=== PATIENT | male | born 1945 | race Caucasian/White ===

== ENCOUNTER → 2016-04-29 | Outpatient (CLI) | payer MEDICARE ==
[2016-04-29 09:59] LABS: ALT 28 U/L (21-72); AST 13 U/L (17-59); Alkaline Phosphatase 61 U/L (38-126); Anion Gap 15 mmol/L; Blood Urea Nitrogen 19 mg/dL (9-20); Calcium 9.3 mg/dL (8.4-10.2); Carbon Dioxide 23 mmol/L (22-30); Chloride 102 mmol/L (98-107); Cholesterol 126 mg/dL (<200); Glucose 151 mg/dL (74-99); HDL Cholesterol 54 mg/dL (40-60); Non-African American GFR(MDRD) >60 (>60 ml/min/1.73 sqM); Potassium 4.6 mmol/L (3.5-5.1); Sodium 140 mmol/L (137-145); Total Bilirubin 0.4 mg/dL (0.2-1.3); Total Protein 6.6 g/dL (6.3-8.2); Triglycerides 62 mg/dL (<150)
[2016-04-29 10:45] LABS: Vitamin B12 >1000 pg/mL
== END ==
LOC: LABWHC1 07:14
PROVIDERS: ATTEND Internal Medicine Endocrinology, Diabetes & Metabolism
DX: E11.65 Type 2 diabetes mellitus with hyperglycemia (principal); E78.5 Hyperlipidemia, unspecified; E89.2 Postprocedural hypoparathyroidism; D51.8 Other vitamin B12 deficiency anemias; I10 Essential (primary) hypertension
CPT/HCPCS: 36415; 80053; 80061; 82043; 82306; 82607; 83970

== ENCOUNTER 2016-06-21 15:38 | Emergency (ER) | payer MEDICARE ==
[2016-06-21 15:46] VITALS: BP 135/57; PULSE 91; RESP 20; TEMP 97.3
[2016-06-21] MEDS ORDERED: HYDROmorphone 1 MG/ML 1 ML SYRINGE IM STA (16:56)
--- NOTE | 2016-06-21 17:02 | ED ---
General Adult HPI - General Chief complaint: Recheck/Abnormal Lab/Rx Stated complaint: pain all over Time Seen by Provider: 06/21/16 16:34 Source: patient, RN notes reviewed Mode of arrival: ambulatory Limitations: no limitations - History of Present Illness Initial comments: Patient 71-year-old male who presents emergency room today with a chief complaint of chronic pain. Patient does admit that he's had pain ongoing over the last 3 months. He states been using his [place] he believes at home with little relief the symptoms more recently. Patient does admit that he was on steroids started 3 months ago which did seem to help with the symptoms but played with his sugar and he was taken off. He states all the pain is coming back now. States that he does have sciatic pain. He does admit to back surgeries and neck surgeries. Admits to numbness tingling in the arms or extremities. States she's had this in the past. Patient states that he is also had carpal tunnel surgery still having numbness tingling of the right hand. He denies any new symptoms. Denies any injuries or complaints. Patient denies any recent fever, chills, shortness of breath, chest pain, back pain, abdominal pain, nausea or vomiting, dysuria or hematuria, constipation or diarrhea, headaches or visual changes, or any other complaints. - Related Data Home Medications Medication Instructions Recorded Confirmed Aspirin 81 mg PO DAILY 01/17/14 10/06/15 Hydrocodone/Acetaminophen [Vicodin 1 tab PO QID PRN 01/17/14 10/06/15 Hp 10-300 mg Tablet] Omeprazole [PriLOSEC] 20 mg PO DAILY 01/17/14 10/06/15 Quinapril HCl 40 mg PO DAILY 01/17/14 10/06/15 glipiZIDE [Glucotrol] 10 mg PO BID 01/17/14 10/06/15 metFORMIN HCL 1,000 mg PO BID 01/17/14 10/06/15 amLODIPine BESYLATE [Norvasc] 10 mg PO DAILY 04/19/14 10/06/15 Atorvastatin [Lipitor] 40 mg PO DAILY 08/08/14 10/06/15 Cyanocobalamin [Vitamin B-12] 1,000 mcg SQ QMONTH 07/09/15 10/06/15 Ciprofloxacin HCl [Cipro] 500 mg PO Q12HR 10/06/15 10/06/15 metroNIDAZOLE [Flagyl] 500 mg PO TID 10/06/15 10/06/15 Previous Rx's Medication Instructions Recorded Dicyclomine HCl [Bentyl] 20 mg PO QID #30 tab 10/06/15 Naproxen [Naprosyn] 500 mg PO Q12HR #60 tab 10/06/15 Ondansetron HCl [Zofran] 4 mg PO Q8HR #30 tab 10/06/15 Allergies Allergy/AdvReac Type Severity Reaction Status Date / Time No Known Allergies Allergy Verified 06/21/16 15:46 Review of Systems ROS Statement: Those systems with pertinent positive or pertinent negative responses have been documented in the HPI. ROS Other: All systems not noted in ROS Statement are negative. Past Medical History Past Medical History: Coronary Artery Disease (CAD), Diabetes Mellitus, GERD/ Reflux, Hyperlipidemia, Hypertension History of Any Multi-Drug Resistant Organisms: None Reported Past Surgical History: Back Surgery, Heart Catheterization With Stent, Orthopedic Surgery Additional Past Surgical History / Comment(s): neck fusion, carpel tunnel Past Anesthesia/Blood Transfusion Reactions: No Reported Reaction Date of Last Stent Placement:: 2011 Past Psychological History: No Psychological Hx Reported Smoking Status: Never smoker Past Alcohol Use History: None Reported Past Drug Use History: None Reported General Exam - General Exam Comments Initial Comments: General: The patient is awake and alert, in no distress, and does not appear acutely ill. Eye: Pupils are equal, round and reactive to light, extra-ocular movements are intact. No nystagmus. There is normal conjunctiva bilaterally. No signs of icterus. Ears, nose, mouth and throat: There are moist mucous membranes and no oral lesions. Neck: The neck is supple, there is no tenderness or JVD. Cardiovascular: There is a regular rate and rhythm. No murmur, rub or gallop is appreciated. Respiratory: Lungs are clear to auscultation, respirations are non-labored, breath sounds are equal. No wheezes, stridor, rales, or rhonchi. Gastrointestinal: Soft, non-distended, non-tender abdomen without masses or organomegaly noted. There is no rebound or guarding present. No CVA tenderness. Bowel sounds are unremarkable. Musculoskeletal: Normal ROM, no tenderness. Strength 5/5. Sensation intact. Pulses equal bilaterally 2+. Neurological: A&O x 3. CN II-XII intact, There are no obvious motor or sensory deficits. Coordination appears grossly intact. Speech is normal. Skin: Skin is warm and dry and no rashes or lesions are noted. Psychiatric: Cooperative, appropriate mood & affect, normal judgment. Limitations: no limitations Course Vital Signs 06/21/16 15:40 Temperature 97.3 F L Pulse Rate 91 Respiratory 20 Rate Blood Pressure 135/57 O2 Sat by Pulse 96 Oximetry Medical Decision Making - Medical Decision Making Patient admits that these are chronic symptoms today. He denies any new injuries or complaints. Case discussed with attending physician . Patient be given a shot of pain medication given here in emergency room discharged and advised follow-up with family doctor. Disposition Clinical Impression: Chronic pain Disposition: HOME SELF-CARE Condition: Good Instructions: Chronic Pain (ED) Additional Instructions: Please follow-up family doctor over the next 2 days as discussed. Please return to emergency room if any symptoms increase or worsen or for any other concerns. Time of Disposition: 17:01
== END 2016-06-21 17:33 | disposition home or self-care (01) ==
LOC: EC 15:38
DX: G89.29 Other chronic pain (principal); M54.9 Dorsalgia, unspecified; E11.9 Type 2 diabetes mellitus without complications; E78.5 Hyperlipidemia, unspecified; I10 Essential (primary) hypertension; K21.9 Gastro-esophageal reflux disease without esophagitis; Z79.82 Long term (current) use of aspirin; Z79.84 Long term (current) use of oral hypoglycemic drugs; Z79.899 Other long term (current) drug therapy
CPT/HCPCS: 99283; 96372; J1170

== ENCOUNTER → 2016-08-12 | Outpatient (CLI) | payer MEDICARE ==
[2016-08-12 12:21] LABS: ALT 37 U/L (21-72); AST 14 U/L (17-59); Alkaline Phosphatase 51 U/L (38-126); Anion Gap 13 mmol/L; Blood Urea Nitrogen 26 mg/dL (9-20); Calcium 9.4 mg/dL (8.4-10.2); Carbon Dioxide 24 mmol/L (22-30); Chloride 106 mmol/L (98-107); Cholesterol 172 mg/dL (<200); Glucose 84 mg/dL (74-99); HDL Cholesterol 66 mg/dL (40-60); Non-African American GFR(MDRD) >60 (>60 ml/min/1.73 sqM); Potassium 4.3 mmol/L (3.5-5.1); Sodium 143 mmol/L (137-145); Total Bilirubin 0.3 mg/dL (0.2-1.3); Total Protein 6.6 g/dL (6.3-8.2); Triglycerides 124 mg/dL (<150)
[2016-08-12 13:06] LABS: Vitamin B12 948 pg/mL
== END | disposition home or self-care (01) ==
LOC: LABWHC1 07:33
PROVIDERS: ATTEND Internal Medicine Endocrinology, Diabetes & Metabolism
DX: E11.65 Type 2 diabetes mellitus with hyperglycemia (principal)
CPT/HCPCS: 36415; 80053; 80061; 82043; 82306; 82607

== ENCOUNTER → 2016-09-13 | Outpatient (CLI) | payer MEDICARE ==
--- NOTE | 2016-09-13 08:45 | MR ---
EXAMINATION TYPE: MR lumbar spine wo/w con DATE OF EXAM: 09/13/2016 COMPARISON: Prior lumbar MRI 08/15/2012 HISTORY: Low back pain TECHNIQUE: Multiplanar, multisequence images of the lumbar spine were acquired utilizing 17 mL intravenous Multi Nel gadolinium contrast. L1-L2: Similar to prior exam. Mild facet arthropathy, no significant spinal stenosis or foraminal enc roachment, no disc herniation. L2-L3: Circumferential posterior disc bulge causes anterior mass effect on the thecal sac, spinal catalina nosis shows a similar appearance and is mild. No significant foraminal encroachment. There is facet a rthropathy encroaching on the lateral recesses. L3-L4: There has been interval disc herniation present. Extension in the right posterior paracentral location results in marked encroachment on the right neural foramen as well as anterolateral mass eff ect on the thecal sac. Some peripheral enhancement is present posterior to the L4 vertebral body like ly some granulation tissue at the level of disc herniation or possibly sequestered fragment in the ri ght paracentral location. Facet arthropathy changes are present. Only mild spinal stenosis. L4-L5: Laminectomy changes are present, there is mild spinal stenosis. Posterior extension of endplat e disc complex causes anterior mass effect on the thecal sac. Differential extension of endplate disc complex results in bilateral foraminal encroachment left greater than right. L5-S1: Broad-based posterior disc bulge contacts anterior thecal sac and possibly the S1 nerve roots right greater than left, circumferential extension of endplate disc complex results in bilateral fora regina encroachment as on prior exam. There are facet arthropathy changes. There is mild spinal stenos is. Findings are similar appearance to prior exam. Lumbar segments are intact. No paraspinal masses are identified. Conus medullaris has a normal appe arance. There is loss of disc height and signal greatest at L3-4, L4-5, there is endplate discogenic marrow signal change, large Schmorl's node present at the inferior aspect of L3 which has progressed in the interval. Multilevel vacuum disc phenomenon present at the intervertebral levels. Multilevel s pondylosis is present. Minimal retrolisthesis grade 1 L4-5, there is a mild spinal curvature. IMPRESSION: Disc herniation is an interval finding with probable sequestered fragment posterior to the L4 vertebr al body in the right paracentral location. Multilevel degenerative disc disease, foraminal encroachme nt, postop changes, spinal curvature and facet arthropathy. There is some improvement in spinal steno sis.
== END | disposition home or self-care (01) ==
LOC: RADMRIMAIN 07:13
PROVIDERS: ATTEND Internal Medicine
DX: M48.06 Spinal stenosis, lumbar region (principal); M51.26 Other intervertebral disc displacement, lumbar region; M51.36 Other intervertebral disc degeneration, lumbar region; M46.06 Spinal enthesopathy, lumbar region; M43.8X6 Other specified deforming dorsopathies, lumbar region
CPT/HCPCS: 72158; A9577

== ENCOUNTER → 2016-09-16 | Outpatient (CLI) | payer MEDICARE ==
--- NOTE | 2016-09-16 10:05 | BD ---
EXAMINATION TYPE: MG DEXA axial skeleton. 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 History of Fracture in Adulthood: YES Secondary Osteoporosis: 1. Type 1 Diabetes: NO 2. Hyperthyroidism: NO 3. Menopause before 45: NA 4. Malnutrition: NO 5. Chronic liver disease: NO Rheumatoid Arthritis: NO Current Tobacco Use: NO RISK FACTORS HISTORY OF: Surgery to Spine/Hip(right/left)/Wrist (right/left): CSPINE 2007 ,LUMBAR 1979 AND 2009 Family History of Osteoporosis: YES Active: NO MEDICATIONS: Prednisone or other steroids: YES How Lon05/2016 Additional Medications: PREDNISONE, OMEPRAZOLE, ACCUPRIL, ASPIRIN, GLUCOPHAGE, GLUCOTROL, QUINPRIL, P REVACHOL,AMLODIIPINE, NYTROGLYCERINE,ATORVASTATIN Additional History: EXAM MEASUREMENTS: Bone mineral densitometry was performed using the [employer] System. Bone mineral density as measured about the Lumbar spine is: ----- L1-L4(G/cm2): LUMBAR SURG X 2 Bone mineral density about the R hip (g/cm2): 0.952 Bone mineral density about the L hip (g/cm2): 1.060 T Score values are as follows: -----R Neck: -0.6 -----L Neck: 0.2 -----R Total: -0.5 -----L Total: -0.1 Bone mineral density has: Decreased -3.2% since study of: 2013 IMPRESSION: No evidence for osteoporosis or osteopenia. NOTE: T-SCORE=SD OF THE YOUNG ADULT MEAN.
== END | disposition home or self-care (01) ==
LOC: RADBDWWP 07:03
PROVIDERS: ATTEND Internal Medicine
DX: Z79.52 Long term (current) use of systemic steroids (principal)
CPT/HCPCS: 77080

== ENCOUNTER → 2016-12-03 | Outpatient (CLI) | payer MEDICARE ==
[2016-12-03 07:57] LABS: EKG EKG PERFORMED
[2016-12-03 08:33] LABS: Basophils % (A) 1 %; CH 29.2; CHCM 32.4; Eosinophils # (A) 0.1 k/uL (0-0.7); Eosinophils % (A) 1 %; HCT 41.8 % (39.0-53.0); HGB 13.5 gm/dL (13.0-17.5); Luc # (Auto) 0.13; Luc % (Auto) 2; Lymphocytes # (A) 1.4 k/uL (1.0-4.8); Lymphocytes % (A) 21 %; MCH 29.3 pg (25.0-35.0); MCHC 32.3 g/dL (31.0-37.0); MCV 90.8 fL (80.0-100.0); Mean Platelet Volume 6.8; Monocytes # (A) 0.2 k/uL (0-1.0); Monocytes % (A) 4 %; Neutrophils # (A) 4.7 k/uL (1.3-7.7); Neutrophils % (A) 72 %; RDW 14.7 % (11.5-15.5); WBC 6.6 k/uL (3.8-10.6); WBC (Perox) 6.79
[2016-12-03 08:34] LABS: Partial Thromboplastin Time 25.5 sec (22.0-30.0); Prothrombin Time 10.4 sec (9.0-12.0)
[2016-12-03 08:39] LABS: ALT 44 U/L (21-72); AST 22 U/L (17-59); Alkaline Phosphatase 80 U/L (38-126); Anion Gap 14 mmol/L; Blood Urea Nitrogen 19 mg/dL (9-20); Calcium 9.6 mg/dL (8.4-10.2); Carbon Dioxide 20 mmol/L (22-30); Chloride 103 mmol/L (98-107); Glucose 210 mg/dL (74-99); Non-African American GFR(MDRD) >60 (>60 ml/min/1.73 sqM); Potassium 5.1 mmol/L (3.5-5.1); Sodium 137 mmol/L (137-145); Total Bilirubin 0.5 mg/dL (0.2-1.3); Total Protein 7.6 g/dL (6.3-8.2)
[2016-12-03 09:04] LABS: Appearance,Urine Clear (Clear); Bilirubin,Urine Negative (Negative); Glucose,Urine (UA) Trace (Negative); Ketones,Urine Negative (Negative); Leukocyte Esterase,Urine Negative (Negative); Nitrite,Urine Negative (Negative); PH, Urine 5.5 (5.0-8.0); Protein,Urine Negative (Negative); Specific Gravity,Urine 1.013 (1.001-1.035); UA Billing (MACRO vs. MICRO) CHEM; Urobilinogen,Urine <2.0 mg/dL (<2.0)
== END | disposition home or self-care (01) ==
LOC: LABWHC1 07:48
DX: M51.36 Other intervertebral disc degeneration, lumbar region (principal); Z79.01 Long term (current) use of anticoagulants
CPT/HCPCS: 36415; 80053; 81003; 85025; 85610; 85730; 93005

== ENCOUNTER → 2016-12-09 | Outpatient (CLI) | payer MEDICARE ==
[2016-12-09 11:25] LABS: Hemoglobin A1C 6.7 % (4.2-6.1)
[2016-12-09 13:33] LABS: ALT 42 U/L (21-72); AST 19 U/L (17-59); Alkaline Phosphatase 72 U/L (38-126); Anion Gap 14 mmol/L; Blood Urea Nitrogen 19 mg/dL (9-20); Carbon Dioxide 22 mmol/L (22-30); Chloride 102 mmol/L (98-107); Cholesterol 190 mg/dL (<200); Glucose 154 mg/dL (74-99); HDL Cholesterol 55 mg/dL (40-60); Non-African American GFR(MDRD) >60 (>60 ml/min/1.73 sqM); Potassium 4.6 mmol/L (3.5-5.1); Sodium 138 mmol/L (137-145); Total Bilirubin 0.5 mg/dL (0.2-1.3); Total Protein 7.3 g/dL (6.3-8.2)
[2016-12-09 14:31] LABS: Vitamin B12 >1000 pg/mL
== END | disposition home or self-care (01) ==
LOC: LABWHC1 08:08
PROVIDERS: ATTEND Internal Medicine Interventional Cardiology
DX: E78.2 Mixed hyperlipidemia (principal); E11.65 Type 2 diabetes mellitus with hyperglycemia; E55.9 Vitamin D deficiency, unspecified; E53.8 Deficiency of other specified B group vitamins
CPT/HCPCS: 36415; 80053; 80061; 82306; 82607; 83036

== ENCOUNTER → 2017-01-07 | Outpatient (CLI) | payer MEDICARE ==
--- NOTE | 2017-01-07 08:54 | XR ---
EXAMINATION TYPE: XR lumbar spine 2 or 3V DATE OF EXAM: 01/07/2017 COMPARISON: 09/13/2016 MRI HISTORY: 71-year-old male follow-up after lumbar fusion TECHNIQUE: 3 views FINDINGS: Post surgical changes of L3-S1 posterior fusion. There appear to be laminectomy at these correspondin g levels with incompletely consolidated lateral osseous fusion. Fixed grade 1 retrolisthesis L3-L4 wa s present on the prior MRI. Vertebral body heights are maintained. IMPRESSION: Postsurgical changes of L3-S1 posterior fusion with corresponding laminectomies. Vertebral body heigh ts are maintained.
== END ==
LOC: RADXRMAIN 08:15
DX: M43.26 Fusion of spine, lumbar region (principal)
CPT/HCPCS: 72100

== ENCOUNTER → 2017-01-17 | Outpatient (CLI) | payer MEDICARE ==
--- NOTE | 2017-01-17 09:06 | XR ---
EXAMINATION TYPE: XR chest 2V DATE OF EXAM: 01/17/2017 COMPARISON: 07/09/2015 TECHNIQUE: PA and lateral views submitted. HISTORY: Cough FINDINGS: Elevated left hemidiaphragm pleural thickening effusion stable. Previous surgery involving the cervic al spine. Pulmonary arteries are slightly prominent size. No pneumothorax or pleural effusion. Linear density in the left upper lobe is also stable suggestive of scar or atelectasis. IMPRESSION: 1. Chronic pleural-parenchymal changes.
== END ==
LOC: RADXRMAIN 08:24
PROVIDERS: ATTEND Internal Medicine
DX: J98.4 Other disorders of lung (principal)
CPT/HCPCS: 71020

== ENCOUNTER → 2017-04-09 | Outpatient (CLI) | payer MEDICARE ==
--- NOTE | 2017-04-09 09:37 | XR ---
EXAMINATION TYPE: XR lumbar spine 2 or 3V DATE OF EXAM: 04/09/2017 CLINICAL HISTORY: Spinal stenosis, back pain, and prior surgical fusion in December. TECHNIQUE: Frontal and lateral views of the lumbar spine were obtained. COMPARISON: 01/17/2019 FINDINGS: Pedicular screws and fixation rods traverse the L3-S1 vertebral levels with resection of th e posterior elements at these levels and intervertebral disc age at L5-S1. Retrolisthesis (grade 1) o f L3 on L4 is unchanged from the prior exam. Multilevel intervertebral disc space narrowing, endplate sclerosis and small anterior osteophytes are seen. Heterotopic ossification is noted at the facets. Vertebral bodies maintain normal vertebral body heights. Mild atherosclerosis is seen of the abdomina l aorta and its branches. IMPRESSION: Unchanged minimal retrolisthesis of L3 on L4 in comparison to the prior, surgically fixat ed. Stable postsurgical changes of L3-S1.
== END ==
LOC: RADXRMAIN 09:05
DX: M48.062 Spinal stenosis, lumbar region with neurogenic claudication (principal); Z98.890 Other specified postprocedural states
CPT/HCPCS: 72100

== ENCOUNTER → 2017-06-30 | Outpatient (CLI) | payer MEDICARE ==
[2017-06-30 07:54] LABS: Albumin 4.4 g/dL (3.5-5.0); Calcium 9.6 mg/dL (8.4-10.2); Potassium 4.8 mmol/L (3.5-5.1); Total Bilirubin 0.5 mg/dL (0.2-1.3); Total Protein 7.1 g/dL (6.3-8.2)
--- NOTE | 2017-06-30 07:55 | XR ---
EXAMINATION TYPE: XR lumbar spine 2 or 3V DATE OF EXAM: 06/30/2017 CLINICAL HISTORY: Back pain with lumbar surgery in December 2016. TECHNIQUE: Frontal and lateral images of the lumbar spine are obtained. COMPARISON: None FINDINGS: There are 5 lumbar type vertebral bodies identified. There is fusion of the L3-S1 vertebr al bodies with intervertebral disc cages, pedicular rods and fixation screws. There is resection of t he posterior elements at these levels. Old healed callused fracture of the transverse process of L3 o n the left is noted. Right transverse process at L1 is hypoplastic. Lumbar spine vertebral bodies bo ntain vertebral body height and alignment. Mild multilevel degenerative changes are demonstrated as s mall anterior osteophytes. Mild calcific atheromatous changes are present of the abdominal aorta. IMPRESSION: 1. Postsurgical changes of L3-S1 with no acute fracture or malalignment is seen in the lumbar spine. 2. Mild multilevel degenerative changes and old healed fracture deformity of the transverse process o f L3 on the left.
[2017-06-30 20:28] LABS: Hemoglobin A1C 6.6 % (4.0-6.0)
== END | disposition home or self-care (01) ==
LOC: LABWHC1 07:00
PROVIDERS: ATTEND Internal Medicine Endocrinology, Diabetes & Metabolism
DX: M47.816 Spondylosis without myelopathy or radiculopathy, lumbar region (principal); E78.2 Mixed hyperlipidemia; Z98.1 Arthrodesis status; E11.65 Type 2 diabetes mellitus with hyperglycemia
CPT/HCPCS: 36415; 72100; 80053; 80061; 82043; 82306; 82570; 82607; 83036

== ENCOUNTER 2017-08-28 19:16 | Inpatient (IN) | payer MEDICARE ==
[2017-08-28] MEDS ORDERED: KETOROLAC 30 MG/ML 1 ML VIAL IVP STA (21:09)
[2017-08-28] MEDS ORDERED: SODIUM CHLORIDE 0.9% 500 ML IV STA (21:09)
--- NOTE | 2017-08-28 21:14 | ED ---
General Adult HPI - General Chief complaint: Chest Pain Stated complaint: chest pain/fever/upset stomach Time Seen by Provider: 08/28/17 21:00 Source: patient, RN notes reviewed, old records reviewed Mode of arrival: ambulatory Limitations: no limitations - History of Present Illness Initial comments: 72-year-old male presenting for evaluation of fever, sore throat, and chest pain. Patient states he's had these symptoms throughout the day today. It began this morning which was approximately 12-14 hours prior to arrival. He's felt very weak and fatigue throughout the day. Denies cough. Denies rhinorrhea. Chief complaint is sore throat however he did have some central chest pain. This was constant throughout the day. He does have history of CAD and previous stenting. No dyspnea. No vomiting or diarrhea. He had some mild abdominal pain which was primarily left lower quadrant. No dysuria or hematuria. - Related Data Home Medications Medication Instructions Recorded Confirmed Quinapril HCl 40 mg PO DAILY 01/17/14 08/28/17 glipiZIDE [Glucotrol] 10 mg PO BID 01/17/14 08/28/17 metFORMIN HCL 1,000 mg PO BID 01/17/14 08/28/17 amLODIPine BESYLATE [Norvasc] 10 mg PO DAILY 04/19/14 08/28/17 Atorvastatin [Lipitor] 40 mg PO DAILY 08/08/14 08/28/17 HYDROcodone/APAP 10-325MG [[place] 1 tab PO QID PRN 06/21/16 08/28/17 10-325] Pregabalin [Lyrica] 150 mg PO BID 06/21/16 08/28/17 Aspirin EC [Ecotrin Low Dose] 81 mg PO DAILY 08/28/17 08/28/17 Omeprazole 20 mg PO DAILY 08/28/17 08/28/17 Allergies Allergy/AdvReac Type Severity Reaction Status Date / Time No Known Allergies Allergy Verified 08/28/17 21:44 Review of Systems ROS Statement: Those systems with pertinent positive or pertinent negative responses have been documented in the HPI. ROS Other: All systems not noted in ROS Statement are negative. Past Medical History Past Medical History: Coronary Artery Disease (CAD), Diabetes Mellitus, GERD/ Reflux, Hyperlipidemia, Hypertension History of Any Multi-Drug Resistant Organisms: None Reported Past Surgical History: Back Surgery, Heart Catheterization With Stent, Orthopedic Surgery Additional Past Surgical History / Comment(s): neck fusion, carpel tunnel Past Anesthesia/Blood Transfusion Reactions: No Reported Reaction Date of Last Stent Placement:: 2011 Past Psychological History: No Psychological Hx Reported Smoking Status: Never smoker Past Alcohol Use History: None Reported Past Drug Use History: None Reported General Exam Limitations: no limitations General appearance: alert, in no apparent distress Head exam: Present: atraumatic, normocephalic Eye exam: Present: normal appearance, PERRL, EOMI ENT exam: Present: other (Tonsillar swelling with erythema, no exudate) Neck exam: Present: normal inspection, full ROM. Absent: tenderness, meningismus Respiratory exam: Present: normal lung sounds bilaterally. Absent: respiratory distress, wheezes Cardiovascular Exam: Present: regular rate, normal rhythm GI/Abdominal exam: Present: soft, tenderness (Left lower quadrant tenderness to palpation). Absent: distended, guarding, rebound Extremities exam: Present: normal inspection, normal capillary refill. Absent: calf tenderness Neurological exam: Present: alert, oriented X3, CN II-XII intact. Absent: motor sensory deficit Psychiatric exam: Present: normal affect, normal mood Skin exam: Present: warm, dry, intact. Absent: cyanosis, diaphoretic Course Vital Signs 08/28/17 08/28/17 08/28/17 19:18 21:17 21:24 Temperature 98.3 F Pulse Rate 76 72 Pulse Rate [ 72 Silverlight Developer ] Respiratory 20 18 Rate Blood Pressure 156/76 128/84 O2 Sat by Pulse 98 97 Oximetry 08/28/17 08/28/17 22:16 23:54 Temperature 98.6 F 100.7 F H Pulse Rate 75 91 Pulse Rate [ Silverlight Developer ] Respiratory 16 19 Rate Blood Pressure 142/63 163/68 O2 Sat by Pulse 98 97 Oximetry EKG Findings - EKG Comments: EKG Findings:: EKG: Normal sinus rhythm, rate of 76, [place] interval 174, QRS duration 86, QTC 420, no ST segment elevation or depression Medical Decision Making - Medical Decision Making 72-year-old male presenting for fever, sore throat, and chest pain. Patient's had shaking chills on exam. Fever workup: Chest x-ray negative for focal pneumonia, white blood cell count is elevated at 12.3, electrolytes are unremarkable. Patient did have some left lower quadrant tenderness to palpation , CT was obtained, this was negative for colitis or diverticulitis. CT did show an infiltrate in the lung may be concerning for pneumonia given his presentation of fever and chest pain. Urinalysis is negative. Initially plan to discharge the patient with oral antibiotics. On reevaluation patient appears significantly worse, with rigors, shaking chills, generalized weakness. He will be admitted for IV hydration, antibiotics for presumed community- acquired pneumonia given the findings on CT. - Lab Data Result diagrams: 08/28/17 21:14 08/28/17 21:14 Lab Results 08/28/17 08/28/17 08/28/17 Range/Units 21:14 21:14 21:14 WBC 12.3 H (3.8-10.6) k/uL RBC 4.33 (4.30-5.90) m/uL Hgb 12.5 L (13.0-17.5) gm/dL Hct 37.3 L (39.0-53.0) % MCV 86.3 (80.0-100.0) fL MCH 28.9 (25.0-35.0) pg MCHC 33.5 (31.0-37.0) g/dL RDW 14.4 (11.5-15.5) % Plt Count 237 (150-450) k/uL Neutrophils % 84 % Lymphocytes % 9 % Monocytes % 5 % Eosinophils % 1 % Basophils % 0 % Neutrophils # 10.3 H (1.3-7.7) k/uL Lymphocytes # 1.1 (1.0-4.8) k/uL Monocytes # 0.6 (0-1.0) k/uL Eosinophils # 0.1 (0-0.7) k/uL Basophils # 0.0 (0-0.2) k/uL PT (9.0-12.0) sec INR (<1.2) APTT (22.0-30.0) sec Sodium 134 L (137-145) mmol/L Potassium 5.0 (3.5-5.1) mmol/L Chloride 96 L (98-107) mmol/L Carbon Dioxide 24 (22-30) mmol/L Anion Gap 14 mmol/L BUN 21 H (9-20) mg/dL Creatinine 1.10 (0.66-1.25) mg/dL Est GFR (CKD-EPI)AfAm 77 (>60 ml/min/1.73 sqM) Est GFR (CKD-EPI)NonAf 66 (>60 ml/min/1.73 sqM) Glucose 146 H (74-99) mg/dL Plasma Lactic Acid Hossein (0.7-2.0) mmol/L Calcium 9.1 (8.4-10.2) mg/dL Magnesium 1.5 L (1.6-2.3) mg/dL Total Bilirubin 0.6 (0.2-1.3) mg/dL AST 26 (17-59) U/L ALT 36 (21-72) U/L Alkaline Phosphatase 73 (38-126) U/L Total Creatine Kinase 292 H (55-170) U/L CK-MB (CK-2) 2.2 (0.0-2.4) ng/mL CK-MB (CK-2) Rel Index 0.8 Troponin I <0.012 (0.000-0.034) ng/mL Total Protein 7.2 (6.3-8.2) g/dL Albumin 4.6 (3.5-5.0) g/dL Lipase 46 (23-300) U/L Urine Color Urine Appearance (Clear) Urine pH (5.0-8.0) Ur Specific [place] (1.001-1.035) Urine Protein (Negative) Urine Glucose (UA) (Negative) Urine Ketones (Negative) Urine Blood (Negative) Urine Nitrite (Negative) Urine Bilirubin (Negative) Urine Urobilinogen (<2.0) mg/dL Ur Leukocyte Esterase (Negative) Group A Strep Rapid (Negative) 08/28/17 08/28/17 08/28/17 Range/Units 21:14 21:14 21:26 WBC (3.8-10.6) k/uL RBC (4.30-5.90) m/uL Hgb (13.0-17.5) gm/dL Hct (39.0-53.0) % MCV (80.0-100.0) fL MCH (25.0-35.0) pg MCHC (31.0-37.0) g/dL RDW (11.5-15.5) % Plt Count (150-450) k/uL Neutrophils % % Lymphocytes % % Monocytes % % Eosinophils % % Basophils % % Neutrophils # (1.3-7.7) k/uL Lymphocytes # (1.0-4.8) k/uL Monocytes # (0-1.0) k/uL Eosinophils # (0-0.7) k/uL Basophils # (0-0.2) k/uL PT 10.4 (9.0-12.0) sec INR 1.1 (<1.2) APTT 25.0 (22.0-30.0) sec Sodium (137-145) mmol/L Potassium (3.5-5.1) mmol/L Chloride (98-107) mmol/L Carbon Dioxide (22-30) mmol/L Anion Gap mmol/L BUN (9-20) mg/dL Creatinine (0.66-1.25) mg/dL Est GFR (CKD-EPI)AfAm (>60 ml/min/1.73 sqM) Est GFR (CKD-EPI)NonAf (>60 ml/min/1.73 sqM) Glucose (74-99) mg/dL Plasma Lactic Acid Hossein 1.7 (0.7-2.0) mmol/L Calcium (8.4-10.2) mg/dL Magnesium (1.6-2.3) mg/dL Total Bilirubin (0.2-1.3) mg/dL AST (17-59) U/L ALT (21-72) U/L Alkaline Phosphatase (38-126) U/L Total Creatine Kinase (55-170) U/L CK-MB (CK-2) (0.0-2.4) ng/mL CK-MB (CK-2) Rel Index Troponin I (0.000-0.034) ng/mL Total Protein (6.3-8.2) g/dL Albumin (3.5-5.0) g/dL Lipase (23-300) U/L Urine Color Colorless Urine Appearance Clear (Clear) Urine pH 5.5 (5.0-8.0) Ur Specific [place] 1.004 (1.001-1.035) Urine Protein Negative (Negative) Urine Glucose (UA) Negative (Negative) Urine Ketones Negative (Negative) Urine Blood Negative (Negative) Urine Nitrite Negative (Negative) Urine Bilirubin Negative (Negative) Urine Urobilinogen <2.0 (<2.0) mg/dL Ur Leukocyte Esterase Negative (Negative) Group A Strep Rapid (Negative) 08/28/17 Range/Units 21:26 WBC (3.8-10.6) k/uL RBC (4.30-5.90) m/uL Hgb (13.0-17.5) gm/dL Hct (39.0-53.0) % MCV (80.0-100.0) fL MCH (25.0-35.0) pg MCHC (31.0-37.0) g/dL RDW (11.5-15.5) % Plt Count (150-450) k/uL Neutrophils % % Lymphocytes % % Monocytes % % Eosinophils % % Basophils % % Neutrophils # (1.3-7.7) k/uL Lymphocytes # (1.0-4.8) k/uL Monocytes # (0-1.0) k/uL Eosinophils # (0-0.7) k/uL Basophils # (0-0.2) k/uL PT (9.0-12.0) sec INR (<1.2) APTT (22.0-30.0) sec Sodium (137-145) mmol/L Potassium (3.5-5.1) mmol/L Chloride (98-107) mmol/L Carbon Dioxide (22-30) mmol/L Anion Gap mmol/L BUN (9-20) mg/dL Creatinine (0.66-1.25) mg/dL Est GFR (CKD-EPI)AfAm (>60 ml/min/1.73 sqM) Est GFR (CKD-EPI)NonAf (>60 ml/min/1.73 sqM) Glucose (74-99) mg/dL Plasma Lactic Acid Hossein (0.7-2.0) mmol/L Calcium (8.4-10.2) mg/dL Magnesium (1.6-2.3) mg/dL Total Bilirubin (0.2-1.3) mg/dL AST (17-59) U/L ALT (21-72) U/L Alkaline Phosphatase (38-126) U/L Total Creatine Kinase (55-170) U/L CK-MB (CK-2) (0.0-2.4) ng/mL CK-MB (CK-2) Rel Index Troponin I (0.000-0.034) ng/mL Total Protein (6.3-8.2) g/dL Albumin (3.5-5.0) g/dL Lipase (23-300) U/L Urine Color Urine Appearance (Clear) Urine pH (5.0-8.0) Ur Specific [place] (1.001-1.035) Urine Protein (Negative) Urine Glucose (UA) (Negative) Urine Ketones (Negative) Urine Blood (Negative) Urine Nitrite (Negative) Urine Bilirubin (Negative) Urine Urobilinogen (<2.0) mg/dL Ur Leukocyte Esterase (Negative) Group A Strep Rapid Negative (Negative) Disposition Clinical Impression: Community acquired pneumonia Disposition: ADMITTED IP TO THIS HOSP Condition: Stable Is patient prescribed a controlled substance at d/c from ED?: No Referrals: Rufus Monreal MD [Primary Care Provider] - 1-2 days Time of Disposition: 23:30
[2017-08-28 21:32] LABS: Basophils % (A) 0 %; Eosinophils # (A) 0.1 k/uL (0-0.7); Eosinophils % (A) 1 %; HCT 37.3 % (39.0-53.0); HGB 12.5 gm/dL (13.0-17.5); Lymphocytes # (A) 1.1 k/uL (1.0-4.8); Lymphocytes % (A) 9 %; MCH 28.9 pg (25.0-35.0); MCHC 33.5 g/dL (31.0-37.0); MCV 86.3 fL (80.0-100.0); Mean Platelet Volume 6.6; Monocytes # (A) 0.6 k/uL (0-1.0); Monocytes % (A) 5 %; Neutrophils # (A) 10.3 k/uL (1.3-7.7); Neutrophils % (A) 84 %; Platelet Count 237 k/uL (150-450); RBC 4.33 m/uL (4.30-5.90); RDW 14.4 % (11.5-15.5); WBC 12.3 k/uL (3.8-10.6)
[2017-08-28 21:36] LABS: INR 1.1 (<1.2); Prothrombin Time 10.4 sec (9.0-12.0)
[2017-08-28 21:43] LABS: Appearance,Urine Clear (Clear); Bilirubin,Urine Negative (Negative); Blood,Urine Negative (Negative); Color,Urine Colorless; Glucose,Urine (UA) Negative (Negative); Ketones,Urine Negative (Negative); Leukocyte Esterase,Urine Negative (Negative); Nitrite,Urine Negative (Negative); PH, Urine 5.5 (5.0-8.0); Protein,Urine Negative (Negative); Specific Gravity,Urine 1.004 (1.001-1.035); Urobilinogen,Urine <2.0 mg/dL (<2.0)
[2017-08-28 21:46] LABS: Creatine Kinase 292 U/L (55-170)
[2017-08-28 21:47] LABS: Albumin 4.6 g/dL (3.5-5.0); Calcium 9.1 mg/dL (8.4-10.2); Magnesium 1.5 mg/dL (1.6-2.3); Total Bilirubin 0.6 mg/dL (0.2-1.3); Total Protein 7.2 g/dL (6.3-8.2)
[2017-08-28 21:58] LABS: Creatine Kinase MB 2.2 ng/mL (0.0-2.4); Troponin I <0.012 ng/mL (0.000-0.034)
--- NOTE | 2017-08-28 22:00 | XR ---
EXAMINATION TYPE: XR chest 2V DATE OF EXAM: 08/28/2017 COMPARISON: 01/17/2017 HISTORY: Chest pain TECHNIQUE: Frontal and lateral views of the chest are obtained. FINDINGS: Heart and mediastinum are normal. There is some blunting of left costophrenic angle. There is no heart failure. There is no pleural effusion. Bony thorax is intact. There is small area of sub segmental atelectasis in the left midlung. IMPRESSION: Pleural diaphragmatic scarring at the left lung base without change. Normal heart.
--- NOTE | 2017-08-28 23:39 | CT ---
EXAMINATION TYPE: CT abdomen pelvis w con DATE OF EXAM: 08/28/2017 COMPARISON: 10/06/2015 HISTORY: Lower abdominal pain with an elevated WBC CT DLP: 1132.40 mGycm Automated exposure control for dose reduction was used. TECHNIQUE: Helical acquisition of images was performed from the lung bases through the pelvis. CONTRAST: Performed without Oral Contrast and with IV Contrast, patient injected with 100 mL of Isovue 300. FINDINGS: There is coarse interstitial density at the lung bases consistent with infiltrate and atelectasis. Th ere is no pericardial effusion. There is no pleural effusion. Liver spleen pancreas gallbladder appea r normal. Bile ducts are not dilated. There are small hiatal hernia. There is no adrenal mass. Kidneys show satisfactory contrast opacification. There is no hydronephrosi s. Ureters are not dilated. Abdominal aorta is atheromatous. There is metal artifact from multilevel posterior fusion surgery of the lumbar spine. I see no intestinal wall thickening. There are no dilated loops. Appendix appears normal. There is no ascites. Bladder distends smoothly. There is no free fluid in the pelvis. I see no bony destructive process. There is no evidence of a hernia. IMPRESSION: MILD INFILTRATE AND ATELECTASIS AT THE LUNG BASES. SMALL HIATAL HERNIA. THERE IS CLEARING OF THE INFL AMMATORY CHANGES IN THE LARGE BOWEL COMPARED TO OLD EXAM. NO EVIDENCE OF COLITIS.
[2017-08-28] MEDS ORDERED: SODIUM CHLORIDE 0.9% 500 ML IV ONE (23:46)
[2017-08-28] MEDS ORDERED: ACETAMINOPHEN TAB 500 MG TAB PO STA (23:46)
[2017-08-29] MEDS ORDERED: cefTRIAXone IN SWFI 1,000 MG/10 ML SYRINGE IVP STA (00:12)
[2017-08-29] MEDS ORDERED: AZITHROMYCIN 500 MG in DEXTROSE 5% IN WATER 250 ML IVPB STA ×2 (00:12)
--- NOTE | 2017-08-29 00:24 | CT ---
EXAMINATION TYPE: CT soft tissue neck w con DATE OF EXAM: 08/29/2017 12:09 AM COMPARISON: NONE HISTORY: pt. c/o sore throat with an elevated WBC and fever CT DLP: 530.00 mGycm Automated exposure control for dose reduction was used. CONTRAST: CT scan of the neck is performed following with IV Contrast, patient injected with 50 mL of Isovue 30 0. Axial images are obtained, coronal and sagittal reformatted images are reviewed. FINDINGS: The trachea appears normal. There is normal branching pattern of the great vessels on the aortic arch . There is bilateral contrast opacification of carotid arteries and jugular veins. There is bilateral opacification of the vertebral arteries. Epiglottis appears normal. There is no evidence of pharynge al mass. Tonsils and adenoids appear normal. There is cervical spine fusion surgery. There are multip le calcifications in the oral pharynx on the left side. There are a few similar calcifications on the right side. These could be in the parotid duct. Parotid glands are symmetric. The submandibular salivary glands are symmetric. I see no bony destruct khai process. There are anterior triangle and posterior triangle multiple bilateral cervical lymph nod es. These measure up to 16 x 10 mm. IMPRESSION: Mild cervical adenopathy. No evidence of pharyngeal mass. Normal epiglottis. No retropha ryngeal mass. Multiple calcifications could relate to parotid duct stones or old granulomatous disease..
[2017-08-29] MEDS ORDERED: IBUPROFEN 400 MG TAB PO PRN (00:46)
[2017-08-29] MEDS ORDERED: NALOXONE 0.4 MG/ML 1 ML VIAL IV PRN (00:46)
[2017-08-29] MEDS ORDERED: ONDANSETRON 4 MG/2 ML VIAL IVP PRN (00:46)
[2017-08-29] MEDS: SODIUM CHLORIDE 0.9% 1,000 ML IV SCH ×2 (01:03→12:46)
[2017-08-29 01:40] VITALS: BMI 29.0
[2017-08-29] MEDS: ACETAMINOPHEN TAB 325 MG TAB PO PRN ×3 (04:49→21:07)
[2017-08-29] MEDS ORDERED: glipiZIDE 10 MG TAB PO SCH (07:30)
[2017-08-29 07:43] LABS: Glucose,Whole Blood 202 mg/dL (75-99)
[2017-08-29 07:51] LABS: Basophils % (A) 0 %; Eosinophils % (A) 0 %; HCT 35.3 % (39.0-53.0); HGB 11.7 gm/dL (13.0-17.5); Lymphocytes # (A) 0.6 k/uL (1.0-4.8); Lymphocytes % (A) 4 %; MCH 28.5 pg (25.0-35.0); MCHC 33.1 g/dL (31.0-37.0); MCV 86.2 fL (80.0-100.0); Mean Platelet Volume 6.9; Monocytes % (A) 7 %; Neutrophils # (A) 11.2 k/uL (1.3-7.7); Neutrophils % (A) 86 %; Platelet Count 193 k/uL (150-450); RDW 14.5 % (11.5-15.5)
[2017-08-29 08:11] LABS: Albumin 3.7 g/dL (3.5-5.0); Calcium 8.7 mg/dL (8.4-10.2); Magnesium 1.7 mg/dL (1.6-2.3); Potassium 4.5 mmol/L (3.5-5.1); Total Bilirubin 0.4 mg/dL (0.2-1.3); Total Protein 6.2 g/dL (6.3-8.2)
--- NOTE | 2017-08-29 08:18 | P.PN ---
Progress Note - Text HISTORY AND PHYSICAL : Chief complaint The patient came to the emergency room yesterday with complaints of fever, sore throat, chest pain History of present illness The patient is a 72-year-old gentleman who woke up yesterday morning with a sore throat. Through the day he developed increasing fevers and weakness. He did have a slight cough associated with this but no marked phlegm production. He did have an episode of some substernal chest discomfort that did not last long. He has had poor appetite but no vomiting. He denies any abdominal pain or diarrhea. No blood per rectum. Temperatures at home were greater than 100. Chills and weakness associated with this. Past medical history The patient does have history of coronary artery disease and has had previous coronary artery stenting. Hypertension History of spinal stenosis and neurogenic claudication for which she has had surgery. Cervical osteoarthritis Type 2 diabetes Gastroesophageal reflux History of colonic polyps. No definite history of myocardial infarction or stroke. Patient has had a lumbar surgery along with a cardiac stent placements and previous colonoscopies with the last being in 2014. Medications: No known ALLERGIES Home medications Metformin 1000 mg twice a day Glipizide 10 mg twice a day Amlodipine 10 mg daily Quinapril 40 mg daily Lyrica, 150 mg twice a day Omeprazole 20 mg daily [place] 10-325 one 4 times a day as needed for pain, this is for chronic pain control for back and cervical spine pain. Lipitor 40 mg daily Aspirin 81 mg daily Review of systems No unusual headache or visual disturbances. Other symptoms as in the history of present illness. No actual vomiting but decrease appetite. No change in bowel movements. No blood per rectum. No unusual edema. No focal weakness. Social history The patient is retired. He lives locally with his in [place]. The patient does not overly use alcohol. He is a former smoker. Family history Positive for diabetes with 2 brothers. Strong family history of heart disease with both parents and several siblings. Patient is awake in bed this morning. States his throat is still bothering him and he does not feel good. Temperature was 100.2 and is down to 99.9. Pulse of 92 with respirations 16 and blood pressure 116/68. He is 92% saturated on room air. Head and neck exam is unremarkable. Extraocular movements intact. Pupils equal and reactive to light. Throat show some erythema of the pharynx but no marked masses. There is some slight adenopathy in the neck which is tender. Neck overall is supple. Lungs are generally clear except diminished with few crpes at bilateral bases. Heart tones were regular without murmurs or rubs. Abdomen is mildly obese but soft and nontender without rebound guarding or masses detected. Extremities reveal no edema. No open sores or areas erythema consistent with cellulitis. Neurologically he is alert and oriented. Mildly fatigued. Cranial nerves intact. Moving all extremities without focal weakness. Laboratory White count is elevated at 13 with a hemoglobin 11.7. There is a left shift with neutrophils 11.2. INR is 1.1 Sodium is 134 with a potassium of 5.0. BUN of 21 with creatinine 1.1 given him a GFR of 66. Blood sugar was 146. This morning up to 202 Magnesium was 1.5. CK was 292 with CK-MB was normal. Troponins were less than 0.012. Albumin and lipase were normal. Other liver function tests normal. Urinalysis was clear. Group A strep negative EKG showed normal sinus rhythm without evidence of ischemic changes. Chest x-ray showed some diaphragmatic scarring at bases. Heart size normal. Computed tomography scan of the abdomen and pelvis though did revealed some infiltrate and atelectasis at the bases of the lungs. Otherwise CT was unremarkable. Computed tomography scan of the neck revealed cervical adenopathy. No masses. Impressions 1. Bilateral basilar pneumonia. Community acquired. Unspecified organism. Also associated with acute pharyngitis. Cervical adenopathy. Fever and chills and weakness. 2. Past medical history as stated above. Patient has elevated blood sugar likely related to underlying infection. Impressions and plans At this time even though her sugars mildly elevated he is not eating much and we will decrease his oral antihypertensives and diabetic medications pending further values. He has been initiated on antibiotics through the emergency room in the form of azithromycin and ceftriaxone. These will be continued pending further clinical response and results of above. Other home medications have been initiated except for his quinapril. Discussed with patient at bedside this morning and discussed with the nursing staff.
[2017-08-29] MEDS ORDERED: glipiZIDE 5 MG TAB PO STA (08:35)
[2017-08-29] MEDS: amLODIPine 10 MG TAB PO SCH (08:47)
[2017-08-29] MEDS: PANTOPRAZOLE 40 MG TABLET PO SCH (08:48)
[2017-08-29] MEDS: ATORVASTATIN 40 MG TAB PO SCH (08:48)
[2017-08-29] MEDS: ASPIRIN 81 MG PO SCH (08:48)
[2017-08-29] MEDS: PREGABALIN 75 MG CAP PO SCH ×2 (08:51→20:47)
[2017-08-29] MEDS: HYDROcodone/APAP 10-325MG 1 EACH TAB PO PRN ×2 (08:56→15:57)
[2017-08-29] MEDS ORDERED: metFORMIN 500 MG TAB PO SCH (09:00)
[2017-08-29 11:34] LABS: Glucose,Whole Blood 197 mg/dL (75-99)
[2017-08-29 16:33] LABS: Hemoglobin A1C 7.1 % (4.0-6.0)
[2017-08-29 17:06] LABS: Glucose,Whole Blood 187 mg/dL (75-99)
[2017-08-29] MEDS: glipiZIDE 5 MG TAB PO SCH (17:32)
[2017-08-29 20:48] LABS: Glucose,Whole Blood 227 mg/dL (75-99)
[2017-08-30 00:02] VITALS: RESP 18
[2017-08-30] MEDS: AZITHROMYCIN 500 MG in DEXTROSE 5% IN WATER 250 ML IVPB SCH ×2 (00:22)
[2017-08-30] MEDS: cefTRIAXone IN SWFI 1,000 MG/10 ML SYRINGE IVP SCH (01:20)
[2017-08-30] MEDS: SODIUM CHLORIDE 0.9% 1,000 ML IV SCH ×2 (04:40→17:18)
[2017-08-30 07:40] LABS: Glucose,Whole Blood 166 mg/dL (75-99)
[2017-08-30 08:07] LABS: Basophils % (A) 0 %; Eosinophils # (A) 0.1 k/uL (0-0.7); Eosinophils % (A) 1 %; HCT 37.1 % (39.0-53.0); HGB 11.8 gm/dL (13.0-17.5); Lymphocytes # (A) 1.3 k/uL (1.0-4.8); Lymphocytes % (A) 11 %; MCH 28.1 pg (25.0-35.0); MCHC 31.8 g/dL (31.0-37.0); MCV 88.4 fL (80.0-100.0); Mean Platelet Volume 6.7; Monocytes # (A) 0.7 k/uL (0-1.0); Monocytes % (A) 6 %; Neutrophils # (A) 9.2 k/uL (1.3-7.7); Neutrophils % (A) 79 %; Platelet Count 203 k/uL (150-450); RDW 14.7 % (11.5-15.5); WBC 11.7 k/uL (3.8-10.6)
[2017-08-30] MEDS: glipiZIDE 5 MG TAB PO SCH ×2 (08:19→17:19)
[2017-08-30] MEDS: PANTOPRAZOLE 40 MG TABLET PO SCH (08:19)
[2017-08-30] MEDS: ASPIRIN 81 MG PO SCH (08:19)
[2017-08-30] MEDS: PREGABALIN 75 MG CAP PO SCH ×2 (08:19→22:02)
[2017-08-30] MEDS: amLODIPine 10 MG TAB PO SCH (08:19)
[2017-08-30] MEDS: ATORVASTATIN 40 MG TAB PO SCH (08:19)
[2017-08-30 08:31] LABS: Anion Gap 14 mmol/L; Blood Urea Nitrogen 11 mg/dL (9-20); Calcium 8.8 mg/dL (8.4-10.2); Carbon Dioxide 21 mmol/L (22-30); Chloride 103 mmol/L (98-107); Glucose 163 mg/dL (74-99); Potassium 4.9 mmol/L (3.5-5.1); Sodium 138 mmol/L (137-145)
--- NOTE | 2017-08-30 11:30 | P.PN ---
Progress Note - Text The patient is a 72-year-old gentleman who presented with weakness, temperature , some central chest pain and sore throat. Found to have bibasilar pneumonia on chest x-rays. Patient has been treated for community acquired pneumonia with azithromycin and Rocephin. Patient has had some improvement. He is feeling less tired and worn out. Has almost been afebrile for the last 12-24 hours. He still has some trouble eating with the soreness in his throat but this is slowly improving. Vital signs this morning show a temperature 97.3 with a pulse of 82 and respirations 18. Blood pressure is 112/51 and he is 94% saturated on 2 L. Lung and heart examination is generally clear although a few crpes at bases. Heart tones were regular. Abdomen nontender. No edema. No neurological changes. Laboratory White count 11.7 with a hemoglobin 11.8 and a platelet count of 203. Slight increase in neutrophils at 9.2. CO2 content is 21 but other electrolytes were unremarkable. Blood sugar 163 this morning. Blood culture so far negative. Impression and plans At this point patient to increase activity and diet. Continue antibiotics at this time. Hopefully can consider discharge over the next 24-48 hours if he continues to be afebrile and shows continued clinical improvement.
[2017-08-30 11:33] LABS: Glucose,Whole Blood 188 mg/dL (75-99)
[2017-08-30] MEDS ORDERED: glipiZIDE 5 MG TAB PO STA (17:21)
[2017-08-30 17:29] LABS: Glucose,Whole Blood 210 mg/dL (75-99)
[2017-08-30] MEDS: metFORMIN 500 MG TAB PO SCH (18:35)
[2017-08-30 20:45] LABS: Glucose,Whole Blood 258 mg/dL (75-99)
[2017-08-31] MEDS: cefTRIAXone IN SWFI 1,000 MG/10 ML SYRINGE IVP SCH (01:12)
[2017-08-31] MEDS: AZITHROMYCIN 500 MG in DEXTROSE 5% IN WATER 250 ML IVPB SCH ×2 (01:13)
[2017-08-31] MEDS: SODIUM CHLORIDE 0.9% 1,000 ML IV SCH (05:02)
[2017-08-31 06:12] VITALS: BP 100/49; PULSE 67; TEMP 97.8
[2017-08-31 07:21] LABS: Glucose,Whole Blood 158 mg/dL (75-99)
[2017-08-31] MEDS ORDERED: glipiZIDE 5 MG TAB PO SCH (07:30)
[2017-08-31] MEDS: amLODIPine 10 MG TAB PO SCH (07:57)
[2017-08-31] MEDS: ASPIRIN 81 MG PO SCH (07:57)
[2017-08-31] MEDS: metFORMIN 500 MG TAB PO SCH (07:57)
[2017-08-31] MEDS: ATORVASTATIN 40 MG TAB PO SCH (07:57)
[2017-08-31] MEDS: PREGABALIN 75 MG CAP PO SCH (07:57)
[2017-08-31] MEDS: PANTOPRAZOLE 40 MG TABLET PO SCH (07:57)
--- NOTE | 2017-08-31 09:33 | P.DS ---
Providers Date of admission: 08/29/17 00:48 Attending physician: Rufus Monreal Primary care physician: Rufus Monreal The patient is a 72-year-old gentleman who presented with the throat soreness with some slight cough the generalized weakness and fevers at home and in the emergency room. Subsequent workup revealed a bilateral basilar pneumonias. The organism with following workup was unspecified as cultures were negative. Community acquired. Initial laboratory values did reveal elevated white count of 13 with a hemoglobin 11.7. There was a left shift. Sodium was 134 with a potassium 5.0. BUN of 21 with creatinine 1.1. GFR was 66. Blood sugar was 146 but went up to 202. Troponin was less than 0.012. Mild elevation of CKs up to 292 with normal CK-MBs. Liver function tests were normal. EKG showed normal sinus rhythm. No ischemic changes. He did have a computed tomography scan of the abdomen and pelvis which actually demonstrated the basilar infiltrates but otherwise was unremarkable. Patient received IV resuscitation and IV antibiotics in the form of ceftriaxone and azithromycin. Patient gradually improved with gradual decrease in his temperatures. Increase in his overall endurance and strength. Increase in appetite and decrease and his sore throat. At this time anticipating patient to be discharged home today. Discharge medications: Azithromycin 500 mg 1 daily for 5 days will be sent to his [facility] pharmacy through my office EMR. Patient will continue his home medications which include Glipizide 10 mg twice a day Amlodipine 10 mg daily Quinapril 40 mg daily Lyrica 150 mg twice a day Omeprazole 20 mg daily [place] 10-325 4 times a day as needed for his chronic back and cervical spine pain Lipitor 40 mg daily Aspirin 81 mg daily Patient to follow-up in the office in 3-5 days. He will call if any concerns or problems. Discharge diagnoses Bibasilar community acquired pneumonia. Organism unspecified. Presenting with weakness, fever and chills. Coronary artery disease with previous coronary artery stenting Hypertension History of spinal stenosis and neurogenic claudication for which he has had previous surgery Also history of cervical osteoarthritis Type 2 diabetes Gastroesophageal reflux History of colonic polyps. Continue with his diabetic diet and activities as tolerated. Prognosis is overall good. Patient Condition at Discharge: Stable Plan - Discharge Summary New Discharge Prescriptions: No Action metFORMIN HCL 1,000 mg PO BID glipiZIDE [Glucotrol] 10 mg PO BID Quinapril HCl 40 mg PO DAILY amLODIPine BESYLATE [Norvasc] 10 mg PO DAILY Atorvastatin [Lipitor] 40 mg PO DAILY Pregabalin [Lyrica] 150 mg PO BID HYDROcodone/APAP 10-325MG [[place] 10-325] 1 tab PO QID PRN PRN Reason: Pain Aspirin EC [Ecotrin Low Dose] 81 mg PO DAILY Omeprazole 20 mg PO DAILY Discharge Medication List Quinapril HCl 40 mg PO DAILY 01/17/14 [History] glipiZIDE [Glucotrol] 10 mg PO BID 01/17/14 [History] metFORMIN HCL 1,000 mg PO BID 01/17/14 [History] amLODIPine BESYLATE [Norvasc] 10 mg PO DAILY 04/19/14 [History] Atorvastatin [Lipitor] 40 mg PO DAILY 08/08/14 [History] HYDROcodone/APAP 10-325MG [[place] 10-325] 1 tab PO QID PRN 06/21/16 [History] Pregabalin [Lyrica] 150 mg PO BID 06/21/16 [History] Aspirin EC [Ecotrin Low Dose] 81 mg PO DAILY 08/28/17 [History] Omeprazole 20 mg PO DAILY 08/28/17 [History] Follow up Appointment(s)/Referral(s): Rufus Monreal MD [Primary Care Provider] - 1 Week Patient Instructions/Handouts: Community Acquired Pneumonia (DC) Activity/Diet/Wound Care/Special Instructions: Cardiac, diabetic diet.
== END 2017-08-31 10:35 | disposition home or self-care (01) | DRG 195 ==
LOC: EC 19:16 → 4MS4W 08-29 00:48
PROVIDERS: ADMIT Internal Medicine; ATTEND Internal Medicine
DX: J18.9 Pneumonia, unspecified organism (principal); E11.9 Type 2 diabetes mellitus without complications; I10 Essential (primary) hypertension; J02.9 Acute pharyngitis, unspecified; I25.10 Atherosclerotic heart disease of native coronary artery without angina pectoris; K21.9 Gastro-esophageal reflux disease without esophagitis; G89.29 Other chronic pain; M47.812 Spondylosis without myelopathy or radiculopathy, cervical region; R59.0 Localized enlarged lymph nodes; Z79.82 Long term (current) use of aspirin; Z79.84 Long term (current) use of oral hypoglycemic drugs; Z79.899 Other long term (current) drug therapy; Z87.891 Personal history of nicotine dependence; Z98.1 Arthrodesis status; Z95.5 Presence of coronary angioplasty implant and graft; Z86.010 Personal history of colon polyps; Z83.3 Family history of diabetes mellitus; Z82.49 Family history of ischemic heart disease and other diseases of the circulatory system
CPT/HCPCS: 36415; 70491; 71046; 74177; 80048; 80053; 81003; 82550; 82553; 83036; 83605; 83690; 83735; 84484; 85025; 85610; 85730; 87040; 87081; 87430; 87502; 93005; 94760; 96361; 96374; 96375; 99285

== ENCOUNTER → 2017-09-16 | Outpatient (CLI) | payer MEDICARE ==
--- NOTE | 2017-09-16 09:31 | MR ---
EXAMINATION TYPE: MR cervical spine wo con DATE OF EXAM: 09/16/2017 7:58 AM COMPARISON: NONE HISTORY: Spondylosis with radiculopathy, cervical Multiplanar MultiSpin echo imaging of the cervical spine was performed. Comparison: none C2-C3: No evidence for degenerative disc disease. No disc bulge/herniation or protrusion. No Canal stenosis. Foramina are patent bilaterally. C3-C4: No evidence for degenerative disc disease. No disc bulge/herniation or protrusion. No Canal stenosis. Foramina are patent bilaterally. C4-C5: Postoperative changes of fusion. Anterior fixation plate is in place. No evidence for recurren t or residual disease. C5-C6: Severe degenerative disc disease. Posterior disc bulge with partial encapsulating spur resulti ng in moderate central stenosis. Bilateral foraminal encroachment noted secondary to degenerative flora nge of the cervical apophyseal joints. C6-C7: Severe degenerative disc disease. Posterior disc bulge with partial encapsulating spur resulti ng in moderate central stenosis. Bilateral foraminal encroachment noted secondary to degenerative flora nge of the cervical apophyseal joints. C7-T1: 2 mm anterolisthesis C7 on T1. No evidence for degenerative disc disease. No disc bulge/herni ation or protrusion. No Canal stenosis. Foramina are patent bilaterally. Cervical segments are intact. There is normal alignment. Cervical spinal cord is of normal signal. Craniovertebral junction relationships are within normal limits. IMPRESSION: 1. Moderate central stenosis with degenerative disc disease at C5-6 and C6-7. 2. Postoperative change as noted at C4-5.
== END | disposition home or self-care (01) ==
LOC: RADMRIMAIN 06:58
DX: M48.02 Spinal stenosis, cervical region (principal); M50.122 Cervical disc disorder at C5-C6 level with radiculopathy; Z98.890 Other specified postprocedural states
CPT/HCPCS: 72141

== ENCOUNTER 2017-10-15 22:20 | Inpatient (IN) | payer MEDICARE ==
[2017-10-15] MEDS ORDERED: SODIUM CHLORIDE 0.9% 1,000 ML IV STA (22:43)
--- NOTE | 2017-10-15 23:10 | ED ---
General Adult HPI - General Chief complaint: Chest Pain Stated complaint: chest/shoulder/arm pain Time Seen by Provider: 10/15/17 22:27 Source: patient, RN notes reviewed, old records reviewed Mode of arrival: wheelchair Limitations: no limitations - History of Present Illness Initial comments: This is a 72-year-old male the ER for evasive chest pain right-sided chest pain substernal chest pain rating to right arm. Patient has history of heart disease history of PA. Patient was playing cards tonight when symptoms began. Troponins and 2. Patient is maybe a 2 hours of symptoms. Significant shortness of breath or diaphoresis. He states that he does not normal prior heart attacks felt like but is concerned that he is having PA. - Related Data Home Medications Medication Instructions Recorded Confirmed Quinapril HCl 40 mg PO DAILY 01/17/14 10/16/17 glipiZIDE [Glucotrol] 20 mg PO BID 01/17/14 10/16/17 amLODIPine BESYLATE [Norvasc] 10 mg PO DAILY 04/19/14 10/16/17 Atorvastatin [Lipitor] 40 mg PO DAILY 08/08/14 10/16/17 Pregabalin [Lyrica] 150 mg PO BID 06/21/16 10/16/17 Aspirin EC [Ecotrin Low Dose] 81 mg PO DAILY 08/28/17 10/16/17 Omeprazole 20 mg PO DAILY 08/28/17 10/16/17 Cholecalciferol [Vitamin D3] 5,000 unit PO DAILY 10/16/17 10/16/17 HYDROcodone/APAP 7.5-325MG [Wood 1 tab PO QID PRN 10/16/17 10/16/17 7.5-325] Insulin Glargine [Lantus] 10 unit SQ HS 10/16/17 10/16/17 Previous Rx's Medication Instructions Recorded Isosorbide Mononitrate [Ismo] 10 mg PO BID #60 tab 10/17/17 Aspirin 81 mg PO DAILY@0700 chew 10/18/17 metFORMIN HCL 1,000 mg PO BID #0 10/18/17 Allergies Allergy/AdvReac Type Severity Reaction Status Date / Time No Known Allergies Allergy Verified 10/15/17 22:29 Review of Systems ROS Statement: Those systems with pertinent positive or pertinent negative responses have been documented in the HPI. ROS Other: All systems not noted in ROS Statement are negative. Past Medical History Past Medical History: Coronary Artery Disease (CAD), Diabetes Mellitus, GERD/ Reflux, Hypertension History of Any Multi-Drug Resistant Organisms: None Reported Past Surgical History: Back Surgery, Heart Catheterization With Stent, Orthopedic Surgery Additional Past Surgical History / Comment(s): neck fusion, back fusion, carpel tunnel Past Anesthesia/Blood Transfusion Reactions: No Reported Reaction Date of Last Stent Placement:: 2011 Past Psychological History: No Psychological Hx Reported Smoking Status: Never smoker Past Alcohol Use History: None Reported Past Drug Use History: None Reported General Exam Limitations: no limitations General appearance: alert, in no apparent distress Head exam: Present: atraumatic, normocephalic, normal inspection Eye exam: Present: normal appearance, PERRL, EOMI. Absent: scleral icterus, conjunctival injection, periorbital swelling ENT exam: Present: normal exam, mucous membranes moist Neck exam: Present: normal inspection. Absent: tenderness, meningismus, lymphadenopathy Respiratory exam: Present: normal lung sounds bilaterally. Absent: respiratory distress, wheezes, rales, rhonchi, stridor Cardiovascular Exam: Present: regular rate, normal rhythm, normal heart sounds. Absent: systolic murmur, diastolic murmur, rubs, gallop, clicks GI/Abdominal exam: Present: soft, normal bowel sounds. Absent: distended, tenderness, guarding, rebound, rigid Extremities exam: Present: normal inspection, full ROM, normal capillary refill. Absent: tenderness, pedal edema, joint swelling, calf tenderness Back exam: Present: normal inspection Neurological exam: Present: alert, oriented X3, CN II-XII intact Psychiatric exam: Present: normal affect, normal mood Skin exam: Present: warm, dry, intact, normal color. Absent: rash Course Vital Signs 10/15/17 10/16/17 22:25 00:41 Temperature 97.3 F L 97.9 F Pulse Rate 69 71 Respiratory 16 18 Rate Blood Pressure 168/78 149/70 O2 Sat by Pulse 98 96 Oximetry EKG Findings - EKG Comments: EKG Findings:: EKG shows sinus rhythm rate of 69, MN 164, QRS 70, QTc 4:15 Medical Decision Making - Medical Decision Making 69 female the ER with history of heart disease coming in for chest pain. Patient be admitted for cardiac observation - Lab Data Result diagrams: 10/17/17 06:27 10/15/17 22:35 Lab Results 10/15/17 10/15/17 10/15/17 Range/Units 22:35 22:35 22:35 WBC 6.8 (3.8-10.6) k/uL RBC 4.46 (4.30-5.90) m/uL Hgb 13.2 (13.0-17.5) gm/dL Hct 38.5 L (39.0-53.0) % MCV 86.3 (80.0-100.0) fL MCH 29.5 (25.0-35.0) pg MCHC 34.2 (31.0-37.0) g/dL RDW 15.0 (11.5-15.5) % Plt Count 248 (150-450) k/uL Neutrophils % 56 % Lymphocytes % 28 % Monocytes % 8 % Eosinophils % 4 % Basophils % 1 % Neutrophils # 3.9 (1.3-7.7) k/uL Lymphocytes # 1.9 (1.0-4.8) k/uL Monocytes # 0.6 (0-1.0) k/uL Eosinophils # 0.3 (0-0.7) k/uL Basophils # 0.0 (0-0.2) k/uL PT (9.0-12.0) sec INR (<1.2) APTT (22.0-30.0) sec D-Dimer (<0.60) mg/L FEU Sodium 139 (137-145) mmol/L Potassium 5.4 H (3.5-5.1) mmol/L Chloride 104 (98-107) mmol/L Carbon Dioxide 22 (22-30) mmol/L Anion Gap 13 mmol/L BUN 29 H (9-20) mg/dL Creatinine 1.00 (0.66-1.25) mg/dL Est GFR (CKD-EPI)AfAm 86 (>60 ml/min/1.73 sqM) Est GFR (CKD-EPI)NonAf 74 (>60 ml/min/1.73 sqM) Glucose 217 H (74-99) mg/dL POC Glucose (mg/dL) (75-99) mg/dL POC Glu Melter Loader ID Calcium 9.8 (8.4-10.2) mg/dL Magnesium 1.8 (1.6-2.3) mg/dL Total Bilirubin 0.2 (0.2-1.3) mg/dL AST 25 (17-59) U/L ALT 40 (21-72) U/L Alkaline Phosphatase 73 (38-126) U/L Total Creatine Kinase 183 H (55-170) U/L CK-MB (CK-2) 1.8 (0.0-2.4) ng/mL CK-MB (CK-2) Rel Index 1.0 Troponin I <0.012 (0.000-0.034) ng/mL Total Protein 7.9 (6.3-8.2) g/dL Albumin 4.7 (3.5-5.0) g/dL Triglycerides (<150) mg/dL Cholesterol (<200) mg/dL LDL Cholesterol, Calc (0-99) mg/dL HDL Cholesterol (40-60) mg/dL Lipase 109 (23-300) U/L 10/15/17 10/16/17 10/16/17 Range/Units 22:35 04:47 04:47 WBC (3.8-10.6) k/uL RBC (4.30-5.90) m/uL Hgb (13.0-17.5) gm/dL Hct (39.0-53.0) % MCV (80.0-100.0) fL MCH (25.0-35.0) pg MCHC (31.0-37.0) g/dL RDW (11.5-15.5) % Plt Count 249 (150-450) k/uL Neutrophils % % Lymphocytes % % Monocytes % % Eosinophils % % Basophils % % Neutrophils # (1.3-7.7) k/uL Lymphocytes # (1.0-4.8) k/uL Monocytes # (0-1.0) k/uL Eosinophils # (0-0.7) k/uL Basophils # (0-0.2) k/uL PT 10.0 (9.0-12.0) sec INR 1.0 (<1.2) APTT 24.0 (22.0-30.0) sec D-Dimer 0.67 H (<0.60) mg/L FEU Sodium (137-145) mmol/L Potassium (3.5-5.1) mmol/L Chloride (98-107) mmol/L Carbon Dioxide (22-30) mmol/L Anion Gap mmol/L BUN (9-20) mg/dL Creatinine (0.66-1.25) mg/dL Est GFR (CKD-EPI)AfAm (>60 ml/min/1.73 sqM) Est GFR (CKD-EPI)NonAf (>60 ml/min/1.73 sqM) Glucose (74-99) mg/dL POC Glucose (mg/dL) (75-99) mg/dL POC Glu Melter Loader ID Calcium (8.4-10.2) mg/dL Magnesium (1.6-2.3) mg/dL Total Bilirubin (0.2-1.3) mg/dL AST (17-59) U/L ALT (21-72) U/L Alkaline Phosphatase (38-126) U/L Total Creatine Kinase 138 (55-170) U/L CK-MB (CK-2) 1.5 (0.0-2.4) ng/mL CK-MB (CK-2) Rel Index 1.1 Troponin I <0.012 (0.000-0.034) ng/mL Total Protein (6.3-8.2) g/dL Albumin (3.5-5.0) g/dL Triglycerides (<150) mg/dL Cholesterol (<200) mg/dL LDL Cholesterol, Calc (0-99) mg/dL HDL Cholesterol (40-60) mg/dL Lipase (23-300) U/L 10/16/17 10/16/17 10/16/17 Range/Units 04:47 06:33 07:10 WBC (3.8-10.6) k/uL RBC (4.30-5.90) m/uL Hgb (13.0-17.5) gm/dL Hct (39.0-53.0) % MCV (80.0-100.0) fL MCH (25.0-35.0) pg MCHC (31.0-37.0) g/dL RDW (11.5-15.5) % Plt Count (150-450) k/uL Neutrophils % % Lymphocytes % % Monocytes % % Eosinophils % % Basophils % % Neutrophils # (1.3-7.7) k/uL Lymphocytes # (1.0-4.8) k/uL Monocytes # (0-1.0) k/uL Eosinophils # (0-0.7) k/uL Basophils # (0-0.2) k/uL PT (9.0-12.0) sec INR (<1.2) APTT 42.0 H (22.0-30.0) sec D-Dimer (<0.60) mg/L FEU Sodium (137-145) mmol/L Potassium (3.5-5.1) mmol/L Chloride (98-107) mmol/L Carbon Dioxide (22-30) mmol/L Anion Gap mmol/L BUN (9-20) mg/dL Creatinine (0.66-1.25) mg/dL Est GFR (CKD-EPI)AfAm (>60 ml/min/1.73 sqM) Est GFR (CKD-EPI)NonAf (>60 ml/min/1.73 sqM) Glucose (74-99) mg/dL POC Glucose (mg/dL) 149 H (75-99) mg/dL POC Glu Melter Loader ID Cronkright, Sabina Calcium (8.4-10.2) mg/dL Magnesium (1.6-2.3) mg/dL Total Bilirubin (0.2-1.3) mg/dL AST (17-59) U/L ALT (21-72) U/L Alkaline Phosphatase (38-126) U/L Total Creatine Kinase (55-170) U/L CK-MB (CK-2) (0.0-2.4) ng/mL CK-MB (CK-2) Rel Index Troponin I (0.000-0.034) ng/mL Total Protein (6.3-8.2) g/dL Albumin (3.5-5.0) g/dL Triglycerides 243 H (<150) mg/dL Cholesterol 155 (<200) mg/dL LDL Cholesterol, Calc 63 (0-99) mg/dL HDL Cholesterol 43 (40-60) mg/dL Lipase (23-300) U/L 10/16/17 10/16/17 10/16/17 Range/Units 10:40 12:30 17:27 WBC (3.8-10.6) k/uL RBC (4.30-5.90) m/uL Hgb (13.0-17.5) gm/dL Hct (39.0-53.0) % MCV (80.0-100.0) fL MCH (25.0-35.0) pg MCHC (31.0-37.0) g/dL RDW (11.5-15.5) % Plt Count (150-450) k/uL Neutrophils % % Lymphocytes % % Monocytes % % Eosinophils % % Basophils % % Neutrophils # (1.3-7.7) k/uL Lymphocytes # (1.0-4.8) k/uL Monocytes # (0-1.0) k/uL Eosinophils # (0-0.7) k/uL Basophils # (0-0.2) k/uL PT (9.0-12.0) sec INR (<1.2) APTT (22.0-30.0) sec D-Dimer (<0.60) mg/L FEU Sodium (137-145) mmol/L Potassium (3.5-5.1) mmol/L Chloride (98-107) mmol/L Carbon Dioxide (22-30) mmol/L Anion Gap mmol/L BUN (9-20) mg/dL Creatinine (0.66-1.25) mg/dL Est GFR (CKD-EPI)AfAm (>60 ml/min/1.73 sqM) Est GFR (CKD-EPI)NonAf (>60 ml/min/1.73 sqM) Glucose (74-99) mg/dL POC Glucose (mg/dL) 148 H 148 H (75-99) mg/dL POC Glu Melter Loader ID Cronkright, Sabina Cronkright, Sabina Calcium (8.4-10.2) mg/dL Magnesium (1.6-2.3) mg/dL Total Bilirubin (0.2-1.3) mg/dL AST (17-59) U/L ALT (21-72) U/L Alkaline Phosphatase (38-126) U/L Total Creatine Kinase 111 (55-170) U/L CK-MB (CK-2) 1.2 (0.0-2.4) ng/mL CK-MB (CK-2) Rel Index 1.1 Troponin I <0.012 (0.000-0.034) ng/mL Total Protein (6.3-8.2) g/dL Albumin (3.5-5.0) g/dL Triglycerides (<150) mg/dL Cholesterol (<200) mg/dL LDL Cholesterol, Calc (0-99) mg/dL HDL Cholesterol (40-60) mg/dL Lipase (23-300) U/L 10/16/17 10/17/17 10/17/17 Range/Units 20:20 06:27 06:56 WBC (3.8-10.6) k/uL RBC (4.30-5.90) m/uL Hgb (13.0-17.5) gm/dL Hct (39.0-53.0) % MCV (80.0-100.0) fL MCH (25.0-35.0) pg MCHC (31.0-37.0) g/dL RDW (11.5-15.5) % Plt Count 251 (150-450) k/uL Neutrophils % % Lymphocytes % % Monocytes % % Eosinophils % % Basophils % % Neutrophils # (1.3-7.7) k/uL Lymphocytes # (1.0-4.8) k/uL Monocytes # (0-1.0) k/uL Eosinophils # (0-0.7) k/uL Basophils # (0-0.2) k/uL PT (9.0-12.0) sec INR (<1.2) APTT (22.0-30.0) sec D-Dimer (<0.60) mg/L FEU Sodium (137-145) mmol/L Potassium (3.5-5.1) mmol/L Chloride (98-107) mmol/L Carbon Dioxide (22-30) mmol/L Anion Gap mmol/L BUN (9-20) mg/dL Creatinine (0.66-1.25) mg/dL Est GFR (CKD-EPI)AfAm (>60 ml/min/1.73 sqM) Est GFR (CKD-EPI)NonAf (>60 ml/min/1.73 sqM) Glucose (74-99) mg/dL POC Glucose (mg/dL) 195 H 150 H (75-99) mg/dL POC Glu Melter Loader ID Paul, Emilia Abernathy, Breana Calcium (8.4-10.2) mg/dL Magnesium (1.6-2.3) mg/dL Total Bilirubin (0.2-1.3) mg/dL AST (17-59) U/L ALT (21-72) U/L Alkaline Phosphatase (38-126) U/L Total Creatine Kinase (55-170) U/L CK-MB (CK-2) (0.0-2.4) ng/mL CK-MB (CK-2) Rel Index Troponin I (0.000-0.034) ng/mL Total Protein (6.3-8.2) g/dL Albumin (3.5-5.0) g/dL Triglycerides (<150) mg/dL Cholesterol (<200) mg/dL LDL Cholesterol, Calc (0-99) mg/dL HDL Cholesterol (40-60) mg/dL Lipase (23-300) U/L / Range/Units 13:09 WBC (3.8-10.6) k/uL RBC (4.30-5.90) m/uL Hgb (13.0-17.5) gm/dL Hct (39.0-53.0) % MCV (80.0-100.0) fL MCH (25.0-35.0) pg MCHC (31.0-37.0) g/dL RDW (11.5-15.5) % Plt Count (150-450) k/uL Neutrophils % % Lymphocytes % % Monocytes % % Eosinophils % % Basophils % % Neutrophils # (1.3-7.7) k/uL Lymphocytes # (1.0-4.8) k/uL Monocytes # (0-1.0) k/uL Eosinophils # (0-0.7) k/uL Basophils # (0-0.2) k/uL PT (9.0-12.0) sec INR (<1.2) APTT (22.0-30.0) sec D-Dimer (<0.60) mg/L FEU Sodium (137-145) mmol/L Potassium (3.5-5.1) mmol/L Chloride (98-107) mmol/L Carbon Dioxide (22-30) mmol/L Anion Gap mmol/L BUN (9-20) mg/dL Creatinine (0.66-1.25) mg/dL Est GFR (CKD-EPI)AfAm (>60 ml/min/1.73 sqM) Est GFR (CKD-EPI)NonAf (>60 ml/min/1.73 sqM) Glucose (74-99) mg/dL POC Glucose (mg/dL) 178 H (75-99) mg/dL POC Glu Melter Loader ID Mikala Crowe Calcium (8.4-10.2) mg/dL Magnesium (1.6-2.3) mg/dL Total Bilirubin (0.2-1.3) mg/dL AST (17-59) U/L ALT (21-72) U/L Alkaline Phosphatase (38-126) U/L Total Creatine Kinase (55-170) U/L CK-MB (CK-2) (0.0-2.4) ng/mL CK-MB (CK-2) Rel Index Troponin I (0.000-0.034) ng/mL Total Protein (6.3-8.2) g/dL Albumin (3.5-5.0) g/dL Triglycerides (<150) mg/dL Cholesterol (<200) mg/dL LDL Cholesterol, Calc (0-99) mg/dL HDL Cholesterol (40-60) mg/dL Lipase (23-300) U/L - Radiology Data Radiology results: report reviewed (CTA chest negative for acute disease), image reviewed Critical Care Time Critical Care Time: Yes Total Critical Care Time: 31 Disposition Clinical Impression: Chest pain Disposition: ADMITTED IP TO THIS HOSP Condition: Undetermined Is patient prescribed a controlled substance at d/c from ED?: No
[2017-10-15 23:11] LABS: Basophils % (A) 1 %; Eosinophils # (A) 0.3 k/uL (0-0.7); Eosinophils % (A) 4 %; HCT 38.5 % (39.0-53.0); HGB 13.2 gm/dL (13.0-17.5); Lymphocytes # (A) 1.9 k/uL (1.0-4.8); Lymphocytes % (A) 28 %; MCH 29.5 pg (25.0-35.0); MCHC 34.2 g/dL (31.0-37.0); MCV 86.3 fL (80.0-100.0); Monocytes # (A) 0.6 k/uL (0-1.0); Monocytes % (A) 8 %; Neutrophils # (A) 3.9 k/uL (1.3-7.7); Neutrophils % (A) 56 %; Platelet Count 248 k/uL (150-450); RBC 4.46 m/uL (4.30-5.90); WBC 6.8 k/uL (3.8-10.6)
[2017-10-15 23:25] LABS: Albumin 4.7 g/dL (3.5-5.0); Calcium 9.8 mg/dL (8.4-10.2); Magnesium 1.8 mg/dL (1.6-2.3); Potassium 5.4 mmol/L (3.5-5.1); Total Bilirubin 0.2 mg/dL (0.2-1.3); Total Protein 7.9 g/dL (6.3-8.2)
[2017-10-15 23:29] LABS: Creatine Kinase 183 U/L (55-170)
[2017-10-15 23:32] LABS: D-Dimer 0.67 mg/L FEU (<0.60)
[2017-10-15 23:40] LABS: Creatine Kinase MB 1.8 ng/mL (0.0-2.4); Troponin I <0.012 ng/mL (0.000-0.034)
[2017-10-15] MEDS ORDERED: HEPARIN SOD,PORK IN 0.45% NACL 25,000 UNIT in 0.45% NACL 1 500ML.BAG IV SCH (23:45)
[2017-10-15] MEDS ORDERED: NITROGLYCERIN SL TABS 0.4 MG TAB SUBLINGUAL PRN (23:50)
[2017-10-15] MEDS ORDERED: HEPARIN SODIUM,PORCINE 5,000 UNIT/ML 1 ML VIAL IV PRN (23:50)
[2017-10-15] MEDS ORDERED: ASPIRIN 81 MG PO STA (23:50)
[2017-10-15] MEDS ORDERED: HEPARIN SODIUM,PORCINE 5,000 UNIT/ML 1 ML VIAL IV ONE (23:50)
--- NOTE | 2017-10-16 00:02 | CT ---
EXAMINATION TYPE: CT angio chest DATE OF EXAM: 10/15/2017 11:57 PM COMPARISON: None HISTORY: pain CT DLP: 380.70 mGycm Automated exposure control for dose reduction was used. CONTRAST: CTA scan of the thorax is performed with IV Contrast, patient injected with 80 mL of Isovue 370, pulm onary embolism protocol. There are 3-D post processed images.. FINDINGS: There is coarse interstitial density in the mid and lower lung rolon. There is no evidence of a pul monary mass. There is no pericardial effusion. There is no pleural effusion. I see no filling defects in the pulmonary arteries. There are large central pulmonary arteries. There is no evidence of thora cic aortic aneurysm or dissection. There is a few mediastinal paratracheal lymph nodes that measure u p to 1 cm. There are no hilar masses. IMPRESSION: NO EVIDENCE OF PULMONARY EMBOLISM. LARGE PULMONARY ARTERIES SUGGESTIVE OF PULMONARY HYPERTENSION. PUL MONARY FIBROTIC CHANGES.
[2017-10-16 01:54] VITALS: BMI 26.6
[2017-10-16 04:57] LABS: Mean Platelet Volume 7.3; Platelet Count 249 k/uL (150-450)
[2017-10-16 05:32] LABS: Creatine Kinase 138 U/L (55-170)
[2017-10-16 05:33] LABS: Cholesterol 155 mg/dL (<200); HDL Cholesterol 43 mg/dL (40-60); LDL Cholesterol,Calculated 63 mg/dL (0-99); Triglycerides 243 mg/dL (<150)
[2017-10-16 05:45] LABS: Creatine Kinase MB 1.5 ng/mL (0.0-2.4); Troponin I <0.012 ng/mL (0.000-0.034)
[2017-10-16 06:35] LABS: Glucose,Whole Blood 149 mg/dL (75-99)
[2017-10-16] MEDS ORDERED: HYDROcodone/APAP 10-325MG 1 EACH TAB PO PRN (07:50)
--- NOTE | 2017-10-16 08:14 | P.HPIM ---
History of Present Illness Chief complaint Chest and neck and left arm discomfort. History of present illness The patient is a 72-year-old gentleman who has a history of coronary artery disease. The patient developed neck discomfort posteriorly that radiated towards the left upper arm and anterior chest apparently while he was driving home yesterday. He states he has been having some similar pain on and off for the past week. He states he has been under increased stress lately. Denies that the pain is exertional in nature. Yesterday the pain presented and continued for over an hour. The patient did not take any nitroglycerin as he states his nitroglycerin is many years old. pain did dissipate by the Time he came to the emergency room. Denied any nausea or vomiting or shortness of breath associated with this. He's had no cough or fever with this. Patient had been admitted a little over a month ago here with community-acquired pneumonia. Past medical history As mentioned patient has history of coronary artery disease and follows with [facility] here locally. The patient did have a heart catheterization 3 years ago which did show calcified coronary arteries with a moderate disease in the left circumflex and right coronary. At that time normal LV function and size. He does have history of cervical osteoarthritis and previous cervical fusion at C4-C5. History of hypertension History of spinal stenosis and neurogenic claudication for which he has had previous surgery Type 2 diabetes Gastroesophageal reflux disease History of colonic polyps. Hyperlipidemia Home medications No known ALLERGIES Home medications which need further confirmation. Metformin thousand milligrams twice a day Glipizide 10 mg twice a day Quinapril 40 mg daily Amlodipine 10 mg daily Lyrica 150 mg twice a day [place] 10-325 one 4 times a day for pain related to osteoarthritis Aspirin 81 mg daily omeprazole 20 mg daily Review of systems No unusual headache or visual disturbances. No nausea or vomiting. Chest pain as described above. No cough or fever associated with it. No urinary or bowel symptomatology. No unusual leg edema. No skin rashes. Family history Positive for coronary artery disease. Apparently 3 out of 4 siblings has had coronary artery disease. 2 of them at age 50 and 60. Social history No smoking or excessive alcohol. Patient is retired and lives locally with his . Physical examination Temperature 97.8 with a pulse of 61 and respirations 16. Blood pressure 138/63 and is 95% saturated on room air. Head and neck exam unremarkable. Extraocular movements intact. Neck is supple without carotid bruits or adenopathy or thyromegaly detected. Lungs were clear to auscultation. Heart tones were regular without murmurs or rubs appreciated. Abdomen is mildly obese but soft and nontender without organomegaly. Genital and rectal exams deferred. Extremities reveal no edema. Neurologically he is alert and oriented. Cranial nerves intact. No focal weakness. Patient has generally good range of motion of the shoulder on the left side. No focal weakness. Laboratory White count 6.8 with a hemoglobin 13.2 and a platelet count of 248. INR was 1.0. D-dimer was 0.67 which was slightly elevated. Potassium was slightly elevated at 5.4. BUN of 29 with creatinine 1.0 given him a GFR of 74. Blood sugar on presentation was elevated at 217. CPK was mildly elevated at 183 but indexes were normal. Repeat value of 138. Troponins less than 0.0122. LDL cholesterol was 63. EKG revealed a normal sinus rhythm without ischemic changes. CT angiogram of the chest revealed no evidence of pulmonary embolus. Suggestion of pulmonary hypertension with some fibrotic changes noted. Patient has had an MRI of the spine by his neurosurgeon approximately month ago. This did showed severe degenerative changes in the lower cervical vertebrae with disc disease. He has also had a previous cervical fusion. At C4 -C5. Impressions Neck and left arm pain. Repetitive over the last week or so and then more severe yesterday evening. Does have history of coronary artery disease and multiple risk factors but also has history of severe cervical neck disease and previous fusion surgery. Other risk factors and medical history as stated above. Plans At this time he has been started on heparin. We will renew his home medications but will hold his metformin. Current consult with cardiology has been placed and will wait for further recommendations. Past Medical History Past Medical History: Coronary Artery Disease (CAD), Diabetes Mellitus, GERD/ Reflux, Hypertension History of Any Multi-Drug Resistant Organisms: None Reported Past Surgical History: Back Surgery, Heart Catheterization With Stent, Orthopedic Surgery Additional Past Surgical History / Comment(s): neck fusion, back fusion, carpel tunnel Past Anesthesia/Blood Transfusion Reactions: No Reported Reaction Date of Last Stent Placement:: 2011 Past Psychological History: No Psychological Hx Reported Smoking Status: Never smoker Past Alcohol Use History: None Reported Past Drug Use History: None Reported Medications and Allergies Home Medications Medication Instructions Recorded Confirmed Type Quinapril HCl 40 mg PO DAILY 01/17/14 08/28/17 History glipiZIDE [Glucotrol] 10 mg PO BID 01/17/14 08/28/17 History metFORMIN HCL 1,000 mg PO BID 01/17/14 08/28/17 History amLODIPine BESYLATE [Norvasc] 10 mg PO DAILY 04/19/14 08/28/17 History Atorvastatin [Lipitor] 40 mg PO DAILY 08/08/14 08/28/17 History HYDROcodone/APAP 10-325MG [[place] 1 tab PO QID PRN 06/21/16 08/28/17 History 10-325] Pregabalin [Lyrica] 150 mg PO BID 06/21/16 08/28/17 History Aspirin EC [Ecotrin Low Dose] 81 mg PO DAILY 08/28/17 08/28/17 History Omeprazole 20 mg PO DAILY 08/28/17 08/28/17 History Azithromycin [Zithromax] 500 mg PO DAILY #5 tab 08/31/17 Rx Allergies Allergy/AdvReac Type Severity Reaction Status Date / Time No Known Allergies Allergy Verified 10/15/17 22:29 Physical Exam Vitals: Vital Signs Temp Pulse Pulse Resp BP BP Pulse Ox 10/16/17 04:00 58 L 16 10/16/17 03:46 97.6 F 66 16 119/70 96 10/16/17 02:01 65 16 10/16/17 01:45 98.2 F 67 16 154/74 95 10/16/17 00:41 97.9 F 71 18 149/70 96 10/15/17 22:25 97.3 F L 69 16 168/78 98 Intake and Output 10/15/17 10/16/17 10/16/17 22:59 06:59 14:59 Intake Total 200 Balance 200 Intake: Amount of Fluid Infused ( 200 ml) Other: Weight 81.647 kg 81.647 kg Results CBC & Chem 7: 10/16/17 04:47 10/15/17 22:35 Labs: Abnormal Lab Results - Last 24 Hours (Table) 10/15/17 10/15/17 10/15/17 Range/Units 22:35 22:35 22:35 Hct 38.5 L (39.0-53.0) % APTT (22.0-30.0) sec D-Dimer (<0.60) mg/L FEU Potassium 5.4 H (3.5-5.1) mmol/L BUN 29 H (9-20) mg/dL Glucose 217 H (74-99) mg/dL POC Glucose (mg/dL) (75-99) mg/dL Total Creatine Kinase 183 H (55-170) U/L Triglycerides (<150) mg/dL 10/15/17 10/16/17 10/16/17 Range/Units 22:35 04:47 06:33 Hct (39.0-53.0) % APTT (22.0-30.0) sec D-Dimer 0.67 H (<0.60) mg/L FEU Potassium (3.5-5.1) mmol/L BUN (9-20) mg/dL Glucose (74-99) mg/dL POC Glucose (mg/dL) 149 H (75-99) mg/dL Total Creatine Kinase (55-170) U/L Triglycerides 243 H (<150) mg/dL 10/16/17 Range/Units 07:10 Hct (39.0-53.0) % APTT 42.0 H (22.0-30.0) sec D-Dimer (<0.60) mg/L FEU Potassium (3.5-5.1) mmol/L BUN (9-20) mg/dL Glucose (74-99) mg/dL POC Glucose (mg/dL) (75-99) mg/dL Total Creatine Kinase (55-170) U/L Triglycerides (<150) mg/dL Thrombosis Risk Factor Assmnt - Choose All That Apply Each Risk Factor Represents 2 Points: Age 61-74 years Thrombosis Risk Factor Assessment Total Risk Factor Score: 2 Thrombosis Risk Factor Assessment Level: Low Risk
--- NOTE | 2017-10-16 08:55 | P.CRDCN ---
History of Present Illness Consult date: 10/16/17 Chief complaint: Chest discomfort History of present illness: This is a pleasant 72-year-old gentleman with a past medical history significant for CAD based on heart catheterization was performed in 2015 showing intermediate disease involving the left circumflex as well as RCA, diabetes, hypertension, dyslipidemia presented to the hospital complaining of right shoulder discomfort. The patient was in his usual state of health when he was sitting home playing cards when he started experiencing discomfort in the right shoulder. No chest pain or chest discomfort. No shortness of breath. No dizziness or lightheadedness or sweating. The EKG showed sinus rhythm without any ischemic ST or T-wave abnormalities. He underwent 3 sets of cardiac enzymes came in to be unremarkable. The chest x- ray did not show any acute abnormalities. The rest of the blood work came in to be unremarkable. The patient continues to be pain-free during his hospitalization. He does have an appointment to see Dr. Aranda as an outpatient tomorrow. I am getting the patient up and around and if he is pain free he might be able to be discharged home and follow-up with Dr. Aranda tomorrow. Beside that M going to start the patient on oral nitrate Past Medical History Past Medical History: Coronary Artery Disease (CAD), Diabetes Mellitus, GERD/ Reflux, Hypertension History of Any Multi-Drug Resistant Organisms: None Reported Past Surgical History: Back Surgery, Heart Catheterization With Stent, Orthopedic Surgery Additional Past Surgical History / Comment(s): neck fusion, back fusion, carpel tunnel Past Anesthesia/Blood Transfusion Reactions: No Reported Reaction Date of Last Stent Placement:: 2011 Past Psychological History: No Psychological Hx Reported Smoking Status: Never smoker Past Alcohol Use History: None Reported Past Drug Use History: None Reported Medications and Allergies Home Medications Medication Instructions Recorded Confirmed Type Quinapril HCl 40 mg PO DAILY 01/17/14 08/28/17 History glipiZIDE [Glucotrol] 10 mg PO BID 01/17/14 08/28/17 History metFORMIN HCL 1,000 mg PO BID 01/17/14 08/28/17 History amLODIPine BESYLATE [Norvasc] 10 mg PO DAILY 04/19/14 08/28/17 History Atorvastatin [Lipitor] 40 mg PO DAILY 08/08/14 08/28/17 History Pregabalin [Lyrica] 150 mg PO BID 06/21/16 08/28/17 History Aspirin EC [Ecotrin Low Dose] 81 mg PO DAILY 08/28/17 08/28/17 History Omeprazole 20 mg PO DAILY 08/28/17 08/28/17 History HYDROcodone/APAP 7.5-325MG [Bisbee 1 tab PO Q6H PRN 10/16/17 10/16/17 History 7.5-325] Insulin Glargine [Lantus] 0 unit SQ DAILY 10/16/17 10/16/17 History Allergies Allergy/AdvReac Type Severity Reaction Status Date / Time No Known Allergies Allergy Verified 10/15/17 22:29 Physical Exam Vitals: Vital Signs Temp Pulse Pulse Resp BP BP Pulse Ox 10/16/17 08:00 97.8 F 61 16 138/63 95 10/16/17 04:00 58 L 16 10/16/17 03:46 97.6 F 66 16 119/70 96 10/16/17 02:01 65 16 10/16/17 01:45 98.2 F 67 16 154/74 95 10/16/17 00:41 97.9 F 71 18 149/70 96 10/15/17 22:25 97.3 F L 69 16 168/78 98 Intake and Output 10/15/17 10/16/17 10/16/17 22:59 06:59 14:59 Intake Total 200 Balance 200 Intake: Amount of Fluid Infused ( 200 ml) Other: Weight 81.647 kg 81.647 kg - Constitutional General appearance: no acute distress - Respiratory Respiratory: bilateral: CTA - Cardiovascular Rhythm: regular Heart sounds: normal: S1, S2 Results 10/16/17 04:47 10/15/17 22:35 Cardiac Enzymes 10/15/17 10/15/17 10/16/17 Range/Units 22:35 22:35 04:47 AST 25 (17-59) U/L CK-MB (CK-2) 1.8 1.5 (0.0-2.4) ng/mL Troponin I <0.012 <0.012 (0.000-0.034) ng/mL Coagulation 10/15/17 10/16/17 Range/Units 22:35 07:10 PT 10.0 (9.0-12.0) sec APTT 24.0 42.0 H (22.0-30.0) sec Lipids 10/16/17 Range/Units 04:47 Triglycerides 243 H (<150) mg/dL Cholesterol 155 (<200) mg/dL HDL Cholesterol 43 (40-60) mg/dL CBC 10/15/17 10/16/17 Range/Units 22:35 04:47 WBC 6.8 (3.8-10.6) k/uL RBC 4.46 (4.30-5.90) m/uL Hgb 13.2 (13.0-17.5) gm/dL Hct 38.5 L (39.0-53.0) % Plt Count 248 249 (150-450) k/uL Comprehensive Metabolic Panel 10/15/17 Range/Units 22:35 Sodium 139 (137-145) mmol/L Potassium 5.4 H (3.5-5.1) mmol/L Chloride 104 (98-107) mmol/L Carbon Dioxide 22 (22-30) mmol/L BUN 29 H (9-20) mg/dL Creatinine 1.00 (0.66-1.25) mg/dL Glucose 217 H (74-99) mg/dL Calcium 9.8 (8.4-10.2) mg/dL AST 25 (17-59) U/L ALT 40 (21-72) U/L Alkaline Phosphatase 73 (38-126) U/L Total Protein 7.9 (6.3-8.2) g/dL Albumin 4.7 (3.5-5.0) g/dL Current Medications Generic Name Dose Route Start Last Admin Trade Name Freq PRN Reason Stop Dose Admin Hydrocodone Bitart/Acetaminophen 1 each 10/16/17 07:50 Bisbee 10 PO QID PRN MODERATE Pain Amlodipine Besylate 10 mg 10/16/17 09:00 Norvasc PO DAILY [facility] Aspirin 325 mg 10/16/17 09:00 Aspirin PO DAILY [facility] Atorvastatin Calcium 40 mg 10/16/17 09:00 Lipitor PO DAILY [facility] Glipizide 10 mg 10/16/17 09:00 Glucotrol PO BID [facility] Heparin Sodium (Porcine) 0 unit 10/15/17 23:50 Heparin IV Q6HR PRN Low PTT Protocol Heparin Sodium/Sodium Chloride 500 mls @ 19.59 mls/hr 10/15/17 23:45 00:46 25,000 unit/ Sodium Chloride IV 12 units/kg/hr .Q24H [place]DNEY 19.59 mls/hr Administration Protocol 12 UNITS/KG/HR Sodium Chloride 1,000 mls @ 50 mls/hr 10/16/17 08:00 Saline 0.9% IV .Q20H [place] Lisinopril 40 mg 10/16/17 09:00 Zestril PO DAILY [facility] Nitroglycerin 0.4 mg 10/15/17 23:50 Nitrostat SUBLINGUAL Q5M PRN Chest Pain Pantoprazole Sodium 40 mg 10/16/17 09:00 Protonix PO DAILY [facility] Pregabalin 150 mg 10/16/17 09:00 Lyrica PO BID [facility] Intake and Output 10/15/17 10/16/17 10/16/17 22:59 06:59 14:59 Intake Total 200 Balance 200 Intake: Amount of Fluid Infused ( 200 ml) Other: Weight 81.647 kg 81.647 kg 10/16/17 04:47 10/15/17 22:35 Assessment and Plan Assessment: Assessment #1 right shoulder discomfort #2 known intermediate CAD based on heart catheterization in 2016 #3 multiple risk factors including diabetes, hypertension, and dyslipidemia Plan #1 the patient was ruled out for acute coronary event #2 he did not have any chest pain or discomfort and his symptoms may only in the right shoulder #3 I am getting the patient up and around and if he is pain free he might be able to discharge home and follow-up with his services account manager. Thank you for allowing us participate in his care and we'll continue following up with him
[2017-10-16] MEDS ORDERED: NON-FORMULARY DRUG (Aspirin Ec 81 MG) PO SCH (09:00)
[2017-10-16] MEDS ORDERED: ASPIRIN 325 MG TAB PO SCH (09:00)
[2017-10-16] MEDS: PREGABALIN 75 MG CAP PO SCH ×2 (11:17→20:37)
[2017-10-16] MEDS: ISOSORBIDE MONONITRATE 20 MG TAB PO SCH ×2 (11:18→20:37)
[2017-10-16] MEDS: glipiZIDE 10 MG TAB PO SCH ×2 (11:18→20:37)
[2017-10-16] MEDS: LISINOPRIL 20 MG TAB PO SCH (11:18)
[2017-10-16] MEDS: PANTOPRAZOLE 40 MG TABLET PO SCH (11:18)
[2017-10-16] MEDS: amLODIPine 10 MG TAB PO SCH (11:18)
[2017-10-16] MEDS: SODIUM CHLORIDE 0.9% 1,000 ML IV SCH (11:18)
[2017-10-16] MEDS: ATORVASTATIN 40 MG TAB PO SCH (11:18)
[2017-10-16 12:00] LABS: Creatine Kinase 111 U/L (55-170)
[2017-10-16 12:08] LABS: Creatine Kinase MB 1.2 ng/mL (0.0-2.4); Troponin I <0.012 ng/mL (0.000-0.034)
[2017-10-16 12:33] LABS: Glucose,Whole Blood 148 mg/dL (75-99)
[2017-10-16 17:40] LABS: Glucose,Whole Blood 148 mg/dL (75-99)
[2017-10-16 20:24] LABS: Glucose,Whole Blood 195 mg/dL (75-99)
[2017-10-17 06:54] LABS: Mean Platelet Volume 6.7; Platelet Count 251 k/uL (150-450)
[2017-10-17 07:00] LABS: Glucose,Whole Blood 150 mg/dL (75-99)
[2017-10-17 07:42] VITALS: RESP 18
--- NOTE | 2017-10-17 08:09 | P.PN ---
Progress Note - Text The patient is a 72-year-old gentleman who has a history of coronary artery disease developed a new pain and presented to the emergency room. Initial EKG and enzymes were unremarkable. early yesterday afternoon though he developed further pain from the left neck down into the left arm. Through the evening and night though he has been pain-free. Vital signs temperature 97.5 with a pulse of 54 and respirations 18. Blood pressure 110/52 and he is 95% saturated on room air. Lung and heart exam is unremarkable. No unusual edema. No focal neurological changes. Laboratory: Platelet count 251 and blood sugar 150 this morning. Impressions and plans Recurrent neck and left arm pain in a patient with known coronary artery disease and risk factors. Discussed with cardiology this morning and they are anticipating stress testing for further evaluation. Further recommendations pending those results. Nitrates have been added per cardiology.
--- NOTE | 2017-10-17 11:13 | P.PN ---
Subjective Mr. Benjamin seen and examined sleeping comfortably in bed. He was started on Imdur yesterday and asked to increase his activity. He was not doing much increased activity per nursing staff but was getting up to the bathroom. He states he had another episode of chest pain yesterday afternoon that felt like a pressure in the left precordial region with radiation down the left arm. He denies shortness of breath, nausea, vomiting, dizziness or diaphoresis. Repeat EKG was unremarkable for acute changes. Blood pressure 110/52 heart rate 54 afebrile maintaining oxygen saturation on room air. Objective - Vital Signs Vital signs: Vital Signs Temp 97.5 F L 10/17/17 07:41 Pulse 54 L 10/17/17 08:00 Resp 18 10/17/17 08:00 BP 110/52 10/17/17 07:41 Pulse Ox 95 10/17/17 04:00 Intake & Output 10/16/17 10/17/17 10/17/17 18:59 06:59 18:59 Intake Total 1060 Balance 1060 Intake: Oral 1060 Other: Voiding Method Toilet Toilet # Voids 2 3 - Exam GENERAL: Well-appearing, well-nourished and in no acute distress. NECK: Supple without JVD or thyromegaly. LUNGS: Breath sounds clear to auscultation bilaterally. Respiration equal and unlabored. No wheezes, rales or rhonchi. HEART: Regular rate and rhythm without murmurs, rubs or gallops. S1 and S2 heard. EXTREMITIES: Normal range of motion, no edema. No clubbing or cyanosis. Peripheral pulses intact. - Labs CBC & Chem 7: 10/17/17 06:27 10/15/17 22:35 Labs: Abnormal Lab Results - Last 24 Hours (Table) 10/16/17 10/16/17 10/16/17 Range/Units 12:30 17:27 20:20 POC Glucose (mg/dL) 148 H 148 H 195 H (75-99) mg/dL 10/17/17 Range/Units 06:56 POC Glucose (mg/dL) 150 H (75-99) mg/dL Assessment and Plan Assessment: ASSESSMENT Chest pain, atypical. Acute coronary event has been ruled out. History of intermittent coronary artery disease per heart catheterization 2016 Hypertension Dyslipidemia Diabetes mellitus. PLAN Perform stress echocardiogram to assess for stress induced cardiac ischemia. Stress test normal he is stable from a cardiac perspective. Follow-up with Dr. Aranda upon discharge. Nurse Practitioner note has been reviewed, I agree with a documented findings and plan of care. Patient was seen and examined.
[2017-10-17] MEDS ORDERED: REGADENOSON 0.4 MG/5 ML SYRINGE IV ONE (11:20)
[2017-10-17] MEDS ORDERED: AMINOPHYLLINE 500 MG/20 ML VIAL IV PRN (11:20)
[2017-10-17 13:17] LABS: Glucose,Whole Blood 178 mg/dL (75-99)
[2017-10-17] MEDS: PREGABALIN 75 MG CAP PO SCH ×2 (13:26→20:56)
--- NOTE | 2017-10-17 13:26 | NM ---
"EXAMINATION TYPE: NM stress lexiscan cardiolite DATE OF EXAM: 10/17/2017 COMPARISON: NONE HISTORY: Chest pain TECHNIQUE: After the intravenous administration of 10.5 mCi Tc 99m Sestamibi - Cardiolite resting SP ECT images acquired 45 minutes post injection. The patient received 0.4mg Lexiscan, 25.7 mCi Tc 99m Sestamibi - Stress images obtained [address] injection FINDINGS: Review of stress and rest SPECT images demonstrates a very mild 3 segment reversible defect on stress images only in the lateral wall in the distribution of the left circumflex coronary artery. No fixed defect is seen. Gated analysis shows normal wall motion with an estimated left ventricular ejection fraction of 54 %. TID is calculated within normal limits at 1.04. IMPRESSION: 1. Mild 3 segment reversible defect in the distribution of the left circumflex coronary artery indica tive of ischemia. No fixed defect. 2. Estimated left ventricular ejection fraction of 54%. A Yellow level critical message alert has been initiated for Rufus Monreal MD via the [employer] | Critical Results System on 10/17/2017 1:23 PM. This message alert has been sent to Rufus thakur MD via the preferences provided by the clinician for the receipt of Radiology Critical Findi ngs. Message ID [id number]."
[2017-10-17] MEDS: amLODIPine 10 MG TAB PO SCH (13:27)
[2017-10-17] MEDS: ISOSORBIDE MONONITRATE 20 MG TAB PO SCH ×2 (13:27→20:55)
[2017-10-17] MEDS: glipiZIDE 10 MG TAB PO SCH ×2 (13:27→18:48)
[2017-10-17] MEDS: PANTOPRAZOLE 40 MG TABLET PO SCH (13:27)
[2017-10-17] MEDS: LISINOPRIL 20 MG TAB PO SCH (13:27)
[2017-10-17] MEDS: ATORVASTATIN 40 MG TAB PO SCH (13:27)
--- NOTE | 2017-10-17 13:55 | EST ---
EXERCISE STRESS AGE: 72 SEX: M HT: 69" WT: 180 PROTOCOL: Lexiscan Cardiolite Stress Test HEART RATE REST: 59 BLOOD PRESSURE REST: 137/76 MAXIMUM HEART RATE ACHIEVED: 78 MAXIMUM BLOOD PRESSURE: 150/70 85% MPHR: 125 100% MPHR: 147 INDICATIONS: Chest pain. CLINICAL INFORMATION: STRESS DATA: Pretesting physical examination showed heart rate of 59, pressure is 137/76 mmHg. Baseline EKG showed sinus mechanism; 0.4 mg of Lexiscan was given in seconds per protocol, the max heart rate was 78 beats per minute and maximum pressure was 150/70 mmHg. Clinically, the patient did not have any symptoms of chest pain or discomfort and the EKG did not show any significant ST or T-wave abnormalities concerning for ischemia. CONCLUSION: 1. Nondiagnostic electrocardiogram stress testing in response to Lexiscan. 2. Please follow up on the Cardiolite portion on a separate report from Radiology Department. MMODL / IJN: [id number] /
--- NOTE | 2017-10-17 14:11 | P.PN ---
Progress Note - Text Lexiscan stress test indicates a mild pre-segment reversible defect in the distribution of the left circumflex coronary artery indicative of ischemia no fixed defect noted. We recommend proceeding with cardiac catheterization. This has been discussed with his primary firmware manager Dr. Aranda. I have discussed the risks, benefits and alternative therapies for the above-mentioned procedure and for both sedation/analgesia as well as necessary blood product administration, if indicated, as they pertain to this patient. The patient and his have indicated understanding and acceptance of the risks and procedures discussed. The case has been boarded for tomorrow morning at 8 AM. Further recommendations to follow based upon clinical course.
[2017-10-17] MEDS ORDERED: ALPRAZolam 0.25 MG TAB PO PRN (14:12)
[2017-10-17] MEDS ORDERED: SODIUM CHLORIDE 0.9% 1,000 ML in EMPTY BAG 1 BAG IV ONE (14:12)
[2017-10-17] MEDS ORDERED: ALPRAZolam 0.5 MG TAB PO PRN (14:12)
[2017-10-17 17:31] LABS: Glucose,Whole Blood 240 mg/dL (75-99)
[2017-10-17 21:09] LABS: Glucose,Whole Blood 234 mg/dL (75-99)
[2017-10-18 06:03] VITALS: PULSE 59
[2017-10-18] MEDS: SODIUM CHLORIDE 0.9% 1,000 ML IV SCH ×2 (06:04→06:05)
[2017-10-18 06:29] LABS: Glucose,Whole Blood 170 mg/dL (75-99)
[2017-10-18] MEDS: amLODIPine 10 MG TAB PO SCH (06:50)
[2017-10-18] MEDS: LISINOPRIL 20 MG TAB PO SCH (06:50)
[2017-10-18] MEDS: ATORVASTATIN 40 MG TAB PO SCH (06:50)
[2017-10-18] MEDS: PREGABALIN 75 MG CAP PO SCH (06:50)
[2017-10-18] MEDS ORDERED: ASPIRIN 325 MG TAB PO SCH (07:00)
[2017-10-18] MEDS ORDERED: fentaNYL (PF) 50 MCG/ML 2 ML AMP ONE (07:46)
[2017-10-18] MEDS ORDERED: HEPARIN SODIUM 1,000 UN/ML (10ML VL) ONE (07:46)
[2017-10-18] MEDS ORDERED: VERAPAMIL 2.5 MG/ML 2 ML AMP ONE (07:46)
[2017-10-18] MEDS ORDERED: IV FLUID CONTINUATION 1,000 ML IV ONE (07:52)
[2017-10-18] MEDS ORDERED: fentaNYL (PF) 50 MCG/ML 2 ML AMP IV ONE (08:07)
[2017-10-18] MEDS ORDERED: LIDOCAINE 2% SYG (PF) 100 MG/5 ML MISCELLANE ONE (08:12)
[2017-10-18] MEDS: VERAPAMIL SYRINGE (5 MG/10 ML) INTRAARTER ONE ×2 (08:14→08:28)
[2017-10-18] MEDS ORDERED: HEPARIN SODIUM 1,000 UN/ML (10ML VL) IV ONE (08:24)
[2017-10-18] MEDS ORDERED: IOPAMIDOL-370 125ML BTL INJ ONE (08:27)
[2017-10-18] MEDS ORDERED: RX INFO: IV CONTRAST WAS GIVEN 1 EACH MISC MISCELLANE PRN (08:49)
[2017-10-18] MEDS ORDERED: SODIUM CHLORIDE 0.9% 1,000 ML IV SCH (09:00)
[2017-10-18] MEDS ORDERED: ASPIRIN 81 MG PO SCH (09:00)
--- NOTE | 2017-10-18 09:11 | CC ---
CARDIAC CATHETERIZATION REPORT Mr. Benjamin is a 72-year-old male with known history of hypertension, hyperlipidemia, diabetes mellitus, history of coronary artery disease who presented with symptoms of chest discomfort. He had no evidence of myocardial infarction by enzymatic evaluation, but he had a positive stress test in the lateral wall. In view of that, recommendation made regarding cardiac catheterization. The procedure as well as risks and complications were discussed with the patient who was in full understanding and agreement. DESCRIPTION OF PROCEDURE: Patient was brought to medical laboratory assistant in a fasting semi-sedated state after receiving fentanyl and Benadryl and achieving moderate conscious sedated state. Using Xylocaine anesthesia and Seldinger technique, a 6-Maldivian sheath was introduced in the right radial artery. Selective right and left coronary angiography was performed using 5- Maldivian 3 and half bend right and left Magi catheter. Multiple views of the coronary artery including hemiaxial views were obtained. Following that, 5-Maldivian tight pigtail catheter was introduced in the left ventricle and a 30 degree LLOYD view of the left ventricle was obtained. Following that, the catheter and sheaths were removed. Hemostasis was obtained with deployment of a TR band. There was no immediate complication. Patient is returned to his room in stable condition. Of note, the patient received 4500 units of intravenous heparin as well as intra-arterial verapamil. FINDINGS: FLUOROSCOPY: There was calcification involving the left right coronary artery as well as the left circumflex. CORONARY ANGIOGRAPHY: LEFT MAIN: This is a large-sized vessel bifurcating into left circumflex, left anterior descending artery. Left main coronary artery has a 10% plaque distally. LEFT ANTERIOR DESCENDING CORONARY ARTERY: This is a large-sized vessel reaching toward the apex with a wraparound the apex segment giving rise to 2 diagonal branches. The first one is large in caliber. The left anterior descending artery has mild intimal disease, 10-20 percent proximally. The rest of the vessel has no high-grade stenosis. LEFT CIRCUMFLEX: This is a nondominant vessel giving rise to 2 large obtuse marginal branches. The stented segment in the first obtuse marginal branch is patent. The left circumflex has a 40 to 50% plaque proximally and there is another plaque in the second obtuse marginal branch. There was no evidence of high-grade stenosis. RIGHT CORONARY ARTERY: This is a large dominant vessel. It is heavily calcified, heavily cultures proximally. The proximal segment at an acute bend has 50% plaque. There is another 50% plaque in the mid segment of the artery that is heavily calcified. The rest of the vessel has no high-grade stenosis. LEFT VENTRICULOGRAM: Left ventriculogram was performed in 30 degree LLOYD view and revealed normal left ventricular size and systolic function. Ejection fraction is 60%. There was no significant mitral regurgitation. HEMODYNAMICS: There was no gradient across the aortic valve. The left ventricle end-diastolic pressure was 10-12 mmHg. CONCLUSION: 1. Calcified coronary arteries. 2. Moderate disease involving the left circumflex and the right coronary artery with mild disease in the LAD. 3. Normal left ventricular size and systolic function. RECOMMENDATION: There is no progression of disease compared with the images obtained in 2015, I would recommend to continue medical therapy with aggressive coronary risk modifications that have been initiated. Those findings and recommendation were discussed with the patient and his family and they are in full understanding and agreement. Duration of procedure: 18 minutes. MMODL / IJN: [id number] /
[2017-10-18] MEDS: ISOSORBIDE MONONITRATE 20 MG TAB PO SCH (09:39)
[2017-10-18] MEDS: PANTOPRAZOLE 40 MG TABLET PO SCH (09:39)
[2017-10-18] MEDS: glipiZIDE 10 MG TAB PO SCH (10:52)
[2017-10-18 12:01] LABS: Glucose,Whole Blood 202 mg/dL (75-99)
[2017-10-18 12:41] VITALS: BP 107/60; TEMP 98.2
[2017-10-19] MEDS ORDERED: ASPIRIN 81 MG PO SCH (07:00)
--- NOTE | 2017-10-22 17:30 | DS ---
DISCHARGE SUMMARY Mr. Benjamin is a 72-year-old gentleman who has a history of coronary artery disease and presented with upper chest, arm and neck discomfort. Please refer to the history and physical. The patient was admitted and placed on observation, where he was monitored with serial EKG and enzymes, which did not show any definitive increase or abnormalities. He was initially seen by Cardiology. Attempts at ambulation and medical management revealed further chest pain, so patient underwent stress testing with a Lexiscan Cardiolite stress test. The EKG portion was non-diagnostic, but the scan portion revealed a reversible defect in the left circumflex distribution. Ejection fraction was 54%. Subsequently the patient underwent cardiac catheterization by Dr. Aranda from Cardiology which showed calcified coronary arteries, moderate disease involving the left circumflex and the right coronary with mild disease in LAD. There was normal LV size and function and felt to be no progression of the disease from 2015. It was felt patient could continue on risk factor modification along with nitrates and further outpatient followup. At this point, the patient is discharged therefore to home. He will follow up with myself and [facility]. He is to remain on the new medications aspirin 81 mg, Iso-Bid mononitrate apparently in 20 mg tablets, a half tablet twice a day, and metformin 1000 mg twice a day. He will continue with his atorvastatin 40 mg, vitamin D3 1000-unit tablets. He does take Hardin 7.5/325 four times a day as needed for pain, which is regulated through the outpatient office. Insulin 10 units subcutaneously at bedtime. Glargine. Omeprazole 20 mg daily. Lyrica 150 mg twice a day. Quinapril 40 mg daily. Amlodipine 10 mg daily. Glipizide 10 mg twice a day. FINAL DISCHARGE DIAGNOSES: 1. Chest pain with history of coronary artery disease as described in his catheterization. Acute myocardial infarction ruled out. 2. Other past medical history includes cervical osteoarthritis with cervical fusion at C4, C5. 3. Hypertension. 4. History of spinal stenosis. 5. Previous lumbar surgery. 6. Type 2 diabetes. 7. Gastroesophageal reflux. 8. Hyperlipidemia. 9. History of colonic polyps. Diet and activities as tolerated. Prognosis is somewhat guarded in light of medical risk factors as delineated above. MMODL / IJN: [id number] /
== END 2017-10-18 15:24 | disposition home or self-care (01) | DRG 287 ==
LOC: EC 22:20 → 3OBS 23:51 → OBSVTOIN 10-17 14:06 → 6SEL 10-17 18:14
PROVIDERS: ADMIT Internal Medicine; ATTEND Internal Medicine
PROC: B2111ZZ Fluoroscopy of Multiple Coronary Arteries using Low Osmolar Contrast (ICD-10-PCS; 2017-10-18)
PROC: B2151ZZ Fluoroscopy of Left Heart using Low Osmolar Contrast (ICD-10-PCS; 2017-10-18)
PROC: 4A023N7 Measurement of Cardiac Sampling and Pressure, Left Heart, Percutaneous Approach (ICD-10-PCS; principal; 2017-10-18 07:52)
DX: I25.10 Atherosclerotic heart disease of native coronary artery without angina pectoris (principal); E11.9 Type 2 diabetes mellitus without complications; E78.5 Hyperlipidemia, unspecified; I10 Essential (primary) hypertension; I25.2 Old myocardial infarction; K21.9 Gastro-esophageal reflux disease without esophagitis; Z79.4 Long term (current) use of insulin; Z79.82 Long term (current) use of aspirin; Z79.899 Other long term (current) drug therapy; Z82.49 Family history of ischemic heart disease and other diseases of the circulatory system; Z86.010 Personal history of colon polyps; Z98.1 Arthrodesis status; Z95.5 Presence of coronary angioplasty implant and graft; Z87.01 Personal history of pneumonia (recurrent); M19.90 Unspecified osteoarthritis, unspecified site; Z79.891 Long term (current) use of opiate analgesic
CPT/HCPCS: 36415; 71275; 78452; 80053; 80061; 82550; 82553; 83690; 83735; 84484; 85025; 85049; 85379; 85610; 85730; 93005; 93017; 93458; 96361; 96365; 96376; 99291

== ENCOUNTER → 2018-02-12 | Outpatient (CLI) | payer MEDICARE ==
--- NOTE | 2018-02-12 15:17 | MR ---
EXAMINATION TYPE: MR lumbar spine wo con DATE OF EXAM: 02/12/2018 COMPARISON: 09/13/2016 HISTORY: Back pain CONTRAST: 0 mL intravenous Gadavist. TECHNIQUE: Multiplanar, multisequence images of the lumbar spine were acquired. FINDINGS: Cord terminates at the L1 level. Pedicles are present L3-L4 and L5. This has been hardenin g artifact in some patients. This is the first postsurgical image the lumbar spine with MRI. L5-S1: Mild disc bulge is present in the central right paracentral regions. No thecal sac compression is evident. No spinal canal stenosis is present. Laminectomy has been performed. Moderate right and left foraminal stenosis is likely present. L4-L5: There is loss of disc height to this level. Minimal residual disc bulge may be present. No the pedro pablo sac compression is evident. Laminectomies been performed. Severe bilateral foraminal stenosis is present. L3-L4: No significant disc bulge is evident. There is narrowing of the disc height. Moderate bilatera l foraminal narrowing is present. No AP spinal canal stenosis is present. L2-L3: Mild disc bulge is present with anterior thecal sac flattening. No AP spinal canal stenosis is present. Facet hypertrophy with ligamentum flavum laxity contributing to lateral canal narrowing. Mo derate bilateral foraminal narrowing is present bilaterally. L1-L2: Mild disc bulge is present with anterior thecal sac. No AP spinal canal stenosis present. Face t hypertrophy and ligamentum flavum laxity is mild posterior lateral thecal sac compression. Foramen are patent. T12-L1: Central right paracentral disc bulge is present with anterior thecal sac flattening. No cord contact is evident. No spinal canal stenosis or neural foraminal stenosis is present. Mild facet hype rtrophy and ligamentum flavum laxity is present. Susceptibility artifact limits the L3-L4 and L5 levels somewhat for evaluation. COMPARISON: Large disc bulge L3-4 significantly reduced. Disc bulging at L5-S1 may be slightly dimini shed. The foraminal stenosis of the lower lumbar spine discussed above appears to be stable over the interval. IMPRESSION: 1. Improvement of the spinal canal narrowing from the presurgical findings. Disc material is L3-4 claudia ears significantly improved. 2. Foraminal stenosis remains present lower lumbar spine bilaterally.
== END | disposition home or self-care (01) ==
LOC: RADMRIMAIN 13:27
PROVIDERS: ATTEND Neurological Surgery
DX: M48.061 Spinal stenosis, lumbar region without neurogenic claudication (principal); M99.73 Connective tissue and disc stenosis of intervertebral foramina of lumbar region; Z98.890 Other specified postprocedural states
CPT/HCPCS: 72148

== ENCOUNTER 2018-02-22 16:30 | Emergency (ER) | payer MEDICARE ==
[2018-02-22] MEDS ORDERED: IPRATROPIUM-ALBUTEROL 3 ML NEB INHALATION STA (17:10)
--- NOTE | 2018-02-22 17:15 | ED ---
General Adult HPI - General Chief complaint: Upper Respiratory Infection Stated complaint: poss pneumonia Time Seen by Provider: 02/22/18 16:52 Source: patient Mode of arrival: ambulatory Limitations: no limitations - History of Present Illness Initial comments: Patient is a 72-year-old male presenting for coughing and congestion. Patient states that he had a cold about 4 days ago where he was having coughing which included yellow sputum, not. He started having some chest pressure and discomfort last night which is worse when he was taking deep breaths and states that it also worse whenever he was coughing. He admits to subjective fevers and chills but no nausea/vomiting/diarrhea. He also admits to lower abdominal and is been present for the last 2 weeks. He denies any urinary symptoms such as dysuria or changes in frequency and states that the pain of his abdomen is been constant. - Related Data Home Medications Medication Instructions Recorded Confirmed Quinapril HCl 40 mg PO DAILY 01/17/14 02/22/18 glipiZIDE [Glucotrol] 10 mg PO BID 01/17/14 02/22/18 amLODIPine BESYLATE [Norvasc] 10 mg PO DAILY 04/19/14 02/22/18 Atorvastatin [Lipitor] 40 mg PO DAILY 08/08/14 02/22/18 Pregabalin [Lyrica] 150 mg PO BID 06/21/16 02/22/18 Omeprazole 20 mg PO DAILY 08/28/17 02/22/18 HYDROcodone/APAP 7.5-325MG [[place] 1 tab PO QID PRN 10/16/17 02/22/18 7.5-325] Previous Rx's Medication Instructions Recorded metFORMIN HCL 1,000 mg PO BID #0 10/18/17 Levofloxacin [Levaquin] 750 mg PO DAILY #4 tab 02/22/18 Allergies Allergy/AdvReac Type Severity Reaction Status Date / Time No Known Allergies Allergy Verified 02/22/18 17:08 Review of Systems ROS Statement: Those systems with pertinent positive or pertinent negative responses have been documented in the HPI. Constitutional: Negative for chills, fatigue and fever. HENT: Negative for congestion. Respiratory: Positive for chest tightness, shortness of breath and wheezing. Positive for cough Cardiovascular: Positive for chest pain and negative palpitations. Gastrointestinal: Positive for abdominal pain. Negative for abdominal distention , diarrhea, nausea and vomiting. Genitourinary: Negative for dysuria. Musculoskeletal: Negative for back pain, neck pain and neck stiffness. Skin: Negative for color change. Neurological: Negative for dizziness, speech difficulty, weakness and light- headedness. Psychiatric/Behavioral: Negative for agitation and confusion. Negative for anxiety ROS Other: All systems not noted in ROS Statement are negative. Past Medical History Past Medical History: Coronary Artery Disease (CAD), Diabetes Mellitus, GERD/ Reflux, Hypertension History of Any Multi-Drug Resistant Organisms: None Reported Past Surgical History: Back Surgery, Heart Catheterization With Stent, Orthopedic Surgery Additional Past Surgical History / Comment(s): neck fusion, back fusion, carpel tunnel Past Anesthesia/Blood Transfusion Reactions: No Reported Reaction Date of Last Stent Placement:: 2011 Past Psychological History: No Psychological Hx Reported Smoking Status: Never smoker Past Alcohol Use History: None Reported Past Drug Use History: None Reported General Exam - General Exam Comments Initial Comments: Constitutional: Pt is oriented to person, place, and time. Pt appears well- developed and well-nourished. No distress. HENT: Head: Normocephalic and atraumatic. Eyes: EOM are normal. Neck: Normal range of motion. Neck supple. Cardiovascular: Normal rate, regular rhythm, S1 normal, S2 normal and normal heart sounds. Exam reveals no gallop and no friction rub. No murmur heard. Pulmonary/Chest: Effort normal and breath sounds normal. No tachypnea and no bradypnea. No respiratory distress. No wheezes or rales noted. Abdominal: Soft. Bowel sounds are normal. Pt exhibits no shifting dullness, no distension, no pulsatile liver, no fluid wave, no abdominal bruit and no ascites. There is no tenderness. There is no rigidity, no rebound, no guarding, no tenderness at McBurney's point and negative Madden's sign. Musculoskeletal: Normal range of motion. Neurological: Pt is alert and oriented to person, place, and time. No cranial nerve deficit. Skin: Skin is warm and dry. No rash noted. Pt is not diaphoretic. No erythema. No pallor. Psychiatric: Pt has a normal mood and affect. Pt behavior is normal. Thought content normal. Limitations: no limitations Course Vital Signs 02/22/18 02/22/18 02/22/18 16:45 17:26 17:32 Temperature 98.0 F Pulse Rate 73 69 72 Respiratory 18 Rate Blood Pressure 128/71 O2 Sat by Pulse 98 Oximetry 02/22/18 02/22/18 18:47 21:36 Temperature 97.6 F 98.3 F Pulse Rate 69 70 Respiratory 20 16 Rate Blood Pressure 141/77 103/74 O2 Sat by Pulse 96 98 Oximetry EKG Findings - EKG Comments: EKG Findings:: EKG shows normal sinus rhythm with a rate of 60 bpm, MD interval 158, QRS 82, QTC 416. Medical Decision Making - Medical Decision Making Laboratory studies showed that there is no significant leukocytosis and chest x- ray was negative for acute infiltrate. Additionally, serial troponins were noted to be negative and EKG had no emergent findings. Nonetheless, because the patient does have some comorbidities, it was thought that the patient would be best served if he was started on antibiotics and therefore he was given levofloxacin. However, he did not display any significantly abnormal vital signs and therefore it was thought that he could be safely discharged. Patient was advised follow-up with PCP in next 1-2 days which she was agreeable with. The time of disposition, patient was resting in bed complaining no acute distress. - Lab Data Result diagrams: 02/22/18 17:15 02/22/18 17:15 Lab Results 02/22/18 02/22/18 02/22/18 Range/Units 17:15 17:15 17:15 WBC 7.4 (3.8-10.6) k/uL RBC 4.59 (4.30-5.90) m/uL Hgb 13.1 (13.0-17.5) gm/dL Hct 39.9 (39.0-53.0) % MCV 87.0 (80.0-100.0) fL MCH 28.6 (25.0-35.0) pg MCHC 32.9 (31.0-37.0) g/dL RDW 14.0 (11.5-15.5) % Plt Count 244 (150-450) k/uL Neutrophils % 54 % Lymphocytes % 29 % Monocytes % 8 % Eosinophils % 4 % Basophils % 1 % Neutrophils # 4.0 (1.3-7.7) k/uL Lymphocytes # 2.1 (1.0-4.8) k/uL Monocytes # 0.6 (0-1.0) k/uL Eosinophils # 0.3 (0-0.7) k/uL Basophils # 0.1 (0-0.2) k/uL D-Dimer (<0.60) mg/L FEU Sodium 140 (137-145) mmol/L Potassium 5.2 H (3.5-5.1) mmol/L Chloride 104 (98-107) mmol/L Carbon Dioxide 23 (22-30) mmol/L Anion Gap 13 mmol/L BUN 28 H (9-20) mg/dL Creatinine 1.08 (0.66-1.25) mg/dL Est GFR (CKD-EPI)AfAm 78 (>60 ml/min/1.73 sqM) Est GFR (CKD-EPI)NonAf 68 (>60 ml/min/1.73 sqM) Glucose 104 H (74-99) mg/dL Calcium 9.9 (8.4-10.2) mg/dL Total Bilirubin 0.4 (0.2-1.3) mg/dL AST 25 (17-59) U/L ALT 37 (21-72) U/L Alkaline Phosphatase 77 (38-126) U/L Troponin I (0.000-0.034) ng/mL Total Protein 7.8 (6.3-8.2) g/dL Albumin 4.5 (3.5-5.0) g/dL Lipase 112 (23-300) U/L Urine Color Light Yellow Urine Appearance Clear (Clear) Urine pH 7.0 (5.0-8.0) Ur Specific [place] 1.004 (1.001-1.035) Urine Protein Negative (Negative) Urine Glucose (UA) Negative (Negative) Urine Ketones Negative (Negative) Urine Blood Negative (Negative) Urine Nitrite Negative (Negative) Urine Bilirubin Negative (Negative) Urine Urobilinogen <2.0 (<2.0) mg/dL Ur Leukocyte Esterase Negative (Negative) Influenza Type A RNA (Not Detectd) Influenza Type B (PCR) (Not Detectd) 02/22/18 02/22/18 02/22/18 Range/Units 17:15 17:50 18:45 WBC (3.8-10.6) k/uL RBC (4.30-5.90) m/uL Hgb (13.0-17.5) gm/dL Hct (39.0-53.0) % MCV (80.0-100.0) fL MCH (25.0-35.0) pg MCHC (31.0-37.0) g/dL RDW (11.5-15.5) % Plt Count (150-450) k/uL Neutrophils % % Lymphocytes % % Monocytes % % Eosinophils % % Basophils % % Neutrophils # (1.3-7.7) k/uL Lymphocytes # (1.0-4.8) k/uL Monocytes # (0-1.0) k/uL Eosinophils # (0-0.7) k/uL Basophils # (0-0.2) k/uL D-Dimer 0.48 (<0.60) mg/L FEU Sodium (137-145) mmol/L Potassium (3.5-5.1) mmol/L Chloride (98-107) mmol/L Carbon Dioxide (22-30) mmol/L Anion Gap mmol/L BUN (9-20) mg/dL Creatinine (0.66-1.25) mg/dL Est GFR (CKD-EPI)AfAm (>60 ml/min/1.73 sqM) Est GFR (CKD-EPI)NonAf (>60 ml/min/1.73 sqM) Glucose (74-99) mg/dL Calcium (8.4-10.2) mg/dL Total Bilirubin (0.2-1.3) mg/dL AST (17-59) U/L ALT (21-72) U/L Alkaline Phosphatase (38-126) U/L Troponin I <0.012 (0.000-0.034) ng/mL Total Protein (6.3-8.2) g/dL Albumin (3.5-5.0) g/dL Lipase (23-300) U/L Urine Color Urine Appearance (Clear) Urine pH (5.0-8.0) Ur Specific [place] (1.001-1.035) Urine Protein (Negative) Urine Glucose (UA) (Negative) Urine Ketones (Negative) Urine Blood (Negative) Urine Nitrite (Negative) Urine Bilirubin (Negative) Urine Urobilinogen (<2.0) mg/dL Ur Leukocyte Esterase (Negative) Influenza Type A RNA Not Detected (Not Detectd) Influenza Type B (PCR) Not Detected (Not Detectd) 02/22/18 Range/Units 20:14 WBC (3.8-10.6) k/uL RBC (4.30-5.90) m/uL Hgb (13.0-17.5) gm/dL Hct (39.0-53.0) % MCV (80.0-100.0) fL MCH (25.0-35.0) pg MCHC (31.0-37.0) g/dL RDW (11.5-15.5) % Plt Count (150-450) k/uL Neutrophils % % Lymphocytes % % Monocytes % % Eosinophils % % Basophils % % Neutrophils # (1.3-7.7) k/uL Lymphocytes # (1.0-4.8) k/uL Monocytes # (0-1.0) k/uL Eosinophils # (0-0.7) k/uL Basophils # (0-0.2) k/uL D-Dimer (<0.60) mg/L FEU Sodium (137-145) mmol/L Potassium (3.5-5.1) mmol/L Chloride (98-107) mmol/L Carbon Dioxide (22-30) mmol/L Anion Gap mmol/L BUN (9-20) mg/dL Creatinine (0.66-1.25) mg/dL Est GFR (CKD-EPI)AfAm (>60 ml/min/1.73 sqM) Est GFR (CKD-EPI)NonAf (>60 ml/min/1.73 sqM) Glucose (74-99) mg/dL Calcium (8.4-10.2) mg/dL Total Bilirubin (0.2-1.3) mg/dL AST (17-59) U/L ALT (21-72) U/L Alkaline Phosphatase (38-126) U/L Troponin I <0.012 (0.000-0.034) ng/mL Total Protein (6.3-8.2) g/dL Albumin (3.5-5.0) g/dL Lipase (23-300) U/L Urine Color Urine Appearance (Clear) Urine pH (5.0-8.0) Ur Specific [place] (1.001-1.035) Urine Protein (Negative) Urine Glucose (UA) (Negative) Urine Ketones (Negative) Urine Blood (Negative) Urine Nitrite (Negative) Urine Bilirubin (Negative) Urine Urobilinogen (<2.0) mg/dL Ur Leukocyte Esterase (Negative) Influenza Type A RNA (Not Detectd) Influenza Type B (PCR) (Not Detectd) Disposition Clinical Impression: Bronchitis Disposition: HOME SELF-CARE Condition: Good Instructions: Upper Respiratory Infection (ED) Prescriptions: Levofloxacin [Levaquin] 750 mg PO DAILY #4 tab Is patient prescribed a controlled substance at d/c from ED?: No Referrals: Rufus Monreal MD [Primary Care Provider] - 1-2 days Time of Disposition: 21:21
[2018-02-22 17:47] LABS: Basophils # (A) 0.1 k/uL (0-0.2); Basophils % (A) 1 %; Eosinophils # (A) 0.3 k/uL (0-0.7); Eosinophils % (A) 4 %; HCT 39.9 % (39.0-53.0); HGB 13.1 gm/dL (13.0-17.5); Lymphocytes # (A) 2.1 k/uL (1.0-4.8); Lymphocytes % (A) 29 %; MCH 28.6 pg (25.0-35.0); MCHC 32.9 g/dL (31.0-37.0); Mean Platelet Volume 6.9; Monocytes # (A) 0.6 k/uL (0-1.0); Monocytes % (A) 8 %; Neutrophils % (A) 54 %; Platelet Count 244 k/uL (150-450); RBC 4.59 m/uL (4.30-5.90); WBC 7.4 k/uL (3.8-10.6)
[2018-02-22 17:51] LABS: Appearance,Urine Clear (Clear); Bilirubin,Urine Negative (Negative); Blood,Urine Negative (Negative); Color,Urine Light Yellow; Glucose,Urine (UA) Negative (Negative); Ketones,Urine Negative (Negative); Leukocyte Esterase,Urine Negative (Negative); Nitrite,Urine Negative (Negative); Protein,Urine Negative (Negative); Specific Gravity,Urine 1.004 (1.001-1.035); Urobilinogen,Urine <2.0 mg/dL (<2.0)
[2018-02-22 17:58] LABS: Albumin 4.5 g/dL (3.5-5.0); Calcium 9.9 mg/dL (8.4-10.2); Potassium 5.2 mmol/L (3.5-5.1); Total Bilirubin 0.4 mg/dL (0.2-1.3); Total Protein 7.8 g/dL (6.3-8.2)
--- NOTE | 2018-02-22 18:22 | XR ---
EXAMINATION TYPE: XR chest 2V DATE OF EXAM: 02/22/2018 COMPARISON: 08/28/2017 HISTORY: Cough TECHNIQUE: Frontal and lateral views of the chest are obtained. FINDINGS: There is linear density in the left upper lobe. Heart size is normal. There is no heart fa ilure. There is cervical spine fusion surgery. IMPRESSION: Left upper lobe scarring or subsegmental atelectasis without change. Normal heart.
[2018-02-22] MEDS ORDERED: LEVOFLOXACIN 750 MG TAB PO STA (21:19)
[2018-02-22 21:37] VITALS: BP 103/74; PULSE 70; RESP 16; TEMP 98.3
== END 2018-02-22 21:36 | disposition home or self-care (01) ==
LOC: EC 16:30
DX: J40 Bronchitis, not specified as acute or chronic (principal); I25.10 Atherosclerotic heart disease of native coronary artery without angina pectoris; E11.9 Type 2 diabetes mellitus without complications; K21.9 Gastro-esophageal reflux disease without esophagitis; I10 Essential (primary) hypertension; Z79.84 Long term (current) use of oral hypoglycemic drugs; Z79.899 Other long term (current) drug therapy; Z95.5 Presence of coronary angioplasty implant and graft; Z98.1 Arthrodesis status
CPT/HCPCS: 36415; 71046; 80053; 81003; 83690; 84484; 85025; 85379; 87502; 93005; 94640; 99284

== ENCOUNTER 2018-03-02 10:54 | Observation (INO) | payer MEDICARE ==
[2018-03-02] MEDS ORDERED: NITROGLYCERIN SL TABS 0.4 MG TAB SUBLINGUAL STA (11:13)
[2018-03-02] MEDS ORDERED: ASPIRIN 81 MG PO STA (11:13)
[2018-03-02] MEDS ORDERED: NITROGLYCERIN OINT 1 INCH/GM PACKET TOPICAL STA (11:13)
--- NOTE | 2018-03-02 11:18 | ED ---
General Adult HPI - General Chief complaint: Chest Pain Stated complaint: chest pain Time Seen by Provider: 03/02/18 11:00 Source: patient, RN notes reviewed Mode of arrival: wheelchair Limitations: no limitations - History of Present Illness Initial comments: This a 72-year-old male who presents emergency department with past medical history significant for coronary artery disease and stent placement in the past. Patient states he has extensive family history with all of his siblings from cardiac disease. Patient also is a diabetic and has high blood pressure and high cholesterol. Patient denies any smoking. Patient states about 6:00 this morning he awoke with chest pain that radiated down his left arm. Patient denied any associated diaphoresis or associated difficulty breathing. Patient denies any shortness of breath or nausea. Patient states the pain is similar to pains had in the past when he had his stent placed. Patient states he took nitroglycerin of his own but they were old so he took some of his 's which were new her and so they tingled under his tongue they were not helpful. Patient continues to have chest pressure. Patient denies any abdominal pain patient denies any recent fever chills or cough per patient denies any leg swelling patient denies any calf tenderness. - Related Data Home Medications Medication Instructions Recorded Confirmed Quinapril HCl 40 mg PO DAILY 01/17/14 02/22/18 glipiZIDE [Glucotrol] 10 mg PO BID 01/17/14 02/22/18 amLODIPine BESYLATE [Norvasc] 10 mg PO DAILY 04/19/14 02/22/18 Atorvastatin [Lipitor] 40 mg PO DAILY 08/08/14 02/22/18 Pregabalin [Lyrica] 150 mg PO BID 06/21/16 02/22/18 Omeprazole 20 mg PO DAILY 08/28/17 02/22/18 HYDROcodone/APAP 7.5-325MG [[place] 1 tab PO QID PRN 10/16/17 02/22/18 7.5-325] Previous Rx's Medication Instructions Recorded metFORMIN HCL 1,000 mg PO BID #0 10/18/17 Levofloxacin [Levaquin] 750 mg PO DAILY #4 tab 02/22/18 Allergies Allergy/AdvReac Type Severity Reaction Status Date / Time No Known Allergies Allergy Verified 03/02/18 11:01 Review of Systems ROS Statement: Those systems with pertinent positive or pertinent negative responses have been documented in the HPI. ROS Other: All systems not noted in ROS Statement are negative. Past Medical History Past Medical History: Coronary Artery Disease (CAD), Diabetes Mellitus, GERD/ Reflux, Hypertension History of Any Multi-Drug Resistant Organisms: None Reported Past Surgical History: Back Surgery, Heart Catheterization With Stent, Orthopedic Surgery Additional Past Surgical History / Comment(s): neck fusion, back fusion, carpel tunnel Past Anesthesia/Blood Transfusion Reactions: No Reported Reaction Date of Last Stent Placement:: 2011 Past Psychological History: No Psychological Hx Reported Smoking Status: Never smoker Past Alcohol Use History: None Reported Past Drug Use History: None Reported General Exam - General Exam Comments Initial Comments: GENERAL: Patient is well-developed and well-nourished. Patient is nontoxic and well- hydrated and is in mild distress. ENT: Neck is soft and supple. No significant lymphadenopathy is noted. Oropharynx is clear. Moist mucous membranes. Neck has full range of motion without eliciting any pain. EYES: The sclera were anicteric and conjunctiva were pink and moist. Extraocular movements were intact and pupils were equal round and reactive to light. Eyelids were unremarkable. PULMONARY: Unlabored respirations. Good breath sounds bilaterally. No audible rales rhonchi or wheezing was noted. CARDIOVASCULAR: There is a regular rate and rhythm without any murmurs gallops or rubs. Patient has bilateral DP pulses ABDOMEN: Soft and nontender with normal bowel sounds. No palpable organomegaly was noted. There is no palpable pulsatile mass. SKIN: Skin is clear with no lesions or rashes and otherwise unremarkable. NEUROLOGIC: Patient is alert and oriented x3. Cranial nerves II through XII are grossly intact. Motor and sensory are also intact. Normal speech, volume and content. Symmetrical smile. MUSCULOSKELETAL: Normal extremities with adequate strength and full range of motion. No lower extremity swelling or edema. No calf tenderness. LYMPHATICS: No significant lymphadenopathy is noted PSYCHIATRIC: Normal psychiatric evaluation. N Limitations: no limitations Course Vital Signs 03/02/18 10:59 Temperature 97.8 F Pulse Rate 76 Respiratory 20 Rate Blood Pressure 152/72 O2 Sat by Pulse 99 Oximetry Medical Decision Making - Medical Decision Making EKG shows normal sinus rhythm at 70 bpm MD interval is 146 QRS is 82 QT intervals 3-4 QTC is 414. Patient's EKG shows a slight ST segment elevation in leads 23. Patient also has some slight incline in the ST segment elevation when compared to an old EKG in leads V4 V5 and V6 I spoke with Dr. Donis and sensitivity EKG and he felt as though there were no new changes. A second EKG was done at 12 05H with a normal sinus rhythm at 65 bpm MD interval 150 QRS is 82 QT interval 36 QTC is 411. Patient's EKG continues to show very slight ST segment elevation in leads 2 and 3 and is well slight incline in the ST segment in leads V4 V5 and V6 unchanged from the first EKG today. Patient continued to have chest pain throughout the ED course. I started the patient on heparin I considered this unstable angina and admitted the patient. I spoke with Dr. Monreal and he agreed to admit the patient admitted the patient wrote admitting orders and consult cardiology continued heparin and aspirin Nitropaste on the floor. - Lab Data Result diagrams: 03/02/18 11:23 03/02/18 11:23 Lab Results 03/02/18 03/02/18 03/02/18 Range/Units 11:23 11:23 11:23 WBC 8.2 (3.8-10.6) k/uL RBC 4.43 (4.30-5.90) m/uL Hgb 12.9 L (13.0-17.5) gm/dL Hct 38.8 L (39.0-53.0) % MCV 87.7 (80.0-100.0) fL MCH 29.1 (25.0-35.0) pg MCHC 33.2 (31.0-37.0) g/dL RDW 14.1 (11.5-15.5) % Plt Count 253 (150-450) k/uL Neutrophils % 63 % Lymphocytes % 26 % Monocytes % 5 % Eosinophils % 4 % Basophils % 1 % Neutrophils # 5.2 (1.3-7.7) k/uL Lymphocytes # 2.2 (1.0-4.8) k/uL Monocytes # 0.4 (0-1.0) k/uL Eosinophils # 0.3 (0-0.7) k/uL Basophils # 0.1 (0-0.2) k/uL PT (9.0-12.0) sec INR (<1.2) APTT (22.0-30.0) sec Sodium 137 (137-145) mmol/L Potassium 5.0 (3.5-5.1) mmol/L Chloride 103 (98-107) mmol/L Carbon Dioxide 22 (22-30) mmol/L Anion Gap 12 mmol/L BUN 25 H (9-20) mg/dL Creatinine 0.97 (0.66-1.25) mg/dL Est GFR (CKD-EPI)AfAm 90 (>60 ml/min/1.73 sqM) Est GFR (CKD-EPI)NonAf 78 (>60 ml/min/1.73 sqM) Glucose 275 H (74-99) mg/dL Calcium 9.2 (8.4-10.2) mg/dL Magnesium 1.5 L (1.6-2.3) mg/dL Total Bilirubin 0.4 (0.2-1.3) mg/dL AST 26 (17-59) U/L ALT 32 (21-72) U/L Alkaline Phosphatase 74 (38-126) U/L Total Creatine Kinase 119 (55-170) U/L CK-MB (CK-2) 1.1 (0.0-2.4) ng/mL CK-MB (CK-2) Rel Index 0.9 Troponin I <0.012 (0.000-0.034) ng/mL Total Protein 6.9 (6.3-8.2) g/dL Albumin 3.9 (3.5-5.0) g/dL 03/02/18 Range/Units 11:23 WBC (3.8-10.6) k/uL RBC (4.30-5.90) m/uL Hgb (13.0-17.5) gm/dL Hct (39.0-53.0) % MCV (80.0-100.0) fL MCH (25.0-35.0) pg MCHC (31.0-37.0) g/dL RDW (11.5-15.5) % Plt Count (150-450) k/uL Neutrophils % % Lymphocytes % % Monocytes % % Eosinophils % % Basophils % % Neutrophils # (1.3-7.7) k/uL Lymphocytes # (1.0-4.8) k/uL Monocytes # (0-1.0) k/uL Eosinophils # (0-0.7) k/uL Basophils # (0-0.2) k/uL PT 10.5 (9.0-12.0) sec INR 1.0 (<1.2) APTT 24.9 (22.0-30.0) sec Sodium (137-145) mmol/L Potassium (3.5-5.1) mmol/L Chloride (98-107) mmol/L Carbon Dioxide (22-30) mmol/L Anion Gap mmol/L BUN (9-20) mg/dL Creatinine (0.66-1.25) mg/dL Est GFR (CKD-EPI)AfAm (>60 ml/min/1.73 sqM) Est GFR (CKD-EPI)NonAf (>60 ml/min/1.73 sqM) Glucose (74-99) mg/dL Calcium (8.4-10.2) mg/dL Magnesium (1.6-2.3) mg/dL Total Bilirubin (0.2-1.3) mg/dL AST (17-59) U/L ALT (21-72) U/L Alkaline Phosphatase (38-126) U/L Total Creatine Kinase (55-170) U/L CK-MB (CK-2) (0.0-2.4) ng/mL CK-MB (CK-2) Rel Index Troponin I (0.000-0.034) ng/mL Total Protein (6.3-8.2) g/dL Albumin (3.5-5.0) g/dL Critical Care Time Critical Care Time: Yes Total Critical Care Time: 35 Disposition Clinical Impression: Unstable angina pectoris Disposition: ADMITTED IP TO THIS HOSP Referrals: Rufus Monreal MD [Primary Care Provider] - 1-2 days Time of Disposition: 12:12
[2018-03-02 11:38] LABS: Basophils # (A) 0.1 k/uL (0-0.2); Basophils % (A) 1 %; Eosinophils # (A) 0.3 k/uL (0-0.7); Eosinophils % (A) 4 %; HCT 38.8 % (39.0-53.0); HGB 12.9 gm/dL (13.0-17.5); Lymphocytes # (A) 2.2 k/uL (1.0-4.8); Lymphocytes % (A) 26 %; MCH 29.1 pg (25.0-35.0); MCHC 33.2 g/dL (31.0-37.0); MCV 87.7 fL (80.0-100.0); Mean Platelet Volume 6.7; Monocytes # (A) 0.4 k/uL (0-1.0); Monocytes % (A) 5 %; Neutrophils # (A) 5.2 k/uL (1.3-7.7); Neutrophils % (A) 63 %; Platelet Count 253 k/uL (150-450); RBC 4.43 m/uL (4.30-5.90); RDW 14.1 % (11.5-15.5); WBC 8.2 k/uL (3.8-10.6)
[2018-03-02 11:49] LABS: Albumin 3.9 g/dL (3.5-5.0); Calcium 9.2 mg/dL (8.4-10.2); Magnesium 1.5 mg/dL (1.6-2.3); Total Bilirubin 0.4 mg/dL (0.2-1.3); Total Protein 6.9 g/dL (6.3-8.2)
[2018-03-02 11:50] LABS: Partial Thromboplastin Time 24.9 sec (22.0-30.0); Prothrombin Time 10.5 sec (9.0-12.0)
[2018-03-02 11:57] LABS: Creatine Kinase 119 U/L (55-170)
--- NOTE | 2018-03-02 12:00 | XR ---
EXAMINATION TYPE: XR chest 2V DATE OF EXAM: 03/02/2018 COMPARISON: 02/22/2018 INDICATION: Chest pain and hypertension TECHNIQUE: Frontal and lateral views of the chest are obtained. FINDINGS: The heart size is normal. The pulmonary vasculature is normal. No suspicious focal infiltrates are evident. Degree of inspiration is somewhat limited. IMPRESSION: 1. No acute pulmonary process. Inspiration is somewhat limited on this exam.
[2018-03-02] MEDS ORDERED: MAGNESIUM SULFATE-D5W PMX 1 GM in DEXTROSE/WATER 1 100ML.BAG IVPB ONE (12:05)
[2018-03-02] MEDS ORDERED: HEPARIN SODIUM,PORCINE 5,000 UNIT/ML 1 ML VIAL IV ONE (12:06)
[2018-03-02 12:10] LABS: Creatine Kinase MB 1.1 ng/mL (0.0-2.4); Troponin I <0.012 ng/mL (0.000-0.034)
[2018-03-02] MEDS ORDERED: NITROGLYCERIN SL TABS 0.4 MG TAB SUBLINGUAL PRN ×2 (12:13→12:59)
[2018-03-02] MEDS ORDERED: HEPARIN SOD,PORK IN 0.45% NACL 25,000 UNIT in 0.45% NACL 1 250ML.BAG IV SCH (12:15)
[2018-03-02] MEDS ORDERED: HYDROcodone/APAP 7.5-325MG 1 EACH TAB PO PRN (12:59)
--- NOTE | 2018-03-02 13:08 | P.HPIM ---
History of Present Illness Chief complaint Chest pain History of present illness Patient awoke this morning with left anterior chest pain with some radiation down the left arm. He did not have any unusual shortness of breath or pleuritic pain associated with this. No nausea or vomiting. Apparently he had some nitroglycerin which was somewhat old although he took one of his family members nitroglycerin that did burn his tongue but did not relieve his pain. Patient apparently drove himself to the hospital. Pain is eased somewhat here in the emergency room with the use of nitro paste. Past medical history Patient does have a history of coronary artery disease and did have heart catheterization back in 2015. Also because of recurrent chest pain he underwent repeat cardiac catheterization last October. At that time, a moderate disease involving the left circumflex and right coronary artery disease was seen with mild degree of disease in the LAD. There is normal LV size and function at that time. There did not seem to be progression from an earlier catheterization of 2014. Patient also has multiple risk factors including, hypertension, type 2 diabetes , hyperlipidemia. Patient also has cervical osteoarthritis with previous fusion at C4-C5 Lumbar spinal stenosis for which she has had previous surgery Gastroesophageal reflux History of colonic polyps. Patient has had a cervical and lumbar surgeries along with carpal tunnel surgery. Apparently also had cardiac stenting back in 2011. No known ALLERGIES Home medications Aspirin 81 mg daily Metformin thousand milligrams twice a day Leuko-Trol 10 mg twice a day Amlodipine 10 mg daily Quinapril 40 mg daily Lyrica 150 mg twice a day Omeprazole 20 mg daily Nitroglycerin 0.4 sublingual when necessary [place] 7.5-325 mg 14 times a day when necessary for chronic pain Atorvastatin 40 mg daily Review of systems Patient did have mild headache with the nitroglycerin. No visual disturbances. Denies any unusual shortness of breath, cough. No fever or chills. No nausea or vomiting. No urinary or bowel symptomatology. No unusual edema. Family history Positive for coronary artery disease. Patient has had 3 siblings with coronary artery disease with 2 of them at age 50 and 60. Social history patient lives locally with his . There is no excessive alcohol intake and no smoking history. Physical examination Temperature is 97.8 with a pulse of 74 and respirations 24. Blood pressure 111/ 64 and he is 96% saturated Head is atraumatic. Extraocular movements are intact. Pupils were equal and reactive. Neck is not stiff. No adenopathy or thyromegaly. No definite carotid bruits. No unusual chest wall tenderness. Lungs are clear to auscultation. Heart tones are regular without murmurs or rubs. Abdomen is soft and nontender without rebound, guarding or masses detected. Extremities reveal no edema. Neurologically he is alert and oriented. Cranial nerves intact. No focal neurological deficits. Laboratory White count is 8.2 with a hemoglobin 12.9 and a platelet count of 253. INR is 1.0. Sodium is 137 with potassium of 5.0 and a CO2 content of 22. BUN of 25 with creatinine 0.97 given him a GFR of 78. Random blood sugar was 275. calcium 9.2 with magnesium 1.5. Troponin was less than 0.012. CK normal at 119. Albumin 3.9. EKG showed a normal sinus rhythm. Slight ST segment elevation V4 to V6. Chest x-ray showed no acute pulmonary process although inspiration was somewhat diminished. Impressions Chest pain in the patient with known coronary artery disease and multiple risk factors as stated above. Elevated blood sugar/hyperglycemia in a patient with known diabetes. No Other diagnosis as listed in the past medical history. Plans Patient has been placed on heparin and has received nitroglycerin and aspirin has been increased to 325 mg. Patient will be placed in observation and cardiology consult to be obtained along with serial enzymes. Further recommendations and treatment pending clinical response and results of above. We'll continue patient's home medication although we will hold metformin. Also will need to monitor blood pressure and possibly adjust dose of antihypertensives. Past Medical History Past Medical History: Coronary Artery Disease (CAD), Diabetes Mellitus, GERD/ Reflux, Hypertension History of Any Multi-Drug Resistant Organisms: None Reported Past Surgical History: Back Surgery, Heart Catheterization With Stent, Orthopedic Surgery Additional Past Surgical History / Comment(s): neck fusion, back fusion, carpel tunnel Past Anesthesia/Blood Transfusion Reactions: No Reported Reaction Date of Last Stent Placement:: 2011 Past Psychological History: No Psychological Hx Reported Smoking Status: Never smoker Past Alcohol Use History: None Reported Past Drug Use History: None Reported Medications and Allergies Home Medications Medication Instructions Recorded Confirmed Type Quinapril HCl 40 mg PO DAILY 01/17/14 03/02/18 History glipiZIDE [Glucotrol] 10 mg PO BID 01/17/14 03/02/18 History amLODIPine BESYLATE [Norvasc] 10 mg PO DAILY 04/19/14 03/02/18 History Atorvastatin [Lipitor] 40 mg PO DAILY 08/08/14 03/02/18 History Pregabalin [Lyrica] 150 mg PO BID 06/21/16 03/02/18 History Omeprazole 20 mg PO DAILY 08/28/17 03/02/18 History HYDROcodone/APAP 7.5-325MG [[place] 1 tab PO QID PRN 10/16/17 03/02/18 History 7.5-325] metFORMIN HCL 1,000 mg PO BID #0 10/18/17 03/02/18 Rx Aspirin [Adult Low Dose Aspirin EC] 81 mg PO DAILY 03/02/18 03/02/18 History Nitroglycerin Sl Tabs [Nitrostat] 0.4 mg SUBLINGUAL Q5M PRN 03/02/18 03/02/18 History Allergies Allergy/AdvReac Type Severity Reaction Status Date / Time No Known Allergies Allergy Verified 03/02/18 12:21 Physical Exam Vitals: Vital Signs Temp Pulse Resp BP Pulse Ox 03/02/18 10:59 97.8 F 76 20 152/72 99 Intake and Output 03/01/18 03/02/18 03/02/18 22:59 06:59 14:59 Other: Weight 84.822 kg Results CBC & Chem 7: 03/02/18 11:23 03/02/18 11:23 Labs: Abnormal Lab Results - Last 24 Hours (Table) 03/02/18 03/02/18 Range/Units 11:23 11:23 Hgb 12.9 L (13.0-17.5) gm/dL Hct 38.8 L (39.0-53.0) % BUN 25 H (9-20) mg/dL Glucose 275 H (74-99) mg/dL Magnesium 1.5 L (1.6-2.3) mg/dL
[2018-03-02 18:03] LABS: Creatine Kinase 90 U/L (55-170)
[2018-03-02 18:16] LABS: Creatine Kinase MB 0.9 ng/mL (0.0-2.4); Troponin I <0.012 ng/mL (0.000-0.034)
[2018-03-02 20:59] LABS: Glucose,Whole Blood 191 mg/dL (75-99)
[2018-03-02] MEDS: PREGABALIN 50 MG CAP PO SCH (21:31)
[2018-03-02] MEDS: glipiZIDE 10 MG TAB PO SCH (21:31)
[2018-03-02] MEDS: INSULIN ASPART 100 UNIT/ML 1 ML 10 ML VIAL SQ SCH (21:31)
[2018-03-02 21:47] VITALS: BMI 29.7
[2018-03-02 22:12] LABS: Glucose,Whole Blood 152 mg/dL (75-99)
[2018-03-02] MEDS: NITROGLYCERIN OINT 1 INCH/GM PACKET TOPICAL SCH (22:32)
[2018-03-03] MEDS: NITROGLYCERIN OINT 1 INCH/GM PACKET TOPICAL SCH ×3 (00:21→12:25)
[2018-03-03 00:30] LABS: Creatine Kinase 87 U/L (55-170)
[2018-03-03 00:44] LABS: Creatine Kinase MB 1.1 ng/mL (0.0-2.4); Troponin I <0.012 ng/mL (0.000-0.034)
[2018-03-03 06:57] LABS: Glucose,Whole Blood 107 mg/dL (75-99)
[2018-03-03] MEDS ORDERED: PANTOPRAZOLE 40 MG TABLET PO SCH (07:30)
[2018-03-03 07:55] LABS: Cholesterol 137 mg/dL (<200); HDL Cholesterol 39 mg/dL (40-60); LDL Cholesterol,Calculated 67 mg/dL (0-99); Triglycerides 156 mg/dL (<150)
[2018-03-03] MEDS: INSULIN ASPART 100 UNIT/ML 1 ML 10 ML VIAL SQ SCH ×2 (08:41→13:29)
[2018-03-03 08:50] VITALS: RESP 16
[2018-03-03] MEDS ORDERED: amLODIPine 10 MG TAB PO SCH (09:00)
[2018-03-03] MEDS ORDERED: ATORVASTATIN 40 MG TAB PO SCH (09:00)
[2018-03-03] MEDS ORDERED: ASPIRIN 325 MG TAB PO SCH (09:00)
[2018-03-03] MEDS ORDERED: LISINOPRIL 20 MG TAB PO SCH (09:00)
[2018-03-03] MEDS: glipiZIDE 10 MG TAB PO SCH (09:57)
[2018-03-03] MEDS: PREGABALIN 50 MG CAP PO SCH (09:57)
[2018-03-03 11:40] LABS: Glucose,Whole Blood 189 mg/dL (75-99)
[2018-03-03 12:16] VITALS: BP 128/76; PULSE 59; TEMP 98.4
--- NOTE | 2018-03-03 12:57 | P.CRDCN ---
History of Present Illness History of present illness: This is Dr. Donis dictating a consult on this patient The patient was interviewed and examined by me IMPRESSION / ASSESSMENT: Atypical chest discomfort with normal cardiac enzymes PLAN: Follow-up with primary care physician and cardio just HPI Chest discomfort with radiation of the left arm not relieved with nitroglycerin Coronary angiography several months back in 2018, no progression of coronary artery disease Coronary stenting in 2011 ROS: No fever chills or rigors, no cough, phlegm or expectoration, no nausea, vomiting or diarrhea, no hematuria, dysuria, no musculoskeletal complaints, no strokes or seizures, no skin lesions. EXAMINATION: Afebrile 97.6F pulse rate in the 50s, blood pressure 124/72 mmHg Normal heart sounds normal S1 normal S2 Breath sounds are clear no rhonchi no crackles Abdomen is soft nontender Extremities are warm no edema REVIEW OF LABS, ECG & MEDICAL DATA Patient takes aspirin metformin glipizide amlodipine quinapril and atorvastatin at home Hemoglobin 12.9, potassium 5.0 elevated glucose low magnesium of 1.5 Troponins normal 2 ECG shows heart rate 70 beats a minute sinus rhythm normal TX narrow QRS ST segment elevation consistent with early repolarization abnormality fairly diffuse, no TX depression Follow-up ECG appears normal with subtle early repolarization abnormality Past Medical History Past Medical History: Coronary Artery Disease (CAD), Diabetes Mellitus, GERD/ Reflux, Hyperlipidemia, Hypertension History of Any Multi-Drug Resistant Organisms: None Reported Past Surgical History: Back Surgery, Heart Catheterization With Stent, Orthopedic Surgery Additional Past Surgical History / Comment(s): neck fusion, back fusion, carpel tunnel Past Anesthesia/Blood Transfusion Reactions: No Reported Reaction Date of Last Stent Placement:: 2011 Past Psychological History: No Psychological Hx Reported Smoking Status: Never smoker Past Alcohol Use History: None Reported Past Drug Use History: None Reported - Past Family History Father Family Medical History: Myocardial Infarction ([place]) Additional Family Medical History / Comment(s): passed 72 Mother Family Medical History: Myocardial Infarction ([place]) Additional Family Medical History / Comment(s): passed 77 Brother(s) Family Medical History: Myocardial Infarction ([place]) Additional Family Medical History / Comment(s): 3 brothers passed from [place] in 50' s Medications and Allergies Home Medications Medication Instructions Recorded Confirmed Type Quinapril HCl 40 mg PO DAILY 01/17/14 03/02/18 History glipiZIDE [Glucotrol] 10 mg PO BID 01/17/14 03/02/18 History amLODIPine BESYLATE [Norvasc] 10 mg PO DAILY 04/19/14 03/02/18 History Atorvastatin [Lipitor] 40 mg PO DAILY 08/08/14 03/02/18 History Pregabalin [Lyrica] 150 mg PO BID 06/21/16 03/02/18 History Omeprazole 20 mg PO DAILY 08/28/17 03/02/18 History HYDROcodone/APAP 7.5-325MG [[place] 1 tab PO QID PRN 10/16/17 03/02/18 History 7.5-325] metFORMIN HCL 1,000 mg PO BID #0 10/18/17 03/02/18 Rx Aspirin [Adult Low Dose Aspirin EC] 81 mg PO DAILY 03/02/18 03/02/18 History Nitroglycerin Sl Tabs [Nitrostat] 0.4 mg SUBLINGUAL Q5M PRN 03/02/18 03/02/18 History Allergies Allergy/AdvReac Type Severity Reaction Status Date / Time No Known Allergies Allergy Verified 03/02/18 12:21 Physical Exam Vitals: Vital Signs Temp Pulse Pulse Resp BP BP Pulse Ox 03/03/18 04:00 97.6 F 59 L 18 124/72 96 03/03/18 03:45 18 03/03/18 00:00 98.2 F 69 18 128/71 94 L 03/02/18 20:00 18 03/02/18 19:30 98.3 F 65 18 134/70 94 L 03/02/18 19:20 97.8 F 70 11 L 111/66 95 03/02/18 14:42 70 11 L 111/66 95 03/02/18 14:30 70 11 L 111/66 95 03/02/18 14:00 67 19 103/68 94 L 03/02/18 13:30 73 13 103/69 94 L 03/02/18 13:00 72 13 94/74 94 L 03/02/18 12:30 74 24 111/64 96 03/02/18 12:00 70 9 L 117/63 03/02/18 11:30 78 15 167/81 03/02/18 11:08 97 03/02/18 10:59 97.8 F 76 20 152/72 99 Intake and Output 03/02/18 03/03/18 03/03/18 22:59 06:59 14:59 Intake Total 150 Balance 150 Intake: Amount of Fluid Infused ( 150 ml) Other: Voiding Method Toilet Toilet # Voids 2 2 Weight 91.5 kg Results 03/02/18 11:23 03/02/18 11:23 Cardiac Enzymes 03/02/18 03/02/18 03/02/18 Range/Units 11:23 11:23 17:18 AST 26 (17-59) U/L CK-MB (CK-2) 1.1 0.9 (0.0-2.4) ng/mL Troponin I <0.012 <0.012 (0.000-0.034) ng/mL 03/02/18 Range/Units 23:32 AST (17-59) U/L CK-MB (CK-2) 1.1 (0.0-2.4) ng/mL Troponin I <0.012 (0.000-0.034) ng/mL Coagulation 03/02/18 03/02/18 03/03/18 Range/Units 11:23 20:12 07:00 PT 10.5 (9.0-12.0) sec APTT 24.9 46.2 H 49.4 H (22.0-30.0) sec Lipids 03/03/18 Range/Units 07:00 Triglycerides 156 H (<150) mg/dL Cholesterol 137 (<200) mg/dL HDL Cholesterol 39 L (40-60) mg/dL CBC 03/02/18 Range/Units 11:23 WBC 8.2 (3.8-10.6) k/uL RBC 4.43 (4.30-5.90) m/uL Hgb 12.9 L (13.0-17.5) gm/dL Hct 38.8 L (39.0-53.0) % Plt Count 253 (150-450) k/uL Comprehensive Metabolic Panel 03/02/18 Range/Units 11:23 Sodium 137 (137-145) mmol/L Potassium 5.0 (3.5-5.1) mmol/L Chloride 103 (98-107) mmol/L Carbon Dioxide 22 (22-30) mmol/L BUN 25 H (9-20) mg/dL Creatinine 0.97 (0.66-1.25) mg/dL Glucose 275 H (74-99) mg/dL Calcium 9.2 (8.4-10.2) mg/dL AST 26 (17-59) U/L ALT 32 (21-72) U/L Alkaline Phosphatase 74 (38-126) U/L Total Protein 6.9 (6.3-8.2) g/dL Albumin 3.9 (3.5-5.0) g/dL Current Medications Generic Name Dose Route Start Last Admin Trade Name Freq PRN Reason Stop Dose Admin Hydrocodone Bitart/Acetaminophen 1 each 03/02/18 12:59 03/03/18 01:46 [place] 7.5-325 PO 1 each QID PRN Administration Pain Amlodipine Besylate 10 mg 03/03/18 09:00 Norvasc PO DAILY [facility] Aspirin 325 mg 03/03/18 09:00 Aspirin PO DAILY [facility] Atorvastatin Calcium 40 mg 03/03/18 09:00 Lipitor PO DAILY [facility] Glipizide 10 mg 03/02/18 17:30 03/02/18 21:31 Glucotrol PO 10 mg AC-BID [facility] Administration Heparin Sodium/Sodium Chloride 250 mls @ 10.17 mls/hr 03/02/18 12:15 14:39 25,000 unit/ Sodium Chloride IV 12 units/kg/hr .Q24H [place] 10.17 mls/hr Administration Protocol 12 UNITS/KG/HR Insulin Aspart 0 unit 03/02/18 17:30 03/02/18 21:31 Novolog SQ 3 unit AC-TID [place] Administration Protocol Lisinopril 40 mg 03/03/18 09:00 Zestril PO DAILY [facility] Nitroglycerin 1 inch 03/02/18 18:00 03/03/18 05:20 Nitro-Bid Oint TOPICAL Not Given Q6HR [facility] Nitroglycerin 0.4 mg 03/02/18 12:59 Nitrostat SUBLINGUAL Q5M PRN Chest Pain Pantoprazole Sodium 40 mg 03/03/18 07:30 Protonix PO AC-BRKFST [facility] Pregabalin 150 mg 03/02/18 21:00 03/02/18 21:31 Lyrica PO 150 mg BID [place] Administration Intake and Output 03/02/18 03/03/18 03/03/18 22:59 06:59 14:59 Intake Total 150 Balance 150 Intake: Amount of Fluid Infused ( 150 ml) Other: Voiding Method Toilet Toilet # Voids 2 2 Weight 91.5 kg 03/02/18 11:23 03/02/18 11:23
--- NOTE | 2018-03-03 14:18 | P.DS ---
Providers Date of admission: 03/02/18 12:13 Attending physician: Rufus Monreal The patient presented with chest pain consistent by history from cardiac origin with left anterior chest pain and some radiation down the left arm. It was eventually relieved with nitroglycerin patch in the emergency room. Patient suddenly had awoken with the chest pain from sleep. Patient had previous history of coronary artery disease with previous stenting in 2011. And also had catheterization back in October 2017. Multiple risk factors that include hypertension, diabetes type 2 and hyperlipidemia. Patient was monitored on observation/telemetry unit. He did not develop any further angina-type chest pain. Troponins 3 were negative. EKG did not show any acute changes. Patient was seen by cardiology. Please refer to their consultation. At this time plans are for discharge home and follow up outpatient with his regular junior financial analyst. Discharge diagnosis: 1. Left-sided chest pain in a patient with underlying coronary artery disease as described in the history of present illness. Negative though for acute ischemic event and likely musculoskeletal in nature. 2. Multiple coronary risk factors including hypertension, diabetes and hyperlipidemia along with previous diagnosis coronary artery disease and previous stenting. 3. Spinal osteoarthritis of the cervical and lumbar spine. Associated with chronic pain syndrome. 4. Gastroesophageal reflux 5. History of colonic polyps Home medications Aspirin 81 mg daily Resume metformin thousand milligrams twice a day Glipizide 10 mg twice a day Amlodipine 10 mg daily Quinapril 40 mg daily Lyrica 150 mg twice a day Omeprazole 20 mg daily Nitroglycerin sublingual 0.4 mg when necessary pain. New prescription to be sent [facility] to his [facility]. [place] 7.5-325 one 4 times a day as needed for chronic pain from spinal arthritis Atorvastatin 40 mg daily Diet and activities as tolerated. No marked exertional activities until seen by his regular junior financial analyst. Consults: 03/02/18 12:13 Consult Physician Urgent Consulting Provider: [facility] Consult Reason/Comments: Unstable angina Do you want consulting provider notified?: Yes Primary care physician: Rufus Monreal Plan - Discharge Summary New Discharge Prescriptions: No Action glipiZIDE [Glucotrol] 10 mg PO BID Quinapril HCl 40 mg PO DAILY amLODIPine BESYLATE [Norvasc] 10 mg PO DAILY Atorvastatin [Lipitor] 40 mg PO DAILY Pregabalin [Lyrica] 150 mg PO BID Omeprazole 20 mg PO DAILY HYDROcodone/APAP 7.5-325MG [[place] 7.5-325] 1 tab PO QID PRN PRN Reason: Pain metFORMIN HCL 1,000 mg PO BID #0 Nitroglycerin Sl Tabs [Nitrostat] 0.4 mg SUBLINGUAL Q5M PRN PRN Reason: Chest Pain Aspirin [Adult Low Dose Aspirin EC] 81 mg PO DAILY Discharge Medication List Quinapril HCl 40 mg PO DAILY 01/17/14 [History] glipiZIDE [Glucotrol] 10 mg PO BID 01/17/14 [History] amLODIPine BESYLATE [Norvasc] 10 mg PO DAILY 04/19/14 [History] Atorvastatin [Lipitor] 40 mg PO DAILY 08/08/14 [History] Pregabalin [Lyrica] 150 mg PO BID 06/21/16 [History] Omeprazole 20 mg PO DAILY 08/28/17 [History] HYDROcodone/APAP 7.5-325MG [[place] 7.5-325] 1 tab PO QID PRN 10/16/17 [History] metFORMIN HCL 1,000 mg PO BID #0 10/18/17 [Rx] Aspirin [Adult Low Dose Aspirin EC] 81 mg PO DAILY 03/02/18 [History] Nitroglycerin Sl Tabs [Nitrostat] 0.4 mg SUBLINGUAL Q5M PRN 03/02/18 [History] Follow up Appointment(s)/Referral(s): Ree Aranda MD [STAFF PHYSICIAN] - 2 Weeks Rufus Monreal MD [Primary Care Provider] - 1-2 days Patient Instructions/Handouts: Chest Pain (DC)
[2018-03-04 09:55] LABS: Hemoglobin A1C 8.4 % (4.0-6.0)
== END 2018-03-03 14:15 | disposition home or self-care (01) ==
LOC: EC 10:54 → 1SOBS 12:13
PROVIDERS: ADMIT Internal Medicine; ATTEND Internal Medicine
DX: I25.110 Atherosclerotic heart disease of native coronary artery with unstable angina pectoris (principal); I10 Essential (primary) hypertension; M48.061 Spinal stenosis, lumbar region without neurogenic claudication; E78.5 Hyperlipidemia, unspecified; M47.9 Spondylosis, unspecified; Z95.5 Presence of coronary angioplasty implant and graft; K21.9 Gastro-esophageal reflux disease without esophagitis; Z86.010 Personal history of colon polyps; Z98.1 Arthrodesis status; E11.65 Type 2 diabetes mellitus with hyperglycemia; E78.00 Pure hypercholesterolemia, unspecified; M47.812 Spondylosis without myelopathy or radiculopathy, cervical region; Z79.82 Long term (current) use of aspirin; Z79.84 Long term (current) use of oral hypoglycemic drugs; Z79.899 Other long term (current) drug therapy
CPT/HCPCS: 96366 ×3; 96376; 96365; 96367; 99285; 36415; 93005; 80061; 80053; 82550; 82553; 83735; 84484; 85025; 85610; 85730 ×2; 83036; 71046; G0378 ×2; J1644 ×2; J3475

== ENCOUNTER → 2018-04-21 | Outpatient (CLI) | payer MEDICARE ==
[2018-04-20 13:36] VITALS: BMI 29.5
[2018-04-21 12:25] VITALS: BP 139/75; PULSE 64; RESP 16
--- NOTE | 2018-04-21 14:27 | P.PN ---
Subjective Progress Note Date: 04/21/18 Vincenzo presents today for follow-up exam. He continues to have low back pain. He is status post lumbar fusion in January 2018. He continues have pain across his low back into his lower extremities. His pain is worse with sitting for prolonged period or standing up from seated position. He denies any hip pain. He has significantly improved radicular symptoms down his left leg which he had before surgery. He has been in physical therapy was stopped doing all the exercises. He is not working at this time. Denies any bowel or bladder incontinence. Denies any new onset weakness in his lower extremity is. Continues use medication only as needed. Objective - Vital Signs Vital signs: Vital Signs Temp Pulse 64 04/21/18 12:18 Resp 16 04/21/18 12:18 BP 139/75 04/21/18 12:18 Pulse Ox 96 04/21/18 12:18 Intake & Output 04/20/18 04/21/18 04/21/18 18:59 06:59 18:59 Weight 90.718 kg - Exam General: Awake and alert oriented 3 no distress Respiratory exam: No audible wheezing no accessory muscle usage Cardiovascular exam: regular rate, palpable bilateral pulses, no lower extremity edema Abdominal exam: No distention nontender to palpation Cervical spine: Normal alignment, Spurling's negative, facet loading negative Lumbar spine: Loss of lumbar lordosis, surgical scar well-healed normal alignment, tender to palpation over bilateral paraspinal muscles, facet loading is positive bilaterally. Straight leg raise is negative. Sacroiliac joints: Patient has tenderness to palpation over bilateral SI joints. He has positive SI joint compression. Gaenslen test is positive bilateral. Nhi's test positive bilateral. He has no pain with internal and external rotation of the hip joints. Neuro exam: Normal sensation in bilateral upper extremities, deep tendon reflexes are 2+ bilateral upper extremities. Normal sensation in bilateral lower extremities. Deep tendon reflexes are 1+ in lower extremities Psych exam: Cooperative, appropriate mood Assessment and Plan Assessment: #1 lumbar postlaminectomy #2 sacroiliitis Plan: After examination the patient and review of medical records and imaging. I believe the patient has significant sacroiliitis. I advised him that we should try a sacroiliac joint injection. I discussed with him potentially doing a rhizotomy to the sacroiliac joint if he has good relief.
== END ==
LOC: PNWHC3 12:03
PROVIDERS: ATTEND Hospitalist
DX: M96.1 Postlaminectomy syndrome, not elsewhere classified (principal); M46.1 Sacroiliitis, not elsewhere classified; Z98.1 Arthrodesis status
CPT/HCPCS: 99211

== ENCOUNTER 2018-05-04 09:12 | Day surgery (SDC) | payer MEDICARE ==
[2018-05-04] MEDS ORDERED: LACTATED RINGERS 1,000 ML IV ONE (10:53)
[2018-05-04] MEDS ORDERED: LIDOCAINE 1% 20 ML VIAL (10MG/ML) FOR IV START INTRADERMA ONE (10:53)
[2018-05-04 10:55] LABS: Glucose,Whole Blood 193 mg/dL (75-99)
[2018-05-04 11:02] VITALS: RESP 16; TEMP 97
--- NOTE | 2018-05-04 11:39 | P.PCN ---
Date of Procedure: 05/04/18 Procedure(s) Performed: Procedure= bilateral sacral iliac joints steroid injection under fluoroscopy guidance Preoperative diagnosis= 1-sacroiliitis 2-lumbar failed back surgery syndrome Postoperative diagnosis=1-sacroiliitis 2-lumbar failed back surgery syndrome Complication = none Condition= stable Fluoroscopy time = seconds Anesthesia= moderate sedation with intravenous Versed 2 mg , and fentanyl 50 micrograms and local infiltration with lidocaine 1% 4 mL Indication for the procedure= patient complaining of low back pain , examination was positive for severe tenderness over the sacroiliac joints bilaterally and patient diagnosed with sacroiliitis, for this reason he/ she was good candidate for sacroiliac joint steroid injection. Description of the procedure= procedure risk and benefits discussed with the patient, including but not limited, risk of infection and bleeding, and ALLERGIC reaction to the medication and not complete pain relief and patient agreed with the preceding patient taken to the operating room, placed in prone position or standard monitors applied to the patient then after induction of anesthesia back prepped with chlorhexidine 3 times , Then under strict sterile technique, first I did the right sacroiliac joint the which was identified under fluoroscopy guidance been local infiltration of the skin and subcu interstitial with lidocaine 1% then 22-gauge Quincke Needle advanced slowly under fluoroscopy and placed in the right sacroiliac joint needle placement confirmed with AP and oblique and lateral view and after appropriate needle placement confirmed and after negative aspiration, or heme , then Ropivacaine 0.5% 3 mL, and 20 mg of Kenalog mixed together and injected in the right sacroiliac joint after negative aspiration patient tolerated the procedure well without any complication. Then the left sacroiliac joint steroid injection done under strict sterile technique local infiltration of the skin and subcu interstitial at the location of the left sacroiliac joint then a 22-gauge Quincke Needle advanced slowly under fluoroscopy time placed in the left sacroiliac joint, needle placement confirmed with AP and oblique and lateral view then after appropriate needle placement confirmed and after negative aspiration 0.5% Marcaine 3 mL and 20 mg of Kenalog injected in the left sacroiliac joint after negative aspiration patient tolerated the procedure well that any complications and she will follow up in clinic 3 weeks
[2018-05-04] MEDS ORDERED: IV FLUID CONTINUATION 600 ML IV ONE (11:50)
[2018-05-04 12:02] VITALS: BP 118/70; PULSE 57
[2018-05-04 12:05] LABS: Glucose,Whole Blood 201 mg/dL (75-99)
--- NOTE | 2018-05-04 12:28 | FL ---
EXAMINATION TYPE: FL guided pain mgmt statistic DATE OF EXAM: 05/04/2018 CLINICAL HISTORY: Sacroiliac pain. TECHNIQUE: Fluoroscopy. COMPARISON: None. FINDINGS: Fluoroscopic guidance was provided during pain relief procedure performed by Dr. Vaca . A total of 15 seconds of fluoroscopic time was utilized during the procedure and two spot images a re acquired. Images acquired shows needle localization of the sacroiliac joint. IMPRESSION: As Above.
== END 2018-05-04 12:19 | disposition home or self-care (01) ==
LOC: ORPAIN 09:12
PROVIDERS: ATTEND Specialist
DX: M96.1 Postlaminectomy syndrome, not elsewhere classified (principal); M46.1 Sacroiliitis, not elsewhere classified; I25.10 Atherosclerotic heart disease of native coronary artery without angina pectoris; I10 Essential (primary) hypertension; E11.9 Type 2 diabetes mellitus without complications
CPT/HCPCS: J2250; J3301; J3010; G0260

== ENCOUNTER 2018-05-19 09:36 | Day surgery (SDC) | payer MEDICARE ==
[2018-05-13 14:59] VITALS: BMI 28.9
[~2018-05-19 09:36] MED LIST: SODIUM CHLORIDE 0.9% 500 ML 500 ML IV SCH
[2018-05-19 10:01] VITALS: RESP 16; TEMP 97.6
[2018-05-19] MEDS ORDERED: LACTATED RINGERS 1,000 ML IV ONE (10:01)
[2018-05-19 10:05] LABS: Glucose,Whole Blood 198 mg/dL (75-99)
[2018-05-19] MEDS ORDERED: IV FLUID CONTINUATION 1,000 ML IV ONE (10:25)
[2018-05-19 10:44] VITALS: BP 110/66; PULSE 61
--- NOTE | 2018-05-19 11:29 | FL ---
EXAMINATION TYPE: FL guided pain mgmt statistic DATE OF EXAM: 05/19/2018 CLINICAL HISTORY: Sacroiliac joint pain. TECHNIQUE: Fluoroscopy. COMPARISON: None. FINDINGS: Fluoroscopic guidance was provided during pain relief procedure performed by Dr. Casillas . A total of 4 seconds of fluoroscopic time was utilized during the procedure and two spot images are acquired. Images acquired shows needle localization of the bilateral sacroiliac joints. IMPRESSION: As Above.
--- NOTE | 2018-05-19 13:38 | P.PCN ---
Date of Procedure: 05/19/18 Surgeon: Kit Casillas Description of Procedure: DESCRIPTION OF PROCEDURE(S): Preoperative diagnoses: Bilateral sacroilitis Postoperative diagnoses: Bilateral sacroilitis. Procedure: Bilateral sacroiliac joint steroid injection under fluoroscopic guidance. Surgeon: Kit Casillas MD Anesthesia: IV sedation per hospital guidelines. 2 mg of midazolam and 100 micrograms of fentanyl were used. EBL: None Procedure indication: The patient had a history of severe chronic low back pain, diagnosed with bilateral sacroiliitis unresponsive to conservative treatment. He reports that he has had significant reduction of his pain from previous sacral iliac joint injections. Procedure description: The patient was seen and identified in the preoperative holding area, risks and benefits and alternative of the procedure and possible complications discussed with the patient, and he agreed with the preceding, patient signed the consent, an IV was started, and vital signs were monitored and were stable throughout the procedure, patient was placed in the prone position or table and the lumbosacral area was prepped and draped with a sterile fashion, vital signs were closely monitored during the procedure, the fluoroscopy camera was placed in the contralateral oblique view on the right sacroiliac joint and the lower part of the joint was identified a 2 mL then a 25-gauge Quincke-type spinal needle advanced slowly under fluoroscopy and placed in the posterior and inferior border of the right sacroiliac joint, placement confirmed with AP and lateral view, and after appropriate needle placement confirmed and after negative aspiration for heme and CSF and there was , 3 ml of Marcaine 0.5% and 40 mg of Depo-Medrol injected after negative aspiration, no paresthesia during the injection, no resistance to injection, and the needle was removed. The entire same procedure was repeated for the left sacroiliac joint Patient tolerated the procedure well without any complication. The patient returned to supine position after the back was cleaned and a Band- Aid applied, the patient transported to recovery room in stable condition and he was monitored for 30 minutes before he was discharged home and then patient was reexamined before going home and patient was discharged in stable condition and patient will follow up with the pain clinic in a few weeks
== END 2018-05-19 11:02 | disposition home or self-care (01) ==
LOC: ORPAIN 09:36
PROVIDERS: ATTEND Pain Medicine Pain Medicine
DX: G89.29 Other chronic pain (principal); M46.1 Sacroiliitis, not elsewhere classified
CPT/HCPCS: J2250; J1030; J3010; G0260

== ENCOUNTER → 2018-05-29 | Outpatient (CLI) | payer MEDICARE ==
[2018-05-29 12:01] LABS: Vitamin D 25 Hydroxy 31.3 ng/mL (30.0-100.0)
[2018-05-29 12:02] LABS: Albumin 4.8 g/dL (3.80-4.90); Albumin/Globulin Ratio 2.18 (1.60-3.17); Anion Gap 8.9 mmol/L (4.00-12.00); Calcium 9.2 mg/dL (8.7-10.3); Carbon Dioxide 28.1 mmol/L (21.6-31.8); Globulin 2.2 g/dL (1.6-3.3); LDL Cholesterol,Calculated 85.4 mg/dL (0.0-131.0); Total Bilirubin 0.8 mg/dL (0.3-1.2); VLDL Calculation 29.6 mg/dL (5.00-40.00)
[2018-05-29 12:27] LABS: Vitamin B12 >4000.0 pg/mL (211-911)
[2018-05-29 15:06] LABS: Hemoglobin A1C 9.1 % (4.0-6.0)
== END ==
LOC: LABWHC1 07:05
PROVIDERS: ATTEND Internal Medicine Endocrinology, Diabetes & Metabolism
DX: E11.65 Type 2 diabetes mellitus with hyperglycemia (principal); E53.8 Deficiency of other specified B group vitamins; E55.9 Vitamin D deficiency, unspecified
CPT/HCPCS: 36415; 80053; 80061; 82043; 82306; 82570; 82607; 83036

== ENCOUNTER 2018-06-07 11:04 | Observation (INO) | payer MEDICARE ==
[2018-06-07] MEDS ORDERED: SODIUM CHLORIDE 0.9% 500 ML 500 ML IV STA (11:24)
[2018-06-07] MEDS ORDERED: ALBUTEROL NEBULIZED 2.5 MG/3 ML INHALATION STA (11:28)
[2018-06-07] MEDS ORDERED: IPRATROPIUM-ALBUTEROL 3 ML NEB INHALATION STA (11:28)
[2018-06-07] MEDS ORDERED: DEXAMETHASONE SOD PHOSPHATE 10 MG/ML 1 ML VIAL IV STA (11:28)
--- NOTE | 2018-06-07 11:32 | ED ---
General Adult HPI - General Chief complaint: Chest Pain Stated complaint: Chest pain, poss FLU Time Seen by Provider: 06/07/18 11:18 Source: patient, RN notes reviewed, old records reviewed Mode of arrival: ambulatory Limitations: no limitations - History of Present Illness Initial comments: 73 -year-old male presenting for evaluation of cough and dyspnea. Patient reports increasing chest tightness associated with the symptoms. He was diagnosed with influenza by nasal swab on . He's had myalgias, nausea diarrhea. He was prescribed azithromycin which she has been taking for the past several days. Reports ongoing fevers. Cough productive of yellow-brown sputum. Patient has history of CAD with previous stenting. He is having central chest pain associated with his symptoms. This is nonradiating. No diaphoresis. No abdominal pain. No lower extremity swelling. - Related Data Home Medications Medication Instructions Recorded Confirmed Quinapril HCl 40 mg PO DAILY 01/17/14 05/13/18 glipiZIDE [Glucotrol] 10 mg PO BID 01/17/14 05/13/18 amLODIPine BESYLATE [Norvasc] 10 mg PO DAILY 04/19/14 05/13/18 Atorvastatin [Lipitor] 40 mg PO DAILY 08/08/14 05/13/18 Pregabalin [Lyrica] 150 mg PO BID 06/21/16 05/13/18 Omeprazole 20 mg PO DAILY 08/28/17 05/13/18 HYDROcodone/APAP 7.5-325MG [[place] 1 tab PO QID PRN 10/16/17 05/19/18 7.5-325] Aspirin [Adult Low Dose Aspirin EC] 81 mg PO DAILY 03/02/18 05/19/18 Nitroglycerin Sl Tabs [Nitrostat] 0.4 mg SUBLINGUAL Q5M PRN 03/02/18 05/13/18 Ibuprofen [Motrin] 400 mg PO Q6HR PRN 04/21/18 05/19/18 Ferrous Sulfate [Feosol] 325 mg PO DAILY 05/13/18 05/13/18 Magnesium 200 mg PO DAILY 05/13/18 05/13/18 Previous Rx's Medication Instructions Recorded metFORMIN HCL 1,000 mg PO BID #0 10/18/17 Allergies Allergy/AdvReac Type Severity Reaction Status Date / Time No Known Allergies Allergy Verified 06/07/18 11:17 Review of Systems ROS Statement: Those systems with pertinent positive or pertinent negative responses have been documented in the HPI. ROS Other: All systems not noted in ROS Statement are negative. Past Medical History Past Medical History: Coronary Artery Disease (CAD), Chest Pain / Angina, Diabetes Mellitus, GERD/Reflux, Hyperlipidemia, Hypertension Additional Past Medical History / Comment(s): back pain History of Any Multi-Drug Resistant Organisms: None Reported Past Surgical History: Back Surgery, Heart Catheterization With Stent, Orthopedic Surgery Additional Past Surgical History / Comment(s): neck fusion, back fusion, carpel tunnel Past Anesthesia/Blood Transfusion Reactions: No Reported Reaction Date of Last Stent Placement:: 2011 Past Psychological History: No Psychological Hx Reported Smoking Status: Never smoker Past Alcohol Use History: None Reported Past Drug Use History: None Reported - Past Family History Father Family Medical History: Myocardial Infarction ([place]) Additional Family Medical History / Comment(s): passed 72 Mother Family Medical History: Myocardial Infarction ([place]) Additional Family Medical History / Comment(s): passed 77 Brother(s) Family Medical History: Myocardial Infarction ([place]) Additional Family Medical History / Comment(s): 3 brothers passed from [place] in 50's General Exam Limitations: no limitations General appearance: alert, in no apparent distress Head exam: Present: atraumatic, normocephalic Eye exam: Present: normal appearance, PERRL ENT exam: Present: mucous membranes dry Neck exam: Present: normal inspection. Absent: tenderness, meningismus Respiratory exam: Present: wheezes, rhonchi, decreased breath sounds. Absent: respiratory distress Cardiovascular Exam: Present: regular rate, normal rhythm GI/Abdominal exam: Present: soft. Absent: distended, tenderness, guarding Extremities exam: Present: normal inspection, normal capillary refill. Absent: pedal edema Neurological exam: Present: alert, oriented X3, CN II-XII intact. Absent: motor sensory deficit Psychiatric exam: Present: normal affect, normal mood Skin exam: Present: warm, dry, intact. Absent: cyanosis, diaphoretic Course Vital Signs 06/07/18 06/07/18 06/07/18 11:14 11:49 11:50 Temperature 98.1 F Pulse Rate 74 60 61 Pulse Rate [ Bilateral Desk Top Publisher ] Respiratory 20 15 16 Rate Blood Pressure 128/78 O2 Sat by Pulse 97 96 Oximetry 06/07/18 06/07/1806/07/19 12:00 12:10 12:20 Temperature Pulse Rate 61 62 60 Pulse Rate [ 71 Bilateral Desk Top Publisher ] Respiratory 16 18 20 Rate Blood Pressure 121/72 121/72 121/72 O2 Sat by Pulse 96 95 Oximetry 06/07/18 06/07/18 06/07/18 12:30 12:36 12:40 Temperature Pulse Rate 60 60 63 Pulse Rate [ Bilateral Desk Top Publisher ] Respiratory 18 18 Rate Blood Pressure 121/72 121/72 O2 Sat by Pulse 97 100 Oximetry 06/07/18 06/07/18 06/07/18 12:49 12:50 13:00 Temperature Pulse Rate 76 72 Pulse Rate [ Bilateral Desk Top Publisher ] Respiratory 20 Rate Blood Pressure 121/72 121/72 O2 Sat by Pulse 92 L Oximetry 06/07/18 06/07/18 06/07/18 13:10 13:20 13:23 Temperature Pulse Rate 71 71 70 Pulse Rate [ Bilateral Desk Top Publisher ] Respiratory 16 16 16 Rate Blood Pressure 121/72 121/72 114/65 O2 Sat by Pulse 94 L 95 95 Oximetry 06/07/18 13:30 Temperature Pulse Rate 73 Pulse Rate [ Bilateral Desk Top Publisher ] Respiratory 16 Rate Blood Pressure 114/65 O2 Sat by Pulse 95 Oximetry EKG Findings - EKG Comments: EKG Findings:: EKG: Normal sinus rhythm, rate of 63, MD interval 162, QRS duration 88, QTC 41, no ST segment changes, T waves are upright Medical Decision Making - Medical Decision Making 73-year-old male presenting with cough and dyspnea. Central chest tightness. Workup in emergency departments reveals normal CBC, normal CMP, troponin and BNP are negative chest x-ray negative for focal pneumonia. Patient has reactive airway, wheezing or rhonchi throughout. He remains asymptomatic after albuterol, Atrovent, Decadron. Will be kept in observation for continue symptomatically treatment. Case discussed with Dr. Monreal will admit. - Lab Data Result diagrams: 06/07/18 12:00 06/07/18 12:00 Lab Results 06/07/18 06/07/18 06/07/18 Range/Units 12:00 12:00 12:00 WBC 3.9 (3.8-10.6) k/uL RBC 4.76 (4.30-5.90) m/uL Hgb 13.3 (13.0-17.5) gm/dL Hct 38.8 L (39.0-53.0) % MCV 81.6 (80.0-100.0) fL MCH 28.0 (25.0-35.0) pg MCHC 34.3 (31.0-37.0) g/dL RDW 16.7 H (11.5-15.5) % Plt Count 185 (150-450) k/uL Neutrophils % 64 % Lymphocytes % 22 % Monocytes % 7 % Eosinophils % 3 % Basophils % 0 % Neutrophils # 2.5 (1.3-7.7) k/uL Lymphocytes # 0.9 L (1.0-4.8) k/uL Monocytes # 0.3 (0-1.0) k/uL Eosinophils # 0.1 (0-0.7) k/uL Basophils # 0.0 (0-0.2) k/uL Anisocytosis Slight PT (9.0-12.0) sec INR (<1.2) APTT (22.0-30.0) sec Sodium 135 L (137-145) mmol/L Potassium 5.2 H (3.5-5.1) mmol/L Chloride 101 (98-107) mmol/L Carbon Dioxide 23 (22-30) mmol/L Anion Gap 11 mmol/L BUN 26 H (9-20) mg/dL Creatinine 1.13 (0.66-1.25) mg/dL Est GFR (CKD-EPI)AfAm 74 (>60 ml/min/1.73 sqM) Est GFR (CKD-EPI)NonAf 64 (>60 ml/min/1.73 sqM) Glucose 157 H (74-99) mg/dL Plasma Lactic Acid Hossein (0.7-2.0) mmol/L Calcium 8.9 (8.4-10.2) mg/dL Magnesium 1.7 (1.6-2.3) mg/dL Total Bilirubin 0.4 (0.2-1.3) mg/dL AST 48 (17-59) U/L ALT 65 (21-72) U/L Alkaline Phosphatase 71 (38-126) U/L Troponin I (0.000-0.034) ng/mL NT-Pro-B Natriuret Pep 56 pg/mL Total Protein 6.9 (6.3-8.2) g/dL Albumin 4.1 (3.5-5.0) g/dL 06/07/18 06/07/18 06/07/18 Range/Units 12:00 12:00 12:00 WBC (3.8-10.6) k/uL RBC (4.30-5.90) m/uL Hgb (13.0-17.5) gm/dL Hct (39.0-53.0) % MCV (80.0-100.0) fL MCH (25.0-35.0) pg MCHC (31.0-37.0) g/dL RDW (11.5-15.5) % Plt Count (150-450) k/uL Neutrophils % % Lymphocytes % % Monocytes % % Eosinophils % % Basophils % % Neutrophils # (1.3-7.7) k/uL Lymphocytes # (1.0-4.8) k/uL Monocytes # (0-1.0) k/uL Eosinophils # (0-0.7) k/uL Basophils # (0-0.2) k/uL Anisocytosis PT 9.7 (9.0-12.0) sec INR 0.9 (<1.2) APTT 24.7 (22.0-30.0) sec Sodium (137-145) mmol/L Potassium (3.5-5.1) mmol/L Chloride (98-107) mmol/L Carbon Dioxide (22-30) mmol/L Anion Gap mmol/L BUN (9-20) mg/dL Creatinine (0.66-1.25) mg/dL Est GFR (CKD-EPI)AfAm (>60 ml/min/1.73 sqM) Est GFR (CKD-EPI)NonAf (>60 ml/min/1.73 sqM) Glucose (74-99) mg/dL Plasma Lactic Acid Hossein 1.2 (0.7-2.0) mmol/L Calcium (8.4-10.2) mg/dL Magnesium (1.6-2.3) mg/dL Total Bilirubin (0.2-1.3) mg/dL AST (17-59) U/L ALT (21-72) U/L Alkaline Phosphatase (38-126) U/L Troponin I <0.012 (0.000-0.034) ng/mL NT-Pro-B Natriuret Pep pg/mL Total Protein (6.3-8.2) g/dL Albumin (3.5-5.0) g/dL Disposition Clinical Impression: Reactive airway disease, Bronchitis, Dehydration Disposition: ADMITTED IP TO THIS HOSP Condition: Stable Is patient prescribed a controlled substance at d/c from ED?: No Referrals: Rufus Monreal MD [Primary Care Provider] - 1-2 days Decision to Admit Reason: Admit from EC Decision Date: 06/07/18 Decision Time: 14:08
[2018-06-07 12:32] LABS: Anisocytosis Slight; Basophils % (A) 0 %; Eosinophils # (A) 0.1 k/uL (0-0.7); Eosinophils % (A) 3 %; HCT 38.8 % (39.0-53.0); HGB 13.3 gm/dL (13.0-17.5); Lymphocytes # (A) 0.9 k/uL (1.0-4.8); Lymphocytes % (A) 22 %; MCHC 34.3 g/dL (31.0-37.0); MCV 81.6 fL (80.0-100.0); Mean Platelet Volume 9.8; Monocytes # (A) 0.3 k/uL (0-1.0); Monocytes % (A) 7 %; Neutrophils # (A) 2.5 k/uL (1.3-7.7); Neutrophils % (A) 64 %; Platelet Count 185 k/uL (150-450); RBC 4.76 m/uL (4.30-5.90); RDW 16.7 % (11.5-15.5); WBC 3.9 k/uL (3.8-10.6)
[2018-06-07 12:41] LABS: Albumin 4.1 g/dL (3.5-5.0); Calcium 8.9 mg/dL (8.4-10.2); Magnesium 1.7 mg/dL (1.6-2.3); Potassium 5.2 mmol/L (3.5-5.1); Total Bilirubin 0.4 mg/dL (0.2-1.3); Total Protein 6.9 g/dL (6.3-8.2)
[2018-06-07 12:42] LABS: INR 0.9 (<1.2); Partial Thromboplastin Time 24.7 sec (22.0-30.0); Prothrombin Time 9.7 sec (9.0-12.0)
--- NOTE | 2018-06-07 13:29 | XR ---
EXAMINATION TYPE: XR chest 2V DATE OF EXAM: 06/07/2018 HISTORY: Chest Pain. REFERENCE: Previous study dated 03/02/2018. FINDINGS: There has been a previous ACDF involving the mid cervical spine. Heart size upper limits of normal. The lungs are clear. Pleural spaces are clear. IMPRESSION: NO ACUTE INTRATHORACIC ABNORMALITY.
[2018-06-07] MEDS ORDERED: IPRATROPIUM-ALBUTEROL 3 ML NEB INHALATION PRN (14:08)
[2018-06-07] MEDS ORDERED: NITROGLYCERIN SL TABS 0.4 MG TAB SUBLINGUAL PRN (15:38)
[2018-06-07] MEDS ORDERED: IBUPROFEN 400 MG TAB PO PRN (15:38)
[2018-06-07] MEDS ORDERED: HYDROcodone/APAP 7.5-325MG 1 EACH TAB PO PRN (15:39)
[2018-06-07 17:06] LABS: Glucose,Whole Blood 311 mg/dL (75-99)
[2018-06-07] MEDS: SODIUM CHLORIDE 0.9% 1,000 ML IV SCH ×2 (17:07→20:08)
[2018-06-07] MEDS: methylPREDNISolone SOD SUCCI 125 MG/2 ML VIAL IV SCH ×2 (17:08→20:08)
[2018-06-07] MEDS: amLODIPine 10 MG TAB PO SCH (17:08)
[2018-06-07] MEDS: PANTOPRAZOLE 40 MG TABLET PO SCH (17:08)
[2018-06-07] MEDS: glipiZIDE 10 MG TAB PO SCH (17:08)
[2018-06-07] MEDS: ATORVASTATIN 40 MG TAB PO SCH (17:08)
[2018-06-07] MEDS: INSULIN ASPART (NovoLOG) 100 UNIT/ML VIAL SQ SCH ×2 (17:27→20:13)
--- NOTE | 2018-06-07 19:19 | P.HPIM ---
History of Present Illness chief complaint Continued cough with congestion and chest pain. History of present illness The patient is a 73-year-old gentleman who has had persistent cough associated with shortness of breathand weakness. This started to approximately 6 days previous. Patient recently in office and started on azithromycin. He was not wheezing at that time. Apparently became more wheezy and short of breath. Cough with discolored phlegm. Intermittent chills and fevers at home. Anterior chest pain with coughing and deep breathing. No hemoptysis. past medical history Positive for coronary artery disease. Previous catheterization back in 2015. More recent catheterization in October 2017. Moderate disease of the left circumflex and right coronary artery. Mild disease in the LAD. Normal LV size and function. Patient is being treated for hypertension, diabetes and hyperlipidemia. Cervical stenosis and previous surgery/protrusion at C4-C5 Lumbar spinal stenosis with previous surgeries and also injection back in May of this year. 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 Surgical history includes the cervical and lumbar surgeries along with carpal tunnel syndrome surgery and also previous cardiac stenting back in 2011. Review of systems As in history of present illness. No unusual headaches or visual disturbances. patient past had some intermittent nausea. He also had some diarrhea which is cleared. No abdominal pain. No dysuria. No hematuria. at times decreased urinary stream. No unusual edema. No known ALLERGIES Home medications metformin thousand milligrams twice a day Glipizide 10 mg twice a day Amlodipine 10 mg daily Quinapril 40 mg daily Omeprazole 20 mg daily Nitroglycerin 0.4 mg and we will when necessary pain Magnesium 200 mg daily Ibuprofen 400 mg every 6 hours when necessary [place] 7.5-325 one 4 times a day for pain Ferrous sulfate 325 daily Atorvastatin 40 mg daily Aspirin 81 mg daily. Family history Positive for coronary artery disease. Patient with 3 siblings with coronary artery disease and 2 of them at the age of 50 and 60. social history Patient lives locally with his . There is no history of any excessive alcohol intake and no smoking history. vital signs: temperature 90.8 with a pulse of 72 and respirations 16. Blood pressure 154/66 Head is atraumatic. Extraocular movements are intact. Neck his not stiff. No adenopathy, thyromegaly or bruits detected. Diffuse inspiratory wheezing with rhonchi present. Heart tones were regular without murmurs or rubs Abdomen mildly obese but soft and nontender without organomegaly. No unusual edema. Genital and rectal exam deferred. Neurologically he is alert and oriented. Cranial nerves intact. No focal weakness noted. laboratory White count is 2.9 with a hemoglobin 13.3 and a platelet count of 185. INR was 0.9 with a PTT of 24.7. Sodium is 135 with potassium 5.2. CO2 content was 23. BUN 26 with a creatinine 1.13 given him a GFR 64. Initial blood sugar was 157 but did rise to 311 with corticosteroids. liver function tests were good. Albumin 4.1. Troponin 0.012 and pro BNP 56. Chest x-ray Official report was unremarkable although does appear to show some air bronchograms in the left lower lobe. EKG Sinus rhythm without acute ischemic changes. Impressions exacerbation of asthma with moderate symptomatologyassociated with wheezing. Anterior chest pain. Cough and phlegm production. Weakness. Coronary artery disease with history of stenting. 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 Continue antibiotics. Respiratory treatments. We'll also continue patient's home medications for control of his chronic medical issues. Past Medical History Past Medical History: Coronary Artery Disease (CAD), Chest Pain / Angina, Diabetes Mellitus, GERD/Reflux, Hearing Disorder / Deafness, Hyperlipidemia, Hypertension Additional Past Medical History / Comment(s): back pain History of Any Multi-Drug Resistant Organisms: None Reported Past Surgical History: Back Surgery, Heart Catheterization With Stent, Orthopedic Surgery Additional Past Surgical History / Comment(s): neck fusion, back fusion, carpel tunnel Past Anesthesia/Blood Transfusion Reactions: No Reported Reaction Date of Last Stent Placement:: 2011 Past Psychological History: No Psychological Hx Reported Smoking Status: Never smoker Past Alcohol Use History: None Reported Past Drug Use History: None Reported - Past Family History Father Family Medical History: Myocardial Infarction ([place]) Additional Family Medical History / Comment(s): passed 72 Mother Family Medical History: Myocardial Infarction ([place]) Additional Family Medical History / Comment(s): passed 77 Brother(s) Family Medical History: Myocardial Infarction ([place]) Additional Family Medical History / Comment(s): 3 brothers passed from [place] in 50's Medications and Allergies Home Medications Medication Instructions Recorded Confirmed Type Quinapril HCl 40 mg PO DAILY 01/17/14 06/07/18 History glipiZIDE [Glucotrol] 10 mg PO BID 01/17/14 06/07/18 History amLODIPine BESYLATE [Norvasc] 10 mg PO DAILY 04/19/14 06/07/18 History Atorvastatin [Lipitor] 40 mg PO DAILY 08/08/14 06/07/18 History Pregabalin [Lyrica] 150 mg PO BID 06/21/16 06/07/18 History Omeprazole 20 mg PO DAILY 08/28/17 06/07/18 History HYDROcodone/APAP 7.5-325MG [[place] 1 tab PO QID PRN 10/16/17 06/07/18 History 7.5-325] metFORMIN HCL 1,000 mg PO BID #0 10/18/17 06/07/18 Rx Aspirin [Adult Low Dose Aspirin EC] 81 mg PO DAILY 03/02/18 06/07/18 History Nitroglycerin Sl Tabs [Nitrostat] 0.4 mg SUBLINGUAL Q5M PRN 03/02/18 06/07/18 History Ibuprofen [Motrin] 400 mg PO Q6HR PRN 04/21/18 06/07/18 History Ferrous Sulfate [Feosol] 325 mg PO DAILY 05/13/18 06/07/18 History Magnesium 200 mg PO DAILY 05/13/18 06/07/18 History Allergies Allergy/AdvReac Type Severity Reaction Status Date / Time No Known Allergies Allergy Verified 06/07/18 14:31 Physical Exam Vitals: Vital Signs Temp Pulse Pulse Pulse Resp BP BP 06/07/18 14:55 98.0 F 72 16 154/66 06/07/18 14:47 98.6 F 06/07/18 14:41 68 18 145/71 06/07/18 13:30 73 16 114/65 06/07/18 13:23 70 16 114/65 06/07/18 13:20 71 16 121/72 06/07/18 13:10 71 16 121/72 06/07/18 13:00 121/72 06/07/18 12:50 72 20 121/72 06/07/18 12:49 76 06/07/18 12:40 63 18 121/72 06/07/18 12:36 60 06/07/18 12:30 60 18 121/72 06/07/18 12:20 60 20 121/72 06/07/18 12:10 62 18 121/72 06/07/18 12:00 61 71 16 121/72 06/07/18 11:50 61 16 06/07/18 11:49 60 15 06/07/18 11:14 98.1 F 74 20 128/78 Pulse Ox 06/07/18 14:55 95 06/07/18 14:47 06/07/18 14:41 96 06/07/18 13:30 95 06/07/18 13:23 95 06/07/18 13:20 95 06/07/18 13:10 94 L 06/07/18 13:00 06/07/18 12:50 92 L 06/07/18 12:49 06/07/18 12:40 100 06/07/18 12:36 06/07/18 12:30 97 06/07/18 12:20 06/07/18 12:10 95 06/07/18 12:00 96 06/07/18 11:50 96 06/07/18 11:49 06/07/18 11:14 97 Intake and Output 06/07/18 06/07/18 06/07/18 06:59 14:59 22:59 Other: Voiding Method Toilet Weight 88.451 kg Results CBC & Chem 7: 06/07/18 12:00 06/07/18 12:00 Labs: Abnormal Lab Results - Last 24 Hours (Table) 06/07/18 06/07/18 06/07/18 Range/Units 12:00 12:00 17:04 Hct 38.8 L (39.0-53.0) % RDW 16.7 H (11.5-15.5) % Lymphocytes # 0.9 L (1.0-4.8) k/uL Sodium 135 L (137-145) mmol/L Potassium 5.2 H (3.5-5.1) mmol/L BUN 26 H (9-20) mg/dL Glucose 157 H (74-99) mg/dL POC Glucose (mg/dL) 311 H (75-99) mg/dL Thrombosis Risk Factor Assmnt - Choose All That Apply Any of the Below Risk Factors Present?: No Other Risk Factors: Yes Each Risk Factor Represents 2 Points: Age 61-74 years Thrombosis Risk Factor Assessment Total Risk Factor Score: 2 Thrombosis Risk Factor Assessment Level: Low Risk
[2018-06-07] MEDS: IPRATROPIUM-ALBUTEROL 3 ML NEB INHALATION SCH ×2 (19:50→19:53)
[2018-06-07] MEDS: PREGABALIN 75 MG CAP PO SCH (20:07)
[2018-06-07 20:22] LABS: Glucose,Whole Blood 410 mg/dL (75-99)
[2018-06-07 23:20] LABS: Glucose,Whole Blood 271 mg/dL (75-99)
[2018-06-08] MEDS: methylPREDNISolone SOD SUCCI 125 MG/2 ML VIAL IV SCH (05:49)
[2018-06-08 06:56] LABS: Glucose,Whole Blood 237 mg/dL (75-99)
[2018-06-08] MEDS: IPRATROPIUM-ALBUTEROL 3 ML NEB INHALATION SCH (07:30)
[2018-06-08 07:37] VITALS: BP 148/70; RESP 18; TEMP 98.1
[2018-06-08 07:50] VITALS: PULSE 68
[2018-06-08] MEDS: INSULIN ASPART (NovoLOG) 100 UNIT/ML VIAL SQ SCH (07:54)
[2018-06-08] MEDS: glipiZIDE 10 MG TAB PO SCH (07:55)
[2018-06-08] MEDS: amLODIPine 10 MG TAB PO SCH (07:55)
[2018-06-08] MEDS: PANTOPRAZOLE 40 MG TABLET PO SCH (07:55)
[2018-06-08] MEDS: ATORVASTATIN 40 MG TAB PO SCH (07:55)
[2018-06-08] MEDS: PREGABALIN 75 MG CAP PO SCH (07:55)
[2018-06-08 08:27] LABS: Anion Gap 11 mmol/L; Blood Urea Nitrogen 20 mg/dL (9-20); Calcium 8.8 mg/dL (8.4-10.2); Carbon Dioxide 22 mmol/L (22-30); Chloride 102 mmol/L (98-107); Glucose 324 mg/dL (74-99); Potassium 4.5 mmol/L (3.5-5.1); Sodium 135 mmol/L (137-145)
--- NOTE | 2018-06-08 08:49 | P.DS ---
Providers Date of admission: 06/07/18 14:08 Attending physician: Rufus Monreal Primary care physician: Rufus Monreal The patient is a 73-year-old gentleman who presented with shortness of breath and persistent cough along with weakness that was not responding to outpatient antibiotics. Clinical exam revealed diffuse wheezing on presentation that did not clear up in the emergency room. The patient was placed on antibiotics along with his respiratory treatments and IV corticosteroids. His maintenance medications were continued. Initial labs revealed a white count of 3.9 and a hemoglobin of 13 and a platelet count of 185. Potassium was slightly elevated at 5.2. GFR was 64 with a BUN of 26 and a creatinine 1.13. Chest x-ray did not show evidence of infiltrate. EKG did not show ischemic changes. Normal sinus rhythm. Hospital course Patient did clear on the above listed treatment. This morning he is sitting up in bed. In no acute distress. Vital signs with temperature 98.1 with a pulse of 64 and respirations 18. Blood pressure 148/70. He is 96% saturated on room air. Lungs are generally clear this morning. Heart tones were regular. No neurological changes. Plan at this time is to discharge to home and continue his previous relisted home medications. He is to finish his course of azithromycin that he has at home. Prednisone taper dosage will be sent to his [facility]. He will be on a 40 mg orally 44 days then 20 mg orally for 4 days and then DC. Follow up in office during the week. He is to call if any questions concerns or problems. He will resume his previous home medications Metformin thousand milligrams twice a day Glipizide 10 mg twice a day Amlodipine 10 mg daily Quinapril 40 mg daily Lyrica 150 mg twice a day Omeprazole 20 mg daily Nitroglycerin sublingual 0.4 mg when necessary chest pain Magnesium 200 mg daily Ibuprofen 400 mg every 6 hours if needed for pain [place] 7.5-325 one 4 times a day when necessary as needed for chronic pain. Ferrous sulfate 325 daily Lipitor 40 mg daily Aspirin 81 mg daily. Diet and activities as tolerated Discharge diagnoses 1. Acute exacerbation of moderate asthma with wheezing and anterior chest pain associated with cough and phlegm production and weakness. 2. Hyperkalemia resolved 3. Dehydration resolved 4. Coronary artery disease with history of stenting 5. Hypertension 6. Type 2 diabetes with hyperglycemia secondary to corticosteroids 7. Cervical stenosis with previous surgery at C4-C5 8. Lumbar spinal stenosis with previous surgeries and lumbar injections 9. History of colonic polyps 10. Gastroesophageal reflux 11. 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 Patient Condition at Discharge: Stable Plan - Discharge Summary Discharge Rx Participant: No New Discharge Prescriptions: No Action glipiZIDE [Glucotrol] 10 mg PO BID Quinapril HCl 40 mg PO DAILY amLODIPine BESYLATE [Norvasc] 10 mg PO DAILY Atorvastatin [Lipitor] 40 mg PO DAILY Pregabalin [Lyrica] 150 mg PO BID Omeprazole 20 mg PO DAILY HYDROcodone/APAP 7.5-325MG [[place] 7.5-325] 1 tab PO QID PRN PRN Reason: Pain metFORMIN HCL 1,000 mg PO BID #0 Nitroglycerin Sl Tabs [Nitrostat] 0.4 mg SUBLINGUAL Q5M PRN PRN Reason: Chest Pain Aspirin [Adult Low Dose Aspirin EC] 81 mg PO DAILY Ibuprofen [Motrin] 400 mg PO Q6HR PRN PRN Reason: Pain Magnesium 200 mg PO DAILY Ferrous Sulfate [Feosol] 325 mg PO DAILY Discharge Medication List Quinapril HCl 40 mg PO DAILY 01/17/14 [History] glipiZIDE [Glucotrol] 10 mg PO BID 01/17/14 [History] amLODIPine BESYLATE [Norvasc] 10 mg PO DAILY 04/19/14 [History] Atorvastatin [Lipitor] 40 mg PO DAILY 08/08/14 [History] Pregabalin [Lyrica] 150 mg PO BID 06/21/16 [History] Omeprazole 20 mg PO DAILY 08/28/17 [History] HYDROcodone/APAP 7.5-325MG [[place] 7.5-325] 1 tab PO QID PRN 10/16/17 [History] metFORMIN HCL 1,000 mg PO BID #0 10/18/17 [Rx] Aspirin [Adult Low Dose Aspirin EC] 81 mg PO DAILY 03/02/18 [History] Nitroglycerin Sl Tabs [Nitrostat] 0.4 mg SUBLINGUAL Q5M PRN 03/02/18 [History] Ibuprofen [Motrin] 400 mg PO Q6HR PRN 04/21/18 [History] Ferrous Sulfate [Feosol] 325 mg PO DAILY 05/13/18 [History] Magnesium 200 mg PO DAILY 05/13/18 [History] Follow up Appointment(s)/Referral(s): Rufus Monreal MD [Primary Care Provider] - 1-2 days
[2018-06-08] MEDS ORDERED: AZITHROMYCIN 500 MG TAB PO SCH (09:00)
[2018-06-08] MEDS ORDERED: ASPIRIN 81 MG PO SCH (09:00)
[2018-06-08] MEDS ORDERED: LISINOPRIL 20 MG TAB PO SCH (09:00)
[2018-06-08] MEDS ORDERED: MAGNESIUM OXIDE 400 MG TAB PO SCH (12:00)
[2018-06-08] MEDS ORDERED: FERROUS SULFATE 325 MG TAB PO SCH (12:00)
[2018-06-09] MEDS ORDERED: metFORMIN 500 MG TAB PO SCH (21:00)
== END 2018-06-08 10:35 | disposition home or self-care (01) ==
LOC: EC 11:04 → 1SOBS 14:08
PROVIDERS: ADMIT Internal Medicine; ATTEND Internal Medicine
DX: J45.41 Moderate persistent asthma with (acute) exacerbation (principal); I25.10 Atherosclerotic heart disease of native coronary artery without angina pectoris; E87.5 Hyperkalemia; E86.0 Dehydration; E09.65 Drug or chemical induced diabetes mellitus with hyperglycemia; K21.9 Gastro-esophageal reflux disease without esophagitis; R53.1 Weakness; E78.5 Hyperlipidemia, unspecified; M47.9 Spondylosis, unspecified; M48.02 Spinal stenosis, cervical region; M48.061 Spinal stenosis, lumbar region without neurogenic claudication; I10 Essential (primary) hypertension; H91.90 Unspecified hearing loss, unspecified ear; T38.0X5A Adverse effect of glucocorticoids and synthetic analogues, initial encounter; Z95.5 Presence of coronary angioplasty implant and graft; Z95.1 Presence of aortocoronary bypass graft; Z79.82 Long term (current) use of aspirin; Z79.899 Other long term (current) drug therapy; Z79.84 Long term (current) use of oral hypoglycemic drugs; Z98.1 Arthrodesis status; Z86.010 Personal history of colon polyps; Z82.49 Family history of ischemic heart disease and other diseases of the circulatory system
CPT/HCPCS: 96375; 96376 ×2; 96361; 96374; 99285; 36415; 94640 ×3; 93005; 83880; 80053; 80048; 83605; 83735; 84484; 85025; 85610; 85730; 87040; 71046; G0378 ×2; J1100; J2930 ×2

== ENCOUNTER → 2018-06-24 | Outpatient (CLI) | payer MEDICARE ==
[2018-06-24 13:13] VITALS: BP 132/67; PULSE 67; RESP 18
--- NOTE | 2018-06-24 13:16 | P.PAINPG ---
Subjective Progress Note Date: 06/24/18 Principal diagnosis: Bilateral sacroiliitis, post laminotomy syndrome This is a very pleasant 73-year-old woman who presents today for follow-up after undergoing 2 bilateral sacral iliac joint injections. He reports that both of these were extremely helpful in reducing his pain well over 50% for approximately 2 weeks. His pain then returned. He presents today for further instruction of managing his pain. Objective - Exam General: The patient is alert and oriented. Patient is not sedated Patient answers all question appropriately. Cardiac: Heart is regular in rate and rhythm Respiratory: Clear to auscultation. No audible wheezes. Abdomen: Soft nontender nondistended. Musculoskeletal: Strength is normal bilaterally. Sensation is normal bilaterally. Straight leg raise is negative bilaterally. He has a mildly antalgic gait. He is tender to palpation over the sacroiliac joints bilaterally. Sacroiliac stressing maneuvers such as pelvic rocking are positive. No focal motor deficits are seen. Neurological: Reflexes are preserved and symmetric bilaterally. Assessment and Plan (1) Bilateral sacroiliitis Current Visit: Yes Status: Acute Code(s): M46.1 - SACROILIITIS, NOT ELSEWHERE CLASSIFIED SNOMED Code(s): 68136154 Plan: Plan of Care 1. Medications: Patient is not receiving any medications from this clinic 2. Interventions: We will schedule patient for left sacroiliac radiofrequency ablation. This was followed approximately 2 weeks later by a right-sided sacroiliac radio frequency ablation 3. Referrals: None 4. Testing: None 5. Follow-up: Left sacroiliac radio frequency ablation PQRS Measure Charge Sheet Measure #130: Documentation of Current Meds in Medical Chart: Patient not eligible for medications to be documented Measure #226: Tobacco Use: Screen & Cessation Intervention: Pt not a tobacco user Measure #111: Pneumonia Vaccination: Pneumococcal vaccine administered or previously received Measure #47: Advance Care Plan: Advance care planning discussed & documented, plan or surrogate given Measure #412: Opioid Treatment Agreement: No documentation of signed opioid treatment agreement Measure #408: Opioid Therapy Follow-up Evaluation: Patient had NO f/u eval minimum every 3 months during opioid therapy Measure #317: Preventitive Care & Scrn High Bld Press & F/U: Normal blood pressure, f/u not required Measure #128: Body Mass Index (BMI) Screening & Follow-up: BMI documented ABOVE normal parameters - f/u documented Measure #131: Pain Assessment & Follow-up: Pain positive & plan documented Measure #431: Unhealthy Alcohol Use Preventative Care & Scrn: Patient not identified as an unhealthy alcohol user PQRS Narrative: Smoking Status Never smoker Hx Alcohol Use (MH) No Home Medications: Ambulatory Orders Quinapril HCl 40 mg PO DAILY 01/17/14 glipiZIDE [Glucotrol] 10 mg PO BID 01/17/14 amLODIPine BESYLATE [Norvasc] 10 mg PO DAILY 04/19/14 Atorvastatin [Lipitor] 40 mg PO DAILY 08/08/14 Pregabalin [Lyrica] 150 mg PO BID 06/21/16 Omeprazole 20 mg PO DAILY 08/28/17 HYDROcodone/APAP 7.5-325MG [[place] 7.5-325] 1 tab PO QID PRN 10/16/17 metFORMIN HCL 1,000 mg PO BID #0 10/18/17 Aspirin [Adult Low Dose Aspirin EC] 81 mg PO DAILY 03/02/18 Nitroglycerin Sl Tabs [Nitrostat] 0.4 mg SUBLINGUAL Q5M PRN 03/02/18 Ibuprofen [Motrin] 400 mg PO Q6HR PRN 04/21/18 Ferrous Sulfate [Feosol] 325 mg PO DAILY 05/13/18 Magnesium 200 mg PO DAILY 05/13/18 Controlled Substance Measures - Controlled Substance Measures Is patient prescribed a controlled substance at discharge?: No
== END | disposition home or self-care (01) ==
LOC: PNWHC3 12:56
PROVIDERS: ATTEND Pain Medicine Pain Medicine
DX: M46.1 Sacroiliitis, not elsewhere classified (principal)
CPT/HCPCS: 99211

== ENCOUNTER 2018-07-02 00:31 | Observation (INO) | payer MEDICARE ==
[2018-07-02] MEDS ORDERED: LIDOCAINE 5% PATCH TOPICAL STA (00:49)
[2018-07-02] MEDS ORDERED: HYDROmorphone 1 MG/ML 1 ML SYRINGE IM STA (00:49)
[2018-07-02] MEDS ORDERED: KETOROLAC 30 MG/ML 1 ML VIAL IM STA (00:49)
--- NOTE | 2018-07-02 01:19 | XR ---
EXAM: XR Lumbar Spine, 2 or 3 Views CLINICAL HISTORY: ITS.REASON XR Reason: lower back pain that radiates down right leg, pt fell down stairs x 2wks TECHNIQUE: Frontal and lateral views of the lumbar spine. COMPARISON: CT lumbar spine on 10/14/2012 FINDINGS: Bones/joints: No definite fracture or subluxation. Posterior fusion hardware from L3-S1. Osteopenia. Degenerative changes of the spine Soft tissues: Normal. IMPRESSION: No definite fracture identified, but if there is persistent concern for acute injury, consider further evaluation with CT or MRI.
--- NOTE | 2018-07-02 01:20 | ED ---
Back Pain [facility] - General Chief Complaint: Back Pain/Injury Stated Complaint: Back Pain Time Seen by Provider: 07/02/18 00:42 Source: patient Limitations: no limitations - History of Present Illness Initial Comments: Primitivo is a pleasant 73 yo male with a history of chronic back pain with previous back surgery who presents to the ER today for evaluation of right sided low back pain with radiation into his right leg. Patient states that pain is similar to his chronic back pain but worse, patient has been taking 2 vicodin at a time with no improvement in the pain over the past 2 days. Pain is described as an aching in his lower back with sharpness and burning tingling down his right leg. Patient reports he has a history of sciatica and this is identical to that. denies any associated fevers, weakness in his lower extremities, change in bowel or bladder habits. Patient reports he suffers from chronic constipation from being on chronic narcotics however this is unchanged recently and he did have a firm bowel movement in the past 2 days. Patient's most recent back surgery was greater than 2 years ago. - Related Data Home Medications Medication Instructions Recorded Confirmed Quinapril HCl 40 mg PO DAILY 01/17/14 06/24/18 glipiZIDE [Glucotrol] 10 mg PO BID 01/17/14 06/24/18 amLODIPine BESYLATE [Norvasc] 10 mg PO DAILY 04/19/14 06/24/18 Atorvastatin [Lipitor] 40 mg PO DAILY 08/08/14 06/24/18 Pregabalin [Lyrica] 150 mg PO BID 06/21/16 06/24/18 Omeprazole 20 mg PO DAILY 08/28/17 06/24/18 HYDROcodone/APAP 7.5-325MG [[place] 1 tab PO QID PRN 10/16/17 06/24/18 7.5-325] Aspirin [Adult Low Dose Aspirin EC] 81 mg PO DAILY 03/02/18 06/24/18 Nitroglycerin Sl Tabs [Nitrostat] 0.4 mg SUBLINGUAL Q5M PRN 03/02/18 06/24/18 Ibuprofen [Motrin] 400 mg PO Q6HR PRN 04/21/18 06/24/18 Ferrous Sulfate [Feosol] 325 mg PO DAILY 05/13/18 06/24/18 Magnesium 200 mg PO DAILY 05/13/18 06/24/18 Previous Rx's Medication Instructions Recorded metFORMIN HCL 1,000 mg PO BID #0 10/18/17 Allergies Allergy/AdvReac Type Severity Reaction Status Date / Time No Known Allergies Allergy Verified 07/02/18 00:37 Review of Systems ROS Statement: Those systems with pertinent positive or pertinent negative responses have been documented in the HPI. ROS Other: All systems not noted in ROS Statement are negative. Past Medical History Past Medical History: Coronary Artery Disease (CAD), Chest Pain / Angina, Diabetes Mellitus, GERD/Reflux, Hearing Disorder / Deafness, Hyperlipidemia, Hypertension Additional Past Medical History / Comment(s): back pain History of Any Multi-Drug Resistant Organisms: None Reported Past Surgical History: Back Surgery, Heart Catheterization With Stent, Orthopedic Surgery Additional Past Surgical History / Comment(s): neck fusion, back fusion, carpel tunnel Past Anesthesia/Blood Transfusion Reactions: No Reported Reaction Date of Last Stent Placement:: 2011 Past Psychological History: No Psychological Hx Reported Smoking Status: Never smoker Past Alcohol Use History: None Reported Past Drug Use History: None Reported - Past Family History Father Family Medical History: Myocardial Infarction ([place]) Additional Family Medical History / Comment(s): passed 72 Mother Family Medical History: [place]ocardial Infarction [place] Additional Family Medical History / Comment(s): passed 77 Brother(s) Family Medical History: [place]ocardial Infarction [place]) Additional Family Medical History / Comment(s): 3 brothers passed from [place] in 50's General Exam - General Exam Comments Initial Comments: Physical Exam GENERAL: Patient is well-developed and well-nourished. Patient is nontoxic and well-hydrated and is in no distress. HENT: Normocephalic, Atraumatic. EYES: PERRL, EOMI PULMONARY: Unlabored respirations. No audible rales rhonchi or wheezing was noted. CARDIOVASCULAR: There is a regular rate and rhythm without any murmurs gallops or rubs. DP and PT pulses are present and equal bilaterally, lower extremity's are warm and well perfused ABDOMEN: Soft and nontender to deep palpation with normal bowel sounds. No palpable pulsating masses SKIN: Skin is clear with no lesions or rashes and otherwise unremarkable. : Deferred NEUROLOGIC: Patient is alert and oriented x3. Moving all extremities spontaneously Antalgic gait MUSCULOSKELETAL: Normal extremities with adequate strength and full range of motion. No lower extremity swelling or edema. No calf tenderness. PSYCHIATRIC: Normal psychiatric evaluation. Limitations: no limitations Limitations: no limitations Course Vital Signs 07/02/18 07/02/18 00:33 04:05 Temperature 98 F Pulse Rate 90 67 Respiratory 18 16 Rate Blood Pressure 158/69 157/93 O2 Sat by Pulse 93 L 99 Oximetry - Reevaluation(s) Reevaluation #1: Patient was reevaluated and reported improvement in his back pain after medications however still has burning pain in his right thigh and is still very uncomfortable 07/02/18 01:58 Medical Decision Making - Medical Decision Making Patient was seen and evaluated, history is obtained from patient review of medical record and at bedside This is a pleasant 73-year-old gentleman on chronic narcotics due to chronic back and neck pain presenting with exacerbation of his chronic low back pain and sciatica No red flag symptoms Given the patient's advanced age x-ray was ordered as well as Lidoderm, Toradol and Dilaudid for pain management Upon reevaluation the patient reports continued pain. Patient with burning pain down his right thigh. Advised patient that we will obtain labs and re-evaluate after valiuim was noted to be sleeping comfortably after receiving Valium. I woke the patient who reports that he still feeling much better and is comfortable with the plan for discharge home so that he can sleep in his own bed. However upon standing the patient began to complain of worsening pain and no longer feels comfortable going home. At this time I will plan to place the patient in observation for intractable back pain. Patient was able to ambulate independently to the restroom, was able to open the restroom door without assistance. Patient still complaining the pain is too severe for him to go home, patient care was discussed with his primary care physician who agrees to place the patient in observation for evaluation by orthopedics. - Lab Data Result diagrams: 07/02/18 02:59 07/02/18 02:59 Lab Results 07/02/18 07/02/18 Range/Units 02:59 02:59 WBC 5.8 (3.8-10.6) k/uL RBC 4.19 L (4.30-5.90) m/uL Hgb 12.3 L (13.0-17.5) gm/dL Hct 35.8 L (39.0-53.0) % MCV 85.5 (80.0-100.0) fL MCH 29.3 (25.0-35.0) pg MCHC 34.2 (31.0-37.0) g/dL RDW 16.1 H (11.5-15.5) % Plt Count 256 (150-450) k/uL Neutrophils % 60 % Lymphocytes % 24 % Monocytes % 6 % Eosinophils % 5 % Basophils % 1 % Neutrophils # 3.5 (1.3-7.7) k/uL Lymphocytes # 1.4 (1.0-4.8) k/uL Monocytes # 0.4 (0-1.0) k/uL Eosinophils # 0.3 (0-0.7) k/uL Basophils # 0.1 (0-0.2) k/uL Anisocytosis Slight ESR 15 (0-15) mm/hr Sodium 133 L (137-145) mmol/L Potassium 5.0 (3.5-5.1) mmol/L Chloride 98 (98-107) mmol/L Carbon Dioxide 24 (22-30) mmol/L Anion Gap 11 mmol/L BUN 20 (9-20) mg/dL Creatinine 0.85 (0.66-1.25) mg/dL Est GFR (CKD-EPI)AfAm >90 (>60 ml/min/1.73 sqM) Est GFR (CKD-EPI)NonAf 86 (>60 ml/min/1.73 sqM) Glucose 162 H (74-99) mg/dL Calcium 9.7 (8.4-10.2) mg/dL Magnesium 1.4 L (1.6-2.3) mg/dL Total Bilirubin 0.4 (0.2-1.3) mg/dL AST 21 (17-59) U/L ALT 33 (21-72) U/L Alkaline Phosphatase 67 (38-126) U/L Creatine Kinase 105 (55-170) U/L C-Reactive Protein 6.7 (<10.0) mg/L Total Protein 7.4 (6.3-8.2) g/dL Albumin 4.7 (3.5-5.0) g/dL Disposition Clinical Impression: Sciatica Disposition: ADMITTED IP TO THIS HOSP Condition: Stable Is patient prescribed a controlled substance at d/c from ED?: No Referrals: Rufus Monreal MD [Primary Care Provider] - 1-2 days
[2018-07-02] MEDS ORDERED: DIAZEPAM 5 MG/ML 2 ML INJ IVP STA (02:35)
[2018-07-02 03:13] LABS: Anisocytosis Slight; Basophils # (A) 0.1 k/uL (0-0.2); Basophils % (A) 1 %; Eosinophils # (A) 0.3 k/uL (0-0.7); Eosinophils % (A) 5 %; HCT 35.8 % (39.0-53.0); HGB 12.3 gm/dL (13.0-17.5); Lymphocytes # (A) 1.4 k/uL (1.0-4.8); Lymphocytes % (A) 24 %; MCH 29.3 pg (25.0-35.0); MCHC 34.2 g/dL (31.0-37.0); MCV 85.5 fL (80.0-100.0); Mean Platelet Volume 7.2; Monocytes # (A) 0.4 k/uL (0-1.0); Monocytes % (A) 6 %; Neutrophils # (A) 3.5 k/uL (1.3-7.7); Neutrophils % (A) 60 %; Platelet Count 256 k/uL (150-450); RBC 4.19 m/uL (4.30-5.90); RDW 16.1 % (11.5-15.5); WBC 5.8 k/uL (3.8-10.6)
[2018-07-02 03:35] LABS: ALT 33 U/L (21-72); AST 21 U/L (17-59); Albumin 4.7 g/dL (3.5-5.0); Alkaline Phosphatase 67 U/L (38-126); Anion Gap 11 mmol/L; Blood Urea Nitrogen 20 mg/dL (9-20); C Reactive Protein 6.7 mg/L (<10.0); Calcium 9.7 mg/dL (8.4-10.2); Carbon Dioxide 24 mmol/L (22-30); Chloride 98 mmol/L (98-107); Creatine Kinase 105 U/L (55-170); Glucose 162 mg/dL (74-99); Magnesium 1.4 mg/dL (1.6-2.3); Sodium 133 mmol/L (137-145); Total Bilirubin 0.4 mg/dL (0.2-1.3); Total Protein 7.4 g/dL (6.3-8.2)
[2018-07-02] MEDS ORDERED: MAGNESIUM OXIDE 400 MG TAB PO STA (03:49)
[2018-07-02 03:57] LABS: Erythrocyte Sedimentation Rate 15 mm/hr (0-15)
--- NOTE | 2018-07-02 05:16 | CT ---
EXAM: CT Lumbar Spine Without Intravenous Contrast CLINICAL HISTORY: ITS.REASON CT Reason: Pain TECHNIQUE: Axial computed tomography images of the lumbar spine without intravenous contrast. CTDI is 14 mGy and DLP is 841 mGy-cm. This CT exam was performed using one or more of the following dose reduction techniques: automated exposure control, adjustment of the mA and/or kV according to patient size, and/or use of iterative reconstruction technique. COMPARISON: MRI lumbar spine 02/12/18 FINDINGS: Postsurgical changes: Posterior fusion from L3 to S1 and interfusion from L5-S1. There is also posterior decompression from L3-S1. Hardware is intact. No acute fracture or subluxation. Disc height loss at L3-4 and L4-5. No high-grade spinal canal stenosis. IMPRESSION: Fusion hardware is intact. No acute fracture or subluxation.
--- NOTE | 2018-07-02 05:21 | CT ---
EXAM: CT Angiography chest, Abdomen and Pelvis With and without Intravenous Contrast CLINICAL HISTORY: ITS.REASON CT Reason: Pain TECHNIQUE: Axial computed tomographic angiography images of the chest, abdomen and pelvis with and without intravenous contrast. CTDI is 14 mGy and DLP is 841 mGy-cm. This CT exam was performed using one or more of the following dose reduction techniques: automated exposure control, adjustment of the mA and/or kV according to patient size, and/or use of iterative reconstruction technique. MIP reconstructed images were created and reviewed. COMPARISON: No relevant prior studies available. FINDINGS: Chest: The lung apices are not included in the [id number]. Remaining lung demonstrates no consolidation, pleural effusion, or pneumothorax. Cardiomegaly without pericardial effusion. No pulmonary embolism. No aortic aneurysm or dissection. No acute fracture. Abdomen: No aortic aneurysm or dissection. Mild hiatal hernia. No bowel obstruction. Copious amounts of stool in the colon. No hydronephrosis. Hepatic steatosis. Remaining solid organs are unremarkable. IMPRESSION: Chest: Lung apices were not included, however the remaining thorax is unremarkable. No aortic aneurysm or dissection. Abdomen: No aortic aneurysm or dissection. No acute findings. Hepatic steatosis. Copious amounts of stool, correlate with patient.
[2018-07-02] MEDS ORDERED: NALOXONE 0.4 MG/ML 1 ML VIAL IV PRN (06:05)
[2018-07-02] MEDS ORDERED: HYDROcodone/APAP 10-325MG 1 EACH TAB PO PRN (07:49)
[2018-07-02] MEDS ORDERED: HYDROmorphone 1 MG/ML 1 ML SYRINGE IVP PRN (07:50)
[2018-07-02] MEDS ORDERED: NITROGLYCERIN SL TABS 0.4 MG TAB SUBLINGUAL PRN (08:09)
[2018-07-02] MEDS ORDERED: IBUPROFEN 400 MG TAB PO PRN (08:09)
--- NOTE | 2018-07-02 08:15 | P.HPIM ---
History of Present Illness Chief complaint Worsening back pain and cannot walk. History of present illness Patient is a 73-year-old gentleman who has had long-standing problems with his lumbar back apparently has had 3 previous surgeries for back pain by the neurosurgeon Dr. Garcia. Apparently last 2 days he has had a more severe right lumbar discomfort with radiation down the right leg at times to the point where he cannot ambulate. He did apparently have a fall several days ago but the pain did not immediately get to this extreme. He has been taking 2 of his [place] tablets instead of 1 tablet 4 times a day for his chronic pain. Denies any abdominal pain. No unusual urinary or bowel symptoms. The patient has been seen at a [facility] pain clinic. It appears that he has received injections to the area and that there is planned for a further procedure next week. Apparently he did get some initial improvement with earlier injections. Past medical history As mentioned above he has had previous lumbar spinal stenosis surgeries and previous injections along with previous surgeries for cervical stenosis at C4- C5. Positive history of diabetes History of coronary artery disease with a catheterization back in October 2017. At that time he had moderate disease of the left circumflex and right coronary with mild disease in the LAD with normal left ventricular size and function. 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 Home medications Metformin thousand milligrams twice a day Glipizide 10 mg twice a day Norvasc 10 mg daily Quinapril 40 mg daily Lyrica 150 mg twice a day Omeprazole 20 mg daily Nitroglycerin 0.4 sublingual when necessary Magnesium 200 mg daily Ibuprofen 400 mg every 6 hours [place] 7.5-325 one 4 times a day as needed for pain Ferrous sulfate 325 daily Atorvastatin 40 mg daily Aspirin 81 mg daily No known ALLERGIES Review of systems Basically as mentioned above. Patient denies any chest pain or unusual shortness of breath No nausea or vomiting. No urinary or bowel symptomatology No unusual leg edema. No new skin rashes. Family history Is positive for coronary artery disease. 3 siblings with coronary artery disease to them at the age of 50 and one at the age of 60. Social history The patient lives locally with his . No history of smoking or any excessive alcohol intake. Physical examination Patient aroused in bed in bed in the emergency room. Temperature 90.8 with a pulse 67 respirations 17 and blood pressure 149/82. He is 94% saturated on room air. Head is atraumatic Neck is not stiff. No definite adenopathy or bruits. Lungs clear Heart tones regular Abdomen is mildly obese but soft and nontender. No organomegaly. Extremities show no evidence of edema or rashes. Neurologically he is alert and oriented. Straight leg raising did reveal some pain on the right side at about 20 in the right lumbar area. Patient did have equal strength bilaterally. No focal weakness. No cranial nerve deficits. Reflexes were 2+ equal bilaterally in the lower extremities. Computed tomography scan of the aorta revealed no evidence of dissection or aneurysm in the thoracic or abdomen. CT of the lumbar spine also showed normal appearing postsurgical hardware. The re was disc loss L3-L4 and L4 5. Fusion also was present at L3 to S1 Laboratory White count of 5.8 with a hemoglobin 12.3 and a platelet count of 256. Sodium 133 with potassium 5.0. BUN of 20 with creatinine 0.85. GFR 86. Blood sugar 162 magnesium 1.4 liver function tests good Impressions 1. Worsening chronic lumbar back pain with gait disturbance and inability to ambulate secondary to pain. Question possibility of new nerve impingement syndrome. 2. Chronic medical problems as stated above in the past medical history which includes coronary artery disease, hypertension, hyperlipidemia and diabetes. Plans The patient will be given analgesics as needed. Consultation with orthopedics for their recommendations. This was discussed with patient at bedside in the emergency room. Past Medical History Past Medical History: Coronary Artery Disease (CAD), Chest Pain / Angina, Diabetes Mellitus, GERD/Reflux, Hearing Disorder / Deafness, Hyperlipidemia, Hypertension Additional Past Medical History / Comment(s): back pain History of Any Multi-Drug Resistant Organisms: None Reported Past Surgical History: Back Surgery, Heart Catheterization With Stent, Orthopedic Surgery Additional Past Surgical History / Comment(s): neck fusion, back fusion, carpel tunnel Past Anesthesia/Blood Transfusion Reactions: No Reported Reaction Date of Last Stent Placement:: 2011 Past Psychological History: No Psychological Hx Reported Smoking Status: Never smoker Past Alcohol Use History: None Reported Past Drug Use History: None Reported - Past Family History Father Family Medical History: Myocardial Infarction ([place]) Additional Family Medical History / Comment(s): passed 72 Mother Family Medical History: Myocardial Infarction [place]) Additional Family Medical History / Comment(s): passed 77 Brother(s) Family Medical History: Myocardial Infarction ([place]) Additional Family Medical History / Comment(s): 3 brothers passed from [place] in 50's Medications and Allergies Home Medications Medication Instructions Recorded Confirmed Type Quinapril HCl 40 mg PO DAILY 01/17/14 06/24/18 History glipiZIDE [Glucotrol] 10 mg PO BID 01/17/14 06/24/18 History amLODIPine BESYLATE [Norvasc] 10 mg PO DAILY 04/19/14 06/24/18 History Atorvastatin [Lipitor] 40 mg PO DAILY 08/08/14 06/24/18 History Pregabalin [Lyrica] 150 mg PO BID 06/21/16 06/24/18 History Omeprazole 20 mg PO DAILY 08/28/17 06/24/18 History HYDROcodone/APAP 7.5-325MG [[place] 1 tab PO QID PRN 10/16/17 06/24/18 History 7.5-325] metFORMIN HCL 1,000 mg PO BID #0 10/18/17 06/24/18 Rx Aspirin [Adult Low Dose Aspirin EC] 81 mg PO DAILY 03/02/18 06/24/18 History Nitroglycerin Sl Tabs [Nitrostat] 0.4 mg SUBLINGUAL Q5M PRN 03/02/18 06/24/18 History Ibuprofen [Motrin] 400 mg PO Q6HR PRN 04/21/18 06/24/18 History Ferrous Sulfate [Feosol] 325 mg PO DAILY 05/13/18 06/24/18 History Magnesium 200 mg PO DAILY 05/13/18 06/24/18 History Allergies Allergy/AdvReac Type Severity Reaction Status Date / Time No Known Allergies Allergy Verified 07/02/18 00:37 Physical Exam Vitals: Vital Signs Temp Pulse Resp BP Pulse Ox 07/02/18 07:20 98.0 F 67 17 149/82 94 L 07/02/18 04:05 67 16 157/93 99 07/02/18 00:33 98 F 90 18 158/69 93 L Intake and Output 07/01/18 07/02/18 07/02/18 22:59 06:59 14:59 Other: Weight 83.915 kg Results CBC & Chem 7: 07/02/18 02:59 05/02/19 02:59 Labs: Abnormal Lab Results - Last 24 Hours (Table) 07/02/18 07/02/18 Range/Units 02:59 02:59 RBC 4.19 L (4.30-5.90) m/uL Hgb 12.3 L (13.0-17.5) gm/dL Hct 35.8 L (39.0-53.0) % RDW 16.1 H (11.5-15.5) % Sodium 133 L (137-145) mmol/L Glucose 162 H (74-99) mg/dL Magnesium 1.4 L (1.6-2.3) mg/dL
--- NOTE | 2018-07-02 08:47 | P.CNOR ---
History of Present Illness - HPI Consult date: 07/02/18 Past Medical History Past Medical History: Coronary Artery Disease (CAD), Chest Pain / Angina, Diabetes Mellitus, GERD/Reflux, Hearing Disorder / Deafness, Hyperlipidemia, Hypertension Additional Past Medical History / Comment(s): back pain History of Any Multi-Drug Resistant Organisms: None Reported Past Surgical History: Back Surgery, Heart Catheterization With Stent, Orthopedic Surgery Additional Past Surgical History / Comment(s): neck fusion, back fusion, carpel tunnel Past Anesthesia/Blood Transfusion Reactions: No Reported Reaction Date of Last Stent Placement:: 2011 Past Psychological History: No Psychological Hx Reported Smoking Status: Never smoker Past Alcohol Use History: None Reported Past Drug Use History: None Reported - Past Family History Father Family Medical History: Myocardial Infarction ([place]) Additional Family Medical History / Comment(s): passed 72 Mother Family Medical History: Myocardial Infarction ([place]) Additional Family Medical History / Comment(s): passed 77 Brother(s) Family Medical History: Myocardial Infarction ([place]) Additional Family Medical History / Comment(s): 3 brothers passed from [place] in 50's Medications and Allergies Home Medications Medication Instructions Recorded Confirmed Type Quinapril HCl 40 mg PO DAILY 01/17/14 07/02/18 History glipiZIDE [Glucotrol] 10 mg PO BID 01/17/14 07/02/18 History amLODIPine BESYLATE [Norvasc] 10 mg PO DAILY 04/19/14 07/02/18 History Atorvastatin [Lipitor] 40 mg PO DAILY 08/08/14 07/02/18 History Pregabalin [Lyrica] 150 mg PO DAILY 06/21/16 07/02/18 History Omeprazole 20 mg PO DAILY 08/28/17 07/02/18 History HYDROcodone/APAP 7.5-325MG [[place] 1 tab PO QID PRN 10/16/17 07/02/18 History 7.5-325] metFORMIN HCL 1,000 mg PO BID #0 10/18/17 07/02/18 Rx Nitroglycerin Sl Tabs [Nitrostat] 0.4 mg SUBLINGUAL Q5M PRN 03/02/18 07/02/18 History Allergies Allergy/AdvReac Type Severity Reaction Status Date / Time No Known Allergies Allergy Verified 07/02/18 08:23 Physical Examination Osteopathic Statement: *. No significant issues noted on an osteopathic structural exam other than those noted in the History and Physical/Consult. Results - Labs Labs: Abnormal Lab Results - Last 24 Hours (Table) 07/02/18 07/02/18 Range/Units 02:59 02:59 RBC 4.19 L (4.30-5.90) m/uL Hgb 12.3 L (13.0-17.5) gm/dL Hct 35.8 L (39.0-53.0) % RDW 16.1 H (11.5-15.5) % Sodium 133 L (137-145) mmol/L Glucose 162 H (74-99) mg/dL Magnesium 1.4 L (1.6-2.3) mg/dL H & H 07/02/18 Range/Units 02:59 Hgb 12.3 L (13.0-17.5) gm/dL Hct 35.8 L (39.0-53.0) % Result Diagrams: 07/02/18 02:59 07/02/18 02:59 Assessment and Plan Assessment: Acute on chronic low back pain with lower extremity radiculopathy and recent history of surgical intervention with Dr. Garcia Patient continues to have treatment Dr. Garcia and has plans for further surgical intervention with him Plan: Acute on chronic low back pain with lower extremity radiculopathy and recent history of surgical intervention with Dr. Garcia Patient continues to have treatment Dr. Garcia and has plans for further surgical intervention with him I saw the patient and discussed his issues with him. He had lumbar decompression and fusion at L34 L4 5 and L5-S1 with Dr. Garcia back in January just a year and half ago. He says he initially was doing well with developed further pain in his back and his lower extremities and has had significant worsening over the past few days particular venous lower extremity. He has been followed with Dr. Garcia regularly and says that he is plans with further surgical intervention with him at the level above at L2-3. His imaging shows significant stenosis and herniation at L2-3 which is likely the source of his lower extremity radicular symptoms. His fusion appears to be stable and solid. There does not appear to be significant acute change in his back compared to his MRI from January. I think he should continue with his management with Dr. Garcia as he is planning and we will forego a new consult for our service. He may be worthwhile for him to see pain management as well. I discussed this with him he is agreeable.
--- NOTE | 2018-07-02 11:05 | P.CON ---
Consult Note - . Consult date: 07/02/18 Assessment/Plan:: This is a 73-year-old gentleman with history of chronic lower back pain due to multiple back surgeries. The patient's pain has exacerbated over the last few days to the point of not being able to ambulate more than a few steps at a time. The patient denies any bowel or bladder dysfunction. He does feel some weakness in his leg. The patient started his back and goes down to the mid thigh area with mild tingling as he states. The patient has been taking [place] 7.5 mg and since this increasing pain started he has been doubling up on his pills with little or no relief. The patient came to the ER last night and received 1 dose of Dilaudid IV 1 mg. He also was placed again on [place] orally. I saw the patient today in the ER he was alert oriented 3 no apparent distress. He has his and a friend beside him. Straight leg raising test negative on the right side. Internal and external rotation of the hip joint on the right side did not elicit any hip pain however it did cause lower back pain. Thee's test negative on the right side. He does have tenderness in the lumbar paravertebral musculature on both sides of the spine with no tenderness around the sacroiliac joints. He has mildly decreased but symmetrical muscle strength to 4 out of 5 for knee flexion and ankle flexion and extension. Plan: The patient may benefit from getting caudal epidural steroid injection with lysis of adhesions under fluoroscopic guidance however he would like to try conservative treatment over the weekend. He prefers not to be on oral steroids because of his history of diabetes. I spoke with the patient's nurse in the ER to increase his Dilaudid frequency to 1 mg every 2 hours when necessary severe pain. Also I would like to discontinue Milner and start him on Percocet 10 mg every 4-6 hours when necessary pain. I'll give him prescription for 20 pills of Percocet 10 mg to take home and then we'll see him on Friday morning for the procedure mentioned above. With the patient's pain gets better then he can go back to her Milner 7.5 mg orally. If the patient's pain gets better with the above mentioned medications than he can go home this afternoon and come back on Friday for the pain procedure mentioned above. I thank you for the consultation.
[2018-07-02] MEDS: oxyCODONE-APAP 10-325MG 1 EACH TAB PO PRN ×3 (11:42→20:18)
[2018-07-02] MEDS: metFORMIN 500 MG TAB PO SCH ×2 (11:43→20:17)
[2018-07-02] MEDS: PREGABALIN 75 MG CAP PO SCH ×2 (11:44→20:17)
[2018-07-02] MEDS: PANTOPRAZOLE 40 MG TABLET PO SCH (11:44)
[2018-07-02] MEDS: MAGNESIUM OXIDE 400 MG TAB PO SCH (11:44)
[2018-07-02] MEDS: ASPIRIN 81 MG PO SCH (11:45)
[2018-07-02] MEDS: ATORVASTATIN 40 MG TAB PO SCH (11:45)
[2018-07-02] MEDS: FERROUS SULFATE 325 MG TAB PO SCH (11:45)
[2018-07-02] MEDS: LISINOPRIL 20 MG TAB PO SCH (11:45)
[2018-07-02] MEDS: amLODIPine 10 MG TAB PO SCH (11:46)
[2018-07-02] MEDS: glipiZIDE 10 MG TAB PO SCH ×2 (11:47→18:05)
[2018-07-02] MEDS: HYDROmorphone 1 MG/ML 1 ML SYRINGE IVP PRN ×3 (17:17→22:54)
[2018-07-02 17:32] LABS: Glucose,Whole Blood 133 mg/dL (75-99)
[2018-07-02 20:29] LABS: Glucose,Whole Blood 221 mg/dL (75-99)
[2018-07-03] MEDS: HYDROmorphone 1 MG/ML 1 ML SYRINGE IVP PRN ×4 (04:21→22:14)
[2018-07-03] MEDS: oxyCODONE-APAP 10-325MG 1 EACH TAB PO PRN ×4 (04:48→23:12)
[2018-07-03] MEDS ORDERED: ONDANSETRON 4 MG/2 ML VIAL IVP PRN (07:27)
[2018-07-03 07:45] LABS: Glucose,Whole Blood 152 mg/dL (75-99)
[2018-07-03] MEDS: MAGNESIUM OXIDE 400 MG TAB PO SCH (07:51)
[2018-07-03] MEDS: LISINOPRIL 20 MG TAB PO SCH (07:52)
[2018-07-03] MEDS: ASPIRIN 81 MG PO SCH (07:52)
[2018-07-03] MEDS: amLODIPine 10 MG TAB PO SCH (07:52)
[2018-07-03] MEDS: ATORVASTATIN 40 MG TAB PO SCH (07:52)
[2018-07-03] MEDS: metFORMIN 500 MG TAB PO SCH ×2 (07:52→21:27)
[2018-07-03] MEDS: PREGABALIN 75 MG CAP PO SCH ×2 (07:52→21:27)
[2018-07-03] MEDS: glipiZIDE 10 MG TAB PO SCH ×2 (07:52→17:07)
[2018-07-03] MEDS: FERROUS SULFATE 325 MG TAB PO SCH (07:52)
[2018-07-03] MEDS: PANTOPRAZOLE 40 MG TABLET PO SCH (07:52)
--- NOTE | 2018-07-03 08:39 | P.PN ---
Progress Note - Text The patient is a 73-year-old gentleman who presented with right lower back pain radiating down the right lower extremity that was not relieved with home oral opioid medication. The patient has had multiple back surgeries. Patient has been seen by pain management and is presently on Dilaudid injections. Approximate 4:00 this morning he had rather severe pain that radiated down the right thigh and into the scrotal area. This required Dilaudid injections. Patient has been seen by orthopedics and Dr. Sultana and pain management. Vital signs this morning show a temperature of 97.4 with a pulse of 69 and respirations 18. Blood pressure 136/73 and he is 95% saturated on room air. Lung and heart examination clear and regular. Abdomen is soft and nontender. The patient is able to move all his lower extremities without focal deficits at this time. No bowel changes. No incontinence. Impressions and plans Discussed with patient. Pain management is planning on caudal epidural steroid injection. With lysis of adhesions under fluoroscopic guidance. Also plans to change from [place] to Percocet. Discussed with nursing staff today. The patient's pain eases and he is able to ambulate and take care of his daily activities plans will be for discharge, continuing plans as per pain management. With further follow-up with them for more definitive procedure to be done. Patient seems to understand reasons for treatment.
[2018-07-03 17:08] LABS: Glucose,Whole Blood 143 mg/dL (75-99)
[2018-07-03 22:13] VITALS: RESP 20
[2018-07-04] MEDS: HYDROmorphone 1 MG/ML 1 ML SYRINGE IVP PRN ×2 (01:48→07:34)
[2018-07-04 05:21] VITALS: BP 109/68; PULSE 62; TEMP 98.1
[2018-07-04 07:19] LABS: Glucose,Whole Blood 141 mg/dL (75-99)
[2018-07-04] MEDS: FERROUS SULFATE 325 MG TAB PO SCH (07:37)
[2018-07-04] MEDS: PREGABALIN 75 MG CAP PO SCH (07:37)
[2018-07-04] MEDS: metFORMIN 500 MG TAB PO SCH (07:37)
[2018-07-04] MEDS: ASPIRIN 81 MG PO SCH (07:37)
[2018-07-04] MEDS: PANTOPRAZOLE 40 MG TABLET PO SCH (07:37)
[2018-07-04] MEDS: LISINOPRIL 20 MG TAB PO SCH (07:37)
[2018-07-04] MEDS: glipiZIDE 10 MG TAB PO SCH (07:37)
[2018-07-04] MEDS: amLODIPine 10 MG TAB PO SCH (07:37)
[2018-07-04] MEDS: ATORVASTATIN 40 MG TAB PO SCH (07:37)
[2018-07-04] MEDS: MAGNESIUM OXIDE 400 MG TAB PO SCH (07:37)
--- NOTE | 2018-07-04 10:32 | P.PN ---
Progress Note - Text The patient is a 73-year-old gentleman who presented with right lower back discomfort radiating down to the right thigh anteriorly. Not relieved with his home opioid medications [place]. Patient has had multiple back surgeries. The patient hasn't been seen by orthopedics and also by pain management/anesthesia. He is still having some intermittent pain but is able to ambulate and get back and forth from the bathroom. No chest pain or shortness of breath. No nausea or vomiting. Patient does have underlying diabetes, hypertension and coronary artery disease. Vital signs show temperature 98.1 with a pulse 62 and respirations 20. Blood pressure 109/68 and he is 94% saturated. Lung and heart exam is clear. Abdomen nontender. No focal weakness in the lower extremities. Neurologic exam unremarkable. Blood sugar 141 this morning. Impression and plans The patient was admitted with uncontrolled sciatica from lumbar sacral disease with radiation down the right leg. He has been seen by orthopedic surgery. He has been cleared for discharge by anesthesia/pain management. He is scheduled for further intervention on Friday and will return to the hospital for that to manage his pain. He does have [place] at home which she will increase it to every 6-8 hours as needed. He has declined corticosteroids as he is concerned about elevation of his blood sugars being a diabetic. Discussed with patient and family at bedside. Discussed with nursing staff this morning. He will call or follow-up in the office next week. He is warned regarding any exertional activity until he gets his pain better controlled with follow-up with pain management and procedures as they recommend. Dr. Meier and call for me today if any concerns or problems should arise.
[2018-07-04] MEDS: oxyCODONE-APAP 10-325MG 1 EACH TAB PO PRN (10:54)
--- NOTE | 2018-07-05 22:47 | DS ---
DISCHARGE SUMMARY HISTORY: Mr. Benjamin is a 73-year-old gentleman who was admitted with incapacitating right lower lumbar discomfort with radiation to the thigh anterior and posterior aspect with inability to ambulate and severe pain, which was intractable and rated as an 8 on a scale of 1 to 10. He was not able to use his [place] and get relief at home, even increasing it on admission to 2 at a time. The patient was admitted. Evaluation with labs revealed a white count of 5.8, hemoglobin 12.3, and a platelet count of 256. Sodium was 133 with potassium of 5, CO2 content 24, BUN of 20, with creatinine 0.85, GFR of 86. Blood sugar was initially 162, did decrease down to 143, magnesium slightly low at 1.4. The liver function tests were normal. Albumin 4.7. Did have initial lumbar spine x-rays, which reveal no definite fracture. Osteopenia was present, posterior fusion hardware from L3-S1. Degenerative changes of the spine were noted. Because of the severity of the back and lumbar pain, the patient underwent thoracic aortic CT scan which revealed no aortic aneurysm or dissection. Abdomen did not reveal any aortic aneurysm or dissection or acute findings. There was some hepatic steatosis. Lumbar CT showed the fusion hardware to be intact without acute fracture or subluxation. There was DIS height loss of L3-L4 and L4-L5, posterior fusion from L3-S1 with intrafusion from L5-S1, posterior decompression from L3-S1. Hardware was intact. The patient was placed on Dilaudid. Consultation obtained with Orthopedics and Pain Management. It was felt that there was no need for a initial surgical intervention at this point. As mentioned, he did get some relief with Dilaudid, although he is still having some pain. He was able to ambulate over a 24 to 48 hours. He was seen by pain management and the patient was scheduled for the procedure this coming Friday, the as outpatient with Pain Management. At this point, the patient will continue his Lipitor 40 mg daily, [place] he has 1 tablet 4 times a day. He needs to go to 2 tablets 3 times a day. He may do that until his procedure. He can follow up with Pain Management. He does have nitroglycerin as needed sublingual for pain, omeprazole 20 mg for his reflux, Lyrica 150 mg daily, quinapril 40 mg daily for blood pressure. Amlodipine 10 mg daily for sugar, glipizide 10 mg twice a day, metformin 1000 mg twice a day. Once again, patient to follow up with Pain Management and also his neurosurgeon, Dr. Garcia. He can call the office next week for followup and if any further problems. FINAL DISCHARGE DIAGNOSIS: Acute intractable back pain causing immobility, gait disturbance, inability to handle activities of daily life and intractable pain requiring IV Dilaudid. This patient who has had previous back surgeries as described above with underlying osteoarthritis and lumbar disc disease with comorbidities including his diabetes, hypertension, coronary artery disease, hyperlipidemia. He has had previous lumbar surgeries and also previous cervical surgery. DIET: Diabetic diet as tolerated. ACTIVITIES: As tolerated based on pain. No heavy lifting or twisting or exertional activities recommended at this time. MMODL / IJN: [id number] / MTDD
== END 2018-07-04 11:23 | disposition home or self-care (01) ==
LOC: EC 00:31 → 1SOBS 06:05 → 4MS4W 12:15
PROVIDERS: ADMIT Internal Medicine; ATTEND Internal Medicine
DX: M54.5 Low back pain (principal); G89.4 Chronic pain syndrome; M54.2 Cervicalgia; M51.16 Intervertebral disc disorders with radiculopathy, lumbar region; M48.061 Spinal stenosis, lumbar region without neurogenic claudication; M85.88 Other specified disorders of bone density and structure, other site; K76.0 Fatty (change of) liver, not elsewhere classified; K59.09 Other constipation; K21.9 Gastro-esophageal reflux disease without esophagitis; I25.10 Atherosclerotic heart disease of native coronary artery without angina pectoris; I10 Essential (primary) hypertension; H91.90 Unspecified hearing loss, unspecified ear; E78.5 Hyperlipidemia, unspecified; E11.9 Type 2 diabetes mellitus without complications; R26.2 Difficulty in walking, not elsewhere classified; Z86.010 Personal history of colon polyps; R26.9 Unspecified abnormalities of gait and mobility; R53.1 Weakness; M47.26 Other spondylosis with radiculopathy, lumbar region; Z79.891 Long term (current) use of opiate analgesic; Z79.84 Long term (current) use of oral hypoglycemic drugs; Z79.899 Other long term (current) drug therapy; Z79.82 Long term (current) use of aspirin; Z79.1 Long term (current) use of non-steroidal anti-inflammatories (NSAID); Z95.5 Presence of coronary angioplasty implant and graft; Z98.1 Arthrodesis status; Z91.81 History of falling; Z82.49 Family history of ischemic heart disease and other diseases of the circulatory system
CPT/HCPCS: 96376 ×3; 96375 ×2; 96372; 96374; 99285; 36415; 80053; 85652; 82550; 83735; 85025; 86140; 72100; 72131; 71275; 74174; G0378 ×3; J3360; J2405; J1885; J1170 ×3; Q9967

== ENCOUNTER 2018-07-06 10:10 | Day surgery (SDC) | payer MEDICARE ==
[~2018-07-06 10:10] MED LIST changes: +LACTATED RINGERS 1,000 ML IV SCH; -SODIUM CHLORIDE 0.9% 500 ML 500 ML IV SCH
[2018-07-06 10:59] VITALS: RESP 18; TEMP 97.6
[2018-07-06] MEDS ORDERED: LACTATED RINGERS 1,000 ML IV ONE (10:59)
[2018-07-06] MEDS ORDERED: LIDOCAINE 1% 20 ML VIAL (10MG/ML) FOR IV START INTRADERMA ONE (11:00)
[2018-07-06 11:04] LABS: Glucose,Whole Blood 176 mg/dL (75-99)
[2018-07-06] MEDS ORDERED: IV FLUID CONTINUATION 500 ML IV ONE (12:20)
--- NOTE | 2018-07-06 12:21 | P.PCN ---
Date of Procedure: 07/06/18 Procedure(s) Performed: PREOP DIAGNOSIS: 1- Lumbar postlaminectomy syndrome. 2-sacroiliitis POSTOP DIAGNOSIS:1- Lumbar postlaminectomy syndrome. 2-sacroiliitis PROCEDURE: 1-Caudal epidural steroid injection with epidurolysis and epidurogram under fluoroscopic guidance. 2-caudal epidurogram. ANESTHESIA: Local with 1% lidocaine 3 ml ,and moderate sedation, with Versed 3 mg and fentanyl 100 g. EBL: Minimal. PROCEDURE INDICATION: The patient with post-laminectomy syndrome with low back pain and radiculopathy radiating down in both legs, here for a caudal epidural steroid injection with epidurolysis. PROCEDURE DESCRIPTION: The patient was seen and identified in the preoperative area. Risks, benefits, complications, and alternatives were discussed with the patient. The patient agreed to proceed with the procedure and signed the con sent. IV was started, and vital signs were stable. Patient was taken to the OR and time out was completed. The patient was placed in the prone position on procedure table and a pillow was placed under the abdomen to reduce lumbar lordosis. The lumbosacral area was prepped and draped in the usual sterile fashion. Vital signs were closely monitored during the procedure. lateral view and the anterior-posterior plates of the sacrum were identified with infiltration of the area overlying the sacral hiatus with 1% lidocaine .A 17 gauge RK epidural needle was used to advance through the sacral hiatus into the caudal epidural space. Omnipaque 180 dye. 2cc was injected and the position of the needle was verified to be in the midline. A Racz catheter was introduced into the epidural space and was advanced towards the L5-S1 interspace under direct fluoroscopic guidance. Multiple passes were made with the catheter for lysis of epidural adhesions. Depo-medrol 40 mg with 3ml of preservative free Lidocaine 1% and 5 ml of preservative free normal saline was injected slowly. Additional spread was seen to L4 under fluoroscopy. The needle and the catheter were withdrawn intact. EPIDUROGRAM: Omnipaque 180 mg dye 2 ml was injected with spread of the dye into the caudal epidural space and with spread cutoff at L5 prior to epidurolysis. Post epidurolysis dye 2 ml was injected and spread was seen to L3-4.There was further spread of the solution together with the dye above the L3 COMPLICATIONS: None. DISPOSITION / PLANS: The patient was placed in a supine position and transferred to the recovery area in a stable condition for observation and was discharged from the recovery room after meeting discharge criteria. Home discharge instructions given to the patient by the staff. The patient was reexamined prior to discharge. The patient will schedule a follow up in the clinic in 2-4 weeks.
[2018-07-06 12:48] VITALS: BP 127/75; PULSE 52
[2018-07-06] MEDS ORDERED: KETOROLAC 30 MG/ML 1 ML VIAL IVP ONE (12:52)
--- NOTE | 2018-07-06 12:58 | FL ---
EXAMINATION TYPE: FL guided pain mgmt statistic DATE OF EXAM: 07/06/2018 HISTORY: Pain 4sec fluoro time,3 images scanned
== END 2018-07-06 13:30 | disposition home or self-care (01) ==
LOC: ORPAIN 10:10
PROVIDERS: ATTEND Specialist
DX: M46.1 Sacroiliitis, not elsewhere classified (principal); M96.1 Postlaminectomy syndrome, not elsewhere classified; M54.10 Radiculopathy, site unspecified; I25.10 Atherosclerotic heart disease of native coronary artery without angina pectoris; I10 Essential (primary) hypertension; E11.9 Type 2 diabetes mellitus without complications
CPT/HCPCS: 62264; J2250; J1030; J3010; J1885; Q9966; C1894; 62323; 99152

== ENCOUNTER → 2018-07-20 | Outpatient (CLI) | payer MEDICARE ==
[2018-07-20 13:21] VITALS: BP 129/74; PULSE 67; RESP 16
--- NOTE | 2018-07-20 13:53 | P.PAINPG ---
Subjective Progress Note Date: 07/20/18 this is a follow-up visit for this 73 years old male with a chronic history of severe low back pain, and diagnosed with postlaminectomy pain syndrome lumbar area and, bilateral sacroiliitis, with done bilateral sacroiliac joint steroid injection patient had no benefit from it, and recently we have done, epidural steroid injection with lysis of epidural adhesions, he reports he had good pain relief, he denies any motor or sensory deficits he denies any change in the bowel movement or urination, no fever or night sweats Objective - Vital Signs Vital signs: Vital Signs Temp Pulse 67 07/20/18 13:12 Resp 16 07/20/18 13:12 BP 129/74 07/20/18 13:12 Pulse Ox Intake & Output 07/19/18 07/20/18 07/20/18 18:59 06:59 18:59 Weight 83.915 kg - Exam Physical Examinations : -Constitutiona : Cooperative , not in acute distress . -HEENT : nech ; supple , no Lymphadenopathy , normal thyroid size . eyes : no ptosis , no icterus, no photophobia . ENT : normal of hearing , normal oropharynx , no Thrush . - Respiratory : Chest clear to auscultations Bilaterally , no wheezing , no Rhonchi . - Cardiovascula : regular rate and rhythem , S1 , S2 , no S3 , no S4. - Gastrointestina : abdomen soft no tenderness , bowel sounds , no organomegally . - Genitourinary : Defferred . - neurologic : Cranial nerve II to XII intact , no focal neurological deffecit . -psychatric : alert , oriented X 3 , appropriate affect , intact judgment and insight . -Lymphatic : no Lymphadenopathy . - musculoskeltal : Lumber spine moter stegnth lower extremities ,thigh and legs 5/5 Right side , 5/5 Left side deep tendon reflexes : normal Knee Jerk , normal ankle Jerk positive dysesthesia on the right L3 4 dermatomal distribution positive lumber facet Loading Test Range of motion of the lumbar spine Flexion 30 degrees, extension 10 degrees strait leg raising test , positive at 45 degree on the left side and its possible 60 on the right [place] test positive RT and positive LT . tenderness over the Sacroiliac joint on the R and L sides [place] test positive bilaterally. Seated flexion test positive bilaterally. Assessment and Plan Plan: assessment and plan= failed back surgery syndrome and lumbar area, bilateral sacroiliitis Patient had no benefit from bilateral sacroiliac joint steroid injection he will be good candidate to have repeat lumbar epidural steroid injection with lysis of epidural adhesions Recommend continue current pain medication [place] 7.5/05/20/1950 every 6 hours, and Lyrica 50 mg twice a day He denies any side effect of the medication and is getting prescription refills from his primary care Time with Patient: Less than 30 PQRS Measure Charge Sheet Measure #130: Documentation of Current Meds in Medical Chart: Patient's medications documented in chart Measure #226: Tobacco Use: Screen & Cessation Intervention: Pt not a tobacco user Measure #111: Pneumonia Vaccination: Pneumococcal vaccine administered or previously received Measure #47: Advance Care Plan: Advance care planning discussed & documented, pt chose/unable to give Measure #412: Opioid Treatment Agreement: No documentation of signed opioid treatment agreement Measure #408: Opioid Therapy Follow-up Evaluation: Patient had NO f/u eval minimum every 3 months during opioid therapy Measure #317: Preventitive Care & Scrn High Bld Press & F/U: Normal blood pressure, f/u not required Measure #128: Body Mass Index (BMI) Screening & Follow-up: BMI documented ABOVE normal parameters - f/u documented Measure #131: Pain Assessment & Follow-up: Pain positive & plan documented, Follow-up scheduled Measure #431: Unhealthy Alcohol Use Preventative Care & Scrn: Patient not identified as an unhealthy alcohol user PQRS Narrative: Smoking Status Never smoker Do You Want the Pneumonia No Vaccine AT THIS TIME? Blood Pressure 129/74 Pain Intensity [Bilateral 4 Lower Back] Scale Used Numeric (1 - 10) Hx Alcohol Use (MH) No Home Medications: Ambulatory Orders Quinapril HCl 40 mg PO DAILY 01/17/14 glipiZIDE [Glucotrol] 10 mg PO BID 01/17/14 amLODIPine BESYLATE [Norvasc] 10 mg PO DAILY 04/19/14 Atorvastatin [Lipitor] 40 mg PO DAILY 08/08/14 Pregabalin [Lyrica] 150 mg PO DAILY 06/21/16 Omeprazole 20 mg PO DAILY 08/28/17 HYDROcodone/APAP 7.5-325MG [[place] 7.5-325] 1 tab PO QID PRN 10/16/17 metFORMIN HCL 1,000 mg PO BID #0 08/18/18 Nitroglycerin Sl Tabs [Nitrostat] 0.4 mg SUBLINGUAL Q5M PRN 03/02/18 Controlled Substance Measures - Controlled Substance Measures Is patient prescribed a controlled substance at discharge?: No
== END ==
LOC: PNWHC3 12:45
PROVIDERS: ATTEND Specialist
DX: M46.1 Sacroiliitis, not elsewhere classified (principal); M96.1 Postlaminectomy syndrome, not elsewhere classified; Z79.899 Other long term (current) drug therapy; Z79.84 Long term (current) use of oral hypoglycemic drugs
CPT/HCPCS: 99211

== ENCOUNTER 2018-07-29 09:40 | Day surgery (SDC) | payer MEDICARE ==
[2018-07-24 12:13] VITALS: BMI 27.3
[2018-07-29 10:25] VITALS: TEMP 96.3
[2018-07-29] MEDS ORDERED: LIDOCAINE 1% 20 ML VIAL (10MG/ML) FOR IV START INTRADERMA ONE (10:26)
[2018-07-29 10:27] LABS: Glucose,Whole Blood 154 mg/dL (75-99)
[2018-07-29] MEDS ORDERED: KETOROLAC 30 MG/ML 1 ML VIAL IVP STA (11:40)
--- NOTE | 2018-07-29 11:41 | P.PCN ---
Date of Procedure: 07/29/18 Procedure(s) Performed: PREOP DIAGNOSIS: 1- Lumbar postlaminectomy syndrome. POSTOP DIAGNOSIS:1- Lumbar postlaminectomy syndrome. PROCEDURE: 1-Caudal epidural steroid injection with epidurolysis and epidurogram under fluoroscopic guidance. 2-caudal epidurogram. ANESTHESIA: Local with 1% lidocaine 3 ml ,and moderate sedation, with Versed 2 mg and fentanyl 100 g. EBL: Minimal. PROCEDURE INDICATION: The patient with post-laminectomy syndrome with low back pain and radiculopathy radiating down in both legs, here for a caudal epidural steroid injection with epidurolysis. PROCEDURE DESCRIPTION: The patient was seen and identified in the preoperative area. Risks, benefits, complications, and alternatives were discussed with the patient. The patient agreed to proceed with the procedure and signed the consent. IV was started, and vital signs were stable. Patient was taken to the OR and time out was completed. The patient was placed in the prone position on procedure table and a pillow was placed under the abdomen to reduce lumbar lordosis. The lumbosacral area was prepped and draped in the usual sterile fashion. Vital signs were closely monitored during the procedure. lateral view and the anterior-posterior plates of the sacrum were identified with infiltration of the area overlying the sacral hiatus with 1% lidocaine .A 17 gauge RK epidural needle was used to advance through the sacral hiatus into the caudal epidural space. Omnipaque 180 dye. 2cc was injected and the position of the needle was verified to be in the midline. A Racz catheter was introduced into the epidural space and was advanced towards the L5-S1 inter space under direct fluoroscopic guidance. Multiple passes were made with the catheter for lysis of epidural adhesions. Depo-Medrol 40 mg with 3ml of preservative free Lidocaine 1% and 5 ml of preservative free normal saline was injected slowly. Additional spread was seen to L4 under fluoroscopy. The needle and the catheter were withdrawn intact. EPIDUROGRAM: Omnipaque 180 mg dye 2 ml was injected with spread of the dye into the caudal epidural space and with spread cutoff at L5 prior to epidurolysis. Post epidurolysis dye 2 ml was injected and spread was seen to L3-4.There was further spread of the solution together with the dye above the L3 COMPLICATIONS: None. DISPOSITION / PLANS: The patient was placed in a supine position and transferred to the recovery area in a stable condition for observation and was discharged from the recovery room after meeting discharge criteria. Home discharge instructions given to the patient by the staff. The patient was reexamined prior to discharge. The patient will schedule a follow up in the clinic in 2-4 weeks.
[2018-07-29] MEDS ORDERED: IV FLUID CONTINUATION 1,000 ML IV ONE ×2 (11:49)
--- NOTE | 2018-07-29 11:52 | FL ---
EXAMINATION TYPE: FL guided pain mgmt statistic DATE OF EXAM: 07/29/2018 CLINICAL HISTORY: Sacral pain. TECHNIQUE: Fluoroscopy. COMPARISON: None. FINDINGS: Fluoroscopic guidance was provided during pain relief procedure performed by Dr. Vaca . A total of 6 seconds of fluoroscopic time was utilized during the procedure and 3 spot images are acquired. Images acquired shows needle localization at level of sacrum with extensive surgical bennett e in the lumbar spine noted. IMPRESSION: As Above.
[2018-07-29] MEDS ORDERED: KETOROLAC 30 MG/ML 1 ML VIAL IVP ONE (12:05)
[2018-07-29 12:07] VITALS: BP 129/76; PULSE 56; RESP 16
== END 2018-07-29 12:25 | disposition home or self-care (01) ==
LOC: ORPAIN 09:40
PROVIDERS: ATTEND Specialist
DX: M96.1 Postlaminectomy syndrome, not elsewhere classified (principal); M54.5 Low back pain; M54.16 Radiculopathy, lumbar region; M53.3 Sacrococcygeal disorders, not elsewhere classified; M46.1 Sacroiliitis, not elsewhere classified; I10 Essential (primary) hypertension; E11.9 Type 2 diabetes mellitus without complications; Z98.1 Arthrodesis status
CPT/HCPCS: 62264; J2250; J1030; J3010; J1885; Q9966; C1894; 62323; 99152

== ENCOUNTER → 2018-08-17 | Outpatient (CLI) | payer MEDICARE ==
[2018-08-17 12:21] VITALS: BP 130/76; PULSE 71; RESP 16
--- NOTE | 2018-08-17 12:39 | P.PN ---
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 The patient complaining of pain in the lower back across his lower back with occasional radiation to the right knee with chronic numbness in the right thigh after one of his back surgeries. The patient had caudal epidural steroid injection twice with only 2 weeks of good pain relief however his back pain is back to its baseline right now. He takes [place] 7.5 mg 4 times a day and he gets that from his primary care physician. He denies any bowel or bladder dysfunction however he feels more imbalance. Today, pt denies new-onset weakness, bowel/bladder incontinence, or any other signs or symptoms of cauda equina syndrome. There are no signs of acute intoxication, and no indications of medication diversion or overuse. In addition to above, 13-point review of systems is also negative for chest pain, shortness of breath, changes in vision, changes in hearing, new onset weakness, abdominal pain, diarrhea, extreme fatigue, malaise, fever, skin changes, homicidal or suicidal ideation, or bowel or bladder incontinence. Vital Signs: Reviewed in EMR Gen: AAOx3, NAD HEENT: PERRLA,hearing grossly normal Pulm: resp unlabored Heart: Regular Neck: supple, trachea midline Neuro exam of the lower extremities: Normal muscle strength bilaterally and absent deep tendon reflexes Straight leg raising test: Negative bilaterally Thee's test: Positive bilaterally Positive tenderness around the sacroiliac joints bilaterally Tenderness in the paravertebral musculature: Positive on both sides of the lumbar spine Neuro: CN II-XII grossly intact, Imaging: Reviewed in EMR/chart Assessment: Failed back surgery syndrome Diabetes Plan: 1. Explanation: Opioid and psychological risk scores were reviewed. Diagnoses, prognoses, and multiple treatment options including but not limited to physical therapy, interventional therapies, adjuvant medical therapies, narcotic medication therapies, and surgery were discussed with the patient and all questions were answered to the patient's satisfaction. 2. Opioid agreement: Signed with the patient and the patient is warned not to use opioids while driving or before driving and not to combine opioids with benzodiazepines or alcohol. 3. Counseling: The patient was counseled extensively on SMOKING CESSATION, BODY MASS INDEX, EXERCISE. Specifically, the patient was instructed regarding the importance of smoking cessation, obesity, and exercise in the context of both chronic pain and overall health. 4. Procedures: Schedule for bilateral sacroiliac joint steroid injection under fluoroscopic guidance with reduced the dose of steroids due to the patient's diabetes. We will used 20 mg of Kenalog in each joint. 5. Consultations: None 6. Investigations: None 7. Medications: Continue with Augusta as per his primary care physician 8. Disposition: Return to the above-mentioned procedure as soon as possible 9. Maps were reviewed and were appropriate. PQRS measures: 1-Patient's medications are documented in the chart. 2-Tobacco use is negative, counseling given 3-Patient has had a pneumococcal vaccine. 4-Advanced care planning discussed, patient unable to give 5-Opioid contract signed with the patient. 6-Pain positive, follow-up visit or procedure scheduled 7-Patient's blood pressure measured and documented above/ normal limits. The patient will follow up with his primary care physician. 8-Patient's weight was measured, and body mass index ABOVE the normal limits, and counseling was done. Patient instructed to follow up with PCP. 9-Patient WAS NOT identified as an unhealthy alcohol user. Objective - Vital Signs Vital signs: Vital Signs Temp Pulse 71 08/17/18 12:11 Resp 16 08/17/18 12:11 BP 130/76 08/17/18 12:11 Pulse Ox Intake & Output 08/16/18 08/17/18 08/17/18 18:59 06:59 18:59 Weight 84.368 kg
== END | disposition home or self-care (01) ==
LOC: PNWHC3 12:00
PROVIDERS: ATTEND Anesthesiology
DX: M96.1 Postlaminectomy syndrome, not elsewhere classified (principal); E11.9 Type 2 diabetes mellitus without complications
CPT/HCPCS: 99211

== ENCOUNTER 2018-09-08 08:45 | Day surgery (SDC) | payer MEDICARE ==
[2018-09-08] MEDS ORDERED: LACTATED RINGERS 1,000 ML IV SCH (08:52)
[2018-09-08 08:56] VITALS: BMI 27.3
[2018-09-08 09:05] VITALS: TEMP 97
[2018-09-08 09:05] LABS: Glucose,Whole Blood 163 mg/dL (75-99)
[2018-09-08] MEDS ORDERED: LIDOCAINE 1% 20 ML VIAL (10MG/ML) FOR IV START INTRADERMA ONE (09:05)
--- NOTE | 2018-09-08 09:24 | P.PCN ---
Date of Procedure: 09/08/18 Procedure(s) Performed: Procedure= bilateral sacral iliac joints steroid injection under fluoroscopy guidance Preoperative diagnosis= 1-sacroiliitis 2-lumbar failed back surgery syndrome Postoperative diagnosis=1-sacroiliitis 2-lumbar failed back surgery syndrome Complication = none Condition= stable Anesthesia= moderate sedation with intravenous Versed 2 mg , and fentanyl 100 micrograms and local infiltration with lidocaine 1% 4 mL Indication for the procedure= patient complaining of low back pain , examination was positive for severe tenderness over the sacroiliac joints bilaterally and patient diagnosed with sacroiliitis, for this reason he/ she was good candidate for sacroiliac joint steroid injection. Description of the procedure= procedure risk and benefits discussed with the patient, including but not limited, risk of infection and bleeding, and ALLERGIC reaction to the medication and not complete pain relief and patient agreed with the preceding patient taken to the operating room, placed in prone position or standard monitors applied to the patient then after induction of anesthesia back prepped with chlorhexidine 3 times , Then under strict sterile technique, first I did the right sacroiliac joint the which was identified under fluoroscopy guidance been local infiltration of the skin and subcu interstitial with lidocaine 1% then 22-gauge Quincke Needle advanced slowly under fluoroscopy and placed in the right sacroiliac joint needle placement confirmed with AP and oblique and lateral view and after appropriate needle placement confirmed and after negative aspiration, or heme , then Ropivacaine 0.5% 3 mL, and 20 mg of Depo-Medrol mixed together and injected in the right sacroiliac joint after negative aspiration patient tolerated the procedure well without any complication. Then the left sacroiliac joint steroid injection done under strict sterile technique local infiltration of the skin and subcu interstitial at the location of the left sacroiliac joint then a 22-gauge Quincke Needle advanced slowly under fluoroscopy time placed in the left sacroiliac joint, needle placement confirmed with AP and oblique and lateral view then after appropriate needle placement confirmed and after negative aspiration 0.5% Marcaine 3 mL and 20 mg of Depo-Medrol injected in the left sacroiliac joint after negative aspiration patient tolerated the procedure well that any complications and she will follow up in clinic 3 weeks
[2018-09-08] MEDS ORDERED: IV FLUID CONTINUATION 1,000 ML IV ONE (09:27)
[2018-09-08 09:56] VITALS: BP 101/66; PULSE 80; RESP 18
--- NOTE | 2018-09-08 12:13 | FL ---
EXAMINATION TYPE: FL guided pain mgmt statistic DATE OF EXAM: 09/08/2018 HISTORY: Flouroscopy time 10 seconds of fluoroscopy provided. IMPRESSION: 1. Fluoroscopy time.
== END 2018-09-08 10:19 | disposition home or self-care (01) ==
LOC: ORPAIN 08:45
PROVIDERS: ATTEND Specialist
DX: M46.1 Sacroiliitis, not elsewhere classified (principal); M96.1 Postlaminectomy syndrome, not elsewhere classified; Z98.1 Arthrodesis status; E11.9 Type 2 diabetes mellitus without complications
CPT/HCPCS: G0260; J2250; J1030; J3010; 99152

== ENCOUNTER → 2018-09-22 | Outpatient (CLI) | payer MEDICARE ==
[2018-09-22 12:59] VITALS: BP 115/71; PULSE 77; RESP 18
--- NOTE | 2018-09-23 14:20 | P.PAINPG ---
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 He recently underwent bilateral sacroiliac joint injections on 09/08/2018. He reports ongoing pain relief from these procedures, pain score is 4.5, down from 7 on 10. The patient was told that for the procedure, he did not receive any cortisone due to concerns for his blood sugar. The patient reports that he received at least 50% relief from this procedure. On review of records, it appears that patient had SI joint injections done in May 2018 with over 50% relief of pain. Patient would be a good candidate for radiofrequency ablation of the L5 dorsal ramus, S1, S2, S3 lateral branches. He takes [place] 7.5 mg 4 times a day and he gets that from his primary care physician. He denies any bowel or bladder dysfunction however he feels more imbalance. Today, pt denies new-onset weakness, bowel/bladder incontinence, or any other signs or symptoms of cauda equina syndrome. There are no signs of acute intoxication, and no indications of medication diversion or overuse. In addition to above, 13-point review of systems is also negative for chest pain, shortness of breath, changes in vision, changes in hearing, new onset wea kness, abdominal pain, thoughts of suicide, homicidal diarrhea, extreme fatigue, malaise, fever, skin changes, homicidal or suicidal ideation, or bowel or bladder incontinence. Physical exam: Vital Signs: Reviewed in EMR Gen: AAOx3, NAD HEENT: PERRLA,hearing grossly normal Pulm: resp unlabored Heart: No pedal edema Neck: supple, trachea midline Neuro exam of the lower extremities: Normal muscle strength bilaterally and absent deep tendon reflexes Straight leg raising test: Negative bilaterally Thee's test: Positive bilaterally left greater than right Positive tenderness around the sacroiliac joints bilaterally Negative facet loading bilaterally Neuro: CN II-XII grossly intact, reduced sensation to light touch noted in bilateral lateral thighs Imaging: Reviewed in EMR/chart Assessment: Failed back surgery syndrome Bilateral sacroiliitis left greater than right Diabetes Plan: 1. Explanation: Opioid and psychological risk scores were reviewed. Diagnoses, prognoses, and multiple treatment options including but not limited to physical therapy, interventional therapies, adjuvant medical therapies, narcotic medication therapies, and surgery were discussed with the patient and all questions were answered to the patient's satisfaction. 2. Opioid agreement: None 3. Counseling: The patient was counseled extensively on weight loss, EXERCISE. Specifically, the patient was instructed regarding the importance of exercise and weight loss in the context of both chronic pain and overall health. 4. Procedures: Schedule for SI joint radiofrequency ablation (dorsal ramus of L5, lateral branches of S1, S2, S3)- left side first 5. Consultations: None 6. Investigations: None 7. Medications: Continue with Michelle as per his primary care physician 8. Disposition: Return to the above-mentioned procedure as soon as possible 9. Maps were reviewed and were appropriate. Objective - Vital Signs Vital signs: Vital Signs Temp Pulse 77 09/22/18 12:50 Resp 18 09/22/18 12:50 BP 115/71 09/22/18 12:50 Pulse Ox 95 09/22/18 12:50 Intake & Output 09/22/18 09/23/18 09/23/18 18:59 06:59 18:59 Weight 82.554 kg PQRS Measure Charge Sheet Measure #130: Documentation of Current Meds in Medical Chart: Patient's medications documented in chart Measure #226: Tobacco Use: Screen & Cessation Intervention: Pt not a tobacco user Measure #111: Pneumonia Vaccination: Pneumococcal vaccine administered or previously received Measure #47: Advance Care Plan: Advance care planning discussed & documented, pt chose/unable to give Measure #412: Opioid Treatment Agreement: No documentation of signed opioid treatment agreement Measure #317: Preventitive Care & Scrn High Bld Press & F/U: Normal blood pressure, f/u not required Measure #128: Body Mass Index (BMI) Screening & Follow-up: BMI documented within normal parameters Measure #131: Pain Assessment & Follow-up: Pain positive & plan documented, Follow-up scheduled Measure #431: Unhealthy Alcohol Use Preventative Care & Scrn: Patient not identified as an unhealthy alcohol user PQRS Narrative: Smoking Status Never smoker Blood Pressure 115/71 Pain Intensity [Bilateral 4 Lower Back] Scale Used Numeric (1 - 10) Hx Alcohol Use (MH) No Home Medications: Ambulatory Orders Quinapril HCl 40 mg PO DAILY 01/17/14 glipiZIDE [Glucotrol] 10 mg PO BID 01/17/14 amLODIPine BESYLATE [Norvasc] 10 mg PO DAILY 04/19/14 Atorvastatin [Lipitor] 40 mg PO DAILY 08/08/14 Pregabalin [Lyrica] 150 mg PO DAILY 06/21/16 Omeprazole 20 mg PO DAILY 08/28/17 HYDROcodone/APAP 7.5-325MG [[place] 7.5-325] 1 tab PO QID PRN 10/16/17 metFORMIN HCL 1,000 mg PO BID #0 10/18/17 Nitroglycerin Sl Tabs [Nitrostat] 0.4 mg SUBLINGUAL Q5M PRN 03/02/18 Controlled Substance Measures - Controlled Substance Measures Is patient prescribed a controlled substance at discharge?: No
== END | disposition home or self-care (01) ==
LOC: PNWHC3 12:23
PROVIDERS: ATTEND Anesthesiology
DX: M96.1 Postlaminectomy syndrome, not elsewhere classified (principal); M46.1 Sacroiliitis, not elsewhere classified; E11.9 Type 2 diabetes mellitus without complications; Z79.899 Other long term (current) drug therapy; Z79.84 Long term (current) use of oral hypoglycemic drugs; Z79.891 Long term (current) use of opiate analgesic
CPT/HCPCS: 99211

== ENCOUNTER → 2018-09-28 | Outpatient (CLI) | payer MEDICARE ==
[2018-09-28 11:41] LABS: African American GFR (CKD) 85.6 (60.0-200.0); Albumin 4.7 g/dL (3.80-4.90); Albumin/Globulin Ratio 2.61 (1.60-3.17); Anion Gap 10.7 mmol/L (4.00-12.00); Calcium 9.6 mg/dL (8.7-10.3); Carbon Dioxide 25.3 mmol/L (21.6-31.8); Globulin 1.8 g/dL (1.6-3.3); LDL Cholesterol,Calculated 66.8 mg/dL (0.0-131.0); Total Bilirubin 0.4 mg/dL (0.2-1.2); Total Protein 6.5 g/dL (6.2-8.2); VLDL Calculation 48.2 mg/dL (5.00-40.00)
[2018-09-28 11:48] LABS: Vitamin D 25 Hydroxy 16.7 ng/mL (30.0-100.0)
[2018-09-28 15:27] LABS: Hemoglobin A1C 7.9 % (4.0-6.0)
== END | disposition home or self-care (01) ==
LOC: LABWHC1 07:16
PROVIDERS: ATTEND Internal Medicine Interventional Cardiology
DX: E11.65 Type 2 diabetes mellitus with hyperglycemia (principal); E78.2 Mixed hyperlipidemia; E55.9 Vitamin D deficiency, unspecified; E53.8 Deficiency of other specified B group vitamins
CPT/HCPCS: 36415; 80053; 80061; 82043; 82306; 82570; 82607; 83036

== ENCOUNTER 2018-10-07 09:07 | Day surgery (SDC) | payer MEDICARE ==
[2018-10-07] MEDS ORDERED: LACTATED RINGERS 1,000 ML IV ONE (09:22)
[2018-10-07 09:23] VITALS: TEMP 97.6
[2018-10-07] MEDS ORDERED: LIDOCAINE 1% 20 ML VIAL (10MG/ML) FOR IV START INTRADERMA ONE (09:23)
[2018-10-07 09:29] LABS: Glucose,Whole Blood 117 mg/dL (75-99)
--- NOTE | 2018-10-07 10:56 | P.PCN ---
Date of Procedure: 10/07/18 Procedure(s) Performed: RF of the Lateral Branch of S1, S2, and S3, left Date of the procedure: 10/07/2018 PREOPERATIVE DIAGNOSIS: 1. Lumbosacral Spondylosis. 2. Bilateral sacroiliitis. POSTOPERATIVE DIAGNOSIS: 1-Lumbosacral arthropathy. 2-bilateralsacroiliitis. PROCEDURES: 1. Left multi-site radiofrequency thermocoagulation/ablation of the S1, S2, and S3 lateral branchs. The procedure was performed using fluoroscopic guidance during needle placement to assure proper position and maximize safety. PROVIDER: Adonis Aggarwal M.D. ANESTHESIA: Local Anesthesia, moderate sedation with versed and fentanyl EBL: Minimal INDICATION/MEDICAL NECESSITY: History of low back unresponsive to more conservative treatments. The patient reported more than 50% relief of pain symptoms following 2 previous diagnostic blocks. PROCEDURE DESCRIPTION: The patient was seen and identified in the preoperative area. Risks, benefits, complications, and alternatives were discussed with the patient. The patient agreed to proceed with the procedure and signed the consent. Vital signs were checked before and after the procedure and they remained stable. Patient was brought to the procedure room and time out was completed. The patient was placed in the prone position on the procedure table and a pillow was placed under the abdomen to reduce lumbar lordosis. The lumbosacral area was prepped and draped in the usual sterile fashion. Critical pause was taken. The lateral margins of the left S1, S2, and S3 foramina were identified using AP fluoroscopy. Under fluoroscopic guidance, [address] needles were [address] lateral to the S1, S2, and S3 sacral foramen with 1 cm apart.. Motor stimulation was done at 2 Hz. No radicular symptoms or paresthesias were produced during the testing. Then multiple bipolar lesions were performed at 150 seconds at 80 degrees. The needles were leapfrogged to continue the strip lesion. The needle were subsequently withdrawn. COMPLICATIONS: The patient tolerated the procedure well without any acute complications. DISPOSTION/PLAN: The patient was returned to the recovery area after the procedure in a stable condition for observation. Patient was reexamined prior to discharge. Patient was then discharged home, accompanied by an adult, after meeting discharged criteria. Discharge instructions were give to the patient by the staff. Patient was specifically instructed not to drive today and to rest for the rest of the day. The patient will schedule a follow up visit in the clinic within the next four weeks. L5 dorsal ramus was not lesioned given the proximity to previous hardware
[2018-10-07] MEDS ORDERED: IV FLUID CONTINUATION 1,000 ML IV ONE ×2 (11:04)
--- NOTE | 2018-10-07 11:04 | FL ---
EXAMINATION TYPE: FL guided pain mgmt statistic DATE OF EXAM: 10/07/2018 CLINICAL HISTORY: Back pain TECHNIQUE: Fluoroscopy. COMPARISON: None. FINDINGS: Fluoroscopic guidance was provided during procedure performed by Dr. Aggarwal. A total of 16 seconds of fluoroscopic time was utilized during the procedure and 3 spot images was acquired demo nstrating multiple level localization over the sacrum. IMPRESSION: As Above.
[2018-10-07 11:07] VITALS: RESP 16
[2018-10-07 11:29] VITALS: BP 119/66; PULSE 69
== END 2018-10-07 11:35 | disposition home or self-care (01) ==
LOC: ORPAIN 09:07
PROVIDERS: ATTEND Student in an Organized Health Care Education/Training Program
DX: M47.817 Spondylosis without myelopathy or radiculopathy, lumbosacral region (principal); M46.1 Sacroiliitis, not elsewhere classified; M96.1 Postlaminectomy syndrome, not elsewhere classified; Z98.1 Arthrodesis status; E11.9 Type 2 diabetes mellitus without complications
CPT/HCPCS: 64635; 64640; J2250; 99152; 99153

== ENCOUNTER 2018-10-22 08:19 | Day surgery (SDC) | payer MEDICARE ==
[2018-10-21 12:04] VITALS: BMI 27.0
[2018-10-22 09:05] LABS: Glucose,Whole Blood 143 mg/dL (75-99)
[2018-10-22] MEDS ORDERED: LIDOCAINE 1% 20 ML VIAL (10MG/ML) FOR IV START INTRADERMA ONE (09:08)
[2018-10-22 09:10] VITALS: RESP 16; TEMP 97.4
[2018-10-22] MEDS ORDERED: IV FLUID CONTINUATION 300 ML IV ONE (10:13)
--- NOTE | 2018-10-22 10:13 | P.PCN ---
Date of Procedure: 10/22/18 Procedure(s) Performed: PREOPERATIVE DIAGNOSIS: 1-Lumbosacral spondylosis with facet arthropathy without myelopathy. 2- sacroiliit. post operative Diagnosis: . 1-Lumbosacral spondylosis with facet arthropathy without myelopathy. 2- sacroiliit. PROCEDURES: 1- Right radiofrequency thermocoagulation/ablation of the L5 dorsal ramus. 2- Right multi-site radiofrequency thermocoagulation/ablation of the S1, S2, and S3 lateral branchs. The procedure was performed using fluoroscopic guidance during needle placement to assure proper position and maximize safety (fluoroscopy images available in radiology department) ANESTHESIA = moderate sedation with intravenous versed 2 mg and Fentanyle 100 mcg EBL: NONE INDICATION/MEDICAL NECESSITY: History of low back pain secondary to bilateral sacroiliitis and lumbosacral arthropathy unresponsive to more conservative treatments. The patient reported more than 50% relief of pain symptoms following 2 previous diagnostic blocks with Bupivacaine. PROCEDURE DESCRIPTION: The patient was seen and identified in the preoperative area. Risks, benefits, complications, and alternatives were discussed with the patient. The patient agreed to proceed with the procedure and signed the consent. Vital signs were checked before and after the procedure and they remained stable. Patient ambulated to the procedure room and time out was completed. The patient was placed in the prone position on the procedure table and a pillow was placed under the abdomen to reduce lumbar lordosis. The lumbosacral area was prepped and draped in the usual sterile fashion. Critical pause was taken. L5 Dorsal Ramus RF: Using right oblique fluoroscopy, the junction of the transverse process and the superior articular process of the right S1 vertebra, which correspond to the fluoroscopic image of the "eye of the Naveed dog" was identified. Subsequently, a 10-cm 20 -gauge radiofrequency cannula with a 10-mm active tip was advanced under fluoroscopic guidance until contact was made with periosteum. At this level, the Sensory testing of the L5 dorsal ramus was performed at 50 Hz and 0 to 1 volt with production of concordant pain starting at 0.5 volt. Motor stimulation was done at 2.5 Hz with stimulation of mulitifidus muscle contration . No radicular symptoms or paresthesias were produced during the testing. Subsequently, the L5 dorsal ramus was subjected to a radiofrequency ablation at 80 degree celsius for 90 seconds . after 0.5% Bupivacaine 1 ml injected at each level after negative aspirations . S1, S3, and S3 Lateral Branch RF: The sacral foramina of S1-S2 and S3 was not able to visualize, because patient had pelvic gases , then using AP fluoroscopy. Under fluoroscopic guidance, three 10-cm 20 -gauge radiofrequency active tip needles. 6 needle was placed at the medial edge of the right sacroiliac joint , starting from the inferior border of the joint going superiorly , and after the needle was placed At this level, the sensory testing of the S1 , S2 ,S3 lateral branch was performed at 50 Hz and 0 to 1 volt at the three levels with production of concordant pain starting at 0.5 volt. Motor stimulation was done at 2.5 Hz. No radicular symptoms or paresthesias were produced during the testing. Subsequently, the Right S1 ,S2 , S3 lateral branch was subjected to a radiofrequency ablation at a mode of 90 seconds at 80 degrees Celsius at the 6 levels after negative motor and sensory testing and after injecting 0.5 ml of preservative free Bupivacaine 0.5 %. (Total of 7 ML of ropivacaine 0.5% used mixed with 40 mg of Depo-Medrol ). COMPLICATIONS: The patient tolerated the procedure well without any acute complications. DISPOSTION/PLAN: The patient ambulated to the recovery area after the procedure in a stable condition for observation. Patient was reexamined prior to discharge. Patient was observed for 30 minutes in the recovery area and was discharged home, accompanied by an adult, after meeting discharged criteria. Discharge instructions were give to the patient by the staff. Patient was specifically instructed not to drive today and to rest for the rest of the day. The patient will schedule a follow up visit in the clinic in weeks or earlier if needed.
[2018-10-22 10:33] VITALS: BP 122/77; PULSE 58
--- NOTE | 2018-10-22 10:50 | FL ---
Fluoroscopy INDICATION: Pain FINDINGS: Fluoroscopy time: 29 seconds. Images obtained: 6. IMPRESSIONS: 1. Documentation of fluoroscopy.
== END 2018-10-22 10:49 | disposition home or self-care (01) ==
LOC: ORPAIN 08:19
PROVIDERS: ATTEND Specialist
DX: M47.817 Spondylosis without myelopathy or radiculopathy, lumbosacral region (principal); M46.1 Sacroiliitis, not elsewhere classified; E11.9 Type 2 diabetes mellitus without complications
CPT/HCPCS: 64640 ×3; 64635; J2250; J1030; J3010; 99152; 99153

== ENCOUNTER → 2018-11-10 | Outpatient (CLI) | payer MEDICARE ==
[2018-11-10 12:50] VITALS: BP 97/60; PULSE 68; RESP 18
--- NOTE | 2018-11-10 13:10 | P.PN ---
Progress Note - Text Progress Note Date: 11/10/18 Progress Note - Text 73-year-old male status post bilateral radio efficacy ablation of sacroiliac lateral branches. He is reporting marginal relief from both procedures right side was more beneficial than the left. He has been doing more activity around the house as of late. He still having complaints of generalized low back pain but also generalized weakness in his lower extremities. She does have a history of a C5-C6 anterior cervical disc fusion that was done by Dr. Garcia. He had an MRI done in August 2017 that showed moderate central canal stenosis at C6-C7. He has been noticing gait alterations over the past 12-18 months. He has a sensation of walking as if he is "drunk". He denies any bowel or bladder incontinence, any saddle anesthesia, nausea, vomiting, alterations in hearing. In addition to above, 13-point review of systems is also negative for chest pain, shortness of breath, changes in vision, changes in hearing, new onset weakness, abdominal pain, diarrhea, extreme fatigue, malaise, fever, skin changes, homicidal or suicidal ideation, or bowel or bladder incontinence. Vital Signs: Reviewed in EMR Gen: WDWN, AAOx3, NAD HEENT: NCAT, EOMI, hearing grossly normal Pulm: resp unlabored Abd: soft, NT, ND Neck: supple, trachea midline, surgical incision from ACDF intact. ROM in flexion lumbar spine: reduced ROM in extension lumbar spine: reduced Lumbar paravertebral tenderness: + Facet loading: + bilateral SI joint tenderness: + R > L Thee's test: Positive Straight leg raise: Negative bilateral Musculoskeletal exam: 4+ muscle strength upper and lower extremities which include bicep, tricep, quadriceps, dorsiflexion, plantar flexion. Biceps hard to listen upper extremities 2 out of 4 bilaterally patellar reflexes. Positive Hernandez on right, negative Lhermitte sign, negative myoclonus Neuro: antalgic gait. No focal deficits. Imaging: MRI cervical spine: 1. Postsurgical changes at C5-C6, moderate stenosis at C6-C7. Assessment: 1. Lumbar post laminectomy syndrome 2. Cervical spinal stenosis 3. Lumbar spondylosis 4. Lumbosacral spondylosis 5. Cervical spondylosis Plan: 1. Explanation: Opioid and psychological risk scores were reviewed. Diagnoses, prognoses, and multiple treatment options including but not limited to physical therapy, interventional therapies, adjuvant medical therapies, narcotic medication therapies, and surgery were discussed with the patient and all questions were answered to the patient's satisfaction. 2. Opioid agreement: 3. Counseling: The patient was counseled extensively regarding exercise, and discussed the importance of maintaining an active lifestyle. 4. Procedures: none at the moment 5. Consultation: I advised patient to follow up with Dr. Garcia to review his MRI findings from August 2017. He did state Dr. Garcia recommended correcting adjacent level breakdown is attributed to his lower extremity weakness. 6. Investigations: None 7. Medications: None 8. Disposition: f/u after follow-up with Dr. Garcia. PQRS measures: 1-Patient's medications are documented in the chart. 2-Tobacco use negativeing given 3-Patient has not had a pneumococcal vaccine. 4-Advanced care planning discussed, patient unable to give. 5-Opioid contract signed with the patient. 6-Pain positive, follow-up visit or procedure scheduled 7-Patient's blood pressure measured and documented, and WNL. 8-Patient's weight was measured, and body mass index ABOVE the normal limits, and counseling was done. Patient instructed to follow up with PCP. 9-Patient WAS NOT identified as an unhealthy alcohol user.
== END | disposition home or self-care (01) ==
LOC: PNWHC3 12:34
PROVIDERS: ATTEND Anesthesiology
DX: M47.816 Spondylosis without myelopathy or radiculopathy, lumbar region (principal); M47.817 Spondylosis without myelopathy or radiculopathy, lumbosacral region; M48.02 Spinal stenosis, cervical region; M47.812 Spondylosis without myelopathy or radiculopathy, cervical region; M96.1 Postlaminectomy syndrome, not elsewhere classified; R53.1 Weakness; Z87.39 Personal history of other diseases of the musculoskeletal system and connective tissue; Z98.890 Other specified postprocedural states
CPT/HCPCS: 99211

== ENCOUNTER → 2018-12-16 | Outpatient (CLI) | payer MEDICARE ==
--- NOTE | 2018-12-16 21:28 | MR ---
EXAMINATION TYPE: MR lumbar spine wo con DATE OF EXAM: 12/16/2018 COMPARISON: 02/12/2018 HISTORY: Neurogenic Claudication CONTRAST: 0 mL intravenous Gadavist. TECHNIQUE: Multiplanar, multisequence images of the lumbar spine were acquired. Exam is limited with pedicle scr ews present L3-S1 causing significant beam hardening artifact. FINDINGS: L5-S1: No significant disc bulge is evident. There is disc space narrowing present. Laminectomy has b een performed. Pseudomeningocele may be posterior to the thecal sac. His measures 1.2 cm and was pres ent previously. Foramen cannot be evaluated due to beam hardening artifact. L4-L5: There is loss of disc height through this level. No focal disc herniation is evident. No AP sp inal canal stenosis is present. This appears to be the superior extent of the pseudomeningocele poste riorly. Foramen are not well visualized. L3-L4: No focal disc herniation or significant disc bulge is evident. Disc space narrowing is present . Mild left foraminal narrowing is evident. L2-L3: Broad-based disc bulge is present. This has anterior thecal sac contact. No AP spinal canal st enosis is identified. Disc space narrowing is present. Severe bilateral foraminal narrowing due to di sc bulging is present. Facet hypertrophy is present with lateral canal narrowing. Ligamentum flavum l axity is evident. L1-L2: Broad-based disc bulge is present with anterior thecal sac flattening. Facet hypertrophy is pr esent. Mild ligamentum flavum laxity is present. Foramen are patent. T12-L1: No focal disc herniation or significant disc bulge is evident. No spinal canal stenosis or ne ural foraminal stenosis is present. IMPRESSION: 1. Postsurgical changes through the lower lumbar spine with pedicle screws at L3-S1 causing some magn etic susceptibility artifact limiting evaluation. 2. 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 3. Facet hypertrophy causing lateral canal narrowing L2-3. 4. Severe foraminal stenosis noted at L2-3 due to disc bulging into the foramen.
== END | disposition home or self-care (01) ==
LOC: RADMRIMAIN 10:14
DX: M48.062 Spinal stenosis, lumbar region with neurogenic claudication (principal); M51.26 Other intervertebral disc displacement, lumbar region; G96.19 Other disorders of meninges, not elsewhere classified; Z98.890 Other specified postprocedural states
CPT/HCPCS: 72148

== ENCOUNTER → 2019-01-29 | Outpatient (CLI) | payer MEDICARE ==
--- NOTE | 2019-01-29 09:15 | CT ---
EXAMINATION TYPE: CT brain wo con DATE OF EXAM: 01/29/2019 COMPARISON: 06/12/2013 HISTORY: Headache CT DLP: [address] of the brain was performed. The ventricles, basal cisterns and sulci overlying the cerebral convexities demonstrate mild enlargem ent. There is no evidence for intracranial hemorrhage or sulcal effacement. There is decreased attenuation about the periventricular white matter and deep white matter of both c erebral hemispheres, compatible with chronic small vessel ischemia. Differential diagnosis does inclu de demyelination. No mass effects are seen.No midline shift. Osseous calvarium is intact. If symptoms persist consider MRI. IMPRESSION: 1. Age related atrophic and chronic small vessel ischemic change without acute intracranial process s een at this time.
== END | disposition home or self-care (01) ==
LOC: RADCTMAIN 08:11
PROVIDERS: ATTEND Family Medicine
DX: G31.1 Senile degeneration of brain, not elsewhere classified (principal)
CPT/HCPCS: 70450

== ENCOUNTER 2019-02-12 16:42 | Observation (INO) | payer MEDICARE ==
[2019-02-12] MEDS ORDERED: SODIUM CHLORIDE 0.9% 1,000 ML IV STA (16:53)
[2019-02-12] MEDS ORDERED: NITROGLYCERIN OINT 1 INCH/GM PACKET TOPICAL STA (17:09)
[2019-02-12] MEDS ORDERED: ASPIRIN 81 MG PO STA (17:09)
[2019-02-12 17:18] LABS: Basophils # (A) 0.1 k/uL (0-0.2); Basophils % (A) 1 %; Eosinophils # (A) 0.4 k/uL (0-0.7); Eosinophils % (A) 4 %; HCT 40.5 % (39.0-53.0); HGB 13.2 gm/dL (13.0-17.5); Lymphocytes # (A) 2.2 k/uL (1.0-4.8); Lymphocytes % (A) 19 %; MCH 28.8 pg (25.0-35.0); MCHC 32.5 g/dL (31.0-37.0); MCV 88.5 fL (80.0-100.0); Mean Platelet Volume 7.7; Monocytes # (A) 1.1 k/uL (0-1.0); Monocytes % (A) 9 %; Neutrophils # (A) 7.7 k/uL (1.3-7.7); Neutrophils % (A) 65 %; Platelet Count 254 k/uL (150-450); RBC 4.58 m/uL (4.30-5.90); RDW 13.1 % (11.5-15.5); WBC 11.8 k/uL (3.8-10.6)
[2019-02-12 17:29] LABS: INR 0.9 (<1.2); Partial Thromboplastin Time 25.8 sec (22.0-30.0); Prothrombin Time 9.9 sec (9.0-12.0)
[2019-02-12 17:31] LABS: Albumin 4.6 g/dL (3.5-5.0); Calcium 9.6 mg/dL (8.4-10.2); Magnesium 1.7 mg/dL (1.6-2.3); Potassium 4.7 mmol/L (3.5-5.1); Total Bilirubin 0.6 mg/dL (0.2-1.3); Total Protein 7.6 g/dL (6.3-8.2)
--- NOTE | 2019-02-12 17:37 | ED ---
General Adult HPI - General Chief complaint: Chest Pain Stated complaint: CHEST PAIN Time Seen by Provider: 02/12/19 16:53 Source: patient, RN notes reviewed, old records reviewed Mode of arrival: ambulatory Limitations: no limitations - History of Present Illness Initial comments: This is a 73-year-old male who presents emergency Department complaining of chest pain. Patient states been intermittent over the last 2 days per patient states radiates to the left arm and left side of his neck. Patient states he's been mildly short of breath with it as well. Patient states it lasts for hours when it comes on. Patient states currently he is still there. Patient states that heaviness with occasional sharpness to it. Patient denies any fever chills or cough per patient denies any abdominal pain patient denies nausea vomiting diarrhea. Patient denies headache patient denies lightheadedness or dizziness. Patient denies any swelling to the legs or calf tenderness. - Related Data Home Medications Medication Instructions Recorded Confirmed Quinapril HCl 40 mg PO DAILY 01/17/14 02/12/19 glipiZIDE [Glucotrol] 20 mg PO BID 01/17/14 02/12/19 amLODIPine BESYLATE [Norvasc] 10 mg PO DAILY 04/19/14 02/12/19 Atorvastatin [Lipitor] 40 mg PO DAILY 08/08/14 02/12/19 Pregabalin [Lyrica] 150 mg PO BID 06/21/16 02/12/19 Omeprazole 20 mg PO DAILY 08/28/17 02/12/19 HYDROcodone/APAP 7.5-325MG [[place] 1 tab PO QID PRN 10/16/17 02/12/19 7.5-325] Nitroglycerin Sl Tabs [Nitrostat] 0.4 mg SUBLINGUAL Q5M PRN 03/02/18 02/12/19 Aspirin EC [Ecotrin Low Dose] 81 mg PO DAILY 02/12/19 02/12/19 Cholecalciferol [Vitamin D3 (25 5,000 unit PO DAILY 02/12/19 02/12/19 Mcg = 1000 Iu)] Cyanocobalamin (Vitamin B-12) 1,000 mcg PO AC-BRKFST 02/12/19 02/12/19 [Vitamin B-12] Docusate [Colace] 100 - 200 mg PO DAILY PRN 02/12/19 02/12/19 Polyethylene Glycol 3350 [Miralax] 17 gm PO DAILY PRN 02/12/19 02/12/19 Previous Rx's Medication Instructions Recorded metFORMIN HCL 1,000 mg PO BID #0 10/18/17 Allergies Allergy/AdvReac Type Severity Reaction Status Date / Time No Known Allergies Allergy Verified 02/12/19 20:44 Review of Systems ROS Statement: Those systems with pertinent positive or pertinent negative responses have been documented in the HPI. ROS Other: All systems not noted in ROS Statement are negative. Past Medical History Past Medical History: Asthma, Coronary Artery Disease (CAD), Chest Pain / Angina , Diabetes Mellitus, GERD/Reflux, Hearing Disorder / Deafness, Hyperlipidemia, Hypertension Additional Past Medical History / Comment(s): Admitted to [facility] on 06/07/18 with acute exacerbation asthma, hypokalemia, dehydration. Hx chronic back pain, chronic pain syndrome, constipation, NIDDM type II, neuropathy bilateral feet, [place]/uses hearing aids bilaterally. History of Any Multi-Drug Resistant Organisms: None Reported Past Surgical History: Back Surgery, Heart Catheterization With Stent, Orthopedic Surgery Additional Past Surgical History / Comment(s): Cervical fusion, back lami/injections, carpal tunnel surgery, colonoscopy/benign polypectomy. Past Anesthesia/Blood Transfusion Reactions: No Reported Reaction Date of Last Stent Placement:: 2012 Past Psychological History: No Psychological Hx Reported Smoking Status: Never smoker Past Alcohol Use History: None Reported Past Drug Use History: None Reported - Past Family History Father Family Medical History: Myocardial Infarction ([place]) Additional Family Medical History / Comment(s): Passed at age 72. Mother Family Medical History: Myocardial Infarction ([place]) Additional Family Medical History / Comment(s): Passed at age 77. Brother(s) Family Medical History: Myocardial Infarction ([place]) Additional Family Medical History / Comment(s): 3 brothers passed from [place] in 50's. General Exam - General Exam Comments Initial Comments: GENERAL: Patient is well-developed and well-nourished. Patient is nontoxic and well- hydrated and is in mild distress. ENT: Neck is soft and supple. No significant lymphadenopathy is noted. Oropharynx is clear. Moist mucous membranes. Neck has full range of motion without eliciting any pain. EYES: The sclera were anicteric and conjunctiva were pink and moist. Extraocular movements were intact and pupils were equal round and reactive to light. Eyelids were unremarkable. PULMONARY: Unlabored respirations. Good breath sounds bilaterally. No audible rales rhonchi or wheezing was noted. CARDIOVASCULAR: There is a regular rate and rhythm without any murmurs gallops or rubs. ABDOMEN: Soft and nontender with normal bowel sounds. SKIN: Skin is clear with no lesions or rashes and otherwise unremarkable. NEUROLOGIC: Patient is alert and oriented x3. Cranial nerves II through XII are grossly intact. Motor and sensory are also intact. Normal speech, volume and content. Symmetrical smile. MUSCULOSKELETAL: Normal extremities with adequate strength and full range of motion. LYMPHATICS: No significant lymphadenopathy is noted PSYCHIATRIC: Normal psychiatric evaluation. Limitations: no limitations Course Vital Signs 02/12/19 02/12/19 16:45 19:36 Temperature 97.9 F 97.9 F Pulse Rate 75 64 Respiratory 16 17 Rate Blood Pressure 135/77 136/74 O2 Sat by Pulse 98 99 Oximetry Medical Decision Making - Medical Decision Making EKG shows normal sinus rhythm at 75 bpm PA interval is 138 QRS is 80 QT interval 380 QTC is 424 per patient's EKG shows no ST segment elevation or depression or T wave abnormalities are noted. Chest x-ray shows no acute abnormality. I spoke with [facility] hospitalist he agreed to admit the patient admitted the patient wrote admitting orders I consult cardiology. I started the patient heparin I continue the heparin on the floor. - Lab Data Result diagrams: 02/12/19 17:01 02/12/19 17:01 Lab Results 02/12/19 02/12/19 02/12/19 Range/Units 17:01 17:01 17:01 WBC 11.8 H (3.8-10.6) k/uL RBC 4.58 (4.30-5.90) m/uL Hgb 13.2 (13.0-17.5) gm/dL Hct 40.5 (39.0-53.0) % MCV 88.5 (80.0-100.0) fL MCH 28.8 (25.0-35.0) pg MCHC 32.5 (31.0-37.0) g/dL RDW 13.1 (11.5-15.5) % Plt Count 254 (150-450) k/uL Neutrophils % 65 % Lymphocytes % 19 % Monocytes % 9 % Eosinophils % 4 % Basophils % 1 % Neutrophils # 7.7 (1.3-7.7) k/uL Lymphocytes # 2.2 (1.0-4.8) k/uL Monocytes # 1.1 H (0-1.0) k/uL Eosinophils # 0.4 (0-0.7) k/uL Basophils # 0.1 (0-0.2) k/uL PT (9.0-12.0) sec INR (<1.2) APTT (22.0-30.0) sec Sodium 137 (137-145) mmol/L Potassium 4.7 (3.5-5.1) mmol/L Chloride 99 (98-107) mmol/L Carbon Dioxide 24 (22-30) mmol/L Anion Gap 14 mmol/L BUN 24 H (9-20) mg/dL Creatinine 1.11 (0.66-1.25) mg/dL Est GFR (CKD-EPI)AfAm 75 (>60 ml/min/1.73 sqM) Est GFR (CKD-EPI)NonAf 65 (>60 ml/min/1.73 sqM) Glucose 259 H (74-99) mg/dL Calcium 9.6 (8.4-10.2) mg/dL Magnesium 1.7 (1.6-2.3) mg/dL Total Bilirubin 0.6 (0.2-1.3) mg/dL AST 16 L (17-59) U/L ALT 22 (4-49) U/L Alkaline Phosphatase 91 (38-126) U/L Creatine Kinase 58 (55-170) U/L Troponin I (0.000-0.034) ng/mL NT-Pro-B Natriuret Pep 192 pg/mL Total Protein 7.6 (6.3-8.2) g/dL Albumin 4.6 (3.5-5.0) g/dL Lipase 69 (23-300) U/L 02/12/19 02/12/19 Range/Units 17:01 17:01 WBC (3.8-10.6) k/uL RBC (4.30-5.90) m/uL Hgb (13.0-17.5) gm/dL Hct (39.0-53.0) % MCV (80.0-100.0) fL MCH (25.0-35.0) pg MCHC (31.0-37.0) g/dL RDW (11.5-15.5) % Plt Count (150-450) k/uL Neutrophils % % Lymphocytes % % Monocytes % % Eosinophils % % Basophils % % Neutrophils # (1.3-7.7) k/uL Lymphocytes # (1.0-4.8) k/uL Monocytes # (0-1.0) k/uL Eosinophils # (0-0.7) k/uL Basophils # (0-0.2) k/uL PT 9.9 (9.0-12.0) sec INR 0.9 (<1.2) APTT 25.8 (22.0-30.0) sec Sodium (137-145) mmol/L Potassium (3.5-5.1) mmol/L Chloride (98-107) mmol/L Carbon Dioxide (22-30) mmol/L Anion Gap mmol/L BUN (9-20) mg/dL Creatinine (0.66-1.25) mg/dL Est GFR (CKD-EPI)AfAm (>60 ml/min/1.73 sqM) Est GFR (CKD-EPI)NonAf (>60 ml/min/1.73 sqM) Glucose (74-99) mg/dL Calcium (8.4-10.2) mg/dL Magnesium (1.6-2.3) mg/dL Total Bilirubin (0.2-1.3) mg/dL AST (17-59) U/L ALT (4-49) U/L Alkaline Phosphatase (38-126) U/L Creatine Kinase (55-170) U/L Troponin I <0.012 (0.000-0.034) ng/mL NT-Pro-B Natriuret Pep pg/mL Total Protein (6.3-8.2) g/dL Albumin (3.5-5.0) g/dL Lipase (23-300) U/L Disposition Clinical Impression: Chest pain Disposition: ADMITTED IP TO THIS HOSP
--- NOTE | 2019-02-12 17:39 | XR ---
EXAMINATION TYPE: XR chest 2V DATE OF EXAM: 02/12/2019 COMPARISON: 06/07/2018 HISTORY: Chest pain TECHNIQUE: 2 views FINDINGS: There is no heart failure nor confluent pneumonic infiltrate. Costophrenic angles are clear . There are chest leads. Bony thorax is intact. IMPRESSION: No active cardiopulmonary disease. There is some clearing of the mild atelectasis left tiana ng compared to old exam.
[2019-02-12] MEDS ORDERED: HEPARIN SODIUM,PORCINE 5,000 UNIT/ML 1 ML VIAL IV ONE (18:00)
[2019-02-12] MEDS ORDERED: HEPARIN SOD,PORK IN 0.45% NACL 25,000 UNIT in 0.45% NACL 1 250ML.BAG IV SCH (18:00)
[2019-02-12] MEDS ORDERED: NITROGLYCERIN SL TABS 0.4 MG TAB SUBLINGUAL PRN (18:00)
[2019-02-12] MEDS: NITROGLYCERIN OINT 1 INCH/GM PACKET TOPICAL SCH ×2 (18:36)
[2019-02-12 21:21] LABS: Glucose,Whole Blood 257 mg/dL (75-99)
[2019-02-12] MEDS ORDERED: HYDROcodone/APAP 7.5-325MG 1 EACH TAB PO PRN (21:30)
[2019-02-12] MEDS: PREGABALIN 75 MG CAP PO SCH (21:50)
[2019-02-12] MEDS: INSULIN ASPART (NovoLOG) 100 UNIT/ML VIAL SQ SCH (21:51)
[2019-02-13] MEDS ORDERED: HEPARIN SODIUM,PORCINE 5,000 UNIT/ML 1 ML VIAL IV PRN (00:57)
[2019-02-13] MEDS: NITROGLYCERIN OINT 1 INCH/GM PACKET TOPICAL SCH ×3 (01:11→11:51)
[2019-02-13 06:43] LABS: Glucose,Whole Blood 197 mg/dL (75-99)
[2019-02-13 07:20] VITALS: RESP 18
[2019-02-13] MEDS ORDERED: INSULIN ASPART (NovoLOG) 100 UNIT/ML VIAL SQ SCH (07:30)
[2019-02-13 07:35] LABS: Cholesterol 152 mg/dL (<200); HDL Cholesterol 54 mg/dL (40-60); LDL Cholesterol,Calculated 66 mg/dL (0-99); Triglycerides 161 mg/dL (<150)
[2019-02-13] MEDS ORDERED: ASPIRIN 325 MG TAB PO SCH (09:00)
[2019-02-13] MEDS: INSULIN ASPART (NovoLOG) 100 UNIT/ML VIAL SQ SCH ×2 (10:32→11:53)
[2019-02-13] MEDS: PREGABALIN 75 MG CAP PO SCH (10:34)
[2019-02-13 11:23] VITALS: BP 155/86; PULSE 78; TEMP 98.1
[2019-02-13 11:37] LABS: Glucose,Whole Blood 285 mg/dL (75-99)
--- NOTE | 2019-02-13 11:44 | P.CRDCN ---
History of Present Illness Consult date: 02/13/19 Chief complaint: Chest pain History of present illness: This is a very pleasant 73-year-old gentleman with known coronary artery disease based on heart catheterization in 2018 showing intermediate disease involving the RCA and LCx was mild disease involving the LAD as well as diabetes, hypertension, and dyslipidemia, was sent to the hospital complaining of chest discomfort. The patient does follow-up with Dr. Aranda on regular basis. As a matter of fact he was seen in the office about a week and half ago. The patient stated that he was playing cards yesterday when he started experiencing discomfort in the mid of the chest, as sharp, without radiation to the arm or neck or shoulders, and without associated symptoms of sweating, shortness of breath, dizziness, or syncope. The symptoms lasted for about 20-25 minutes according to him and it has resolved after that. It was resolved before he presented to the emergency room. The patient continues to be chest pain-free during his hospitalization. The cardiac enzymes were checked and came in to be unremarkable. The EKG showed sinus rhythm without any significant ST or T-wave abnormalities concerning for ischemia. The patient underwent a heart cath in 2018 and that showed only intermediate disease and medical treatment was advised. Past Medical History Past Medical History: Asthma, Coronary Artery Disease (CAD), Chest Pain / Angina, Diabetes Mellitus, GERD/Reflux, Hearing Disorder / Deafness, Hyperlipidemia, Hypertension Additional Past Medical History / Comment(s): Admitted to [facility] on 06/07/18 with acute exacerbation asthma, hypokalemia, dehydration. Hx chronic back pain, chronic pain syndrome, constipation, NIDDM type II, neuropathy bilateral feet, [place]/uses hearing aids bilaterally. History of Any Multi-Drug Resistant Organisms: None Reported Past Surgical History: Back Surgery, Heart Catheterization With Stent, Orthopedic Surgery Additional Past Surgical History / Comment(s): Cervical fusion, back lami/injections, carpal tunnel surgery, colonoscopy/benign polypectomy. Past Anesthesia/Blood Transfusion Reactions: No Reported Reaction Date of Last Stent Placement:: 2012 Past Psychological History: No Psychological Hx Reported Additional Psychological History / Comment(s): Pt resides with his spouse. He uses a walker to ambulate on occasion. Normally, he drives. Smoking Status: Never smoker Past Alcohol Use History: None Reported Past Drug Use History: None Reported - Past Family History Father Family Medical History: Myocardial Infarction ([place]) Additional Family Medical History / Comment(s): Passed at age 72. Mother Family Medical History: Myocardial Infarction ([place]) Additional Family Medical History / Comment(s): Passed at age 77. Brother(s) Family Medical History: Myocardial Infarction ([place]) Additional Family Medical History / Comment(s): 3 brothers passed from [place] in 50's. Medications and Allergies Home Medications Medication Instructions Recorded Confirmed Type Quinapril HCl 40 mg PO DAILY 01/17/14 02/12/19 History glipiZIDE [Glucotrol] 20 mg PO BID 01/17/14 02/12/19 History amLODIPine BESYLATE [Norvasc] 10 mg PO DAILY 04/19/14 02/12/19 History Atorvastatin [Lipitor] 40 mg PO DAILY 08/08/14 02/12/19 History Pregabalin [Lyrica] 150 mg PO BID 06/21/16 02/12/19 History Omeprazole 20 mg PO DAILY 08/28/17 02/12/19 History HYDROcodone/APAP 7.5-325MG [[place] 1 tab PO QID PRN 10/16/17 02/12/19 History 7.5-325] metFORMIN HCL 1,000 mg PO BID #0 10/18/17 02/12/19 Rx Nitroglycerin Sl Tabs [Nitrostat] 0.4 mg SUBLINGUAL Q5M PRN 03/02/18 02/12/19 History Aspirin EC [Ecotrin Low Dose] 81 mg PO DAILY 02/12/19 02/12/19 History Cholecalciferol [Vitamin D3 (25 5,000 unit PO DAILY 02/12/19 02/12/19 History Mcg = 1000 Iu)] Cyanocobalamin (Vitamin B-12) 1,000 mcg PO AC-BRKFST 02/12/19 02/12/19 History [Vitamin B-12] Docusate [Colace] 100 - 200 mg PO DAILY PRN 02/12/19 02/12/19 History Polyethylene Glycol 3350 [Miralax] 17 gm PO DAILY PRN 02/12/19 02/12/19 History Allergies Allergy/AdvReac Type Severity Reaction Status Date / Time No Known Allergies Allergy Verified 02/12/19 20:44 Physical Exam Vitals: Vital Signs Temp Pulse Pulse Resp BP BP Pulse Ox 02/13/19 11:22 98.1 F 78 18 155/86 97 02/13/19 07:00 97.8 F 68 18 147/76 96 02/13/19 04:00 97.9 F 66 16 159/77 97 02/12/19 23:41 97.9 F 65 16 117/62 97 02/12/19 19:54 98.3 F 78 17 150/74 98 02/12/19 19:36 97.9 F 64 17 136/74 99 02/12/19 16:45 97.9 F 75 16 135/77 98 Intake and Output 02/12/19 02/13/19 02/13/19 22:59 06:59 14:59 Intake Total 289.157 Output Total 0 Balance 0 289.157 Intake: Intake, IV Titration 65.157 Amount Heparin Sod,Pork in 0.45% 65.157 NaCl 25,000 unit In 0.45 % NaCl 1 250ml.bag @ 12 UNITS/KG/HR 9.798 mls/hr IV .Q24H [facility] Rx#: [id number] Oral 224 Output: Urine 0 Other: Voiding Method Toilet # Voids 2 Weight 81.647 kg - Constitutional General appearance: no acute distress - Respiratory Respiratory: bilateral: CTA - Cardiovascular Rhythm: regular Heart sounds: normal: S1, S2 Results 02/12/19 17:01 02/12/19 17:01 Cardiac Enzymes 02/12/19 02/12/19 02/13/19 Range/Units 17: 17:01 00:00 AST 16 L (17-59) U/L Troponin I <0.012 <0.012 (0.000-0.034) ng/mL 02/13/19 Range/Units 06:27 AST (17-59) U/L Troponin I <0.012 (0.000-0.034) ng/mL Coagulation 02/12/19 02/13/19 02/13/19 Range/Units 17:01 00:00 06:27 PT 9.9 (9.0-12.0) sec APTT 25.8 42.9 H 63.0 H (22.0-30.0) sec Lipids 02/13/19 Range/Units 06:27 Triglycerides 161 H (<150) mg/dL Cholesterol 152 (<200) mg/dL HDL Cholesterol 54 (40-60) mg/dL CBC 02/12/19 Range/Units 17:01 WBC 11.8 H (3.8-10.6) k/uL RBC 4.58 (4.30-5.90) m/uL Hgb 13.2 (13.0-17.5) gm/dL Hct 40.5 (39.0-53.0) % Plt Count 254 (150-450) k/uL Comprehensive Metabolic Panel 02/12/19 Range/Units 17:01 Sodium 137 (137-145) mmol/L Potassium 4.7 (3.5-5.1) mmol/L Chloride 99 (98-107) mmol/L Carbon Dioxide 24 (22-30) mmol/L BUN 24 H (9-20) mg/dL Creatinine 1.11 (0.66-1.25) mg/dL Glucose 259 H (74-99) mg/dL Calcium 9.6 (8.4-10.2) mg/dL AST 16 L (17-59) U/L ALT 22 (4-49) U/L Alkaline Phosphatase 91 (38-126) U/L Total Protein 7.6 (6.3-8.2) g/dL Albumin 4.6 (3.5-5.0) g/dL Current Medications Generic Name Dose Route Start Last Admin Trade Name Freq PRN Reason Stop Dose Admin Hydrocodone Bitart/Acetaminophen 1 each 02/12/19 21:30 [place] 7.5-325 PO Q8H PRN Pain Aspirin 325 mg 02/13/19 09:00 02/13/19 10:34 Aspirin PO 325 mg DAILY [place] Administration Heparin Sodium (Porcine) 0 unit 02/13/19 00:57 02/13/19 01:11 Heparin IV 2,025 unit PER PROTOCOL PRN Administration Low PTT Protocol Heparin Sodium/Sodium Chloride 250 mls @ 9.798 mls/hr 02/12/19 18:00 02/13/19 01:12 25,000 unit/ Sodium Chloride IV 14 units/kg/hr .Q24H [place] 11.431 mls/hr Titration Protocol 12 UNITS/KG/HR Insulin Aspart 0 unit 02/12/19 21:33 02/13/19 10:32 Novolog SQ Not Given ACHS [facility] Protocol Nitroglycerin 0.4 mg 02/12/19 18:00 Nitrostat SUBLINGUAL Q5M PRN Chest Pain Nitroglycerin 1 inch 02/13/19 00:00 02/13/19 06:20 Nitro-Bid Oint TOPICAL 1 inch Q6HR [place] Administration Pregabalin 150 mg 02/12/19 21:30 02/13/19 10:34 Lyrica PO 150 mg BID [place] Administration Intake and Output 02/12/19 02/13/19 02/13/19 22:59 06:59 14:59 Intake Total 289.157 Output Total 0 Balance 0 289.157 Intake: Intake, IV Titration 65.157 Amount Heparin Sod,Pork in 0.45% 65.157 NaCl 25,000 unit In 0.45 % NaCl 1 250ml.bag @ 12 UNITS/KG/HR 9.798 mls/hr IV .Q24H [facility] Rx#: [id number] Oral 224 Output: Urine 0 Other: Voiding Method Toilet # Voids 2 Weight 81.647 kg 02/12/19 17:01 02/12/19 17:01 Assessment and Plan Assessment: Assessment #1 one episode of atypical chest pain #2 known coronary artery disease #3 multiple risk factors including diabetes, hypertension, dyslipidemia Plan #1 acute coronary event was ruled out #2 I am going to get the patient up and around, if he is asymptomatic he possibly can be discharged home and follow-up with Dr. Aranda as an outpatient Thank you for allowing us participate in his care
[2019-02-13 14:17] LABS: Hemoglobin A1C 8.4 % (4.0-6.0)
--- NOTE | 2019-02-13 14:26 | P.HPIM ---
History of Present Illness H&P Date: 02/13/19 Chief Complaint: chest pain 73-year-old male who presents emergency Department complaining of chest pain. Patient states been intermittent over the last 2 days per patient states radiates to the left arm and left side of his neck. Patient states he's been mildly short of breath with it as well. Patient states it lasts for hours when it comes on. Patient states currently he is still there. Patient states that heaviness with occasional sharpness to it. Patient denies any fever chills or cough per patient denies any abdominal pain patient denies nausea vomiting diar jamal. Patient denies headache patient denies lightheadedness or dizziness. Patient denies any swelling to the legs or calf tenderness. The cardiac enzymes were checked and came in to be unremarkable. The EKG showed sinus rhythm without any significant ST or T-wave abnormalities concerning for ischemia. The patient underwent a heart cath in 2018 and that showed only intermediate disease and medical treatment was advised. Review of Systems REVIEW OF SYSTEMS: CONSTITUTIONAL: No fever, no malaise, no fatigue. HEENT: No recent visual problems or hearing problems. Denied any sore throat. CARDIOVASCULAR: No chest pain, orthopnea, PND, no palpitations, no syncope. PULMONARY: No shortness of breath, no cough, no hemoptysis. GASTROINTESTINAL: No diarrhea, no nausea, no vomiting, no abdominal pain. NEUROLOGICAL: No headaches, no weakness, no numbness. HEMATOLOGICAL: Denies any bleeding or petechiae. GENITOURINARY: Denies any burning micturition, frequency, or urgency. MUSCULOSKELETAL/RHEUMATOLOGICAL: Denies any joint pain, swelling, or any muscle pain. ENDOCRINE: Denies any polyuria or polydipsia. The rest of the 14-point review of systems is negative. Past Medical History Past Medical History: Asthma, Coronary Artery Disease (CAD), Chest Pain / Angina, Diabetes Mellitus, GERD/Reflux, Hearing Disorder / Deafness, Hyperlipidemia, Hypertension Additional Past Medical History / Comment(s): Admitted to [facility] on 06/07/18 with acute exacerbation asthma, hypokalemia, dehydration. Hx chronic back pain, chronic pain syndrome, constipation, NIDDM type II, neuropathy bilateral feet, [place]/uses hearing aids bilaterally. History of Any Multi-Drug Resistant Organisms: None Reported Past Surgical History: Back Surgery, Heart Catheterization With Stent, Orthopedic Surgery Additional Past Surgical History / Comment(s): Cervical fusion, back lami/injections, carpal tunnel surgery, colonoscopy/benign polypectomy. Past Anesthesia/Blood Transfusion Reactions: No Reported Reaction Date of Last Stent Placement:: 2012 Past Psychological History: No Psychological Hx Reported Additional Psychological History / Comment(s): Pt resides with his spouse. He uses a walker to ambulate on occasion. Normally, he drives. Smoking Status: Never smoker Past Alcohol Use History: None Reported Past Drug Use History: None Reported - Past Family History Father Family Medical History: Myocardial Infarction ([place]) Additional Family Medical History / Comment(s): Passed at age 72. Mother Family Medical History: Myocardial Infarction ([place]) Additional Family Medical History / Comment(s): Passed at age 77. Brother(s) Family Medical History: Myocardial Infarction ([place]) Additional Family Medical History / Comment(s): 3 brothers passed from [place] in 50's. Medications and Allergies Home Medications Medication Instructions Recorded Confirmed Type Quinapril HCl 40 mg PO DAILY 01/17/14 02/12/19 History glipiZIDE [Glucotrol] 20 mg PO BID 01/17/14 02/12/19 History amLODIPine BESYLATE [Norvasc] 10 mg PO DAILY 04/19/14 02/12/19 History Atorvastatin [Lipitor] 40 mg PO DAILY 08/08/14 02/12/19 History Pregabalin [Lyrica] 150 mg PO BID 06/21/16 02/12/19 History Omeprazole 20 mg PO DAILY 08/28/17 02/12/19 History HYDROcodone/APAP 7.5-325MG [[place] 1 tab PO QID PRN 10/16/17 02/12/19 History 7.5-325] metFORMIN HCL 1,000 mg PO BID #0 10/18/17 02/12/19 Rx Nitroglycerin Sl Tabs [Nitrostat] 0.4 mg SUBLINGUAL Q5M PRN 03/02/18 02/12/19 History Aspirin EC [Ecotrin Low Dose] 81 mg PO DAILY 02/12/19 02/12/19 History Cholecalciferol [Vitamin D3 (25 5,000 unit PO DAILY 02/12/19 02/12/19 History Mcg = 1000 Iu)] Cyanocobalamin (Vitamin B-12) 1,000 mcg PO AC-BRKFST 02/12/19 02/12/19 History [Vitamin B-12] Docusate [Colace] 100 - 200 mg PO DAILY PRN 02/12/19 02/12/19 History Polyethylene Glycol 3350 [Miralax] 17 gm PO DAILY PRN 02/12/19 02/12/19 History Allergies Allergy/AdvReac Type Severity Reaction Status Date / Time No Known Allergies Allergy Verified 02/12/19 20:44 Physical Exam Vitals: Vital Signs Temp Pulse Pulse Resp BP BP Pulse Ox 02/13/19 11:22 98.1 F 78 18 155/86 97 02/13/19 07:00 97.8 F 68 18 147/76 96 02/13/19 04:00 97.9 F 66 16 159/77 97 02/12/19 23:41 97.9 F 65 16 117/62 97 02/12/19 19:54 98.3 F 78 17 150/74 98 02/12/19 19:36 97.9 F 64 17 136/74 99 02/12/19 16:45 97.9 F 75 16 135/77 98 Intake and Output 02/12/19 02/13/19 02/13/19 22:59 06:59 14:59 Intake Total 289.157 240 Output Total 0 Balance 0 289.157 240 Intake: Intake, IV Titration 65.157 Amount Heparin Sod,Pork in 0.45% 65.157 NaCl 25,000 unit In 0.45 % NaCl 1 250ml.bag @ 12 UNITS/KG/HR 9.798 mls/hr IV .Q24H [facility] Rx#: [id number] Oral 224 240 Output: Urine 0 Other: Voiding Method Toilet # Voids 2 Weight 81.647 kg - Constitutional General appearance: Present: average body habitus, cooperative, no acute distress - EENT Eyes: Present: anicteric sclerae, EOMI, PERRLA, normal appearance ENT: Present: hearing grossly normal, normal oropharynx Ears: bilateral: normal - Neck Neck: Present: normal ROM. Absent: lymphadenopathy, rigidity, thyromegaly Carotids: negative: bruit present Thyroid: bilateral: normal size, negative: enlarged, nodule - Respiratory Respiratory: bilateral: CTA, negative: rales, rhonchi, wheezing - Cardiovascular Rhythm: regular Heart sounds: normal: S1, S2 Abnormal Heart Sounds: Absent: systolic murmur, diastolic murmur - Gastrointestinal General gastrointestinal: Present: normal bowel sounds, soft. Absent: distended, organomegaly, tenderness - Genitourinary Genitourinary Comment(s): deferred - Integumentary Integumentary: Present: normal turgor. Absent: jaundiced, rash, ulcer - Neurologic Neurologic: Present: CNII-XII intact. Absent: focal deficits - Musculoskeletal Musculoskeletal: Present: gait normal, strength equal bilaterally - Psychiatric Psychiatric: Present: A&O x's 3, appropriate affect, intact judgment & insight Results CBC & Chem 7: 02/12/19 17:01 02/12/19 17:01 Labs: Abnormal Lab Results - Last 24 Hours (Table) 02/12/19 02/12/19 02/12/19 Range/Units 17:01 17:01 21:19 WBC 11.8 H (3.8-10.6) k/uL Monocytes # 1.1 H (0-1.0) k/uL APTT (22.0-30.0) sec BUN 24 H (9-20) mg/dL Glucose 259 H (74-99) mg/dL POC Glucose (mg/dL) 257 H (75-99) mg/dL AST 16 L (17-59) U/L Triglycerides (<150) mg/dL 02/13/19 02/13/19 02/13/19 Range/Units 00:00 06:27 06:27 WBC (3.8-10.6) k/uL Monocytes # (0-1.0) k/uL APTT 42.9 H 63.0 H (22.0-30.0) sec BUN (9-20) mg/dL Glucose (74-99) mg/dL POC Glucose (mg/dL) (75-99) mg/dL AST (17-59) U/L Triglycerides 161 H (<150) mg/dL 02/13/19 02/13/19 Range/Units 06:38 11:35 WBC (3.8-10.6) k/uL Monocytes # (0-1.0) k/uL APTT (22.0-30.0) sec BUN (9-20) mg/dL Glucose (74-99) mg/dL POC Glucose (mg/dL) 197 H 285 H (75-99) mg/dL AST (17-59) U/L Triglycerides (<150) mg/dL Thrombosis Risk Factor Assmnt - Choose All That Apply Any of the Below Risk Factors Present?: Yes Each Factor Represents 1 point: Obesity (BMI >25) Each Risk Factor Represents 2 Points: Age 61-74 years Thrombosis Risk Factor Assessment Total Risk Factor Score: 3 Thrombosis Risk Factor Assessment Level: Moderate Risk Assessment and Plan Assessment: chest pain rule out acute coronary syndrome; monitor cardiac enzymes every 43; monitor EKG; consult cardiology; patient started on IV heparin per protocol from ED; we will continue to further recommendations from cardiology Mild acute renal injury; Slow IV fluid hydration; monitor renal function and electrolytes Hyperglycemia without acidosis; Accu-Cheks every before meals and at bedtime with insulin sliding scale Hypertension; stable Hyperlipidemia; Lipitor 40 mg by mouth daily at bedtime DVT prophylaxis; systemic anticoagulation with heparin CODE STATUS; full code Time with Patient: Greater than 30
--- NOTE | 2019-02-13 14:27 | P.DS ---
Providers Date of admission: 02/12/19 18:00 Expected date of discharge: 02/13/19 Attending physician: Suad Leon Consults: 02/12/19 18:00 Consult Physician Urgent Consulting Provider: [facility] Consult Reason/Comments: Unstable angina Do you want consulting provider notified?: Yes Primary care physician: Physician Nonstaff Hospital Course: 73-year-old gentleman with known coronary artery disease based on heart catheterization in 2018 showing intermediate disease involving the RCA and LCx was mild disease involving the LAD as well as diabetes, hypertension, and dyslipidemia, was sent to the hospital complaining of chest discomfort. The patient does follow-up with Dr. Aranda on regular basis. As a matter of fact he was seen in the office about a week and half ago. The patient stated that he was playing cards yesterday when he started experiencing discomfort in the mid of the chest, as sharp, without radiation to the arm or neck or shoulders, and without associated symptoms of sweating, shortness of breath, dizziness, or syncope. The symptoms lasted for about 20-25 minutes according to him and it has resolved after that. It was resolved before he presented to the emergency room. The patient continues to be chest pain-free during his hospitalization. The cardiac enzymes were checked and came in to be unremarkable. The EKG showed sinus rhythm without any significant ST or T-wave abnormalities concerning for ischemia. The patient underwent a heart cath in 2018 and that showed only intermediate disease and medical treatment was advised. cardiology evaluated patient and was diagnosed as atypical chest pain; patient was recommended to increase activity and remained asymptomatic to be discharged home and follow-up with Dr. Aranda has had outpatient Plan - Discharge Summary Discharge Rx Participant: No New Discharge Prescriptions: Continue glipiZIDE [Glucotrol] 20 mg PO BID Quinapril HCl 40 mg PO DAILY amLODIPine BESYLATE [Norvasc] 10 mg PO DAILY Atorvastatin [Lipitor] 40 mg PO DAILY Pregabalin [Lyrica] 150 mg PO BID Omeprazole 20 mg PO DAILY HYDROcodone/APAP 7.5-325MG [[place] 7.5-325] 1 tab PO QID PRN PRN Reason: Pain metFORMIN HCL 1,000 mg PO BID #0 Nitroglycerin Sl Tabs [Nitrostat] 0.4 mg SUBLINGUAL Q5M PRN PRN Reason: Chest Pain Polyethylene Glycol 3350 [Miralax] 17 gm PO DAILY PRN PRN Reason: Constipation Docusate [Colace] 100 - 200 mg PO DAILY PRN PRN Reason: Constipation Cholecalciferol [Vitamin D3 (25 Mcg = 1000 Iu)] 5,000 unit PO DAILY Aspirin EC [Ecotrin Low Dose] 81 mg PO DAILY Cyanocobalamin (Vitamin B-12) [Vitamin B-12] 1,000 mcg PO AC-BRKFST Discharge Medication List Quinapril HCl 40 mg PO DAILY 01/17/14 [History] glipiZIDE [Glucotrol] 20 mg PO BID 01/17/14 [History] amLODIPine BESYLATE [Norvasc] 10 mg PO DAILY 04/19/14 [History] Atorvastatin [Lipitor] 40 mg PO DAILY 08/08/14 [History] Pregabalin [Lyrica] 150 mg PO BID 06/21/16 [History] Omeprazole 20 mg PO DAILY 08/28/17 [History] HYDROcodone/APAP 7.5-325MG [[place] 7.5-325] 1 tab PO QID PRN 10/16/17 [History] metFORMIN HCL 1,000 mg PO BID #0 10/18/17 [Rx] Nitroglycerin Sl Tabs [Nitrostat] 0.4 mg SUBLINGUAL Q5M PRN 03/02/18 [History] Aspirin EC [Ecotrin Low Dose] 81 mg PO DAILY 02/12/19 [History] Cholecalciferol [Vitamin D3 (25 Mcg = 1000 Iu)] 5,000 unit PO DAILY 02/12/19 [History] Cyanocobalamin (Vitamin B-12) [Vitamin B-12] 1,000 mcg PO AC-BRKFST 02/12/19 [History] Docusate [Colace] 100 - 200 mg PO DAILY PRN 02/12/19 [History] Polyethylene Glycol 3350 [Miralax] 17 gm PO DAILY PRN 02/12/19 [History] Follow up Appointment(s)/Referral(s): Ree Aranda MD [STAFF PHYSICIAN] - 02/16/19 10:15 am Wilmer,Physician [Primary Care Provider] - 1-2 days Patient Instructions/Handouts: Chest Pain (DC) Discharge Disposition: HOME SELF-CARE
== END 2019-02-13 15:13 | disposition home or self-care (01) ==
LOC: EC 16:42 → 1SOBS 18:00
PROVIDERS: ADMIT Hospitalist; ATTEND Hospitalist
DX: R07.89 Other chest pain (principal); N17.9 Acute kidney failure, unspecified; E11.65 Type 2 diabetes mellitus with hyperglycemia; I10 Essential (primary) hypertension; E78.5 Hyperlipidemia, unspecified; I25.10 Atherosclerotic heart disease of native coronary artery without angina pectoris; J45.909 Unspecified asthma, uncomplicated; E11.42 Type 2 diabetes mellitus with diabetic polyneuropathy; K21.9 Gastro-esophageal reflux disease without esophagitis; H91.90 Unspecified hearing loss, unspecified ear; G89.4 Chronic pain syndrome; M54.9 Dorsalgia, unspecified; E66.9 Obesity, unspecified; Z68.26 Body mass index [BMI] 26.0-26.9, adult; Z79.899 Other long term (current) drug therapy; Z79.84 Long term (current) use of oral hypoglycemic drugs; Z79.82 Long term (current) use of aspirin; Z79.891 Long term (current) use of opiate analgesic; Z86.39 Personal history of other endocrine, nutritional and metabolic disease; Z87.19 Personal history of other diseases of the digestive system; Z97.4 Presence of external hearing-aid; Z98.890 Other specified postprocedural states; Z95.5 Presence of coronary angioplasty implant and graft; Z98.1 Arthrodesis status; Z86.69 Personal history of other diseases of the nervous system and sense organs; Z86.010 Personal history of colon polyps; Z82.49 Family history of ischemic heart disease and other diseases of the circulatory system
CPT/HCPCS: 93005 ×2; 96366 ×3; 96376 ×2; 96361; 96365; 99285; 36415; 83880; 80061; 80053; 82550; 83690; 83735; 84484 ×2; 85025; 85610; 85730 ×2; 83036; 71046; G0378 ×2; J1644 ×3

== ENCOUNTER → 2019-02-26 | Outpatient (CLI) | payer MEDICARE ==
[2019-02-26 07:28] LABS: INR 0.9 (<1.2); Partial Thromboplastin Time 24.7 sec (22.0-30.0); Prothrombin Time 10.2 sec (9.0-12.0)
[2019-02-26 07:30] LABS: Basophils # (A) 0.1 k/uL (0-0.2); Basophils % (A) 1 %; Eosinophils # (A) 0.7 k/uL (0-0.7); Eosinophils % (A) 9 %; HCT 38.8 % (39.0-53.0); HGB 12.9 gm/dL (13.0-17.5); Lymphocytes # (A) 2.6 k/uL (1.0-4.8); Lymphocytes % (A) 34 %; MCH 29.5 pg (25.0-35.0); MCHC 33.3 g/dL (31.0-37.0); MCV 88.6 fL (80.0-100.0); Mean Platelet Volume 7.3; Monocytes # (A) 0.4 k/uL (0-1.0); Monocytes % (A) 6 %; Neutrophils # (A) 3.7 k/uL (1.3-7.7); Neutrophils % (A) 48 %; Platelet Count 304 k/uL (150-450); RBC 4.38 m/uL (4.30-5.90); WBC 7.7 k/uL (3.8-10.6)
[2019-02-26 07:40] LABS: Appearance,Urine Clear (Clear); Bilirubin,Urine Negative (Negative); Blood,Urine Negative (Negative); Color,Urine Yellow; Glucose,Urine (UA) Trace (Negative); Ketones,Urine Negative (Negative); Leukocyte Esterase,Urine Negative (Negative); Nitrite,Urine Negative (Negative); PH, Urine 5.5 (5.0-8.0); Protein,Urine Negative (Negative); Specific Gravity,Urine 1.023 (1.001-1.035); Urobilinogen,Urine <2.0 mg/dL (<2.0)
[2019-02-26 11:32] LABS: African American GFR (CKD) 85.6 (60.0-200.0); Albumin 4.5 g/dL (3.80-4.90); Albumin/Globulin Ratio 2.05 (1.60-3.17); Anion Gap 8.4 mmol/L (4.00-12.00); Calcium 9.3 mg/dL (8.7-10.3); Carbon Dioxide 24.6 mmol/L (21.6-31.8); Globulin 2.2 g/dL (1.6-3.3); Non-African American GFR(CKD) 73.8 (60.0-200.0); Potassium 4.8 mmol/L (3.5-5.5); Total Bilirubin 0.3 mg/dL (0.2-1.2); Total Protein 6.7 g/dL (6.2-8.2)
== END | disposition home or self-care (01) ==
LOC: LABWHC1 06:51
DX: M47.816 Spondylosis without myelopathy or radiculopathy, lumbar region (principal)
CPT/HCPCS: 36415; 80053; 81003; 85025; 85610; 85730

== ENCOUNTER → 2019-03-29 | Outpatient (CLI) | payer MEDICARE ==
--- NOTE | 2019-03-29 11:05 | XR ---
EXAMINATION TYPE: XR lumbar spine 2 or 3V DATE OF EXAM: 03/29/2019 CLINICAL HISTORY: Postop evaluation of lumbar fusion TECHNIQUE: Frontal and lateral images of the lumbar spine are obtained. COMPARISON: 07/02/2018 FINDINGS: There has been revision of the previous lumbar fusion. There is no surgical fixation of L2- S1 with intervertebral disc cages at L2-L3 and L5-S1. Surgical resection of posterior elements throug hout the lower lumbar spine. There is a very mild levoscoliosis. No hardware fracture is seen. Alignm ent is grossly maintained of the lumbar spine although partially obscured by surgical hardware on the lateral view. Advanced atherosclerosis of the abdominal aorta. IMPRESSION: 1. Interval surgical revision with intact hardware noted from L2 through S1. 2. Postsurgical alignment appears maintained. 3. Very mild levoscoliosis of the lumbar spine.
== END | disposition home or self-care (01) ==
LOC: RADXRMAIN 09:42
DX: Z47.89 Encounter for other orthopedic aftercare (principal); M41.86 Other forms of scoliosis, lumbar region
CPT/HCPCS: 72100

== ENCOUNTER 2019-07-20 05:47 | Observation (INO) | payer MEDICARE ==
[2019-07-20] MEDS ORDERED: NITROGLYCERIN OINT 1 INCH/GM PACKET TOPICAL STA (06:17)
[2019-07-20] MEDS ORDERED: ASPIRIN 81 MG PO STA (06:17)
[2019-07-20] MEDS ORDERED: NITROGLYCERIN SL TABS 0.4 MG TAB SUBLINGUAL STA (06:17)
[2019-07-20] MEDS ORDERED: SODIUM CHLORIDE 0.9% 1,000 ML IV STA (06:17)
[2019-07-20] MEDS ORDERED: MORPHINE SULFATE 4 MG/ML SYRINGE IVP STA (06:19)
--- NOTE | 2019-07-20 06:24 | ED ---
Chest Pain HPI - General Chief Complaint: Chest Pain Stated Complaint: chest pain Time Seen by Provider: 07/20/19 06:09 Source: patient, RN notes reviewed, old records reviewed Mode of arrival: ambulatory Limitations: no limitations - History of Present Illness Initial Comments: This Patient is a pleasant 74-year-old male who presents the emergency depa rtment today with chief complaint of substernal left-sided chest pain with three-day fried on the left arm starting about midnight last night. He reports that he's been having intermittent chest pains for the past 2 weeks. He denies any cough. Reports some mild shortness of breath with this as well. He complains of nausea. He does have a previous cardiac history and has had stents placed and the LAD in 2018. This was done by his tablet technician Dr. Aranda. Patient reports that he took 3 nitro prior to arrival at 3:00 this morning and did report some relief of his pain and symptoms. Patient states that he has had no recent fevers or chills, denies cough. - Related Data Home Medications Medication Instructions Recorded Confirmed Quinapril HCl 40 mg PO DAILY 01/17/14 02/12/19 glipiZIDE [Glucotrol] 20 mg PO BID 01/17/14 02/12/19 amLODIPine BESYLATE [Norvasc] 10 mg PO DAILY 04/19/14 02/12/19 Atorvastatin [Lipitor] 40 mg PO DAILY 08/08/14 02/12/19 Pregabalin [Lyrica] 150 mg PO BID 06/21/16 02/12/19 Omeprazole 20 mg PO DAILY 08/28/17 02/12/19 HYDROcodone/APAP 7.5-325MG [[place] 1 tab PO QID PRN 10/16/17 02/12/19 7.5-325] Nitroglycerin Sl Tabs [Nitrostat] 0.4 mg SUBLINGUAL Q5M PRN 03/02/18 02/12/19 Aspirin EC [Ecotrin Low Dose] 81 mg PO DAILY 02/12/19 02/12/19 Cholecalciferol [Vitamin D3 (25 5,000 unit PO DAILY 02/12/19 02/12/19 Mcg = 1000 Iu)] Cyanocobalamin (Vitamin B-12) 1,000 mcg PO AC-BRKFST 02/12/19 02/12/19 [Vitamin B-12] Docusate [Colace] 100 - 200 mg PO DAILY PRN 02/12/19 02/12/19 Polyethylene Glycol 3350 [Miralax] 17 gm PO DAILY PRN 02/12/19 02/12/19 Previous Rx's Medication Instructions Recorded metFORMIN HCL 1,000 mg PO BID #0 10/18/17 Allergies Allergy/AdvReac Type Severity Reaction Status Date / Time No Known Allergies Allergy Verified 07/20/19 05:55 Review of Systems ROS Statement: Those systems with pertinent positive or pertinent negative responses have been documented in the HPI. ROS Other: All systems not noted in ROS Statement are negative. EKG Findings - EKG Comments: EKG Findings:: EKG performed at 559 shows normal sinus rhythm, normal EKG. Ventricular rate of 74 beats. Pulse 180 ms. QS ration is 88 ms. QT QTc is 378/419 ms. Past Medical History Past Medical History: Asthma, Coronary Artery Disease (CAD), Chest Pain / An jennifer, Diabetes Mellitus, GERD/Reflux, Hearing Disorder / Deafness, Hyperlipidemia, Hypertension Additional Past Medical History / Comment(s): Admitted to [facility] on 06/07/18 with a cute exacerbation asthma, hypokalemia, dehydration. Hx chronic back pain, chronic pain syndrome, constipation, NIDDM type II, neuropathy bilateral feet, [place]/uses hearing aids bilaterally. History of Any Multi-Drug Resistant Organisms: None Reported Past Surgical History: Back Surgery, Heart Catheterization With Stent, Orthopedic Surgery Additional Past Surgical History / Comment(s): Cervical fusion, back lami/injections, carpal tunnel surgery, colonoscopy/benign polypectomy. Past Anesthesia/Blood Transfusion Reactions: No Reported Reaction Date of Last Stent Placement:: 2012 Past Psychological History: No Psychological Hx Reported Smoking Status: Never smoker Past Alcohol Use History: None Reported Past Drug Use History: None Reported - Past Family History Father Family Medical History: Myocardial Infarction ([place]) Additional Family Medical History / Comment(s): Passed at age 72. Mother Family Medical History: Myocardial Infarction ([place]) Additional Family Medical History / Comment(s): Passed at age 77. Brother(s) Family Medical History: Myocardial Infarction ([place]) Additional Family Medical History / Comment(s): 3 brothers passed from [place] in 50's. General Exam - General Exam Comments Initial Comments: 74-year-old male. Alert and oriented. No distress. Limitations: no limitations General appearance: alert, in no apparent distress Head exam: Present: atraumatic, normocephalic, normal inspection Eye exam: Present: normal appearance, PERRL, EOMI. Absent: scleral icterus, conjunctival injection, periorbital swelling ENT exam: Present: normal exam, normal oropharynx, mucous membranes moist Neck exam: Present: normal inspection. Absent: tenderness, meningismus, lymphadenopathy Respiratory exam: Present: normal lung sounds bilaterally. Absent: respiratory distress, wheezes, rales, rhonchi, stridor Cardiovascular Exam: Present: regular rate, normal rhythm, normal heart sounds. Absent: systolic murmur, diastolic murmur, rubs, gallop, clicks GI/Abdominal exam: Present: soft, normal bowel sounds. Absent: distended, tenderness, guarding, rebound, rigid Extremities exam: Present: normal inspection, full ROM, normal capillary refill. Absent: tenderness, pedal edema, joint swelling, calf tenderness Back exam: Present: normal inspection Neurological exam: Present: alert, oriented X3, CN II-XII intact Psychiatric exam: Present: normal affect, normal mood Skin exam: Present: warm, dry, intact, normal color. Absent: rash Course Vital Signs 07/20/19 07/20/19 07/20/19 05:49 06:31 07:00 Temperature 97.9 F Pulse Rate 77 71 68 Respiratory 18 18 18 Rate Blood Pressure 180/75 103/59 132/74 O2 Sat by Pulse 98 98 98 Oximetry 07/20/19 07:18 Temperature Pulse Rate 63 Respiratory 18 Rate Blood Pressure 125/70 O2 Sat by Pulse 98 Oximetry Chest Pain [facility] Patient is a 74-year-old male with a history of coronary artery disease, diabetes and hypertension. He reports he's been having some chest pain intermittently for the past 2 weeks with exertion. He does state that over the past day he has had worsening pain with radiation down the left arm. He reports that it was relieved after taking nitro at home. There are some inspiratory take plenty his pain is a 6 out of 10. Patient had stat EKG which shows no acute changes. Lab work was reviewed and otherwise unremarkable including a negative troponin. Chest x-ray shows chronic changes and cardiomegaly without any suspicious acute pulmonary process. However given patient's previous history of coronary disease and symptoms consistent with ACS discussed admitting the Patient, starting on heparin with repeat troponins. Patient is agreeable to this treatment plan will comply. I discussed the case with Dr. Wilson who discussed case with . Disposition Clinical Impression: Unstable angina Disposition: ADMITTED IP TO THIS HOSP Condition: Stable Is patient prescribed a controlled substance at d/c from ED?: No Referrals: None,Stated [REFERRING] - 1-2 days Time of Disposition: 07:28
[2019-07-20 06:35] LABS: Appearance,Urine Clear (Clear); Bilirubin,Urine Negative (Negative); Blood,Urine Negative (Negative); Color,Urine Light Yellow; Glucose,Urine (UA) Negative (Negative); Ketones,Urine Negative (Negative); Leukocyte Esterase,Urine Negative (Negative); Nitrite,Urine Negative (Negative); Protein,Urine Negative (Negative); Specific Gravity,Urine 1.006 (1.001-1.035); Urobilinogen,Urine <2.0 mg/dL (<2.0)
[2019-07-20 06:39] LABS: Basophils # (A) 0.1 k/uL (0-0.2); Basophils % (A) 1 %; Eosinophils % (A) 13 %; HGB 12.8 gm/dL (13.0-17.5); Lymphocytes # (A) 2.6 k/uL (1.0-4.8); Lymphocytes % (A) 35 %; MCH 28.1 pg (25.0-35.0); MCHC 32.9 g/dL (31.0-37.0); MCV 85.4 fL (80.0-100.0); Mean Platelet Volume 7.3; Monocytes # (A) 0.5 k/uL (0-1.0); Monocytes % (A) 7 %; Neutrophils % (A) 40 %; Platelet Count 279 k/uL (150-450); RBC 4.57 m/uL (4.30-5.90); WBC 7.5 k/uL (3.8-10.6)
[2019-07-20 06:42] LABS: Partial Thromboplastin Time 24.6 sec (22.0-30.0)
[2019-07-20 06:45] LABS: ALT 25 U/L (4-49); AST 25 U/L (17-59); African American GFR (CKD) >90 (>60 ml/min/1.73 sqM); Albumin 4.7 g/dL (3.5-5.0); Alkaline Phosphatase 111 U/L (38-126); Amylase 66 U/L (30-110); Anion Gap 11 mmol/L; Blood Urea Nitrogen 18 mg/dL (9-20); Calcium 9.7 mg/dL (8.4-10.2); Carbon Dioxide 24 mmol/L (22-30); Chloride 103 mmol/L (98-107); Glucose 132 mg/dL (74-99); Magnesium 1.7 mg/dL (1.6-2.3); Non-African American GFR(CKD) 81 (>60 ml/min/1.73 sqM); Potassium 5.1 mmol/L (3.5-5.1); Sodium 138 mmol/L (137-145); Total Bilirubin 0.3 mg/dL (0.2-1.3); Total Protein 7.8 g/dL (6.3-8.2)
--- NOTE | 2019-07-20 06:48 | XR ---
EXAMINATION TYPE: XR chest 2V DATE OF EXAM: 07/20/2019 COMPARISON: Chest x-ray February 12, 2019. CTA chest October 15, 2017. HISTORY: Chest pain. TECHNIQUE: Frontal and lateral views of the chest are obtained. FINDINGS: Overlying EKG leads are redemonstrated. Partial visualization of surgical change in the ce rvical spine. Slightly elevated lateral aspect left hemidiaphragm. Chronic parenchymal changes bilate rally redemonstrated without suspicious new focal airspace opacity, pleural effusion, or pneumothorax seen bilaterally. Stable mild cardiomegaly.. IMPRESSION: Chronic changes and mild cardiomegaly without new suspicious acute pulmonary process.
[2019-07-20] MEDS ORDERED: NITROGLYCERIN SL TABS 0.4 MG TAB SUBLINGUAL PRN (07:23)
[2019-07-20] MEDS ORDERED: MORPHINE SULFATE 4 MG/ML SYRINGE IV PRN (07:23)
[2019-07-20] MEDS ORDERED: HEPARIN SODIUM,PORCINE 5,000 UNIT/ML 1 ML VIAL IV ONE (07:23)
[2019-07-20] MEDS ORDERED: HEPARIN SOD,PORK IN 0.45% NACL 25,000 UNIT in 0.45% NACL 1 250ML.BAG IV SCH (07:30)
[2019-07-20] MEDS ORDERED: FAMOTIDINE 20 MG/2 ML VIAL IV STA (07:34)
[2019-07-20] MEDS ORDERED: DOBUTamine DRIP for NUC MED 500 MG in DEXTROSE/WATER 1 250ML.BAG IV ONE (11:28)
--- NOTE | 2019-07-20 12:13 | CONS ---
CONSULTATION CHIEF COMPLAINT: Chest pain. Mr. Benjamin is a 74-year-old gentleman with history of coronary artery disease, status post prior multivessel angioplasty, who presented to hospital complaining of chest pain. He describes it as a precordial chest pressure, mild intensity, unassociated with diaphoresis and unrelated to exertion. It radiated to his back. The patient states that he has been having these symptoms for the last 2-3 weeks and it has gotten worse of late. He has known CAD and underwent cardiac catheterization in 2018 that revealed mild disease involving right coronary artery, circumflex coronary artery and LAD and was advised medical therapy. At the time of my evaluation. His EKG does not reveal ischemic changes and cardiac enzymes have been negative. PAST MEDICAL HISTORY: Significant for coronary artery disease, hypertension, diabetes, dyslipidemia. ALLERGIES: Are as charted. FAMILY HISTORY: Negative for premature coronary artery disease. SOCIAL HISTORY: Negative for smoking, EtOH abuse, or drug abuse. REVIEW OF SYSTEMS: HEENT: Unremarkable. CARDIAC: As described above. RESPIRATORY: As described above. GI: Negative. GENITOURINARY: Negative. ALLERGY/IMMUNOLOGY: Negative. SKIN: Negative. MUSCULOSKELETAL: Significant for arthritis. PSYCHOSOCIAL: Negative. ENDOCRINE: Negative. DERM: Negative. CONSTITUTIONAL: Negative. ONCOLOGICAL: Negative. INFORMATION SYSTEMS PROJECT MANAGER: Negative. Rest of the system review is not relevant. PAST SURGICAL HISTORY: Significant for back surgery, cervical fusion, colonoscopy with polypectomy and coronary artery disease with stent. On exam, patient appears comfortable at rest. Vital signs are stable. There is no jugular venous distention. Carotid upstroke is normal. There is no bruit. Chest exam reveals good air entry bilaterally. Heart exam reveals first and second heart sounds. No gallop. No murmur. Abdomen is soft, nontender. Exam of extremities did not reveal any edema. Peripheral pulses are felt. ASSESSMENT: 1. Unstable angina in a patient with known CAD. 2. Hypertension. 3. Diabetes. 4. Dyslipidemia. PLAN: I will obtain serial CPKs to rule out myocardial infarction. If myocardial infarction is ruled out. He will undergo a dobutamine echo tomorrow. MMODL / IJN: [id number] /
[2019-07-20] MEDS ORDERED: HYDROcodone/APAP 7.5-325MG 1 EACH TAB PO PRN (12:45)
[2019-07-20] MEDS: INSULIN ASPART (NovoLOG) 100 UNIT/ML VIAL SQ SCH ×2 (13:16→20:25)
[2019-07-20 13:20] LABS: Glucose,Whole Blood 174 mg/dL (75-99)
[2019-07-20] MEDS ORDERED: HEPARIN SODIUM,PORCINE 5,000 UNIT/ML 1 ML VIAL IV PRN (15:49)
[2019-07-20 17:40] LABS: Glucose,Whole Blood 176 mg/dL (75-99)
[2019-07-20] MEDS ORDERED: MORPHINE SULFATE 2 MG/ML SYRINGE IV PRN (18:02)
[2019-07-20] MEDS ORDERED: NALOXONE 0.4 MG/ML 1 ML VIAL IV PRN (18:02)
--- NOTE | 2019-07-20 18:02 | P.HPIM ---
History of Present Illness H&P Date: 07/20/19 Chief Complaint: Chest pain 74-year-old male with PMH of diabetes mellitus, hypertension, dyslipidemia, CAD presents the ED for chest pain. Patient reports sternal chest pain that has been ongoing for the past 2 weeks. Over the last 3 days, he has experienced chest pain over the left side of his chest with radiation to the left upper extremity. When the chest pain did not resolve this prompted the patient to come to the ED. He describes the pain as dull in nature. Pain is 7 out of 10 in severity and intermittent but can last all day. Chest pain is not related to exertion. He does report that the sternal chest pain is worsened in the morning and at night. He denies any symptoms of heartburn or indigestion. He denies any associating symptoms. He denies any lower extremity edema, nausea or vomiting, diaphoresis, shortness of breath or palpitations. He denies any dizziness. He denies any headache, lower extremity edema, fever or chills. He denies any numbness/weakness/tingling of the extremities. In the ED, his vital signs were stable. CBC showed hemoglobin of 12.8. INR was 1. CMP showed glucose of 132. Troponin was less than 0.012, EKG showing normal sinus rhythm. Urinalysis was negative. BNP was negative. Amylase and lipase was negative. Chest x-ray showed chronic changes. Patient is admitted for chest pain, rule out acute coronary syndrome with cardiology consultation. Review of Systems Pertinent positives and negatives as discussed in HPI, a complete review of systems was performed and all other systems are negative. Past Medical History Past Medical History: Asthma, Coronary Artery Disease (CAD), Chest Pain / Angina, Diabetes Mellitus, GERD/Reflux, Hearing Disorder / Deafness, Hyperlipidemia, Hypertension Additional Past Medical History / Comment(s): Admitted to [facility] on 06/07/18 with acute exacerbation asthma, hypokalemia, dehydration. Hx chronic back pain, chronic pain syndrome, constipation, NIDDM type II, neuropathy bilateral feet, IONE/uses hearing aids bilaterally. History of Any Multi-Drug Resistant Organisms: None Reported Past Surgical History: Back Surgery, Heart Catheterization With Stent, Orthopedic Surgery Additional Past Surgical History / Comment(s): Cervical fusion, back lami/injections, carpal tunnel surgery, colonoscopy/benign polypectomy. Past Anesthesia/Blood Transfusion Reactions: No Reported Reaction Date of Last Stent Placement:: 2012 Past Psychological History: No Psychological Hx Reported Additional Psychological History / Comment(s): Pt resides with his spouse. He uses a walker to ambulate on occasion. Normally, he drives. Smoking Status: Never smoker Past Alcohol Use History: None Reported Past Drug Use History: None Reported - Past Family History Father Family Medical History: Myocardial Infarction (NM) Additional Family Medical History / Comment(s): Passed at age 72. Mother Family Medical History: Myocardial Infarction (NM) Additional Family Medical History / Comment(s): Passed at age 77. Brother(s) Family Medical History: Myocardial Infarction ([place]) Additional Family Medical History / Comment(s): 3 brothers passed from [place] in 50's. Medications and Allergies Home Medications Medication Instructions Recorded Confirmed Type Quinapril HCl 40 mg PO DAILY 01/17/14 07/20/19 History glipiZIDE [Glucotrol] 20 mg PO BID 01/17/14 07/20/19 History amLODIPine BESYLATE [Norvasc] 10 mg PO DAILY 04/19/14 07/20/19 History Atorvastatin [Lipitor] 40 mg PO DAILY 08/08/14 07/20/19 History Pregabalin [Lyrica] 150 mg PO BID 06/21/16 07/20/19 History Omeprazole 20 mg PO DAILY 08/28/17 07/20/19 History HYDROcodone/APAP 7.5-325MG [[place] 1 tab PO QID PRN 10/16/17 07/20/19 History 7.5-325] metFORMIN HCL 1,000 mg PO BID #0 10/18/17 07/20/19 Rx Nitroglycerin Sl Tabs [Nitrostat] 0.4 mg SUBLINGUAL Q5M PRN 03/02/18 07/20/19 History Aspirin EC [Ecotrin Low Dose] 81 mg PO DAILY 02/12/19 07/20/19 History Cholecalciferol [Vitamin D3 (25 1,000 unit PO DAILY 02/12/19 07/20/19 History Mcg = 1000 Iu)] Cyanocobalamin (Vitamin B-12) 5,000 mcg PO AC-BRKFST 02/12/19 07/20/19 History [Vitamin B-12] INSULIN LISPRO (humaLOG) [humaLOG] See Protocol SQ PC-TID 07/20/19 07/20/19 History Insulin Glargine [Lantus] 30 unit SQ HS 07/20/19 07/20/19 History Allergies Allergy/AdvReac Type Severity Reaction Status Date / Time No Known Allergies Allergy Verified 07/20/19 10:50 Physical Exam Vitals: Vital Signs Temp Pulse Pulse Resp BP BP Pulse Ox 07/20/19 17:15 98.5 F 16 07/20/19 17:00 98.5 F 63 18 141/79 96 07/20/19 16:41 97.9 F 70 18 143/67 98 07/20/19 15:50 67 18 129/68 95 07/20/19 14:23 69 18 142/73 96 07/20/19 09:52 60 18 136/76 96 07/20/19 07:18 63 18 125/70 98 07/20/19 07:00 68 18 132/74 98 07/20/19 06:31 71 18 103/59 98 07/20/19 05:49 97.9 F 77 18 180/75 98 Intake and Output 07/20/19 07/20/19 07/20/19 06:59 14:59 22:59 Intake Total 313.013 Balance 313.013 Intake: Intake, IV Titration 73.013 Amount Heparin Sod,Pork in 0.45% 73.013 NaCl 25,000 unit In 0.45 % NaCl 1 250ml.bag @ 11 UNITS/KG/HR 9.979 mls/hr IV .Q24H [facility] Rx#: [id number] Oral 240 Other: Weight 90.718 kg General: [non toxic], [no distress], [appears at stated age] Derm: [warm], [dry] Head: [atraumatic], [normocephalic], [symmetric] Eyes: [EOMI], [no lid lag], [anicteric sclera] Mouth: [no lip lesion], [mucus membranes moist] Cardiovascular: [S1S2 reg], [no murmur], [positive posterior tibial pulse bilateral], Lungs: [CTA bilateral], [no rhonchi, no rales] , [no accessory muscle use] Abdominal: [soft], [ nontender to palpation], [no guarding], [no appreciable organomegaly] Ext: [no gross muscle atrophy], [no edema], [no contractures] Neuro: [ CN II-XI grossly intact], [no focal neuro deficits] Psych: [Alert], [oriented], [appropriate affect] Results CBC & Chem 7: 07/20/19 06:11 07/20/19 06:11 Labs: Abnormal Lab Results - Last 24 Hours (Table) 07/20/19 07/20/19 07/20/19 Range/Units 06:11 06:11 13:13 Hgb 12.8 L (13.0-17.5) gm/dL Eosinophils # 1.0 H (0-0.7) k/uL APTT (22.0-30.0) sec Glucose 132 H (74-99) mg/dL POC Glucose (mg/dL) 174 H (75-99) mg/dL 07/20/19 07/20/19 Range/Units 15:15 17:30 Hgb (13.0-17.5) gm/dL Eosinophils # (0-0.7) k/uL APTT 38.2 H (22.0-30.0) sec Glucose (74-99) mg/dL POC Glucose (mg/dL) 176 H (75-99) mg/dL Assessment and Plan Assessment: Chest pain with history of CAD Diabetes mellitus with hyperglycemia Hypertension Dyslipidemia Troponin has been less than 0.0122 with EKG showing normal sinus rhythm. ACS has been ruled out. Chest x-ray negative. Plans: Cardiology has been consulted and plans for stress echo tomorrow. We will continue aspirin and Lipitor. Discontinue heparin drip started in the ED. Patient would likely benefit from beta autumn. Continue telemetry monitoring. Follow gallbladder ultrasound. [place]-[id number] glucose 176. Plans: Levemir 30 units at bedtime. NovoLog 8 units with meals. Insulin sliding scale. Regular Accu-Cheks. Hypoglycemic pre cautions. BP 136/76. Plans: Continue amlodipine, lisinopril. Monitor vitals, adjust medications as necessary. Plans: Continue Lipitor. Follow lipid panel. DVT prophylaxis: [SCD boots] Discussed with: [Patient] Anticipated discharge: [1-2 days] Anticipated discharge place: [Home] A total of [35] minutes was spent on the care of this complex patient more than 50% of the time was spent in counseling and care coordination. Patient names his Diane decision maker if he can't make decisions for himself. Patient would like to be full code.
[2019-07-20 20:23] LABS: Glucose,Whole Blood 149 mg/dL (75-99)
[2019-07-20] MEDS: PREGABALIN 75 MG CAP PO SCH (20:24)
[2019-07-20] MEDS ORDERED: INSULIN DETEMIR (LEVEMIR) 100 UNIT/ML SYR SQ SCH (21:00)
[2019-07-21 02:18] LABS: Glucose,Whole Blood 170 mg/dL (75-99)
[2019-07-21 03:20] LABS: Cholesterol 157 mg/dL (<200); HDL Cholesterol 40 mg/dL (40-60); LDL Cholesterol,Calculated 67 mg/dL (0-99); Triglycerides 249 mg/dL (<150)
[2019-07-21] MEDS: INSULIN ASPART (NovoLOG) 100 UNIT/ML VIAL SQ SCH ×6 (06:03→17:19)
[2019-07-21 06:19] LABS: Glucose,Whole Blood 156 mg/dL (75-99)
[2019-07-21] MEDS ORDERED: PANTOPRAZOLE 40 MG TABLET PO SCH (07:30)
--- NOTE | 2019-07-21 08:06 | US ---
EXAMINATION TYPE: US gallbladder DATE OF EXAM: 07/21/2019 COMPARISON: None CLINICAL HISTORY: Abdominal pain. r/o gallstone. NPO EXAM MEASUREMENTS: Liver Length: 14.9 cm Gallbladder Wall: 0.2 cm Right Kidney: 10.7 x 4.5 x 4.5 cm Limited exam due to overlying bowel gas Pancreas: Obscured by bowel gas Liver: Scanned through ribs. There is increased echogenicity of the hepatic parenchyma with diminis hed visualization of the portal triads most commonly relating to hepatic steatosis and limiting evalu ation for underlying hepatic masses. Gallbladder: No stones seen Evidence for sonographic Madden's sign: neg CBD: Obscured by overlying bowel gas Right Kidney: No hydronephrosis or masses seen IMPRESSION: 1. Sonographic findings most commonly related to hepatic steatosis. Correlate with liver function talia ts. 2. No sonographic evidence of cholelithiasis nor acute cholecystitis although the common bile duct is obscured by bowel gas. 3. Obscuration of the pancreas by overlying bowel gas.
[2019-07-21] MEDS ORDERED: LISINOPRIL 20 MG TAB PO SCH (09:00)
[2019-07-21] MEDS ORDERED: ASPIRIN 81 MG PO SCH (09:00)
[2019-07-21] MEDS ORDERED: amLODIPine 10 MG TAB PO SCH (09:00)
[2019-07-21] MEDS ORDERED: ATORVASTATIN 40 MG TAB PO SCH (09:00)
[2019-07-21] MEDS ORDERED: ASPIRIN 325 MG TAB PO SCH (09:00)
[2019-07-21 10:08] VITALS: RESP 16
[2019-07-21] MEDS ORDERED: MAG HYDROX/AL HYDROX/SIMETH 30 ML CUP PO PRN (10:35)
--- NOTE | 2019-07-21 10:42 | P.DS ---
Providers Date of admission: 07/20/19 07:24 Expected date of discharge: 07/21/19 Attending physician: Nino Koenig MD Consults: 07/20/19 07:23 Consult Physician Urgent Consulting Provider: Ree Aranda Consult Reason/Comments: Unstable Angina Do you want consulting provider notified?: Yes Primary care physician: [facility] Course: 74-year-old male with PMH of diabetes mellitus, hypertension, dyslipidemia, CAD presents the ED for chest pain. Patient reports sternal chest pain that has been ongoing for the past 2 weeks. Over the last 3 days, he has experienced chest pain over the left side of his chest with radiation to the left upper extremity. When the chest pain did not resolve this prompted the patient to come to the ED. He describes the pain as dull in nature. Pain is 7 out of 10 in severity and intermittent but can last all day. Chest pain is not related to exertion. He does report that the sternal chest pain is worsened in the morning and at night. He denies any symptoms of heartburn or indigestion. He denies any associating symptoms. He denies any lower extremity edema, nausea or vomiting, diaphoresis, shortness of breath or palpitations. He denies any dizziness. He denies any headache, lower extremity edema, fever or chills. He denies any numbness/weakness/tingling of the extremities. In the ED, his vital signs were stable. CBC showed hemoglobin of 12.8. INR was 1. CMP showed glucose of 132. Troponin was less than 0.012, EKG showing normal sinus rhythm. Urinalysis was negative. BNP was negative. Amylase and lipase was negative. Chest x-ray showed chronic changes. Patient is admitted for chest pain, rule out acute coronary syndrome with cardiology consultation. Troponin was less than 0.0123 with EKG showing normal sinus rhythm. ACS was ruled out. Cardiology was consulted and recommended stress echocardiogram. Stress echocardiogram was pending at the time of this note. He was continued on aspirin and Lipitor. He was initially on a heparin drip which was discontinued after 2 negative troponins. Gallbladder ultrasound was negative for cholelithiasis or cholecystitis but did show some fatty liver. His home medications were restarted for hypertension and he was started on insulin sliding scale for his diabetes mellitus. Lipid panel showed total cholesterol 157, LDL 67, HDL 40 and triglyceride of 249. Patient was seen and examined this morning. No acute events overnight. Patient reports epigastric discomfort this morning similar to the pain that he has been experiencing for the past 2 weeks. No more left-sided chest pain. He denies any shortness of breath or palpitations. No nausea or vomiting. No fever or chills. He does have a history of hiatal hernia. General: [non toxic], [no distress], [appears at stated age] Derm: [warm], [dry] Head: [atraumatic], [normocephalic], [symmetric] Eyes: [EOMI], [no lid lag], [anicteric sclera] Mouth: [no lip lesion], [mucus membranes moist] Cardiovascular: [S1S2 reg], [no murmur], [positive posterior tibial pulse bilateral], Lungs: [CTA bilateral], [no rhonchi, no rales] , [no accessory muscle use] Abdominal: [soft], [mild epigastric tenderness], [no guarding], [no appreciable organomegaly] Ext: [no gross muscle atrophy], [no edema], [no contractures] Neuro: [no focal neuro deficits] Psych: [Alert], [oriented], [appropriate affect] Chest pain with history of CAD Epigastric pain Diabetes mellitus with hyperglycemia Hypertension Dyslipidemia Troponin has been less than 0.0123 with EKG showing normal sinus rhythm. ACS has been ruled out. Chest x-ray negative. Gallbladder ultrasound negative for gallbladder pathology but does show hepatic steatosis. Plans: Cardiology has been consulted and plans for stress echo today. We will continue aspirin and Lipitor. Discontinue heparin drip started in the ED. Patient would likely benefit from beta autumn, to be decided by cardiology. Continue telemetry monitoring. Possibly related to GERD or gastritis with history of hiatal hernia. Plans: Maalox as needed. Start Pepcid twice a day. [place]ashk-dv-nitr glucose 156. Plans: Levemir 30 units at bedtime. NovoLog 8 units with meals. Insulin sliding scale. Regular Accu-Cheks. Hypoglycemic precautions. BP 141/81. Plans: Continue amlodipine, lisinopril. Monitor vitals, adjust medications as necessary. Lipid panel shows elevated triglycerides of 249. Plans: Continue Lipitor. [Patient was chest pain. ACS ruled out. Appears to be GI in nature. Patient would benefit from endoscopy in the outpatient setting. He will need to follow- up with PCP for further workup and management of symptoms. Plans on DC home today if stress test negative and cardiology clearance.] Pertinent Studies: Chest x-ray, gallbladder ultrasound, echocardiogram, stress test Patient Condition at Discharge: Stable Plan - Discharge Summary New Discharge Prescriptions: New Mag Hydrox/Al Hydrox/Simeth [Maalox] 30 ml PO Q4HR PRN ml PRN Reason: Gi Upset Continue glipiZIDE [Glucotrol] 20 mg PO BID Quinapril HCl 40 mg PO DAILY amLODIPine BESYLATE [Norvasc] 10 mg PO DAILY Atorvastatin [Lipitor] 40 mg PO DAILY Pregabalin [Lyrica] 150 mg PO BID Omeprazole 20 mg PO DAILY HYDROcodone/APAP 7.5-325MG [[place] 7.5-325] 1 tab PO QID PRN PRN Reason: Pain metFORMIN HCL 1,000 mg PO BID #0 Nitroglycerin Sl Tabs [Nitrostat] 0.4 mg SUBLINGUAL Q5M PRN PRN Reason: Chest Pain Cholecalciferol [Vitamin D3 (25 Mcg = 1000 Iu)] 1,000 unit PO DAILY Aspirin EC [Ecotrin Low Dose] 81 mg PO DAILY Cyanocobalamin (Vitamin B-12) [Vitamin B-12] 5,000 mcg PO AC-BRKFST Insulin Glargine [Lantus] 30 unit SQ HS INSULIN LISPRO (humaLOG) [humaLOG] See Protocol SQ PC-TID Discharge Medication List Quinapril HCl 40 mg PO DAILY 01/17/14 [History] glipiZIDE [Glucotrol] 20 mg PO BID 01/17/14 [History] amLODIPine BESYLATE [Norvasc] 10 mg PO DAILY 04/19/14 [History] Atorvastatin [Lipitor] 40 mg PO DAILY 08/08/14 [History] Pregabalin [Lyrica] 150 mg PO BID 06/21/16 [History] Omeprazole 20 mg PO DAILY 08/28/17 [History] HYDROcodone/APAP 7.5-325MG [[place] 7.5-325] 1 tab PO QID PRN 10/16/17 [History] metFORMIN HCL 1,000 mg PO BID #0 10/18/17 [Rx] Nitroglycerin Sl Tabs [Nitrostat] 0.4 mg SUBLINGUAL Q5M PRN 03/02/18 [History] Aspirin EC [Ecotrin Low Dose] 81 mg PO DAILY 02/12/19 [History] Cholecalciferol [Vitamin D3 (25 Mcg = 1000 Iu)] 1,000 unit PO DAILY 02/12/19 [History] Cyanocobalamin (Vitamin B-12) [Vitamin B-12] 5,000 mcg PO AC-BRKFST 02/12/19 [History] INSULIN LISPRO (humaLOG) [humaLOG] See Protocol SQ PC-TID 07/20/19 [History] Insulin Glargine [Lantus] 30 unit SQ HS 07/20/19 [History] Mag Hydrox/Al Hydrox/Simeth [Maalox] 30 ml PO Q4HR PRN ml 07/21/19 [Rx] Follow up Appointment(s)/Referral(s): None,Stated [REFERRING] - 1-2 days Activity/Diet/Wound Care/Special Instructions: Diet: Cardiac Follow-up with PCP within 3 days of discharge. Take all medications as advised. Come back to the ED or call 911 for worsening chest pain, shortness of breath, dizziness or palpitations. He will likely need workup for gastric pain with history of hiatal hernia. Need to FU with PCP for further workup. Continue Prilosec (home medication) in the meantime. Discharge Disposition: HOME SELF-CARE
[2019-07-21] MEDS ORDERED: FAMOTIDINE 20 MG TAB PO SCH (10:45)
[2019-07-21] MEDS: PREGABALIN 75 MG CAP PO SCH (11:16)
--- NOTE | 2019-07-21 11:34 | P.PN ---
Subjective Progress Note Date: 07/21/19 This is a 74-year-old gentleman with known history of coronary artery disease, prior multivessel angioplasty who presented to the hospital with symptoms of chest discomfort. He underwent a cardiac catheterization in 2018 which revealed mild disease involving the right coronary artery, circumflex, LAD and was advised medical therapy. He also has history of hypertension, diabetes, hyperlipidemia. Patient was seen in consultation yesterday by Dr. Kirby, he was ordered to have an echo and dobutamine echo performed today. Patient underwent an ultrasound of the gallbladder which showed possible hepatic steatosis, no evidence of cholelithiasis or acute cholecystitis. Obscuration of the pancreas by overlying bowel gas. Blood pressure 140/80 with a heart rate in the 50s, 94% on room air. Troponins were negative. Objective - Vital Signs Vital signs: Vital Signs Temp 98.1 F 07/21/19 08:00 Pulse 58 L 07/21/19 08:00 Resp 16 07/21/19 08:00 BP 141/81 07/21/19 08:00 Pulse Ox 94 L 07/21/19 08:00 Intake & Output 07/20/19 07/21/19 07/21/19 18:59 06:59 18:59 Intake Total 313.013 Balance 313.013 Weight 90.718 kg 87.5 kg Intake: Intake, IV Titration 73.013 Amount Heparin Sod,Pork in 0.45% 73.013 NaCl 25,000 unit In 0.45 % NaCl 1 250ml.bag @ 11 UNITS/KG/HR 9.979 mls/hr IV .Q24H [facility] Rx#: [id number] Oral 240 Other: # Voids 1 1 - Exam PHYSICAL EXAMINATION: GENERAL: 74-year-old gentleman in no acute distress at the time of my examination HEENT: Head is atraumatic, normocephalic. Pupils equal, round. Sclera anicteric. Conjunctiva are clear. Mucous membranes of the mouth are moist. Neck is supple. There is no elevated jugular venous pressure. No carotid bruit is heard. HEART EXAMINATION: Heart S1, S2 normal. No murmur or gallop heard. CHEST EXAMINATION: Lungs are clear to auscultation and precussion. No chest wall tenderness is noted on palpation or with deep breathing. ABDOMEN: Soft, nontender. Bowel sounds are heard. No organomegaly noted. EXTREMITIES: 2+ peripheral pulses with no evidence of peripheral edema and no calf tenderness noted. NEUROLOGIC patient is awake, alert and oriented 3. . - Labs CBC & Chem 7: 07/20/19 06:11 07/20/19 06:11 Labs: Abnormal Lab Results - Last 24 Hours (Table) 07/20/19 07/20/19 07/20/19 Range/Units 06:11 13:13 15:15 APTT 38.2 H (22.0-30.0) sec POC Glucose (mg/dL) 174 H (75-99) mg/dL Triglycerides 249 H (<150) mg/dL 07/20/19 07/20/19 07/20/19 Range/Units 17:30 20:22 22:05 APTT 52.5 H (22.0-30.0) sec POC Glucose (mg/dL) 176 H 149 H (75-99) mg/dL Triglycerides (<150) mg/dL 07/21/19 07/21/19 Range/Units 02:15 06:18 APTT (22.0-30.0) sec POC Glucose (mg/dL) 170 H 156 H (75-99) mg/dL Triglycerides (<150) mg/dL Assessment and Plan Plan: Assessment and plan #1 chest pain, troponins negative 3, EKG does not reveal any significant changes. #2 known history of coronary artery disease status post multivessel angioplasty #3 hypertension #4 diabetes #5 hypertension #6 hyperlipidemia Plan We will review the patient's echo as well as dobutamine echocardiographic study. If negative, patient may be able to be discharged home from our perspective. Further recommendations to follow. DNP note has been reviewed, I agree with a documented findings and plan of care. Patient was seen and examined.
[2019-07-21 11:38] LABS: Glucose,Whole Blood 178 mg/dL (75-99)
--- NOTE | 2019-07-21 16:28 | ECHOS ---
STRESS ECHOCARDIOGRAM LUMASON: Vial INDICATIONS: Chest pain. MEDICATIONS: BASELINE HEART RATE: 62 BASELINE BLOOD PRESSURE: 152/64 MAXIMUM HEART RATE: 120 MAXIMUM BLOOD PRESSURE: 162/71 85% MPHR: 123 100% MPHR: 140 METS: MAXIMUM STAGE REACHED: TOTAL EXERCISE TIME: CLINICAL INFORMATION: Baseline EKG revealed normal sinus rhythm without significant ST and T-wave changes. With the dobutamine administration, heart rate went up to 120 beats per minute. Patient 85% was actually 124 beats per minute. Rare PVCs were noted. At this heart rate level, he did not have any significant symptoms. There were no ST-segment changes to indicate ischemia. This is therefore a negative dobutamine stress test and the heart rate achieved was an almost 85% of predicted maximal. Baseline echo images revealed normal wall motion and wall thickening of all segments. At a maximal heart rate of 120 beats per minute, which is almost 85% of his predicted maximum, there was no evidence of any ischemia. There was good augmentation of left ventricular wall motion and wall thickening of all segments suggesting that there is no evidence of stress-induced ischemia on this study. The quality of the images were suboptimal. Patient therefore received some echo contrast enhance quality of images. FINAL IMPRESSION: 1. By EKG criteria this is an unremarkable dobutamine stress test. Patient achieved 84% of his predicted maximal heart rate. He had no symptoms. 2. This is an unremarkable dobutamine stress echocardiogram. The patient achieved 85% of predicted maximal heart rate with the dobutamine administration. There is no evidence to suggest any ischemia at this heart rate level. MMODL / IJN: [id number] /
[2019-07-21 16:34] LABS: Glucose,Whole Blood 158 mg/dL (75-99)
[2019-07-21 16:36] VITALS: BP 105/52; PULSE 62; TEMP 97.8
== END 2019-07-21 18:12 | disposition home or self-care (01) ==
LOC: EC 05:47 → 3SCARD 07:24
PROVIDERS: ADMIT Family Medicine; ATTEND Family Medicine
DX: R07.89 Other chest pain (principal); R10.13 Epigastric pain; E11.65 Type 2 diabetes mellitus with hyperglycemia; E78.5 Hyperlipidemia, unspecified; K44.9 Diaphragmatic hernia without obstruction or gangrene; E78.1 Pure hyperglyceridemia; M79.602 Pain in left arm; R06.02 Shortness of breath; R11.0 Nausea; R07.2 Precordial pain; I11.9 Hypertensive heart disease without heart failure; M19.90 Unspecified osteoarthritis, unspecified site; I25.110 Atherosclerotic heart disease of native coronary artery with unstable angina pectoris; M54.9 Dorsalgia, unspecified; K76.0 Fatty (change of) liver, not elsewhere classified; J45.909 Unspecified asthma, uncomplicated; K21.9 Gastro-esophageal reflux disease without esophagitis; H91.90 Unspecified hearing loss, unspecified ear; G89.4 Chronic pain syndrome; K59.00 Constipation, unspecified; E11.40 Type 2 diabetes mellitus with diabetic neuropathy, unspecified; G62.9 Polyneuropathy, unspecified; Z97.4 Presence of external hearing-aid; Z98.1 Arthrodesis status; Z95.5 Presence of coronary angioplasty implant and graft; Z79.899 Other long term (current) drug therapy; Z79.82 Long term (current) use of aspirin; Z79.891 Long term (current) use of opiate analgesic; Z79.4 Long term (current) use of insulin; Z86.010 Personal history of colon polyps; Z82.49 Family history of ischemic heart disease and other diseases of the circulatory system; Z11.59 Encounter for screening for other viral diseases
CPT/HCPCS: 36415; 71046; 76705; 80053; 80061; 81003; 82150; 83690; 83735; 83880; 84484; 85025; 85610; 85730; 87635; 93005; 93351; 96361; 96365; 96366; 96375; 96376; 99285

== ENCOUNTER → 2019-07-23 | Outpatient (CLI) | payer MEDICARE ==
--- NOTE | 2019-07-23 10:00 | XR ---
EXAMINATION TYPE: XR lumbar spine 2 or 3V DATE OF EXAM: 07/23/2019 COMPARISON: 03/29/2019. HISTORY: Spondylosis lumbar spine TECHNIQUE: Three-view lumbar spine FINDINGS: Pedicle screws are present L2-S1. Fixation rods are present L 2 to 3 mL for S1 levels. Disc spacers are present L2-3 and L5-S1. Laminectomy has been performed in the lower lumbar spine L4-5 re gions. There 5 lumbar-type vertebral bodies. Degenerative disc changes are present L3-4. There is loss of di sc height L4-5. Alignment appears normal. Vertebral body heights appear preserved. Vascular calcification is within the aorta. IMPRESSION: 1. Multilevel postsurgical changes. 2. Degenerative disc changes notably L3-4 and L4-5.
== END | disposition home or self-care (01) ==
LOC: RADXRMAIN 09:28
PROVIDERS: ATTEND Physician Assistant Surgical
DX: M47.816 Spondylosis without myelopathy or radiculopathy, lumbar region (principal); Z98.890 Other specified postprocedural states
CPT/HCPCS: 72100

== ENCOUNTER 2019-09-10 07:34 | Day surgery (SDC) | payer MEDICARE ==
[~2019-09-10 07:34] MED LIST changes: -LACTATED RINGERS 1,000 ML IV SCH; +LIDOCAINE 1% (10MG/ML) FOR IV START INTRADERMA PRN
[2019-09-10] MEDS: LACTATED RINGERS 1,000 ML IV SCH ×2 (08:14→08:27)
[2019-09-10] MEDS ORDERED: PROPOFOL 10 MG/ML 20 ML VIAL IV ONE (08:32)
--- NOTE | 2019-09-10 08:41 | P.PCN ---
Date of Procedure: 09/10/19 Procedure(s) Performed: BRIEF HISTORY: Patient is a 74-year-old, pleasant, white male scheduled for an upper endoscopy as a part of evaluation of intermittent dysphagia for the last 6 months duration. Cardiac workup that was negative. She was started on omeprazole 20 mg twice daily with minimal help. His and scheduled for an upper endoscopy to evaluate further.. PROCEDURE PERFORMED: Esophagogastroduodenoscopy with biopsy. PREOPERATIVE DIAGNOSIS: Atypical chest pain of 6 months duration. IV sedation per anesthesia. PROCEDURE: After informed consent was obtained, the patient was brought into the endoscopy unit. IV sedation was administered by Anesthesia under continuous monitoring. Initially the Olympus GIF-140 video endoscope was inserted into the mouth. Esophagus intubated without any difficulty. It was gradually advanced into the stomach and duodenum and carefully examined. The bulb and the second part of the duodenum appeared normal. The scope at this time was withdrawn to the stomach, adequately insufflated with air, and upon careful examination, mucosa of the antrum, had mild gastritis and biopsies were done from this area. The body, cardia and the fundus appeared normal. The scope was then withdrawn into the esophagus. The GE junction was located at 39 cm from the incisors. The esophagus appeared normal. There were no erosions or ulcerations seen and the patient tolerated the procedure well. IMPRESSION: 1. Normal-appearing esophagus with no evidence of esophagitis or esophageal stricture. 2. Mild antral gastritis. RECOMMENDATIONS: The findings of this examination were discussed with the patient as well as her family. He was advised to follow with the biopsy results. In the meantime he will continue with omeprazole 20 mg twice daily and follow antireflux measures. If he continues remains symptomatic despite aggressive acid suppressive therapy, he can be a candidate for a 24-hour pH study a repeat study off the medications to see if he has any GERD causing the symptoms.
[2019-09-10 10:10] VITALS: BP 114/61; PULSE 78; RESP 16; TEMP 96.9; BMI 29.5
[2019-09-10 14:06] LABS: Glucose,Whole Blood 116 mg/dL (75-99)
== END 2019-09-10 09:15 | disposition home or self-care (01) ==
LOC: ORWHC2ENDO 07:34
PROVIDERS: ATTEND Internal Medicine Gastroenterology
DX: K29.50 Unspecified chronic gastritis without bleeding (principal); K21.9 Gastro-esophageal reflux disease without esophagitis; I25.10 Atherosclerotic heart disease of native coronary artery without angina pectoris; I10 Essential (primary) hypertension; E78.5 Hyperlipidemia, unspecified; E11.42 Type 2 diabetes mellitus with diabetic polyneuropathy; Z79.899 Other long term (current) drug therapy; Z79.4 Long term (current) use of insulin; Z79.891 Long term (current) use of opiate analgesic; Z79.82 Long term (current) use of aspirin; Z95.5 Presence of coronary angioplasty implant and graft
CPT/HCPCS: 88305; 43239; J2704

== ENCOUNTER → 2019-12-15 | Outpatient (CLI) | payer MEDICARE ==
[2019-12-15 16:46] LABS: Hemoglobin A1C 7.5 % (4.0-6.0)
[2019-12-15 17:22] LABS: Urine Creatinine 110.1 mg/dL
[2019-12-15 18:04] LABS: African American GFR (CKD) 75.7 (60.0-200.0); Albumin 4.6 g/dL (3.80-4.90); Albumin/Globulin Ratio 1.92 (1.60-3.17); Anion Gap 12.4 mmol/L (4.00-12.00); BUN/Creat Ratio 21.82 Ratio (12.00-20.00); Calcium 9.2 mg/dL (8.7-10.3); Carbon Dioxide 23.6 mmol/L (21.6-31.8); Chol/HDL Ratio 3.71; Globulin 2.4 g/dL (1.6-3.3); LDL Cholesterol,Calculated 67.2 mg/dL (0.0-131.0); Non-African American GFR(CKD) 65.3 (60.0-200.0); Potassium 5.1 mmol/L (3.5-5.5); Total Bilirubin 0.4 mg/dL (0.2-1.2); VLDL Calculation 35.8 mg/dL (5.00-40.00)
== END | disposition home or self-care (01) ==
LOC: LABWHC1 07:37
PROVIDERS: ATTEND Internal Medicine Endocrinology, Diabetes & Metabolism
DX: E11.65 Type 2 diabetes mellitus with hyperglycemia (principal); E55.9 Vitamin D deficiency, unspecified; E53.8 Deficiency of other specified B group vitamins
CPT/HCPCS: 36415; 80053; 80061; 82043; 82306; 82570; 82607; 83036; 84443

== ENCOUNTER → 2019-12-24 | Day surgery (SDC) | payer MEDICARE ==
[2019-12-23 13:35] VITALS: BMI 29.3
[~2019-12-24] MED LIST changes: +ALPRAZolam 0.25 MG TAB PO PRN; +ALPRAZolam 0.5 MG TAB PO PRN; +ASPIRIN 325 MG TAB PO STA; +ASPIRIN 81 MG PO SCH; +ATORVASTATIN 40 MG TAB PO SCH; +ATORVASTATIN 80 MG TAB PO STA; +ATROPINE SULFATE 0.1 MG/ML 10ML SYRINGE IV PRN; +HEPARIN SODIUM 1,000 UN/ML (10ML VL) ONE; +HYDROcodone/APAP 7.5-325MG 1 EACH TAB PO PRN; +IOPAMIDOL-370 100ML BTL INJ ONE; +IOPAMIDOL-370 125ML BTL INJ ONE; +ISOSORBIDE MONONITRATE ER 30 MG TAB.ER.24H PO SCH; -LIDOCAINE 1% (10MG/ML) FOR IV START INTRADERMA PRN; +LIDOCAINE 1% INJ 10MG/ML (20 ML MDV) ONE; +LIDOCAINE 1% INJ 10MG/ML (20 ML MDV) SQ ONE; +MAG HYDROX/AL HYDROX/SIMETH 30 ML CUP PO PRN; +MIDAZOLAM 2 MG/2 ML VIAL IVP ONE; +NITROGLYCERIN 1000MCG/10ML SYRINGE INTRACORON ONE; +NITROGLYCERIN SL TABS 0.4 MG TAB SUBLINGUAL PRN; +NON FORMULARY DRUG (Insulin Glargine 100 UNIT/ML Vial) SQ SCH; +PANTOPRAZOLE 40 MG TABLET PO SCH; +PRASUGREL 10 MG TAB ONE; +PRASUGREL 10 MG TAB PO ONE; +PRASUGREL 10 MG TAB PO SCH; +PREGABALIN 75 MG CAP PO SCH; +RX INFO: IV CONTRAST WAS GIVEN 1 EACH MISC MISCELLANE PRN; +SODIUM CHLORIDE 0.9% 1,000 ML IV SCH; +SODIUM CHLORIDE 0.9% 1,000 ML in EMPTY BAG 1 BAG IV ONE; +VERAPAMIL 2.5 MG/ML 2 ML AMP ONE; +VERAPAMIL SYRINGE (5 MG/10 ML) INTRAARTER ONE; +ZOLPIDEM 5 MG TAB PO PRN; +amLODIPine 10 MG TAB PO SCH; +fentaNYL (PF) 50 MCG/ML 2 ML AMP IVP ONE; +fentaNYL (PF) 50 MCG/ML 2 ML AMP ONE; +glipiZIDE 10 MG TAB PO SCH; +lisinopriL 20 MG TAB PO SCH
[2019-12-24 06:51] LABS: Glucose,Whole Blood 169 mg/dL (75-99)
[2019-12-24 07:02] VITALS: RESP 18; TEMP 98.1
[2019-12-24 07:08] LABS: Basophils # (A) 0.1 k/uL (0-0.2); Basophils % (A) 1 %; Eosinophils # (A) 1.2 k/uL (0-0.7); Eosinophils % (A) 17 %; HCT 37.5 % (39.0-53.0); HGB 12.7 gm/dL (13.0-17.5); Lymphocytes # (A) 2.1 k/uL (1.0-4.8); Lymphocytes % (A) 29 %; MCH 29.2 pg (25.0-35.0); MCHC 33.8 g/dL (31.0-37.0); MCV 86.3 fL (80.0-100.0); Mean Platelet Volume 7.2; Monocytes # (A) 0.5 k/uL (0-1.0); Monocytes % (A) 7 %; Neutrophils # (A) 3.2 k/uL (1.3-7.7); Neutrophils % (A) 43 %; Platelet Count 251 k/uL (150-450); RBC 4.34 m/uL (4.30-5.90); RDW 14.8 % (11.5-15.5); WBC 7.4 k/uL (3.8-10.6)
[2019-12-24] MEDS: HEPARIN SODIUM 1,000 UN/ML (10ML VL) IV ONE ×2 (07:49→07:55)
--- NOTE | 2019-12-24 09:45 | CC ---
CARDIAC CATHETERIZATION REPORT Mr Benjamin is a 74-year-old male with known history of coronary artery disease, hypertension, hyperlipidemia, diabetes mellitus, who presented to the office with symptoms of progressive angina pectoris, which is new for him. In view of that, recommendation regarding cardiac catheterization. The procedures, risks, and complication were discussed with the patient who is in full understanding and agreement. PROCEDURE: Patient was brought to [facility] in a fasting semi-sedated state after receiving fentanyl and Benadryl and achieving moderate conscious sedated state. Using Xylocaine anesthesia and Seldinger technique, a 6-[place] sheath was introduced in the right radial artery. Selective right and left coronary angiography performed using 5-[place] 4 bend right Magi and 5-[place] 3.5 bend left Magi catheter. Multiple views of the coronary artery including hemiaxial views obtained, the right Magi catheter was used to cross the aortic valve and the left ventricular end-diastolic pressure was calculated. following that images. After the catheter were removed, images were reviewed. Of note, the patient received 5000 units of intravenous heparin as well as intra-arterial verapamil. FINDINGS: FLUOROSCOPY: There was significant calcification involving all the coronary arteries. LEFT MAIN: This is a large-sized vessel, bifurcating into left circumflex, left anterior descending artery. Left main coronary artery has no evidence of high-grade stenosis. LEFT ANTERIOR DESCENDING ARTERY: This is a large-sized vessel, reaching toward the apex with a wraparound apex segment giving rise to 2 diagonal branch. The first one is large in caliber. In the proximal LAD, there is 20% plaque. In the mid LAD after the takeoff of the first diagonal branch, there is a 99% stenosis. The rest of the vessel has intimal disease without any evidence of high-grade stenosis. LEFT CIRCUMFLEX: This is a nondominant large size vessel, giving rise to 2 obtuse marginal branch. The stented segment in the first obtuse marginal is painted Prior to the stented segment, there is about a 50% plaque. There is also a plaque in the second obtuse marginal branch of 50% to 60% severity that has not progressed compared to 2018. RIGHT CORONARY ARTERY: This is a large dominant vessel bifurcating distally PDA and posterolateral segment branches. The right coronary artery is a severely tortuous in the proximal segment, has a 50% plaque in the proximal segment and another area of 50% in the mid segment. The rest of the vessel has intimal disease without any evidence of high-grade stenosis. LEFT VENTRICULOGRAM: Left ventriculogram is not performed. HEMODYNAMICS: There was no gradient across the aortic valve. The left ventricular end- diastolic pressure was 8-10 mmHg. CONCLUSION: 1. Calcified coronary artery. 2. Critical stenosis in the mid LAD. 3. Moderate disease in the right coronary artery and left circumflex with no progression compared to 2018. RECOMMENDATION: In view of finding anatomy, I recommend proceeding with angioplasty and stenting of the LAD. The procedures, risks, and complication were discussed with the patient who is in full understanding and agreement. MMODL / IJN: [id number] /
--- NOTE | 2019-12-24 11:00 | PTCA ---
PERCUTANEOUSTRANS CORORONARY ANGIOGRAPHY ANGIOPLASTY PROCEDURE NOTE: Mr. Benjamin is a 74-year-old male with known history of coronary artery disease, status post stenting in 2013 who presented with symptoms of angina pectoris, underwent cardiac catheterization, was found to have critical stenosis involving the mid LAD. In view of that, recommendation regarding angioplasty and stenting, the procedures, risks, and complication were discussed with the patient who is in full understanding and agreement. PROCEDURE: A 6-Citizen Of [place] EBU 3.75 guiding catheter introduced into the system after cannulating the left main, a 0.014 balanced medium weight J-wire was advanced across the lesion, positioned at the diagonal branch and a second 0.14 balanced medium weight J- wire was advanced and positioned distal LAD in a candi fashion. Subsequently a 2.5 x 12 mm Emerge NC balloon was advanced and one inflation at 8 atmospheres was done. Following that, the balloon was removed and a 2.75 x 18 mm Xience Kaylee stent was deployed, post- dilated at 16 atmospheres and after the last inflation, after appropriate wait,. the balloon and the guidewire were withdrawn back in the guiding catheter. Images were obtained and repeated. Those images reveal stable successful stenting. At that point, the guiding catheter, the balloon and the guidewire were removed, the sheath was removed. Hemostasis was obtained with deployment of a TR band. There was no immediate complication. Patient is returned to his room in stable condition. Of note, the patient had chest discomfort and EKG changes with the inflation that resulted in procedure. He received an additional 3000 units of intravenous heparin and his ACT was followed, he also received an oral loading dose of Effient. RESULTS: Successful stenting of the mid LAD with reduction of stenosis from 99% to 0%. RECOMMENDATION: Patient will be continued on aspirin, Effient, beta blockers and statin. The importance of dual antiplatelet treatment were discussed with the patient and his family who are in full understanding and agreement. Duration of sedation is 44 minutes. MMODL / IJN: [id number] / CHUCK
[2019-12-24 16:11] VITALS: BP 132/64; PULSE 62
== END | disposition home or self-care (01) ==
LOC: CATHCVL 06:23
PROVIDERS: ATTEND Internal Medicine Interventional Cardiology
DX: I25.110 Atherosclerotic heart disease of native coronary artery with unstable angina pectoris (principal); I25.84 Coronary atherosclerosis due to calcified coronary lesion; I10 Essential (primary) hypertension; E78.00 Pure hypercholesterolemia, unspecified; E11.51 Type 2 diabetes mellitus with diabetic peripheral angiopathy without gangrene; Z95.5 Presence of coronary angioplasty implant and graft; E78.5 Hyperlipidemia, unspecified; Z82.49 Family history of ischemic heart disease and other diseases of the circulatory system; Z79.82 Long term (current) use of aspirin; Z79.899 Other long term (current) drug therapy
CPT/HCPCS: 93458; 85347; 85025; C9600; C1769 ×2; C1887 ×2; C1725; C1874; C1894; J2250; J2001; J3010; J1644; Q9967 ×2; 93454

== ENCOUNTER 2020-01-09 15:28 | Observation (INO) | payer MEDICARE ==
[2020-01-09 18:33] LABS: Basophils # (A) 0.1 k/uL (0-0.2); Basophils % (A) 1 %; Eosinophils # (A) 0.4 k/uL (0-0.7); Eosinophils % (A) 4 %; HCT 41.1 % (39.0-53.0); HGB 13.2 gm/dL (13.0-17.5); Lymphocytes # (A) 1.6 k/uL (1.0-4.8); Lymphocytes % (A) 19 %; MCH 27.4 pg (25.0-35.0); MCV 85.7 fL (80.0-100.0); Mean Platelet Volume 7.1; Monocytes # (A) 0.4 k/uL (0-1.0); Monocytes % (A) 5 %; Neutrophils # (A) 5.8 k/uL (1.3-7.7); Neutrophils % (A) 68 %; Platelet Count 309 k/uL (150-450); RDW 15.2 % (11.5-15.5); WBC 8.5 k/uL (3.8-10.6)
[2020-01-09 18:35] LABS: Appearance,Urine Clear (Clear); Bilirubin,Urine Negative (Negative); Blood,Urine Negative (Negative); Color,Urine Yellow; Glucose,Urine (UA) Negative (Negative); Ketones,Urine Negative (Negative); Leukocyte Esterase,Urine Negative (Negative); Nitrite,Urine Negative (Negative); Protein,Urine Negative (Negative); Specific Gravity,Urine 1.026 (1.001-1.035); Urobilinogen,Urine <2.0 mg/dL (<2.0)
[2020-01-09 18:43] LABS: Potassium 5.6 mmol/L (3.5-5.1)
[2020-01-09 18:44] LABS: Albumin 4.9 g/dL (3.5-5.0); Calcium 9.7 mg/dL (8.4-10.2); Total Bilirubin 0.4 mg/dL (0.2-1.3); Total Protein 8.2 g/dL (6.3-8.2)
[2020-01-09] MEDS ORDERED: SODIUM CHLORIDE 0.9% 1,000 ML IV ONE (19:20)
--- NOTE | 2020-01-09 19:23 | XR ---
EXAMINATION TYPE: XR chest 2V DATE OF EXAM: 01/09/2020 COMPARISON: NONE HISTORY: 07/20/2019 TECHNIQUE: 2 views FINDINGS: There is no heart failure nor confluent pneumonic infiltrate. Costophrenic angles are clear . IMPRESSION: No active cardiopulmonary disease. No change.
--- NOTE | 2020-01-09 20:27 | CT ---
EXAMINATION TYPE: CT abdomen pelvis w con DATE OF EXAM: 01/09/2020 COMPARISON: 08/28/2017 HISTORY: Post op fever CT DLP: 1534.6 mGycm Automated exposure control for dose reduction was used. CONTRAST: Performed with IV Contrast, patient injected with 80 mL of Isovue 300. There is some patchy atelectasis at the lung bases. Heart size is normal. There is no pericardial eff usion. There is coronary artery calcification. Liver shows no focal defect. Gallbladder is slightly c ontracted. Spleen is intact. Stomach is intact. There is no evidence of pancreatic mass. There is no adrenal mass. Kidneys show satisfactory contrast opacification. There is no hydronephrosi s. Delayed images show normal renal excretion. Ureters are not dilated. Bladder distends smoothly. Th ere is no inguinal hernia. There is no free fluid in the pelvis. There are sigmoid mild diverticula w ithout evidence of diverticulitis. Appendix is posterior and appears normal. There is no mesenteric e wendie. There is no ascites or free air. There is no evidence of a bowel obstruction. There is metal ar tifact from posterior multilevel lumbar spine fusion surgery. Lumbar spine is intact. There is no com pression fracture. The bony pelvis is intact. Hip joints are intact. IMPRESSION: There is some patchy scarring and atelectasis at the lung bases unchanged. No acute abnormality withi n the abdomen pelvis. Normal appendix.
[2020-01-09] MEDS ORDERED: MAG HYDROX/AL HYDROX/SIMETH 30 ML, HYOSCYAMINE ELIXIR 10 ML, LIDOCAINE VISCOUS 2% 10 ML PO STA ×3 (21:29)
[2020-01-09 21:43] LABS: Calcium 9.1 mg/dL (8.4-10.2)
[2020-01-09] MEDS ORDERED: NALOXONE 0.4 MG/ML 1 ML VIAL IV PRN (22:26)
[2020-01-09] MEDS ORDERED: ACETAMINOPHEN TAB 325 MG TAB PO PRN (22:26)
--- NOTE | 2020-01-09 22:42 | ED ---
General Adult HPI - General Chief complaint: Abdominal Pain Stated complaint: Post Op Fever Time Seen by Provider: 01/09/20 17:42 Source: patient, RN notes reviewed, old records reviewed Mode of arrival: ambulatory Limitations: no limitations - History of Present Illness Initial comments: 74-year-old male patient presents to ED for chief complaint of abdominal pain. Patient reports that the last 2 days having periumbilical and epigastric abdominal pain nausea and some diarrhea. Patient reports subjective fevers. Patient did have a stent placed 2 weeks ago. Denies a chest pain shortness of breath. Denies any other acute complaints. Systemic: Pt denies fatigue, fever/chills, rash. Pt denies weakness, night sweats, weight loss. Neuro: Pt denies headache, visual disturbances, syncope or pre-syncope. HEENT: Pt denies ocular discharge or irritation, otalgia, rhinorrhea, pharyngitis or notable lymphadenopathy. Cardiopulmonary: Pt denies chest pain, SOB, heart palpitations, dyspnea on exertion. Abdominal/GI: Pt denies abdominal pain, n/v/d. : Pt denies dysuria, burning w/ urination, frequency/urgency. Denies new onset urinary or bowel incontinence. MSK: Pt denies myalgia, loss of strength or function in extremities. Neuro: Pt denies new onset weakness, paresthesias. - Related Data Home Medications Medication Instructions Recorded Confirmed Quinapril HCl 40 mg PO QAM 01/17/14 01/09/20 glipiZIDE [Glucotrol] 20 mg PO BID 01/17/14 01/09/20 amLODIPine BESYLATE [Norvasc] 10 mg PO QAM 04/19/14 01/09/20 Atorvastatin [Lipitor] 40 mg PO DAILY 08/08/14 01/09/20 Pregabalin [Lyrica] 150 mg PO BID 06/21/16 01/09/20 Omeprazole 20 mg PO BID PRN 08/28/17 01/09/20 HYDROcodone/APAP 7.5-325MG [[place] 1 tab PO QID PRN 10/16/17 01/09/20 7.5-325] Nitroglycerin Sl Tabs [Nitrostat] 0.4 mg SUBLINGUAL Q5M PRN 03/02/18 01/09/20 Aspirin EC [Ecotrin Low Dose] 81 mg PO DAILY 02/12/19 01/09/20 Cholecalciferol [Vitamin D3 (25 1,000 unit PO DAILY 02/12/19 01/09/20 Mcg = 1000 Iu)] Cyanocobalamin (Vitamin B-12) 5,000 mcg PO AC-BRKFST 02/12/19 01/09/20 [Vitamin B-12] INSULIN LISPRO (humaLOG) [humaLOG] See Protocol SQ AC-TID PRN 07/20/19 01/09/20 Insulin Glargine [Lantus] 30 - 35 unit SQ HS 07/20/19 01/09/20 Isosorbide Mononitrate [Isosorbide 30 mg PO DAILY 12/23/19 01/09/20 Mononitrate ER] Famotidine 20 mg PO BID 01/09/20 01/09/20 INSULIN LISPRO (humaLOG) [humaLOG] 9 units SQ AC-TID 01/09/20 01/09/20 Tamsulosin HCl [Flomax] 0.4 mg PO DAILY 01/09/20 01/09/20 Previous Rx's Medication Instructions Recorded metFORMIN HCL 1,000 mg PO BID #0 10/18/17 Prasugrel [Effient] 10 mg PO DAILY #30 tablet 12/24/19 Allergies Allergy/AdvReac Type Severity Reaction Status Date / Time No Known Allergies Allergy Verified 01/09/20 21:16 Review of Systems ROS Statement: Those systems with pertinent positive or pertinent negative responses have been documented in the HPI. ROS Other: All systems not noted in ROS Statement are negative. Past Medical History Past Medical History: Asthma, Coronary Artery Disease (CAD), Chest Pain / Angina, Diabetes Mellitus, GERD/Reflux, Hearing Disorder / Deafness, Hyperlipidemia, Hypertension Additional Past Medical History / Comment(s): Hx chronic back pain, chronic pain syndrome, constipation, NIDDM type II, neuropathy bilateral feet, ONONDAGA/uses hearing aids bilaterally. History of Any Multi-Drug Resistant Organisms: None Reported Past Surgical History: Back Surgery, Heart Catheterization With Stent, Orthopedic Surgery Additional Past Surgical History / Comment(s): trigger 2nd digit left hand 12-13-19, trigger finger release rt hand,Cervical fusion, back lami/injections, carpal tunnel surgery, colonoscopy/benign polypectomy. stent placed two weeks ago Past Anesthesia/Blood Transfusion Reactions: No Reported Reaction Date of Last Stent Placement:: 1 stent Past Psychological History: No Psychological Hx Reported Smoking Status: Never smoker Past Alcohol Use History: None Reported Past Drug Use History: None Reported - Past Family History Father Family Medical History: Myocardial Infarction ([place]) Additional Family Medical History / Comment(s): Passed at age 72. Mother Family Medical History: Myocardial Infarction ([place]) Additional Family Medical History / Comment(s): Passed at age 77. Brother(s) Family Medical History: Myocardial Infarction ([place]) Additional Family Medical History / Comment(s): 3 brothers passed from [place] in 50's. Sister(s) Family Medical History: Myocardial Infarction ([place]) General Exam - General Exam Comments Initial Comments: Constitutional: NAD, AOX3, Pt has pleasant affect. HEENT: NC/AT, trachea midline, neck supple, no lymphadenopathy. External ears appear normal, without discharge. Mucous membranes moist. Eyes PERRLA, EOM intact. There is no scleral icterus. No pallor noted. Cardiopulmonary: RRR, no murmurs, rubs or gallops, no JVD noted. Lungs CTAB in anterior and posterior rolon. No peripheral edema. Abdominal exam: Abdomen soft and non-distended. Abdomen mildly tender to palpation in periumbilical or epigastric region. Bowel sounds active in LLQ. No hepatosplenomegaly. No ecchymosis Neuro: CN II-XII grossly intact. No nuchal rigidity. MSK: Full active ROM in upper and lower extremities, 5/5 stregnth. Limitations: no limitations Course Vital Signs 01/09/20 01/09/20 01/09/20 16:47 18:24 19:30 Temperature 97.3 F L Pulse Rate 81 70 76 Respiratory 18 18 18 Rate Blood Pressure 136/71 131/71 144/75 O2 Sat by Pulse 97 97 96 Oximetry 01/09/20 21:20 Temperature 98.2 F Pulse Rate 69 Respiratory 18 Rate Blood Pressure 130/55 O2 Sat by Pulse 97 Oximetry Medical Decision Making - Medical Decision Making 74-year-old male patient presents to ED for chief complaint of abdominal pain. Patient reports that the last 2 days having periumbilical and epigastric abdominal pain nausea and some diarrhea. Patient reports subjective fevers. Patient did have a stent placed 2 weeks ago. Denies a chest pain shortness of breath. Denies any other acute complaints. Patient vital signs are stable, afebrile. Physical exam displayed tenderness the periumbilical epigastric region. Guarding or rigidity. Blood pressure investigations to reveal mild agrees kidney function mildly elevated lactic acid. CT abdomen and pelvis displayed some patchy scarring atelectasis lung base unchanged. No acute abnormalities in the abdomen and the pelvis. Chest x-ray negative for acute process. EKG is nonischemic. If you lactic acid continued elevated at 3.0. Patient will be admitted for further evaluation and rehydration. Patient does report significant improvement in his discomfort after a GI cocktail. Case discussed with Dr. Chan. Accepting physician Dr. Garcia. - Lab Data Result diagrams: 01/09/20 18:01 01/09/20 21:19 Lab Results 01/09/20 01/09/20 01/09/20 Range/Units 18:01 18:01 18:01 WBC 8.5 (3.8-10.6) k/uL RBC 4.80 (4.30-5.90) m/uL Hgb 13.2 (13.0-17.5) gm/dL Hct 41.1 (39.0-53.0) % MCV 85.7 (80.0-100.0) fL MCH 27.4 (25.0-35.0) pg MCHC 32.0 (31.0-37.0) g/dL RDW 15.2 (11.5-15.5) % Plt Count 309 (150-450) k/uL Neutrophils % 68 % Lymphocytes % 19 % Monocytes % 5 % Eosinophils % 4 % Basophils % 1 % Neutrophils # 5.8 (1.3-7.7) k/uL Lymphocytes # 1.6 (1.0-4.8) k/uL Monocytes # 0.4 (0-1.0) k/uL Eosinophils # 0.4 (0-0.7) k/uL Basophils # 0.1 (0-0.2) k/uL Sodium 137 (137-145) mmol/L Potassium 5.6 H (3.5-5.1) mmol/L Chloride 104 (98-107) mmol/L Carbon Dioxide 19 L (22-30) mmol/L Anion Gap 14 mmol/L BUN 27 H (9-20) mg/dL Creatinine 1.57 H (0.66-1.25) mg/dL Est GFR (CKD-EPI)AfAm 49 (>60 ml/min/1.73 sqM) Est GFR (CKD-EPI)NonAf 43 (>60 ml/min/1.73 sqM) Glucose 160 H (74-99) mg/dL Lactic Ac Sepsis Rflx Plasma Lactic Acid Hossein (0.7-2.0) mmol/L Calcium 9.7 (8.4-10.2) mg/dL Total Bilirubin 0.4 (0.2-1.3) mg/dL AST 26 (17-59) U/L ALT 31 (4-49) U/L Alkaline Phosphatase 97 (38-126) U/L Troponin I (0.000-0.034) ng/mL Total Protein 8.2 (6.3-8.2) g/dL Albumin 4.9 (3.5-5.0) g/dL Lipase 59 (23-300) U/L Urine Color Yellow Urine Appearance Clear (Clear) Urine pH 6.0 (5.0-8.0) Ur Specific [place] 1.026 (1.001-1.035) Urine Protein Negative (Negative) Urine Glucose (UA) Negative (Negative) Urine Ketones Negative (Negative) Urine Blood Negative (Negative) Urine Nitrite Negative (Negative) Urine Bilirubin Negative (Negative) Urine Urobilinogen <2.0 (<2.0) mg/dL Ur Leukocyte Esterase Negative (Negative) Stool Occult Blood (Negative) Coronavirus (PCR) (Not Detectd) 01/09/20 01/09/20 01/09/20 Range/Units 18:01 18:01 18:24 WBC (3.8-10.6) k/uL RBC (4.30-5.90) m/uL Hgb (13.0-17.5) gm/dL Hct (39.0-53.0) % MCV (80.0-100.0) fL MCH (25.0-35.0) pg MCHC (31.0-37.0) g/dL RDW (11.5-15.5) % Plt Count (150-450) k/uL Neutrophils % % Lymphocytes % % Monocytes % % Eosinophils % % Basophils % % Neutrophils # (1.3-7.7) k/uL Lymphocytes # (1.0-4.8) k/uL Monocytes # (0-1.0) k/uL Eosinophils # (0-0.7) k/uL Basophils # (0-0.2) k/uL Sodium (137-145) mmol/L Potassium (3.5-5.1) mmol/L Chloride (98-107) mmol/L Carbon Dioxide (22-30) mmol/L Anion Gap mmol/L BUN (9-20) mg/dL Creatinine (0.66-1.25) mg/dL Est GFR (CKD-EPI)AfAm (>60 ml/min/1.73 sqM) Est GFR (CKD-EPI)NonAf (>60 ml/min/1.73 sqM) Glucose (74-99) mg/dL Lactic Ac Sepsis Rflx Plasma Lactic Acid Hossein 3.0 H* (0.7-2.0) mmol/L Calcium (8.4-10.2) mg/dL Total Bilirubin (0.2-1.3) mg/dL AST (17-59) U/L ALT (4-49) U/L Alkaline Phosphatase (38-126) U/L Troponin I <0.012 (0.000-0.034) ng/mL Total Protein (6.3-8.2) g/dL Albumin (3.5-5.0) g/dL Lipase (23-300) U/L Urine Color Urine Appearance (Clear) Urine pH (5.0-8.0) Ur Specific [place] (1.001-1.035) Urine Protein (Negative) Urine Glucose (UA) (Negative) Urine Ketones (Negative) Urine Blood (Negative) Urine Nitrite (Negative) Urine Bilirubin (Negative) Urine Urobilinogen (<2.0) mg/dL Ur Leukocyte Esterase (Negative) Stool Occult Blood (Negative) Coronavirus (PCR) Not Detected (Not Detectd) 01/09/20 01/09/20 01/09/20 Range/Units 19:20 21:19 21:19 WBC (3.8-10.6) k/uL RBC (4.30-5.90) m/uL Hgb (13.0-17.5) gm/dL Hct (39.0-53.0) % MCV (80.0-100.0) fL MCH (25.0-35.0) pg MCHC (31.0-37.0) g/dL RDW (11.5-15.5) % Plt Count (150-450) k/uL Neutrophils % % Lymphocytes % % Monocytes % % Eosinophils % % Basophils % % Neutrophils # (1.3-7.7) k/uL Lymphocytes # (1.0-4.8) k/uL Monocytes # (0-1.0) k/uL Eosinophils # (0-0.7) k/uL Basophils # (0-0.2) k/uL Sodium 137 (137-145) mmol/L Potassium 5.0 (3.5-5.1) mmol/L Chloride 106 (98-107) mmol/L Carbon Dioxide 19 L (22-30) mmol/L Anion Gap 12 mmol/L BUN 26 H (9-20) mg/dL Creatinine 1.38 H (0.66-1.25) mg/dL Est GFR (CKD-EPI)AfAm 58 (>60 ml/min/1.73 sqM) Est GFR (CKD-EPI)NonAf 50 (>60 ml/min/1.73 sqM) Glucose 119 H (74-99) mg/dL Lactic Ac Sepsis Rflx Y Plasma Lactic Acid Hossein (0.7-2.0) mmol/L Calcium 9.1 (8.4-10.2) mg/dL Total Bilirubin (0.2-1.3) mg/dL AST (17-59) U/L ALT (4-49) U/L Alkaline Phosphatase (38-126) U/L Troponin I (0.000-0.034) ng/mL Total Protein (6.3-8.2) g/dL Albumin (3.5-5.0) g/dL Lipase (23-300) U/L Urine Color Urine Appearance (Clear) Urine pH (5.0-8.0) Ur Specific [place] (1.001-1.035) Urine Protein (Negative) Urine Glucose (UA) (Negative) Urine Ketones (Negative) Urine Blood (Negative) Urine Nitrite (Negative) Urine Bilirubin (Negative) Urine Urobilinogen (<2.0) mg/dL Ur Leukocyte Esterase (Negative) Stool Occult Blood Negative (Negative) Coronavirus (PCR) (Not Detectd) 01/09/20 Range/Units 21:19 WBC (3.8-10.6) k/uL RBC (4.30-5.90) m/uL Hgb (13.0-17.5) gm/dL Hct (39.0-53.0) % MCV (80.0-100.0) fL MCH (25.0-35.0) pg MCHC (31.0-37.0) g/dL RDW (11.5-15.5) % Plt Count (150-450) k/uL Neutrophils % % Lymphocytes % % Monocytes % % Eosinophils % % Basophils % % Neutrophils # (1.3-7.7) k/uL Lymphocytes # (1.0-4.8) k/uL Monocytes # (0-1.0) k/uL Eosinophils # (0-0.7) k/uL Basophils # (0-0.2) k/uL Sodium (137-145) mmol/L Potassium (3.5-5.1) mmol/L Chloride (98-107) mmol/L Carbon Dioxide (22-30) mmol/L Anion Gap mmol/L BUN (9-20) mg/dL Creatinine (0.66-1.25) mg/dL Est GFR (CKD-EPI)AfAm (>60 ml/min/1.73 sqM) Est GFR (CKD-EPI)NonAf (>60 ml/min/1.73 sqM) Glucose (74-99) mg/dL Lactic Ac Sepsis Rflx Plasma Lactic Acid Hossein 3.0 H* (0.7-2.0) mmol/L Calcium (8.4-10.2) mg/dL Total Bilirubin (0.2-1.3) mg/dL AST (17-59) U/L ALT (4-49) U/L Alkaline Phosphatase (38-126) U/L Troponin I (0.000-0.034) ng/mL Total Protein (6.3-8.2) g/dL Albumin (3.5-5.0) g/dL Lipase (23-300) U/L Urine Color Urine Appearance (Clear) Urine pH (5.0-8.0) Ur Specific [place] (1.001-1.035) Urine Protein (Negative) Urine Glucose (UA) (Negative) Urine Ketones (Negative) Urine Blood (Negative) Urine Nitrite (Negative) Urine Bilirubin (Negative) Urine Urobilinogen (<2.0) mg/dL Ur Leukocyte Esterase (Negative) Stool Occult Blood (Negative) Coronavirus (PCR) (Not Detectd) - EKG Data -: EKG Interpreted by Me (and Dr. Chan ) EKG Comments: ventricular rate 69, [place] interval 162, QRS 82, QT/QTc 384/411. Normal sinus rhythm, normal EKG, no concern for acute ischemia at this time. Disposition Clinical Impression: Abdominal pain Disposition: ADMITTED IP TO THIS HOSP Is patient prescribed a controlled substance at d/c from ED?: No Referrals: Elayne Singer MD [Primary Care Provider] - 1-2 days
[2020-01-09] MEDS: SODIUM CHLORIDE 0.9% 1,000 ML IV SCH (22:46)
--- NOTE | 2020-01-10 00:46 | P.HPIM ---
History of Present Illness H&P Date: 01/10/20 The patient is a 74-year-old male with a PMH of coronary artery disease (recent stenting of the LAD on 12/25), type II DM, hypertension, and hyperlipidemia who presented to the emergency room with complaints of abdominal pain. The patient reports that his pain started 2 days ago, is cramping-like in nature, nonradiating, 3 out of 10 in intensity, waxing and waning, occurring for a few minutes at a time, improved with food, with associated loose 3-4 bowel movements daily over the past 2 days. Patient also reports feeling feverish with sweats during this time. He denied ever having such pain in the past. Denied chest discomfort, shortness of breath, cough, nausea, vomiting, palpitations, or dizziness. Denied use of NSAIDs at home. Patient reports that he has been eating his usual amount over the past few days. At time of interview, the patient noted that his pain had improved to 2 out of 10 after having received Maalox. Chest x-ray in the emergency room was unremarkable. CT abdomen and pelvis was also unremarkable. Laboratory evaluation was reviewed and was remarkable for a lactate of 3.0, potassium 5.6 and subsequently 5.0, CO2 19, BUN 27, and creatinine 1.57. UA was unremarkable and coronavirus testing was also negative. Stool occult blood was negative. Review of Systems Pertinent positives and negatives as discussed in HPI, a complete review of systems was performed and all other systems are negative. Past Medical History Past Medical History: Asthma, Coronary Artery Disease (CAD), Chest Pain / Angina, Diabetes Mellitus, GERD/Reflux, Hearing Disorder / Deafness, Hyperlipidemia, Hypertension Additional Past Medical History / Comment(s): Hx chronic back pain, chronic pain syndrome, constipation, NIDDM type II, neuropathy bilateral feet, [place]/uses hearing aids bilaterally. History of Any Multi-Drug Resistant Organisms: None Reported Past Surgical History: Back Surgery, Heart Catheterization With Stent, Orthopedic Surgery Additional Past Surgical History / Comment(s): trigger 2nd digit left hand 12-13-19, trigger finger release rt hand,Cervical fusion, back lami/injections, carpal tunnel surgery, colonoscopy/benign polypectomy. stent placed two weeks ago Past Anesthesia/Blood Transfusion Reactions: No Reported Reaction Date of Last Stent Placement:: 2019 x1 stent Past Psychological History: No Psychological Hx Reported Smoking Status: Never smoker Past Alcohol Use History: None Reported Past Drug Use History: None Reported - Past Family History Father Family Medical History: Myocardial Infarction ([place]) Additional Family Medical History / Comment(s): Passed at age 72. Mother Family Medical History: Myocardial Infarction ([place]) Additional Family Medical History / Comment(s): Passed at age 77. Brother(s) Family Medical History: Myocardial Infarction ([place]) Additional Family Medical History / Comment(s): 3 brothers passed from [place] in 50's. Sister(s) Family Medical History: Myocardial Infarction ([place]) Medications and Allergies Home Medications Medication Instructions Recorded Confirmed Type Quinapril HCl 40 mg PO QAM 01/17/14 01/09/20 History glipiZIDE [Glucotrol] 20 mg PO BID 01/17/14 01/09/20 History amLODIPine BESYLATE [Norvasc] 10 mg PO QAM 04/19/14 01/09/20 History Atorvastatin [Lipitor] 40 mg PO DAILY 08/08/14 01/09/20 History Pregabalin [Lyrica] 150 mg PO BID 06/21/16 01/09/20 History Omeprazole 20 mg PO BID PRN 08/28/17 01/09/20 History HYDROcodone/APAP 7.5-325MG [[place] 1 tab PO QID PRN 10/16/17 01/09/20 History 7.5-325] metFORMIN HCL 1,000 mg PO BID #0 10/18/17 01/09/20 Rx Nitroglycerin Sl Tabs [Nitrostat] 0.4 mg SUBLINGUAL Q5M PRN 03/02/18 01/09/20 History Aspirin EC [Ecotrin Low Dose] 81 mg PO DAILY 02/12/19 01/09/20 History Cholecalciferol [Vitamin D3 (25 1,000 unit PO DAILY 02/12/19 01/09/20 History Mcg = 1000 Iu)] Cyanocobalamin (Vitamin B-12) 5,000 mcg PO AC-BRKFST 02/12/19 01/09/20 History [Vitamin B-12] INSULIN LISPRO (humaLOG) [humaLOG] See Protocol SQ AC-TID PRN 07/20/19 01/09/20 History Insulin Glargine [Lantus] 30 - 35 unit SQ HS 07/20/19 01/09/20 History Isosorbide Mononitrate [Isosorbide 30 mg PO DAILY 12/23/19 01/09/20 History Mononitrate ER] Prasugrel [Effient] 10 mg PO DAILY #30 tablet 12/24/19 01/09/20 Rx Famotidine 20 mg PO BID 01/09/20 01/09/20 History INSULIN LISPRO (humaLOG) [humaLOG] 9 units SQ AC-TID 01/09/20 01/09/20 History Tamsulosin HCl [Flomax] 0.4 mg PO DAILY 01/09/20 01/09/20 History Allergies Allergy/AdvReac Type Severity Reaction Status Date / Time No Known Allergies Allergy Verified 01/09/20 21:16 Physical Exam Vitals: Vital Signs Temp Pulse Pulse Resp BP BP Pulse Ox 01/09/20 23:35 97.9 F 57 L 16 151/74 99 01/09/20 22:47 98.3 F 63 18 141/79 96 01/09/20 21:20 98.2 F 69 18 130/55 97 01/09/20 19:30 76 18 144/75 96 01/09/20 18:24 70 18 131/71 97 01/09/20 16:47 97.3 F L 81 18 136/71 97 Intake and Output 01/09/20 01/09/20 01/10/20 14:59 22:59 06:59 Other: # Voids 1 Weight 89.811 kg 89.811 kg General: non toxic, no distress, appears at stated age, overweight Derm: no unusual rashes/lesions no unusual ecchymoses, warm, dry Head: atraumatic, normocephalic, symmetric Eyes: EOMI, no lid lag, anicteric sclera, pupils equal round reactive to light ENT: Nose and ears atraumatic, no thrush, no pharyngeal erythema Neck: No thyromegaly, no cervical lymphadenopathy, trachea midline, supple Mouth: no lip lesion, mucus membranes moist Cardiovascular: S1S2 reg, no murmur, positive posterior tibial pulse bilateral, no edema, capillary refill less than 2 seconds Lungs: CTA bilateral, no rhonchi, no rales , no accessory muscle use Abdominal: soft, nontender to palpation, no guarding, no appreciable organomegaly, normal bowel sounds Ext: no gross muscle atrophy, muscle strength 5 out of 5 in all 4 extremities grossly, no contractures, Neuro: CN II-XI grossly intact, light touch intact all 4 extremities, finger to nose within normal limits, Psych: Alert, oriented, appropriate affect Results CBC & Chem 7: 01/09/20 18:01 01/09/20 21:19 Labs: Abnormal Lab Results - Last 24 Hours (Table) 01/09/20 01/09/20 01/09/20 Range/Units 18:01 18:01 21:19 Potassium 5.6 H (3.5-5.1) mmol/L Carbon Dioxide 19 L 19 L (22-30) mmol/L BUN 27 H 26 H (9-20) mg/dL Creatinine 1.57 H 1.38 H (0.66-1.25) mg/dL Glucose 160 H 119 H (74-99) mg/dL Plasma Lactic Acid Hossein 3.0 H* (0.7-2.0) mmol/L 01/09/20 Range/Units 21:19 Potassium (3.5-5.1) mmol/L Carbon Dioxide (22-30) mmol/L BUN (9-20) mg/dL Creatinine (0.66-1.25) mg/dL Glucose (74-99) mg/dL Plasma Lactic Acid Hossein 3.0 H* (0.7-2.0) mmol/L Thrombosis Risk Factor Assmnt - Choose All That Apply Any of the Below Risk Factors Present?: No Other Risk Factors: No Other congenital or acquired thrombophilia - If yes, enter type in comment: No Thrombosis Risk Factor Assessment Level: Very Low Risk Assessment and Plan Plan: Abdominal pain, gastritis versus viral infection in setting of diarrhea and subjective fever -Conservative management with IV fluids -Clear liquid diet for now -Protonix Lactic acidosis, resolved Hyperkalemia, resolved Acute kidney injury -Continue with IV fluids -Monitor BMP Chronic conditions: Type II DM, hypertension, hyperlipidemia -Check A1c -Continue with lispro insulin sliding scale blood glucose monitoring -Levemir 25 units daily at bedtime (takes 35 units at home) -Lispro 5 units before meals 3 times a day (takes 9 units before meals 3 times a day at home) -Continue with home antihypertensives DVT prophylaxis -Heparin subq The patient is admitted with an anticipated less than 2 midnight stay for evaluation of lactic acidosis CODE STATUS: Full Code Discussed with: Patient Anticipated discharge date: in am Anticipated discharge place: home A total of 35 minutes was spent on the care of this complex patient more than 50% of the time was spent in counseling and care coordination.
[2020-01-10] MEDS: SODIUM CHLORIDE 0.9% 1,000 ML IV SCH ×2 (05:52→12:26)
[2020-01-10 06:16] LABS: Glucose,Whole Blood 134 mg/dL (75-99)
[2020-01-10] MEDS ORDERED: PANTOPRAZOLE 40 MG TABLET PO SCH (07:30)
[2020-01-10] MEDS ORDERED: HEPARIN SODIUM,PORCINE 5,000 UNIT/ML 1 ML VIAL SQ SCH (08:00)
[2020-01-10] MEDS ORDERED: NON FORMULARY DRUG (Pregabalin [Lyrica] 150 MG Capsule) SQ SCH (08:00)
[2020-01-10] MEDS: INSULIN ASPART (NovoLOG) 100 UNIT/ML VIAL SQ SCH ×4 (08:21→12:25)
[2020-01-10 08:28] VITALS: BP 156/66; PULSE 69; RESP 14; TEMP 98.1
[2020-01-10 08:29] LABS: Calcium 9.5 mg/dL (8.4-10.2); Potassium 4.8 mmol/L (3.5-5.1)
[2020-01-10] MEDS ORDERED: TAMSULOSIN 0.4 MG CAP.ER.24H PO SCH (09:00)
[2020-01-10] MEDS ORDERED: PRASUGREL 10 MG TAB PO SCH (09:00)
[2020-01-10] MEDS ORDERED: ASPIRIN 81 MG PO SCH (09:00)
[2020-01-10 11:45] LABS: Glucose,Whole Blood 224 mg/dL (75-99)
[2020-01-10 14:59] LABS: Hemoglobin A1C 7.4 % (4.0-6.0)
--- NOTE | 2020-01-10 17:15 | P.DS ---
Providers Date of admission: 01/09/20 22:58 Expected date of discharge: 01/10/20 Attending physician: Дмитрий Garcia MD Consults: 01/09/20 22:26 Consult Physician Stat Consulting Provider: Stone Ferrell Consult Reason/Comments: abdominal pain, possible blood in stool Do you want consulting provider notified?: Yes, Notify in am Primary care physician: Elayne Singer - Discharge Diagnosis(es) (1) Abdominal pain The patient was admitted for abdominal pain and diarrhea lactic acidosis which is now resolved Status: Acute (2) Dehydration Dehydration with lactic acidosis secondary to diarrhea. The patient had some evidence of MARTINA information which has resolved Status: Acute Hospital Course: The patient is a 74-year-old male with history of diabetes type 2 presented with abdominal pain and diarrhea. In the emergency room patient marked lactic acidosis, acute kidney injury. The patient is hydrated he was initiated on a clear liquid diet his electrolytes normalized. The patient was seen by me he had no complaints is able to tolerate a regular diet he was deemed stable for discharge. On the day of discharge his BUN improved from 26-20, creatinine 1.38-1.05, lactic acidosis of 3.0 improved. The patient also had evidence of uncontrolled diabetes with A1c of 7.4 Patient Condition at Discharge: Good Plan - Discharge Summary Discharge Rx Participant: No New Discharge Prescriptions: No Action glipiZIDE [Glucotrol] 20 mg PO BID Quinapril HCl 40 mg PO QAM amLODIPine BESYLATE [Norvasc] 10 mg PO QAM Atorvastatin [Lipitor] 40 mg PO DAILY Pregabalin [Lyrica] 150 mg PO BID Omeprazole 20 mg PO BID PRN PRN Reason: GERDS HYDROcodone/APAP 7.5-325MG [[place] 7.5-325] 1 tab PO QID PRN PRN Reason: Pain metFORMIN HCL 1,000 mg PO BID #0 Nitroglycerin Sl Tabs [Nitrostat] 0.4 mg SUBLINGUAL Q5M PRN PRN Reason: Chest Pain Cholecalciferol [Vitamin D3 (25 Mcg = 1000 Iu)] 1,000 unit PO DAILY Aspirin EC [Ecotrin Low Dose] 81 mg PO DAILY Cyanocobalamin (Vitamin B-12) [Vitamin B-12] 5,000 mcg PO AC-BRKFST Insulin Glargine [Lantus] 30 - 35 unit SQ HS INSULIN LISPRO (humaLOG) [humaLOG] See Protocol SQ AC-TID PRN PRN Reason: HIGH BLOOD SUGAR Isosorbide Mononitrate [Isosorbide Mononitrate ER] 30 mg PO DAILY Prasugrel [Effient] 10 mg PO DAILY #30 tablet INSULIN LISPRO (humaLOG) [humaLOG] 9 units SQ AC-TID Famotidine 20 mg PO BID Tamsulosin HCl [Flomax] 0.4 mg PO DAILY Discharge Medication List Quinapril HCl 40 mg PO QAM 01/17/14 [History] glipiZIDE [Glucotrol] 20 mg PO BID 01/17/14 [History] amLODIPine BESYLATE [Norvasc] 10 mg PO QAM 04/19/14 [History] Atorvastatin [Lipitor] 40 mg PO DAILY 08/08/14 [History] Pregabalin [Lyrica] 150 mg PO BID 06/21/16 [History] Omeprazole 20 mg PO BID PRN 08/28/17 [History] HYDROcodone/APAP 7.5-325MG [[place] 7.5-325] 1 tab PO QID PRN 10/16/17 [History] metFORMIN HCL 1,000 mg PO BID #0 10/18/17 [Rx] Nitroglycerin Sl Tabs [Nitrostat] 0.4 mg SUBLINGUAL Q5M PRN 03/02/18 [History] Aspirin EC [Ecotrin Low Dose] 81 mg PO DAILY 02/12/19 [History] Cholecalciferol [Vitamin D3 (25 Mcg = 1000 Iu)] 1,000 unit PO DAILY 02/12/19 [History] Cyanocobalamin (Vitamin B-12) [Vitamin B-12] 5,000 mcg PO AC-BRKFST 02/12/19 [History] INSULIN LISPRO (humaLOG) [humaLOG] See Protocol SQ AC-TID PRN 07/20/19 [History] Insulin Glargine [Lantus] 30 - 35 unit SQ HS 07/20/19 [History] Isosorbide Mononitrate [Isosorbide Mononitrate ER] 30 mg PO DAILY 12/23/19 [History] Prasugrel [Effient] 10 mg PO DAILY #30 tablet 12/24/19 [Rx] Famotidine 20 mg PO BID 01/09/20 [History] INSULIN LISPRO (humaLOG) [humaLOG] 9 units SQ AC-TID 01/09/20 [History] Tamsulosin HCl [Flomax] 0.4 mg PO DAILY 01/09/20 [History] Follow up Appointment(s)/Referral(s): Elayne Singer MD [Primary Care Provider] - 1-2 days Patient Instructions/Handouts: Acute Abdominal Pain (DC) Activity/Diet/Wound Care/Special Instructions: activity as tolerated consistent carb diet Discharge Disposition: HOME SELF-CARE
[2020-01-10] MEDS ORDERED: INSULIN DETEMIR (LEVEMIR) 100 UNIT/ML SYR SQ SCH (21:00)
--- NOTE | 2020-01-10 21:38 | P.CONS ---
History of Present Illness - Reason for Consult Consult date: 01/10/20 abdominal pain Requesting physician: Дмитрий Garcia - Chief Complaint Abdominal pain - History of Present Illness 74-year-old male with multiple medical comorbidities including artery disease status post stent placement on12/25, diabetes mellitus, hyperlipidemia, hypertension and chronic constipation who presented to the hospital with complaints of abdominal pain. The patient reports 2 days of abdominal pain. Predominantly in the lower abdomen and described as crampy and the nature. He denies any nausea and vomiting associated with the pain. No change in bowel habits or diarrhea but the patient does suffer from chronic constipation at baseline. He reports frequently passing hardsmall stools. Previously he has undergone colonoscopy in 04/2014 significant for internal hemorrhoids and diverticulosis and EGD in 09/2019 significant formild gastritis. Computed to mography scan on presentation significant for diverticulosis. Stool tested negative for blood. WBC 8.5, hemoglobin 13.2, platelet count 309,000 with a total bilirubin of 0.4, alkaline phosphatase 97, AST 26 and ALT 31. Review of Systems REVIEW OF SYSTEMS: CONSTITUTIONAL: Denies any fevers, chills, weight change or fatigue. CARDIOVASCULAR: Denies any chest pain, palpitations high or low blood pressures RESPIRATORY: Denies any shortness of breath, hemoptysis or cough. GENITOURINARY: No dysuria or hematuria. MUSCULOSKELETAL: No weakness reported. SKIN: Denies any new rashes or lesions, jaundice or pallor. PSYCHIATRIC: Denies any depression or anxiety. NEUROLOGY: Denies headache, denies any new focal deficits. EARS/NOSE/THROAT: No recent hearing change, congestion, nasal discharge or sore throat. EYES: No pain in eyes, discharge or change in vision. GASTROINTESTINAL: As per HPI. Past Medical History Past Medical History: Asthma, Coronary Artery Disease (CAD), Chest Pain / Angin a, Diabetes Mellitus, GERD/Reflux, Hearing Disorder / Deafness, Hyperlipidemia, Hypertension Additional Past Medical History / Comment(s): Hx chronic back pain, chronic pain syndrome, constipation, NIDDM type II, neuropathy bilateral feet, [place]/uses hearing aids bilaterally. History of Any Multi-Drug Resistant Organisms: None Reported Past Surgical History: Back Surgery, Heart Catheterization With Stent, Orthopedic Surgery Additional Past Surgical History / Comment(s): trigger 2nd digit left hand 12-13-19, trigger finger release rt hand,Cervical fusion, back lami/injections, carpal tunnel surgery, colonoscopy/benign polypectomy. stent placed two weeks ago Past Anesthesia/Blood Transfusion Reactions: No Reported Reaction Date of Last Stent Placement:: 2019 stent Past Psychological History: No Psychological Hx Reported Smoking Status: Never smoker Past Alcohol Use History: None Reported Past Drug Use History: None Reported - Past Family History Father Family Medical History: Myocardial Infarction ([place]) Additional Family Medical History / Comment(s): Passed at age 72. Mother Family Medical History: Myocardial Infarction ([place]) Additional Family Medical History / Comment(s): Passed at age 77. Brother(s) Family Medical History: Myocardial Infarction ([place]) Additional Family Medical History / Comment(s): 3 brothers passed from [place] in 50's. Sister(s) Family Medical History: Myocardial Infarction ([place]) Medications and Allergies Home Medications Medication Instructions Recorded Confirmed Type Quinapril HCl 40 mg PO QAM 01/17/14 01/09/20 History glipiZIDE [Glucotrol] 20 mg PO BID 01/17/14 01/09/20 History amLODIPine BESYLATE [Norvasc] 10 mg PO QAM 04/19/14 01/09/20 History Atorvastatin [Lipitor] 40 mg PO DAILY 08/08/14 01/09/20 History Pregabalin [Lyrica] 150 mg PO BID 06/21/16 01/09/20 History Omeprazole 20 mg PO BID PRN 08/28/17 01/09/20 History HYDROcodone/APAP 7.5-325MG [[place] 1 tab PO QID PRN 10/16/17 01/09/20 History 7.5-325] metFORMIN HCL 1,000 mg PO BID #0 10/18/17 01/09/20 Rx Nitroglycerin Sl Tabs [Nitrostat] 0.4 mg SUBLINGUAL Q5M PRN 03/02/18 01/09/20 History Aspirin EC [Ecotrin Low Dose] 81 mg PO DAILY 02/12/19 01/09/20 History Cholecalciferol [Vitamin D3 (25 1,000 unit PO DAILY 02/12/19 01/09/20 History Mcg = 1000 Iu)] Cyanocobalamin (Vitamin B-12) 5,000 mcg PO AC-BRKFST 02/12/19 01/09/20 History [Vitamin B-12] INSULIN LISPRO (humaLOG) [humaLOG] See Protocol SQ AC-TID PRN 07/20/19 01/09/20 History Insulin Glargine [Lantus] 30 - 35 unit SQ HS 07/20/19 01/09/20 History Isosorbide Mononitrate [Isosorbide 30 mg PO DAILY 12/23/19 01/09/20 History Mononitrate ER] Prasugrel [Effient] 10 mg PO DAILY #30 tablet 12/24/19 01/09/20 Rx Famotidine 20 mg PO BID 01/09/20 01/09/20 History INSULIN LISPRO (humaLOG) [humaLOG] 9 units SQ AC-TID 01/09/20 01/09/20 History Tamsulosin HCl [Flomax] 0.4 mg PO DAILY 01/09/20 01/09/20 History Allergies Allergy/AdvReac Type Severity Reaction Status Date / Time No Known Allergies Allergy Verified 01/09/20 21:16 Physical Exam Vitals: Vital Signs Temp Pulse Pulse Pulse Resp BP BP 01/10/20 08:27 98.1 F 69 14 156/66 01/10/20 03:00 98.3 F 76 18 155/70 01/09/20 23:35 97.9 F 57 L 16 151/74 01/09/20 22:47 98.3 F 63 18 141/79 01/09/20 21:20 98.2 F 69 18 130/55 01/09/20 19:30 76 18 144/75 01/09/20 18:24 70 18 131/71 01/09/20 16:47 97.3 F L 81 18 136/71 Pulse Ox 01/10/20 08:27 95 01/10/20 03:00 99 01/09/20 23:35 99 01/09/20 22:47 96 01/09/20 21:20 97 01/09/20 19:30 96 01/09/20 18:24 97 01/09/20 16:47 97 Intake and Output 01/09/20 01/10/20 01/10/20 22:59 06:59 14:59 Other: Voiding Method Toilet # Voids 1 1 Weight 89.811 kg 89.811 kg On physical examination, patient appears comfortable in no apparent distress. HEAD: Normocephalic, atraumatic. EYES: No scleral icterus. No conjunctival injection. MOUTH: No lesions, tongue midline. NECK: Trachea midline, no gross abnormalities. CHEST: Clear to auscultation with no wheezing or rhonchi appreciated. HEART: Regular rate and rhythm. ABDOMEN: Soft, nontender to palpation. Bowel sounds are positive. No organomegaly. No guarding or rigidity. EXTREMITIES: No pedal edema. SKIN: No rashes, no jaundice. NEUROLOGIC: Alert and oriented x3. No focal deficits. Results CBC & Chem 7: 01/09/20 18:01 01/10/20 07:40 Labs: Abnormal Lab Results - Last 24 Hours (Table) 01/09/20 01/09/20 01/09/20 Range/Units 18:01 18:01 21:19 Potassium 5.6 H (3.5-5.1) mmol/L Carbon Dioxide 19 L 19 L (22-30) mmol/L BUN 27 H 26 H (9-20) mg/dL Creatinine 1.57 H 1.38 H (0.66-1.25) mg/dL Glucose 160 H 119 H (74-99) mg/dL POC Glucose (mg/dL) (75-99) mg/dL Plasma Lactic Acid Hossein 3.0 H* (0.7-2.0) mmol/L 01/09/20 01/10/20 01/10/20 Range/Units 21:19 06:14 07:40 Potassium (3.5-5.1) mmol/L Carbon Dioxide (22-30) mmol/L BUN (9-20) mg/dL Creatinine (0.66-1.25) mg/dL Glucose 145 H (74-99) mg/dL POC Glucose (mg/dL) 134 H (75-99) mg/dL Plasma Lactic Acid Hossein 3.0 H* (0.7-2.0) mmol/L 01/10/20 Range/Units 11:43 Potassium (3.5-5.1) mmol/L Carbon Dioxide (22-30) mmol/L BUN (9-20) mg/dL Creatinine (0.66-1.25) mg/dL Glucose (74-99) mg/dL POC Glucose (mg/dL) 224 H (75-99) mg/dL Plasma Lactic Acid Hossein (0.7-2.0) mmol/L CT scan - abdomen: report reviewed (computed tomography scan of the abdomen with findings of diverticulosis) Assessment and Plan (1) Abdominal pain Narrative/Plan: 74-year-old male with multiple medical comorbidities including coronary artery disease with recent stent placement who presented to the hospital with abdominal pain. Evaluation essentially within normal limits with computed tomography scan of the abdomen significant only for diverticulosis, hemoglobin 13.2 with negative testing for occult bloodand liver enzymes within normal limits. He denies any nausea, vomiting or change in bowel habits but does suffer from ch ronic constipation at baseline. Currently abdominal pain is improved. Status: Acute Code(s): R10.9 - UNSPECIFIED ABDOMINAL PAIN SNOMED Code(s): 22381382 (2) Chronic constipation Status: Acute Code(s): K59.09 - OTHER CONSTIPATION SNOMED Code(s): 786410152 (3) Diverticulosis Status: Acute Code(s): K57.90 - DVRTCLOS OF INTEST, PART UNSP, W/O PERF OR ABSCESS W/O BLEED SNOMED Code(s): 473890090 Plan: supportive care Okay for diet as tolerated Continue current medical management Extensive discussion with the patient in regards to initiation of a bowel regimen, patient instructed to by OTC MiraLAX and start a daily regimen and titrate to daily soft formed bowel movements Computed tomography scan of the abdomen reviewed Thank you for allowing us to participate in the care of the patient
== END 2020-01-10 13:35 | disposition home or self-care (01) ==
LOC: EC 15:28 → 1SOBS 22:58
PROVIDERS: ADMIT Internal Medicine; ATTEND Internal Medicine
DX: N17.9 Acute kidney failure, unspecified (principal); R10.13 Epigastric pain; R10.9 Unspecified abdominal pain; R11.0 Nausea; R19.7 Diarrhea, unspecified; R50.9 Fever, unspecified; E86.0 Dehydration; E87.2 Acidosis; J98.11 Atelectasis; K59.09 Other constipation; R50.82 Postprocedural fever; E11.65 Type 2 diabetes mellitus with hyperglycemia; Z20.828 Contact with and (suspected) exposure to other viral communicable diseases; E87.5 Hyperkalemia; J45.909 Unspecified asthma, uncomplicated; I25.10 Atherosclerotic heart disease of native coronary artery without angina pectoris; I10 Essential (primary) hypertension; K21.9 Gastro-esophageal reflux disease without esophagitis; H91.90 Unspecified hearing loss, unspecified ear; E78.5 Hyperlipidemia, unspecified; M54.9 Dorsalgia, unspecified; G89.4 Chronic pain syndrome; E11.40 Type 2 diabetes mellitus with diabetic neuropathy, unspecified; Z95.5 Presence of coronary angioplasty implant and graft; Z98.1 Arthrodesis status; Z98.890 Other specified postprocedural states; Z82.49 Family history of ischemic heart disease and other diseases of the circulatory system; Z79.82 Long term (current) use of aspirin; Z79.818 Long term (current) use of other agents affecting estrogen receptors and estrogen levels; Z79.4 Long term (current) use of insulin; Z79.899 Other long term (current) drug therapy; Z79.02 Long term (current) use of antithrombotics/antiplatelets
CPT/HCPCS: 96360; 96361; 99285; 36415; 93005; 80053; 80048; 83605 ×2; 83690; 84484; 85025; 82272; 81003; 83036; 87635; 71046; 74177; G0378 ×2; Q9967

== ENCOUNTER → 2020-03-29 | Outpatient (CLI) | payer MEDICARE ==
[2020-03-29 11:32] LABS: African American GFR (CKD) 61.4 (60.0-200.0); Albumin/Globulin Ratio 2.27 (1.60-3.17); Anion Gap 10.1 mmol/L (4.00-12.00); BUN/Creat Ratio 21.54 Ratio (12.00-20.00); Calcium 9.6 mg/dL (8.7-10.3); Carbon Dioxide 23.9 mmol/L (21.6-31.8); Chol/HDL Ratio 3.16; Globulin 2.2 g/dL (1.6-3.3); LDL Cholesterol,Calculated 51.8 mg/dL (0.0-131.0); Potassium 4.8 mmol/L (3.5-5.5); Total Bilirubin 0.3 mg/dL (0.2-1.2); Total Protein 7.2 g/dL (6.2-8.2); VLDL Calculation 41.2 mg/dL (5.00-40.00)
== END | disposition home or self-care (01) ==
LOC: LABWHC1 07:05
PROVIDERS: ATTEND Nurse Practitioner Adult Health
DX: I10 Essential (primary) hypertension (principal); E78.2 Mixed hyperlipidemia
CPT/HCPCS: 36415; 80053; 80061

== ENCOUNTER → 2020-06-28 | Outpatient (CLI) | payer MEDICARE ==
[2020-06-28 12:35] LABS: African American GFR (CKD) 67.7 (60.0-200.0); Albumin 4.7 g/dL (3.80-4.90); Albumin/Globulin Ratio 2.04 (1.60-3.17); Anion Gap 10.7 mmol/L (4.00-12.00); BUN/Creat Ratio 19.17 Ratio (12.00-20.00); Calcium 9.5 mg/dL (8.7-10.3); Carbon Dioxide 24.3 mmol/L (21.6-31.8); Chol/HDL Ratio 3.7; Globulin 2.3 g/dL (1.6-3.3); LDL Cholesterol,Calculated 77.6 mg/dL (0.0-131.0); Non-African American GFR(CKD) 58.4 (60.0-200.0); Potassium 5.5 mmol/L (3.5-5.5); Total Bilirubin 0.4 mg/dL (0.2-1.2); VLDL Calculation 38.4 mg/dL (5.00-40.00)
[2020-06-28 12:43] LABS: Prostate Specific Antigen 0.8 ng/mL (0.0-6.5)
[2020-06-28 14:58] LABS: Hemoglobin A1C 7.1 % (4.0-6.0)
[2020-06-29 03:34] LABS: Urine Creatinine 135.9 mg/dL
== END | disposition home or self-care (01) ==
LOC: LABWHC1 07:32
PROVIDERS: ATTEND Internal Medicine Interventional Cardiology
DX: E78.2 Mixed hyperlipidemia (principal)
CPT/HCPCS: 36415; 80053; 80061; 82043; 82570; 83036; 84153; 84443

== ENCOUNTER 2020-07-24 06:02 | Day surgery (SDC) | payer MEDICARE ==
[~2020-07-24 06:02] MED LIST changes: -ASPIRIN 81 MG PO SCH; -ATORVASTATIN 40 MG TAB PO SCH; -ATROPINE SULFATE 0.1 MG/ML 10ML SYRINGE IV PRN; -HEPARIN SODIUM 1,000 UN/ML (10ML VL) ONE; +HEPARIN SODIUM,PORCINE 10,000 UNIT in SODIUM CHLORIDE 0.9% 1,000 ML IRRIGATION PRN; +HEPARIN SODIUM,PORCINE 2,500 UNIT in SODIUM CHLORIDE 0.9% 250 ML IRRIGATION PRN; -HYDROcodone/APAP 7.5-325MG 1 EACH TAB PO PRN; -IOPAMIDOL-370 100ML BTL INJ ONE; -IOPAMIDOL-370 125ML BTL INJ ONE; -ISOSORBIDE MONONITRATE ER 30 MG TAB.ER.24H PO SCH; -LIDOCAINE 1% INJ 10MG/ML (20 ML MDV) ONE; -LIDOCAINE 1% INJ 10MG/ML (20 ML MDV) SQ ONE; -MAG HYDROX/AL HYDROX/SIMETH 30 ML CUP PO PRN; -MIDAZOLAM 2 MG/2 ML VIAL IVP ONE; -NITROGLYCERIN 1000MCG/10ML SYRINGE INTRACORON ONE; -NON FORMULARY DRUG (Insulin Glargine 100 UNIT/ML Vial) SQ SCH; -PANTOPRAZOLE 40 MG TABLET PO SCH; -PRASUGREL 10 MG TAB ONE; -PRASUGREL 10 MG TAB PO ONE; -PRASUGREL 10 MG TAB PO SCH; -PREGABALIN 75 MG CAP PO SCH; -RX INFO: IV CONTRAST WAS GIVEN 1 EACH MISC MISCELLANE PRN; -SODIUM CHLORIDE 0.9% 1,000 ML IV SCH; -VERAPAMIL 2.5 MG/ML 2 ML AMP ONE; -VERAPAMIL SYRINGE (5 MG/10 ML) INTRAARTER ONE; -ZOLPIDEM 5 MG TAB PO PRN; -amLODIPine 10 MG TAB PO SCH; -fentaNYL (PF) 50 MCG/ML 2 ML AMP IVP ONE; -fentaNYL (PF) 50 MCG/ML 2 ML AMP ONE; -glipiZIDE 10 MG TAB PO SCH; -lisinopriL 20 MG TAB PO SCH
[2020-07-24 06:23] LABS: Glucose,Whole Blood 181 mg/dL (75-99)
[2020-07-24 06:31] VITALS: RESP 18; TEMP 97.1
[2020-07-24 06:35] LABS: Basophils # (A) 0.1 k/uL (0-0.2); Basophils % (A) 1 %; Eosinophils # (A) 1.2 k/uL (0-0.7); Eosinophils % (A) 13 %; HGB 12.7 gm/dL (13.0-17.5); Lymphocytes # (A) 2.3 k/uL (1.0-4.8); Lymphocytes % (A) 24 %; MCH 28.6 pg (25.0-35.0); MCHC 33.4 g/dL (31.0-37.0); MCV 85.5 fL (80.0-100.0); Mean Platelet Volume 7.4; Monocytes # (A) 0.7 k/uL (0-1.0); Monocytes % (A) 7 %; Neutrophils # (A) 4.9 k/uL (1.3-7.7); Neutrophils % (A) 53 %; Platelet Count 276 k/uL (150-450); RBC 4.45 m/uL (4.30-5.90); RDW 14.8 % (11.5-15.5); WBC 9.3 k/uL (3.8-10.6)
[2020-07-24] MEDS ORDERED: ASPIRIN 81 MG ONE (06:38)
[2020-07-24] MEDS ORDERED: fentaNYL (PF) 50 MCG/ML 2 ML AMP IV ONE (07:28)
[2020-07-24] MEDS ORDERED: LIDOCAINE 1% INJ 10MG/ML (20 ML MDV) SQ ONE (07:33)
[2020-07-24] MEDS ORDERED: VERAPAMIL SYRINGE (5 MG/10 ML) INTRAARTER ONE (07:35)
[2020-07-24] MEDS: HEPARIN SODIUM 1,000 UN/ML (10ML VL) IV ONE ×3 (07:38→08:08)
[2020-07-24] MEDS ORDERED: MIDAZOLAM 2 MG/2 ML VIAL IV ONE (07:53)
[2020-07-24] MEDS ORDERED: NITROGLYCERIN 1000MCG/10ML SYRINGE INTRACORON ONE (07:54)
[2020-07-24] MEDS ORDERED: IOPAMIDOL-370 125ML BTL INJ ONE (08:03)
[2020-07-24] MEDS ORDERED: ZOLPIDEM 5 MG TAB PO PRN (08:31)
[2020-07-24] MEDS ORDERED: ATROPINE SULFATE 0.1 MG/ML 10ML SYRINGE IV PRN (08:31)
[2020-07-24] MEDS ORDERED: RX INFO: IV CONTRAST WAS GIVEN 1 EACH MISC MISCELLANE PRN (08:31)
[2020-07-24] MEDS ORDERED: NITROGLYCERIN SL TABS 0.4 MG TAB SUBLINGUAL PRN (08:31)
[2020-07-24] MEDS ORDERED: MAG HYDROX/AL HYDROX/SIMETH 30 ML CUP PO PRN (08:31)
[2020-07-24] MEDS ORDERED: PANTOPRAZOLE 40 MG TABLET PO PRN (08:33)
[2020-07-24] MEDS ORDERED: SODIUM CHLORIDE 0.9% 1,000 ML IV SCH (08:45)
--- NOTE | 2020-07-24 08:53 | CC ---
CARDIAC CATHETERIZATION REPORT Mr. Benjamin is a 75-year-old male with known history of coronary artery disease, prior percutaneous revascularization, history of hypertension, hyperlipidemia, diabetes mellitus, who has been complaining of exertional chest discomfort of new onset reminding him of the way he felt prior to his most recent PCI. In view of that, recommendation was made regarding cardiac catheterization. The procedure as well as the risks and the complications were discussed with the patient who is in full understanding and agreement. PROCEDURE: Patient was brought to [facility] in a fasting semi-sedated state after receiving fentanyl and Benadryl and achieving moderate conscious sedated state. Using Xylocaine anesthesia and Seldinger technique, a 6-Vincentian sheath was introduced in the right radial artery. Selective right and left coronary angiography performed using 5-Vincentian 3.5 bend right and left Magi catheter. Multiple views of the coronary artery including hemiaxial views obtained. Following that, 5-Vincentian tight pigtail catheter was introduced in the left ventricle and pressures were calculated. Following that, catheter and sheath were removed, images were reviewed. FINDINGS: FLUOROSCOPY: There was calcification involving the left anterior descending artery. LEFT MAIN: This is a large-sized vessel, bifurcating into left circumflex, left anterior descending artery. Left main coronary artery has no evidence of high-grade stenosis. LEFT CIRCUMFLEX: This is a nondominant vessel giving rise to 2 obtuse marginal branches. The first obtuse marginal branch has 80% to 90% stenosis proximal to the prior stented segment. The second obtuse marginal branch has a 50% to 60% plaque at the proximal segment. The rest of the vessel has diffuse intimal disease without any evidence of high-grade stenosis. LEFT CIRCUMFLEX: This is a large-sized vessel reaching to the apex with a wraparound apex segment. The stented segment is patent. There is mild to moderate disease in the mid LAD of 50%. The rest of the vessel has no high-grade stenosis. RIGHT CORONARY ARTERY: This is a large dominant vessel tortuous. Proximally the right coronary artery has 50% to 60% plaque. The mid and distal vessel has mild intimal disease of 30%. The rest of the vessel has no high-grade stenosis. LEFT VENTRICULOGRAM: Left ventriculogram was not performed. HEMODYNAMICS: There was no gradient across the aortic valve. The left ventricular end-diastolic pressure was 16 mmHg. CONCLUSION: 1. Significant stenosis in the first obtuse marginal branch. 2. Moderate triple-vessel disease involving the left anterior descending artery, second obtuse marginal branch and the right coronary artery with no progression of disease compared to 2001. RECOMMENDATION: In view of finding anatomy, I recommend proceeding with angioplasty and stenting of the first obtuse marginal branch. The procedure as well as the risks and complications were discussed with the patient who is in full understanding and agreement. MMMELISSA / KAVYAN: [id number] /
--- NOTE | 2020-07-24 08:56 | PTCA ---
PERCUTANEOUSTRANS CORORONARY ANGIOGRAPHY Mr. Benjamin is a 75-year-old male with known history of coronary artery disease who presented with symptoms of new onset angina pectoris, underwent cardiac catheterization was found to have critical stenosis involving the first obtuse marginal branch. In view of that, recommendation was made regarding angioplasty and stenting. The procedure as well as the risks and the complications were discussed with the patient who is in full understanding and agreement. PROCEDURE: A 6-Prydeinig FL 3.5 guiding catheter introduced in the system. After cannulating the left main, a 0.014 balanced medium weight J-wire was advanced across the lesion positioned distally then a 2.75 x 12 mm Xience Kaylee stent was advanced, deployed and post dilated at 16 atmospheres. After the last inflation, after appropriate wait, the balloon and the guidewire were withdrawn back in the guiding catheter. Images were obtained and repeated. Those images reveal stable successful stenting. At that point, the guiding catheter, the balloon and the guidewire were removed. The sheath was removed. Hemostasis was obtained with deployment of TR band. There was no immediate complication. Patient was returned to his room in stable condition. Of note, the patient received a total of 8000 units of intravenous heparin throughout the procedure. His ACT was followed. He was continued on Effient and received intra-arterial verapamil. Successful stenting of the first obtuse marginal branch with reduction of stenosis from 80% to 0%. RECOMMENDATION: Patient will be continued on aspirin, Effient, ALLEN inhibitor and statin. The importance of dual antiplatelet treatment was discussed with the patient and his family and are in full understanding and agreement. Duration of procedure is 31 minutes. MMODL / IJN: [id number] /
[2020-07-24 12:24] VITALS: BP 108/56; PULSE 56
[2020-07-24] MEDS ORDERED: INSULIN ASPART (NovoLOG) 100 UNIT/ML VIAL SQ SCH (12:30)
[2020-07-24] MEDS ORDERED: glipiZIDE 10 MG TAB PO SCH (17:30)
[2020-07-24] MEDS ORDERED: FAMOTIDINE 20 MG TAB PO SCH (21:00)
[2020-07-25] MEDS ORDERED: CYANOCOBALAMIN 500 MCG TAB PO SCH (07:30)
[2020-07-25] MEDS ORDERED: amLODIPine 10 MG TAB PO SCH (09:00)
[2020-07-25] MEDS ORDERED: ISOSORBIDE MONONITRATE ER 30 MG TAB.ER.24H PO SCH (09:00)
[2020-07-25] MEDS ORDERED: ASPIRIN 81 MG PO SCH (09:00)
[2020-07-25] MEDS ORDERED: PRASUGREL 10 MG TAB PO SCH (09:00)
[2020-07-25] MEDS ORDERED: TAMSULOSIN 0.4 MG CAP.ER.24H PO SCH (09:00)
[2020-07-25] MEDS ORDERED: PREGABALIN 50 MG CAP PO SCH (09:00)
[2020-07-25] MEDS ORDERED: CHOLECALCIFEROL 25 MCG (1000 IU) TABLET PO SCH (09:00)
[2020-07-25] MEDS ORDERED: lisinopriL 20 MG TAB PO SCH (09:00)
[2020-07-25] MEDS ORDERED: ATORVASTATIN 40 MG TAB PO SCH (09:00)
== END 2020-07-24 12:05 | disposition home or self-care (01) ==
LOC: CATHCVL 06:02
PROVIDERS: ATTEND Internal Medicine Interventional Cardiology
DX: I25.110 Atherosclerotic heart disease of native coronary artery with unstable angina pectoris (principal); I25.84 Coronary atherosclerosis due to calcified coronary lesion; I10 Essential (primary) hypertension; E78.00 Pure hypercholesterolemia, unspecified; E78.2 Mixed hyperlipidemia; Z20.822 Contact with and (suspected) exposure to COVID-19; K21.9 Gastro-esophageal reflux disease without esophagitis; E11.51 Type 2 diabetes mellitus with diabetic peripheral angiopathy without gangrene; Z82.49 Family history of ischemic heart disease and other diseases of the circulatory system; Z95.5 Presence of coronary angioplasty implant and graft; Z98.890 Other specified postprocedural states; M19.90 Unspecified osteoarthritis, unspecified site; Z79.82 Long term (current) use of aspirin; Z79.899 Other long term (current) drug therapy
CPT/HCPCS: 93458; 85025; 87635; C9600; C1769 ×2; C1887; C1894; C1874; J2250; J2001; J3010; J1644; Q9967

== ENCOUNTER → 2020-09-07 | Outpatient (CLI) | payer MEDICARE ==
--- NOTE | 2020-09-07 12:38 | XR ---
EXAMINATION TYPE: XR chest 2V DATE OF EXAM: 09/07/2020 COMPARISON: 01/09/2020 HISTORY: Shortness of breath TECHNIQUE: Frontal and lateral views of the chest are obtained. FINDINGS: Low lung volumes. Mild elevation of the left hemidiaphragm is stable. Heart size is within normal limits. No focal consolidation, pneumothorax or pleural effusion. Degenerative changes of the thoracic spine. IMPRESSION: 1. No acute pulmonary disease. Mild elevation of left hemidiaphragm is stable.
== END | disposition home or self-care (01) ==
LOC: RADXRMAIN 11:50
PROVIDERS: ATTEND Family Medicine
DX: R06.02 Shortness of breath (principal)
CPT/HCPCS: 71046

== ENCOUNTER → 2020-12-05 | Outpatient (CLI) | payer MEDICARE ==
--- NOTE | 2020-12-05 12:44 | CT ---
EXAMINATION TYPE: CT ChestAbdPelvis wo con DATE OF EXAM: 12/05/2020 COMPARISON: CT abdomen and pelvis 01/09/2020 HISTORY: Abdominal pain CT DLP: 1121 mGycm. Automated Exposure Control for Dose Reduction was Utilized. TECHNIQUE: CT scan of the thorax, abdomen and pelvis is performed without IV contrast. FINDINGS: Lack of intravenous contrast could compromise sensitivity. LUNGS: The lungs are grossly clear, there is no concerning parenchymal mass or nodule identified. T here is no pleural effusion or pneumothorax seen. The tracheobronchial tree is patent. MEDIASTINUM: There are no greater than 1 cm hilar or mediastinal lymph nodes. No pericardial effusi on is seen. There are extensive coronary artery calcifications. Prominence of the pulmonary arteries suggest pulmonary artery hypertension. OTHER: No additional significant abnormality is seen. LIVER/GB: The liver shows low-attenuation occluded due to hepatic steatosis, gallbladder is unremarka ble.. PANCREAS: No significant abnormality is seen. SPLEEN: No significant abnormality is seen. ADRENALS: No significant abnormality is seen. KIDNEYS: Right kidney somewhat decreased in size as compared to left. BOWEL: Diverticular changes are associated with the colon, there is no evident bowel obstruction, no appendicitis GENITAL ORGANS: No gross abnormality seen. LYMPH NODES: No greater than 1cm abdominal or pelvic lymph nodes are appreciated. OSSEOUS STRUCTURES: Postoperative changes are noted to the lower lumbar spine status post posterior f usion with laminectomies OTHER: Some thickening of the urinary bladder wall could be due to chronic outlet obstruction, lack o f distention, correlate to exclude cystitis. Suspect possible small hiatal hernia. IMPRESSION: Probable hepatic steatosis. Noncontrast exam. Postop changes. Diverticulosis. Findings in the bladder as described. Coronary artery disease and possible pulmonary artery hypertension.
== END | disposition home or self-care (01) ==
LOC: RADCTMAIN 11:41
PROVIDERS: ATTEND Family Medicine
DX: I25.10 Atherosclerotic heart disease of native coronary artery without angina pectoris (principal)
CPT/HCPCS: 71250; 74176

== ENCOUNTER → 2020-12-21 | Outpatient (CLI) | payer MEDICARE ==
[2020-12-21 18:46] LABS: African American GFR (CKD) 67.7 (60.0-200.0); Albumin 4.6 g/dL (3.8-4.9); Albumin/Globulin Ratio 1.84 (1.60-3.17); Anion Gap 15.7 mmol/L (4.00-12.00); BUN/Creat Ratio 15.75 Ratio (12.00-20.00); Blood Urea Nitrogen 18.9 mg/dL (9.0-27.0); Calcium 9.3 mg/dL (8.7-10.3); Carbon Dioxide 19.3 mmol/L (21.6-31.8); Chol/HDL Ratio 2.91 Ratio; Globulin 2.5 g/dL (1.6-3.3); HDL Cholesterol 43.3 mg/dL (40.00-60.00); LDL Cholesterol,Calculated 55.5 mg/dL (0.0-131.0); Non-African American GFR(CKD) 58.4 (60.0-200.0); Potassium 5.3 mmol/L (3.5-5.5); Total Bilirubin 0.2 mg/dL (0.30-1.20); Total Protein 7.1 g/dL (6.2-8.2); VLDL Calculation 27.2 mg/dL (5.00-40.00)
== END | disposition home or self-care (01) ==
LOC: LABWHC1 09:08
PROVIDERS: ATTEND Internal Medicine Interventional Cardiology
DX: E78.2 Mixed hyperlipidemia (principal)
CPT/HCPCS: 36415; 80053; 80061

== ENCOUNTER 2021-02-07 06:16 | Day surgery (SDC) | payer MEDICARE ==
[~2021-02-07 06:16] MED LIST changes: -ALPRAZolam 0.25 MG TAB PO PRN; -ALPRAZolam 0.5 MG TAB PO PRN; -ASPIRIN 325 MG TAB PO STA; -ATORVASTATIN 80 MG TAB PO STA; -HEPARIN SODIUM,PORCINE 10,000 UNIT in SODIUM CHLORIDE 0.9% 1,000 ML IRRIGATION PRN; -HEPARIN SODIUM,PORCINE 2,500 UNIT in SODIUM CHLORIDE 0.9% 250 ML IRRIGATION PRN; +LACTATED RINGERS 1,000 ML IV SCH; +LIDOCAINE 1% (10MG/ML) FOR IV START INTRADERMA PRN; -NITROGLYCERIN SL TABS 0.4 MG TAB SUBLINGUAL PRN; -SODIUM CHLORIDE 0.9% 1,000 ML in EMPTY BAG 1 BAG IV ONE
[2021-02-07 07:02] LABS: Glucose,Whole Blood 124 mg/dL (75-99)
[2021-02-07 07:12] VITALS: TEMP 97.6
[2021-02-07] MEDS ORDERED: PROPOFOL 10 MG/ML 20 ML VIAL IV ONE (07:13)
--- NOTE | 2021-02-07 07:27 | P.PCN ---
Date of Procedure: 02/07/21 Procedure(s) Performed: BRIEF HISTORY: Patient is a 75-year-old pleasant white male scheduled for an elective colonoscopy as a part of screening for colon rectal neoplasia. PROCEDURE PERFORMED: Colonoscopy with biopsy. PREOPERATIVE DIAGNOSIS: Screening for colon cancer. IV sedation per Anesthesia. PROCEDURE: After informed consent was obtained, the patient, was brought into the endoscopy unit. IV sedation was administered by Anesthesia under continuous monitoring. Digital rectal examination was normal. Initially the Olympus CF-160 flexible video colonoscope was then inserted in the rectum, gradually advanced into the cecum without any difficulty. Careful examination was performed as the scope was gradually being withdrawn. Ileocecal valve and the appendiceal orifice were visualized and appeared normal. Prep was excellent. The cecum appeared normal. Ascending colon there were 2 polyps measuring 2 mm and 3 mm in size removed by cold biopsy. Rest of the transverse colon, descending colon, sigmoid colon and rectum appeared normal. Scattered sigmoid diverticulosis seen. Retroflexion was performed in the rectum and small internal hemorrhoids were seen. The patient tolerated the procedure well. IMPRESSION: 2 mm and 3 mm ascending colon polyp status post cold biopsy Scattered sigmoid diverticulosis and small internal hemorrhoids RECOMMENDATIONS: Findings of this examination were discussed with the patient as well as his family. He was advised to follow with the biopsy results. If the biopsy reveals adenoma he can have a repeat colonoscopy in 5 years. He will start on fiber supplements and avoid straining and constipation..
[2021-02-07 07:33] VITALS: RESP 16
[2021-02-07 07:42] LABS: Glucose,Whole Blood 144 mg/dL (75-99)
[2021-02-07 07:54] VITALS: BP 110/62; PULSE 61
== END 2021-02-07 08:22 | disposition home or self-care (01) ==
LOC: ORWHC2ENDO 06:16
PROVIDERS: ATTEND Internal Medicine Gastroenterology
DX: Z12.11 Encounter for screening for malignant neoplasm of colon (principal); K57.90 Diverticulosis of intestine, part unspecified, without perforation or abscess without bleeding; K64.8 Other hemorrhoids; D12.2 Benign neoplasm of ascending colon; I10 Essential (primary) hypertension; E78.5 Hyperlipidemia, unspecified; E11.9 Type 2 diabetes mellitus without complications; K21.9 Gastro-esophageal reflux disease without esophagitis; I25.10 Atherosclerotic heart disease of native coronary artery without angina pectoris; Z79.84 Long term (current) use of oral hypoglycemic drugs; Z79.899 Other long term (current) drug therapy
CPT/HCPCS: 88305; 45380; J2704

== ENCOUNTER 2021-04-27 08:31 | Day surgery (SDC) | payer MEDICARE ==
[2021-04-26 10:29] VITALS: BMI 31.6
[~2021-04-27 08:31] MED LIST changes: +ALPRAZolam 0.25 MG TAB PO PRN; +ALPRAZolam 0.5 MG TAB PO PRN; +ASPIRIN 325 MG TAB PO STA; +HEPARIN SODIUM,PORCINE 10,000 UNIT in SODIUM CHLORIDE 0.9% 1,000 ML IRRIGATION PRN; +HEPARIN SODIUM,PORCINE 2,500 UNIT in SODIUM CHLORIDE 0.9% 250 ML IRRIGATION PRN; -LACTATED RINGERS 1,000 ML IV SCH; -LIDOCAINE 1% (10MG/ML) FOR IV START INTRADERMA PRN; +NITROGLYCERIN SL TABS 0.4 MG TAB SUBLINGUAL PRN; +SODIUM CHLORIDE 0.9% 1,000 ML in EMPTY BAG 1 BAG IV ONE
[2021-04-27] MEDS ORDERED: SODIUM CHLORIDE 0.9% 1,000 ML IV ONE (09:02)
[2021-04-27 09:06] VITALS: RESP 16; TEMP 98
[2021-04-27 09:06] LABS: Glucose,Whole Blood 197 mg/dL (75-99)
[2021-04-27 09:11] LABS: Basophils # (A) 0.1 k/uL (0-0.2); Basophils % (A) 1 %; Eosinophils # (A) 0.5 k/uL (0-0.7); Eosinophils % (A) 6 %; HCT 42.4 % (39.0-53.0); Lymphocytes # (A) 1.8 k/uL (1.0-4.8); Lymphocytes % (A) 23 %; MCH 30.2 pg (25.0-35.0); MCHC 33.1 g/dL (31.0-37.0); MCV 91.2 fL (80.0-100.0); Mean Platelet Volume 7.6; Monocytes # (A) 0.4 k/uL (0-1.0); Monocytes % (A) 6 %; Neutrophils # (A) 4.8 k/uL (1.3-7.7); Neutrophils % (A) 62 %; Platelet Count 290 k/uL (150-450); RBC 4.66 m/uL (4.30-5.90); RDW 14.4 % (11.5-15.5); WBC 7.8 k/uL (3.8-10.6)
[2021-04-27] MEDS ORDERED: LIDOCAINE 1% INJ 10MG/ML (20 ML MDV) ONE (09:46)
[2021-04-27] MEDS ORDERED: VERAPAMIL 2.5 MG/ML 2 ML AMP ONE (09:46)
[2021-04-27] MEDS ORDERED: HEPARIN SODIUM 1,000 UN/ML (10ML VL) ONE (09:47)
[2021-04-27] MEDS ORDERED: fentaNYL (PF) 50 MCG/ML 2 ML AMP ONE (09:47)
[2021-04-27] MEDS ORDERED: fentaNYL (PF) 50 MCG/ML 2 ML AMP IVP ONE (10:25)
[2021-04-27] MEDS ORDERED: LIDOCAINE 1% INJ 10MG/ML (20 ML MDV) SQ ONE (10:27)
[2021-04-27] MEDS ORDERED: VERAPAMIL SYRINGE (5 MG/10 ML) INTRAARTER ONE (10:29)
[2021-04-27] MEDS ORDERED: MIDAZOLAM 2 MG/2 ML VIAL IVP ONE (10:32)
[2021-04-27] MEDS: HEPARIN SODIUM 1,000 UN/ML (10ML VL) IVP ONE ×2 (10:34→10:43)
[2021-04-27] MEDS ORDERED: IOPAMIDOL-370 125ML BTL INJ ONE (11:06)
[2021-04-27] MEDS ORDERED: NITROGLYCERIN 1000MCG/10ML SYRINGE INTRACORON ONE (11:07)
[2021-04-27] MEDS ORDERED: IOPAMIDOL-370 100ML BTL INJ ONE (11:11)
[2021-04-27] MEDS ORDERED: RX INFO: IV CONTRAST WAS GIVEN 1 EACH MISC MISCELLANE PRN (11:23)
[2021-04-27] MEDS ORDERED: ATROPINE SULFATE 0.1 MG/ML 10ML SYRINGE IV PRN (11:23)
[2021-04-27] MEDS ORDERED: MAG HYDROX/AL HYDROX/SIMETH 30 ML CUP PO PRN (11:23)
[2021-04-27] MEDS ORDERED: ZOLPIDEM 5 MG TAB PO PRN (11:23)
[2021-04-27] MEDS ORDERED: NITROGLYCERIN SL TABS 0.4 MG TAB SUBLINGUAL PRN (11:23)
[2021-04-27] MEDS ORDERED: SODIUM CHLORIDE 0.9% 1,000 ML in EMPTY BAG 1 BAG IV SCH (11:30)
--- NOTE | 2021-04-27 11:32 | P.CARDCATH ---
Date of Procedure: 04/27/21 Description of Procedure: Cardiac Catheterization: The patient is a 76-year-old male with a known history of hypertension, hyperlipidemia and diabetes mellitus with multiple percutaneous revascularization most recently in July 2020 to the OM1 who presented with progressive worsening of his exertional chest discomfort and dyspnea on exertion. Recommendations were made regarding cardiac catheterization, the risks and the complications were discussed with the patient who is in full understanding and agreement. Procedure Description: Patient was brought to lab associate in fasting semi-sedated state after receiving Fentanyl and Benadryl achieiving moderate conscious sedated state. Using Xylocaine Anesthesia and Seldinger technique, a 6-Zambian sheath was introduced in the right radial artery . Subsequently, selective coronary angiography performed using a 5-[place]ambian 3.5 bend Magi catheter. Multiple views of the coronary artery including hemiaxial views were obtained. The 5-[place]ambian pigtail catheter was used to cross the aortic valve and LVEDP was calculated. Following that, catheter were removed. Of note, the patient received a total of 5000 units of intravenous heparin as well as intra-arterial verapamil. There was no immediate complications. Findings: Left main: This is a large size vessel, bifurcating into left circumflex and LAD, left main has no high-grade stenosis. LAD: This is a large size vessel, reaching to the apex, gives rise to a large diagonal branch proximally. The stented LAD in the mid segment is patent. Prior to the stent there is a 50% plaque. The vessel is calcified. Left circumflex: This is a nondominant vessel giving rise to 2 obtuse marginal branch, the proximal left circumflex has a 50% diffuse intimal disease. The stented first OM is patent with no evidence of restenosis. RCA: This is a large dominant vessel, very tortuous in the proximal and midsegme nt, calcified. The proximal RCA has an 85-90% stenosis. The mid segment has 20-30% plaque with no high-grade stenosis. Left Ventriculogram: Was not performed Hemodynamics: There was no gradient across the aortic valve, LVEDP 12-14 mmHg Conclusion: 1. Critical stenosis in the proximal RCA, his progression of disease in a very tortuous segment 2. Patent stent of the LAD and left circumflex 3. Moderate disease in the proximal left circumflex and mid LAD 4. Right dominance Recommendations: In view of the findings and the anatomy I have recommended to proceed with angioplasty and stenting of the RCA, the procedure as well as the risks and the complications were discussed with the patient who was in full agreement and understanding.
--- NOTE | 2021-04-27 11:37 | P.CARDCATH ---
Date of Procedure: 04/27/21 Description of Procedure: PERCUTANEOUS TRANSLUMINAL CORONARY ANGIOPLASTY CLINICAL INFORMATION: The patient is a 76-year-old male with known history of CAD who presented with progressive chest discomfort and dyspnea on exertion, was found to have significant obstructive disease involving the proximal very t ortuous RCA. Recommendations were made regarding angioplasty and stenting. The procedure as well as the risks and the complications were discussed with the patient. PROCEDURE: A 6 Slovak Magi 4 right guiding catheter was introduced into the system. After cannulating the left main, a 0.014 balanced medium J-wire was advanced across the lesion and positioned distally. Following that a Guidzella was advanced into system. Then a 2.5 x 12 mm NC Treck was advanced and 2 inflations at 10 lex were done. Following that a 4.0 x 18 mm sole point stent was deployed. It was dilated at 16 lex. Following that a 4.0 x 12 mm sole point stent was deployed distal to the first one and dilated at 16 lex. After the last inflation, after appropriate wait, the balloon and the guidewire were withdrawn back into the guiding catheter. Images were obtained and repeated. Those images reveal stable successful stenting. At that point, the guiding catheter, the balloon, and guidewire were removed. The sheath was removed. Hemostasis was obtained with deployment for TR band. There were no immediate complications. The patient was returned to the room in stable condition. Of note, the patient received total of 7000 units of heparin as well as Effient. RESULTS: Successful stenting of the proximal RCA with reduction of stenosis from 85 % to 0 %. RECOMMENDATIONS: I have recommended to continue dual antiplatelets treatment for at least 6 months in addition to aggressive coronary risks modifications. The findings as well as the recommendations were discussed with the patient and his family. They are in full understanding and agreement. Duration of sedation 48 minutes.
[2021-04-27] MEDS ORDERED: NON FORMULARY DRUG (Insulin Lispro (Humalog) 100 UNIT/1 ML Vial) SQ SCH (12:30)
[2021-04-27 14:46] VITALS: BP 122/67; PULSE 63
[2021-04-27] MEDS ORDERED: NON FORMULARY DRUG (Insulin Glargine 100 UNIT/ML Vial) SQ SCH (21:00)
[2021-04-27] MEDS ORDERED: NON FORMULARY DRUG (Pregabalin [Lyrica] 150 MG Capsule) PO SCH (21:00)
[2021-04-28] MEDS ORDERED: glipiZIDE 10 MG TAB PO SCH (09:00)
[2021-04-28] MEDS ORDERED: TAMSULOSIN 0.4 MG CAP.ER.24H PO SCH (09:00)
[2021-04-28] MEDS ORDERED: PRASUGREL 10 MG TAB PO SCH (09:00)
[2021-04-28] MEDS ORDERED: amLODIPine 10 MG TAB PO SCH (09:00)
[2021-04-28] MEDS ORDERED: ISOSORBIDE MONONITRATE ER 30 MG TAB.ER.24H PO SCH (09:00)
[2021-04-28] MEDS ORDERED: ASPIRIN 81 MG PO SCH (09:00)
[2021-04-28] MEDS ORDERED: QUINAPRIL HCL 40 MG PO SCH (09:00)
== END 2021-04-27 16:56 | disposition home or self-care (01) ==
LOC: CATHCVL 08:31
PROVIDERS: ATTEND Internal Medicine Interventional Cardiology
DX: I25.10 Atherosclerotic heart disease of native coronary artery without angina pectoris (principal); I10 Essential (primary) hypertension; E11.51 Type 2 diabetes mellitus with diabetic peripheral angiopathy without gangrene; I65.22 Occlusion and stenosis of left carotid artery; E78.2 Mixed hyperlipidemia; K21.9 Gastro-esophageal reflux disease without esophagitis; M54.9 Dorsalgia, unspecified; M19.90 Unspecified osteoarthritis, unspecified site; Z20.822 Contact with and (suspected) exposure to COVID-19; Z95.5 Presence of coronary angioplasty implant and graft; Z87.891 Personal history of nicotine dependence; Z79.899 Other long term (current) drug therapy; Z79.82 Long term (current) use of aspirin; Z79.84 Long term (current) use of oral hypoglycemic drugs; Z79.4 Long term (current) use of insulin; Z82.49 Family history of ischemic heart disease and other diseases of the circulatory system
CPT/HCPCS: 93458; 85025; 87635; C9600; C1769 ×2; C1887 ×2; C1894; C1725; C1874 ×2; J2250; J2001; J3010; J1644; Q9967 ×2

== ENCOUNTER 2021-06-14 20:47 | Emergency (ER) | payer MEDICARE ==
--- NOTE | 2021-06-14 21:37 | XR ---
EXAMINATION TYPE: XR chest 2V DATE OF EXAM: 06/14/2021 9:25 PM COMPARISON: Chest radiographs from 09/07/2020 TECHNIQUE: XR chest 2V 2 view. CLINICAL INDICATION:Male, 76 years old with history of cough; FINDINGS: Lungs/Pleura: There is no evidence of pleural effusion, focal consolidation, or pneumothorax. Pulmonary vascularity: Unremarkable. Heart/mediastinum: Cardiomediastinal silhouette is unremarkable. Musculoskeletal: No acute osseous pathology. There is fixation hardware in the lower cervical spine. IMPRESSION: No significant change from prior, no acute cardiopulmonary disease/process.
[2021-06-14] MEDS ORDERED: AZITHROMYCIN 500 MG TAB PO STA (23:01)
--- NOTE | 2021-06-14 23:03 | ED ---
General Adult HPI - General Chief complaint: Shortness of Breath Stated complaint: chest cold Time Seen by Provider: 06/14/21 21:10 Source: patient, RN notes reviewed, old records reviewed Mode of arrival: ambulatory - History of Present Illness Initial comments: Patient is a 76-year-old male with past medical history remarkable for cardiac disease, multiple stents presents emergency Department with upper respiratory illness symptoms. Has been having rhinorrhea, nonproductive cough for multiple days. Was vaccinated for COVID-19. Denies any sick contacts. States the coug ramonita seems to be getting worse which is why presents for further evaluation. Denies any nausea, vomiting, diarrhea. Denies any chest pain. His no other acute complaints at this time. - Related Data Home Medications Medication Instructions Recorded Confirmed Quinapril HCl 40 mg PO QAM 01/17/14 04/27/21 glipiZIDE [Glucotrol] 10 mg PO QAM 01/17/14 04/27/21 amLODIPine BESYLATE [Norvasc] 10 mg PO QAM 04/19/14 04/27/21 Omeprazole 20 mg PO BID PRN 08/28/17 04/27/21 HYDROcodone/APAP 7.5-325MG [[place] 1 tab PO QID PRN 10/16/17 04/27/21 7.5-325] Nitroglycerin Sl Tabs [Nitrostat] 0.4 mg SUBLINGUAL Q5M PRN 03/02/18 04/26/21 Aspirin EC [Ecotrin Low Dose] 81 mg PO DAILY 02/12/19 04/27/21 Cholecalciferol [Vitamin D3 (25 1,000 unit PO DAILY 02/12/19 04/27/21 Mcg = 1000 Iu)] Cyanocobalamin (Vitamin B-12) 5,000 mcg PO AC-BRKFST 02/12/19 04/27/21 [Vitamin B-12] INSULIN LISPRO (humaLOG) [humaLOG] See Protocol SQ AC-TID PRN 07/20/19 04/27/21 Insulin Glargine [Lantus Vial] 35 unit SQ HS 07/20/19 04/27/21 Isosorbide Mononitrate [Isosorbide 30 mg PO QAM 12/23/19 04/27/21 Mononitrate ER] INSULIN LISPRO (humaLOG) [humaLOG] 20 units SQ AC-TID 01/09/20 04/27/21 Tamsulosin HCl [Flomax] 0.4 mg PO DAILY 01/09/20 04/27/21 Pregabalin [Lyrica] 150 mg PO BID 01/18/20 04/27/21 Ferrous Sulfate [Iron (65 MG 1 tab PO DAILY 02/05/21 04/27/21 Elemental)] Prasugrel [Effient] 10 mg PO QAM 02/05/21 04/27/21 Previous Rx's Medication Instructions Recorded metFORMIN HCL [Glucophage] 1,000 mg PO BID #0 10/18/17 Azithromycin [Zithromax] 250 mg PO DAILY 4 Days #4 tab 06/14/21 Allergies Allergy/AdvReac Type Severity Reaction Status Date / Time No Known Allergies Allergy Verified 06/14/21 20:59 Review of Systems ROS Statement: Those systems with pertinent positive or pertinent negative responses have been documented in the HPI. Review of Systems: CONST: Denies fever EYES: Denies blurry vision ENT: Endorses nasal congestion C/V: Denies Chest pain RESP: Denies shortness of breath GI: Denies abdominal pain : Denies dysuria SKIN: Denies rash. MSK: Denies joint pain. NEURO: Denies headache ROS Other: All systems not noted in ROS Statement are negative. Past Medical History Past Medical History: Asthma, Coronary Artery Disease (CAD), Chest Pain / Angina, Diabetes Mellitus, GERD/Reflux, Hearing Disorder / Deafness, Hyperli pidemia, Hypertension Additional Past Medical History / Comment(s): IDDM. Hx chronic back pain, chronic pain syndrome. Neuropathy bilateral feet, [place]/uses hearing aids bilate rally. History of Any Multi-Drug Resistant Organisms: None Reported Past Surgical History: Heart Catheterization With Stent Additional Past Surgical History / Comment(s): trigger 2nd digit left hand 12-13-19, trigger finger release rt hand,Cervical fusion, back lami/injections, carpal tunnel surgery, colonoscopy/benign polypectomy. 3 stents placed 05/2021 Past Anesthesia/Blood Transfusion Reactions: No Reported Reaction Date of Last Stent Placement:: 2019 x1 stent Past Psychological History: No Psychological Hx Reported Smoking Status: Never smoker Past Alcohol Use History: None Reported Past Drug Use History: None Reported - Past Family History Father Family Medical History: Myocardial Infarction (ME) Additional Family Medical History / Comment(s): Passed at age 72. Mother Family Medical History: Myocardial Infarction ([place]) Additional Family Medical History / Comment(s): Passed at age 77. Brother(s) Family Medical History: Myocardial Infarction ([place]) Additional Family Medical History / Comment(s): 3 brothers passed from [place] in 50's. Sister(s) Family Medical History: Myocardial Infarction (ME) General Exam - General Exam Comments Initial Comments: General: Appears in no acute distress. HEAD: Normal with no signs of head trauma. EYES: PERRLA, EOMI, conjunctiva normal, no discharge. ENT: Hearing grossly intact, normal oropharynx. RESPIRATORY: Clear breath sounds bilaterally. No wheezes, rales, or rhonchi. No hypoxia. No increased work of breathing. C/V: Regular rate and rhythm. S1 and S2 auscultated, no edema, peripheral pulses 2+ and intact throughout ABD: Abd is soft, nontender, nondistended EXT: Normal range of motion, no obvious deformity SKIN: No rashes or lesions observed on exposed skin. NEURO: Alert and oriented 4. Course Vital Signs 06/14/21 06/14/21 20:48 23:09 Temperature 98.9 F 97.8 F Pulse Rate 76 70 Respiratory 21 18 Rate Blood Pressure 159/85 119/76 O2 Sat by Pulse 95 98 Oximetry Medical Decision Making - Medical Decision Making Based on the patient's presentation and physical exam, I am concerned for upper respiratory illness for the patient. Covid, flu swabs will be obtained as well as a chest x-ray. Screening EKG was obtained in triage. He was in agreement this plan. EKG shows no signs of acute ischemia. Chest x-ray revealed no acute cardiopulmonary process. Laboratory studies were remarkable for negative Covid, flu swabs. After the patient on results of his labs and imaging. He expressed understanding. I believe it is safe for him to be discharged home. He will be given azithromycin for home. He'll receive his first dose here in the department. He was in agreement this plan. He is follow-up with his PCP on Friday. I will provide the patient with a prescription for azithromycin. I instructed the patient to follow up with their PCP in the next 3 days. I explained that the patient should return to the emergency department if they experience any worsening symptoms. Strict return precautions were discussed with the patient. The patient expressed understanding of these instructions. I answered all questions that the patient had. The patient was discharged home in good condition with their prescriptions and follow up information. - Lab Data Lab Results 06/14/21 06/14/21 Range/Units 21:09 21:34 Coronavirus (PCR) Not Detected (Not Detectd) Influenza Type A RNA Not Detected (Not Detectd) Influenza Type B (PCR) Not Detected (Not Detectd) - EKG Data -: EKG Interpreted by Me EKG Comments: 12-lead Electrocardiogram Interpretation Note EKG was reviewed and interpreted by myself. 12-lead ECG performed at 2104 is interpreted by me as revealing normal sinus rhythm at a rate of 70 beats per minute. [place] is normal. [place] interval is 176 ms, QRS duration is 84 ms, QTc is 379 ms. There were no ST or T wave abnormalities to suggest myocardial ischemia or injury. R wave progression across the precordium was satisfactory. By my interpretation this EKG is non-diagnostic for acute ischemia. Disposition Clinical Impression: URI (upper respiratory infection) Disposition: HOME SELF-CARE Condition: Good Instructions (If sedation given, give patient instructions): Upper Respiratory Infection (ED) Prescriptions: Azithromycin [Zithromax] 250 mg PO DAILY 4 Days #4 tab Is patient prescribed a controlled substance at d/c from ED?: No Referrals: None,Stated [Primary Care Provider] - 1-2 days Tanja Ramirez MD [REFERRING] - 1-2 days Time of Disposition: 22:55
[2021-06-14 23:10] VITALS: BP 119/76; PULSE 70; RESP 18; TEMP 97.8
== END 2021-06-14 23:11 | disposition home or self-care (01) ==
LOC: EC 20:47
DX: J06.9 Acute upper respiratory infection, unspecified (principal); J44.9 Chronic obstructive pulmonary disease, unspecified; E11.9 Type 2 diabetes mellitus without complications; K21.9 Gastro-esophageal reflux disease without esophagitis; H91.90 Unspecified hearing loss, unspecified ear; I10 Essential (primary) hypertension; Z82.49 Family history of ischemic heart disease and other diseases of the circulatory system; Z79.1 Long term (current) use of non-steroidal anti-inflammatories (NSAID); Z20.822 Contact with and (suspected) exposure to COVID-19
CPT/HCPCS: 71046; 87502; 87635; 93005; 99285

== ENCOUNTER → 2021-08-13 | Outpatient (CLI) | payer MEDICARE ==
--- NOTE | 2021-08-13 07:23 | XR ---
EXAMINATION TYPE: XR cervical spine limited DATE OF EXAM: 08/13/2021 TECHNIQUE: Frontal, lateral, oblique, swimmers, and open mouth view of the cervical spine are obtaine d. HISTORY: M54.2 Neck Pain COMPARISON: None FINDINGS: Postoperative changes of the anterior cervical discectomy and fusion at C4-5. Anterior fixa tion plate and screws in place. Alignment is near-anatomic. Moderate degenerative disc disease at C6- 7 with ventral spondylosis. Mild/moderate degenerative disc disease at C7-T1 with mild ventral spondy losis. No fracture or malalignment. IMPRESSION: Appropriate postoperative appearance of the cervical spine.
== END | disposition home or self-care (01) ==
LOC: RADXRMAIN 06:53
PROVIDERS: ATTEND Internal Medicine
DX: M54.2 Cervicalgia (principal)
CPT/HCPCS: 72040

== ENCOUNTER → 2021-09-12 | Outpatient (CLI) | payer MEDICARE ==
[2021-09-12 10:57] LABS: ALT 29 U/L (10-49); AST 15 U/L (14-35); African American GFR (CKD) 59.9 (60.0-200.0); Albumin 4.5 g/dL (3.8-4.9); Albumin/Globulin Ratio 1.81 (1.60-3.17); Alkaline Phosphatase 86 U/L (41-126); BUN/Creat Ratio 18.11 Ratio (12.00-20.00); Blood Urea Nitrogen 23.9 mg/dL (9.0-27.0); Calcium 9.2 mg/dL (8.7-10.3); Carbon Dioxide 21.3 mmol/L (20.0-27.5); Chloride 102 mmol/L (96-109); Chol/HDL Ratio 3.55 Ratio; Globulin 2.5 g/dL (1.6-3.3); Glucose 160 mg/dL (70-110); LDL Cholesterol,Calculated 64.5 mg/dL (0.0-131.0); Non-African American GFR(CKD) 51.7 (60.0-200.0); Potassium 5.6 mmol/L (3.5-5.5); Sodium 137 mmol/L (135-145); Total Protein 6.9 g/dL (6.2-8.2)
[2021-09-13 01:07] LABS: Urine Creatinine 77.7 mg/dL (39.0-259.0)
== END | disposition home or self-care (01) ==
LOC: LABWHC1 07:34
PROVIDERS: ATTEND Internal Medicine Interventional Cardiology
DX: E11.65 Type 2 diabetes mellitus with hyperglycemia (principal); E78.2 Mixed hyperlipidemia
CPT/HCPCS: 36415; 80053; 80061; 82043; 82570; 83036; 84443

== ENCOUNTER → 2021-10-15 | Outpatient (CLI) | payer MEDICARE | END | disposition home or self-care (01) | LOC: LABWHC1 11:49 | PROVIDERS: ATTEND Urology | DX: R97.20 Elevated prostate specific antigen [PSA] (principal) | CPT/HCPCS: 36415; 84153 ==

== ENCOUNTER 2021-11-06 18:48 | Emergency (ER) | payer MEDICARE ==
--- NOTE | 2021-11-07 07:22 | ED ---
General Adult HPI - General Stated complaint: Weakness Time Seen by Provider: 11/07/21 06:42 Source: patient, RN notes reviewed Mode of arrival: ambulatory Limitations: no limitations - History of Present Illness Initial comments: 76-year-old male presents emergency Department with chief complaint of broken insulin needle. Patient states he is given who feels insulin in his left lower abdomen states that the needle broke off. Patient states never sought sticking out of his skin. Patient states he has some soreness but his usual monocytes. Denies any intra-abdominal. No nausea vomiting no fevers or chills shoulder associated complaints. - Related Data Home Medications Medication Instructions Recorded Confirmed Quinapril HCl 40 mg PO QAM 01/17/14 04/27/21 glipiZIDE [Glucotrol] 10 mg PO QAM 01/17/14 04/27/21 amLODIPine BESYLATE [Norvasc] 10 mg PO QAM 04/19/14 04/27/21 Omeprazole 20 mg PO BID PRN 08/28/17 04/27/21 HYDROcodone/APAP 7.5-325MG [[place] 1 tab PO QID PRN 10/16/17 04/27/21 7.5-325] Nitroglycerin Sl Tabs [Nitrostat] 0.4 mg SUBLINGUAL Q5M PRN 03/02/18 04/26/21 Aspirin EC [Ecotrin Low Dose] 81 mg PO DAILY 02/12/19 04/27/21 Cholecalciferol [Vitamin D3 (25 1,000 unit PO DAILY 02/12/19 04/27/21 Mcg = 1000 Iu)] Cyanocobalamin (Vitamin B-12) 5,000 mcg PO AC-BRKFST 02/12/19 04/27/21 [Vitamin B-12] INSULIN LISPRO (humaLOG) [humaLOG] See Protocol SQ AC-TID PRN 07/20/19 04/27/21 Insulin Glargine [Lantus Vial] 35 unit SQ HS 07/20/19 04/27/21 Isosorbide Mononitrate [Isosorbide 30 mg PO QAM 12/23/19 04/27/21 Mononitrate ER] INSULIN LISPRO (humaLOG) [humaLOG] 20 units SQ AC-TID 01/09/20 04/27/21 Tamsulosin HCl [Flomax] 0.4 mg PO DAILY 01/09/20 04/27/21 Pregabalin [Lyrica] 150 mg PO BID 01/18/20 04/27/21 Ferrous Sulfate [Iron (65 MG 1 tab PO DAILY 02/05/21 04/27/21 Elemental)] Prasugrel [Effient] 10 mg PO QAM 02/05/21 04/27/21 Previous Rx's Medication Instructions Recorded metFORMIN HCL [Glucophage] 1,000 mg PO BID #0 10/18/17 Azithromycin [Zithromax] 250 mg PO DAILY 4 Days #4 tab 06/14/21 Allergies Allergy/AdvReac Type Severity Reaction Status Date / Time No Known Allergies Allergy Verified 06/14/21 20:59 Review of Systems ROS Statement: Those systems with pertinent positive or pertinent negative responses have been documented in the HPI. ROS Other: All systems not noted in ROS Statement are negative. Past Medical History Past Medical History: Asthma, Coronary Artery Disease (CAD), Chest Pain / Angina, Diabetes Mellitus, GERD/Reflux, Hearing Disorder / Deafness, Hyperli pidemia, Hypertension Additional Past Medical History / Comment(s): IDDM. Hx chronic back pain, chronic pain syndrome. Neuropathy bilateral feet, [place]/uses hearing aids bilate [place]. History of Any Multi-Drug Resistant Organisms: None Reported Past Surgical History: Heart Catheterization With Stent Additional Past Surgical History / Comment(s): trigger 2nd digit left hand 12-13-19, trigger finger release rt hand,Cervical fusion, back lami/injections, carpal tunnel surgery, colonoscopy/benign polypectomy. 3 stents placed 05/2021 Past Anesthesia/Blood Transfusion Reactions: No Reported Reaction Date of Last Stent Placement:: 2019 x1 stent Past Psychological History: No Psychological Hx Reported Smoking Status: Never smoker Past Alcohol Use History: None Reported Past Drug Use History: None Reported - Past Family History Father Family Medical History: Myocardial Infarction ([place]) Additional Family Medical History / Comment(s): Passed at age 72. Mother Family Medical History: Myocardial Infarction ([place]) Additional Family Medical History / Comment(s): Passed at age 77. Brother(s) Family Medical History: Myocardial Infarction ([place]) Additional Family Medical History / Comment(s): 3 brothers passed from ID in 50's. Sister(s) Family Medical History: Myocardial Infarction ([place]) General Exam Limitations: no limitations General appearance: alert, in no apparent distress Head exam: Present: atraumatic, normocephalic, normal inspection Eye exam: Present: normal appearance, PERRL, EOMI. Absent: scleral icterus, conjunctival injection, periorbital swelling ENT exam: Present: normal exam, normal oropharynx, mucous membranes moist Neck exam: Present: normal inspection, full ROM. Absent: tenderness, meningismus, lymphadenopathy Respiratory exam: Present: normal lung sounds bilaterally. Absent: respiratory distress, wheezes, rales, rhonchi, stridor Cardiovascular Exam: Present: regular rate, normal rhythm, normal heart sounds. Absent: systolic murmur, diastolic murmur, rubs, gallop, clicks GI/Abdominal exam: Present: soft, normal bowel sounds. Absent: distended, tenderness, guarding, rebound, rigid Medical Decision Making - Medical Decision Making Blood sugar was 2:15, x-ray does not show any definite metallic foreign body. We discussed possibility at this may not represent on x-ray though felt less likely. He'll closely watched area he'll return for any worsening changes symptoms. Patient agrees to plan. - Lab Data Lab Results 11/07/21 Range/Units 07:36 POC Glucose (mg/dL) 215 H (70-110) mg/dL POC [employer] Ria Gee Disposition Clinical Impression: Diabetes, Needlestick injury of abdomen Disposition: HOME SELF-CARE Condition: Stable Additional Instructions: Please return to the Emergency Department if symptoms worsen or any other concerns. Is patient prescribed a controlled substance at d/c from ED?: No Referrals: Ashley Carvalho MD [Primary Care Provider] - 1-2 days Time of Disposition: 07:49
[2021-11-07 07:37] LABS: Glucose,Whole Blood 215 mg/dL (70-110)
[2021-11-07 07:57] VITALS: BP 138/78; PULSE 88; RESP 18; TEMP 97.2
--- NOTE | 2021-11-07 08:33 | XR ---
EXAM: XR Abdomen, 2 Views CLINICAL HISTORY: ITS.REASON XR Reason: fb lower abd TECHNIQUE: Frontal view of the abdomen/pelvis with upright view of the abdomen. COMPARISON: No relevant prior studies available. FINDINGS: Intraperitoneal space: No free air. Gastrointestinal tract: Unremarkable. No dilation. Bones/joints: L2-S1 spinal fusion hardware. IMPRESSION: No evidence of acute abnormality.
== END 2021-11-07 07:55 | disposition home or self-care (01) ==
LOC: EC 18:48
DX: S31.139A Puncture wound of abdominal wall without foreign body, unspecified quadrant without penetration into peritoneal cavity, initial encounter (principal); E11.40 Type 2 diabetes mellitus with diabetic neuropathy, unspecified; I10 Essential (primary) hypertension; J45.909 Unspecified asthma, uncomplicated; I25.10 Atherosclerotic heart disease of native coronary artery without angina pectoris; H91.90 Unspecified hearing loss, unspecified ear; K21.9 Gastro-esophageal reflux disease without esophagitis; Z79.4 Long term (current) use of insulin; Z79.84 Long term (current) use of oral hypoglycemic drugs; Z79.82 Long term (current) use of aspirin; Z79.899 Other long term (current) drug therapy; W46.1XXA Contact with contaminated hypodermic needle, initial encounter
CPT/HCPCS: 36415; 74018; 99283

== ENCOUNTER → 2021-11-09 | Outpatient (CLI) | payer MEDICARE ==
--- NOTE | 2021-11-09 07:44 | XR ---
EXAMINATION TYPE: XR chest 2V DATE OF EXAM: 11/09/2021 COMPARISON: 06/14/2021 HISTORY: Shortness of breath TECHNIQUE: Frontal and lateral views of the chest are obtained. FINDINGS: Scattered senescent parenchymal changes noted. Hyperinflation compatible with COPD. No evidence for infiltrate. No evidence for atelectasis. Heart size is stable. Mediastinal structures are stable and grossly unremarkable. No evidence for hilar prominence. Degenerative changes dorsal spine. IMPRESSION: 1. No evidence for acute pulmonary disease.
== END | disposition home or self-care (01) ==
LOC: RADXRMAIN 07:11
PROVIDERS: ATTEND Otolaryngology
DX: R05.9 Cough, unspecified (principal)
CPT/HCPCS: 71046

== ENCOUNTER → 2022-01-30 | Outpatient (CLI) | payer MEDICARE ==
[2022-01-30 10:49] LABS: ALT 23 U/L (10-49); AST 16 U/L (14-35); African American GFR (CKD) 67.9 (60.0-200.0); Albumin 4.3 g/dL (3.8-4.9); Albumin/Globulin Ratio 1.71 (1.60-3.17); Alkaline Phosphatase 85 U/L (41-126); BUN/Creat Ratio 21.09 Ratio (12.00-20.00); Blood Urea Nitrogen 25.1 mg/dL (9.0-27.0); Calcium 9.2 mg/dL (8.7-10.3); Carbon Dioxide 26.7 mmol/L (20.0-27.5); Chloride 103 mmol/L (96-109); Chol/HDL Ratio 2.73 Ratio; Globulin 2.5 g/dL (1.6-3.3); Glucose 119 mg/dL (70-110); LDL Cholesterol,Calculated 64.2 mg/dL (0.0-131.0); Non-African American GFR(CKD) 58.6 (60.0-200.0); Potassium 4.3 mmol/L (3.5-5.5); Sodium 141 mmol/L (135-145); Total Protein 6.8 g/dL (6.2-8.2)
[2022-01-30 11:01] LABS: Microalbumin Creatinine Ratio <30 mg/g Creat (0-30)
== END | disposition home or self-care (01) ==
LOC: LABWHC1 07:05
PROVIDERS: ATTEND Internal Medicine Endocrinology, Diabetes & Metabolism
DX: E11.65 Type 2 diabetes mellitus with hyperglycemia (principal); E78.2 Mixed hyperlipidemia
CPT/HCPCS: 36415; 80053; 80061; 82043; 82570; 83036; 84443

== ENCOUNTER → 2022-07-12 | Outpatient (CLI) | payer MEDICARE ==
--- NOTE | 2022-07-12 08:00 | MR ---
EXAMINATION TYPE: MR lumbar spine wo con DATE OF EXAM: 07/12/2022 COMPARISON: Prior MRI lumbar spine December 16, 2018 HISTORY: Low back pain into bilateral buttocks and thighs for many years TECHNIQUE: Multiplanar, multisequence imaging of the lumbar spine is performed without IV contrast. FINDINGS: Sagittal images of the lumbar spine show vertebral body heights to remain satisfactory. The re is stable slight grade 1 retrolisthesis L1 on L2 and retrolisthesis L4 and L5. There is artifact f rom posterior rods and screws bilaterally at L2-S1 levels on current study. Artificial disc material noted at L2-L3 and L5-S1 levels on current study. There is moderate to advanced disc space narrowing at L3-L4 and advanced disc space narrowing at L4-L5 level redemonstrated. The conus medullaris remai ns normal in position and signal ending mid L1 level. Posterior multilevel laminectomy defects with spinous process resection is redemonstrated. Vertebral body heights and disc space heights are mainta ined above surgical levels. Moderate multilevel anterior spurring. Axial images at T12-L1 level demonstrates mild broad-based disc bulge mildly effaces the anterior the pedro pablo sac and mild facet arthropathy and ligamentum flavum hypertrophy effacing the posterolateral thec al sac. Axial images at the L1-L2 level show spondylolisthesis with moderate broad disc bulge mildly effacing the anterior thecal sac and mild to moderate bilateral uncovertebral facet degenerative change and l igamentum flavum hypertrophy effacing posterior lateral thecal sac. There is more prominent spinal ca nal effacement or stenosis noted sagittal image 9 and axial image 25 when correlating with prior MRI. Bilateral neural foramina show mild narrowing. Axial images at L2-L3 through L5-S1 levels are degraded by artifact from surgical change. There is cornejo ccessful posterior decompression. There is persistent thin walled fluid collection at L5 level presum ed post surgical seroma. IMPRESSION: Interval surgical extension to L2 level. Successful posterior decompression changes redem onstrated. Stable alignment noted. More prominent degenerative change present at L1-L2 level as detai led above.
--- NOTE | 2022-07-12 12:04 | XR ---
EXAMINATION TYPE: XR shoulder limited RT DATE OF EXAM: 07/12/2022 11:27 AM INDICATION: Patient age:Male; 77 years old; Reason for study: M25.512 R shoulder pain; COMPARISON: Chest radiograph 03/18/2021. TECHNIQUE: The right shoulder was examined in AP and scapular Y projections.. FINDINGS: No evidence of acute osseous pathology, joint dislocation, or soft tissue swelling. Mild joint space narrowing with spurring during of the shoulder. Additionally there is joint space narrowing with caps ular hypertrophy and marginal spurring of the AC joint. The remaining portions of the visualized ches t are unremarkable. IMPRESSION: 1. No acute osseous pathology. 2. 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 3. AC joint arthropathy.
== END | disposition home or self-care (01) ==
LOC: RADMRIMAIN 06:53
PROVIDERS: ATTEND Internal Medicine
DX: M47.816 Spondylosis without myelopathy or radiculopathy, lumbar region (principal); M43.16 Spondylolisthesis, lumbar region; M19.011 Primary osteoarthritis, right shoulder
CPT/HCPCS: 72148

== ENCOUNTER → 2022-08-27 | Outpatient (CLI) | payer MEDICARE ==
--- NOTE | 2022-08-28 09:18 | CT ---
EXAMINATION TYPE: CT lumbar spine wo con DATE OF EXAM: 08/27/2022 5:05 PM COMPARISON: Most recent CT July 02, 2018 HISTORY: lumbar spondylosis with radiculopathy CT DLP: 1698.9 mGycm Automated exposure control for dose reduction was used. Unenhanced CT of the lumbar spine was performed. Bone and soft tissue window settings are submitted as well as coronal and sagittal reconstructions. There are 5 lumbar type vertebra redemonstrated. There are now posterior interpedicular rods and scre ws running L2-L3 level and L4-S1 levels. There are multilevel laminectomy defects and spinous process resection redemonstrated. Metallic disc material L5-S1 level is again seen. There is no metallic dis c material at the L2-L3 level. There is persistent grade 1 retrolisthesis L4 on L5. Moderate to advan melvin disc space narrowing at this level is redemonstrated. Improved alignment at L3-L4 level is seen w ith more prominent moderate to advanced disc space narrowing. There is new vacuum disc phenomenon wit h mild disc space narrowing and mild to moderate anterior spurring at L1-L2. [id number] multile brenda anterior and lateral spurring is redemonstrated. Review of axial images shows screw positioning to appear satisfactory bilaterally. Successful posteri or decompression changes are redemonstrated. Multilevel advanced facet arthropathy is more prominent from prior CT. Mild/moderate calcified plaque of the aorta extends into branch vessels. IMPRESSION: As above.
== END | disposition home or self-care (01) ==
LOC: RADCTMAIN 16:33
PROVIDERS: ATTEND Nurse Practitioner Family
DX: M47.26 Other spondylosis with radiculopathy, lumbar region (principal); M51.16 Intervertebral disc disorders with radiculopathy, lumbar region; M43.16 Spondylolisthesis, lumbar region
CPT/HCPCS: 72131

== ENCOUNTER → 2022-11-18 | Outpatient (CLI) | payer MEDICARE | END | disposition home or self-care (01) | LOC: LABWHC1 07:22 | PROVIDERS: ATTEND Orthopaedic Surgery | DX: Z01.812 Encounter for preprocedural laboratory examination (principal); M51.36 Other intervertebral disc degeneration, lumbar region; M48.061 Spinal stenosis, lumbar region without neurogenic claudication; M47.816 Spondylosis without myelopathy or radiculopathy, lumbar region; Z22.322 Carrier or suspected carrier of Methicillin resistant Staphylococcus aureus | CPT/HCPCS: 87070 ==

== ENCOUNTER 2022-12-19 15:02 | Emergency (ER) | payer MEDICARE ==
[2022-12-19 15:33] VITALS: RESP 18
[2022-12-19] MEDS ORDERED: MORPHINE SULFATE 4 MG/ML SYRINGE IVP STA (15:38)
--- NOTE | 2022-12-19 15:38 | ED ---
General Adult HPI - General Chief complaint: Extremity Injury, Lower Stated complaint: right leg pain/numbness Time Seen by Provider: 12/19/22 15:09 Source: patient Mode of arrival: EMS Limitations: no limitations - History of Present Illness Initial comments: 77-year-old male presenting to the ED with a chief complaint of knee pain. Patient previously seen here on 12/17/22 status post fall. At that time found to have a right proximal fibular fracture. Attending physician at that time spoke to Dr. Araujo and with that time recommended no knee immobilizer an outpatient follow-up. Since then, reports no new injury or trauma however reports increasing knee pain. States that he call Dr. Arcos's office and was advised to present to the ED for further evaluation. No other complaints at this time. Due to patient's medications shows that he is already on cyclobenzaprine as well. No incontinence or saddle anesthesia. - Related Data Home Medications Medication Instructions Recorded Confirmed glipiZIDE [Glucotrol] 10 mg PO DAILY 01/17/14 11/26/22 amLODIPine BESYLATE [Norvasc] 10 mg PO QAM 04/19/14 11/26/22 Aspirin EC [Ecotrin Low Dose] 81 mg PO DAILY 02/12/19 11/26/22 Cyanocobalamin (Vitamin B-12) 1,000 mcg PO DAILY 02/12/19 11/26/22 [Vitamin B-12] Insulin Glargine [Lantus Vial] 50 unit SQ HS 07/20/19 11/26/22 INSULIN LISPRO (humaLOG) [humaLOG] 35 units SQ AC-TID 01/09/20 11/26/22 Tamsulosin HCl [Flomax] 0.4 mg PO HS 01/09/20 11/26/22 Pregabalin [Lyrica] 150 mg PO BID 01/18/20 11/26/22 Atorvastatin [Lipitor] 40 mg PO DAILY 09/19/22 11/26/22 Isosorbide Mononitrate ER [Imdur] 60 mg PO QAM 09/19/22 11/26/22 Magnesium Oxide [Mag-Ox] 400 mg PO DAILY 09/19/22 11/26/22 Omeprazole [PriLOSEC] 20 mg PO AC-BID 11/21/22 11/26/22 Previous Rx's Medication Instructions Recorded metFORMIN HCL [Glucophage] 1,000 mg PO BID #0 10/18/17 Cyclobenzaprine [Flexeril] 5 mg PO TID #21 tablet 11/30/22 HYDROcodone/APAP 10-325MG [[place] 1 tab PO Q6HR PRN #24 tab 11/30/22 10-325] Ipratropium-Albuterol Nebulize 3 ml INHALATION RT-QID PRN each 11/30/22 [Duoneb 0.5 mg-3 mg/3 ml Soln] Pregabalin [Lyrica] 150 mg PO BID #24 cap 11/30/22 Sennosides/Docusate Sodium [Senna 1 each PO DAILY #20 capsule 11/30/22 Plus 8.6-50 mg Softgel] cefaDROXiL [Duricef] 500 mg PO Q12HR 5 Days #10 cap 11/30/22 predniSONE [Deltasone] 20 mg PO DAILY #0 tab 11/30/22 HYDROcodone/APAP 5-325MG [[place] 1 tab PO Q4HR PRN 3 Days #18 tab 12/19/22 5-325] Allergies Allergy/AdvReac Type Severity Reaction Status Date / Time No Known Allergies Allergy Verified 12/19/22 15:20 Review of Systems ROS Statement: Those systems with pertinent positive or pertinent negative responses have been documented in the HPI. ROS Other: All systems not noted in ROS Statement are negative. Past Medical History Past Medical History: Asthma, Coronary Artery Disease (CAD), Chest Pain / Angina, Diabetes Mellitus, GERD/Reflux, Hearing Disorder / Deafness, Hyperlipidemia, Hypertension Additional Past Medical History / Comment(s): IDDM. Hx chronic back pain, chronic pain syndrome. Neuropathy bilateral feet, [place]/uses hearing aids bilaterally. History of Any Multi-Drug Resistant Organisms: None Reported Past Surgical History: Heart Catheterization With Stent Additional Past Surgical History / Comment(s): trigger 2nd digit left hand 12-13-19, trigger finger release rt hand,Cervical fusion, back lami/injections, carpal tunnel surgery, colonoscopy/benign polypectomy. 3 stents placed 05/2021 Past Anesthesia/Blood Transfusion Reactions: No Reported Reaction Additional Past Anesthesia/Blood Transfusion Reaction / Comment(s): no problems with prior blood transfusion. Date of Last Stent Placement:: 2019 x1 stent Past Psychological History: No Psychological Hx Reported Smoking Status: Never smoker Past Alcohol Use History: None Reported Past Drug Use History: None Reported - Past Family History Father Family Medical History: Myocardial Infarction ([place]) Additional Family Medical History / Comment(s): Passed at age 72. Mother Family Medical History: Myocardial Infarction ([place]) Additional Family Medical History / Comment(s): Passed at age 77. Brother(s) Family Medical History: Myocardial Infarction ([place]) Additional Family Medical History / Comment(s): 3 brothers passed from [place] in 50's. Sister(s) Family Medical History: Myocardial Infarction ([place]) Additional Family Medical History / Comment(s): sister 50s General Exam Limitations: no limitations General appearance: alert, in no apparent distress Neck exam: Present: normal inspection Respiratory exam: Present: normal lung sounds bilaterally Cardiovascular Exam: Present: regular rate, normal rhythm GI/Abdominal exam: Present: soft Extremities exam: Present: other (Strength and Sensation equal and intact in bilateral lower extremities. Tenderness to palpation at the lateral right knee.) Neurological exam: Present: alert, oriented X3 Course Vital Signs 12/19/22 15:17 Temperature 97.6 F Pulse Rate 86 Respiratory 18 Rate Blood Pressure 151/80 O2 Sat by Pulse 97 Oximetry Medical Decision Making - Medical Decision Making Was pt. sent in by a medical professional or institution (Dr. PA, ENGINE LATHE SET UP OPERATOR, urgent care, hospital, or detention...) When possible be specific @ -No Did you speak to anyone other than the patient for history (EMS, parent, family, police, friend...)? What history was obtained from this source @ -No Did you review nursing and triage notes (agree or disagree)? Why? @ -I reviewed and agree with nursing and triage notes Were old charts reviewed (outside hosp., previous admission, EMS record, old EKG, old radiological studies, urgent care reports/EKG's, detention records)? Report findings @ -MAPs reviewed showing a prescription for Hannibal 10 with a quantity of twenty eight (28) prescribed on 12/1622. Additional prescription for Hannibal 10 written on 12/04/22 for thirty (30). Review of prior visit showed proximal fibular fracture. Differential Diagnosis (chest pain, altered mental status, abdominal pain women, abdominal pain men, vaginal bleeding, weakness, fever, dyspnea, syncope, headache, dizziness, GI bleed, back pain, seizure, CVA, palpatations, mental health, musculoskeletal)? @ -Differential Musculoskeletal Muscular strain, contusion, ligament sprain, fracture, arthritis, septic arthritis, bursitis, cellulitis, muscle spasm, nerve compression, DVT, arterial occlusion, herpes zoster, electrolyte abnormality, tumor.... This is not meant to be in all inclusive list EKG interpreted by me (3pts min.). @ -None X-rays interpreted by me (1pt min.). @ -None done CT interpreted by me (1pt min.). @ -None done U/S interpreted by me (1pt. min.). @ -None done What testing was considered but not performed or refused? (CT, X-rays, U/S, labs)? Why? @ -None What meds were considered but not given or refused? Why? @ -None Did you discuss the management of the patient with other professionals (professionals i.e. , PA, ENGINE LATHE SET UP OPERATOR, lab, RT, psych nurse, social work msw, engineer conductor, teacher, combat systems officer, field nurse case manager)? Give summary @ -Case discussed with Dr. Araujo, who advised no further interventions. Spoke to Amarilis Romo NP of [facility], who did not accept admission at this time for observation/pain control. Was smoking cessation discussed for >3mins.? @ -No Was critical care preformed (if so, how long)? @ -No Were there social determinants of health that impacted care today? How? (Homelessness, low income, unemployed, alcoholism, drug addiction, transportation, low edu. Level, literacy, decrease access to med. care, fdc, rehab)? @ -No Was there de-escalation of care discussed even if they declined (Discuss DNR or withdrawal of care, Hospice)? DNR status @ -No What co-morbidities impacted this encounter? (DM, HTN, Smoking, COPD, CAD, Cancer, CVA, ARF, Chemo, Hep., AIDS, mental health diagnosis, sleep apnea, morbid obesity)? @ -None Was patient admitted / discharged? Hospital course, mention meds given and route, prescriptions, significant lab abnormalities, going to OR and other pertinent info. @ -Discharge 77-year-old male presenting to the ED with a chief complaint of right knee pain. Imaging from prior visit did show proximal fibula fracture. At that time, Dr. Araujo reccomended no knee immobilizer and advised follow-up outpatient. Patient presented again with continued pain. No new injury or trauma. No incontinence or saddle anesthesia. Spoke to Dr. Araujo, who recommended no further interventions at this time. Review of MAPs shows patient has good amount of Hannibal 10 at home. Patient had improvement of pain with 4 mg IV here. Patient discharged home in stable condition. Discussed return precautions with patient and family who verbalizes agreement. Patient was offered knee immobilizer an Ang bandage for ankle. Undiagnosed new problem with uncertain prognosis? @ -No Drug Therapy requiring intensive monitoring for toxicity (Heparin, Nitro, Insulin, Cardizem)? @ -No Were any procedures done? @ -No Diagnosis/symptom? @ -Right proximal fibula fracture Acute, or Chronic, or Acute on Chronic? @ -Acute Uncomplicated (without systemic symptoms) or Complicated (systemic symptoms)? @ -Uncomplicated Side effects of treatment? @ -No Exacerbation, Progression, or Severe Exacerbation? @ -No Poses a threat to life or bodily function? How? (Chest pain, [place], [place], pneumonia, PE, COPD, DKA, ARF, appy, cholecystitis, CVA, Diverticulitis, Homicidal, Suicidal, threat to staff... and all critical care pts) @ -No Disposition Clinical Impression: Fracture, fibula, proximal Disposition: HOME SELF-CARE Prescriptions: HYDROcodone/APAP 5-325MG [Hannibal 5-325] 1 tab PO Q4HR PRN 3 Days #18 tab PRN Reason: Pain Is patient prescribed a controlled substance at d/c from ED?: No Referrals: Ashley Carvalho MD [Primary Care Provider] - 1-2 days Martin Araujo DO [Doctor of Osteopathic Medicine] - 1-2 days Time of Disposition: 16:59
[2022-12-19] MEDS ORDERED: ACET/COD 300 MG/30 MG STARTER PACK 6 TAB BTL PO STA (17:30)
[2022-12-19 18:20] VITALS: BP 126/76; PULSE 76; TEMP 98.1
== END 2022-12-19 18:13 | disposition home or self-care (01) ==
LOC: EC 15:02
DX: S82.401A Unspecified fracture of shaft of right fibula, initial encounter for closed fracture (principal); E78.5 Hyperlipidemia, unspecified; I10 Essential (primary) hypertension; J45.909 Unspecified asthma, uncomplicated; I25.10 Atherosclerotic heart disease of native coronary artery without angina pectoris; E11.40 Type 2 diabetes mellitus with diabetic neuropathy, unspecified; K21.9 Gastro-esophageal reflux disease without esophagitis; Z79.4 Long term (current) use of insulin; Z79.84 Long term (current) use of oral hypoglycemic drugs; Z79.82 Long term (current) use of aspirin; Z79.899 Other long term (current) drug therapy; W19.XXXA Unspecified fall, initial encounter
CPT/HCPCS: 99284; 96374; J2270

== ENCOUNTER 2023-04-07 09:23 | Inpatient (IN) | payer MEDICARE ==
--- NOTE | 2023-04-07 09:44 | ED ---
General Adult HPI - General Chief complaint: Chest Pain Stated complaint: Chest Pain Time Seen by Provider: 04/07/23 09:33 Source: patient, RN notes reviewed, old records reviewed Mode of arrival: ambulatory Limitations: no limitations - History of Present Illness Initial comments: 78-year-old male with history of CAD presenting for evaluation of chest pain which has been ongoing for the past several weeks. He reports this as central chest tightness and discomfort. No associated vomiting or diaphoresis. He states he has had multiple stents. - Related Data Home Medications Medication Instructions Recorded Confirmed glipiZIDE [Glucotrol] 10 mg PO DAILY 01/17/14 11/26/22 amLODIPine BESYLATE [Norvasc] 10 mg PO QAM 04/19/14 11/26/22 Aspirin EC [Ecotrin Low Dose] 81 mg PO DAILY 02/12/19 11/26/22 Cyanocobalamin (Vitamin B-12) 1,000 mcg PO DAILY 02/12/19 11/26/22 [Vitamin B-12] Insulin Glargine [Lantus Vial] 50 unit SQ HS 07/20/19 11/26/22 INSULIN LISPRO (humaLOG) [humaLOG] 35 units SQ AC-TID 01/09/20 11/26/22 Tamsulosin HCl [Flomax] 0.4 mg PO HS 01/09/20 11/26/22 Pregabalin [Lyrica] 150 mg PO BID 01/18/20 11/26/22 Atorvastatin [Lipitor] 40 mg PO DAILY 09/19/22 11/26/22 Isosorbide Mononitrate ER [Imdur] 60 mg PO QAM 09/19/22 11/26/22 Magnesium Oxide [Mag-Ox] 400 mg PO DAILY 09/19/22 11/26/22 Omeprazole [PriLOSEC] 20 mg PO AC-BID 11/21/22 11/26/22 Previous Rx's Medication Instructions Recorded metFORMIN HCL [Glucophage] 1,000 mg PO BID #0 10/18/17 Cyclobenzaprine [Flexeril] 5 mg PO TID #21 tablet 11/30/22 HYDROcodone/APAP 10-325MG [[place] 1 tab PO Q6HR PRN #24 tab 11/30/22 10-325] Ipratropium-Albuterol Nebulize 3 ml INHALATION RT-QID PRN each 11/30/22 [Duoneb 0.5 mg-3 mg/3 ml Soln] Pregabalin [Lyrica] 150 mg PO BID #24 cap 11/30/22 Sennosides/Docusate Sodium [Senna 1 each PO DAILY #20 capsule 11/30/22 Plus 8.6-50 mg Softgel] cefaDROXiL [Duricef] 500 mg PO Q12HR 5 Days #10 cap 11/30/22 predniSONE [Deltasone] 20 mg PO DAILY #0 tab 11/30/22 HYDROcodone/APAP 5-325MG [[place] 1 tab PO Q4HR PRN 3 Days #18 tab 12/19/22 5-325] Allergies Allergy/AdvReac Type Severity Reaction Status Date / Time No Known Allergies Allergy Verified 04/07/23 09:30 Review of Systems ROS Statement: Those systems with pertinent positive or pertinent negative responses have been documented in the HPI. ROS Other: All systems not noted in ROS Statement are negative. Past Medical History Past Medical History: Asthma, Coronary Artery Disease (CAD), Chest Pain / Angina, Diabetes Mellitus, GERD/Reflux, Hearing Disorder / Deafness, Hyperlipidemia, Hypertension Additional Past Medical History / Comment(s): IDDM. Hx chronic back pain, chronic pain syndrome. Neuropathy bilateral feet, [place]/uses hearing aids bilaterally. History of Any Multi-Drug Resistant Organisms: None Reported Past Surgical History: Heart Catheterization With Stent Additional Past Surgical History / Comment(s): trigger 2nd digit left hand 10-12-20, trigger finger release rt hand,Cervical fusion, back lami/injections, carpal tunnel surgery, colonoscopy/benign polypectomy. 3 stents placed 05/2021 Past Anesthesia/Blood Transfusion Reactions: No Reported Reaction Additional Past Anesthesia/Blood Transfusion Reaction / Comment(s): no problems with prior blood transfusion. Date of Last Stent Placement:: 2019 x1 stent Past Psychological History: No Psychological Hx Reported Smoking Status: Never smoker Past Alcohol Use History: None Reported Past Drug Use History: None Reported - Past Family History Father Family Medical History: Myocardial Infarction ([place]) Additional Family Medical History / Comment(s): Passed at age 72. Mother Family Medical History: Myocardial Infarction ([place]) Additional Family Medical History / Comment(s): Passed at age 77. Brother(s) Family Medical History: Myocardial Infarction ([place]) Additional Family Medical History / Comment(s): 3 brothers passed from [place] in 50's. Sister(s) Family Medical History: Myocardial Infarction ([place]) Additional Family Medical History / Comment(s): sister 50s General Exam Limitations: no limitations General appearance: alert, in no apparent distress Head exam: Present: atraumatic, normocephalic Eye exam: Present: normal appearance, PERRL ENT exam: Present: normal exam Neck exam: Present: normal inspection. Absent: tenderness, meningismus Respiratory exam: Present: normal lung sounds bilaterally. Absent: respiratory distress, wheezes Cardiovascular Exam: Present: regular rate, normal rhythm GI/Abdominal exam: Present: soft. Absent: distended, tenderness, guarding, rebound Extremities exam: Present: normal inspection, normal capillary refill. Absent: pedal edema Neurological exam: Present: alert, oriented X3, CN II-XII intact Skin exam: Present: warm, dry, intact Course Vital Signs 04/07/23 09:25 Temperature 98.2 F Pulse Rate 82 Respiratory 20 Rate Blood Pressure 150/67 O2 Sat by Pulse 97 Oximetry Medical Decision Making - Medical Decision Making Was pt. sent in by a medical professional or institution (, PA, [employer], urgent care, hospital, or custodial...) When possible be specific @ -No Did you speak to anyone other than the patient for history (EMS, parent, family, police, friend...)? What history was obtained from this source @ -No Did you review nursing and triage notes (agree or disagree)? Why? @ -I reviewed and agree with nursing and triage notes Were old charts reviewed (outside hosp., previous admission, EMS record, old EKG, old radiological studies, urgent care reports/EKG's, custodial records)? Report findings @ -No old charts were reviewed Differential Diagnosis (chest pain, altered mental status, abdominal pain women, abdominal pain men, vaginal bleeding, weakness, fever, dyspnea, syncope, headache, dizziness, GI bleed, back pain, seizure, CVA, palpatations, mental health, musculoskeletal)? @ -Differential Chest Pain: Stable Angina, Unstable Angina, STEMI, NSTEMI Aortic Dissection, Pneumothorax, Musculoskeletal, Esophageal Spasm GERD, Cholecystitis, Pancreatitis, Zoster, this is not meant to be an all-inclusive list. EKG interpreted by me (3pts min.). @EKG: Sinus rhythm rate of 85, IN interval 186, QRS duration 92, QTc [address] segment changes. X-rays interpreted by me (1pt min.). @ -[Chest x-ray negative for acute cardiopulmonary disease CT interpreted by me (1pt min.). @ -None done U/S interpreted by me (1pt. min.). @ -None done What testing was considered but not performed or refused? (CT, X-rays, U/S, labs)? Why? @ -None What meds were considered but not given or refused? Why? @ -None Did you discuss the management of the patient with other professionals (professionals i.e. , PA, [employer], lab, RT, psych nurse, social insurance adviser, immigration lawyer, teacher, special skills officer, child welfare caseworker)? Give summary @EMH Was smoking cessation discussed for >3mins.? @ -No Was critical care preformed (if so, how long)? @ -No Were there social determinants of health that impacted care today? How? (Homelessness, low income, unemployed, alcoholism, drug addiction, transportation, low edu. Level, literacy, decrease access to med. care, fci, rehab)? @ -No Was there de-escalation of care discussed even if they declined (Discuss DNR or withdrawal of care, Hospice)? DNR status @ -No What co-morbidities impacted this encounter? (DM, HTN, Smoking, COPD, CAD, Cancer, CVA, ARF, Chemo, Hep., AIDS, mental health diagnosis, sleep apnea, morbid obesity)? @ -[Hypertension, CAD Was patient admitted / discharged? Hospital course, mention meds given and route, prescriptions, significant lab abnormalities, going to OR and other pertinent info. @ -78-year-old male with intermittent increasing central chest pressure and pain. EKG sinus rhythm without ST segment elevation. Chest x-ray is clear. He has anemia which is improved from prior, otherwise normal laboratory testing including negative troponin. Patient will be observed for serial cardiac enzymes, telemetry, cardiology consultation. Undiagnosed new problem with uncertain prognosis? @ -No Drug Therapy requiring intensive monitoring for toxicity (Heparin, Nitro, Insuli n, Cardizem)? @ -No Were any procedures done? @ -No Diagnosis/symptom? @ -Chest pain rule out Acute, or Chronic, or Acute on Chronic? @ -[Acute Uncomplicated (without systemic symptoms) or Complicated (systemic symptoms)? @ -Default Side effects of treatment? @ -No Exacerbation, Progression, or Severe Exacerbation? @ -No Poses a threat to life or bodily function? How? (Chest pain, [place], [place], pneumonia, PE, COPD, DKA, ARF, appy, cholecystitis, CVA, Diverticulitis, Homicidal, Suicidal, threat to staff... and all critical care pts) @yes, chest pain - Lab Data Result diagrams: 04/07/23 10:11 04/07/23 10:11 Lab Results 04/07/23 04/07/23 04/07/23 Range/Units 10:11 10:11 10:11 WBC 8.6 (3.8-10.6) k/uL RBC 4.59 (4.30-5.90) m/uL Hgb 11.8 L (13.0-17.5) gm/dL Hct 36.0 L (39.0-53.0) % MCV 78.5 L (80.0-100.0) fL MCH 25.7 (25.0-35.0) pg MCHC 32.7 (31.0-37.0) g/dL RDW 16.8 H (11.5-15.5) % Plt Count 288 (150-450) k/uL MPV 7.4 Neutrophils % 62 % Lymphocytes % 20 % Monocytes % 7 % Eosinophils % 7 % Basophils % 1 % Neutrophils # 5.3 (1.3-7.7) k/uL Lymphocytes # 1.7 (1.0-4.8) k/uL Monocytes # 0.6 (0-1.0) k/uL Eosinophils # 0.6 (0-0.7) k/uL Basophils # 0.1 (0-0.2) k/uL Hypochromasia Slight Anisocytosis Slight Microcytosis Slight PT 10.3 (10.0-12.5) sec INR 0.9 (<1.2) APTT 24.0 (22.0-30.0) sec Sodium 138 (137-145) mmol/L Potassium 4.4 (3.5-5.1) mmol/L Chloride 104 (98-107) mmol/L Carbon Dioxide 22 (22-30) mmol/L Anion Gap 12 mmol/L BUN 22 H (9-20) mg/dL Creatinine 1.11 (0.66-1.25) mg/dL Est GFR (CKD-EPI)AfAm 73 (>60 ml/min/1.73 sqM) Est GFR (CKD-EPI)NonAf 63 (>60 ml/min/1.73 sqM) Glucose 220 H (74-99) mg/dL Calcium 9.2 (8.4-10.2) mg/dL Magnesium 1.4 L (1.6-2.3) mg/dL Total Bilirubin 0.5 (0.2-1.3) mg/dL AST 21 (17-59) U/L ALT 24 (4-49) U/L Alkaline Phosphatase 116 (38-126) U/L Troponin I (0.000-0.034) ng/mL NT-Pro-B Natriuret Pep 140 pg/mL Total Protein 7.6 (6.3-8.2) g/dL Albumin 4.4 (3.5-5.0) g/dL Lipase 79 (23-300) U/L 04/07/23 Range/Units 10:11 WBC (3.8-10.6) k/uL RBC (4.30-5.90) m/uL Hgb (13.0-17.5) gm/dL Hct (39.0-53.0) % MCV (80.0-100.0) fL MCH (25.0-35.0) pg MCHC (31.0-37.0) g/dL RDW (11.5-15.5) % Plt Count (150-450) k/uL MPV Neutrophils % % Lymphocytes % % Monocytes % % Eosinophils % % Basophils % % Neutrophils # (1.3-7.7) k/uL Lymphocytes # (1.0-4.8) k/uL Monocytes # (0-1.0) k/uL Eosinophils # (0-0.7) k/uL Basophils # (0-0.2) k/uL Hypochromasia Anisocytosis Microcytosis PT (10.0-12.5) sec INR (<1.2) APTT (22.0-30.0) sec Sodium (137-145) mmol/L Potassium (3.5-5.1) mmol/L Chloride (98-107) mmol/L Carbon Dioxide (22-30) mmol/L Anion Gap mmol/L BUN (9-20) mg/dL Creatinine (0.66-1.25) mg/dL Est GFR (CKD-EPI)AfAm (>60 ml/min/1.73 sqM) Est GFR (CKD-EPI)NonAf (>60 ml/min/1.73 sqM) Glucose (74-99) mg/dL Calcium (8.4-10.2) mg/dL Magnesium (1.6-2.3) mg/dL Total Bilirubin (0.2-1.3) mg/dL AST (17-59) U/L ALT (4-49) U/L Alkaline Phosphatase (38-126) U/L Troponin I <0.012 (0.000-0.034) ng/mL NT-Pro-B Natriuret Pep pg/mL Total Protein (6.3-8.2) g/dL Albumin (3.5-5.0) g/dL Lipase (23-300) U/L Disposition Clinical Impression: Chest pain Disposition: ADMITTED IP TO THIS HOSP Condition: Stable Is patient prescribed a controlled substance at d/c from ED?: No Referrals: Ashley Carvalho MD [Primary Care Provider] - 1-2 days Time of Disposition: 11:19
--- NOTE | 2023-04-07 10:12 | XR ---
EXAMINATION TYPE: XR chest 2V DATE OF EXAM: 04/07/2023 9:59 AM CLINICAL INDICATION:Male, 78 years old with history of Chest Pain; COMPARISON: Chest radiographs from 11/29/2022. TECHNIQUE: XR chest 2V Frontal and lateral views of the chest. FINDINGS: Lungs/Pleura: There is no evidence of pleural effusion, focal consolidation, or pneumothorax. Pulmonary vascularity: Unremarkable. Heart/mediastinum: Cardiomediastinal silhouette is unremarkable. Musculoskeletal: No acute osseous pathology. There is fixation hardware in the lower cervical spine a nd lumbar. Other findings: None IMPRESSION: No acute cardiopulmonary disease/process.
[2023-04-07 10:25] LABS: Anisocytosis Slight; Basophils # (A) 0.1 k/uL (0-0.2); Basophils % (A) 1 %; Eosinophils # (A) 0.6 k/uL (0-0.7); Eosinophils % (A) 7 %; HGB 11.8 gm/dL (13.0-17.5); Hypochromasia Slight; Lymphocytes # (A) 1.7 k/uL (1.0-4.8); Lymphocytes % (A) 20 %; MCH 25.7 pg (25.0-35.0); MCHC 32.7 g/dL (31.0-37.0); MCV 78.5 fL (80.0-100.0); Mean Platelet Volume 7.4; Microcytosis Slight; Monocytes # (A) 0.6 k/uL (0-1.0); Monocytes % (A) 7 %; Neutrophils # (A) 5.3 k/uL (1.3-7.7); Neutrophils % (A) 62 %; Platelet Count 288 k/uL (150-450); RBC 4.59 m/uL (4.30-5.90); RDW 16.8 % (11.5-15.5); WBC 8.6 k/uL (3.8-10.6)
[2023-04-07 10:36] LABS: INR 0.9 (<1.2); Prothrombin Time 10.3 sec (10.0-12.5)
[2023-04-07 10:52] LABS: ALT 24 U/L (4-49); AST 21 U/L (17-59); African American GFR (CKD) 73 (>60 ml/min/1.73 sqM); Albumin 4.4 g/dL (3.5-5.0); Alkaline Phosphatase 116 U/L (38-126); Anion Gap 12 mmol/L; Blood Urea Nitrogen 22 mg/dL (9-20); Calcium 9.2 mg/dL (8.4-10.2); Carbon Dioxide 22 mmol/L (22-30); Chloride 104 mmol/L (98-107); Glucose 220 mg/dL (74-99); Lipase 79 U/L (23-300); Magnesium 1.4 mg/dL (1.6-2.3); Non-African American GFR(CKD) 63 (>60 ml/min/1.73 sqM); Potassium 4.4 mmol/L (3.5-5.1); Sodium 138 mmol/L (137-145); Total Bilirubin 0.5 mg/dL (0.2-1.3); Total Protein 7.6 g/dL (6.3-8.2)
[2023-04-07 11:00] LABS: NT-Pro-B-Type Natriuretic Pept 140 pg/mL
[2023-04-07] MEDS ORDERED: ACETAMINOPHEN TAB 325 MG TAB PO PRN (11:16)
[2023-04-07] MEDS ORDERED: NALOXONE 0.4 MG/ML 1 ML VIAL IV PRN (11:16)
[2023-04-07] MEDS: ASPIRIN 325 MG TAB PO STA (11:33)
[2023-04-07] MEDS ORDERED: Magnesium Replacement Protocol 1 EACH MISC MISCELLANE PRN (13:16)
--- NOTE | 2023-04-07 13:21 | P.HPIM ---
History of Present Illness this is a pleasant 78 years old male with multiple medical problems Patient presents because of chest pain which was going on for a few weeks on and off It's in the lower sternal area on radiating about 2/10 in severity course also was some tenderness in the left lower ribs felt like pressure or burning. No change in urine or bowel habits. No headache dizziness weakness numbness. Patient denies smoking alcohol or illicit drugs. He had back surgery about 5 months ago, currently using her walker. Surgeon was Dr. Robe jay. His vitals are stable Labs from showing unremarkable CBC except for mild anemia with hemoglobin 11.8 and BMP and liver enzymes were unremarkable. Creatinine 1.1 and beyond is elevated at 22. Magnesium level I.4 Chest x-rays negative for acute process EKG shows sinus rhythm at [address]-T changes Review of Systems Review of systems CONSTITUTIONAL: No fever, no malaise, no fatigue. HEENT: No recent visual problems or hearing problems. Denied any sore throat. CARDIOVASCULAR: No orthopnea, PND, no palpitations, no syncope. PULMONARY: No shortness of breath, no cough, no hemoptysis. GASTROINTESTINAL: No diarrhea, no nausea, no vomiting, no abdominal pain. Normoactive bowel sounds. NEUROLOGICAL: No headaches, no weakness, no numbness. HEMATOLOGICAL: Denies any bleeding or petechiae. GENITOURINARY: Denies any burning micturition, frequency, or urgency. MUSCULOSKELETAL/RHEUMATOLOGICAL: Denies any joint pain, swelling, or any muscle pain. ENDOCRINE: Denies any polyuria or polydipsia. Past Medical History Past Medical History: Asthma, Coronary Artery Disease (CAD), Chest Pain / Angina, Diabetes Mellitus, GERD/Reflux, Hearing Disorder / Deafness, Hyperlipidemia, Hypertension Additional Past Medical History / Comment(s): IDDM. Hx chronic back pain, chronic pain syndrome. Neuropathy bilateral feet, [place]/uses hearing aids bilaterally. History of Any Multi-Drug Resistant Organisms: None Reported Past Surgical History: Heart Catheterization With Stent Additional Past Surgical History / Comment(s): trigger 2nd digit left hand 12-13-19, trigger finger release rt hand,Cervical fusion, back lami/injections, carpal tunnel surgery, colonoscopy/benign polypectomy. 3 stents placed 05/2021 Past Anesthesia/Blood Transfusion Reactions: No Reported Reaction Additional Past Anesthesia/Blood Transfusion Reaction / Comment(s): no problems with prior blood transfusion. Date of Last Stent Placement:: 2019 x1 stent Past Psychological History: No Psychological Hx Reported Smoking Status: Never smoker Past Alcohol Use History: None Reported Past Drug Use History: None Reported - Past Family History Father Family Medical History: Myocardial Infarction ([place]) Additional Family Medical History / Comment(s): Passed at age 72. Mother Family Medical History: Myocardial Infarction ([place]) Additional Family Medical History / Comment(s): Passed at age 77. Brother(s) Family Medical History: Myocardial Infarction ([place]) Additional Family Medical History / Comment(s): 3 brothers passed from [place] in 50's. Sister(s) Family Medical History: Myocardial Infarction ([place]) Additional Family Medical History / Comment(s): sister 50s Medications and Allergies Home Medications Medication Instructions Recorded Confirmed Type glipiZIDE [Glucotrol] 10 mg PO DAILY 01/17/14 04/07/23 History amLODIPine BESYLATE [Norvasc] 10 mg PO DAILY 04/19/14 04/07/23 History metFORMIN HCL [Glucophage] 1,000 mg PO BID #0 10/18/17 04/07/23 Rx Aspirin EC [Ecotrin Low Dose] 81 mg PO DAILY 02/12/19 04/07/23 History Cyanocobalamin (Vitamin B-12) 1,000 mcg PO DAILY 02/12/19 04/07/23 History [Vitamin B-12] Insulin Glargine [Lantus Vial] 70 unit SQ HS 07/20/19 04/07/23 History INSULIN LISPRO (humaLOG) [humaLOG] 20 units SQ AC-TID 01/09/20 04/07/23 History Tamsulosin HCl [Flomax] 0.4 mg PO HS 01/09/20 04/07/23 History Atorvastatin [Lipitor] 40 mg PO DAILY 09/19/22 04/07/23 History Isosorbide Mononitrate ER [Imdur] 60 mg PO DAILY 09/19/22 04/07/23 History Magnesium Oxide [Mag-Ox] 400 mg PO DAILY 09/19/22 04/07/23 History Omeprazole [PriLOSEC] 20 mg PO AC-BID 11/21/22 04/07/23 History Ipratropium-Albuterol Nebulize 3 ml INHALATION RT-QID PRN each 11/30/22 04/07/23 Rx [Duoneb 0.5 mg-3 mg/3 ml Soln] Pregabalin [Lyrica] 150 mg PO BID #24 cap 11/30/22 04/07/23 Rx Cyclobenzaprine [Flexeril] 10 mg PO TID PRN 04/07/23 04/07/23 History Sennosides/Docusate Sodium [Senna 1 cap PO DAILY PRN 04/07/23 04/07/23 History Plus 8.6-50 mg Softgel] Valsartan [Diovan] 40 mg PO DAILY 04/07/23 04/07/23 History Allergies Allergy/AdvReac Type Severity Reaction Status Date / Time No Known Allergies Allergy Verified 04/07/23 12:17 Physical Exam Vitals: Vital Signs Temp Pulse Resp BP Pulse Ox 04/07/23 12:00 80 18 148/67 97 04/07/23 09:25 98.2 F 82 20 150/67 97 Intake and Output 04/06/23 04/07/23 04/07/23 22:59 06:59 14:59 Other: Weight 90.718 kg GENERAL: The patient is alert and oriented x3, not in any acute distress. Well developed, well nourished. HEENT: Pupils are round and equally reacting to light. EOMI. No scleral icterus. No conjunctival pallor. Normocephalic, atraumatic. No pharyngeal erythema. No thyromegaly. CARDIOVASCULAR: S1 and S2 present. No murmurs, rubs, or gallops. -PULMONARY: Chest is clear to auscultation, no wheezing , no crackles. tenderness in the lower rib on the left side ABDOMEN: Soft, nontender, nondistended, normoactive bowel sounds. No palpable organomegaly. MUSCULOSKELETAL: No joint swelling or deformity. EXTREMITIES: No cyanosis, clubbing, or pedal edema. NEUROLOGICAL: Gross neurological examination did not reveal any focal deficits. SKIN: No rashes. no petechiae. Results CBC & Chem 7: 04/07/23 10:11 04/07/23 10:11 Labs: Abnormal Lab Results - Last 24 Hours (Table) 04/07/23 04/07/23 Range/Units 10:11 10:11 Hgb 11.8 L (13.0-17.5) gm/dL Hct 36.0 L (39.0-53.0) % MCV 78.5 L (80.0-100.0) fL RDW 16.8 H (11.5-15.5) % BUN 22 H (9-20) mg/dL Glucose 220 H (74-99) mg/dL Magnesium 1.4 L (1.6-2.3) mg/dL Assessment and Plan Assessment: Chest pain, rule out cardiac causes recetn history of back surgery about five months ago Asthma h/of Coronary Artery Disease Diabetes Mellitus h/o GERD/Reflux Hearing Disorder / Deafness Hyperlipidemia Hypertension Plan: we do serial troponin cardiology consult c/w aspirin replace magnesium and monitor level Patient already followed up with Dr. Araujo he is going to see him also for Follow-up which intense to go Labs and medication were reviewed.. Continue same treatment. Continue with symptomatic treatment. Resume home medication. Monitor labs and vitals. DVT and GI prophylaxis. Further recommendations as per clinical course of the patient DVT prophylaxis: Subcutaneous heparin GI Prophylaxis: Pepcid Prognosis is guarded
--- NOTE | 2023-04-07 13:47 | P.CRDCN ---
History of Present Illness Consult date: 04/07/23 History of present illness: History of Present Illness: The patient is a 78-year-old male with known history of hypertension tension, hyperlipidemia, diabetes, CAD, status post stenting of the RCA and left circumflex who presents with chest discomfort. Patient has underwent back surgery in November 2022. This morning he woke up to go to physical therapy when he had some discomfort in the chest, not respirophasic nor positional. According to him it reminds him somewhat of his prior cardiac symptoms but not exactly. He continues to have back discomfort, worse with position and breathing. He denied any change in his breathing today, no palpitations, dizziness or syncope. He has mild edema. He has no PND or orthopnea. In the emergency room his cardiac enzymes were unremarkable and he had no acute ST segment changes. He underwent stenting of the left circumflex obtuse marginal branch in July 2020 in the proximal RCA in April 2021. He has been relatively stable since that time. Medications: Metformin, Glucotrol, Norvasc 10 mg daily, Diovan 40 mg daily, Flomax, Prilosec, isosorbide 60 mg daily, insulin, Lipitor 40 mg daily, aspirin once a day Review of Systems: Respiratory: No history of asthma, bronchitis or recent cough. GI: No nausea or vomiting . No history of peptic ulcer disease. No recent GI bleed. : No hematuria or dysuria. Nervous System: No stroke or seizure. Physical Examination: 78-year-old male, alert oriented no apparent distress,Blood pressure 148/67, Heart rate 80 Head: Normocephalic. Eyes: Sclerae nonicteric. Neck: Good carotid upstroke, no bruit, no jugular venous distention. Lungs: Clear to auscultation. Heart: Regular rate and rhythm, S1-S2, no S3, no rub. Systolic ejection murmur. Abdomen: Soft nontender, positive bowel sounds no organomegaly. Extremities: No edema, intact distal pulses. Labs: Hemoglobin 11.8, potassium 4.4, BUN 22, creatinine 1.1. Troponin less than 0.012. Chest x-ray with no abnormalities EKG: Sinus mechanism with minor nonspecific ST-T wave changes Impression: 1. Chest discomfort of unclear etiology in a patient with known history of CAD 2. History of hypertension 3. History of hyperlipidemia 4. History of diabetes 5. History of back discomfort and recent surgery Plan: 1. Continue present therapy 2. Obtain an echocardiogram with Doppler 3. Obtain a pharmacological stress test tomorrow 4. If there is no evidence of stress-induced ischemia, no further cardiac wor kup will be needed 5. Thank you for this consult we will follow with you Past Medical History Past Medical History: Asthma, Coronary Artery Disease (CAD), Chest Pain / Angina, Diabetes Mellitus, GERD/Reflux, Hearing Disorder / Deafness, Hyperlipidemia, Hypertension Additional Past Medical History / Comment(s): IDDM. Hx chronic back pain, chronic pain syndrome. Neuropathy bilateral feet, MINTO/uses hearing aids bilaterally. History of Any Multi-Drug Resistant Organisms: None Reported Past Surgical History: Heart Catheterization With Stent Additional Past Surgical History / Comment(s): trigger 2nd digit left hand 12-13-19, trigger finger release rt hand,Cervical fusion, back lami/injections, carpal tunnel surgery, colonoscopy/benign polypectomy. 3 stents placed 05/2021 Past Anesthesia/Blood Transfusion Reactions: No Reported Reaction Additional Past Anesthesia/Blood Transfusion Reaction / Comment(s): no problems with prior blood transfusion. Date of Last Stent Placement:: 2019 x1 stent Past Psychological History: No Psychological Hx Reported Smoking Status: Never smoker Past Alcohol Use History: None Reported Past Drug Use History: None Reported - Past Family History Father Family Medical History: Myocardial Infarction (VT) Additional Family Medical History / Comment(s): Passed at age 72. Mother Family Medical History: Myocardial Infarction (VT) Additional Family Medical History / Comment(s): Passed at age 77. Brother(s) Family Medical History: Myocardial Infarction (VT) Additional Family Medical History / Comment(s): 3 brothers passed from VT in 50's. Sister(s) Family Medical History: Myocardial Infarction (VT) Additional Family Medical History / Comment(s): sister 50s Medications and Allergies Home Medications Medication Instructions Recorded Confirmed Type glipiZIDE [Glucotrol] 10 mg PO DAILY 01/17/14 04/07/23 History amLODIPine BESYLATE [Norvasc] 10 mg PO DAILY 04/19/14 04/07/23 History metFORMIN HCL [Glucophage] 1,000 mg PO BID #0 10/18/17 04/07/23 Rx Aspirin EC [Ecotrin Low Dose] 81 mg PO DAILY 02/12/19 04/07/23 History Cyanocobalamin (Vitamin B-12) 1,000 mcg PO DAILY 02/12/19 04/07/23 History [Vitamin B-12] Insulin Glargine [Lantus Vial] 70 unit SQ HS 07/20/19 04/07/23 History INSULIN LISPRO (humaLOG) [humaLOG] 20 units SQ AC-TID 01/09/20 04/07/23 History Tamsulosin HCl [Flomax] 0.4 mg PO HS 01/09/20 04/07/23 History Atorvastatin [Lipitor] 40 mg PO DAILY 09/19/22 04/07/23 History Isosorbide Mononitrate ER [Imdur] 60 mg PO DAILY 09/19/22 04/07/23 History Magnesium Oxide [Mag-Ox] 400 mg PO DAILY 09/19/22 04/07/23 History Omeprazole [PriLOSEC] 20 mg PO AC-BID 11/21/22 04/07/23 History Ipratropium-Albuterol Nebulize 3 ml INHALATION RT-QID PRN each 11/30/22 04/07/23 Rx [Duoneb 0.5 mg-3 mg/3 ml Soln] Pregabalin [Lyrica] 150 mg PO BID #24 cap 11/30/22 04/07/23 Rx Cyclobenzaprine [Flexeril] 10 mg PO TID PRN 04/07/23 04/07/23 History Sennosides/Docusate Sodium [Senna 1 cap PO DAILY PRN 04/07/23 04/07/23 History Plus 8.6-50 mg Softgel] Valsartan [Diovan] 40 mg PO DAILY 04/07/23 04/07/23 History Allergies Allergy/AdvReac Type Severity Reaction Status Date / Time No Known Allergies Allergy Verified 04/07/23 12:17 Physical Exam Vitals: Vital Signs Temp Pulse Resp BP Pulse Ox 04/07/23 12:00 80 18 148/67 97 04/07/23 09:25 98.2 F 82 20 150/67 97 Intake and Output 04/06/23 04/07/23 04/07/23 22:59 06:59 14:59 Other: Weight 90.718 kg Results 04/07/23 10:11 04/07/23 10:11 Cardiac Enzymes 04/07/23 04/07/23 04/07/23 Range/Units 10:11 10:11 12:18 AST 21 (17-59) U/L Troponin I <0.012 <0.012 (0.000-0.034) ng/mL Coagulation 04/07/23 Range/Units 10:11 PT 10.3 (10.0-12.5) sec APTT 24.0 (22.0-30.0) sec CBC 04/07/23 Range/Units 10:11 WBC 8.6 (3.8-10.6) k/uL RBC 4.59 (4.30-5.90) m/uL Hgb 11.8 L (13.0-17.5) gm/dL Hct 36.0 L (39.0-53.0) % Plt Count 288 (150-450) k/uL Comprehensive Metabolic Panel 04/07/23 Range/Units 10:11 Sodium 138 (137-145) mmol/L Potassium 4.4 (3.5-5.1) mmol/L Chloride 104 (98-107) mmol/L Carbon Dioxide 22 (22-30) mmol/L BUN 22 H (9-20) mg/dL Creatinine 1.11 (0.66-1.25) mg/dL Glucose 220 H (74-99) mg/dL Calcium 9.2 (8.4-10.2) mg/dL AST 21 (17-59) U/L ALT 24 (4-49) U/L Alkaline Phosphatase 116 (38-126) U/L Total Protein 7.6 (6.3-8.2) g/dL Albumin 4.4 (3.5-5.0) g/dL Current Medications Generic Name Dose Route Start Last Admin Trade Name Freq PRN Reason Stop Dose Admin Acetaminophen 650 mg 04/07/23 11:16 Acetaminophen Tab 325 Mg Tab PO Q6HR PRN Mild Pain or Fever > 100.5 Miscellaneous Information 1 each 04/07/23 13:16 Magnesium Replacement Protocol 1 Each Misc MISCELLANE DAILY PRN Per Protocol Protocol Naloxone HCl 0.2 mg 04/07/23 11:16 Naloxone 0.4 Mg/Ml 1 Ml Vial IV Q2M PRN Opioid Reversal Intake and Output 04/06/23 04/07/23 04/07/23 22:59 06:59 14:59 Other: Weight 90.718 kg Patient Weight 04/08/23 06:59 Weight 90.718 kg 04/07/23 10:11 04/07/23 10:11
[2023-04-07] MEDS ORDERED: AMINOPHYLLINE 500 MG/20 ML VIAL IV PRN (13:48)
[2023-04-07] MEDS ORDERED: CAFFEINE CITRATE 60 MG/3 ML VIAL IV PRN (13:48)
[2023-04-07] MEDS ORDERED: REGADENOSON 0.4 MG/5 ML SYRINGE IV PRN (13:48)
[2023-04-07] MEDS: METOPROLOL TARTRATE 25 MG TAB PO SCH (14:05)
[2023-04-08 06:33] LABS: African American GFR (CKD) 82 (>60 ml/min/1.73 sqM); Anion Gap 7 mmol/L; Blood Urea Nitrogen 18 mg/dL (9-20); Calcium 9.5 mg/dL (8.4-10.2); Carbon Dioxide 29 mmol/L (22-30); Chloride 104 mmol/L (98-107); Glucose 155 mg/dL (74-99); Magnesium 1.6 mg/dL (1.6-2.3); Non-African American GFR(CKD) 71 (>60 ml/min/1.73 sqM); Potassium 4.5 mmol/L (3.5-5.1); Sodium 140 mmol/L (137-145)
--- NOTE | 2023-04-08 10:39 | P.PN ---
Subjective Progress Note Date: 04/08/23 History of Present Illness: The patient is a 78-year-old male with known history of hypertension tension, hyperlipidemia, diabetes, CAD, status post stenting of the RCA and left circumflex who presents with chest discomfort. Patient has underwent back surgery in November 2022. This morning he woke up to go to physical therapy when he had some discomfort in the chest, not respirophasic nor positional. According to him it reminds him somewhat of his prior cardiac symptoms but not exactly. He continues to have back discomfort, worse with position and breathing. He denied any change in his breathing today, no palpitations, dizziness or syncope. He has mild edema. He has no PND or orthopnea. In the emergency room his cardiac enzymes were unremarkable and he had no acute ST segment changes. He underwent stenting of the left circumflex obtuse marginal branch in July 2020 in the proximal RCA in April 2021. He has been relatively stable since that time. Medications: Metformin, Glucotrol, Norvasc 10 mg daily, Diovan 40 mg daily, Flomax, Prilosec, isosorbide 60 mg daily, insulin, Lipitor 40 mg daily, aspirin once a day Labs: Hemoglobin 11.8, potassium 4.4, BUN 22, creatinine 1.1. Troponin less than 0.012. Chest x-ray with no abnormalities EKG: Sinus mechanism with minor nonspecific ST-T wave changes 2/6 Patient is seen today in follow-up on the observation unit. He he denies having any chest pain. He is scheduled for Lexiscan stress test and echocardiogram is being performed at this time. Blood pressure 149/75, heart rate 69, pulse ox 97% on room air. Repeat BMP is within normal limits except for glucose of 155. Magnesium 1.6. Physical Examination: 78-year-old male, alert oriented no apparent distress,Blood pressure 148/67, Heart rate 80 Head: Normocephalic. Eyes: Sclerae nonicteric. Neck: Good carotid upstroke, no bruit, no jugular venous distention. Lungs: Clear to auscultation. Heart: Regular rate and rhythm, S1-S2, no S3, no rub. Systolic ejection murmur. Abdomen: Soft nontender, positive bowel sounds no organomegaly. Extremities: No edema, intact distal pulses. Impression: 1. Chest discomfort of unclear etiology in a patient with known history of CAD 2. History of hypertension 3. History of hyperlipidemia 4. History of diabetes 5. History of back discomfort and recent surgery Plan: 1. Continue present therapy 2. Obtain an echocardiogram with Doppler report 3. Obtain a pharmacological stress test 4. If there is no evidence of stress-induced ischemia, no further cardiac workup will be needed 5. Increase Norvasc to 10 mg daily Nurse practitioner note has been reviewed, I agree with documented findings and plan of care. Patient was seen and examined. Objective - Vital Signs Vital signs: Vital Signs Temp 97.9 F 04/08/23 07:00 Pulse 69 04/08/23 07:00 Resp 16 04/08/23 07:00 BP 149/75 04/08/23 07:00 Pulse Ox 97 04/08/23 07:00 FiO2 Intake & Output 04/07/23 04/08/23 04/08/23 18:59 06:59 18:59 Weight 90.718 kg Other: # Voids 1 - Labs CBC & Chem 7: 04/07/23 10:11 04/08/23 05:49 Labs: Abnormal Lab Results - Last 24 Hours (Table) 04/07/23 04/07/23 04/08/23 Range/Units 10:11 10:11 05:49 Hgb 11.8 L (13.0-17.5) gm/dL Hct 36.0 L (39.0-53.0) % MCV 78.5 L (80.0-100.0) fL RDW 16.8 H (11.5-15.5) % BUN 22 H (9-20) mg/dL Glucose 220 H 155 H (74-99) mg/dL Magnesium 1.4 L (1.6-2.3) mg/dL
[2023-04-08] MEDS: ASPIRIN 81 MG PO SCH (10:51)
[2023-04-08] MEDS: ISOSORBIDE MONONITRATE ER 60 MG TAB.ER.24H PO SCH (10:51)
[2023-04-08] MEDS: ATORVASTATIN 40 MG TAB PO SCH (10:51)
[2023-04-08] MEDS: FAMOTIDINE 20 MG/2 ML VIAL IV SCH (10:51)
[2023-04-08] MEDS: amLODIPine 10 MG TAB PO SCH (10:51)
[2023-04-08] MEDS: VALSARTAN 40 MG TAB PO SCH (10:51)
[2023-04-08] MEDS: HEPARIN SODIUM,PORCINE 5,000 UNIT/ML 1 ML VIAL SQ SCH (10:52)
--- NOTE | 2023-04-08 11:27 | NM ---
EXAMINATION TYPE: NM stress lexiscan cardiolite DATE OF EXAM: 04/08/2023 COMPARISON: NONE CLINICAL INDICATION: Male, 78 years old with history of chest pain; TECHNIQUE: After the intravenous administration of 10.5 mCi Tc 99m Sestamibi - Cardiolite resting SP ECT images acquired 45 minutes post injection. The patient received 0.4mg Lexiscan, 25.4 mCi Tc 99m Sestamibi - Stress images obtained [address] injection FINDINGS: Review of stress and rest SPECT images demonstrates Small area of apical lateral reversible ischemia. Gated analysis shows normal wall motion with an estimated left ventricular ejection fraction of 71 %. IMPRESSION: Small area of apical lateral reversible ischemia
[2023-04-08] MEDS ORDERED: NITROGLYCERIN SL TABS 0.4 MG TAB SUBLINGUAL PRN (12:06)
[2023-04-08] MEDS ORDERED: ALPRAZolam 0.5 MG TAB PO PRN (12:06)
[2023-04-08] MEDS ORDERED: ALPRAZolam 0.25 MG TAB PO PRN (12:06)
--- NOTE | 2023-04-08 12:22 | CA ---
Transthoracic Echo Report Name: Primitivo Benjamin Age: 78 Gender: M : 1945 Exam Date: 04/08/2023 07:37 Exam Location: [facility] Ht (in): 69 Wt (lb): 200 Ordering Physician: Ree Aranda MD ([id number]) Attending/Referring Phys: Manager Secondary Gary Zimmerman RDCS Procedure CPT: Indications: CAD Cardiac Hx: Technical Quality: Fair Contrast 1: Total Dose (mL): Contrast 2: Total Dose (mL): MEASUREMENTS (Male / Female) Normal Values 2D ECHO LV Diastolic Diameter PLAX 4.0 cm 4.2 - 5.9 / 3.9 - 5.3 cm LV Systolic Diameter PLAX 3.6 cm IVS Diastolic Thickness 1.1 cm 0.6 - 1.0 / 0.6 - 0.9 cm LVPW Diastolic Thickness 1.0 cm 0.6 - 1.0 / 0.6 - 0.9 cm LV Relative Wall Thickness 0.5 Aortic Root Diameter 3.6 cm LA Systolic Diameter LX 4.6 cm 3.0 - 4.0 / 2.7 - 3.8 cm DOPPLER AV Peak Velocity 164.5 cm/s AV Peak Gradient 10.8 mmHg LVOT Peak Velocity 102.4 cm/s LVOT Peak Gradient 4.2 mmHg Mitral E Point Velocity 110.1 cm/s Mitral A Point Velocity 119.5 cm/s Mitral E to A Ratio 0.9 MV Deceleration Time 267.8 ms MV E' Velocity 6.4 cm/s Mitral E to MV E' Ratio 17.2 PV Peak Velocity 83.5 cm/s PV Peak Gradient 2.8 mmHg FINDINGS Left Ventricle Left ventricular ejection fraction is estimated at 55-60 %.left ventricular cavity size normal. Normal left ventricular wall motion. Right Ventricle Normal right ventricular size and function. Right Atrium Normal right atrial size. Left Atrium Mildly increased left atrial diameter. Mitral Valve Mitral annular calcification. Mild mitral regurgitation. Aortic Valve Thickened aortic valve without stenosis.aortic valve sclerosis. Tricuspid Valve No tricuspid stenosis, regurgitation or prolapse.structurally normal tricuspid valve. Pulmonic Valve Structurally normal pulmonic valve. Pericardium No pericardial effusion. Aorta Normal size aortic root and proximal ascending aorta. CONCLUSIONS Technically difficult study. Normal left ventricle size and systolic function Mild mitral regurgitation Previewed by: Dr. Ree Aranda MD (Electronically Signed) Final Date: 08 April 2023 12:21
--- NOTE | 2023-04-08 13:04 | CA ---
Lexiscan Nuclear Stress Test Report Name: Primitivo Benjamin Exam Date: 04/08/2023 09:00 Exam Location: [facility] Ht (in): 69 Wt (lb): 200 BSA: 2.07 Ordering Phys: Ree Aranda MD Referring Phys: RASHMI, Technologist: Derrick Marcum Age: 78 Gender: M : 1945 Procedure CPT: Indications: Reflex order-Stress test ICD-10 Codes: Patient History: Medications: see chart Meds past 24 hrs: Pretest Chest Pain: STRESS TEST Lexiscan Protocol Exercise Duration (min:sec): 02:[address] Depressions (mm): Angina Score: Ta Score: Resting HR (bpm): 62 Peak HR (bpm): 106 Resting BP (mmHg): 156 / 78 Peak BP (mmHg): 140 / 72 MPHR: 141 Target HR: 120 % MPHR: 75 METS: 1.0 Total Dose: Peak Dose: Atropine: Double Product: 54312 BP Response: Stress Termination: PROTOCOL COMPLETE Stress Symptoms: NO SYMPTOMS Stress Summary: ECG ANALYSIS Resting ECG: Sinus rhythm. Normal conduction. No arrhythmias. Normal repolarization. Stress ECG: No ECG changes from baseline with Lexiscan infusion. Ventricular premature contraction. CONCLUSIONS No ECG evidence of ischemia with Lexiscan infusion. Nuclear test results to follow. Dr. Ree Aranda MD (Electronically Signed) Final Date: 08 April 2023 13:03
[2023-04-08 13:44] LABS: Glucose,Whole Blood 211 mg/dL (70-110)
[2023-04-08] MEDS ORDERED: CYCLOBENZAPRINE 10 MG TAB PO PRN (13:51)
[2023-04-08] MEDS: INSULIN ASPART (NovoLOG) 100 UNIT/ML VIAL SQ SCH (13:51)
[2023-04-08] MEDS ORDERED: IPRATROPIUM-ALBUTEROL 3 ML NEB INHALATION PRN (13:51)
[2023-04-08] MEDS: glipiZIDE 10 MG TAB PO SCH (13:51)
[2023-04-08] MEDS ORDERED: SENNOSIDES-DOCUSATE SODIUM 1 EACH TAB PO PRN (13:51)
[2023-04-08] MEDS: SODIUM CHLORIDE 0.9% 1,000 ML in EMPTY BAG 1 BAG IV SCH (14:14)
[2023-04-08 17:06] LABS: Glucose,Whole Blood 199 mg/dL (70-110)
[2023-04-08] MEDS: PANTOPRAZOLE 40 MG TABLET PO SCH (17:59)
[2023-04-08] MEDS: PREGABALIN 75 MG CAP PO SCH (21:01)
[2023-04-08] MEDS: TAMSULOSIN 0.4 MG CAP.ER.24H PO SCH (21:01)
[2023-04-08] MEDS: INSULIN DETEMIR (LEVEMIR) 100 UNIT/ML SYR SQ SCH (21:01)
[2023-04-08 21:06] LABS: Glucose,Whole Blood 167 mg/dL (70-110)
--- NOTE | 2023-04-08 22:55 | P.PN ---
Subjective this is a pleasant 78 years old male with multiple medical problems Patient presents because of chest pain which was going on for a few weeks on and off It's in the lower sternal area on radiating about 2/10 in severity course also was some tenderness in the left lower ribs felt like pressure or burning. No change in urine or bowel habits. No headache dizziness weakness numbness. Patient denies smoking alcohol or illicit drugs. He had back surgery about 5 months ago, currently using her walker. Surgeon was Dr. Robe jay. His vitals are stable Labs from showing unremarkable CBC except for mild anemia with hemoglobin 11.8 and BMP and liver enzymes were unremarkable. Creatinine 1.1 and beyond is elevated at 22. Magnesium level I.4 Chest x-rays negative for acute process EKG shows sinus rhythm at [address]-T changes 04/08/2023 Patient with no chest pain today. Stress test showing postoperative result with a small area of reversible ischemia, ejection fraction is prefers with echocardiogram showing preserved le ft ventricular function and size. Patient's heart failure patient then to undergo cardiac cath tomorrow hold glipizide 10 mg daily as patient seemed to be nothing by mouth after midnight start the patient on d5 normal saline at 75 ml/h while the patient nothing by mouth keep glucose monitoring Objective - Vital Signs Vital signs: Vital Signs Temp 97.9 F 04/08/23 07:00 Pulse 69 04/08/23 07:00 Resp 16 04/08/23 07:00 BP 149/75 04/08/23 07:00 Pulse Ox 97 04/08/23 07:00 FiO2 Intake & Output 04/07/23 04/08/23 04/08/23 18:59 06:59 18:59 Weight 90.718 kg Other: # Voids 1 - Exam GENERAL: The patient is alert and oriented x3, not in any acute distress. Well developed, well nourished. HEENT: Pupils are round and equally reacting to light. EOMI. No scleral icterus. No conjunctival pallor. Normocephalic, atraumatic. No pharyngeal erythema. No thyromegaly. CARDIOVASCULAR: S1 and S2 present. No murmurs, rubs, or gallops. PULMONARY: Chest is clear to auscultation, no wheezing , no crackles. ABDOMEN: Soft, nontender, nondistended, normoactive bowel sounds. No palpable organomegaly. MUSCULOSKELETAL: No joint swelling or deformity. EXTREMITIES: No cyanosis, clubbing, or pedal edema. NEUROLOGICAL: Gross neurological examination did not reveal any focal deficits. SKIN: No rashes. no petechiae. - Labs CBC & Chem 7: 04/07/23 10:11 04/08/23 05:49 Labs: Abnormal Lab Results - Last 24 Hours (Table) 04/08/23 Range/Units 05:49 Glucose 155 H (74-99) mg/dL Assessment and Plan Assessment: Chest pain, status post a first small area of reversible ischemia recetn history of back surgery about five months ago Asthma h/of Coronary Artery Disease Diabetes Mellitus h/o GERD/Reflux Hearing Disorder / Deafness Hyperlipidemia Hypertension Plan: Planned for Cardiac cath cardiology consult c/w aspirin replace magnesium and monitor level Patient already followed up with Dr. Araujo he is going to see him also for Follow-up which intense to go Labs and medication were reviewed.. Continue same treatment. Continue with symptomatic treatment. Resume home medication. Monitor labs and vitals. DVT and GI prophylaxis. Further recommendations as per clinical course of the patient DVT prophylaxis: Subcutaneous heparin GI Prophylaxis: Pepcid Prognosis is guarded
[2023-04-08 23:50] LABS: Glucose,Whole Blood 162 mg/dL (70-110)
[2023-04-08] MEDS: DEXTROSE 5%-0.9% NACL 1,000 ML IV SCH (23:50)
[2023-04-09] MEDS: ATORVASTATIN 80 MG TAB PO ONE (05:54)
[2023-04-09] MEDS: CYANOCOBALAMIN 500 MCG TAB PO SCH (05:54)
[2023-04-09] MEDS: ASPIRIN 325 MG TAB PO ONE (05:54)
[2023-04-09] MEDS: MAGNESIUM OXIDE 400 MG TAB PO SCH (05:55)
[2023-04-09 06:33] LABS: Glucose,Whole Blood 147 mg/dL (70-110)
[2023-04-09] MEDS ORDERED: HEPARIN SODIUM,PORCINE 10,000 UNIT in SODIUM CHLORIDE 0.9% 1,000 ML IRRIGATION PRN (07:00)
[2023-04-09] MEDS ORDERED: HEPARIN SODIUM,PORCINE (1 ML) 2,500 UNIT in SODIUM CHLORIDE 0.9% 250 ML IRRIGATION PRN (07:00)
[2023-04-09] MEDS: IV FLUID CONTINUATION 1,000 ML IV ONE (08:45)
[2023-04-09] MEDS: fentaNYL (PF) 50 MCG/1 ML VIAL IVP ONE (09:25)
[2023-04-09] MEDS: MIDAZOLAM 2 MG/2 ML VIAL IVP ONE (09:28)
[2023-04-09] MEDS: LIDOCAINE 1% INJ 10MG/ML (20 ML MDV) SQ ONE (09:30)
[2023-04-09] MEDS: VERAPAMIL SYRINGE (5 MG/10 ML) INTRAARTER ONE (09:31)
[2023-04-09] MEDS: CLOPIDOGREL 75 MG TAB PO ONE (09:43)
--- NOTE | 2023-04-09 09:53 | P.PN ---
Subjective Progress Note Date: 04/09/23 History of Present Illness: The patient is a 78-year-old male with known history of hypertension tension, hyperlipidemia, diabetes, CAD, status post stenting of the RCA and left circumflex who presents with chest discomfort. Patient has underwent back surgery in November 2022. This morning he woke up to go to physical therapy when he had some discomfort in the chest, not respirophasic nor positional. According to him it reminds him somewhat of his prior cardiac symptoms but not exactly. He continues to have back discomfort, worse with position and breathing. He denied any change in his breathing today, no palpitations, dizziness or syncope. He has mild edema. He has no PND or orthopnea. In the emergency room his cardiac enzymes were unremarkable and he had no acute ST segment changes. He underwent stenting of the left circumflex obtuse marginal branch in July 2020 in the proximal RCA in April 2021. He has been relatively stable since that time. Medications: Metformin, Glucotrol, Norvasc 10 mg daily, Diovan 40 mg daily, Flomax, Prilosec, isosorbide 60 mg daily, insulin, Lipitor 40 mg daily, aspirin once a day Labs: Hemoglobin 11.8, potassium 4.4, BUN 22, creatinine 1.1. Troponin less than 0.012. Chest x-ray with no abnormalities EKG: Sinus mechanism with minor nonspecific ST-T wave changes 04/08 Patient is seen today in follow-up on the observation unit. He he denies having any chest pain. He is scheduled for Lexiscan stress test and echocardiogram is being performed at this time. Blood pressure 149/75, heart rate 69, pulse ox 97% on room air. Repeat BMP is within normal limits except for glucose of 155. Magnesium 1.6. 04/09 Echocardiogram reveals a technically difficult study. Normal left ventricular size and systolic function. Mild mitral regurgitation. Yesterday, patient underwent a Lexiscan stress test which revealed a small area of apical lateral r eversible ischemia and thus patient was scheduled for cardiac catheterization today. No complaints of chest pain or shortness of breath. Blood pressure 114/61, heart rate 55, pulse ox 95% on room air. Physical Examination: 78-year-old male, alert oriented no apparent distress Head: Normocephalic. Eyes: Sclerae nonicteric. Neck: Good carotid upstroke, no bruit, no jugular venous distention. Lungs: Clear to auscultation. Heart: Regular rate and rhythm, S1-S2, no S3, no rub. Systolic ejection murmur. Abdomen: Soft nontender, positive bowel sounds no organomegaly. Extremities: No edema, intact distal pulses. Impression: 1. Chest discomfort of unclear etiology in a patient with known history of CAD 2. History of hypertension 3. History of hyperlipidemia 4. History of diabetes 5. History of back discomfort and recent surgery Plan: 1. Continue present therapy 2. Cardiac catheterization today with Dr. Aranda 3. Further recommendations pending results of catheterization. Nurse practitioner note has been reviewed, I agree with documented findings and plan of care. Patient was seen and examined. Objective - Vital Signs Vital signs: Vital Signs Temp 97.5 F L 04/09/23 07:00 Pulse 55 L 04/09/23 07:00 Resp 16 04/09/23 07:00 BP 114/61 04/09/23 07:00 Pulse Ox 95 04/09/23 07:00 FiO2 Intake & Output 04/08/23 04/09/23 04/09/23 18:59 06:59 18:59 Intake Total 240 0 Balance 240 0 Intake: Oral 240 0 Other: # Voids 1 - Labs CBC & Chem 7: 04/07/23 10:11 04/08/23 05:49 Labs: Abnormal Lab Results - Last 24 Hours (Table) 04/08/23 04/08/23 04/08/23 Range/Units 13:43 17:05 21:00 POC Glucose (mg/dL) 211 H 199 H 167 H (70-110) mg/dL 04/08/23 04/09/23 Range/Units 23:48 06:32 POC Glucose (mg/dL) 162 H 147 H (70-110) mg/dL
[2023-04-09] MEDS: IOPAMIDOL-370 100ML BTL INJ ONE ×2 (10:11→10:52)
[2023-04-09] MEDS ORDERED: MAG HYDROX/AL HYDROX/SIMETH 30 ML CUP PO PRN (11:09)
[2023-04-09] MEDS ORDERED: RX INFO: IV CONTRAST WAS GIVEN 1 EACH MISC MISCELLANE PRN (11:09)
[2023-04-09] MEDS ORDERED: NITROGLYCERIN SL TABS 0.4 MG TAB SUBLINGUAL PRN (11:09)
[2023-04-09] MEDS ORDERED: ATROPINE SULFATE 0.1 MG/ML 10ML SYRINGE IV PRN (11:09)
[2023-04-09] MEDS ORDERED: ZOLPIDEM 5 MG TAB PO PRN (11:09)
[2023-04-09 11:15] LABS: Glucose,Whole Blood 158 mg/dL (70-110)
[2023-04-09] MEDS: SODIUM CHLORIDE 0.9% 1,000 ML in EMPTY BAG 1 BAG IV SCH (11:15)
--- NOTE | 2023-04-09 11:19 | P.CARDCATH ---
Date of Procedure: 04/09/23 Description of Procedure: Cardiac Catheterization: The patient is a 78-year-old male with a known history of CAD, multivessel stenting, hypertension, hyperlipidemia and diabetes who presented with symptoms of chest discomfort and had an abnormal MPI. Recommendations were made regarding cardiac catheterization, the risks and the complications were discussed with the patient who is in full understanding and agreement. Procedure Description: Patient was brought to slab lifting supervisor in fasting semi-sedated state after receiving Fentanyl and Benadryl achieiving moderate conscious sedated state. Using Xylocaine Anesthesia and modified Seldinger technique, a 6-Brazilian sheath was introduced in the right radial artery . Subsequently, selective coronary angiography was performed using a 5-Brazilian 3.5 bend Magi catheter. Multiple views of the coronary artery including hemiaxial views were obtained. The 5 Brazilian pigtail catheter was used to cross the aortic valve and LVEDP was calculated. PCI: After removing the catheters a 6 Brazilian EBU 3.75 guiding catheter was introduced and the system and after cannulating the left main a 0.014 BMW J-wire was positioned in the first OM. Attempt to advanced the wire into the distal left circumflex were unsuccessful. At that time a 0.014 whisper J-wire was advanced and positioned distally. Attempt to advanced a super cross microcatheter were unsuccessful, the microcatheter was removed and a 1.0 x 8 mm sapphire balloon was advanced and multiple inflation at 8 lex were done subsequently a 2.0 x 12 mm trek was advanced and inflations at 8 lex were done. Subsequently the microcatheter was advanced and the wire was exchanged to a 0.014 BMW J-wire. After removing the microcatheter a [place] eye IVUS was advanced and imaging were obtained. Subsequently a 2.75 x 15 mm Xience sole point stent was deployed at 16 lex. Repeat IVUS imaging was performed and subsequently a 3.0 x 8 mm Xience sole point was positioned proximal to the first one and deployed at 16 lex. Attempt to advance a 3.0 x 12 mm and a 3.0 x 8 mm NC trek balloon were unsuccessful in spite of using a guide liner. At that point a 3.0 x 8 mm trek balloon was advanced and multiple inflation at 10 lex were done. After removing the wire imaging were obtained and revealed stable successful stenting. Following that, catheter and sheath were removed. Hemostasis was obtained with deployment of vascular band . There was no immediate complication. Patient was returned to room in stable condition. Of note, the patient received a total of 10,000 units of intravenous heparin as well as intra-arterial verapamil. He received an oral loading dose of clopidogrel. His ACT was monitored. He had mild chest discomfort that improved but no EKG changes. Findings: Fluoroscopy: Calcifications of the coronary arteries was noted. Left main: This is a large size vessel bifurcating into LAD and left circumflex, left main has no high-grade stenosis. LAD: This is a large size vessel, reaching to the apex tortuous in the mid segment. The LAD in the midsegment has a 20% plaque prior to the stented area. There is intimal disease distal to the stent but no significant in-stent restenosis. Left circumflex: This is a large nondominant vessel giving rise to 2 obtuse marginal branch. The proximal left circumflex at the ostium has a 60% plaque, after the takeoff of the first obtuse marginal branch there is a 99% stenosis. Intimal disease in the second obtuse marginal branch was noted. RCA: This is a large dominant vessel, tortuous proximally bifurcating distally to PDA and PLV. The stented segment in the proximal and mid RCA is patent with no significant in-stent restenosis. There is diffuse intimal disease in the mid and distal segment up to 30 to 40% with no high-grade stenosis. Left Ventriculogram: Not performed Hemodynamics: There was no gradient across the aortic valve, LVEDP was 12-14 mmHg Conclusion: 1. Severe stenosis in the proximal left circumflex 2. Patent stent in the LAD, RCA and first OM 3. Mild disease in the LAD and RCA 4. Successful stenting of the ostium and proximal left circumflex with reduction of stenosis from 99% to less than 5% with IVUS imaging. Recommendations: The patient will continue on aspirin and clopidogrel without any interruption for 6 months in addition to aggressive coronary risks modification, attempting to maintain LDL below 70 mg/dL. The findings and the recommendations were discussed with the patient and the family and they were in full understanding and agreement. Duration of sedation is 90 minutes.
[2023-04-09 17:33] LABS: Glucose,Whole Blood 247 mg/dL (70-110)
--- NOTE | 2023-04-09 18:54 | P.PN ---
Subjective this is a pleasant 78 years old male with multiple medical problems Patient presents because of chest pain which was going on for a few weeks on and off It's in the lower sternal area on radiating about 2/10 in severity course also was some tenderness in the left lower ribs felt like pressure or burning. No change in urine or bowel habits. No headache dizziness weakness numbness. Patient denies smoking alcohol or illicit drugs. He had back surgery about 5 months ago, currently using her walker. Surgeon was Dr. Robe jay. His vitals are stable Labs from showing unremarkable CBC except for mild anemia with hemoglobin 11.8 and BMP and liver enzymes were unremarkable. Creatinine 1.1 and beyond is elevated at 22. Magnesium level I.4 Chest x-rays negative for acute process EKG shows sinus rhythm at [address]-T changes 04/08/2023 Patient with no chest pain today. Stress test showing postoperative result with a small area of reversible ischemia, ejection fraction is prefers with echocardiogram showing preserved le ft ventricular function and size. Patient's heart failure patient then to undergo cardiac cath tomorrow hold glipizide 10 mg daily as patient seemed to be nothing by mouth after midnight start the patient on d5 normal saline at 75 ml/h while the patient nothing by mouth keep glucose monitoring 04/09/2023 Patient status post cardiac cath yesterday, his has PCI to proximal left circumflex artery Postprocedure his sitting up in bed eating his lunch with a good appetite denying any other new complaints Currently kept on aspirin and Plavix Quality Assurance Assessor wanted to be monitored for another 24 hours Possible discharge in 44-48 hours if remain stable signs and improvement Objective - Vital Signs Vital signs: Vital Signs Temp 97.4 F L 04/09/23 11:10 Pulse 53 L 04/09/23 12:10 Resp 14 04/09/23 11:24 BP 99/59 04/09/23 12:10 Pulse Ox 93 L 04/09/23 11:24 FiO2 Intake & Output 04/08/23 04/09/23 04/09/23 18:59 06:59 18:59 Intake Total 240 0 300 Balance 240 0 300 Intake: IV 300 Oral 240 0 Other: # Voids 1 - Exam GENERAL: The patient is alert and oriented x3, not in any acute distress. Well developed, well nourished. HEENT: Pupils are round and equally reacting to light. EOMI. No scleral icterus. No conjunctival pallor. Normocephalic, atraumatic. No pharyngeal erythema. No thyromegaly. CARDIOVASCULAR: S1 and S2 present. No murmurs, rubs, or gallops. PULMONARY: Chest is clear to auscultation, no wheezing , no crackles. ABDOMEN: Soft, nontender, nondistended, normoactive bowel sounds. No palpable organomegaly. MUSCULOSKELETAL: No joint swelling or deformity. EXTREMITIES: No cyanosis, clubbing, or pedal edema. NEUROLOGICAL: Gross neurological examination did not reveal any focal deficits. SKIN: No rashes. no petechiae. - Labs CBC & Chem 7: 04/07/23 10:11 04/08/23 05:49 Labs: Abnormal Lab Results - Last 24 Hours (Table) 04/08/23 04/08/23 04/08/23 Range/Units 13:43 17:05 21:00 POC Glucose (mg/dL) 211 H 199 H 167 H (70-110) mg/dL 04/08/23 04/09/23 04/09/23 Range/Units 23:48 06:32 11:14 POC Glucose (mg/dL) 162 H 147 H 158 H (70-110) mg/dL Assessment and Plan Assessment: Chest pain, secondary to coronary artery disease status post PCI to left circumflex artery in the proximal part and the ostium artery recetn history of back surgery about five months ago Asthma h/of Coronary Artery Disease Diabetes Mellitus h/o GERD/Reflux Hearing Disorder / Deafness Hyperlipidemia Hypertension Plan: Status post Cardiac cath cardiology consult c/w aspirin and Plavix Patient already followed up with Dr. Araujo he is going to see him also for Follow-up which intense to go Labs and medication were reviewed.. Continue same treatment. Continue with symptomatic treatment. Resume home medication. Monitor labs and vitals. DVT and GI prophylaxis. Further recommendations as per clinical course of the patient DVT prophylaxis: Subcutaneous heparin GI Prophylaxis: Pepcid Prognosis is guarded
[2023-04-09 20:37] LABS: Glucose,Whole Blood 248 mg/dL (70-110)
[2023-04-09] MEDS: glipiZIDE 10 MG TAB PO SCH (20:51)
[2023-04-10 06:22] LABS: Glucose,Whole Blood 108 mg/dL (70-110)
--- NOTE | 2023-04-10 07:34 | P.PN ---
Subjective Progress Note Date: 04/10/23 PROGRESS NOTE The patient is a 78-year-old male with a known history of coronary disease, hypertension, hyperlipidemia and diabetes who presented with symptoms of chest discomfort and had an abnormal MPI. He underwent cardiac catheterization yesterday and was found to have critical stenosis involving the proximal left circumflex and underwent stenting of that vessel. He is doing well this morning, ambulating without difficulties. He denies any chest discomfort, dizziness or palpitations. Medications: Aspirin, Plavix 75 mg daily, Lipitor 40 mg daily, Norvasc 10 mg daily, Glucotrol, insulin, isosorbide mononitrate 60 mg daily, metoprolol tartrate 25 mg twice a day, PHYSICAL EXAMINATION: Blood pressure 112/60 heart rate 60 LUNGS: Clear to auscultation HEART: Regular rate and rhythm, S1, S2. No S3. Systolic ejection murmur ABDOMEN: Soft, nontender, no organomegaly EXTREMETIES: No edema, right radial pulse intact LAB: EKG sinus mechanism with no acute changes. Lab data pending IMPRESSION: 1. Status post stenting of the left circumflex 2. History of multivessel stenting 3. History of hypertension 4. History of hyperlipidemia 5. History of diabetes PLAN: 1. Continue present therapy 2. Increase physical activity 3. Review lab data 4. If stable discharge home today and follow-up in 1 week Objective - Vital Signs Vital signs: Vital Signs Temp 98.0 F 04/10/23 02:20 Pulse 57 L 04/10/23 02:20 Resp 15 04/10/23 02:20 BP 112/66 04/10/23 02:20 Pulse Ox 97 04/10/23 02:20 FiO2 Intake & Output 04/09/23 04/10/23 04/10/23 18:59 06:59 18:59 Intake Total 780 Balance 780 Intake: IV 300 Oral 480 Other: Voiding Method Toilet # Voids 1 1 - Labs CBC & Chem 7: 04/07/23 10:11 04/08/23 05:49 Labs: Abnormal Lab Results - Last 24 Hours (Table) 04/09/23 04/09/23 04/09/23 Range/Units 11:14 17:32 20:35 POC Glucose (mg/dL) 158 H 247 H 248 H (70-110) mg/dL
[2023-04-10 08:22] VITALS: BP 106/55; PULSE 58; RESP 16; TEMP 97.6
[2023-04-10 08:29] LABS: African American GFR (CKD) 70 (>60 ml/min/1.73 sqM); Anion Gap 10 mmol/L; Blood Urea Nitrogen 16 mg/dL (9-20); Calcium 9.2 mg/dL (8.4-10.2); Carbon Dioxide 23 mmol/L (22-30); Chloride 106 mmol/L (98-107); Glucose 100 mg/dL (74-99); Non-African American GFR(CKD) 61 (>60 ml/min/1.73 sqM); Potassium 4.7 mmol/L (3.5-5.1); Sodium 139 mmol/L (137-145)
[2023-04-10] MEDS: ATORVASTATIN 40 MG TAB PO SCH (09:34)
[2023-04-10] MEDS: ASPIRIN 81 MG PO SCH (09:34)
[2023-04-10] MEDS: CLOPIDOGREL 75 MG TAB PO SCH (09:34)
--- NOTE | 2023-04-10 22:17 | P.DS ---
Providers Date of admission: 04/08/23 14:56 Attending physician: Suad Leon Consults: 04/07/23 11:16 Consult Physician Routine Consulting Provider: Ree Aranda Consult Reason/Comments: CP Do you want consulting provider notified?: Yes 04/09/23 11:09 Consult Physician Routine Consulting Provider: Cardiology Scar Consult Reason/Comments: Post Interventional patient Do you want consulting provider notified?: Already Contacted Primary care physician: Maia Ramirez [facility] Course: Diagnoses: Chest pain, secondary to coronary artery disease status post PCI to left circumflex artery in the proximal part and the ostium artery recent history of back surgery about five months ago Asthma h/of Coronary Artery Disease Diabetes Mellitus h/o GERD/Reflux Hearing Disorder / Deafness Hyperlipidemia Hypertension Hospital course: this is a pleasant 78 years old male with multiple medical problems Patient presents because of chest pain which was going on for a few weeks on and off Patient evaluated by web press operator assistant and he had abnormal stress test showing small area of reversible ischemia with ejection fraction more than 70% Patient status post cardiac cath on 04/08, his has PCI to proximal left circumflex artery postprocedure patient was doing well with no chest pain or dyspnea. No other new complaints Patient feels better as and wants to go home today E currently Patient was cleared for discharge by web press operator assistant All cardiac medication were sent to the pharmacy by web press operator assistant team including aspirin, Plavix, Lipitor, Norvasc, valsartan, metoprolol and Imdur Problems and management plan were discussed with the patient and he verbalized understanding and acceptance Patient was found stable and can be discharged home in guarded prognosis however he needs follow-up as an outpatient. Patient was instructed to follow up with PCP with Dr. Mosquera within one week and patient agrees patient was instructed to follow up with Dr. zhang web press operator assistant in 1 week after discharge and he agrees Physical exam Gen: patient is a AAOx3, no distress CVS: S1-S2, RRR, no murmur Lungs: B/L CTA, no wheezing Abdomen: soft, no distention, no tenderness, positive bowel sounds Extremity: no leg edema or induration Time spent more than 35 minutes Patient Condition at Discharge: Stable Plan - Discharge Summary Discharge Rx Participant: No New Discharge Prescriptions: New Metoprolol Tartrate [Lopressor] 25 mg PO BID #180 tab Clopidogrel [Plavix] 75 mg PO DAILY #90 tab Continue glipiZIDE [Glucotrol] 10 mg PO DAILY amLODIPine BESYLATE [Norvasc] 10 mg PO DAILY metFORMIN HCL [Glucophage] 1,000 mg PO BID #0 Aspirin EC [Ecotrin Low Dose] 81 mg PO DAILY Cyanocobalamin (Vitamin B-12) [Vitamin B-12] 1,000 mcg PO DAILY Insulin Glargine [Lantus Vial] 70 unit SQ HS INSULIN LISPRO (humaLOG) [humaLOG] 20 units SQ AC-TID Tamsulosin HCl [Flomax] 0.4 mg PO HS Pregabalin [Lyrica] 150 mg PO BID #24 cap Ipratropium-Albuterol Nebulize [Duoneb 0.5 mg-3 mg/3 ml Soln] 3 ml INHALATION RT-QID PRN each PRN Reason: Shortness Of Breath Or Wheezing Cyclobenzaprine [Flexeril] 10 mg PO TID PRN PRN Reason: Muscle Spasm Sennosides/Docusate Sodium [Senna Plus 8.6-50 mg Softgel] 1 cap PO DAILY PRN PRN Reason: Constipation Isosorbide Mononitrate ER [Imdur] 60 mg PO DAILY Atorvastatin [Lipitor] 40 mg PO DAILY Magnesium Oxide [Mag-Ox] 400 mg PO DAILY Omeprazole [PriLOSEC] 20 mg PO AC-BID Valsartan [Diovan] 40 mg PO DAILY Discharge Medication List glipiZIDE [Glucotrol] 10 mg PO DAILY 01/17/14 [History] amLODIPine BESYLATE [Norvasc] 10 mg PO DAILY 04/19/14 [History] metFORMIN HCL [Glucophage] 1,000 mg PO BID #0 10/18/17 [Rx] Aspirin EC [Ecotrin Low Dose] 81 mg PO DAILY 02/12/19 [History] Cyanocobalamin (Vitamin B-12) [Vitamin B-12] 1,000 mcg PO DAILY 02/12/19 [History] Insulin Glargine [Lantus Vial] 70 unit SQ HS 07/20/19 [History] INSULIN LISPRO (humaLOG) [humaLOG] 20 units SQ AC-TID 01/09/20 [History] Tamsulosin HCl [Flomax] 0.4 mg PO HS 01/09/20 [History] Atorvastatin [Lipitor] 40 mg PO DAILY 09/19/22 [History] Isosorbide Mononitrate ER [Imdur] 60 mg PO DAILY 09/19/22 [History] Magnesium Oxide [Mag-Ox] 400 mg PO DAILY 09/19/22 [History] Omeprazole [PriLOSEC] 20 mg PO AC-BID 11/21/22 [History] Ipratropium-Albuterol Nebulize [Duoneb 0.5 mg-3 mg/3 ml Soln] 3 ml INHALATION RT-QID PRN each 11/30/22 [Rx] Pregabalin [Lyrica] 150 mg PO BID #24 cap 11/30/22 [Rx] Cyclobenzaprine [Flexeril] 10 mg PO TID PRN 04/07/23 [History] Sennosides/Docusate Sodium [Senna Plus 8.6-50 mg Softgel] 1 cap PO DAILY PRN 04/07/23 [History] Valsartan [Diovan] 40 mg PO DAILY 04/07/23 [History] Clopidogrel [Plavix] 75 mg PO DAILY #90 tab 04/10/23 [Rx] Metoprolol Tartrate [Lopressor] 25 mg PO BID #180 tab 04/10/23 [Rx] Follow up Appointment(s)/Referral(s): Ree Aranda MD [STAFF PHYSICIAN] - 04/17/23 9:30 am Ashley Carvalho MD [Primary Care Provider] - 1-2 days Patient Instructions/Handouts: *Surgery [facility] - After Heart Catheterization - Medication Reconciliation Technician Instructions, Chest Pain (DC), After Radial Heart Catheterization (GEN) Activity/Diet/Wound Care/Special Instructions: heart healthy diet, low carbohydrate diet 180 k pedro pablo per day activity is restricted till you see your doctor we recommend to check your glucose 4 times per day, before each meal and at bed time, keep the results in a log book and bring it to your doctor on your appointment date if your glucose is less than 70 or more than 400 then call 911 and come to emergency room Discharge Disposition: HOME SELF-CARE
== END 2023-04-10 13:15 | disposition home or self-care (01) | DRG 322 ==
LOC: EC 09:23 → 6NMEDSUR 11:16 → OBSVTOIN 04-08 14:56 → 6NMEDSUR 04-08 20:01
PROVIDERS: ADMIT Hospitalist; ATTEND Hospitalist
PROC: 4A023N7 Measurement of Cardiac Sampling and Pressure, Left Heart, Percutaneous Approach (ICD-10-PCS; principal; 2023-04-09 09:00)
PROC: B240ZZ3 Ultrasonography of Single Coronary Artery, Intravascular (ICD-10-PCS; principal; 2023-04-09 09:00)
PROC: B2111ZZ Fluoroscopy of Multiple Coronary Arteries using Low Osmolar Contrast (ICD-10-PCS; principal; 2023-04-09 09:00)
PROC: 027035Z Dilation of Coronary Artery, One Artery with Two Drug-eluting Intraluminal Devices, Percutaneous Approach (ICD-10-PCS; principal; 2023-04-09 09:00)
DX: I25.10 Atherosclerotic heart disease of native coronary artery without angina pectoris (principal); I10 Essential (primary) hypertension; E78.5 Hyperlipidemia, unspecified; K21.9 Gastro-esophageal reflux disease without esophagitis; H91.90 Unspecified hearing loss, unspecified ear; E11.40 Type 2 diabetes mellitus with diabetic neuropathy, unspecified; G89.4 Chronic pain syndrome; J45.909 Unspecified asthma, uncomplicated; M54.9 Dorsalgia, unspecified; D64.9 Anemia, unspecified; Z95.5 Presence of coronary angioplasty implant and graft; Z79.899 Other long term (current) drug therapy; Z79.84 Long term (current) use of oral hypoglycemic drugs; Z79.82 Long term (current) use of aspirin; Z79.4 Long term (current) use of insulin
CPT/HCPCS: 36415; 71046; 78452; 80048; 80053; 83690; 83735; 83880; 84484; 85025; 85610; 85730; 92978; 93005; 93017; 93306; 93458; 99285

== ENCOUNTER → 2023-06-03 | Outpatient (CLI) | payer MEDICARE ==
[2023-06-03 16:54] LABS: ALT 20 U/L (10-49); AST 15 U/L (14-35); Albumin 4.4 g/dL (3.8-4.9); Albumin/Globulin Ratio 1.69 Ratio (1.60-3.17); Alkaline Phosphatase 94 U/L (41-126); BUN/Creat Ratio 19.17 Ratio (12.00-20.00); Calcium 9.3 mg/dL (8.7-10.3); Carbon Dioxide 21.3 mmol/L (21.6-31.8); Chloride 105 mmol/L (96-109); Chol/HDL Ratio 3.49 Ratio; Globulin 2.6 g/dL (1.6-3.3); Glucose 169 mg/dL (70-110); LDL Cholesterol,Calculated 90.7 mg/dL (0.0-131.0); PSA Annual Screen 0.626 ng/mL (0.000-4.000); Potassium 4.4 mmol/L (3.5-5.5); Sodium 142 mmol/L (135-145); Total Bilirubin 0.3 mg/dL (0.3-1.2)
[2023-06-03 18:22] LABS: Basophils # (A) 0.09 X 10*3/uL (0.00-0.10); Basophils % (A) 1.3 %; Eosinophils # (A) 0.48 X 10*3/uL (0.04-0.35); Eosinophils % (A) 7.2 %; HCT 36.5 % (39.6-50.0); HGB 11.3 g/dL (13.0-17.0); Lymphocytes # (A) 2.01 X 10*3/uL (0.90-5.00); Lymphocytes % (A) 30.1 %; MCH 25.1 pg (27.0-32.0); MCV 81.1 FL (80.0-97.0); Mean Platelet Volume 10.6 FL (9.5-12.2); Monocytes # (A) 0.51 X 10*3/uL (0.20-1.00); Monocytes % (A) 7.6 %; NRBC Per 100 WBC 0 X 10*3/uL (0.00-0.01); Neutrophils # (A) 3.55 X 10*3/uL (1.80-7.70); Neutrophils % (A) 53.2 %; Platelet Count 311 X 10*3/uL (140-440); RDW 18.9 % (11.5-14.5); WBC 6.68 X 10*3/uL (4.50-10.00)
[2023-06-03 23:10] LABS: Microalbumin Creatinine Ratio <12 mg/g Cr (0-30)
== END | disposition home or self-care (01) ==
LOC: LABWHC1 11:04
PROVIDERS: ATTEND Internal Medicine Endocrinology, Diabetes & Metabolism
DX: Z12.5 Encounter for screening for malignant neoplasm of prostate (principal); E11.65 Type 2 diabetes mellitus with hyperglycemia; I10 Essential (primary) hypertension; E78.2 Mixed hyperlipidemia; K21.9 Gastro-esophageal reflux disease without esophagitis; R53.81 Other malaise; R53.83 Other fatigue; Z79.4 Long term (current) use of insulin; Z79.899 Other long term (current) drug therapy
CPT/HCPCS: 80061; 80053; 84443; 85025; 82306; 82043; 82570; 83036; 36415; G0103

== ENCOUNTER 2023-06-15 10:59 | Emergency (ER) | payer MEDICARE ==
--- NOTE | 2023-06-15 11:19 | ED ---
General Adult HPI - General Stated complaint: SOB/COUGH Time Seen by Provider: 06/15/23 11:10 Source: patient, RN notes reviewed - History of Present Illness Initial comments: This is a 78-year-old male with a chief complaint of a dry cough, sore throat, and congestion over the past 5 days. Patient states that he saw his primary care provider on Friday where he was sent home with Tamiflu, cefdinir, and benzonatate. Patient states that no chest x-ray was performed and patient was not swabbed for viral infections. Denies known fevers at home, nausea, vomiting, abdominal pain, shortness of breath, chest pain or pressure. Patient denies history of asthma. States that he was diagnosed with influenza last month. - Related Data Home Medications Medication Instructions Recorded Confirmed glipiZIDE [Glucotrol] 10 mg PO DAILY 01/17/14 04/07/23 amLODIPine BESYLATE [Norvasc] 10 mg PO DAILY 04/19/14 04/07/23 Aspirin EC [Ecotrin Low Dose] 81 mg PO DAILY 02/12/19 04/07/23 Cyanocobalamin (Vitamin B-12) 1,000 mcg PO DAILY 02/12/19 04/07/23 [Vitamin B-12] Insulin Glargine [Lantus Vial] 70 unit SQ HS 07/20/19 04/07/23 INSULIN LISPRO (humaLOG) [humaLOG] 20 units SQ AC-TID 01/09/20 04/07/23 Tamsulosin HCl [Flomax] 0.4 mg PO HS 01/09/20 04/07/23 Atorvastatin [Lipitor] 40 mg PO DAILY 09/19/22 04/07/23 Isosorbide Mononitrate ER [Imdur] 60 mg PO DAILY 09/19/22 04/07/23 Magnesium Oxide [Mag-Ox] 400 mg PO DAILY 09/19/22 04/07/23 Omeprazole [PriLOSEC] 20 mg PO AC-BID 11/21/22 04/07/23 Cyclobenzaprine [Flexeril] 10 mg PO TID PRN 04/07/23 04/07/23 Sennosides/Docusate Sodium [Senna 1 cap PO DAILY PRN 04/07/23 04/07/23 Plus 8.6-50 mg Softgel] Valsartan [Diovan] 40 mg PO DAILY 04/07/23 04/07/23 Previous Rx's Medication Instructions Recorded metFORMIN HCL [Glucophage] 1,000 mg PO BID #0 10/18/17 Ipratropium-Albuterol Nebulize 3 ml INHALATION RT-QID PRN each 11/30/22 [Duoneb 0.5 mg-3 mg/3 ml Soln] Pregabalin [Lyrica] 150 mg PO BID #24 cap 11/30/22 Clopidogrel [Plavix] 75 mg PO DAILY #90 tab 04/10/23 Metoprolol Tartrate [Lopressor] 25 mg PO BID #180 tab 04/10/23 Albuterol Inhaler [Ventolin Hfa 1 - 2 puff INHALATION Q6H PRN #1 06/15/23 Inhaler] each predniSONE 50 mg PO DAILY #5 tab 06/15/23 Allergies Allergy/AdvReac Type Severity Reaction Status Date / Time No Known Allergies Allergy Verified 04/07/23 12:17 Review of Systems ROS Statement: Those systems with pertinent positive or pertinent negative responses have been documented in the HPI. ROS Other: All systems not noted in ROS Statement are negative. Past Medical History Past Medical History: Asthma, Coronary Artery Disease (CAD), Chest Pain / Angina, Diabetes Mellitus, GERD/Reflux, Hearing Disorder / Deafness, Hyperlipidemia, Hypertension Additional Past Medical History / Comment(s): IDDM. Hx chronic back pain, chronic pain syndrome. Neuropathy bilateral feet, SOBOBA/uses hearing aids bilaterally. History of Any Multi-Drug Resistant Organisms: None Reported Past Surgical History: Heart Catheterization With Stent Additional Past Surgical History / Comment(s): trigger 2nd digit left hand 10-12-20, trigger finger release rt hand,Cervical fusion, back lami/injections, carpal tunnel surgery, colonoscopy/benign polypectomy. 3 stents placed 05/2021 Past Anesthesia/Blood Transfusion Reactions: No Reported Reaction Additional Past Anesthesia/Blood Transfusion Reaction / Comment(s): no problems with prior blood transfusion. Date of Last Stent Placement:: 2019 x1 stent Past Psychological History: No Psychological Hx Reported Smoking Status: Never smoker Past Alcohol Use History: None Reported Past Drug Use History: None Reported - Past Family History Father Family Medical History: Myocardial Infarction ([place]) Additional Family Medical History / Comment(s): Passed at age 72. Mother Family Medical History: Myocardial Infarction ([place]) Additional Family Medical History / Comment(s): Passed at age 77. Brother(s) Family Medical History: Myocardial Infarction ([place]) Additional Family Medical History / Comment(s): 3 brothers passed from [place] in 50's. Sister(s) Family Medical History: Myocardial Infarction ([place]) Additional Family Medical History / Comment(s): sister 50s General Exam - General Exam Comments Initial Comments: Visual Physical Exam Vital signs reviewed General: Well-appearing, nontoxic, no acute distress. Head: Normocephalic, atraumatic Eyes: PERRLA, EOMI ENT: Airway patent Chest: Nonlabored breathing Skin: No visual rash, normal skin tone Neuro: Alert and oriented 3 Musculoskeletal: No gross abnormalities General appearance: alert, in no apparent distress Head exam: Present: atraumatic, normocephalic, normal inspection Eye exam: Present: normal appearance, PERRL, EOMI. Absent: scleral icterus, conjunctival injection, periorbital swelling ENT exam: Present: normal exam, mucous membranes moist Neck exam: Present: normal inspection. Absent: tenderness, meningismus, lymphadenopathy Respiratory exam: Present: wheezes (scattered expiratory wheezes). Absent: respiratory distress, rales, rhonchi, stridor, chest wall tenderness Cardiovascular Exam: Present: regular rate, normal rhythm, normal heart sounds. Absent: systolic murmur, diastolic murmur, rubs, gallop, clicks GI/Abdominal exam: Present: soft, normal bowel sounds. Absent: distended, tenderness, guarding, rebound, rigid Extremities exam: Present: normal inspection, full ROM, normal capillary refill. Absent: tenderness, pedal edema, joint swelling, calf tenderness Back exam: Present: normal inspection Neurological exam: Present: alert, oriented X3, CN II-XII intact Psychiatric exam: Present: normal affect, normal mood Skin exam: Present: warm, dry, intact, normal color. Absent: rash Course Vital Signs 06/15/23 06/15/23 06/15/23 11:22 14:35 14:36 Temperature 97.9 F 98.1 F Pulse Rate 78 68 Respiratory 22 18 20 Rate Blood Pressure 175/80 160/72 O2 Sat by Pulse 96 95 Oximetry 06/15/23 06/15/23 06/15/23 15:02 15:12 15:44 Temperature 98.4 F Pulse Rate 66 68 70 Respiratory 16 18 18 Rate Blood Pressure 166/78 O2 Sat by Pulse 97 Oximetry Medical Decision Making - Medical Decision Making Was pt. sent in by a medical professional or institution (RAYMUNDO Ty, FINANCIAL BUSINESS ANALYST, urgent care, hospital, or [facility]...) When possible be specific @ -No Did you speak to anyone other than the patient for history (EMS, parent, family, police, friend...)? What history was obtained from this source @ -No Did you review nursing and triage notes (agree or disagree)? Why? @ -I reviewed and agree with nursing and triage notes Were old charts reviewed (outside hosp., previous admission, EMS record, old EKG, old radiological studies, urgent care reports/EKG's, [facility] records)? Report findings @ -No old charts were reviewed Differential Diagnosis (chest pain, altered mental status, abdominal pain women, abdominal pain men, vaginal bleeding, weakness, fever, dyspnea, syncope, headache, dizziness, GI bleed, back pain, seizure, CVA, palpatations, mental health, musculoskeletal)? @ -COVID 19, RSV, influenza, pneumonia, acute bronchitis, URI, this list is not all inclusive EKG interpreted by me (3pts min.). @ -None X-rays interpreted by me (1pt min.). @ -Chest x-ray reveals no acute findings cardiopulmonary process. CT interpreted by me (1pt min.). @ -None done U/S interpreted by me (1pt. min.). @ -None done What testing was considered but not performed or refused? (CT, X-rays, U/S, labs)? Why? @ -None What meds were considered but not given or refused? Why? @ -None Did you discuss the management of the patient with other professionals (professionals i.e. RAYMUNDO Ty, FINANCIAL BUSINESS ANALYST, lab, RT, psych nurse, social media project manager, tax technician, teacher, chief revenue officer, case aide)? Give summary @ -No Was smoking cessation discussed for >3mins.? @ -No Was critical care preformed (if so, how long)? @ -No Were there social determinants of health that impacted care today? How? (Homelessness, low income, unemployed, alcoholism, drug addiction, transportation, low edu. Level, literacy, decrease access to med. care, alf, rehab)? @ -No Was there de-escalation of care discussed even if they declined (Discuss DNR or withdrawal of care, Hospice)? DNR status @ -No What co-morbidities impacted this encounter? (DM, HTN, Smoking, COPD, CAD, Cancer, CVA, ARF, Chemo, Hep., AIDS, mental health diagnosis, sleep apnea, morb id obesity)? @ -coronary artery disease Was patient admitted / discharged? Hospital course, mention meds given and route, prescriptions, significant lab abnormalities, going to OR and other pertinent info. @ -78-year-old male with cough, sore throat, body aches. On physical examination patient was noted to have diffuse expiratory wheezes over the posterior lung rolon. Patient will receive DuoNeb breathing treatment in addition to shot of Solu-Medrol. Patient viral panel negative for COVID, flu, RSV. Chest x-ray no acute process noted, no signs of pneumonia. On reevaluation, patient states that he feels better after breathing treatment. Patient will be sent home with 5-day course of steroids instructed to start steroids tomorrow in addition to a albuterol inhaler as needed. Instruct patient to follow-up with primary care provider early next week for further evaluation. He is in agreement with this. Recommend that patient discontinue taking Tamiflu in addition to antibiotic due to low clinical suspicion that patient's infection is bacterial and he tested negative for influenza A. He is in agreement with this. Spoke with Dr. Wilson. @ -No Drug Therapy requiring intensive monitoring for toxicity (Heparin, Nitro, Insulin, Cardizem)? @ -No Were any procedures done? @ -No Diagnosis/symptom? @ -cough, viral infection Acute, or Chronic, or Acute on Chronic? @ -acute Uncomplicated (without systemic symptoms) or Complicated (systemic symptoms)? @ -uncomplicated Side effects of treatment? @ -No Exacerbation, Progression, or Severe Exacerbation? @ -No Poses a threat to life or bodily function? How? (Chest pain, [place], [place], pneumonia, PE, COPD, DKA, ARF, appy, cholecystitis, CVA, Diverticulitis, Homicidal, Suicidal, threat to staff... and all critical care pts) @ -No - Lab Data Lab Results 06/15/23 Range/Units 11:41 Influenza Type A (PCR) Not Detected (Not Detectd) Influenza Type B (PCR) Not Detected (Not Detectd) RSV (PCR) Not Detected (Not Detectd) SARS-CoV-2 (PCR) Not Detected (Not Detectd) Disposition Clinical Impression: Dry cough, Wheezing, Viral infection Narrative: Please return to the Emergency Department if symptoms worsen or any other concerns. Full course of steroids as prescribed. Follow-up with your primary care provider within the next 1 to 3 days for further evaluation. Disposition: HOME SELF-CARE Condition: Good Prescriptions: predniSONE 50 mg PO DAILY #5 tab Albuterol Inhaler [Ventolin Hfa Inhaler] 1 - 2 puff INHALATION Q6H PRN #1 each PRN Reason: Shortness Of Breath Is patient prescribed a controlled substance at d/c from ED?: No Referrals: Pete Fountain MD [Primary Care Provider] - 1-2 days Time of Disposition: 15:27
--- NOTE | 2023-06-15 13:32 | XR ---
EXAMINATION TYPE: XR chest 2V DATE OF EXAM: 06/15/2023 11:36 AM CLINICAL INDICATION:Male, 78 years old with history of cough; [facility] COMPARISON: 04/07/2023 TECHNIQUE: XR chest 2V. Frontal and lateral views of the chest.. FINDINGS: Lines/Tubes/Devices: No indwelling lines are seen. Heart/mediastinum: Heart size upper normal. Mediastinum appears normal. Stable mild fullness of the left hilum. Pulmonary vascularity: Not increased, Lungs/Pleura: There is no evidence of pleural effusion, focal consolidation, or pneumothorax. Musculoskeletal: No acute osseous abnormality demonstrated in the limits of the exam. Degenerative c hanges. Cervical and lumbar fixation hardware. Other findings: None. IMPRESSION: No acute findings, or significant interval change.
[2023-06-15] MEDS: methylPREDNISolone SOD SUCCI 125 MG/2 ML VIAL IM ONE (14:56)
[2023-06-15] MEDS: IPRATROPIUM-ALBUTEROL 3 ML NEB INHALATION STA (14:59)
[2023-06-15 15:23] VITALS: RESP 18
[2023-06-15 16:02] VITALS: BP 166/78; PULSE 70; TEMP 98.4
== END 2023-06-15 15:45 | disposition home or self-care (01) ==
LOC: EC 10:59
DX: R06.02 Shortness of breath (principal); B34.9 Viral infection, unspecified
CPT/HCPCS: 96372 ×2; 99285 ×2; 94640; 87636; 71046; J2919

== ENCOUNTER 2023-06-18 13:59 | Observation (INO) | payer MEDICARE ==
[2023-06-18 15:49] LABS: Anisocytosis Slight; Basophils % (A) 0 %; Eosinophils % (A) 0 %; HCT 39.8 % (39.0-53.0); HGB 12.6 gm/dL (13.0-17.5); Hypochromasia Slight; Lymphocytes # (A) 1.2 k/uL (1.0-4.8); Lymphocytes % (A) 12 %; MCH 25.3 pg (25.0-35.0); MCHC 31.6 g/dL (31.0-37.0); MCV 79.8 fL (80.0-100.0); Mean Platelet Volume 7.7; Microcytosis Slight; Monocytes # (A) 0.5 k/uL (0-1.0); Monocytes % (A) 5 %; Neutrophils # (A) 8.5 k/uL (1.3-7.7); Neutrophils % (A) 83 %; Platelet Count 306 k/uL (150-450); RBC 4.99 m/uL (4.30-5.90); RDW 17.2 % (11.5-15.5); WBC 10.3 k/uL (3.8-10.6)
--- NOTE | 2023-06-18 16:10 | XR ---
EXAMINATION TYPE: XR chest 2V DATE OF EXAM: 06/18/2023 COMPARISON: 06/15/2023 HISTORY: 78 year-old male shortness of breath, difficulty breathing TECHNIQUE: PA and lateral views FINDINGS: Heart upper limits of normal in size. Aorta and pulmonary vasculature within normal limits. No consol idation or pleural effusion. ACDF hardware partially visualized lower thoracolumbar fusion hardware. Some strandy atelectasis at the left midlung. IMPRESSION: Borderline heart size. Strandy atelectasis or scar at the left midlung. Otherwise, no acute process s een.
[2023-06-18 16:11] LABS: INR 0.9 (<1.2); Partial Thromboplastin Time 21.4 sec (22.0-30.0); Prothrombin Time 10.3 sec (10.0-12.5)
[2023-06-18 16:21] LABS: ALT 21 U/L (4-49); AST 18 U/L (17-59); African American GFR (CKD) 67 (>60 ml/min/1.73 sqM); Albumin 4.7 g/dL (3.5-5.0); Alkaline Phosphatase 96 U/L (38-126); Anion Gap 11 mmol/L; Blood Urea Nitrogen 31 mg/dL (9-20); Calcium 9.5 mg/dL (8.4-10.2); Carbon Dioxide 23 mmol/L (22-30); Chloride 106 mmol/L (98-107); Glucose 237 mg/dL (74-99); Non-African American GFR(CKD) 58 (>60 ml/min/1.73 sqM); Potassium 5.3 mmol/L (3.5-5.1); Sodium 140 mmol/L (137-145); Total Bilirubin 0.4 mg/dL (0.2-1.3); Total Protein 7.7 g/dL (6.3-8.2)
[2023-06-18 16:29] LABS: NT-Pro-B-Type Natriuretic Pept 603 pg/mL
[2023-06-18] MEDS: IPRATROPIUM-ALBUTEROL 3 ML NEB INHALATION STA (17:11)
--- NOTE | 2023-06-18 17:28 | CT ---
EXAMINATION TYPE: CT chest angio for PE CT DLP: 567 mGycm, Automated exposure control for dose reduction was used. DATE OF EXAM: 06/18/2023 5:14 PM COMPARISON: 12/17/2022 CLINICAL INDICATION:Male, 78 years old with history of sob; SOB and elevated d-dimer TECHNIQUE/CONTRAST: CTA scan of the thorax is performed with IV Contrast, patient injected with 80ml mL of Isovue 370, SD P images are created and reviewed these are created on a separate workstation.. FINDINGS: Pulmonary Artery: There is no evidence for a filling defect within the pulmonary vasculature to sugge st acute pulmonary embolism. The pulmonary artery is of normal size. Lungs/Pleura: No evidence of focal consolidation, pleural effusion or pneumothorax. Airway: Large airways are patent. Heart: Heart is within normal limits for size. Moderate atherosclerosis of the arterial vasculature. Vasculature: No evidence of aortic aneurysm. Mediastinum: No gross evidence of adenopathy. Musculoskeletal: No acute osseous abnormalities postsurgical changes to the spine. Hardware appears i ntact. Soft Tissues: Unremarkable. Lower neck: No significant findings. Upper Abdomen: No significant findings. IMPRESSION: No evidence of pulmonary embolism.
[2023-06-18] MEDS: methylPREDNISolone SOD SUCCI 125 MG/2 ML VIAL IV STA (17:41)
[2023-06-18] MEDS: MAGNESIUM SULFATE-D5W PMX 1 GM in DEXTROSE/WATER 1 100ML.BAG IVPB ONE (17:43)
--- NOTE | 2023-06-18 18:13 | ED ---
SOB HPI - General Chief Complaint: Shortness of Breath Stated Complaint: JOAN Time Seen by Provider: 06/18/23 14:26 Source: patient Mode of arrival: ambulatory Limitations: no limitations - History of Present Illness Initial Comments: 78-year-old male with past medical history of asthma who presents emergency department reporting shortness of breath. Patient was seen on the and complained of cough, congestion and shortness of breath. On that day it had been going on for 5 days. He had seen his primary care doctor and was sent home on Tamiflu, cefdinir and Tessalon Perles. He continued to have symptoms and therefore was reevaluated. He did have wheezing but denied a history of asthma. He was discharged home on steroids and an albuterol inhaler. States he has been taking these medications as directed and discontinue the medications prescribed by his primary care doctor. He has not had any improvement in his symptoms. He continues to have a dry cough. No fevers. His viral panel was negative. He denies any chest pain. No calf pain or swelling. No other alleviating, precipitating or modifying factors - Related Data Home Medications Medication Instructions Recorded Confirmed glipiZIDE [Glucotrol] 10 mg PO DAILY 01/17/14 06/18/23 amLODIPine BESYLATE [Norvasc] 10 mg PO DAILY 04/19/14 06/18/23 Insulin Glargine [Lantus Vial] 70 - 75 unit SQ HS 07/20/19 06/18/23 INSULIN LISPRO (humaLOG) [humaLOG] 20 - 25 units SQ AC-TID 01/09/20 06/18/23 Tamsulosin HCl [Flomax] 0.4 mg PO HS 01/09/20 06/18/23 Atorvastatin [Lipitor] 40 mg PO DAILY 09/19/22 06/18/23 Isosorbide Mononitrate ER [Imdur] 60 mg PO DAILY 09/19/22 06/18/23 Omeprazole [PriLOSEC] 20 mg PO BID 11/21/22 06/18/23 Valsartan [Diovan] 40 mg PO DAILY 04/07/23 06/18/23 Nitroglycerin Sl Tabs [Nitrostat] 0.4 mg SL Q5M PRN 06/18/23 06/18/23 Pregabalin [Lyrica] 150 mg PO BID 06/18/23 06/18/23 Previous Rx's Medication Instructions Recorded metFORMIN HCL [Glucophage] 1,000 mg PO BID #0 10/18/17 Clopidogrel [Plavix] 75 mg PO DAILY #90 tab 04/10/23 Metoprolol Tartrate [Lopressor] 25 mg PO BID #180 tab 04/10/23 predniSONE 10 mg PO DIRECTED 12 Days #30 06/22/23 tab Allergies Allergy/AdvReac Type Severity Reaction Status Date / Time No Known Allergies Allergy Verified 06/18/23 14:06 Review of Systems ROS Statement: Those systems with pertinent positive or pertinent negative responses have been documented in the HPI. ROS Other: All systems not noted in ROS Statement are negative. Past Medical History Past Medical History: Asthma, Coronary Artery Disease (CAD), Chest Pain / Angina, Diabetes Mellitus, GERD/Reflux, Hearing Disorder / Deafness, Hyperlipidemia, Hypertension Additional Past Medical History / Comment(s): IDDM. Hx chronic back pain, chronic pain syndrome. Neuropathy bilateral feet, [place]/uses hearing aids bilaterally. History of Any Multi-Drug Resistant Organisms: None Reported Past Surgical History: Heart Catheterization With Stent Additional Past Surgical History / Comment(s): trigger 2nd digit left hand 1020, trigger finger release rt hand,Cervical fusion, back lami/injections, carpal tunnel surgery, colonoscopy/benign polypectomy. 3 stents placed 05/2021 Past Anesthesia/Blood Transfusion Reactions: No Reported Reaction Additional Past Anesthesia/Blood Transfusion Reaction / Comment(s): no problems with prior blood transfusion. Date of Last Stent Placement:: 2019 x1 stent Past Psychological History: No Psychological Hx Reported Smoking Status: Never smoker Past Alcohol Use History: None Reported Past Drug Use History: None Reported - Past Family History Father Family Medical History: Myocardial Infarction ([place]) Additional Family Medical History / Comment(s): Passed at age 72. Mother Family Medical History: Myocardial Infarction ([place]) Additional Family Medical History / Comment(s): Passed at age 77. Brother(s) Family Medical History: Myocardial Infarction ([place]) Additional Family Medical History / Comment(s): 3 brothers passed from [place] in 50's. Sister(s) Family Medical History: Myocardial Infarction ([place]) Additional Family Medical History / Comment(s): sister 50s General Exam Limitations: no limitations General appearance: alert, in no apparent distress Head exam: Present: atraumatic, normocephalic, normal inspection Eye exam: Present: normal appearance, PERRL, EOMI. Absent: scleral icterus, conjunctival injection, periorbital swelling ENT exam: Present: normal exam, mucous membranes moist Neck exam: Present: normal inspection. Absent: tenderness, meningismus, lymphadenopathy Respiratory exam: Present: wheezes, decreased breath sounds. Absent: respiratory distress, rales, rhonchi, stridor Cardiovascular Exam: Present: regular rate, normal rhythm, normal heart sounds. Absent: systolic murmur, diastolic murmur, rubs, gallop, clicks GI/Abdominal exam: Present: soft, normal bowel sounds. Absent: distended, tenderness, guarding, rebound, rigid Extremities exam: Present: normal inspection, full ROM, normal capillary refill. Absent: tenderness, pedal edema, joint swelling, calf tenderness Back exam: Present: normal inspection Neurological exam: Present: alert, oriented X3, CN II-XII intact Psychiatric exam: Present: normal affect, normal mood Skin exam: Present: warm, dry, intact, normal color. Absent: rash Course Vital Signs 06/18/23 06/18/23 06/18/23 14:03 14:06 14:14 Temperature 97.7 F Pulse Rate 89 Pulse Rate [ Pulse Oximetery ] Respiratory 20 22 Rate Blood Pressure 182/75 Blood Pressure [Supine] O2 Sat by Pulse 99 97 99 Oximetry 06/18/23 06/18/23 06/18/23 14:30 15:00 15:30 Temperature Pulse Rate 73 69 69 Pulse Rate [ Pulse Oximetery ] Respiratory 26 H 24 25 H Rate Blood Pressure Blood Pressure [Supine] O2 Sat by Pulse 99 98 97 Oximetry 06/18/23 06/18/23 06/18/23 16:00 16:30 17:11 Temperature Pulse Rate 64 63 61 Pulse Rate [ Pulse Oximetery ] Respiratory 16 16 18 Rate Blood Pressure 160/84 Blood Pressure [Supine] O2 Sat by Pulse 99 98 Oximetry 06/18/23 06/18/23 06/18/23 17:19 17:30 17:38 Temperature Pulse Rate 66 68 68 Pulse Rate [ Pulse Oximetery ] Respiratory 18 22 Rate Blood Pressure 146/73 Blood Pressure [Supine] O2 Sat by Pulse 98 98 Oximetry 06/18/23 06/18/23 06/18/23 18:00 18:56 19:00 Temperature Pulse Rate 62 69 Pulse Rate [ Pulse Oximetery ] Respiratory 11 L 18 19 Rate Blood Pressure 146/73 Blood Pressure [Supine] O2 Sat by Pulse 98 Oximetry 06/18/23 06/18/23 06/18/23 19:30 20:00 20:30 Temperature Pulse Rate 66 65 66 Pulse Rate [ Pulse Oximetery ] Respiratory 16 17 14 Rate Blood Pressure 156/64 116/79 124/104 Blood Pressure [Supine] O2 Sat by Pulse 95 96 Oximetry 06/18/23 06/18/23 06/18/23 21:00 21:30 22:00 Temperature Pulse Rate 66 72 70 Pulse Rate [ Pulse Oximetery ] Respiratory 12 22 18 Rate Blood Pressure 165/74 Blood Pressure [Supine] O2 Sat by Pulse Oximetry 06/18/23 06/18/23 06/18/23 22:30 22:43 22:50 Temperature Pulse Rate 70 60 63 Pulse Rate [ Pulse Oximetery ] Respiratory 18 Rate Blood Pressure 150/92 Blood Pressure [Supine] O2 Sat by Pulse 96 Oximetry 06/19/23 06/19/23 06/19/23 01:06 02:46 02:53 Temperature Pulse Rate 60 63 71 Pulse Rate [ Pulse Oximetery ] Respiratory 18 18 Rate Blood Pressure 169/98 Blood Pressure [Supine] O2 Sat by Pulse 98 98 Oximetry 06/19/23 06/19/23 06/19/23 03:00 03:07 06:00 Temperature Pulse Rate 71 73 Pulse Rate [ Pulse Oximetery ] Respiratory 18 Rate Blood Pressure 137/65 102/43 Blood Pressure [Supine] O2 Sat by Pulse 97 Oximetry 06/19/23 06/19/23 06/19/23 07:56 08:11 08:59 Temperature Pulse Rate 70 72 98 Pulse Rate [ Pulse Oximetery ] Respiratory 18 Rate Blood Pressure 150/80 Blood Pressure [Supine] O2 Sat by Pulse 94 L 96 Oximetry 06/19/23 06/19/23 06/19/23 12:38 12:45 15:50 Temperature Pulse Rate 68 69 69 Pulse Rate [ Pulse Oximetery ] Respiratory Rate Blood Pressure Blood Pressure [Supine] O2 Sat by Pulse Oximetry 06/19/23 06/19/23 06/19/23 16:00 17:03 18:10 Temperature 98.5 F Pulse Rate 68 77 Pulse Rate [ 74 Pulse Oximetery ] Respiratory 18 17 Rate Blood Pressure 126/65 Blood Pressure 117/58 [Supine] O2 Sat by Pulse 96 95 Oximetry Procedures - [place] Protocol (Time Out) Nurse: Lazara Rodriguez Medical Decision Making - Medical Decision Making Was pt. sent in by a medical professional or institution ([facility] Ty, [facility] OWNER, urgent care, hospital, or penitentiary...) When possible be specific @ -No Did you speak to anyone other than the patient for history (EMS, parent, family, police, friend...)? What history was obtained from this source @ -No Did you review nursing and triage notes (agree or disagree)? Why? @ -I reviewed and agree with nursing and triage notes Were old charts reviewed (outside hosp., previous admission, EMS record, old EKG, old radiological studies, urgent care reports/EKG's, penitentiary records)? Report findings @ -I reviewed patient's recent ED visit Differential Diagnosis (chest pain, altered mental status, abdominal pain women, abdominal pain men, vaginal bleeding, weakness, fever, dyspnea, syncope, hea dache, dizziness, GI bleed, back pain, seizure, CVA, palpatations, mental health, musculoskeletal)? @ -Differential Dyspnea: Coronary syndrome, arrhythmia, tamponade, asthma, COPD, pulmonary embolism, pneumonia, pneumothorax, pulmonary effusion, anaphylaxis, diabetic ketoacidosis, flailed chest, pulmonary contusion, diaphragmatic rupture, anemia, neuromuscular, this is not meant to be an all-inclusive list. EKG interpreted by me (3pts min.). @ -Yes and demonstrates sinus rhythm with a rate of 81. MN interval 181. QRS 85. QTc of 390. PVC present. No acute ST segment elevation X-rays interpreted by me (1pt min.). @ -Yes which demonstrated no acute process CT interpreted by me (1pt min.). @ -Yes which demonstrated no acute process U/S interpreted by me (1pt. min.). @ -None done What testing was considered but not performed or refused? (CT, X-rays, U/S, labs)? Why? @ -None What meds were considered but not given or refused? Why? @ -None Did you discuss the management of the patient with other professionals (professionals i.e. , RAYM[facility]DO, [employer]NER, lab, RT, psych nurse, social studies teacher, wood die maker, teacher, chief commercial officer, foster care case manager)? Give summary @ -Spoke with Dr. Fountain who will admit the patient Was smoking cessation discussed for >3mins.? @ -No Was critical care preformed (if so, how long)? @ -No Were there social determinants of health that impacted care today? How? (Homel essness, low income, unemployed, alcoholism, drug addiction, transportation, low edu. Level, literacy, decrease access to med. care, shelter, rehab)? @ -No Was there de-escalation of care discussed even if they declined (Discuss DNR or withdrawal of care, Hospice)? DNR status @ -No What co-morbidities impacted this encounter? (DM, HTN, Smoking, COPD, CAD, Cancer, CVA, ARF, Chemo, Hep., AIDS, mental health diagnosis, sleep apnea, morbid obesity)? @ -Asthma Was patient admitted / discharged? Hospital course, mention meds given and route, prescriptions, significant lab abnormalities, going to OR and other pertinent info. @ -Upon arrival patient was seen and evaluated in room 7. Thorough history and physical exam was performed. Patient is diffusely wheezy. He was given a breathing treatment and steroids. Laboratory studies are conducted. Chest x- ray was performed. CT of the chest was also obtained. High concern for reactive airway at this time. As the patient is failing outpatient measures I did recommend admission to the hospital [place] patient was agreeable. Called and spoke with Dr. Fountain who agreed to admit the patient Undiagnosed new problem with uncertain prognosis? @ -No Drug Therapy requiring intensive monitoring for toxicity (Heparin, Nitro, Insulin, Cardizem)? @ -No Were any procedures done? @ -No Diagnosis/symptom? @ -Acute asthma exacerbation Acute, or Chronic, or Acute on Chronic? @ -Acute Uncomplicated (without systemic symptoms) or Complicated (systemic symptoms)? @ -Complicated Side effects of treatment? @ -No Exacerbation, Progression, or Severe Exacerbation? @ -Yes Poses a threat to life or bodily function? How? (Chest pain, [place], [place], pneumonia, PE, COPD, DKA, ARF, appy, cholecystitis, CVA, Diverticulitis, Homicidal, Suicidal, threat to staff... and all critical care pts) @ -No - Lab Data Result diagrams: 06/22/23 05:21 06/22/23 05:21 Lab Results 06/18/23 06/18/23 06/18/23 Range/Units 15:37 15:37 15:37 WBC 10.3 (3.8-10.6) k/uL RBC 4.99 (4.30-5.90) m/uL Hgb 12.6 L (13.0-17.5) gm/dL Hct 39.8 (39.0-53.0) % MCV 79.8 L (80.0-100.0) fL MCH 25.3 (25.0-35.0) pg MCHC 31.6 (31.0-37.0) g/dL RDW 17.2 H (11.5-15.5) % Plt Count 306 (150-450) k/uL MPV 7.7 Neutrophils % 83 % Lymphocytes % 12 % Monocytes % 5 % Eosinophils % 0 % Basophils % 0 % Neutrophils # 8.5 H (1.3-7.7) k/uL Lymphocytes # 1.2 (1.0-4.8) k/uL Monocytes # 0.5 (0-1.0) k/uL Eosinophils # 0.0 (0-0.7) k/uL Basophils # 0.0 (0-0.2) k/uL Hypochromasia Slight Anisocytosis Slight Microcytosis Slight PT 10.3 (10.0-12.5) sec INR 0.9 (<1.2) APTT 21.4 L (22.0-30.0) sec D-Dimer 1.14 H (<0.60) mg/L FEU Sodium 140 (137-145) mmol/L Potassium 5.3 H (3.5-5.1) mmol/L Chloride 106 (98-107) mmol/L Carbon Dioxide 23 (22-30) mmol/L Anion Gap 11 mmol/L BUN 31 H (9-20) mg/dL Creatinine 1.19 (0.66-1.25) mg/dL Est GFR (CKD-EPI)AfAm 67 (>60 ml/min/1.73 sqM) Est GFR (CKD-EPI)NonAf 58 (>60 ml/min/1.73 sqM) Glucose 237 H (74-99) mg/dL Plasma Lactic Acid Hossein (0.7-2.0) mmol/L Calcium 9.5 (8.4-10.2) mg/dL Total Bilirubin 0.4 (0.2-1.3) mg/dL AST 18 (17-59) U/L ALT 21 (4-49) U/L Alkaline Phosphatase 96 (38-126) U/L Troponin I (0.000-0.034) ng/mL NT-Pro-B Natriuret Pep 603 pg/mL Total Protein 7.7 (6.3-8.2) g/dL Albumin 4.7 (3.5-5.0) g/dL 06/18/23 06/18/23 Range/Units 15:37 15:37 WBC (3.8-10.6) k/uL RBC (4.30-5.90) m/uL Hgb (13.0-17.5) gm/dL Hct (39.0-53.0) % MCV (80.0-100.0) fL MCH (25.0-35.0) pg MCHC (31.0-37.0) g/dL RDW (11.5-15.5) % Plt Count (150-450) k/uL MPV Neutrophils % % Lymphocytes % % Monocytes % % Eosinophils % % Basophils % % Neutrophils # (1.3-7.7) k/uL Lymphocytes # (1.0-4.8) k/uL Monocytes # (0-1.0) k/uL Eosinophils # (0-0.7) k/uL Basophils # (0-0.2) k/uL Hypochromasia Anisocytosis Microcytosis PT (10.0-12.5) sec INR (<1.2) APTT (22.0-30.0) sec D-Dimer (<0.60) mg/L FEU Sodium (137-145) mmol/L Potassium (3.5-5.1) mmol/L Chloride (98-107) mmol/L Carbon Dioxide (22-30) mmol/L Anion Gap mmol/L BUN (9-20) mg/dL Creatinine (0.66-1.25) mg/dL Est GFR (CKD-EPI)AfAm (>60 ml/min/1.73 sqM) Est GFR (CKD-EPI)NonAf (>60 ml/min/1.73 sqM) Glucose (74-99) mg/dL Plasma Lactic Acid Hossein 1.9 (0.7-2.0) mmol/L Calcium (8.4-10.2) mg/dL Total Bilirubin (0.2-1.3) mg/dL AST (17-59) U/L ALT (4-49) U/L Alkaline Phosphatase (38-126) U/L Troponin I <0.012 (0.000-0.034) ng/mL NT-Pro-B Natriuret Pep pg/mL Total Protein (6.3-8.2) g/dL Albumin (3.5-5.0) g/dL Disposition Clinical Impression: Asthma exacerbation Disposition: ADMITTED IP TO THIS HOSP Condition: Stable Is patient prescribed a controlled substance at d/c from ED?: No Time of Disposition: 18:13 Decision to Admit Reason: Admit from EC Decision Date: 06/18/23 Decision Time: 18:13
[2023-06-18] MEDS ORDERED: NALOXONE 0.4 MG/ML 1 ML VIAL IV PRN (18:15)
[2023-06-18 22:30] LABS: Glucose,Whole Blood 399 mg/dL (70-110)
[2023-06-18] MEDS: METOPROLOL TARTRATE 25 MG TAB PO SCH (22:31)
[2023-06-18] MEDS: metFORMIN 500 MG TAB PO SCH (22:32)
[2023-06-18] MEDS: PREGABALIN 75 MG CAP PO SCH (22:39)
[2023-06-18] MEDS: TAMSULOSIN 0.4 MG CAP.ER.24H PO SCH (22:39)
[2023-06-18] MEDS: IPRATROPIUM-ALBUTEROL 3 ML NEB INHALATION SCH (22:49)
[2023-06-18] MEDS: methylPREDNISolone SOD SUCCI 40 MG/ML 1 ML VIAL IV SCH (23:03)
[2023-06-18] MEDS: INSULIN DETEMIR (LEVEMIR) 100 UNIT/ML SYR SQ SCH (23:03)
[2023-06-19 06:49] LABS: Glucose,Whole Blood 258 mg/dL (70-110)
[2023-06-19 08:51] LABS: Glucose,Whole Blood 270 mg/dL (70-110)
[2023-06-19] MEDS: ISOSORBIDE MONONITRATE ER 60 MG TAB.ER.24H PO SCH (08:54)
[2023-06-19] MEDS: ATORVASTATIN 40 MG TAB PO SCH (08:55)
[2023-06-19] MEDS: PANTOPRAZOLE 40 MG TABLET PO SCH (08:55)
[2023-06-19] MEDS: CLOPIDOGREL 75 MG TAB PO SCH (08:55)
[2023-06-19] MEDS: glipiZIDE 10 MG TAB PO SCH (08:55)
[2023-06-19] MEDS: amLODIPine 10 MG TAB PO SCH (08:55)
[2023-06-19] MEDS: INSULIN ASPART (NovoLOG) 100 UNIT/ML VIAL SQ SCH (08:56)
[2023-06-19] MEDS ORDERED: NITROGLYCERIN SL TABS 0.4 MG TAB SUBLINGUAL PRN (10:09)
[2023-06-19 11:21] LABS: BUN/Creat Ratio 25.08 Ratio (12.00-20.00); Blood Urea Nitrogen 32.6 mg/dL (9.0-27.0); Calcium 9.4 mg/dL (8.7-10.3); Carbon Dioxide 18.6 mmol/L (21.6-31.8); Chloride 100 mmol/L (96-109); Glucose 261 mg/dL (70-110); Potassium 5.1 mmol/L (3.5-5.5); Sodium 138 mmol/L (135-145)
[2023-06-19 11:24] LABS: Basophils # (A) 0.01 X 10*3/uL (0.00-0.10); Basophils % (A) 0.1 %; Eosinophils # (A) 0 X 10*3/uL (0.04-0.35); Eosinophils % (A) 0 %; HCT 37.2 % (39.6-50.0); HGB 11.6 g/dL (13.0-17.0); Lymphocytes # (A) 0.99 X 10*3/uL (0.90-5.00); Lymphocytes % (A) 9.8 %; MCHC 31.2 g/dL (32.0-37.0); MCV 80.2 FL (80.0-97.0); Mean Platelet Volume 10.3 FL (9.5-12.2); Monocytes # (A) 0.16 X 10*3/uL (0.20-1.00); Monocytes % (A) 1.6 %; NRBC Per 100 WBC 0 X 10*3/uL (0.00-0.01); Neutrophils # (A) 8.71 X 10*3/uL (1.80-7.70); Neutrophils % (A) 86.6 %; Platelet Count 290 X 10*3/uL (140-440); RBC 4.64 X 10*6/uL (4.40-5.60); WBC 10.06 X 10*3/uL (4.50-10.00)
[2023-06-19] MEDS: VALSARTAN 40 MG TAB PO SCH (11:48)
[2023-06-19 12:17] LABS: Glucose,Whole Blood 321 mg/dL (70-110)
[2023-06-19 16:57] LABS: Glucose,Whole Blood 253 mg/dL (70-110)
--- NOTE | 2023-06-19 17:44 | P.HPIM ---
History of Present Illness H&P Date: 06/19/23 Primitivo Benjamin, Is a 78-year-old male Who presented to [facility] emergency room With a chief complaint of worsening shortness of breath He was evaluated in the emergency room vital examination on presentation revealed a temperature of 97.7 pulse 89 respiration 20 blood pressure 182/75 pulse ox 99% on room air Laboratory data reveals a white blood count of 10.06 hemoglobin 11.6 platelet count 290 BUN 32.6 creatinine 1.3 troponin 0.012 BNP 603 d-dimer 1.14 Testing in the emergency room revealed CT angiogram of the chest was negative for pulmonary embolism Patient was admitted to medical floor for further evaluation and treatment Past Medical History Past Medical History: Asthma, Coronary Artery Disease (CAD), Chest Pain / Angina, Diabetes Mellitus, GERD/Reflux, Hearing Disorder / Deafness, Hyperlipidemia, Hypertension Additional Past Medical History / Comment(s): IDDM. Hx chronic back pain, chronic pain syndrome. Neuropathy bilateral feet, [place]/uses hearing aids bilaterally. History of Any Multi-Drug Resistant Organisms: None Reported Past Surgical History: Heart Catheterization With Stent Additional Past Surgical History / Comment(s): trigger 2nd digit left hand 12-13-19, trigger finger release rt hand,Cervical fusion, back lami/injections, carpal tunnel surgery, colonoscopy/benign polypectomy. 3 stents placed 05/2021 Past Anesthesia/Blood Transfusion Reactions: No Reported Reaction Additional Past Anesthesia/Blood Transfusion Reaction / Comment(s): no problems with prior blood transfusion. Date of Last Stent Placement:: 2019 x1 stent Past Psychological History: No Psychological Hx Reported Smoking Status: Never smoker Past Alcohol Use History: None Reported Past Drug Use History: None Reported - Past Family History Father Family Medical History: Myocardial Infarction ([place]) Additional Family Medical History / Comment(s): Passed at age 72. Mother Family Medical History: Myocardial Infarction ([place]) Additional Family Medical History / Comment(s): Passed at age 77. Brother(s) Family Medical History: Myocardial Infarction ([place]) Additional Family Medical History / Comment(s): 3 brothers passed from [place] in 50's. Sister(s) Family Medical History: Myocardial Infarction ([place]) Additional Family Medical History / Comment(s): sister 50s Medications and Allergies Home Medications Medication Instructions Recorded Confirmed Type glipiZIDE [Glucotrol] 10 mg PO DAILY 01/17/14 06/18/23 History amLODIPine BESYLATE [Norvasc] 10 mg PO DAILY 04/19/14 06/18/23 History metFORMIN HCL [Glucophage] 1,000 mg PO BID #0 10/18/17 06/18/23 Rx Insulin Glargine [Lantus Vial] 70 - 75 unit SQ HS 07/20/19 06/18/23 History INSULIN LISPRO (humaLOG) [humaLOG] 20 - 25 units SQ AC-TID 01/09/20 06/18/23 History Tamsulosin HCl [Flomax] 0.4 mg PO HS 01/09/20 06/18/23 History Atorvastatin [Lipitor] 40 mg PO DAILY 09/19/22 06/18/23 History Isosorbide Mononitrate ER [Imdur] 60 mg PO DAILY 09/19/22 06/18/23 History Omeprazole [PriLOSEC] 20 mg PO BID 11/21/22 06/18/23 History Valsartan [Diovan] 40 mg PO DAILY 04/07/23 06/18/23 History Clopidogrel [Plavix] 75 mg PO DAILY #90 tab 04/10/23 06/18/23 Rx Metoprolol Tartrate [Lopressor] 25 mg PO BID #180 tab 04/10/23 06/18/23 Rx predniSONE 50 mg PO DAILY #5 tab 06/15/23 06/18/23 Rx Nitroglycerin Sl Tabs [Nitrostat] 0.4 mg SL Q5M PRN 06/18/23 06/18/23 History Pregabalin [Lyrica] 150 mg PO BID 06/18/23 06/18/23 History predniSONE 10 mg PO DIRECTED 06/18/23 06/18/23 History Allergies Allergy/AdvReac Type Severity Reaction Status Date / Time No Known Allergies Allergy Verified 06/18/23 14:06 Physical Exam Vitals: Vital Signs Temp Pulse Resp BP Pulse Ox 06/19/23 08:59 98 18 150/80 96 06/19/23 08:11 72 06/19/23 07:56 70 94 L 06/19/23 06:00 73 18 102/43 97 06/19/23 03:07 71 06/19/23 03:00 137/65 06/19/23 02:53 71 06/19/23 02:46 63 18 98 06/19/23 01:06 60 18 169/98 98 06/18/23 22:50 63 06/18/23 22:43 60 06/18/23 22:30 70 18 150/92 96 06/18/23 22:00 70 18 06/18/23 21:30 72 22 06/18/23 21:00 66 12 165/74 06/18/23 20:30 66 14 124/104 96 06/18/23 20:00 65 17 116/79 06/18/23 19:30 66 16 156/64 95 06/18/23 19:00 69 19 06/18/23 18:00 62 11 L 146/73 98 06/18/23 17:38 68 146/73 98 06/18/23 17:30 68 22 98 06/18/23 17:19 66 18 06/18/23 17:11 61 18 06/18/23 16:30 63 16 98 06/18/23 16:00 64 16 160/84 99 06/18/23 15:30 69 25 H 97 06/18/23 15:00 69 24 98 06/18/23 14:30 73 26 H 99 06/18/23 14:14 99 06/18/23 14:06 22 97 06/18/23 14:03 97.7 F 89 20 182/75 99 In general patient is alert and oriented x 3 in no distress HEENT head normocephalic and atraumatic Neck is supple no JVD no goiter no lymphadenopathy no carotid bruit Chest examination reveals a scattered crackles bilaterally with wheezing and prolonged expiratory phase Cardiac exam reveals regular heart sounds S1 and S2 no gallops no murmurs Abdomen is soft nontender no organomegaly with normal bowel sounds Extremity exam reveals no edema no cyanosis or clubbing Neurological examination reveals no gross focal deficits Results CBC & Chem 7: 06/19/23 07:13 06/19/23 07:13 Labs: Abnormal Lab Results - Last 24 Hours (Table) 06/18/23 06/18/23 06/18/23 Range/Units 15:37 15:37 15:37 Hgb 12.6 L (13.0-17.5) gm/dL MCV 79.8 L (80.0-100.0) fL RDW 17.2 H (11.5-15.5) % Neutrophils # 8.5 H (1.3-7.7) k/uL APTT 21.4 L (22.0-30.0) sec D-Dimer 1.14 H (<0.60) mg/L FEU Potassium 5.3 H (3.5-5.1) mmol/L BUN 31 H (9-20) mg/dL Glucose 237 H (74-99) mg/dL POC Glucose (mg/dL) (70-110) mg/dL 06/18/23 06/19/23 06/19/23 Range/Units 22:29 06:47 08:50 Hgb (13.0-17.5) gm/dL MCV (80.0-100.0) fL RDW (11.5-15.5) % Neutrophils # (1.3-7.7) k/uL APTT (22.0-30.0) sec D-Dimer (<0.60) mg/L FEU Potassium (3.5-5.1) mmol/L BUN (9-20) mg/dL Glucose (74-99) mg/dL POC Glucose (mg/dL) 399 H 258 H 270 H (70-110) mg/dL Assessment and Plan Plan: acute exacerbation of asthma underlying history of hypertension Underlying history of hyperlipidemia Underlying history of insulin-dependent diabetes mellitus Underlying history of coronary artery disease Underlying history of benign prostatic hypertrophy At this time patient is admitted to medical floor Home medications reviewed and reordered Patient was started on IV Solu-Medrol in the emergency room, and inhaled bronchodilators No evidence of pneumonia no need for antibiotics at this time will monitor closely For DVT prophylaxis subcu Lovenox Pulmonary consultation requested
[2023-06-19 20:17] LABS: Glucose,Whole Blood 275 mg/dL (70-110)
[2023-06-19] MEDS ORDERED: IPRATROPIUM-ALBUTEROL 3 ML NEB INHALATION PRN (20:44)
[2023-06-20 06:17] LABS: Glucose,Whole Blood 228 mg/dL (70-110)
[2023-06-20] MEDS: ENOXAPARIN 40 MG/0.4 ML SYRINGE SQ SCH (07:22)
[2023-06-20] MEDS: IPRATROPIUM-ALBUTEROL 3 ML NEB INHALATION SCH (08:26)
[2023-06-20 09:15] LABS: Anisocytosis Slight; Basophils % (A) 0 %; Eosinophils % (A) 0 %; HCT 36.7 % (39.0-53.0); HGB 11.1 gm/dL (13.0-17.5); Hypochromasia Moderate; Lymphocytes # (A) 1.1 k/uL (1.0-4.8); Lymphocytes % (A) 8 %; MCH 24.9 pg (25.0-35.0); MCHC 30.1 g/dL (31.0-37.0); MCV 82.6 fL (80.0-100.0); Mean Platelet Volume 7.8; Monocytes # (A) 0.5 k/uL (0-1.0); Monocytes % (A) 4 %; Neutrophils # (A) 13.1 k/uL (1.3-7.7); Neutrophils % (A) 88 %; Platelet Count 278 k/uL (150-450); RBC 4.45 m/uL (4.30-5.90); RDW 17.5 % (11.5-15.5); WBC 14.8 k/uL (3.8-10.6)
[2023-06-20 09:17] LABS: ALT 19 U/L (4-49); AST 18 U/L (17-59); African American GFR (CKD) 66 (>60 ml/min/1.73 sqM); Albumin/Globulin Ratio 1.5; Alkaline Phosphatase 80 U/L (38-126); Anion Gap 14 mmol/L; Blood Urea Nitrogen 37 mg/dL (9-20); Carbon Dioxide 19 mmol/L (22-30); Chloride 104 mmol/L (98-107); Globulin 2.6 g/dL; Glucose 286 mg/dL (74-99); Non-African American GFR(CKD) 57 (>60 ml/min/1.73 sqM); Potassium 4.9 mmol/L (3.5-5.1); Sodium 137 mmol/L (137-145); Total Bilirubin 0.5 mg/dL (0.2-1.3); Total Protein 6.6 g/dL (6.3-8.2)
--- NOTE | 2023-06-20 09:57 | P.PN ---
Subjective Progress Note Date: 06/20/23 Primitivo Benjamin, Is a 78-year-old male Who presented to [facility] emergency room With a chief complaint of worsening shortness of breath He was evaluated in the emergency room vital examination on presentation revealed a temperature of 97.7 pulse 89 respiration 20 blood pressure 182/75 pu lse ox 99% on room air Laboratory data reveals a white blood count of 10.06 hemoglobin 11.6 platelet count 290 BUN 32.6 creatinine 1.3 troponin 0.012 BNP 603 d-dimer 1.14 Testing in the emergency room revealed CT angiogram of the chest was negative for pulmonary embolism Patient was admitted to medical floor for further evaluation and treatment on 06/20/2023 patient is alert and oriented times 3. Patient reports improvement with shortness of breath. Patient still having some expiratory wheezing. Awaiting pulmonary input. Patient remains on IV steroids.current vital signs temp 98.0, heart rate 66, respiratory rate 20, blood pressure 135 or 67 pulse ox 96% on 2 L Objective - Vital Signs Vital signs: Vital Signs Temp 98.0 F 06/20/23 07:17 Pulse 68 06/20/23 08:41 Resp 20 06/20/23 07:17 BP 135/67 06/20/23 07:17 Pulse Ox 97 06/20/23 08:26 FiO2 Intake & Output 06/19/23 06/20/23 06/20/23 18:59 06:59 18:59 Weight 90.718 kg Other: # Voids 1 - Exam In general patient is alert and oriented x 3 in no distress HEENT head normocephalic and atraumatic Neck is supple no JVD no goiter no lymphadenopathy no carotid bruit Chest examination reveals a scattered crackles bilaterally with wheezing and prolonged expiratory phase Cardiac exam reveals regular heart sounds S1 and S2 no gallops no murmurs Abdomen is soft nontender no organomegaly with normal bowel sounds Extremity exam reveals no edema no cyanosis or clubbing Neurological examination reveals no gross focal deficits - Labs CBC & Chem 7: 06/20/23 07:43 06/20/23 07:43 Labs: Abnormal Lab Results - Last 24 Hours (Table) 06/19/23 06/19/23 06/19/23 Range/Units 07:13 07:13 12:15 WBC 10.06 H (4.50-10.00) X 10*3/uL Hgb 11.6 L (13.0-17.0) g/dL Hct 37.2 L (39.6-50.0) % MCH 25.0 L (27.0-32.0) pg MCHC 31.2 L (32.0-37.0) g/dL RDW 19.0 H (11.5-14.5) % Immature Gran # 0.19 H (0.00-0.04) X 10*3/uL Neutrophils # 8.71 H (1.80-7.70) X 10*3/uL Monocytes # 0.16 L (0.20-1.00) X 10*3/uL Eosinophils # 0 L (0.04-0.35) X 10*3/uL Carbon Dioxide 18.6 L (21.6-31.8) mmol/L Anion Gap 19.40 H (4.00-12.00) mmol/L BUN 32.6 H (9.0-27.0) mg/dL Est GFR (CKD-EPI) 56 L (>=60) BUN/Creatinine Ratio 25.08 H (12.00-20.00) Ratio Glucose 261 H (70-110) mg/dL POC Glucose (mg/dL) 321 H (70-110) mg/dL 06/19/23 06/19/23 06/20/23 Range/Units 16:56 20:13 06:15 WBC (4.50-10.00) X 10*3/uL Hgb (13.0-17.0) g/dL Hct (39.6-50.0) % MCH (27.0-32.0) pg MCHC (32.0-37.0) g/dL RDW (11.5-14.5) % Immature Gran # (0.00-0.04) X 10*3/uL Neutrophils # (1.80-7.70) X 10*3/uL Monocytes # (0.20-1.00) X 10*3/uL Eosinophils # (0.04-0.35) X 10*3/uL Carbon Dioxide (21.6-31.8) mmol/L Anion Gap (4.00-12.00) mmol/L BUN (9.0-27.0) mg/dL Est GFR (CKD-EPI) (>=60) BUN/Creatinine Ratio (12.00-20.00) Ratio Glucose (70-110) mg/dL POC Glucose (mg/dL) 253 H 275 H 228 H (70-110) mg/dL 06/20/23 06/20/23 Range/Units 07:43 07:43 WBC 14.8 H (4.50-10.00) X 10*3/uL Hgb 11.1 L (13.0-17.0) g/dL Hct 36.7 L (39.6-50.0) % MCH 24.9 L (27.0-32.0) pg MCHC 30.1 L (32.0-37.0) g/dL RDW 17.5 H (11.5-14.5) % Immature Gran # (0.00-0.04) X 10*3/uL Neutrophils # 13.1 H (1.80-7.70) X 10*3/uL Monocytes # (0.20-1.00) X 10*3/uL Eosinophils # (0.04-0.35) X 10*3/uL Carbon Dioxide 19 L (21.6-31.8) mmol/L Anion Gap (4.00-12.00) mmol/L BUN 37 H (9.0-27.0) mg/dL Est GFR (CKD-EPI) (>=60) BUN/Creatinine Ratio (12.00-20.00) Ratio Glucose 286 H (70-110) mg/dL POC Glucose (mg/dL) (70-110) mg/dL Assessment and Plan Assessment: acute exacerbation of asthma underlying history of hypertension Underlying history of hyperlipidemia Underlying history of insulin-dependent diabetes mellitus Underlying history of coronary artery disease Underlying history of benign prostatic hypertrophy At this time patient is admitted to medical floor Home medications reviewed and reordered Patient was started on IV Solu-Medrol in the emergency room, and inhaled bronchodilators No evidence of pneumonia no need for antibiotics at this time will monitor closely For DVT prophylaxis subcu Lovenox Pulmonary consultation requested
[2023-06-20 11:38] LABS: Glucose,Whole Blood 156 mg/dL (70-110)
--- NOTE | 2023-06-20 14:30 | P.CNPUL ---
History of Present Illness Consult date: 06/20/23 Requesting physician: Pete Fountain Reason for consult: cough Chief complaint: Shortness of breath cough congestion History of present illness: This is a 78-year-old male patient who has a history of hypertension, diabetes mellitus, hyperlipidemia, coronary artery disease with previous stent plac ements, chronic cough. He is a non-smoker. He does have a history of gastroesophageal reflux and issues with heartburn. He had been seen in the emergency room on 06/15/2023 and treated with antibiotics and steroids. He did not show much improvement and was back in the emergency room on 06/18/2023 with similar symptoms. He is seen today in consultation on the regular medical floor. He is currently sitting up in bed. Awake and alert in no acute distress. Chest x-ray shows no acute process. CT angiogram ruled out pulmonary embolism. Lung rolon were clear. White count 14.8. Hemoglobin 11.1. Platelets 278. Sodium 137. Potassium 4.9. Bicarb 19. BUN 37. Creatinine 1.21. Glucose 286. He had been initiated on bronchodilators and steroids. Review of Systems REVIEW OF SYSTEMS: CONSTITUTIONAL: Denies any recent significant weight loss or weight gain. EYES: Denies change in vision. EARS, NOSE, MOUTH, THROAT: Denies headaches, denies sore throat. CARDIOVASCULAR: Denies chest pain, palpitations or syncopal episodes. RESPIRATORY: Positive for cough, no congestion or hemoptysis. GASTROINTESTINAL: Denies change in appetite, denies abdominal pain GENITOURINARY: Denies hematuria, denies infections. MUSKULOSKELETAL: Denies pain, denies swelling. INTEGUMENTARY: Denies rash, denies eczema. NEUROLOGICAL: Denies recent memory loss, no recent seizure activity. PSYCHIATRIC: Denies anxiety, denies depression. HEMATOLOGIC/LYMPHATIC: Denies anemia, denies enlarged lymph nodes. Past Medical History Past Medical History: Asthma, Coronary Artery Disease (CAD), Chest Pain / Angina, Diabetes Mellitus, GERD/Reflux, Hearing Disorder / Deafness, Hyperlipidemia, Hypertension Additional Past Medical History / Comment(s): IDDM. Hx chronic back pain, chronic pain syndrome. Neuropathy bilateral feet, [place]/uses hearing aids bilaterally. History of Any Multi-Drug Resistant Organisms: None Reported Past Surgical History: Heart Catheterization With Stent Additional Past Surgical History / Comment(s): trigger 2nd digit left hand 10-12-20, trigger finger release rt hand,Cervical fusion, back lami/injections, carpal tunnel surgery, colonoscopy/benign polypectomy. 3 stents placed 05/2021 Past Anesthesia/Blood Transfusion Reactions: No Reported Reaction Additional Past Anesthesia/Blood Transfusion Reaction / Comment(s): no problems with prior blood transfusion. Date of Last Stent Placement:: 2019 x1 stent Past Psychological History: No Psychological Hx Reported Additional Psychological History / Comment(s): . Smoking Status: Never smoker Past Alcohol Use History: None Reported Past Drug Use History: None Reported - Past Family History Father Family Medical History: Myocardial Infarction ([place]) Additional Family Medical History / Comment(s): Passed at age 72. Mother Family Medical History: Myocardial Infarction ([place]) Additional Family Medical History / Comment(s): Passed at age 77. Brother(s) Family Medical History: Myocardial Infarction ([place]) Additional Family Medical History / Comment(s): 3 brothers passed from [place] in 5 0's. Sister(s) Family Medical History: Myocardial Infarction ([place]) Additional Family Medical History / Comment(s): sister 50s Medications and Allergies Home Medications Medication Instructions Recorded Confirmed Type glipiZIDE [Glucotrol] 10 mg PO DAILY 01/17/14 06/18/23 History amLODIPine BESYLATE [Norvasc] 10 mg PO DAILY 04/19/14 06/18/23 History metFORMIN HCL [Glucophage] 1,000 mg PO BID #0 10/18/17 06/18/23 Rx Insulin Glargine [Lantus Vial] 70 - 75 unit SQ HS 07/20/19 06/18/23 History INSULIN LISPRO (humaLOG) [humaLOG] 20 - 25 units SQ AC-TID 01/09/20 06/18/23 History Tamsulosin HCl [Flomax] 0.4 mg PO HS 01/09/20 06/18/23 History Atorvastatin [Lipitor] 40 mg PO DAILY 09/19/22 06/18/23 History Isosorbide Mononitrate ER [Imdur] 60 mg PO DAILY 09/19/22 06/18/23 History Omeprazole [PriLOSEC] 20 mg PO BID 11/21/22 06/18/23 History Valsartan [Diovan] 40 mg PO DAILY 04/07/23 06/18/23 History Clopidogrel [Plavix] 75 mg PO DAILY #90 tab 04/10/23 06/18/23 Rx Metoprolol Tartrate [Lopressor] 25 mg PO BID #180 tab 04/10/23 06/18/23 Rx predniSONE 50 mg PO DAILY #5 tab 06/15/23 06/18/23 Rx Nitroglycerin Sl Tabs [Nitrostat] 0.4 mg SL Q5M PRN 06/18/23 06/18/23 History Pregabalin [Lyrica] 150 mg PO BID 06/18/23 06/18/23 History predniSONE 10 mg PO DIRECTED 06/18/23 06/18/23 History Allergies Allergy/AdvReac Type Severity Reaction Status Date / Time No Known Allergies Allergy Verified 06/18/23 14:06 Physical Exam Vitals: Vital Signs Temp Pulse Pulse Resp BP BP Pulse Ox 06/20/23 13:08 97.9 F 76 20 104/55 95 06/20/23 12:41 70 06/20/23 12:31 70 06/20/23 08:41 68 06/20/23 08:26 65 97 06/20/23 07:17 98.0 F 66 20 135/67 96 06/20/23 01:54 97.5 F L 65 14 116/62 96 06/19/23 20:48 77 06/19/23 20:43 72 06/19/23 19:55 98.5 F 72 14 131/57 98 06/19/23 18:10 98.5 F 74 17 117/58 95 06/19/23 17:03 77 18 126/65 96 06/19/23 16:00 68 06/19/23 15:50 69 Intake and Output 06/19/23 06/20/23 06/20/23 22:59 06:59 14:59 Other: # Voids 1 Weight 90.718 kg GENERAL EXAM: Alert, 78-year-old male, on 2 L nasal cannula, comfortable in no apparent distress. HEAD: Normocephalic. EYES: Normal reaction of pupils, equal size. NOSE: Clear with pink turbinates. THROAT: No erythema or exudates. NECK: No masses, no JVD. CHEST: No chest wall deformity. LUNGS: Equal air entry with no crackles, wheeze, rhonchi or dullness. CVS: S1 and S2 normal with no audible murmur, regular rhythm. ABDOMEN: No hepatosplenomegaly, normal bowel sounds, no guarding or rigidity. SPINE: No scoliosis or deformity SKIN: No rashes CENTRAL NERVOUS SYSTEM: No focal deficits, tone is normal in all 4 extremities. EXTREMITIES: There is no peripheral edema. No clubbing, no cyanosis. Peripheral pulses are intact. Results - Laboratory Findings CBC and BMP: 06/20/23 07:43 06/20/23 07:43 PT/INR, D-dimer PT 10.3 sec (10.0-12.5) 06/18/23 15:37 INR 0.9 (<1.2) 06/18/23 15:37 D-Dimer 1.14 mg/L FEU (<0.60) H 06/18/23 15:37 Abnormal lab findings: Abnormal Labs 06/18/23 06/18/23 06/18/23 15:37 15:37 15:37 WBC Hgb 12.6 L Hct MCV 79.8 L MCH MCHC RDW 17.2 H Immature Gran # Neutrophils # 8.5 H Monocytes # Eosinophils # APTT 21.4 L D-Dimer 1.14 H Potassium 5.3 H Carbon Dioxide Anion Gap BUN 31 H Est GFR (CKD-EPI) BUN/Creatinine Ratio Glucose 237 H POC Glucose (mg/dL) 06/18/23 06/19/23 06/19/23 22:29 06:47 07:13 WBC 10.06 H Hgb 11.6 L Hct 37.2 L MCV MCH 25.0 L MCHC 31.2 L RDW 19.0 H Immature Gran # 0.19 H Neutrophils # 8.71 H Monocytes # 0.16 L Eosinophils # 0 L APTT D-Dimer Potassium Carbon Dioxide Anion Gap BUN Est GFR (CKD-EPI) BUN/Creatinine Ratio Glucose POC Glucose (mg/dL) 399 H 258 H 06/19/23 06/19/23 06/19/23 07:13 08:50 12:15 WBC Hgb Hct MCV MCH MCHC RDW Immature Gran # Neutrophils # Monocytes # Eosinophils # APTT D-Dimer Potassium Carbon Dioxide 18.6 L Anion Gap 19.40 H BUN 32.6 H Est GFR (CKD-EPI) 56 L BUN/Creatinine Ratio 25.08 H Glucose 261 H POC Glucose (mg/dL) 270 H 321 H 06/19/23 06/19/23 06/20/23 16:56 20:13 06:15 WBC Hgb Hct MCV MCH MCHC RDW Immature Gran # Neutrophils # Monocytes # Eosinophils # APTT D-Dimer Potassium Carbon Dioxide Anion Gap BUN Est GFR (CKD-EPI) BUN/Creatinine Ratio Glucose POC Glucose (mg/dL) 253 H 275 H 228 H 06/20/23 06/20/23 06/20/23 07:43 07:43 11:37 WBC 14.8 H Hgb 11.1 L Hct 36.7 L MCV MCH 24.9 L MCHC 30.1 L RDW 17.5 H Immature Gran # Neutrophils # 13.1 H Monocytes # Eosinophils # APTT D-Dimer Potassium Carbon Dioxide 19 L Anion Gap BUN 37 H Est GFR (CKD-EPI) BUN/Creatinine Ratio Glucose 286 H POC Glucose (mg/dL) 156 H - Diagnostic Findings Chest x-ray: image reviewed CT scan - chest: image reviewed Assessment and Plan Assessment: Chronic cough suspect secondary to gastroesophageal reflux disease. Chest x-ray clear. CT angiogram ruled out pulmonary embolism, lung rolon are clear Gastroesophageal reflux disease, ongoing Coronary artery disease with previous stent placements Diabetes mellitus with steroid-induced hyperglycemia Leukocytosis secondary to steroid use Hypertension Hyperlipidemia Lifelong non-smoker Plan: The patient was seen and evaluated CT angiogram, chest x-ray, labs and medications reviewed Add DuoNeb inhalations and Symbicort Continue steroids for now Increase Protonix to twice daily Titrate down the FiO2 as tolerated Increase his activity as tolerated Keep appointment in our office on July 01, 2023 post discharge We will continue to follow and make further recommendations based on his clinical status I have personally seen and examined the patient, performed the documentation and the assessment and plan as written. Number of minutes spent on the visit: 20.
[2023-06-20 16:43] LABS: Glucose,Whole Blood 200 mg/dL (70-110)
[2023-06-20] MEDS: PANTOPRAZOLE 40 MG TABLET PO SCH (16:49)
[2023-06-20 19:41] LABS: Glucose,Whole Blood 194 mg/dL (70-110)
[2023-06-20] MEDS: SYMBICORT 160-4.5 MCG INHALER INHALATION SCH (20:01)
[2023-06-21 05:35] LABS: Glucose,Whole Blood 167 mg/dL (70-110)
[2023-06-21 09:15] LABS: Basophils # (A) 0.02 X 10*3/uL (0.00-0.10); Basophils % (A) 0.2 %; Eosinophils # (A) 0 X 10*3/uL (0.04-0.35); Eosinophils % (A) 0 %; HCT 33.1 % (39.6-50.0); HGB 10.4 g/dL (13.0-17.0); Lymphocytes # (A) 1.07 X 10*3/uL (0.90-5.00); Lymphocytes % (A) 8.8 %; MCHC 31.4 g/dL (32.0-37.0); MCV 79.6 FL (80.0-97.0); Mean Platelet Volume 9.8 FL (9.5-12.2); Monocytes # (A) 0.28 X 10*3/uL (0.20-1.00); Monocytes % (A) 2.3 %; NRBC Per 100 WBC 0 X 10*3/uL (0.00-0.01); Neutrophils # (A) 10.64 X 10*3/uL (1.80-7.70); Neutrophils % (A) 87.1 %; Platelet Count 270 X 10*3/uL (140-440); RBC 4.16 X 10*6/uL (4.40-5.60); RDW 18.9 % (11.5-14.5)
[2023-06-21 11:22] LABS: Glucose,Whole Blood 222 mg/dL (70-110)
[2023-06-21 11:44] LABS: ALT 13 U/L (10-49); AST 9 U/L (14-35); Albumin 3.9 g/dL (3.8-4.9); Albumin/Globulin Ratio 1.77 Ratio (1.60-3.17); Alkaline Phosphatase 76 U/L (41-126); BUN/Creat Ratio 27.75 Ratio (12.00-20.00); Blood Urea Nitrogen 33.3 mg/dL (9.0-27.0); Calcium 8.8 mg/dL (8.7-10.3); Carbon Dioxide 21.7 mmol/L (21.6-31.8); Chloride 102 mmol/L (96-109); Globulin 2.2 g/dL (1.6-3.3); Glucose 161 mg/dL (70-110); Sodium 136 mmol/L (135-145); Total Bilirubin 0.3 mg/dL (0.3-1.2); Total Protein 6.1 g/dL (6.2-8.2)
--- NOTE | 2023-06-21 13:13 | P.PN ---
Subjective Progress Note Date: 06/21/23 Primitivo Benjamin, Is a 78-year-old male Who presented to [facility] emergency room With a chief complaint of worsening shortness of breath He was evaluated in the emergency room vital examination on presentation revealed a temperature of 97.7 pulse 89 respiration 20 blood pressure 182/75 pulse ox 99% on room air Laboratory data reveals a white blood count of 10.06 hemoglobin 11.6 platelet count 290 BUN 32.6 creatinine 1.3 troponin 0.012 BNP 603 d-dimer 1.14 Testing in the emergency room revealed CT angiogram of the chest was negative for pulmonary embolism Patient was admitted to medical floor for further evaluation and treatment on 06/21/2023 patient was seen and examined on the medical floor he is alert and oriented 3 in no apparent distress he is still complaining of cough and shortness of breath otherwise he denies any complaints there is no fever or chills no headache or dizziness no chest pain no nausea or vomiting no abdominal pain no diarrhea no blood in the stools no burning with urination no frequency or urgency and no hematuria, patient remains on IV steroids and inhaled bronchodilators, pulmonary input review, will follow in a.m.. Objective - Vital Signs Vital signs: Vital Signs Temp 97.8 F 06/21/23 07:00 Pulse 52 L 06/21/23 08:29 Resp 16 06/21/23 08:29 BP 123/61 06/21/23 07:00 Pulse Ox 96 06/21/23 07:00 FiO2 Intake & Output 06/20/23 06/21/23 06/21/23 18:59 06:59 18:59 Intake Total 220 Output Total 250 Balance -30 Intake: Oral 220 Output: Urine 250 Other: # Voids 1 - Exam In general patient is alert and oriented x 3 in no distress HEENT head normocephalic and atraumatic Neck is supple no JVD no goiter no lymphadenopathy no carotid bruit Chest examination reveals a scattered crackles bilaterally with wheezing and prolonged expiratory phase Cardiac exam reveals regular heart sounds S1 and S2 no gallops no murmurs Abdomen is soft nontender no organomegaly with normal bowel sounds Extremity exam reveals no edema no cyanosis or clubbing Neurological examination reveals no gross focal deficits - Labs CBC & Chem 7: 06/21/23 05:26 06/21/23 05:26 Labs: Abnormal Lab Results - Last 24 Hours (Table) 06/20/23 06/20/23 06/20/23 Range/Units 11:37 16:42 19:39 WBC (4.50-10.00) X 10*3/uL RBC (4.40-5.60) X 10*6/uL Hgb (13.0-17.0) g/dL Hct (39.6-50.0) % MCV (80.0-97.0) FL MCH (27.0-32.0) pg MCHC (32.0-37.0) g/dL RDW (11.5-14.5) % Immature Gran # (0.00-0.04) X 10*3/uL Neutrophils # (1.80-7.70) X 10*3/uL Eosinophils # (0.04-0.35) X 10*3/uL POC Glucose (mg/dL) 156 H 200 H 194 H (70-110) mg/dL 06/21/23 06/21/23 Range/Units 05:26 05:33 WBC 12.20 H (4.50-10.00) X 10*3/uL RBC 4.16 L (4.40-5.60) X 10*6/uL Hgb 10.4 L (13.0-17.0) g/dL Hct 33.1 L (39.6-50.0) % MCV 79.6 L (80.0-97.0) FL MCH 25.0 L (27.0-32.0) pg MCHC 31.4 L (32.0-37.0) g/dL RDW 18.9 H (11.5-14.5) % Immature Gran # 0.19 H (0.00-0.04) X 10*3/uL Neutrophils # 10.64 H (1.80-7.70) X 10*3/uL Eosinophils # 0 L (0.04-0.35) X 10*3/uL POC Glucose (mg/dL) 167 H (70-110) mg/dL Assessment and Plan Plan: acute exacerbation of asthma underlying history of hypertension Underlying history of hyperlipidemia Underlying history of insulin-dependent diabetes mellitus Underlying history of coronary artery disease Underlying history of benign prostatic hypertrophy At this time patient is admitted to medical floor Home medications reviewed and reordered Patient was started on IV Solu-Medrol in the emergency room, and inhaled bronchodilators No evidence of pneumonia no need for antibiotics at this time will monitor closely For DVT prophylaxis subcu Lovenox Pulmonary consultation requested
--- NOTE | 2023-06-21 14:09 | P.PN ---
Subjective Progress Note Date: 06/21/23 This is a 78-year-old male patient who has a history of hypertension, diabetes mellitus, hyperlipidemia, coronary artery disease with previous stent placements, chronic cough. He is a non-smoker. He does have a history of gastroesophageal reflux and issues with heartburn. He had been seen in the emergency room on 06/15/2023 and treated with antibiotics and steroids. He did not show much improvement and was back in the emergency room on 06/18/2023 with similar symptoms. He is seen today in consultation on the regular medical floor. He is currently sitting up in bed. Awake and alert in no acute d istress. Chest x-ray shows no acute process. CT angiogram ruled out pulmonary embolism. Lung rolon were clear. White count 14.8. Hemoglobin 11.1. Platelets 278. Sodium 137. Potassium 4.9. Bicarb 19. BUN 37. Creatinine 1.21. Glucose 286. He had been initiated on bronchodilators and steroids. The patient is seen today June 21, 2023 in follow-up on the regular medical floor. He is currently resting comfortably in bed. Awake and alert in no acute distress. Still with an occasional cough. Still with occasional wheeze. He is maintaining good O2 saturation in the 90s on room air. He is afebrile. Hemodynamically stable. White count 12.2. Hemoglobin 10.4. Platelets 270. Sodium 136. Potassium 5.0. Bicarb 22. BUN 33. Creatinine 1.2. Glucose 161. Continued on DuoNeb ventilations, Symbicort, Solu-Medrol. Lovenox for DVT prophylaxis. Objective - Vital Signs Vital signs: Vital Signs Temp 98.2 F 06/21/23 13:45 Pulse 54 L 06/21/23 13:45 Resp 16 06/21/23 13:45 BP 107/64 06/21/23 13:45 Pulse Ox 95 06/21/23 13:45 FiO2 Intake & Output 06/20/23 06/21/23 06/21/23 18:59 06:59 18:59 Intake Total 220 Output Total 250 Balance -30 Intake: Oral 220 Output: Urine 250 Other: # Voids 1 - Exam GENERAL EXAM: Alert, pleasant 78-year-old male, on room air, comfortable in no apparent distress. HEAD: Normocephalic. EYES: Normal reaction of pupils, equal size. NOSE: Clear with pink turbinates. THROAT: No erythema or exudates. NECK: No masses, no JVD. CHEST: No chest wall deformity. LUNGS: Equal air entry with faint end expiratory wheeze. CVS: S1 and S2 normal with no audible murmur, regular rhythm. ABDOMEN: No hepatosplenomegaly, normal bowel sounds, no guarding or rigidity. SPINE: No scoliosis or deformity SKIN: No rashes CENTRAL NERVOUS SYSTEM: No focal deficits, tone is normal in all 4 extremities. EXTREMITIES: There is no peripheral edema. No clubbing, no cyanosis. Peripheral pulses are intact. - Labs CBC & Chem 7: 06/21/23 05:26 06/21/23 05:26 Labs: Abnormal Lab Results - Last 24 Hours (Table) 06/20/23 06/20/23 06/21/23 Range/Units 16:42 19:39 05:26 WBC 12.20 H (4.50-10.00) X 10*3/uL RBC 4.16 L (4.40-5.60) X 10*6/uL Hgb 10.4 L (13.0-17.0) g/dL Hct 33.1 L (39.6-50.0) % MCV 79.6 L (80.0-97.0) FL MCH 25.0 L (27.0-32.0) pg MCHC 31.4 L (32.0-37.0) g/dL RDW 18.9 H (11.5-14.5) % Immature Gran # 0.19 H (0.00-0.04) X 10*3/uL Neutrophils # 10.64 H (1.80-7.70) X 10*3/uL Eosinophils # 0 L (0.04-0.35) X 10*3/uL Anion Gap (4.00-12.00) mmol/L BUN (9.0-27.0) mg/dL BUN/Creatinine Ratio (12.00-20.00) Ratio Glucose (70-110) mg/dL POC Glucose (mg/dL) 200 H 194 H (70-110) mg/dL AST (14-35) U/L Total Protein (6.2-8.2) g/dL 04/20/24 04/20/24 04/20/24 Range/Units 05:26 05:33 11:20 WBC (4.50-10.00) X 10*3/uL RBC (4.40-5.60) X 10*6/uL Hgb (13.0-17.0) g/dL Hct (39.6-50.0) % MCV (80.0-97.0) FL MCH (27.0-32.0) pg MCHC (32.0-37.0) g/dL RDW (11.5-14.5) % Immature Gran # (0.00-0.04) X 10*3/uL Neutrophils # (1.80-7.70) X 10*3/uL Eosinophils # (0.04-0.35) X 10*3/uL Anion Gap 12.30 H (4.00-12.00) mmol/L BUN 33.3 H (9.0-27.0) mg/dL BUN/Creatinine Ratio 27.75 H (12.00-20.00) Ratio Glucose 161 H (70-110) mg/dL POC Glucose (mg/dL) 167 H 222 H (70-110) mg/dL AST 9 L (14-35) U/L Total Protein 6.1 L (6.2-8.2) g/dL Assessment and Plan Assessment: Chronic cough suspect secondary to gastroesophageal reflux disease. Chest x-ray clear. CT angiogram ruled out pulmonary embolism, lung rolon are clear Gastroesophageal reflux disease, ongoing Coronary artery disease with previous stent placements Diabetes mellitus with steroid-induced hyperglycemia Leukocytosis secondary to steroid use Hypertension Hyperlipidemia Lifelong non-smoker Plan: The patient was seen and evaluated Labs and medications reviewed Continue bronchodilators, steroid Continue Protonix twice daily Increase his activity as tolerated Cleared for discharge from the pulmonary standpoint I have personally seen and examined the patient, performed the documentation and the assessment and plan as written. Number of minutes spent on the visit: 10.
[2023-06-21 16:24] LABS: Glucose,Whole Blood 148 mg/dL (70-110)
[2023-06-21 20:49] LABS: Glucose,Whole Blood 149 mg/dL (70-110)
[2023-06-22 06:48] LABS: Glucose,Whole Blood 237 mg/dL (70-110)
[2023-06-22 09:06] VITALS: BP 137/68; PULSE 59; RESP 18; TEMP 98
[2023-06-22 09:23] LABS: Basophils # (A) 0.03 X 10*3/uL (0.00-0.10); Basophils % (A) 0.3 %; Eosinophils # (A) 0.01 X 10*3/uL (0.04-0.35); Eosinophils % (A) 0.1 %; HCT 33.9 % (39.6-50.0); HGB 10.6 g/dL (13.0-17.0); Lymphocytes # (A) 0.89 X 10*3/uL (0.90-5.00); Lymphocytes % (A) 7.6 %; MCH 25.2 pg (27.0-32.0); MCHC 31.3 g/dL (32.0-37.0); MCV 80.5 FL (80.0-97.0); Mean Platelet Volume 10.4 FL (9.5-12.2); Monocytes # (A) 0.31 X 10*3/uL (0.20-1.00); Monocytes % (A) 2.6 %; NRBC Per 100 WBC 0 X 10*3/uL (0.00-0.01); Neutrophils # (A) 10.19 X 10*3/uL (1.80-7.70); Platelet Count 288 X 10*3/uL (140-440); RBC 4.21 X 10*6/uL (4.40-5.60); RDW 18.9 % (11.5-14.5); WBC 11.71 X 10*3/uL (4.50-10.00)
[2023-06-22 10:10] LABS: ALT 15 U/L (10-49); AST 9 U/L (14-35); Albumin 3.9 g/dL (3.8-4.9); Albumin/Globulin Ratio 1.86 Ratio (1.60-3.17); Alkaline Phosphatase 72 U/L (41-126); Calcium 8.7 mg/dL (8.7-10.3); Carbon Dioxide 19.2 mmol/L (21.6-31.8); Chloride 99 mmol/L (96-109); Globulin 2.1 g/dL (1.6-3.3); Glucose 225 mg/dL (70-110); Sodium 134 mmol/L (135-145); Total Bilirubin 0.3 mg/dL (0.3-1.2)
--- NOTE | 2023-06-22 10:21 | P.DS ---
Providers Date of admission: 06/18/23 18:40 Expected date of discharge: 06/22/23 Attending physician: Pete Fountain Consults: 06/19/23 16:57 Consult Physician Routine Consulting Provider: Meaghan Juarez Consult Reason/Comments: asthma Do you want consulting provider notified?: Yes Primary care physician: Pete Fountain [place] [facility] Course: discharge diagnosis acute exacerbation of asthma underlying history of hypertension Underlying history of hyperlipidemia Underlying history of insulin-dependent diabetes mellitus Underlying history of coronary artery disease Underlying history of benign prostatic hypertrophy Hospital course Primitivo Benjamin, Is a 78-year-old male Who presented to [facility] emergency room With a chief complaint of worsening shortness of breath He was evaluated in the emergency room vital examination on presentation revealed a temperature of 97.7 pulse 89 respiration 20 blood pressure 182/75 pulse ox 99% on room air Laboratory data reveals a white blood count of 10.06 hemoglobin 11.6 platelet count 290 BUN 32.6 creatinine 1.3 troponin 0.012 BNP 603 d-dimer 1.14 Testing in the emergency room revealed CT angiogram of the chest was negative for pulmonary embolism Patient was admitted to medical floor for further evaluation and treatment on 06/21/2023 patient was seen and examined on the medical floor he is alert and oriented 3 in no apparent distress he is still complaining of cough and shortness of breath otherwise he denies any complaints there is no fever or chills no headache or dizziness no chest pain no nausea or vomiting no abdominal pain no diarrhea no blood in the stools no burning with urination no frequency or urgency and no hematuria, patient remains on IV steroids and inhaled bronchodilators, pulmonary input review, will follow in a.m.. On 06/22/2023 patient's alert and oriented 3 patient has been cleared for discharge from pulmonary standpoint will follow up outpatient. Patient will be DC'd on prednisone taper. Patient stresses that he feels ready to be DC'd home. Patient denies chest pain or shortness of breath. Patient denies nausea vomiting or diarrhea. Patient denies any urinary burning or frequency Patient Condition at Discharge: Stable Plan - Discharge Summary New Discharge Prescriptions: New predniSONE 10 mg PO DIRECTED 12 Days #30 tab Continue glipiZIDE [Glucotrol] 10 mg PO DAILY amLODIPine BESYLATE [Norvasc] 10 mg PO DAILY metFORMIN HCL [Glucophage] 1,000 mg PO BID #0 Insulin Glargine [Lantus Vial] 70 - 75 unit SQ HS INSULIN LISPRO (humaLOG) [humaLOG] 20 - 25 units SQ AC-TID Tamsulosin HCl [Flomax] 0.4 mg PO HS Metoprolol Tartrate [Lopressor] 25 mg PO BID #180 tab Pregabalin [Lyrica] 150 mg PO BID Isosorbide Mononitrate ER [Imdur] 60 mg PO DAILY Atorvastatin [Lipitor] 40 mg PO DAILY Omeprazole [PriLOSEC] 20 mg PO BID Valsartan [Diovan] 40 mg PO DAILY Clopidogrel [Plavix] 75 mg PO DAILY #90 tab Nitroglycerin Sl Tabs [Nitrostat] 0.4 mg SL Q5M PRN PRN Reason: Chest Pain Discontinued predniSONE 50 mg PO DAILY #5 tab predniSONE 10 mg PO DIRECTED Discharge Medication List glipiZIDE [Glucotrol] 10 mg PO DAILY 01/17/14 [History] amLODIPine BESYLATE [Norvasc] 10 mg PO DAILY 04/19/14 [History] metFORMIN HCL [Glucophage] 1,000 mg PO BID #0 10/18/17 [Rx] Insulin Glargine [Lantus Vial] 70 - 75 unit SQ HS 07/20/19 [History] INSULIN LISPRO (humaLOG) [humaLOG] 20 - 25 units SQ AC-TID 01/09/20 [History] Tamsulosin HCl [Flomax] 0.4 mg PO HS 01/09/20 [History] Atorvastatin [Lipitor] 40 mg PO DAILY 09/19/22 [History] Isosorbide Mononitrate ER [Imdur] 60 mg PO DAILY 09/19/22 [History] Omeprazole [PriLOSEC] 20 mg PO BID 11/21/22 [History] Valsartan [Diovan] 40 mg PO DAILY 04/07/23 [History] Clopidogrel [Plavix] 75 mg PO DAILY #90 tab 04/10/23 [Rx] Metoprolol Tartrate [Lopressor] 25 mg PO BID #180 tab 04/10/23 [Rx] Nitroglycerin Sl Tabs [Nitrostat] 0.4 mg SL Q5M PRN 06/18/23 [History] Pregabalin [Lyrica] 150 mg PO BID 06/18/23 [History] predniSONE 10 mg PO DIRECTED 12 Days #30 tab 06/22/23 [Rx] Follow up Appointment(s)/Referral(s): Meaghan Juarez MD [STAFF PHYSICIAN] - 1 Week Pete Fountain MD [Primary Care Provider] - 1-2 days Activity/Diet/Wound Care/Special Instructions: Activity as tolerated Diet heart healthy Discharge Disposition: HOME SELF-CARE
--- NOTE | 2023-06-22 13:02 | P.PN ---
Subjective Progress Note Date: 06/22/23 This is a 78-year-old male patient who has a history of hypertension, diabetes mellitus, hyperlipidemia, coronary artery disease with previous stent placements, chronic cough. He is a non-smoker. He does have a history of gastroesophageal reflux and issues with heartburn. He had been seen in the emergency room on 06/15/2023 and treated with antibiotics and steroids. He did not show much improvement and was back in the emergency room on 06/18/2023 with similar symptoms. He is seen today in consultation on the regular medical floor. He is currently sitting up in bed. Awake and alert in no acute d istress. Chest x-ray shows no acute process. CT angiogram ruled out pulmonary embolism. Lung rolon were clear. White count 14.8. Hemoglobin 11.1. Platelets 278. Sodium 137. Potassium 4.9. Bicarb 19. BUN 37. Creatinine 1.21. Glucose 286. He had been initiated on bronchodilators and steroids. The patient is seen today June 21, 2023 in follow-up on the regular medical floor. He is currently resting comfortably in bed. Awake and alert in no acute distress. Still with an occasional cough. Still with occasional wheeze. He is maintaining good O2 saturation in the 90s on room air. He is afebrile. Hemodynamically stable. White count 12.2. Hemoglobin 10.4. Platelets 270. Sodium 136. Potassium 5.0. Bicarb 22. BUN 33. Creatinine 1.2. Glucose 161. Continued on DuoNeb ventilations, Symbicort, Solu-Medrol. Lovenox for DVT prophylaxis. The patient is seen today June 22, 2023 in follow-up on the regular medical floor. He is resting comfortably in bed. Awake and alert in no acute distress. He denies any worsening shortness of breath, cough or congestion. He has been afebrile. Hemodynamically stable. White count 11.7. Hemoglobin 10.6. Platelets 288. Sodium 134. Potassium 5.0. Bicarb 19. BUN 33. Creatinine 1.2. Glucose 225. He remains on DuoNeb ventilations, Symbicort, Solu-Medrol. Objective - Vital Signs Vital signs: Vital Signs Temp 98.0 F 06/22/23 07:39 Pulse 68 06/22/23 08:28 Resp 18 06/22/23 07:42 BP 137/68 06/22/23 07:39 Pulse Ox 96 06/22/23 07:39 FiO2 Intake & Output 06/21/23 06/22/23 06/22/23 18:59 06:59 18:59 Other: # Voids 5 6 # Bowel Movements 1 - Exam GENERAL EXAM: Alert, 78-year-old male, on room air, in no apparent distress. HEAD: Normocephalic. EYES: Normal reaction of pupils, equal size. NOSE: Clear with pink turbinates. THROAT: No erythema or exudates. NECK: No masses, no JVD. CHEST: No chest wall deformity. LUNGS: Equal air entry with faint end expiratory wheeze. CVS: S1 and S2 normal with no audible murmur, regular rhythm. ABDOMEN: No hepatosplenomegaly, normal bowel sounds, no guarding or rigidity. SPINE: No scoliosis or deformity SKIN: No rashes CENTRAL NERVOUS SYSTEM: No focal deficits, tone is normal in all 4 extremities. EXTREMITIES: There is no peripheral edema. No clubbing, no cyanosis. Peripheral pulses are intact. - Labs CBC & Chem 7: 06/22/23 05:21 06/22/23 05:21 Labs: Abnormal Lab Results - Last 24 Hours (Table) 06/21/23 06/21/23 06/22/23 Range/Units 16:22 20:47 05:21 WBC 11.71 H (4.50-10.00) X 10*3/uL RBC 4.21 L (4.40-5.60) X 10*6/uL Hgb 10.6 L (13.0-17.0) g/dL Hct 33.9 L (39.6-50.0) % MCH 25.2 L (27.0-32.0) pg MCHC 31.3 L (32.0-37.0) g/dL RDW 18.9 H (11.5-14.5) % Immature Gran # 0.28 H (0.00-0.04) X 10*3/uL Neutrophils # 10.19 H (1.80-7.70) X 10*3/uL Lymphocytes # 0.89 L (0.90-5.00) X 10*3/uL Eosinophils # 0.01 L (0.04-0.35) X 10*3/uL Sodium (135-145) mmol/L Carbon Dioxide (21.6-31.8) mmol/L Anion Gap (4.00-12.00) mmol/L BUN (9.0-27.0) mg/dL BUN/Creatinine Ratio (12.00-20.00) Ratio Glucose (70-110) mg/dL POC Glucose (mg/dL) 148 H 149 H (70-110) mg/dL AST (14-35) U/L Total Protein (6.2-8.2) g/dL 06/22/23 06/22/23 Range/Units 05:21 06:44 WBC (4.50-10.00) X 10*3/uL RBC (4.40-5.60) X 10*6/uL Hgb (13.0-17.0) g/dL Hct (39.6-50.0) % MCH (27.0-32.0) pg MCHC (32.0-37.0) g/dL RDW (11.5-14.5) % Immature Gran # (0.00-0.04) X 10*3/uL Neutrophils # (1.80-7.70) X 10*3/uL Lymphocytes # (0.90-5.00) X 10*3/uL Eosinophils # (0.04-0.35) X 10*3/uL Sodium 134 L (135-145) mmol/L Carbon Dioxide 19.2 L (21.6-31.8) mmol/L Anion Gap 15.80 H (4.00-12.00) mmol/L BUN 33.0 H (9.0-27.0) mg/dL BUN/Creatinine Ratio 27.50 H (12.00-20.00) Ratio Glucose 225 H (70-110) mg/dL POC Glucose (mg/dL) 237 H (70-110) mg/dL AST 9 L (14-35) U/L Total Protein 6.0 L (6.2-8.2) g/dL Assessment and Plan Assessment: Chronic cough suspect secondary to gastroesophageal reflux disease. Chest x-ray clear. CT angiogram ruled out pulmonary embolism, lung rolon are clear Gastroesophageal reflux disease, ongoing Coronary artery disease with previous stent placements Diabetes mellitus with steroid-induced hyperglycemia Leukocytosis secondary to steroid use Hypertension Hyperlipidemia Lifelong non-smoker Plan: The patient was seen and evaluated Labs and medications reviewed Stable and on room air Continue bronchodilators, steroids Continue Protonix twice daily Cleared for discharge from the pulmonary standpoint This patient was seen independently by the pulmonary nurse practitioner addressing pulmonary issues I have personally seen and examined the patient, performed the documentation and the assessment and plan as written. Number of minutes spent on the visit: 23.
== END 2023-06-22 11:54 | disposition home or self-care (01) ==
LOC: EC 13:59 → 6NMEDSUR 18:40 → 4SSUR 06-19 04:22
PROVIDERS: ADMIT Internal Medicine; ATTEND Internal Medicine
DX: J45.901 Unspecified asthma with (acute) exacerbation (principal); I10 Essential (primary) hypertension; E78.5 Hyperlipidemia, unspecified; I25.10 Atherosclerotic heart disease of native coronary artery without angina pectoris; N40.0 Benign prostatic hyperplasia without lower urinary tract symptoms; R05.3 Chronic cough; K21.9 Gastro-esophageal reflux disease without esophagitis; E09.65 Drug or chemical induced diabetes mellitus with hyperglycemia; T38.0X5A Adverse effect of glucocorticoids and synthetic analogues, initial encounter; D72.829 Elevated white blood cell count, unspecified; H91.90 Unspecified hearing loss, unspecified ear; M54.9 Dorsalgia, unspecified; E11.40 Type 2 diabetes mellitus with diabetic neuropathy, unspecified; G89.4 Chronic pain syndrome; Z79.899 Other long term (current) drug therapy; Z79.84 Long term (current) use of oral hypoglycemic drugs; Z79.4 Long term (current) use of insulin; Z79.02 Long term (current) use of antithrombotics/antiplatelets; Z95.5 Presence of coronary angioplasty implant and graft
CPT/HCPCS: 96376 ×5; 96365; 96372 ×3; 96375; 99285; 36415; 94640 ×9; 94760 ×2; 93005; 85379; 83880; 80053 ×4; 80048; 83605; 84484; 85025 ×5; 85610; 85730; 71046; 71275; G0378 ×5; J1650 ×3; J3475; Q9967; J2919 ×6

== ENCOUNTER → 2023-07-14 | Outpatient (CLI) | payer MEDICARE ==
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
== END | disposition home or self-care (01) ==
LOC: RADUSWWP 10:51
PROVIDERS: ATTEND Internal Medicine
DX: J98.6 Disorders of diaphragm (principal)
CPT/HCPCS: 76000

== ENCOUNTER 2023-08-02 13:51 | Observation (INO) | payer MEDICARE ==
[2023-08-02 14:35] LABS: Anisocytosis Slight; HCT 34.7 % (39.0-53.0); HGB 11.3 gm/dL (13.0-17.5); Lymphocytes % (A) 23 %; MCH 26.7 pg (25.0-35.0); MCHC 32.7 g/dL (31.0-37.0); MCV 81.6 fL (80.0-100.0); Mean Platelet Volume 7.6; Microcytosis Slight; Monocytes % (A) 8 %; Neutrophils % (A) 63 %; Platelet Count 257 k/uL (150-450); RBC 4.25 m/uL (4.30-5.90); RDW 18.6 % (11.5-15.5); WBC 9.6 k/uL (3.8-10.6)
[2023-08-02 14:36] LABS: Basophils # (A) 0.1 k/uL (0-0.2); Basophils % (A) 1 %; Eosinophils # (A) 0.4 k/uL (0-0.7); Eosinophils % (A) 4 %; Lymphocytes # (A) 2.2 k/uL (1.0-4.8); Monocytes # (A) 0.7 k/uL (0-1.0)
--- NOTE | 2023-08-02 14:39 | ED ---
General Adult HPI - General Chief complaint: Chest Pain Stated complaint: Chest pain Time Seen by Provider: 08/02/23 14:03 Source: patient, RN notes reviewed Mode of arrival: ambulatory Limitations: physical limitation - History of Present Illness Initial comments: Patient is a 78-year-old male present to the emergency department chest discomfort. Onset of symptoms was prior to arrival. Discomfort was intense however resolved after 2 nitroglycerin. Patient does have history of previous stents however symptoms were not quite the same as this. Discomfort felt like tightness. Patient did have some associated sweatiness. No nausea or vomiting. No dyspnea. Currently symptom-free. - Related Data Home Medications Medication Instructions Recorded Confirmed glipiZIDE [Glucotrol] 10 mg PO DAILY 01/17/14 08/02/23 amLODIPine BESYLATE [Norvasc] 10 mg PO DAILY 04/19/14 08/02/23 Insulin Glargine [Lantus Vial] 70 - 75 unit SQ HS 07/20/19 08/02/23 INSULIN LISPRO (humaLOG) [humaLOG] 20 - 25 units SQ AC-TID 01/09/20 08/02/23 Tamsulosin HCl [Flomax] 0.4 mg PO HS 01/09/20 08/02/23 Atorvastatin [Lipitor] 40 mg PO DAILY 09/19/22 08/02/23 Isosorbide Mononitrate ER [Imdur] 60 mg PO DAILY 09/19/22 08/02/23 Omeprazole [PriLOSEC] 20 mg PO BID 11/21/22 08/02/23 Valsartan [Diovan] 40 mg PO DAILY 04/07/23 08/02/23 Nitroglycerin Sl Tabs [Nitrostat] 0.4 mg SL Q5M PRN 06/18/23 08/02/23 Pregabalin [Lyrica] 150 mg PO BID 06/18/23 08/02/23 Previous Rx's Medication Instructions Recorded metFORMIN HCL [Glucophage] 1,000 mg PO BID #0 10/18/17 Clopidogrel [Plavix] 75 mg PO DAILY #90 tab 04/10/23 Metoprolol Tartrate [Lopressor] 25 mg PO BID #180 tab 04/10/23 Allergies Allergy/AdvReac Type Severity Reaction Status Date / Time No Known Allergies Allergy Verified 08/02/23 17:11 Review of Systems ROS Statement: Those systems with pertinent positive or pertinent negative responses have been documented in the HPI. ROS Other: All systems not noted in ROS Statement are negative. Constitutional: Denies: fever Eyes: Denies: eye pain ENT: Denies: ear pain Respiratory: Denies: cough, dyspnea Cardiovascular: Reports: as per HPI, chest pain Gastrointestinal: Denies: abdominal pain Musculoskeletal: Denies: back pain Past Medical History Past Medical History: Asthma, Coronary Artery Disease (CAD), Chest Pain / Angina, Diabetes Mellitus, GERD/Reflux, Hearing Disorder / Deafness, Hyperlipidemia, Hypertension Additional Past Medical History / Comment(s): IDDM. Hx chronic back pain, chronic pain syndrome. Neuropathy bilateral feet, [place]/uses hearing aids bilaterally. History of Any Multi-Drug Resistant Organisms: None Reported Past Surgical History: Heart Catheterization With Stent Additional Past Surgical History / Comment(s): trigger 2nd digit left hand 12-13-19, trigger finger release rt hand,Cervical fusion, back lami/injections, carpal tunnel surgery, colonoscopy/benign polypectomy. 3 stents placed 05/2021 Past Anesthesia/Blood Transfusion Reactions: No Reported Reaction Additional Past Anesthesia/Blood Transfusion Reaction / Comment(s): no problems with prior blood transfusion. Date of Last Stent Placement:: 2019 x1 stent Past Psychological History: No Psychological Hx Reported Smoking Status: Never smoker Past Alcohol Use History: None Reported Past Drug Use History: None Reported - Past Family History Father Family Medical History: Myocardial Infarction ([place]) Additional Family Medical History / Comment(s): Passed at age 72. Mother Family Medical History: Myocardial Infarction ([place]) Additional Family Medical History / Comment(s): Passed at age 77. Brother(s) Family Medical History: Myocardial Infarction ([place]) Additional Family Medical History / Comment(s): 3 brothers passed from [place] in 50's. Sister(s) Family Medical History: Myocardial Infarction ([place]) Additional Family Medical History / Comment(s): sister 50s General Exam Limitations: no limitations General appearance: alert, in no apparent distress Head exam: Present: normocephalic Eye exam: Present: normal appearance Neck exam: Present: normal inspection Respiratory exam: Present: normal lung sounds bilaterally. Absent: chest wall tenderness Cardiovascular Exam: Present: regular rate, normal rhythm, normal heart sounds Expanded Peripheral pulses: 2+: Radial (R), Radial (L), Posterior Tibialis (R), Posterior Tibialis (L) GI/Abdominal exam: Present: soft. Absent: tenderness Extremities exam: Present: normal inspection. 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 sent in by a medical professional or institution (Dr. PA, SPECIAL PROGRAMS DIRECTOR, urgent care, hospital, or halfway...) When possible be specific @ -No Did you speak to anyone other than the patient for history (EMS, parent, family, police, friend...)? What history was obtained from this source @ -Family is present and helps provide history the patient did take nitroglycerin Did you review nursing and triage notes (agree or disagree)? Why? @ -I reviewed and agree with nursing and triage notes Were old charts reviewed (outside hosp., previous admission, EMS record, old EKG, old radiological studies, urgent care reports/EKG's, halfway records)? Report findings @ -No old charts were reviewed Differential Diagnosis (chest pain, altered mental status, abdominal pain women, abdominal pain men, vaginal bleeding, weakness, fever, dyspnea, syncope, headache, dizziness, GI bleed, back pain, seizure, CVA, palpatations, mental health, musculoskeletal)? @ -Differential Chest Pain: Stable Angina, Unstable Angina, STEMI, NSTEMI Aortic Dissection, Pneumothorax, Musculoskeletal, Esophageal Spasm GERD, Cholecystitis, Pancreatitis, Zoster, this is not meant to be an all-inclusive list. EKG interpreted by me (3pts min.). @ -As above X-rays interpreted by me (1pt min.). @ -Chest x-ray shows no acute process CT interpreted by me (1pt min.). @ -ET scan without evidence of pulmonary embolism. There may be mild fluid overload U/S interpreted by me (1pt. min.). @ -None done What testing was considered but not performed or refused? (CT, X-rays, U/S, labs)? Why? @ -None What meds were considered but not given or refused? Why? @ -None Did you discuss the management of the patient with other professionals (professionals i.e. Dr., PA, SPECIAL PROGRAMS DIRECTOR, lab, RT, psych nurse, social media project manager, art conservator, teacher, investigation officer, watch caser)? Give summary @ -Dr. Fountain who will admit his patient Dr. Ellison with radiology and reviewed the films who agrees no pulmonary embolism Was smoking cessation discussed for >3mins.? @ -No Was critical care preformed (if so, how long)? @ -No Were there social determinants of health that impacted care today? How? (Homelessness, low income, unemployed, alcoholism, drug addiction, transportation, low edu. Level, literacy, decrease access to med. care, halfway, rehab)? @ -No Was there de-escalation of care discussed even if they declined (Discuss DNR or withdrawal of care, Hospice)? DNR status @ -No What co-morbidities impacted this encounter? (DM, HTN, Smoking, COPD, CAD, Cancer, CVA, ARF, Chemo, Hep., AIDS, mental health diagnosis, sleep apnea, morbid obesity)? @ -None Was patient admitted / discharged? Hospital course, mention meds given and route, prescriptions, significant lab abnormalities, going to OR and other pertinent info. @ -Patient reevaluated and remains symptom-free. Patient will be admitted with cardiac consult. Admission orders written. Undiagnosed new problem with uncertain prognosis? @ -No Drug Therapy requiring intensive monitoring for toxicity (Heparin, Nitro, Insulin, Cardizem)? @ -No Were any procedures done? @ -No Diagnosis/symptom? @ -Chest pain Acute, or Chronic, or Acute on Chronic? @ -Acute Uncomplicated (without systemic symptoms) or Complicated (systemic symptoms)? @ -Default Side effects of treatment? @ -No Exacerbation, Progression, or Severe Exacerbation? @ -No Poses a threat to life or bodily function? How? (Chest pain, [place], [place], pneumonia, PE, COPD, DKA, ARF, appy, cholecystitis, CVA, Diverticulitis, Homicidal, Suicidal, threat to staff... and all critical care pts) @ -No - Lab Data Result diagrams: 08/02/23 14:22 08/02/23 14:22 Lab Results 08/02/23 08/02/23 08/02/23 Range/Units 14:22 14:22 14:22 WBC 9.6 (3.8-10.6) k/uL RBC 4.25 L (4.30-5.90) m/uL Hgb 11.3 L (13.0-17.5) gm/dL Hct 34.7 L (39.0-53.0) % MCV 81.6 (80.0-100.0) fL MCH 26.7 (25.0-35.0) pg MCHC 32.7 (31.0-37.0) g/dL RDW 18.6 H (11.5-15.5) % Plt Count 257 (150-450) k/uL MPV 7.6 Neutrophils % 63 % Lymphocytes % 23 % Monocytes % 8 % Eosinophils % 4 % Basophils % 1 % Neutrophils # 6.0 (1.3-7.7) k/uL Lymphocytes # 2.2 (1.0-4.8) k/uL Monocytes # 0.7 (0-1.0) k/uL Eosinophils # 0.4 (0-0.7) k/uL Basophils # 0.1 (0-0.2) k/uL Anisocytosis Slight Microcytosis Slight PT 10.5 (10.0-12.5) sec INR 1.0 (<1.2) APTT 22.6 (22.0-30.0) sec D-Dimer 1.16 H (<0.60) mg/L FEU Sodium 138 (137-145) mmol/L Potassium 4.6 (3.5-5.1) mmol/L Chloride 107 (98-107) mmol/L Carbon Dioxide 22 (22-30) mmol/L Anion Gap 9 mmol/L BUN 36 H (9-20) mg/dL Creatinine 1.57 H (0.66-1.25) mg/dL Est GFR (CKD-EPI)AfAm 48 (>60 ml/min/1.73 sqM) Est GFR (CKD-EPI)NonAf 41 (>60 ml/min/1.73 sqM) Glucose 176 H (74-99) mg/dL Calcium 8.8 (8.4-10.2) mg/dL Magnesium 1.7 (1.6-2.3) mg/dL Total Bilirubin 0.6 (0.2-1.3) mg/dL AST 21 (17-59) U/L ALT 22 (4-49) U/L Alkaline Phosphatase 72 (38-126) U/L Troponin I (0.000-0.034) ng/mL Total Protein 6.5 (6.3-8.2) g/dL Albumin 4.1 (3.5-5.0) g/dL 08/02/23 Range/Units 14:22 WBC (3.8-10.6) k/uL RBC (4.30-5.90) m/uL Hgb (13.0-17.5) gm/dL Hct (39.0-53.0) % MCV (80.0-100.0) fL MCH (25.0-35.0) pg MCHC (31.0-37.0) g/dL RDW (11.5-15.5) % Plt Count (150-450) k/uL MPV Neutrophils % % Lymphocytes % % Monocytes % % Eosinophils % % Basophils % % Neutrophils # (1.3-7.7) k/uL Lymphocytes # (1.0-4.8) k/uL Monocytes # (0-1.0) k/uL Eosinophils # (0-0.7) k/uL Basophils # (0-0.2) k/uL Anisocytosis Microcytosis PT (10.0-12.5) sec INR (<1.2) APTT (22.0-30.0) sec D-Dimer (<0.60) mg/L FEU Sodium (137-145) mmol/L Potassium (3.5-5.1) mmol/L Chloride (98-107) mmol/L Carbon Dioxide (22-30) mmol/L Anion Gap mmol/L BUN (9-20) mg/dL Creatinine (0.66-1.25) mg/dL Est GFR (CKD-EPI)AfAm (>60 ml/min/1.73 sqM) Est GFR (CKD-EPI)NonAf (>60 ml/min/1.73 sqM) Glucose (74-99) mg/dL Calcium (8.4-10.2) mg/dL Magnesium (1.6-2.3) mg/dL Total Bilirubin (0.2-1.3) mg/dL AST (17-59) U/L ALT (4-49) U/L Alkaline Phosphatase (38-126) U/L Troponin I <0.012 (0.000-0.034) ng/mL Total Protein (6.3-8.2) g/dL Albumin (3.5-5.0) g/dL Disposition Clinical Impression: Chest pain Disposition: ADMITTED IP TO THIS HOSP Is patient prescribed a controlled substance at d/c from ED?: No Referrals: Pete Fountain MD [Primary Care Provider] - 1-2 days Time of Disposition: 17:55
[2023-08-02 14:46] LABS: ALT 22 U/L (4-49); AST 21 U/L (17-59); African American GFR (CKD) 48 (>60 ml/min/1.73 sqM); Albumin 4.1 g/dL (3.5-5.0); Alkaline Phosphatase 72 U/L (38-126); Anion Gap 9 mmol/L; Blood Urea Nitrogen 36 mg/dL (9-20); Calcium 8.8 mg/dL (8.4-10.2); Carbon Dioxide 22 mmol/L (22-30); Chloride 107 mmol/L (98-107); Glucose 176 mg/dL (74-99); Magnesium 1.7 mg/dL (1.6-2.3); Non-African American GFR(CKD) 41 (>60 ml/min/1.73 sqM); Potassium 4.6 mmol/L (3.5-5.1); Sodium 138 mmol/L (137-145); Total Bilirubin 0.6 mg/dL (0.2-1.3); Total Protein 6.5 g/dL (6.3-8.2)
--- NOTE | 2023-08-02 14:47 | XR ---
EXAMINATION TYPE: XR chest 2V DATE OF EXAM: 08/02/2023 COMPARISON: 06/18/2023 INDICATION: Chest pain TECHNIQUE: Frontal and lateral views of the chest are obtained. FINDINGS: The heart size is normal. The pulmonary vasculature is normal. The lungs are clear. IMPRESSION: 1. No acute pulmonary process.
[2023-08-02 14:50] LABS: Partial Thromboplastin Time 22.6 sec (22.0-30.0); Prothrombin Time 10.5 sec (10.0-12.5)
[2023-08-02] MEDS: NITROGLYCERIN OINT 1 INCH/GM PACKET TOPICAL STA (14:52)
[2023-08-02] MEDS: ASPIRIN 81 MG PO STA (14:52)
--- NOTE | 2023-08-02 16:16 | CT ---
CTA CHEST EXAMINATION TYPE: CT angio chest DATE OF EXAM: 08/02/2023 INDICATION: CHEST PAIN CT DLP: 595.8 mGycm, Automated exposure control for dose reduction was used. CONTRAST: Patient injected with 100 ml mL of Isovue 370. COMPARISON: 12/05/2020 TECHNIQUE: CT of the chest is performed on a spiral scan at 2 mm thick sections. Study is performed with intravenous contrast timed for evaluation for pulmonary embolism. This will limit additional po rtions of the evaluation. 3-D MIP images reconstructed by the technologist are reviewed on the compu ter in the coronal and sagittal planes. FINDINGS: No persistent filling defects are evident to suggest an acute pulmonary embolism. No mediastinal or hilar adenopathy enlarged by CT criteria is evident. The ascending aorta diameter at the level of the main pulmonary artery is 3.3 cm. The main pulmonary artery diameter at the bifurcation is 2.8 cm. Lung windows are clear. No suspicious consolidations. Minimal groundglass opacities may be present cornejo ggesting early volume overload Limited CT sections were through the upper abdomen. Upper abdomen appears unremarkable. IMPRESSION: 1. Acute pulmonary embolism. 2. Some minimal volume overload is not excluded. 2 pulmonary process not otherwise evident.
[2023-08-02] MEDS: SODIUM CHLORIDE 0.9% 500 ML 500 ML IV STA (17:18)
[2023-08-02] MEDS ORDERED: NITROGLYCERIN SL TABS 0.4 MG TAB SUBLINGUAL PRN (17:55)
[2023-08-02] MEDS ORDERED: NITROGLYCERIN OINT 1 INCH/GM PACKET TOPICAL SCH (18:00)
[2023-08-02 20:41] LABS: Glucose,Whole Blood 342 mg/dL (70-110)
[2023-08-02] MEDS ORDERED: metFORMIN 500 MG TAB PO SCH (21:00)
[2023-08-02] MEDS: METOPROLOL TARTRATE 25 MG TAB PO SCH (21:24)
[2023-08-02] MEDS: ENOXAPARIN 40 MG/0.4 ML SYRINGE SQ SCH (21:24)
[2023-08-02] MEDS: PREGABALIN 75 MG CAP PO SCH (21:25)
[2023-08-02] MEDS: PANTOPRAZOLE 40 MG TABLET PO SCH (21:25)
[2023-08-02] MEDS: TAMSULOSIN 0.4 MG CAP.ER.24H PO SCH (21:25)
[2023-08-02] MEDS: NITROGLYCERIN OINT 1 INCH/GM PACKET TOPICAL SCH (21:28)
[2023-08-02] MEDS ORDERED: DEXTROSE 50% SYRINGE 50 ML IVP PRN ×2 (21:35)
[2023-08-02] MEDS: INSULIN ASPART (NovoLOG) 100 UNIT/ML VIAL SQ SCH (22:09)
[2023-08-02] MEDS: INSULIN DETEMIR (LEVEMIR) 100 UNIT/ML SYR SQ SCH (22:10)
[2023-08-03 05:45] LABS: Glucose,Whole Blood 83 mg/dL (70-110)
[2023-08-03] MEDS: INSULIN ASPART (NovoLOG) 100 UNIT/ML VIAL SQ SCH (06:13)
[2023-08-03] MEDS ORDERED: ASPIRIN 325 MG TAB PO SCH (09:00)
--- NOTE | 2023-08-03 09:32 | P.HPIM ---
History of Present Illness H&P Date: 08/02/23 Primitivo Benjamin, Is a 78-year-old male who presented to [facility] emergency room with a chief complaint of chest pain, patient describes a sharp pain in the lower substernal area that lasted about 10 minutes, he stated that he took 2 sublingual nitroglycerin and the pain was relieved, he did not have any further episodes of chest pain. He was evaluated in the emergency room vital examination on presentation revealed a temperature of 97.8 pulse 75 respiration 18 blood pressure 115/54 pulse ox 100% on room air Laboratory data revealed a white blood count of 9.6 hemoglobin 11.3 platelet count 257 D-dimer 1.16 BUN 36 creatinine 1.57 troponin level 0.012 Testing in the emergency room revealed EKG done in the emergency room revealed sinus rhythm no acute ischemic changes, chest x-ray revealed no acute pulmonary process, CT angiogram of the chest revealed no acute pulmonary embolism, with minimal volume overload. Patient was admitted to medical floor for further evaluation and treatment, cardiology consultation was requested Past medical history is significant for history of hypertension, history of insulin-dependent diabetes mellitus, history of hyperlipidemia, history of coronary artery disease, with previous history of cardiac catheterization with angioplasty and stent placement, last stent placement was March 2023, history of benign prostatic hypertrophy, history of gastroesophageal reflux disease On review of systems patient is alert and oriented x 3 in no apparent distress, there is no fever or chills no headache or dizziness no chest pain at this time, no shortness of breath no cough no nausea or vomiting no abdominal pain no diar jamal and no urinary symptoms, there is no weakness or numbness in any of the extremities no change in vision speech or gait. Past Medical History Past Medical History: Asthma, Coronary Artery Disease (CAD), Chest Pain / Angina, Diabetes Mellitus, GERD/Reflux, Hearing Disorder / Deafness, Hyperlipidemia, Hypertension Additional Past Medical History / Comment(s): IDDM. Hx chronic back pain, chronic pain syndrome. Neuropathy bilateral feet, [place]/uses hearing aids bilaterally. History of Any Multi-Drug Resistant Organisms: None Reported Past Surgical History: Heart Catheterization With Stent Additional Past Surgical History / Comment(s): trigger 2nd digit left hand 10-12-20, trigger finger release rt hand,Cervical fusion, back lami/injections, neck sx, carpal tunnel surgery, colonoscopy/benign polypectomy. 3 stents placed 05/2021 and 04/2023. total of 5 heart caths. Past Anesthesia/Blood Transfusion Reactions: No Reported Reaction Additional Past Anesthesia/Blood Transfusion Reaction / Comment(s): no problems with prior blood transfusion. Date of Last Stent Placement:: 2023 x3 stent total Past Psychological History: No Psychological Hx Reported Additional Psychological History / Comment(s): . Smoking Status: Never smoker Past Alcohol Use History: None Reported Past Drug Use History: None Reported - Past Family History Father Family Medical History: Myocardial Infarction (CT) Additional Family Medical History / Comment(s): Passed at age 72. Mother Family Medical History: Myocardial Infarction (CT) Additional Family Medical History / Comment(s): Passed at age 77. Brother(s) Family Medical History: Myocardial Infarction (CT) Additional Family Medical History / Comment(s): 3 brothers passed from [place] in 50's. Sister(s) Family Medical History: Myocardial Infarction (CT) Additional Family Medical History / Comment(s): sister 50s Medications and Allergies Home Medications Medication Instructions Recorded Confirmed Type glipiZIDE [Glucotrol] 10 mg PO DAILY 01/17/14 08/02/23 History amLODIPine BESYLATE [Norvasc] 10 mg PO DAILY 04/19/14 08/02/23 History metFORMIN HCL [Glucophage] 1,000 mg PO BID #0 10/18/17 08/02/23 Rx Insulin Glargine [Lantus Vial] 70 - 75 unit SQ HS 07/20/19 08/02/23 History INSULIN LISPRO (humaLOG) [humaLOG] 20 - 25 units SQ AC-TID 01/09/20 08/02/23 History Tamsulosin HCl [Flomax] 0.4 mg PO HS 01/09/20 08/02/23 History Atorvastatin [Lipitor] 40 mg PO DAILY 09/19/22 08/02/23 History Isosorbide Mononitrate ER [Imdur] 60 mg PO DAILY 09/19/22 08/02/23 History Omeprazole [PriLOSEC] 20 mg PO BID 11/21/22 08/02/23 History Valsartan [Diovan] 40 mg PO DAILY 04/07/23 08/02/23 History Clopidogrel [Plavix] 75 mg PO DAILY #90 tab 04/10/23 08/02/23 Rx Metoprolol Tartrate [Lopressor] 25 mg PO BID #180 tab 04/10/23 08/02/23 Rx Nitroglycerin Sl Tabs [Nitrostat] 0.4 mg SL Q5M PRN 06/18/23 08/02/23 History Pregabalin [Lyrica] 150 mg PO BID 06/18/23 08/02/23 History Allergies Allergy/AdvReac Type Severity Reaction Status Date / Time No Known Allergies Allergy Verified 08/02/23 17:11 Physical Exam Vitals: Vital Signs Temp Pulse Pulse Resp BP Pulse Ox 08/02/23 19:20 60 16 114/71 95 08/02/23 17:22 76 20 111/76 97 08/02/23 14:17 77 77 16 113/75 95 08/02/23 13:57 97.8 F 75 18 115/54 100 Intake and Output 08/02/23 08/02/23 08/02/23 06:59 14:59 22:59 Other: Weight 92.986 kg 92.986 kg In general patient is alert and oriented x 3 in no distress HEENT head normocephalic and atraumatic Neck is supple no JVD no goiter no lymphadenopathy no carotid bruit Chest examination is clear to auscultation no crackles no wheezing Cardiac exam reveals regular heart sounds S1 and S2 no gallops no murmurs Abdomen is soft nontender no organomegaly with normal bowel sounds Extremity exam reveals no edema no cyanosis or clubbing Neurological examination reveals no gross focal deficits Results CBC & Chem 7: 08/02/23 14:22 08/02/23 14:22 Labs: Abnormal Lab Results - Last 24 Hours (Table) 08/02/23 08/02/23 08/02/23 Range/Units 14:22 14:22 14:22 RBC 4.25 L (4.30-5.90) m/uL Hgb 11.3 L (13.0-17.5) gm/dL Hct 34.7 L (39.0-53.0) % RDW 18.6 H (11.5-15.5) % D-Dimer 1.16 H (<0.60) mg/L FEU BUN 36 H (9-20) mg/dL Creatinine 1.57 H (0.66-1.25) mg/dL Glucose 176 H (74-99) mg/dL POC Glucose (mg/dL) (70-110) mg/dL 08/02/23 Range/Units 20:39 RBC (4.30-5.90) m/uL Hgb (13.0-17.5) gm/dL Hct (39.0-53.0) % RDW (11.5-15.5) % D-Dimer (<0.60) mg/L FEU BUN (9-20) mg/dL Creatinine (0.66-1.25) mg/dL Glucose (74-99) mg/dL POC Glucose (mg/dL) 342 H (70-110) mg/dL Thrombosis Risk Factor Assmnt - Choose All That Apply Any of the Below Risk Factors Present?: Yes Each Factor Represents 1 point: Obesity (BMI >25) Other Risk Factors: Yes Each Risk Factor Represents 3 Points: Age 75 years or older Other congenital or acquired thrombophilia - If yes, enter type in comment: No Thrombosis Risk Factor Assessment Total Risk Factor Score: 4 Thrombosis Risk Factor Assessment Level: Moderate Risk Assessment and Plan Plan: Acute chest pain, serial EKG and cardiac enzymes ordered cardiology consultation requested Underlying history of coronary artery disease with previous history of cardiac catheterization with angioplasty and stent placement Elevated D-dimer, with negative CT angiogram of the chest for pulmonary embolism Underlying history of hypertension Underlying history of hyperlipidemia Underlying history of [id number]-rogveevpr diabetes mellitus Underlying history of degenerative disc disease with chronic back pain Underlying history of benign prostatic hypertrophy Underlying history of gastroesophageal reflux disease At this time patient is admitted to telemetry floor Home medications reviewed and reordered Serial EKG and cardiac enzymes ordered Cardiology consultation requested Will follow closely
[2023-08-03 09:53] LABS: Chol/HDL Ratio 2.43 Ratio; LDL Cholesterol,Calculated 39.6 mg/dL (0.0-131.0)
[2023-08-03] MEDS: METOPROLOL TARTRATE 12.5 MG TAB PO SCH (10:10)
[2023-08-03] MEDS: ATORVASTATIN 40 MG TAB PO SCH (10:11)
[2023-08-03] MEDS: amLODIPine 10 MG TAB PO SCH (10:11)
[2023-08-03] MEDS: CLOPIDOGREL 75 MG TAB PO SCH (10:11)
[2023-08-03] MEDS: EZETIMIBE 10 MG TAB PO SCH (10:14)
[2023-08-03] MEDS: ISOSORBIDE MONONITRATE ER 60 MG TAB.ER.24H PO SCH (10:32)
[2023-08-03] MEDS: glipiZIDE 10 MG TAB PO SCH (10:32)
[2023-08-03] MEDS: VALSARTAN 40 MG TAB PO SCH (10:32)
[2023-08-03 12:30] LABS: Glucose,Whole Blood 134 mg/dL (70-110)
--- NOTE | 2023-08-03 13:33 | P.CRDCN ---
History of Present Illness Consult date: 08/03/23 Consult reason: chest pain History of present illness: The patient is a 78-year-old male who follows in the office with Dr. Aranda. The patient had an admission back in July for increased shortness of breath, where he was diagnosed with acid reflux. The patient presented to the emergency room this time with epigastric discomfort. He states his breathing has slightly improved, but he does have weakness and fatigue. DIAGNOSTICS: EKG shows sinus mechanism without acute ST or T wave abnormalities Chest x-ray shows no acute cardiopulmonary process CT scan of the chest shows no acute pulmonary embolism Lab data: WBC 9.6, hemoglobin 11.3, hematocrit 34.7, platelet 257, D-dimer 1.16, sodium 138, potassium 4.6, BUN 36, creatinine 1.57, hemoglobin A1c 8.2, magnesium 1.7, AST 21, ALT 22, BNP 403, troponins negative x 3 REVIEW OF SYSTEMS: No fever or chills. No cough or expectoration. No diaphoresis. Patient denies headache, dizziness, blurred vision, double vision. Patient denies any stomach discomfort. No nausea, vomiting. No hematochezia. No hematemesis. Denies any black stools or blood in his stools. Denies dysuria or hematuria. No current chest discomfort. PHYSICAL EXAMINATION: This is a 78-year-old male in no apparent distress at the time of my examination. HEENT: Head is atraumatic, normocephalic. Pupils are equal, round. Sclerae anicteric. Conjunctivae are clear. Mucous membranes of the mouth are moist. Neck is supple. There is no jugular venous distention. No carotid bruit is heard. CHEST EXAMINATION: Lungs are clear to auscultation. No chest wall tenderness is noted on palpation or with deep breathing. HEART EXAMINATION: Heart regular rate and rhythm. S1, S2 heard. No murmurs, gallops or rub. ABDOMEN: Soft, nontender. Bowel sounds are heard. No organomegaly noted. EXTREMITIES: 2+ peripheral pulses with no evidence of peripheral edema and no calf tenderness noted. NEUROLOGIC EXAMINATION: Patient is awake, alert and oriented x3. FINAL ASSESSMENT AND PLAN: Epigastric chest discomfort Shortness of breath with exertion History of multivessel coronary artery disease History hypertension History of dyslipidemia Diabetes mellitus, hemoglobin A1c 7.8 in July PLAN: Add Zetia with previous LDL at 90 Reduce metoprolol to 12.5 mg twice daily for chronotropic incompetence Resume all other home cardiac medications If patient has right any recurrence of chest discomfort, consider stress testing to assess for ischemia I am dictating on behalf of Dr Domenico Donis's history/physical and assessment/plan. Past Medical History Past Medical History: Asthma, Coronary Artery Disease (CAD), Chest Pain / Angina, Diabetes Mellitus, GERD/Reflux, Hearing Disorder / Deafness, Hyperlipidemia, Hypertension Additional Past Medical History / Comment(s): IDDM. Hx chronic back pain, chronic pain syndrome. Neuropathy bilateral feet, [place]/uses hearing aids bilaterally. History of Any Multi-Drug Resistant Organisms: None Reported Past Surgical History: Heart Catheterization With Stent Additional Past Surgical History / Comment(s): trigger 2nd digit left hand 12-13-19, trigger finger release rt hand,Cervical fusion, back lami/injections, neck sx, carpal tunnel surgery, colonoscopy/benign polypectomy. 3 stents placed 05/2021 and 04/2023. total of 5 heart caths. Past Anesthesia/Blood Transfusion Reactions: No Reported Reaction Additional Past Anesthesia/Blood Transfusion Reaction / Comment(s): no problems with prior blood transfusion. Date of Last Stent Placement:: 2023 x3 stent total Past Psychological History: No Psychological Hx Reported Additional Psychological History / Comment(s): . Smoking Status: Never smoker Past Alcohol Use History: None Reported Past Drug Use History: None Reported - Past Family History Father Family Medical History: Myocardial Infarction ([place]) Additional Family Medical History / Comment(s): Passed at age 72. Mother Family Medical History: Myocardial Infarction ([place]) Additional Family Medical History / Comment(s): Passed at age 77. Brother(s) Family Medical History: Myocardial Infarction ([place]) Additional Family Medical History / Comment(s): 3 brothers passed from [place] in 50's. Sister(s) Family Medical History: Myocardial Infarction ([place]) Additional Family Medical History / Comment(s): sister 50s Medications and Allergies Home Medications Medication Instructions Recorded Confirmed Type glipiZIDE [Glucotrol] 10 mg PO DAILY 01/17/14 08/02/23 History amLODIPine BESYLATE [Norvasc] 10 mg PO DAILY 04/19/14 08/02/23 History metFORMIN HCL [Glucophage] 1,000 mg PO BID #0 08/18/18 06/01/24 Rx Insulin Glargine [Lantus Vial] 70 - 75 unit SQ HS 07/20/19 08/02/23 History INSULIN LISPRO (humaLOG) [humaLOG] 20 - 25 units SQ AC-TID 01/09/20 08/02/23 History Tamsulosin HCl [Flomax] 0.4 mg PO HS 01/09/20 08/02/23 History Atorvastatin [Lipitor] 40 mg PO DAILY 09/19/22 08/02/23 History Isosorbide Mononitrate ER [Imdur] 60 mg PO DAILY 09/19/22 08/02/23 History Omeprazole [PriLOSEC] 20 mg PO BID 11/21/22 08/02/23 History Valsartan [Diovan] 40 mg PO DAILY 04/07/23 08/02/23 History Clopidogrel [Plavix] 75 mg PO DAILY #90 tab 04/10/23 08/02/23 Rx Metoprolol Tartrate [Lopressor] 25 mg PO BID #180 tab 04/10/23 08/02/23 Rx Nitroglycerin Sl Tabs [Nitrostat] 0.4 mg SL Q5M PRN 06/18/23 08/02/23 History Pregabalin [Lyrica] 150 mg PO BID 06/18/23 08/02/23 History Allergies Allergy/AdvReac Type Severity Reaction Status Date / Time No Known Allergies Allergy Verified 08/02/23 17:11 Physical Exam Vitals: Vital Signs Temp Pulse Pulse Pulse Resp BP BP 08/03/23 07:45 97.6 F 59 L 16 138/69 08/03/23 02:00 97.5 F L 55 L 16 148/65 08/02/23 20:00 97.4 F L 61 18 139/68 08/02/23 19:20 60 16 114/71 08/02/23 17:22 76 20 111/76 08/02/23 14:17 77 77 16 113/75 08/02/23 13:57 97.8 F 75 18 115/54 Pulse Ox 08/03/23 07:45 96 08/03/23 02:00 94 L 08/02/23 20:00 94 L 08/02/23 19:20 95 06/01/24 17:22 97 08/02/23 14:17 95 08/02/23 13:57 100 Intake and Output 08/02/23 08/03/23 08/03/23 22:59 06:59 14:59 Other: # Voids 1 2 Weight 92.986 kg Results 08/02/23 14:22 08/02/23 14:22 Cardiac Enzymes 08/02/23 08/02/23 08/02/23 Range/Units 14:22 14:22 18:31 AST 21 (17-59) U/L Troponin I <0.012 <0.012 (0.000-0.034) ng/mL 08/02/23 Range/Units 21:21 AST (17-59) U/L Troponin I <0.012 (0.000-0.034) ng/mL Coagulation 08/02/23 Range/Units 14:22 PT 10.5 (10.0-12.5) sec APTT 22.6 (22.0-30.0) sec CBC 08/02/23 Range/Units 14:22 WBC 9.6 (3.8-10.6) k/uL RBC 4.25 L (4.30-5.90) m/uL Hgb 11.3 L (13.0-17.5) gm/dL Hct 34.7 L (39.0-53.0) % Plt Count 257 (150-450) k/uL Comprehensive Metabolic Panel 08/02/23 Range/Units 14:22 Sodium 138 (137-145) mmol/L Potassium 4.6 (3.5-5.1) mmol/L Chloride 107 (98-107) mmol/L Carbon Dioxide 22 (22-30) mmol/L BUN 36 H (9-20) mg/dL Creatinine 1.57 H (0.66-1.25) mg/dL Glucose 176 H (74-99) mg/dL Calcium 8.8 (8.4-10.2) mg/dL AST 21 (17-59) U/L ALT 22 (4-49) U/L Alkaline Phosphatase 72 (38-126) U/L Total Protein 6.5 (6.3-8.2) g/dL Albumin 4.1 (3.5-5.0) g/dL Current Medications Generic Name Dose Route Start Last Admin Trade Name Freq PRN Reason Stop Dose Admin Amlodipine Besylate 10 mg 08/03/23 09:00 Amlodipine 10 Mg Tab PO DAILY [facility] Atorvastatin Calcium 40 mg 08/03/23 09:00 Atorvastatin 40 Mg Tab PO DAILY [facility] Clopidogrel Bisulfate 75 mg 08/03/23 09:00 Clopidogrel 75 Mg Tab PO DAILY [facility] Dextrose/Water 25 ml 08/02/23 21:35 Dextrose 50% Syringe 50 Ml IVP PER PROTOCOL PRN Hypoglycemia Protocol Dextrose/Water 50 ml 08/02/23 21:35 Dextrose 50% Syringe 50 Ml IVP PER PROTOCOL PRN Hypoglycemia Protocol Enoxaparin Sodium 40 mg 08/02/23 21:00 08/02/23 21:24 Enoxaparin 40 Mg/0.4 Ml Syringe SQ 40 mg HS [facility] Administration Glipizide 10 mg 08/03/23 07:30 Glipizide 10 Mg Tab PO AC-BRKFST [facility] Insulin Aspart 20 unit 08/03/23 07:30 08/03/23 06:13 Insulin Aspart (Novolog) 100 Unit/Ml Vial SQ Not Given AC-TID [facility] Insulin Aspart 0 unit 08/02/23 21:37 08/03/23 06:14 Insulin Aspart (Novolog) 100 Unit/Ml Vial SQ Not Given ACHS [facility] Protocol Insulin Detemir 70 unit 08/02/23 21:45 08/02/23 22:10 Insulin Detemir (Levemir) 100 Unit/Ml Syr SQ 70 unit HS [facility] Administration Isosorbide Mononitrate 60 mg 08/03/23 09:00 Isosorbide Mononitrate Er 60 Mg Tab.Er.24h PO DAILY [facility] Metoprolol Tartrate 12.5 mg 08/03/23 09:00 Metoprolol Tartrate 25 Mg Tab PO BID [facility] Nitroglycerin 0.4 mg 08/02/23 17:55 Nitroglycerin Sl Tabs 0.4 Mg Tab SUBLINGUAL Q5M PRN Chest Pain Nitroglycerin 1 inch 08/02/23 21:00 08/03/23 03:24 Nitroglycerin Oint 1 Inch/Gm Packet TOPICAL Not Given Q6H [facility] Pantoprazole Sodium 40 mg 08/02/23 21:00 08/03/23 06:35 Pantoprazole 40 Mg Tablet PO 40 mg AC-BID [facility] Administration Pregabalin 150 mg 08/02/23 21:00 08/02/23 21:25 Pregabalin 75 Mg Cap PO 150 mg BID [place] Administration Tamsulosin HCl 0.4 mg 08/02/23 21:00 08/02/23 21:25 Tamsulosin 0.4 Mg Cap.Er.24h PO 0.4 mg HS [place] Administration Valsartan 40 mg 08/03/23 09:00 Valsartan 40 Mg Tab PO DAILY [place] Intake and Output 08/02/23 08/03/23 08/03/23 22:59 06:59 14:59 Other: # Voids 1 2 Weight 92.986 kg 08/02/23 14:22 08/02/23 14:22
[2023-08-03 17:03] LABS: Glucose,Whole Blood 97 mg/dL (70-110)
[2023-08-03 20:43] LABS: Glucose,Whole Blood 216 mg/dL (70-110)
[2023-08-04 06:07] LABS: Glucose,Whole Blood 95 mg/dL (70-110)
[2023-08-04 08:33] VITALS: BP 121/62; PULSE 65; RESP 16; TEMP 98.1
[2023-08-04 08:42] LABS: Basophils # (A) 0.06 X 10*3/uL (0.00-0.10); Basophils % (A) 0.8 %; Eosinophils # (A) 0.37 X 10*3/uL (0.04-0.35); Eosinophils % (A) 4.9 %; HGB 11.7 g/dL (13.0-17.0); Lymphocytes # (A) 1.28 X 10*3/uL (0.90-5.00); Lymphocytes % (A) 16.9 %; MCH 26.4 pg (27.0-32.0); MCHC 31.6 g/dL (32.0-37.0); MCV 83.3 FL (80.0-97.0); Mean Platelet Volume 10.5 FL (9.5-12.2); Monocytes # (A) 0.63 X 10*3/uL (0.20-1.00); Monocytes % (A) 8.3 %; NRBC Per 100 WBC 0 X 10*3/uL (0.00-0.01); Neutrophils # (A) 5.19 X 10*3/uL (1.80-7.70); Neutrophils % (A) 68.6 %; Platelet Count 238 X 10*3/uL (140-440); RBC 4.44 X 10*6/uL (4.40-5.60); RDW 19.9 % (11.5-14.5); WBC 7.57 X 10*3/uL (4.50-10.00)
[2023-08-04 09:02] LABS: ALT 22 U/L (10-49); AST 17 U/L (14-35); Albumin 4.1 g/dL (3.8-4.9); Albumin/Globulin Ratio 1.86 Ratio (1.60-3.17); Alkaline Phosphatase 74 U/L (41-126); BUN/Creat Ratio 17.58 Ratio (12.00-20.00); Blood Urea Nitrogen 21.1 mg/dL (9.0-27.0); Calcium 9.1 mg/dL (8.7-10.3); Carbon Dioxide 26.5 mmol/L (21.6-31.8); Chloride 106 mmol/L (96-109); Globulin 2.2 g/dL (1.6-3.3); Glucose 91 mg/dL (70-110); Potassium 4.9 mmol/L (3.5-5.5); Sodium 143 mmol/L (135-145); Total Bilirubin 0.2 mg/dL (0.3-1.2); Total Protein 6.3 g/dL (6.2-8.2)
--- NOTE | 2023-08-04 09:52 | P.PN ---
Subjective Progress Note Date: 08/03/23 Primitivo Benjamin, Is a 78-year-old male who presented to [facility] emergency room with a chief complaint of chest pain, patient describes a sharp pain in the lower substernal area that lasted about 10 minutes, he stated that he took 2 sublingual nitroglycerin and the pain was relieved, he did not have any further episodes of chest pain. He was evaluated in the emergency room vital examination on presentation revealed a temperature of 97.8 pulse 75 respiration 18 blood pressure 115/54 pulse ox 100% on room air Laboratory data revealed a white blood count of 9.6 hemoglobin 11.3 platelet count 257 D-dimer 1.16 BUN 36 creatinine 1.57 troponin level 0.012 Testing in the emergency room revealed EKG done in the emergency room revealed sinus rhythm no acute ischemic changes, chest x-ray revealed no acute pulmonary process, CT angiogram of the chest revealed no acute pulmonary embolism, with minimal volume overload. Patient was admitted to medical floor for further evaluation and treatment, cardiology consultation was requested Past medical history is significant for history of hypertension, history of insulin-dependent diabetes mellitus, history of hyperlipidemia, history of coronary artery disease, with previous history of cardiac catheterization with a ngioplasty and stent placement, last stent placement was March 2023, history of benign prostatic hypertrophy, history of gastroesophageal reflux disease On review of systems patient is alert and oriented x 3 in no apparent distress, there is no fever or chills no headache or dizziness no chest pain at this time, no shortness of breath no cough no nausea or vomiting no abdominal pain no diarrhea and no urinary symptoms, there is no weakness or numbness in any of the extremities no change in vision speech or gait. On 08/03/2023 patient was seen and examined on the medical floor he is alert and oriented x 3 in no apparent distress, he denies any new episodes of chest pain, there is no fever or chills no headache or dizziness no chest pain no shortness of breath no cough no nausea or vomiting no abdominal pain no diarrhea no urinary symptoms, vital examination reveals a temperature of 97.6 pulse 59 respiration 16 blood pressure 138/69 pulse ox 96% on room air Objective - Vital Signs Vital signs: Vital Signs Temp 97.6 F 08/03/23 07:45 Pulse 59 L 08/03/23 07:45 Resp 16 08/03/23 07:45 BP 138/69 08/03/23 07:45 Pulse Ox 96 08/03/23 07:45 FiO2 Intake & Output 08/02/23 08/03/23 08/03/23 18:59 06:59 18:59 Weight 92.986 kg 92.986 kg Other: # Voids 2 - Exam In general patient is alert and oriented x 3 in no distress HEENT head normocephalic and atraumatic Neck is supple no JVD no goiter no lymphadenopathy no carotid bruit Chest examination is clear to auscultation no crackles no wheezing Cardiac exam reveals regular heart sounds S1 and S2 no gallops no murmurs Abdomen is soft nontender no organomegaly with normal bowel sounds Extremity exam reveals no edema no cyanosis or clubbing Neurological examination reveals no gross focal deficits - Labs CBC & Chem 7: 08/04/23 04:27 08/04/23 04:27 Labs: Abnormal Lab Results - Last 24 Hours (Table) 08/02/23 08/02/23 08/02/23 Range/Units 14:22 14:22 14:22 RBC 4.25 L (4.30-5.90) m/uL Hgb 11.3 L (13.0-17.5) gm/dL Hct 34.7 L (39.0-53.0) % RDW 18.6 H (11.5-15.5) % D-Dimer 1.16 H (<0.60) mg/L FEU BUN 36 H (9-20) mg/dL Creatinine 1.57 H (0.66-1.25) mg/dL Glucose 176 H (74-99) mg/dL POC Glucose (mg/dL) (70-110) mg/dL Hemoglobin A1c (<=6.0) % 08/02/23 08/02/23 Range/Units 14:22 20:39 RBC (4.30-5.90) m/uL Hgb (13.0-17.5) gm/dL Hct (39.0-53.0) % RDW (11.5-15.5) % D-Dimer (<0.60) mg/L FEU BUN (9-20) mg/dL Creatinine (0.66-1.25) mg/dL Glucose (74-99) mg/dL POC Glucose (mg/dL) 342 H (70-110) mg/dL Hemoglobin A1c 8.2 H (<=6.0) % Assessment and Plan Plan: Acute chest pain, serial EKG and cardiac enzymes ordered cardiology consultation requested Underlying history of coronary artery disease with previous history of cardiac catheterization with angioplasty and stent placement Elevated D-dimer, with negative CT angiogram of the chest for pulmonary embolism Underlying history of hypertension Underlying history of hyperlipidemia Underlying history of lal-[id number] diabetes mellitus Underlying history of degenerative disc disease with chronic back pain Underlying history of benign prostatic hypertrophy Underlying history of gastroesophageal reflux disease At this time patient is admitted to telemetry floor Home medications reviewed and reordered Serial EKG and cardiac enzymes ordered Cardiology consultation requested Will follow closely
[2023-08-04] MEDS: CHOLESTYRAMINE (WITH SUGAR) 4 GM PACKET PO SCH (10:23)
--- NOTE | 2023-08-04 10:43 | P.PN ---
Subjective Progress Note Date: 08/04/23 Primitivo Benjamin, Is a 78-year-old male who presented to [facility] emergency room with a chief complaint of chest pain, patient describes a sharp pain in the lower substernal area that lasted about 10 minutes, he stated that he took 2 sublingual nitroglycerin and the pain was relieved, he did not have any further episodes of chest pain. He was evaluated in the emergency room vital examination on presentation revealed a temperature of 97.8 pulse 75 respiration 18 blood pressure 115/54 pulse ox 100% on room air Laboratory data revealed a white blood count of 9.6 hemoglobin 11.3 platelet count 257 D-dimer 1.16 BUN 36 creatinine 1.57 troponin level 0.012 Testing in the emergency room revealed EKG done in the emergency room revealed sinus rhythm no acute ischemic changes, chest x-ray revealed no acute pulmonary process, CT angiogram of the chest revealed no acute pulmonary embolism, with minimal volume overload. Patient was admitted to medical floor for further evaluation and treatment, cardiology consultation was requested Past medical history is significant for history of hypertension, history of insulin-dependent diabetes mellitus, history of hyperlipidemia, history of coronary artery disease, with previous history of cardiac catheterization with a ngioplasty and stent placement, last stent placement was March 2023, history of benign prostatic hypertrophy, history of gastroesophageal reflux disease On review of systems patient is alert and oriented x 3 in no apparent distress, there is no fever or chills no headache or dizziness no chest pain at this time, no shortness of breath no cough no nausea or vomiting no abdominal pain no diarrhea and no urinary symptoms, there is no weakness or numbness in any of the extremities no change in vision speech or gait. On 08/03/2023 patient was seen and examined on the medical floor he is alert and oriented x 3 in no apparent distress, he denies any new episodes of chest pain, there is no fever or chills no headache or dizziness no chest pain no shortness of breath no cough no nausea or vomiting no abdominal pain no diarrhea no urinary symptoms, vital examination reveals a temperature of 97.6 pulse 59 respiration 16 blood pressure 138/69 pulse ox 96% on room air On 08/04/2023 patient was seen and examined on the medical floor, he is alert and oriented x 3 in no apparent distress, he is complaining of diarrhea this morning, he stated that he had 3 episodes of liquid stools, otherwise he denies any complaints, there are no new episodes of chest pain, no headache or dizziness no shortness of breath no cough no nausea or vomiting no abdominal pain no blood in the stools and no urinary symptoms. At this time will check stool sample for C. difficile, we are still awaiting cardiology input for any further evaluation regarding chest pain. Objective - Vital Signs Vital signs: Vital Signs Temp 98.1 F 08/04/23 07:00 Pulse 65 08/04/23 07:00 Resp 16 08/04/23 07:00 BP 121/62 08/04/23 07:00 Pulse Ox 95 08/04/23 07:00 FiO2 Intake & Output 08/03/23 08/04/23 08/04/23 18:59 06:59 18:59 Intake Total 236 118 Balance 236 118 Intake: Oral 236 118 Other: Voiding Method Toilet Toilet # Voids 1 1 - Exam In general patient is alert and oriented x 3 in no distress HEENT head normocephalic and atraumatic Neck is supple no JVD no goiter no lymphadenopathy no carotid bruit Chest examination is clear to auscultation no crackles no wheezing Cardiac exam reveals regular heart sounds S1 and S2 no gallops no murmurs Abdomen is soft nontender no organomegaly with normal bowel sounds Extremity exam reveals no edema no cyanosis or clubbing Neurological examination reveals no gross focal deficits - Labs CBC & Chem 7: 08/04/23 04:27 08/04/23 04:27 Labs: Abnormal Lab Results - Last 24 Hours (Table) 08/03/23 08/03/23 08/04/23 Range/Units 12:18 20:42 04:27 Hgb 11.7 L (13.0-17.0) g/dL Hct 37.0 L (39.6-50.0) % MCH 26.4 L (27.0-32.0) pg MCHC 31.6 L (32.0-37.0) g/dL RDW 19.9 H (11.5-14.5) % Eosinophils # 0.37 H (0.04-0.35) X 10*3/uL POC Glucose (mg/dL) 134 H 216 H (70-110) mg/dL Total Bilirubin (0.3-1.2) mg/dL 08/04/23 Range/Units 04:27 Hgb (13.0-17.0) g/dL Hct (39.6-50.0) % MCH (27.0-32.0) pg MCHC (32.0-37.0) g/dL RDW (11.5-14.5) % Eosinophils # (0.04-0.35) X 10*3/uL POC Glucose (mg/dL) (70-110) mg/dL Total Bilirubin 0.2 L (0.3-1.2) mg/dL Assessment and Plan Plan: Acute chest pain, serial EKG and cardiac enzymes ordered cardiology consultation requested Underlying history of coronary artery disease with previous history of cardiac catheterization with angioplasty and stent placement Elevated D-dimer, with negative CT angiogram of the chest for pulmonary embolism Underlying history of hypertension Underlying history of hyperlipidemia Underlying history of sao-nnziupx-ibbajtatt diabetes mellitus Underlying history of degenerative disc disease with chronic back pain Underlying history of benign prostatic hypertrophy Underlying history of gastroesophageal reflux disease At this time patient is admitted to telemetry floor Home medications reviewed and reordered Serial EKG and cardiac enzymes ordered Cardiology consultation requested Will follow closely
--- NOTE | 2023-08-04 11:03 | P.PN ---
Subjective HISTORY OF PRESENT ILLNESS: 08/03/2023 The patient is a 78-year-old male who follows in the office with Dr. Aranda. The patient had an admission back in July for increased shortness of breath, where he was diagnosed with acid reflux. The patient presented to the emergency room this time with epigastric discomfort. He states his breathing has slightly improved, but he does have weakness and fatigue. DIAGNOSTICS: EKG shows sinus mechanism without acute ST or T wave abnormalities Chest x-ray shows no acute cardiopulmonary process CT scan of the chest shows no acute pulmonary embolism Lab data: WBC 9.6, hemoglobin 11.3, hematocrit 34.7, platelet 257, D-dimer 1.16, sodium 138, potassium 4.6, BUN 36, creatinine 1.57, hemoglobin A1c 8.2, magn esium 1.7, AST 21, ALT 22, BNP 403, troponins negative x 3 08/04/2023 Patient examined this morning at the bedside. Patient has had no further episodes of chest pain or pressure. He denies any shortness of breath. Vital signs are stable. Patient's metoprolol was decreased to 12.5 mg twice a day y secondary to chronotropic incompetence. Patient's vital signs are stable. PHYSICAL EXAM: VITAL SIGNS: Reviewed. GENERAL: Well-developed in no acute distress. NECK: Supple. No JVD or thyromegaly LUNGS: Respirations even and unlabored. Lungs essentially clear to auscultation bilaterally. HEART: Regular rate and rhythm. S1 and S2 heard. EXTREMITIES: Normal range of motion. No clubbing or cyanosis. Peripheral pulses intact. No lower extremity edema ASSESSMENT: Epigastric chest pain, acute coronary syndrome ruled out History of multivessel coronary artery disease History of hypertension History of hyperlipidemia Diabetes History of chronotropic incompetence PLAN: Continue current cardiac medications No plans for inpatient stress testing at this time as patient has had no further episodes of chest pain or pressure Patient may be discharged home today from a cardiac standpoint He is to follow-up postdischarge in the office with Dr. Aranda We will sign off. Please reconsult if needed. Nurse practitioner note has been reviewed by physician. Signing provider agrees with the documented findings, assessment, and plan of care documented by [employer] as a scribe. Objective - Vital Signs Vital signs: Vital Signs Temp 98.1 F 08/04/23 07:00 Pulse 65 08/04/23 07:00 Resp 16 08/04/23 07:00 BP 121/62 08/04/23 07:00 Pulse Ox 95 08/04/23 07:00 FiO2 Intake & Output 08/03/23 08/04/23 08/04/23 18:59 06:59 18:59 Intake Total 236 118 Balance 236 118 Intake: Oral 236 118 Other: Voiding Method Toilet Toilet # Voids 1 1 - Labs CBC & Chem 7: 08/04/23 04:27 08/04/23 04:27 Labs: Abnormal Lab Results - Last 24 Hours (Table) 08/03/23 08/03/23 08/04/23 Range/Units 12:18 20:42 04:27 Hgb 11.7 L (13.0-17.0) g/dL Hct 37.0 L (39.6-50.0) % MCH 26.4 L (27.0-32.0) pg MCHC 31.6 L (32.0-37.0) g/dL RDW 19.9 H (11.5-14.5) % Eosinophils # 0.37 H (0.04-0.35) X 10*3/uL POC Glucose (mg/dL) 134 H 216 H (70-110) mg/dL Total Bilirubin (0.3-1.2) mg/dL 08/04/23 Range/Units 04:27 Hgb (13.0-17.0) g/dL Hct (39.6-50.0) % MCH (27.0-32.0) pg MCHC (32.0-37.0) g/dL RDW (11.5-14.5) % Eosinophils # (0.04-0.35) X 10*3/uL POC Glucose (mg/dL) (70-110) mg/dL Total Bilirubin 0.2 L (0.3-1.2) mg/dL
[2023-08-04 12:04] LABS: Glucose,Whole Blood 149 mg/dL (70-110)
--- NOTE | 2023-08-04 16:12 | P.DS ---
Providers Date of admission: 08/02/23 17:57 Expected date of discharge: 08/04/23 Attending physician: Pete Fountain Primary care physician: Pete Fountain [facility] Course: Diagnosis on discharge: Acute chest pain, serial EKG and cardiac enzymes ordered cardiology consultation requested Underlying history of coronary artery disease with previous history of cardiac catheterization with angioplasty and stent placement Elevated D-dimer, with negative CT angiogram of the chest for pulmonary embolism Underlying history of hypertension Underlying history of hyperlipidemia Underlying history of rvd-ecnnuvs-teizljjif diabetes mellitus Underlying history of degenerative disc disease with chronic back pain Underlying history of benign prostatic hypertrophy Underlying history of gastroesophageal reflux disease Hospital course: Primitivo Benjamin, Is a 78-year-old male who presented to [facility] emergency room with a chief complaint of chest pain, patient describes a sharp pain in the lower substernal area that lasted about 10 minutes, he stated that he took 2 sublingual nitroglycerin and the pain was relieved, he did not have any further episodes of chest pain. He was evaluated in the emergency room vital examination on presentation revealed a temperature of 97.8 pulse 75 respiration 18 blood pressure 115/54 pulse ox 100% on room air Laboratory data revealed a white blood count of 9.6 hemoglobin 11.3 platelet count 257 D-dimer 1.16 BUN 36 creatinine 1.57 troponin level 0.012 Testing in the emergency room revealed EKG done in the emergency room revealed sinus rhythm no acute ischemic changes, chest x-ray revealed no acute pulmonary process, CT angiogram of the chest revealed no acute pulmonary embolism, with minimal volume overload. Patient was admitted to medical floor for further evaluation and treatment, cardiology consultation was requested Past medical history is significant for history of hypertension, history of insulin-dependent diabetes mellitus, history of hyperlipidemia, history of coronary artery disease, with previous history of cardiac catheterization with angioplasty and stent placement, last stent placement was March 2023, history of benign prostatic hypertrophy, history of gastroesophageal reflux disease On review of systems patient is alert and oriented x 3 in no apparent distress, there is no fever or chills no headache or dizziness no chest pain at this time, no shortness of breath no cough no nausea or vomiting no abdominal pain no diarrhea and no urinary symptoms, there is no weakness or numbness in any of the extremities no change in vision speech or gait. On 08/03/2023 patient was seen and examined on the medical floor he is alert and oriented x 3 in no apparent distress, he denies any new episodes of chest pain, there is no fever or chills no headache or dizziness no chest pain no shortness of breath no cough no nausea or vomiting no abdominal pain no diarrhea no urinary symptoms, vital examination reveals a temperature of 97.6 pulse 59 respiration 16 blood pressure 138/69 pulse ox 96% on room air On 08/04/2023 patient was seen and examined on the medical floor, he is alert and oriented x 3 in no apparent distress, he is complaining of diarrhea this morning, he stated that he had 3 episodes of liquid stools, otherwise he denies any complaints, there are no new episodes of chest pain, no headache or dizziness no shortness of breath no cough no nausea or vomiting no abdominal pain no blood in the stools and no urinary symptoms. At this time will check stool sample for C. difficile, we are still awaiting cardiology input for any further evaluation regarding chest pain. Stools for C. difficile was negative. No further episodes of diarrhea No inpatient testing was recommended by cardiology. Patient was cleared by cardiology for discharge. He will be followed by Dr. Aranda as outpatient Plan - Discharge Summary New Discharge Prescriptions: New Metoprolol Tartrate [Lopressor] 12.5 mg PO BID 30 Days #60 tab Ezetimibe [Zetia] 10 mg PO DAILY 30 Days #30 tab Continue glipiZIDE [Glucotrol] 10 mg PO DAILY amLODIPine BESYLATE [Norvasc] 10 mg PO DAILY metFORMIN HCL [Glucophage] 1,000 mg PO BID #0 Insulin Glargine [Lantus Vial] 70 - 75 unit SQ HS INSULIN LISPRO (humaLOG) [humaLOG] 20 - 25 units SQ AC-TID Tamsulosin HCl [Flomax] 0.4 mg PO HS Pregabalin [Lyrica] 150 mg PO BID Isosorbide Mononitrate ER [Imdur] 60 mg PO DAILY Atorvastatin [Lipitor] 40 mg PO DAILY Omeprazole [PriLOSEC] 20 mg PO BID Valsartan [Diovan] 40 mg PO DAILY Clopidogrel [Plavix] 75 mg PO DAILY #90 tab Nitroglycerin Sl Tabs [Nitrostat] 0.4 mg SL Q5M PRN PRN Reason: Chest Pain Discontinued Metoprolol Tartrate [Lopressor] 25 mg PO BID #180 tab Discharge Medication List glipiZIDE [Glucotrol] 10 mg PO DAILY 01/17/14 [History] amLODIPine BESYLATE [Norvasc] 10 mg PO DAILY 04/19/14 [History] metFORMIN HCL [Glucophage] 1,000 mg PO BID #0 10/18/17 [Rx] Insulin Glargine [Lantus Vial] 70 - 75 unit SQ HS 07/20/19 [History] INSULIN LISPRO (humaLOG) [humaLOG] 20 - 25 units SQ AC-TID 01/09/20 [History] Tamsulosin HCl [Flomax] 0.4 mg PO HS 01/09/20 [History] Atorvastatin [Lipitor] 40 mg PO DAILY 09/19/22 [History] Isosorbide Mononitrate ER [Imdur] 60 mg PO DAILY 09/19/22 [History] Omeprazole [PriLOSEC] 20 mg PO BID 11/21/22 [History] Valsartan [Diovan] 40 mg PO DAILY 04/07/23 [History] Clopidogrel [Plavix] 75 mg PO DAILY #90 tab 04/10/23 [Rx] Nitroglycerin Sl Tabs [Nitrostat] 0.4 mg SL Q5M PRN 06/18/23 [History] Pregabalin [Lyrica] 150 mg PO BID 06/18/23 [History] Ezetimibe [Zetia] 10 mg PO DAILY 30 Days #30 tab 08/04/23 [Rx] Metoprolol Tartrate [Lopressor] 12.5 mg PO BID 30 Days #60 tab 08/04/23 [Rx] Follow up Appointment(s)/Referral(s): Ree Aranda MD [STAFF PHYSICIAN] - 08/19/23 3:15 pm Pete Fountain MD [Primary Care Provider] - 1-2 days
== END 2023-08-04 16:27 | disposition home or self-care (01) ==
LOC: EC 13:51 → 6NMEDSUR 17:57
PROVIDERS: ADMIT Internal Medicine; ATTEND Internal Medicine
DX: R07.89 Other chest pain (principal); I25.10 Atherosclerotic heart disease of native coronary artery without angina pectoris; R79.89 Other specified abnormal findings of blood chemistry; I10 Essential (primary) hypertension; E78.5 Hyperlipidemia, unspecified; E11.9 Type 2 diabetes mellitus without complications; N40.0 Benign prostatic hyperplasia without lower urinary tract symptoms; K21.9 Gastro-esophageal reflux disease without esophagitis; Z95.5 Presence of coronary angioplasty implant and graft; Z82.49 Family history of ischemic heart disease and other diseases of the circulatory system; Z79.899 Other long term (current) drug therapy; Z79.84 Long term (current) use of oral hypoglycemic drugs; Z79.4 Long term (current) use of insulin; Z79.02 Long term (current) use of antithrombotics/antiplatelets
CPT/HCPCS: 96360; 96361; 96372 ×2; 99285; 36415; 93005 ×2; 85379; 83880; 80061; 80053 ×2; 83735; 84484; 85025 ×2; 85610; 85730; 87324; 83036; 71046; 71275; G0378 ×3; J1650 ×2; Q9967

== ENCOUNTER 2023-10-22 08:04 | Day surgery (SDC) | payer MEDICARE ==
[2023-10-22] MEDS ORDERED: PROPOFOL 10 MG/ML 20 ML VIAL IV ONE (09:59)
[2023-10-22] MEDS ORDERED: LIDOCAINE 1% INJ 10MG/ML (20 ML MDV) ONE (09:59)
[2023-10-22] MEDS ORDERED: LACTATED RINGERS 1,000 ML BAG ONE ×2 (10:00)
--- NOTE | 2023-10-24 15:57 | PCN ---
PROCEDURE NOTE REQUESTING PHYSICIAN: Dr. Fountain. BRIEF HISTORY: The patient is a 78-year-old pleasant white male, here for an upper endoscopy as well as colonoscopy as a part of evaluation of GERD/intermittent dysphagia to solids and change in bowel habits. He also has prior history of colon polyps. PROCEDURES PERFORMED: 1. EGD with biopsy. 2. Colonoscopy. PREOPERATIVE DIAGNOSES: 1. Dysphagia/GERD. 2. Change in bowel habits and history of colon polyps. ANESTHESIA: IV sedation per Anesthesia. DESCRIPTION OF PROCEDURE: After informed consent was obtained from the patient, he was brought in to the endoscopy unit. IV conscious sedation was administered by Anesthesia under continuous monitoring initially. Upper endoscopy was done. The Olympus CF-180 video endoscope was inserted in the mouth and esophagus intubated without any difficulty and was gradually advanced into the stomach and duodenum and carefully examined. Bulb and the second part of the duodenum appeared normal. The scope at this time was withdrawn to the stomach, adequately insufflated with air and upon careful examination, mucosa, antrum, body, and fundus appeared normal. In the cardia of the stomach, there was a 5 mm polyp that was removed that was biopsied. The scope was then withdrawn through the esophagus. The GE junction was located at 40 cm from the incisors. It appeared irregular. Rest of the esophagus appeared normal. The proximal cervical esophagus was carefully examined and appeared normal. The patient tolerated the procedure well. He continued to remain sedated. At this time, a colonoscopy was done. Digital rectal examination was normal. The Olympus CF-190 video colonoscope was then inserted in the rectum, gradually advanced to the cecum. Careful examination was performed as the scope was gradually being withdrawn. Ileocecal valve and appendiceal orifice visualized and appeared normal. The prep was excellent. Cecum, ascending colon, transverse colon, descending colon appeared normal. Scattered sigmoid diverticulosis was seen. Rectum appeared normal. Retroflexion was performed in the rectum. No lesions were noted. The patient tolerated the procedure well. IMPRESSION: 1. Upper endoscopy revealed. a. 5 mm polyp in the gastric cardia status post biopsy. b. No evidence of esophagitis or esophageal stricture. 2. Colonoscopy revealed scattered sigmoid diverticulosis, but no evidence of colorectal neoplasia. RECOMMENDATIONS: Points of this examination were discussed with the patient as well as his family. He was advised to follow up with the biopsy results. Continue with a high-fiber diet and take fiber supplements on a regular basis. MMODL / IJN: [id number] /
== END 2023-10-22 11:45 ==
LOC: ORWHC2ENDO 08:04
PROVIDERS: ATTEND Internal Medicine Gastroenterology
DX: K31.7 Polyp of stomach and duodenum (principal); K57.30 Diverticulosis of large intestine without perforation or abscess without bleeding; K21.9 Gastro-esophageal reflux disease without esophagitis; Z86.010 Personal history of colon polyps; Z98.890 Other specified postprocedural states
CPT/HCPCS: 43239; 45378; 88305; 88342

== ENCOUNTER → 2023-11-04 | Outpatient (CLI) | payer MEDICARE ==
[2023-11-04 17:04] LABS: ALT 17 U/L (10-49); AST 13 U/L (14-35); Albumin 4.5 g/dL (3.8-4.9); Albumin/Globulin Ratio 2.05 Ratio (1.60-3.17); Alkaline Phosphatase 96 U/L (41-126); BUN/Creat Ratio 16.46 Ratio (12.00-20.00); Blood Urea Nitrogen 21.4 mg/dL (9.0-27.0); Calcium 9.7 mg/dL (8.7-10.3); Carbon Dioxide 26.7 mmol/L (21.6-31.8); Chloride 102 mmol/L (96-109); Chol/HDL Ratio 2.46 Ratio; Globulin 2.2 g/dL (1.6-3.3); Glucose 145 mg/dL (70-110); LDL Cholesterol,Calculated 60.6 mg/dL (0.0-131.0); Sodium 141 mmol/L (135-145); Total Bilirubin 0.3 mg/dL (0.3-1.2); Total Protein 6.7 g/dL (6.2-8.2)
== END | disposition home or self-care (01) ==
LOC: LABWHC1 09:14
PROVIDERS: ATTEND Internal Medicine Interventional Cardiology
DX: I10 Essential (primary) hypertension (principal); E78.2 Mixed hyperlipidemia
CPT/HCPCS: 36415; 80053; 80061

== ENCOUNTER 2023-12-02 15:01 | Observation (INO) | payer MEDICARE ==
--- NOTE | 2023-12-02 15:21 | ED ---
Chest Pain HPI - General Source: patient, RN notes reviewed Mode of arrival: wheelchair Limitations: no limitations <Phylicia Weinstein - Last Filed: 12/02/23 15:20> - General Source: patient, RN notes reviewed, old records reviewed Mode of arrival: wheelchair Limitations: no limitations - History of Present Illness MD Complaint: chest pain -: hour(s) Pain Location: substernal, left chest Pain Radiation: LUE, back Severity: moderate Severity scale (1-10): 4 Quality: tightness, aching Consistency: intermittent Improves With: nothing Worsens With: nothing Other Symptoms: palpitations Treatments Prior to Arrival: none <Ever Anguiano - Last Filed: 12/06/23 17:53> - General Chief Complaint: Chest Pain Stated Complaint: Chest Pain,Sob Time Seen by Provider: 12/02/23 15:18 - History of Present Illness Initial Comments: Bright notethis is a 78-year-old male presents emergency department chief complaint of left-sided chest pain that started this morning and is intermittent in nature. States that the pain will mildly radiate into his back. He took 2 nitro approximately 40 minutes before arrival to the emergency department and states that pain is beginning to subside. History of 4 cardiac stents. No blood thinner use currently. (Phylicia Weinstein) This is a 78-year-old male to the ER for evaluation of chest pain today. Patient has left-sided chest pain which is intermittent in nature chest pain just like prior chest pain with history of 4 stents chest pain is persistent here in the emergency department and persistent throughout ER stay (Ever Anguiano) - Related Data Home Medications Medication Instructions Recorded Confirmed glipiZIDE [Glucotrol] 10 mg PO DAILY 01/17/14 12/03/23 amLODIPine BESYLATE [Norvasc] 10 mg PO DAILY 04/19/14 12/03/23 Insulin Glargine [Lantus Vial] 60 unit SQ HS 07/20/19 12/03/23 INSULIN LISPRO (humaLOG) [humaLOG] 20 - 30 units SQ AC-TID 01/09/20 12/03/23 Atorvastatin [Lipitor] 40 mg PO HS 09/19/22 12/03/23 Omeprazole [PriLOSEC] 20 mg PO BID 11/21/22 12/03/23 Valsartan [Diovan] 40 mg PO DAILY 04/07/23 12/03/23 Nitroglycerin Sl Tabs [Nitrostat] 0.4 mg SL Q5M PRN 06/18/23 12/03/23 Pregabalin [Lyrica] 150 mg PO BID 06/18/23 12/03/23 Cyclobenzaprine [Flexeril] 5 mg PO TID PRN 12/03/23 12/03/23 HYDROcodone/APAP 7.5-325MG [[place] 1 tab PO Q8H PRN 12/03/23 12/03/23 7.5-325] Lactulose 10 gm PO DAILY PRN 12/03/23 12/03/23 Meloxicam [Mobic] 15 mg PO DAILY 12/03/23 12/03/23 Previous Rx's Medication Instructions Recorded metFORMIN HCL [Glucophage] 1,000 mg PO BID #0 10/18/17 Ezetimibe [Zetia] 10 mg PO DAILY 30 Days #30 tab 08/04/23 Aspirin 81 mg PO DAILY 30 Days #30 tab 12/03/23 Clopidogrel [Plavix] 75 mg PO DAILY 30 Days #30 tab 12/03/23 Metoprolol Tartrate [Lopressor] 12.5 mg PO BID 30 Days #60 tab 12/03/23 Allergies Allergy/AdvReac Type Severity Reaction Status Date / Time No Known Allergies Allergy Verified 12/03/23 10:21 Review of Systems ROS Other: All systems not noted in ROS Statement are negative. <Phylicia Weinstein - Last Filed: 12/02/23 15:20> ROS Other: All systems not noted in ROS Statement are negative. <Ever Anguiano - Last Filed: 12/06/23 17:53> ROS Statement: Those systems with pertinent positive or pertinent negative responses have been documented in the HPI. EKG Findings - EKG Comments: EKG Findings:: EKG is sinus 71 TN 146 QRS 102 QTc 408 - EKG Results: EKG: interpreted by ERMD <Ever Anguiano - Last Filed: 12/06/23 17:53> Past Medical History Past Medical History: Asthma, Coronary Artery Disease (CAD), Chest Pain / Angina, Diabetes Mellitus, GERD/Reflux, Hearing Disorder / Deafness, Hyperlipidemia, Hypertension Additional Past Medical History / Comment(s): IDDM. Hx chronic back pain, chronic pain syndrome. Neuropathy bilateral feet, KOBU[place]/uses hearing aids bilaterally. History of Any Multi-Drug Resistant Organisms: None Reported Past Surgical History: Heart Catheterization With Stent Additional Past Surgical History / Comment(s): trigger 2nd digit left hand 12-13-19, trigger finger release rt hand,Cervical fusion, back lami/injections, neck sx, carpal tunnel surgery, colonoscopy/benign polypectomy. 3 stents placed 05/2021 and 04/2023. total of 5 heart caths. Past Anesthesia/Blood Transfusion Reactions: No Reported Reaction Additional Past Anesthesia/Blood Transfusion Reaction / Comment(s): no problems with prior blood transfusion. Date of Last Stent Placement:: 2023 x3 stent total Past Psychological History: No Psychological Hx Reported Smoking Status: Never smoker Past Alcohol Use History: None Reported Past Drug Use History: None Reported - Past Family History Father Family Medical History: Myocardial Infarction ([place]) Additional Family Medical History / Comment(s): Passed at age 72. Mother Family Medical History: Myocardial Infarction ([place]) Additional Family Medical History / Comment(s): Passed at age 77. Brother(s) Family Medical History: Myocardial Infarction ([place]) Additional Family Medical History / Comment(s): 3 brothers passed from [place] in 50's. Sister(s) Family Medical History: Myocardial Infarction ([place]) Additional Family Medical History / Comment(s): sister 50s <Phylicia Weinstein - Last Filed: 12/02/23 15:20> General Exam Limitations: no limitations <Phylicia Weinstein - Last Filed: 12/02/23 15:20> General appearance: alert, in no apparent distress Head exam: Present: atraumatic, normocephalic, normal inspection Eye exam: Present: normal appearance, PERRL, EOMI. Absent: scleral icterus, conjunctival injection, periorbital swelling ENT exam: Present: normal exam, mucous membranes moist Neck exam: Present: normal inspection. Absent: tenderness, meningismus, lymphadenopathy Respiratory exam: Present: normal lung sounds bilaterally. Absent: respiratory distress, wheezes, rales, rhonchi, stridor Cardiovascular Exam: Present: regular rate, normal rhythm, normal heart sounds. Absent: systolic murmur, diastolic murmur, rubs, gallop, clicks GI/Abdominal exam: Present: soft, normal bowel sounds. Absent: distended, tenderness, guarding, rebound, rigid Extremities exam: Present: normal inspection, full ROM, normal capillary refill. Absent: tenderness, pedal edema, joint swelling, calf tenderness Back exam: Present: normal inspection Neurological exam: Present: alert, oriented X3, CN II-XII intact Psychiatric exam: Present: normal affect, normal mood Skin exam: Present: warm, dry, intact, normal color. Absent: rash <Ever Anguiano - Last Filed: 12/06/23 17:53> - General Exam Comments Initial Comments: Visual Physical Exam Vital signs reviewed General: Well-appearing, nontoxic, no acute distress. Head: Normocephalic, atraumatic Eyes: PERRLA, EOMI ENT: Airway patent Chest: Nonlabored breathing Skin: No visual rash, normal skin tone Neuro: Alert and oriented 3 Musculoskeletal: No gross abnormalities (Stieler,Phylicia) Course <Ever Anguiano - Last Filed: 12/06/23 17:53> Vital Signs 12/02/23 12/02/23 12/03/23 15:08 23:48 02:00 Temperature 97.8 F Pulse Rate 73 Pulse Rate [ 64 64 Corn Sheller ] Respiratory 16 16 14 Rate Blood Pressure 112/66 Blood Pressure 139/75 141/74 [Right Arm] O2 Sat by Pulse 97 95 92 L Oximetry 12/03/23 12/03/23 05:21 14:34 Temperature 98.0 F Pulse Rate 71 Pulse Rate [ 54 L Corn Sheller ] Respiratory 16 15 Rate Blood Pressure 132/71 Blood Pressure 147/79 [Right Arm] O2 Sat by Pulse 93 L 95 Oximetry - Reevaluation(s) Reevaluation #1: 12/02/23 21:33 Medical records reviewed (Ever Anguiano) Reevaluation #2: 12/02/23 21:33 Patient symptoms unchanged (Ever Anguiano) Reevaluation #3: 12/02/23 21:33 Patient informed of results and questions answered (Ever Anguiano) Reevaluation #4: Was pt. sent in by a medical professional or institution (, PA, [employer], urgent care, hospital, or retirement...) When possible be specific @ -no Did you speak to anyone other than the patient for history (EMS, parent, family, police, friend...)? What history was obtained from this source @ -no Did you review nursing and triage notes (agree or disagree)? Why? @ -agree Are old charts reviewed (outside hosp., previous admission, EMS record, old EKG, old radiological studies, urgent care reports/EKG's, retirement records)? Report findings @ -yes Differential Diagnosis (chest pain, altered mental status, abdominal pain women, abdominal pain men, vaginal bleeding, weakness, fever, dyspnea, syncope, headache, dizziness, GI bleed, back pain, seizure, CVA, palpatations, mental health, musculoskeletal)? @ -prior EKG interpreted by me (3pts min.). @ -yes X-rays interpreted by me (1pt min.). @ -yes negative for acute disease CT interpreted by me (1pt min.). @ -no U/S interpreted by me (1pt. min.). @ -no What testing was considered but not performed or refused? (CT, X-rays, U/S, labs)? Why? @ -none What meds were considered but not given or refused? Why? @ -none Did you discuss the management of the patient with other professionals (emerita schultz i.eMiley Ty, PA, [employer], lab, RT, psych nurse, social service coordinator, attorney lawyer, teacher, home school liaison officer, case work aide)? Give summary @ -no Was smoking cessation discussed for >3mins.? @ -no Was critical care preformed (if so, how long)? @ -yes31 Were there social determinants of health that impacted care today? How? (Homelessness, low income, unemployed, alcoholism, drug addiction, transportation, low edu. Level, literacy, decrease access to med. care, senior living, rehab)? @ -none Was there de-escalation of care discussed even if they declined (Discuss DNR or withdrawal of care, Hospice)? DNR status @ -no What co-morbidities impacted this encounter? (DM, HTN, Smoking, COPD, CAD, Cancer, CVA, ARF, Chemo, Hep., AIDS, mental health diagnosis, sleep apnea, morbid obesity)? @ -none Was patient admitted / discharged? Hospital course, mention meds given and route, prescriptions, significant lab abnormalities, going to OR and other pertinent info. @ - 78 male will be admitted for chest pain observation history of CAD and 4 stents with chest pain here in the ER Admitted Undiagnosed new problem with uncertain prognosis? @ -no Drug Therapy requiring intensive monitoring for toxicity (Heparin, Nitro, Insulin, Cardizem)? @ -no Were any procedures done? @ -no Diagnosis/symptom? @ -Chest pain with chest pain observation and CAD Acute, or Chronic, or Acute on Chronic? @ -Acute Uncomplicated (without systemic symptoms) or Complicated (systemic symptoms)? @ -Complicated Side effects of treatment? @ -no Exacerbation, Progression, or Severe Exacerbation? @ -exacerbation Poses a threat to life or bodily function? How? (Chest pain, [place], [place], pneumonia, PE, COPD, DKA, ARF, appy, cholecystitis, CVA, Diverticulitis, Homicidal, Suicidal, threat to staff... and all critical care pts) @ -yes extremes of age (Ever Anguiano) Reevaluation #5: Differential Chest Pain: Stable Angina, Unstable Angina, STEMI, NSTEMI Aortic Dissection, Pneumothorax, Musculoskeletal, Esophageal Spasm GERD, Cholecystitis, Pancreatitis, Zoster, this is not meant to be an all-inclusive list. (Ever Anguiano) - Consultations Consultation #1: Spoke with Dr. Fountain who agrees to admit this patient (Ever Anguiano) Chest Pain MDM <Phylicia Weinstein - Last Filed: 12/02/23 15:20> <Ever Anguiano - Last Filed: 12/06/23 17:53> - MDM I completed the quick note portion of this chart signed Phylicia Weinstein PA-C (Phylicia Weinstein) 78 male will be admitted for chest pain observation history of CAD and 4 stents with chest pain here in the ER (Ever Anguiano) Critical Care Time Critical Care Time: Yes Total Critical Care Time: 31 <Ever Anguiano - Last Filed: 12/06/23 17:53> Disposition <Phylicia Weinstein - Last Filed: 12/02/23 15:20> Is patient prescribed a controlled substance at d/c from ED?: No Time of Disposition: 21:20 <Ever Anguiano - Last Filed: 12/06/23 17:53> Clinical Impression: Chest pain, CAD (coronary artery disease), Unstable angina pectoris Disposition: ADMITTED IP TO THIS HOSP Condition: Stable
[2023-12-02 16:11] LABS: Basophils # (A) 0.1 k/uL (0-0.2); Basophils % (A) 1 %; Eosinophils # (A) 0.2 k/uL (0-0.7); Eosinophils % (A) 3 %; HCT 36.2 % (39.0-53.0); HGB 11.6 gm/dL (13.0-17.5); Hypochromasia Slight; Lymphocytes # (A) 1.8 k/uL (1.0-4.8); Lymphocytes % (A) 21 %; MCH 26.8 pg (25.0-35.0); MCHC 32.1 g/dL (31.0-37.0); MCV 83.3 fL (80.0-100.0); Mean Platelet Volume 7.1; Monocytes # (A) 0.6 k/uL (0-1.0); Monocytes % (A) 6 %; Neutrophils # (A) 6.1 k/uL (1.3-7.7); Neutrophils % (A) 68 %; Platelet Count 248 k/uL (150-450); RBC 4.34 m/uL (4.30-5.90); RDW 15.9 % (11.5-15.5)
[2023-12-02 16:25] LABS: Partial Thromboplastin Time 23.3 sec (22.0-30.0); Prothrombin Time 10.7 sec (10.0-12.5)
[2023-12-02 16:29] LABS: ALT 20 U/L (4-49); AST 19 U/L (17-59); African American GFR (CKD) 74 (>60 ml/min/1.73 sqM); Alkaline Phosphatase 67 U/L (38-126); Anion Gap 11 mmol/L; Blood Urea Nitrogen 20 mg/dL (9-20); Calcium 9.1 mg/dL (8.4-10.2); Carbon Dioxide 22 mmol/L (22-30); Chloride 104 mmol/L (98-107); Glucose 141 mg/dL (74-99); Lipase 77 U/L (23-300); Magnesium 1.5 mg/dL (1.6-2.3); Non-African American GFR(CKD) 64 (>60 ml/min/1.73 sqM); Potassium 4.4 mmol/L (3.5-5.1); Sodium 137 mmol/L (137-145); Total Bilirubin 0.5 mg/dL (0.2-1.3); Total Protein 6.4 g/dL (6.3-8.2)
[2023-12-02 16:36] LABS: NT-Pro-B-Type Natriuretic Pept 310 pg/mL
--- NOTE | 2023-12-02 16:43 | XR ---
EXAMINATION TYPE: XR chest 2V DATE OF EXAM: 12/02/2023 COMPARISON: 08/02/2023 INDICATION: Chest pain short of breath TECHNIQUE: Frontal and lateral views of the chest are obtained. FINDINGS: The heart size is normal. The pulmonary vasculature is normal. The lungs are clear. Lower thoracic fixation with pedicle screws and rods are present. Anterior cerv ical fusion is noted. IMPRESSION: 1. No acute pulmonary process. [facility], Workstation: [facility], 12/02/2023 4:41 PM
[2023-12-02] MEDS ORDERED: NITROGLYCERIN SL TABS 0.4 MG TAB SUBLINGUAL PRN (21:29)
[2023-12-02] MEDS ORDERED: MORPHINE SULFATE 4 MG/ML SYRINGE IV PRN (21:29)
[2023-12-02] MEDS: MAGNESIUM OXIDE 400 MG TAB PO STA (22:00)
[2023-12-02] MEDS: MAGNESIUM SULFATE-D5W PMX 1 GM in DEXTROSE/WATER 1 100ML.BAG IVPB ONE (22:01)
[2023-12-02] MEDS: ASPIRIN 81 MG PO STA (22:01)
[2023-12-02] MEDS: HEPARIN SODIUM 1,000 UN/ML (10ML VL) IV ONE (22:09)
[2023-12-02] MEDS: HEPARIN SOD,PORK IN 0.45% NACL 25,000 UNIT in 0.45% NACL 1 250ML.BAG IV SCH (22:10)
[2023-12-03 04:35] LABS: Mean Platelet Volume 7.2; Platelet Count 234 k/uL (150-450)
[2023-12-03 08:59] LABS: Chol/HDL Ratio 2.54 Ratio; LDL Cholesterol,Calculated 39.8 mg/dL (0.0-131.0)
[2023-12-03] MEDS ORDERED: ATORVASTATIN 80 MG TAB PO SCH (09:00)
[2023-12-03] MEDS ORDERED: METOPROLOL TARTRATE 25 MG TAB PO SCH (09:00)
[2023-12-03] MEDS ORDERED: ASPIRIN 325 MG TAB PO SCH (09:00)
[2023-12-03] MEDS: METOPROLOL TARTRATE 12.5 MG TAB PO SCH (09:02)
[2023-12-03] MEDS: VALSARTAN 40 MG TAB PO SCH (09:02)
[2023-12-03] MEDS: ASPIRIN 81 MG PO SCH (09:03)
[2023-12-03] MEDS: ATORVASTATIN 40 MG TAB PO SCH (09:03)
[2023-12-03] MEDS: EZETIMIBE 10 MG TAB PO SCH (09:03)
[2023-12-03] MEDS: amLODIPine 10 MG TAB PO SCH (09:04)
[2023-12-03] MEDS ORDERED: LACTULOSE 20 GM/30 ML CUP PO PRN (12:52)
[2023-12-03] MEDS ORDERED: HYDROcodone/APAP 7.5-325MG 1 EACH TAB PO PRN (12:52)
--- NOTE | 2023-12-03 13:06 | P.HPIM ---
History of Present Illness H&P Date: 12/03/23 Primitivo Benjamin is a 78-year-old male patient who presented to the ER with concerns of chest pain. Patient reports the pain started yesterday associated with shortness of breath and intermittent in nature. Patient has a past medical history of stent in April 2023 and reports that he recently saw his protection consultant and was taken off anticoagulation. Additional medical history includes asthma, CAD, chest pain, diabetes mellitus, GERD, hyperlipidemia, hypertension and chronic back pain. Chest x-ray completed showing no acute pulmonary process. EKG completed showing sinus rhythm lab work revealing white blood cell 9.0, hemoglobin 11.6, creatinine 1.10 bun 20 troponins negative x 3. Magnesium 1.5. Patient was started on heparin drip in ER cardiology services consulted. At this time patient is resting comfortably in bed. Patient denies chest pain or shortness of breath. Patient denies nausea vomiting or diarrhea. Patient denies any urinary burning or frequency Review of Systems Please refer to HPI otherwise unremarkable Past Medical History Past Medical History: Asthma, Coronary Artery Disease (CAD), Chest Pain / Angina, Diabetes Mellitus, GERD/Reflux, Hearing Disorder / Deafness, Hyperlipidemia, Hypertension Additional Past Medical History / Comment(s): IDDM. Hx chronic back pain, chronic pain syndrome. Neuropathy bilateral feet, [place]/uses hearing aids bilaterally. History of Any Multi-Drug Resistant Organisms: None Reported Past Surgical History: Heart Catheterization With Stent Additional Past Surgical History / Comment(s): trigger 2nd digit left hand 10-12-20, trigger finger release rt hand,Cervical fusion, back lami/injections, neck sx, carpal tunnel surgery, colonoscopy/benign polypectomy. 3 stents placed 05/2021 and 04/2023. total of 5 heart caths. Past Anesthesia/Blood Transfusion Reactions: No Reported Reaction Additional Past Anesthesia/Blood Transfusion Reaction / Comment(s): no problems with prior blood transfusion. Date of Last Stent Placement:: 2023 x3 stent total Past Psychological History: No Psychological Hx Reported Smoking Status: Never smoker Past Alcohol Use History: None Reported Past Drug Use History: None Reported - Past Family History Father Family Medical History: Myocardial Infarction ([place]) Additional Family Medical History / Comment(s): Passed at age 72. Mother Family Medical History: Myocardial Infarction ([place]) Additional Family Medical History / Comment(s): Passed at age 77. Brother(s) Family Medical History: Myocardial Infarction ([place]) Additional Family Medical History / Comment(s): 3 brothers passed from [place] in 50's. Sister(s) Family Medical History: Myocardial Infarction ([place]) Additional Family Medical History / Comment(s): sister 50s Medications and Allergies Home Medications Medication Instructions Recorded Confirmed Type glipiZIDE [Glucotrol] 10 mg PO DAILY 01/17/14 12/03/23 History amLODIPine BESYLATE [Norvasc] 10 mg PO DAILY 04/19/14 12/03/23 History metFORMIN HCL [Glucophage] 1,000 mg PO BID #0 10/18/17 12/03/23 Rx Insulin Glargine [Lantus Vial] 60 unit SQ HS 07/20/19 12/03/23 History INSULIN LISPRO (humaLOG) [humaLOG] 20 - 30 units SQ AC-TID 01/09/20 12/03/23 History Atorvastatin [Lipitor] 40 mg PO HS 09/19/22 12/03/23 History Omeprazole [PriLOSEC] 20 mg PO BID 11/21/22 12/03/23 History Valsartan [Diovan] 40 mg PO DAILY 04/07/23 12/03/23 History Nitroglycerin Sl Tabs [Nitrostat] 0.4 mg SL Q5M PRN 06/18/23 12/03/23 History Pregabalin [Lyrica] 150 mg PO BID 06/18/23 12/03/23 History Ezetimibe [Zetia] 10 mg PO DAILY 30 Days #30 tab 08/04/23 12/03/23 Rx Cyclobenzaprine [Flexeril] 5 mg PO TID PRN 12/03/23 12/03/23 History HYDROcodone/APAP 7.5-325MG [[place] 1 tab PO Q8H PRN 12/03/23 12/03/23 History 7.5-325] Lactulose 10 gm PO DAILY PRN 12/03/23 12/03/23 History Meloxicam [Mobic] 15 mg PO DAILY 12/03/23 12/03/23 History Metoprolol Tartrate [Lopressor] 25 mg PO BID 12/03/23 12/03/23 History Allergies Allergy/AdvReac Type Severity Reaction Status Date / Time No Known Allergies Allergy Verified 12/03/23 10:21 Physical Exam Vitals: Vital Signs Temp Pulse Pulse Resp BP BP Pulse Ox 12/03/23 05:21 54 L 16 147/79 93 L 12/03/23 02:00 64 14 141/74 92 L 12/02/23 23:48 64 16 139/75 95 12/02/23 15:08 97.8 F 73 16 112/66 97 Intake and Output 12/02/23 12/03/23 12/03/23 22:59 06:59 14:59 Other: Voiding Method Toilet # Voids 1 Weight 90.718 kg Head normocephalic Neck supple Lungs clear to auscultation bilaterally no wheezing or crackles Heart regular rate and rhythm S1-S2, no rub or gallop Abdomen is soft nontender nondistended positive bowel sounds no hepatosplenomegaly Extremities no edema Neuro alert and orientated to 3 Results CBC & Chem 7: 12/03/23 03:46 12/02/23 15:29 Labs: Abnormal Lab Results - Last 24 Hours (Table) 12/02/23 12/02/23 12/03/23 Range/Units 15:29 15:29 03:46 Hgb 11.6 L (13.0-17.5) gm/dL Hct 36.2 L (39.0-53.0) % RDW 15.9 H (11.5-15.5) % APTT (22.0-30.0) sec Glucose 141 H (74-99) mg/dL Magnesium 1.5 L (1.6-2.3) mg/dL Triglycerides 174.00 H (0.00-149.00) mg/dL 12/03/23 12/03/23 Range/Units 03:46 08:52 Hgb (13.0-17.5) gm/dL Hct (39.0-53.0) % RDW (11.5-15.5) % APTT 58.6 H 59.2 H (22.0-30.0) sec Glucose (74-99) mg/dL Magnesium (1.6-2.3) mg/dL Triglycerides (0.00-149.00) mg/dL Assessment and Plan Assessment: 1. Chest pain. Troponins negative x 3 2. History of coronary artery disease with previous stent placement in April 2023. 3. History of essential hypertension 4. History of hyperlipidemia 5. History of degenerative disc disease with chronic back pain 6. History of BPH 7. History of GERD Cardiology services consulted Patient started on heparin drip Time with Patient: Greater than 30 (Greater than 60% of the total time spent in counseling and coordination of care)
[2023-12-03] MEDS: CLOPIDOGREL 75 MG TAB PO SCH (14:13)
--- NOTE | 2023-12-03 14:24 | P.DS ---
Providers Date of admission: 12/02/23 21:30 Expected date of discharge: 12/03/23 Attending physician: Pete Fountain Consults: 12/02/23 21:29 Consult Physician Urgent Consulting Provider: Ree Aranda Consult Reason/Comments: cp Do you want consulting provider notified?: Yes Primary care physician: Pete Fountain [facility] Hospital Course: Discharge diagnosis 1. Chest pain. Troponins negative x 3 2. History of coronary artery disease with previous stent placement in April 2023. 3. History of essential hypertension 4. History of hyperlipidemia 5. History of degenerative disc disease with chronic back pain 6. History of BPH 7. History of GERD Hospital course Primitivo Benjamin is a 78-year-old male patient who presented to the ER with concerns of chest pain. Patient reports the pain started yesterday associated with shortness of breath and intermittent in nature. 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 Additional medical history includes asthma, CAD, chest pain, diabetes mellitus, GERD, hyperlipidemia, h ypertension and chronic back pain. Chest x-ray completed showing no acute pulmonary process. EKG completed showing sinus rhythm lab work revealing white blood cell 9.0, hemoglobin 11.6, creatinine 1.10 bun 20 troponins negative x 3. Magnesium 1.5. Patient was started on heparin drip in ER cardiology services consulted. At this time patient is resting comfortably in bed. Patient denies chest pain or shortness of breath. Patient denies nausea vomiting or diarrhea. Patient denies any urinary burning or frequency Patient was evaluated by cardiology services and was notified per nursing staff the patient had been cleared. Did discuss case with cardiology nurse practitioner patient has been cleared for discharge. Patient also informed by cardiology services that he was cleared and will follow-up in office for further management. Patient was restarted back on his Plavix per cardiology patient to follow-up with PCP and cardiology services for further management. At this time patient denies chest pain or shortness of breath. Patient denies nausea vomiting or diarrhea. Patient denies any urinary burning or frequency Patient Condition at Discharge: Stable Plan - Discharge Summary New Discharge Prescriptions: New Metoprolol Tartrate [Lopressor] 12.5 mg PO BID 30 Days #60 tab Clopidogrel [Plavix] 75 mg PO DAILY 30 Days #30 tab Aspirin 81 mg PO DAILY 30 Days #30 tab Continue glipiZIDE [Glucotrol] 10 mg PO DAILY amLODIPine BESYLATE [Norvasc] 10 mg PO DAILY metFORMIN HCL [Glucophage] 1,000 mg PO BID #0 Insulin Glargine [Lantus Vial] 60 unit SQ HS INSULIN LISPRO (humaLOG) [humaLOG] 20 - 30 units SQ AC-TID Pregabalin [Lyrica] 150 mg PO BID Cyclobenzaprine [Flexeril] 5 mg PO TID PRN PRN Reason: Muscle Spasm HYDROcodone/APAP 7.5-325MG [[place] 7.5-325] 1 tab PO Q8H PRN PRN Reason: Pain Meloxicam [Mobic] 15 mg PO DAILY Atorvastatin [Lipitor] 40 mg PO HS Omeprazole [PriLOSEC] 20 mg PO BID Valsartan [Diovan] 40 mg PO DAILY Nitroglycerin Sl Tabs [Nitrostat] 0.4 mg SL Q5M PRN PRN Reason: Chest Pain Ezetimibe [Zetia] 10 mg PO DAILY 30 Days #30 tab Lactulose 10 gm PO DAILY PRN PRN Reason: Constipation Discontinued Metoprolol Tartrate [Lopressor] 25 mg PO BID Discharge Medication List glipiZIDE [Glucotrol] 10 mg PO DAILY 01/17/14 [History] amLODIPine BESYLATE [Norvasc] 10 mg PO DAILY 04/19/14 [History] metFORMIN HCL [Glucophage] 1,000 mg PO BID #0 10/18/17 [Rx] Insulin Glargine [Lantus Vial] 60 unit SQ HS 07/20/19 [History] INSULIN LISPRO (humaLOG) [humaLOG] 20 - 30 units SQ AC-TID 01/09/20 [History] Atorvastatin [Lipitor] 40 mg PO HS 09/19/22 [History] Omeprazole [PriLOSEC] 20 mg PO BID 11/21/22 [History] Valsartan [Diovan] 40 mg PO DAILY 04/07/23 [History] Nitroglycerin Sl Tabs [Nitrostat] 0.4 mg SL Q5M PRN 06/18/23 [History] Pregabalin [Lyrica] 150 mg PO BID 06/18/23 [History] Ezetimibe [Zetia] 10 mg PO DAILY 30 Days #30 tab 08/04/23 [Rx] Aspirin 81 mg PO DAILY 30 Days #30 tab 12/03/23 [Rx] Clopidogrel [Plavix] 75 mg PO DAILY 30 Days #30 tab 12/03/23 [Rx] Cyclobenzaprine [Flexeril] 5 mg PO TID PRN 12/03/23 [History] HYDROcodone/APAP 7.5-325MG [[place] 7.5-325] 1 tab PO Q8H PRN 12/03/23 [History] Lactulose 10 gm PO DAILY PRN 12/03/23 [History] Meloxicam [Mobic] 15 mg PO DAILY 12/03/23 [History] Metoprolol Tartrate [Lopressor] 12.5 mg PO BID 30 Days #60 tab 12/03/23 [Rx] Follow up Appointment(s)/Referral(s): Ree Aranda MD [STAFF PHYSICIAN] - 1 Week Pete Fountain MD [Primary Care Provider] - 1-2 days Discharge Disposition: HOME SELF-CARE
--- NOTE | 2023-12-03 14:29 | P.CRDCN ---
History of Present Illness Consult date: 12/03/23 Reason for Consult (text): Chest pain History of present illness: This is a 78-year-old male patient of Dr. Aranda with past medical history of multivessel coronary artery disease status post stents, hypertension, mixed hyperlipidemia, diabetes mellitus type 2. We have been asked to evaluate the patient for chest pain. Patient states he developed chest pain on the left side along with arms and back. It was an achy type sensation. He states it is completely gone at this time. Pain was not like what he had back in April when he had stents done's. He states he was recently taken off the blood thinner about 2 weeks ago. He has not had any chest pain since he arrived. Blood pressure 147/79, heart rate 54, pulse ox 93% on room air. Patient has been started on a heparin drip. EKG: Sinus rhythm with no acute ST-T wave changes. Chest x-ray: No acute process Laboratory studies: WBC 9, hemoglobin 11.6. Troponins negative x 3. Electrolytes are normal. BUN 20 creatinine 1.1. proBNP 310. Home cardiac medications according to office visit 11/10/2023: Amlodipine 10 mg daily, aspirin 81 mg daily, atorvastatin 40 mg daily, Zetia 10 mg daily, Imdur 60 mg daily, metoprolol tartrate 25 mg a half a tablet 2 times daily, valsartan 40 mg daily Lexiscan Cardiolite stress test performed 04/08/2023 revealed small area of apical lateral reversible ischemia. Cardiac catheterization performed 04/09/2023 revealed severe stenosis in the prox imal left circumflex, patent stent in the LAD, RCA and first OM, mild disease in the LAD and RCA. Patient subsequently underwent successful stenting of the ostium and proximal left circumflex. Review Of Systems: At the time of my exam: CONSTITUTIONAL: Denies fever or chills. HEENT: Denies blurred vision, vision changes, or eye pain. Denies hemoptysis CARDIOVASCULAR: Denies chest pain. Denies orthopnea. Denies PND. Denies palpitations RESPIRATORY: Denies shortness of breath. GASTROINTESTINAL: Denies abdominal pain. Denies nausea or vomiting. HEMATOLOGIC: Denies bleeding disorders. GENITOURINARY: Denies any blood in urine. SKIN: Denies puritis. Denies rash. Physical examination: Gen: This is a 78-year-old male in no acute distress VS: reviewed HEENT: Head is atraumatic, normocephalic. Pupils equal, round. Sclerae is anicteric. NECK: Supple. No JVD. LUNGS: Clear to auscultation. No wheezes or rhonchi. No intercostal retractions. HEART: Regular rate and rhythm. 2/6 TISH. ABDOMEN: Soft No tenderness. EXTREMITIES: No pedal edema. No calf tenderness. NEUROLOGICAL: Patient is awake, alert and oriented x3. Assessment: Atypical chest pain, acute coronary syndrome ruled out History of multivessel coronary artery disease with previous stents Hypertension Mixed hyperlipidemia Diabetes mellitus type 2 Plan: Resume patient's home cardiac medications Discontinue heparin Resume patient on Plavix 75 mg daily Patient is cleared from cardiology for discharge and may follow-up in the office with Dr. Aranda in 1 week. Thank you kindly for this consultation. Nurse practitioner note has been reviewed, I agree with documented findings and plan of care. Patient was seen and examined. Past Medical History Past Medical History: Asthma, Coronary Artery Disease (CAD), Chest Pain / Angina, Diabetes Mellitus, GERD/Reflux, Hearing Disorder / Deafness, Hyperlipidemia, Hypertension Additional Past Medical History / Comment(s): IDDM. Hx chronic back pain, chronic pain syndrome. Neuropathy bilateral feet, [place]/uses hearing aids bilaterally. History of Any Multi-Drug Resistant Organisms: None Reported Past Surgical History: Heart Catheterization With Stent Additional Past Surgical History / Comment(s): trigger 2nd digit left hand 10-12-20, trigger finger release rt hand,Cervical fusion, back lami/injections, neck sx, carpal tunnel surgery, colonoscopy/benign polypectomy. 3 stents placed 05/2021 and 04/2023. total of 5 heart caths. Past Anesthesia/Blood Transfusion Reactions: No Reported Reaction Additional Past Anesthesia/Blood Transfusion Reaction / Comment(s): no problems with prior blood transfusion. Date of Last Stent Placement:: 2023 x3 stent total Past Psychological History: No Psychological Hx Reported Smoking Status: Never smoker Past Alcohol Use History: None Reported Past Drug Use History: None Reported - Past Family History Father Family Medical History: Myocardial Infarction (ME) Additional Family Medical History / Comment(s): Passed at age 72. Mother Family Medical History: Myocardial Infarction (ME) Additional Family Medical History / Comment(s): Passed at age 77. Brother(s) Family Medical History: Myocardial Infarction (ME) Additional Family Medical History / Comment(s): 3 brothers passed from ME in 50's. Sister(s) Family Medical History: Myocardial Infarction (ME) Additional Family Medical History / Comment(s): sister 50s Medications and Allergies Home Medications Medication Instructions Recorded Confirmed Type glipiZIDE [Glucotrol] 10 mg PO DAILY 01/17/14 12/03/23 History amLODIPine BESYLATE [Norvasc] 10 mg PO DAILY 04/19/14 12/03/23 History metFORMIN HCL [Glucophage] 1,000 mg PO BID #0 10/18/17 12/03/23 Rx Insulin Glargine [Lantus Vial] 60 unit SQ HS 07/20/19 12/03/23 History INSULIN LISPRO (humaLOG) [humaLOG] 20 - 30 units SQ AC-TID 01/09/20 12/03/23 History Atorvastatin [Lipitor] 40 mg PO HS 09/19/22 12/03/23 History Omeprazole [PriLOSEC] 20 mg PO BID 11/21/22 12/03/23 History Valsartan [Diovan] 40 mg PO DAILY 04/07/23 12/03/23 History Nitroglycerin Sl Tabs [Nitrostat] 0.4 mg SL Q5M PRN 06/18/23 12/03/23 History Pregabalin [Lyrica] 150 mg PO BID 06/18/23 12/03/23 History Ezetimibe [Zetia] 10 mg PO DAILY 30 Days #30 tab 08/04/23 12/03/23 Rx Aspirin 81 mg PO DAILY 30 Days #30 tab 12/03/23 Rx Clopidogrel [Plavix] 75 mg PO DAILY 30 Days #30 tab 12/03/23 Rx Cyclobenzaprine [Flexeril] 5 mg PO TID PRN 12/03/23 12/03/23 History HYDROcodone/APAP 7.5-325MG [[place] 1 tab PO Q8H PRN 12/03/23 12/03/23 History 7.5-325] Lactulose 10 gm PO DAILY PRN 12/03/23 12/03/23 History Meloxicam [Mobic] 15 mg PO DAILY 12/03/23 12/03/23 History Metoprolol Tartrate [Lopressor] 12.5 mg PO BID 30 Days #60 tab 12/03/23 Rx Allergies Allergy/AdvReac Type Severity Reaction Status Date / Time No Known Allergies Allergy Verified 12/03/23 10:21 Physical Exam Vitals: Vital Signs Temp Pulse Pulse Resp BP BP Pulse Ox 12/03/23 05:21 54 L 16 147/79 93 L 12/03/23 02:00 64 14 141/74 92 L 12/02/23 23:48 64 16 139/75 95 12/02/23 15:08 97.8 F 73 16 112/66 97 Intake and Output 12/02/23 12/03/23 12/03/23 22:59 06:59 14:59 Other: Voiding Method Toilet # Voids 1 Weight 90.718 kg Results 12/03/23 03:46 12/02/23 15:29 Cardiac Enzymes 12/02/23 12/02/23 12/02/23 Range/Units 15:29 15:29 20:25 AST 19 (17-59) U/L Troponin I <0.012 <0.012 (0.000-0.034) ng/mL 12/02/23 Range/Units 23:30 AST (17-59) U/L Troponin I <0.012 (0.000-0.034) ng/mL Coagulation 12/02/23 12/02/23 12/03/23 Range/Units 15:29 21:36 03:46 PT 10.7 (10.0-12.5) sec APTT 23.3 23.3 58.6 H (22.0-30.0) sec CBC 12/02/23 12/03/23 Range/Units 15:29 03:46 WBC 9.0 (3.8-10.6) k/uL RBC 4.34 (4.30-5.90) m/uL Hgb 11.6 L (13.0-17.5) gm/dL Hct 36.2 L (39.0-53.0) % Plt Count 248 234 (150-450) k/uL Comprehensive Metabolic Panel 12/02/23 Range/Units 15:29 Sodium 137 (137-145) mmol/L Potassium 4.4 (3.5-5.1) mmol/L Chloride 104 (98-107) mmol/L Carbon Dioxide 22 (22-30) mmol/L BUN 20 (9-20) mg/dL Creatinine 1.10 (0.66-1.25) mg/dL Glucose 141 H (74-99) mg/dL Calcium 9.1 (8.4-10.2) mg/dL AST 19 (17-59) U/L ALT 20 (4-49) U/L Alkaline Phosphatase 67 (38-126) U/L Total Protein 6.4 (6.3-8.2) g/dL Albumin 4.0 (3.5-5.0) g/dL Current Medications Generic Name Dose Route Start Last Admin Trade Name Freq PRN Reason Stop Dose Admin Aspirin 325 mg 12/03/23 09:00 Aspirin 325 Mg Tab PO DAILY [facility] Atorvastatin Calcium 80 mg 12/03/23 09:00 Atorvastatin 80 Mg Tab PO DAILY [facility] Heparin Sodium/Sodium Chloride 250 mls @ 10 mls/hr 12/02/23 21:30 12/02/23 22:10 25,000 unit/ Sodium Chloride IV 11.023 units/kg/hr .Q24H [place] 10 mls/hr Administration Protocol 11.023 UNITS/KG/HR Metoprolol Tartrate 25 mg 12/03/23 09:00 Metoprolol Tartrate 25 Mg Tab PO BID [facility] Morphine Sulfate 4 mg 12/02/23 21:29 Morphine Sulfate 4 Mg/Ml Syringe IV Q4HR PRN Chest Pain Nitroglycerin 0.4 mg 12/02/23 21:29 Nitroglycerin Sl Tabs 0.4 Mg Tab SUBLINGUAL Q5M PRN Chest Pain Intake and Output 12/02/23 12/03/23 12/03/23 22:59 06:59 14:59 Other: Voiding Method Toilet # Voids 1 Weight 90.718 kg 12/03/23 03:46 12/02/23 15:29
[2023-12-03 14:47] VITALS: BP 132/71; PULSE 71; RESP 15; TEMP 98
[2023-12-03] MEDS ORDERED: INSULIN DETEMIR (LEVEMIR) 100 UNIT/ML SYR SQ SCH (21:00)
[2023-12-03] MEDS ORDERED: VALSARTAN 40 MG TAB PO SCH (21:00)
[2023-12-03] MEDS ORDERED: PREGABALIN 75 MG CAP PO SCH (21:00)
--- NOTE | 2023-12-04 06:37 | CA ---
Transthoracic Echo Report Name: Primitivo Benjamin Age: 78 Gender: M : 1945 Exam Date: 12/03/2023 10:25 Exam Location: [facility] Ht (in): 69 Wt (lb): 200 Ordering Physician: Ever Anguiano DO Attending/Referring Phys: [id number], Silvio Registration Scheduling Specialist Avis Napoles, JAIME Procedure CPT: Indications: CP, Angina pectoris, unspecified Cardiac Hx: Technical Quality: Fair Contrast 1: Total Dose (mL): Contrast 2: Total Dose (mL): MEASUREMENTS (Male / Female) Normal Values 2D ECHO LV Diastolic Diameter PLAX 4.4 cm 4.2 - 5.9 / 3.9 - 5.3 cm LV Systolic Diameter PLAX 2.7 cm IVS Diastolic Thickness 1.3 cm 0.6 - 1.0 / 0.6 - 0.9 cm LVPW Diastolic Thickness 1.2 cm 0.6 - 1.0 / 0.6 - 0.9 cm LV Relative Wall Thickness 0.6 RV Internal Dim ED PLAX 1.9 cm LA Systolic Diameter LX 3.6 cm 3.0 - 4.0 / 2.7 - 3.8 cm LV Diastolic Volume MOD BP 57.5 cm??? 67 - 155 / 56 - 104 cm??? LV Systolic Volume MOD BP 25.0 cm??? 22 - 58 / 19 - 49 cm??? LV Ejection Fraction MOD BP 56.6 % >= 55 % LV Cardiac Index MOD BP 980.1 cm???/min???m??? LV Diastolic Volume MOD 4C 59.8 cm??? LV Systolic Volume MOD 4C 20.8 cm??? LV Ejection Fraction MOD 4C 65.2 % LV Cardiac Index MOD 4C 1174.3 cm???/min???m??? LV Diastolic Length 4C 6.7 cm LV Systolic Length 4C 5.7 cm LV Diastolic Volume MOD 2C 56.4 cm??? LV Systolic Volume MOD 2C 31.2 cm??? LV Ejection Fraction MOD 2C 44.6 % LV Cardiac Index MOD 2C 758.5 cm???/min???m??? LV Diastolic Length 2C 6.7 cm LV Systolic Length 2C 5.7 cm M-MODE Aortic Root Diameter MM 2.9 cm LA Systolic Diameter MM 3.9 cm LA Ao Ratio MM 1.4 AV Cusp Separation MM 1.7 cm DOPPLER Mitral E Point Velocity 138.4 cm/s Mitral A Point Velocity 131.0 cm/s Mitral E to A Ratio 1.1 MV Deceleration Time 304.8 ms MV E' Velocity 5.3 cm/s Mitral E to MV E' Ratio 26.0 FINDINGS Left Ventricle Left ventricular ejection fraction is estimated at 55-60%. Mildly increased septal wall thickness. No obvious regional wall motion abnormalities. Left ventricular cavity size normal. Right Ventricle Normal RV size. Right ventricular systolic pressure within normal limits. Right Atrium Mild right atrial dilatation. Left Atrium Mild left atrial dilatation. Mitral Valve Mitral valve thickened. Mild mitral regurgitation. No mitral stenosis. Aortic Valve Trileaflet aortic valve. No aortic stenosis. No aortic regurgitation. Tricuspid Valve Structurally normal tricuspid valve. Trace tricuspid regurgitation. No tricuspid stenosis. Pulmonic Valve Structurally normal pulmonic valve. Trace pulmonic regurgitation. Pericardium No pericardial or pleural effusion. Aorta Normal size aortic root and proximal ascending aorta. CONCLUSIONS LVEF 55 to 60% No obvious regional wall motion abnormality Mild concentric LVH Normal RV size systolic function Mild biatrial dilatation No significant valve dysfunction Previewed by: Dr Primo Ross (Electronically Signed) Final Date: 04 December 2023 06:36
[2023-12-04] MEDS ORDERED: MELOXICAM 7.5 MG TAB PO SCH (09:00)
[2023-12-04] MEDS ORDERED: VALSARTAN 40 MG TAB PO SCH (09:00)
[2023-12-05 08:14] LABS: Glucose,Whole Blood 162 mg/dL (70-110)
== END 2023-12-03 14:35 | disposition home or self-care (01) ==
LOC: EC 15:01 → 6NMEDSUR 21:30
PROVIDERS: ADMIT Internal Medicine; ATTEND Internal Medicine
CPT/HCPCS: 36415; 71046; 80053; 80061; 83690; 83735; 83880; 84484; 85025; 85049; 85610; 85730; 93005; 93306; 96374; 99291

== ENCOUNTER → 2024-01-04 | Outpatient (CLI) | payer MEDICARE ==
--- NOTE | 2024-01-04 09:20 | MR ---
EXAMINATION TYPE: MR thoracic spine wo con DATE OF EXAM: 01/04/2024 9:05 AM COMPARISON: 08/02/2023. CLINICAL INDICATION: Male, 78 years old with history of R07.89 Rib pain, Middle back Pain radiating a round both sides to front of Chest TECHNIQUE: Multi planar, multi sequence imaging was performed utilizing: T1-weighted, short-tau inver dilshad recovery and T2-weighted of the thoracic spine. IV Contrast: cc (none if empty) FINDINGS: Nondiagnostic evaluation of the lower spine below the level of T9 due to susceptibility from hardware . Alignment: Alignment is within normal limits. Vertebral bodies have preserved heights. Spinal cord: Spinal cord is within normal limits for signal. Discs: Multilevel disc desiccation. No evidence of significant spinal canal stenosis extending from T 1 through T9. Moderate neural foraminal stenosis at T9-T10 secondary disc bulge and facet joint arthr opathy. There is no evidence of extradural defects or central spinal canal narrowing at any thoracic vertebral body level visualized Partially visualized in the lower cervical spine is severe spinal canal stenosis. With at least sever e spinal canal stenosis. This may have progressed from 2018. Wide [id number] limits close comparis on Osseous structures: Inversion recovery edema at the inferior anterior endplate of T9 is noted. Multil evel osteophyte formation and facet joint arthropathy. Scattered disc space narrowing. IMPRESSION: 1. Partially visualized in the lower cervical spine is severe spinal canal stenosis. Further evaluat ion MRI cervical spine to compare 09/16/2017 MRI is recommended. 2. No evidence for significant spinal canal stenosis in the upper thoracic spine. 3. Moderate neural foraminal stenosis at T9-T10 secondary to facet joint arthropathy and disc bulgin g. Nondiagnostic evaluation of the lower spine below the level of T9 due to susceptibility from hardw are. [facility], , 01/04/2024 9:17 AM
== END | disposition home or self-care (01) ==
LOC: RADMRIMAIN 07:12
PROVIDERS: ATTEND Internal Medicine
DX: M48.02 Spinal stenosis, cervical region (principal); M99.72 Connective tissue and disc stenosis of intervertebral foramina of thoracic region; M47.814 Spondylosis without myelopathy or radiculopathy, thoracic region; R07.89 Other chest pain
CPT/HCPCS: 72146

== ENCOUNTER → 2024-01-06 | Outpatient (CLI) | payer MEDICARE ==
--- NOTE | 2024-01-06 10:58 | CT ---
EXAMINATION TYPE: CT chest wo con CT DLP: 776 mGycm, Automated exposure control for dose reduction was used. DATE OF EXAM: 01/06/2024 10:34 AM COMPARISON: CTA chest 08/02/2023, 06/18/2023 CLINICAL INDICATION:Male, 78 years old with history of R07.89 RIB PAIN; PHH, rib pain both sides TECHNIQUE: Multiple axial images were obtained through the chest without IV contrast. Lack of IV or o ral contrast limits evaluation of solid and hollow organ viscera. . Coronal and sagittal reformats re viewed. FINDINGS: LUNGS/ PLEURA: Dependent bibasilar subsegmental atelectasis. No focal consolidation, pneumothorax, or pleural effusion. No suspicious pulmonary nodule or mass. AIRWAY: Patent and unremarkable.. HEART: Size within normal limits. No pericardial effusion. Moderate coronary artery calcifications. S mall aortic valvular calcifications. MEDIASTINUM: No gross evidence of adenopathy. VASCULATURE: No aortic aneurysm. MUSCULOSKELETAL: No acute osseous abnormalities. Partial visualization of thoracolumbar fusion hardwa re beginning at T10. Multilevel degenerative disc disease. SOFT TISSUES/LYMPH NODES: Unremarkable. LOWER NECK: No significant findings. UPPER ABDOMEN: Cholelithiasis. Punctate calcification within the spleen. Small hiatal hernia. Liver i s diffusely hypoattenuating. IMPRESSION: 1. No acute thoracic process. No acute fracture. 2. Cholelithiasis. 3. Hepatic steatosis. [facility], , 01/06/2024 10:55 AM
== END | disposition home or self-care (01) ==
LOC: RADCTMAIN 09:59
PROVIDERS: ATTEND Internal Medicine
DX: K80.20 Calculus of gallbladder without cholecystitis without obstruction (principal); K76.0 Fatty (change of) liver, not elsewhere classified; K44.9 Diaphragmatic hernia without obstruction or gangrene; R07.81 Pleurodynia
CPT/HCPCS: 71250

== ENCOUNTER → 2024-02-05 | Outpatient (CLI) | payer MEDICARE ==
--- NOTE | 2024-02-05 16:43 | MR ---
EXAMINATION TYPE: MR cervical spine wo con DATE OF EXAM: 02/05/2024 1:00 PM COMPARISON: None. CLINICAL INDICATION: Male, 78 years old with history of M54.2 CERVICALGIA, neck pain that radiates do wn both arms and into hands/ fingers TECHNIQUE: Multiplanar, multisequence images of the cervical spine were acquired without contrast. FINDINGS: No craniocervical junction abnormality, predental space widening, or prevertebral soft tissue swellin g. Postsurgical change C4-C5 ACDF with mature interbody ankylosis. Moderate disc/endplate degenerative change below the fusion at C5-C6 and C6-C7. Ligamentum flavum thickening and advanced hypertrophic facet uncovertebral joint arthropathy at these levels. There is degenerative grade 1, nearly grade 2 anterolisthesis at C7-T1 from hypertrophic facet arthro nathalia. There is congenital spinal canal narrowing with a galena AP canal dimension of 9 mm. Mild bulging discs and scattered ligamentum flavum thickening further accentuates the canal narrowing at various levels. Overall moderate spinal canal stenosis at C2-C3 with abutment and slight flattening of the dorsal cor d. Moderate overall narrowing of the spinal canal C3-C4 with abutment and slight flattening of the ventr al cord. More severe spinal canal stenoses at C5-C6 and C6-C7 due to combination of disc osteophyte complex an d ligamentum flavum thickening. AP canal dimension narrowed down to 3.5 - 4.0 mm. There is indentatio n onto the cord. Artifact projecting over the cord. Limits assessment for myelopathic signal change. There is [id number] bilateral neural foraminal stenosis at C3-C4, moderate to severe left and m oderate right neural foraminal stenosis C4-C5, severe bilateral neuroforaminal stenoses at C5 at C6 a nd C6-C7. Moderate to severe right-sided neural foraminal stenosis at C7-T1. No prevertebral or paravertebral soft tissue abnormality seen. IMPRESSION: 1. Status post C4-C5 ACDF. There is underlying congenital spinal canal stenosis with galena AP canal dimension of 9 mm. Multilevel moderate to advanced uncovertebral joint and facet arthropathy and mode rate degenerative disc disease and scattered ligamentum flavum thickening particularly below the fusi on. 2. Degenerative grade 1, nearly grade 2 anterolisthesis C7-T1. 3. Changes result in overall severe spinal canal stenoses at C5-C6 and C6-C7. AP canal dimension narr owed down to 3.5 to 4.0 mm with indentation onto both the dorsal and ventral cord. Allowing for artif act at this level, no definitive myelopathic cord signal change. Correlate with symptoms. 4. Variable neural foraminal stenoses as outlined above, severe on both sides at C5-C6 and C6-C7. Mod erate to severe on the left at C4-C5 and on the right at C7-T1. [facility], , 02/05/2024 4:41 PM
== END | disposition home or self-care (01) ==
LOC: RADMRIMAIN 12:01
PROVIDERS: ATTEND Internal Medicine
DX: M50.33 Other cervical disc degeneration, cervicothoracic region (principal); M48.02 Spinal stenosis, cervical region
CPT/HCPCS: 72141

== ENCOUNTER → 2024-04-01 | Outpatient (CLI) | payer MEDICARE | END | disposition home or self-care (01) | LOC: LABPAT 10:30 | PROVIDERS: ATTEND Orthopaedic Surgery | DX: Z01.812 Encounter for preprocedural laboratory examination (principal); M47.12 Other spondylosis with myelopathy, cervical region; M50.020 Cervical disc disorder with myelopathy, mid-cervical region, unspecified level; Z22.322 Carrier or suspected carrier of Methicillin resistant Staphylococcus aureus | CPT/HCPCS: 86850; 86900; 86901; 87070 ==

== ENCOUNTER 2024-04-21 21:18 | Inpatient (IN) | payer MEDICARE ==
--- NOTE | 2024-04-21 22:21 | ED ---
General Adult HPI - General Chief complaint: Recheck/Abnormal Lab/Rx Stated complaint: Hallucinations Time Seen by Provider: 04/21/24 22:01 Source: patient, RN notes reviewed, old records reviewed Mode of arrival: wheelchair Limitations: no limitations - History of Present Illness Initial comments: Patient is an 79-year-old male who presents emergency department complaining of hallucinations. Patient had a stage I revision of C3-C7 ACDF, stage II C2-T2 decompression and fusion completed on April 13, 2024. Patient was discharged home from the hospital on April 17, 2024. Was progressing well but for the last day and a half or so, patient has been having visual hallucinations of seeing ants wander around the james and on the ground. Has no other symptoms. Denies fevers or chills. States his incisions are not bothering him and are not painful. Patient's family is assisting with managing the wounds and states that they appear clean with no discharge. Patient denies any worsening neck pain. Is not sure if it is secondary to being on oxycodone for pain has not taken anything since earlier this morning but is still having to hallucinations. He has not waxing waning. No auditory hallucinations. No new weakness or num bness. Has chronic numbness of the bilateral hands. No falls or injuries. Presents for further evaluation at this time. - Related Data Home Medications Medication Instructions Recorded Confirmed amLODIPine BESYLATE [Norvasc] 10 mg PO QAM 04/19/14 04/12/24 Insulin Glargine (Lantus) [Lantus 90 unit SQ HS 07/20/19 04/12/24 Vial] INSULIN LISPRO (humaLOG) [humaLOG] 20 - 40 units SQ AC-TID 01/09/20 04/12/24 Atorvastatin [Lipitor] 40 mg PO HS 09/19/22 04/12/24 Omeprazole [PriLOSEC] 20 mg PO BID 11/21/22 04/12/24 Nitroglycerin Sl Tabs [Nitrostat] 0.4 mg SL Q5M PRN 06/18/23 04/12/24 Pregabalin [Lyrica] 150 mg PO BID 06/18/23 04/12/24 HYDROcodone/APAP 7.5-325MG [Winside 1 tab PO Q8H PRN 12/03/23 04/12/24 7.5-325] Aspirin 81 mg PO QAM 04/01/24 04/12/24 Ezetimibe [Zetia] 10 mg PO QAM 04/01/24 04/12/24 Metoprolol Tartrate [Lopressor] 12.5 mg PO BID 04/01/24 04/12/24 Tamsulosin [Flomax] 0.4 mg PO HS 04/01/24 04/12/24 Previous Rx's Medication Instructions Recorded Cyclobenzaprine [Flexeril] 10 mg PO TID PRN #60 tab 04/16/24 Naproxen [Naprosyn] 500 mg PO DAILY #14 tablet 04/16/24 Pregabalin [Lyrica] 150 mg PO BID #60 cap 04/16/24 Sennosides/Docusate Sodium [Senna 2 each PO DAILY PRN #30 tab 04/16/24 Plus 8.6-50 mg Tablet] cefaDROXiL [Duricef] 500 mg PO Q12HR #10 cap 04/16/24 oxyCODONE-APAP 10-325MG [Percocet 1 tab PO Q4HR PRN #40 tab 04/16/24 10-325 mg] diphenhydrAMINE HCL [Benadryl] 25 mg PO HS 15 Days #15 tab 04/17/24 predniSONE 5 mg PO DAILY 20 Days #30 tab 04/17/24 Allergies Allergy/AdvReac Type Severity Reaction Status Date / Time No Known Allergies Allergy Verified 04/21/24 21:29 Review of Systems ROS Statement: Those systems with pertinent positive or pertinent negative responses have been documented in the HPI. Review of Systems: CONST: Denies fever EYES: Denies blurry vision ENT: Denies nasal congestion C/V: Denies Chest pain RESP: Denies shortness of breath GI: Denies abdominal pain : Denies dysuria SKIN: Denies rash. MSK: Denies joint pain. NEURO: Denies headache ROS Other: All systems not noted in ROS Statement are negative. Past Medical History Past Medical History: Asthma, Coronary Artery Disease (CAD), Chest Pain / Angina, Diabetes Mellitus, GERD/Reflux, Hearing Disorder / Deafness, Hyperlipidemia, Hypertension Additional Past Medical History / Comment(s): IDDM. Hx chronic back pain, chronic pain syndrome. Neuropathy bilateral feet, RAMONA/uses hearing aids bilaterally. Rash to rt leg -irritation from socks and swelling to ankles. History of Any Multi-Drug Resistant Organisms: None Reported Past Surgical History: Heart Catheterization With Stent, Orthopedic Surgery Additional Past Surgical History / Comment(s): trigger 2nd digit left hand 10-20, trigger finger release rt hand,Cervical fusion, back lami/injections, neck sx, carpal tunnel surgery, colonoscopy/benign polypectomy. 3 stents placed 05/2021 and 04/2023. total of 5 heart caths. Past Anesthesia/Blood Transfusion Reactions: No Reported Reaction Additional Past Anesthesia/Blood Transfusion Reaction / Comment(s): no problems with prior blood transfusion. Date of Last Stent Placement:: May 2023 x3 stent total Past Psychological History: No Psychological Hx Reported Smoking Status: Never smoker Past Alcohol Use History: None Reported Past Drug Use History: None Reported - Past Family History Father Family Medical History: Myocardial Infarction ([place]) Additional Family Medical History / Comment(s): Passed at age 72. Mother Family Medical History: Myocardial Infarction ([place]) Additional Family Medical History / Comment(s): Passed at age 77. Brother(s) Family Medical History: Myocardial Infarction ([place]) Additional Family Medical History / Comment(s): 3 brothers passed from [place] in 50's. Sister(s) Family Medical History: Myocardial Infarction ([place]) Additional Family Medical History / Comment(s): sister 50s General Exam - General Exam Comments Initial Comments: General: Appears in no acute distress. HEAD: Normal with no signs of head trauma. EYES: PERRLA, EOMI, conjunctiva normal, no discharge. Pupils are 3 mm and equal bilaterally. ENT: Hearing grossly intact, normal oropharynx. RESPIRATORY: Clear breath sounds bilaterally. No wheezes, rales, or rhonchi. C/V: Regular rate and rhythm. S1 and S2 auscultated, no edema, peripheral pulses 2+ and intact throughout ABD: Abd is soft, nontender, nondistended EXT: Normal range of motion, no obvious deformity SKIN: Surgical wounds are clean and appear to be healing well. No evidence of surrounding erythema or infection. Patient does have localized allergic reaction at the site of the adhesive from the sterile draping used during the procedure. This is located on the patient's back. Patient's family states it is improved. NEURO: Alert and oriented x 4. Cranial nerves II-XII intact. No focal sensory or strength deficits. NIH is 0. GCS of 15. Limitations: no limitations Course Vital Signs 04/21/24 04/21/24 04/22/24 21:25 23:51 00:31 Temperature 97.8 F Pulse Rate 83 71 70 Respiratory 20 18 Rate Blood Pressure 132/73 152/84 148/76 O2 Sat by Pulse 98 96 Oximetry Medical Decision Making - Medical Decision Making Was pt. sent in by a medical professional or institution (, [place], ELECTRONEURODIAGNOSTIC TECHNOLOGIST, urgent care, hospital, or half-way...) When possible be specific @ -No Did you speak to anyone other than the patient for history (EMS, parent, family, police, friend...)? What history was obtained from this source @ -Patient's family member assist with patient's HPI Did you review nursing and triage notes (agree or disagree)? Why? @ -I reviewed and agree with nursing and triage notes Were old charts reviewed (outside hosp., previous admission, EMS record, old EKG, old radiological studies, urgent care reports/EKG's, half-way records)? Report findings @ -Old charts reviewed, including recent admission on April 13 for the spine surgery with Dr. Araujo showed the procedure and that patient was discharged home successfully on April 17, 2024. Differential Diagnosis (chest pain, altered mental status, abdominal pain women, abdominal pain men, vaginal bleeding, weakness, fever, dyspnea, syncope, headache, dizziness, GI bleed, back pain, seizure, CVA, palpatations, mental health, musculoskeletal)? @ -Differential Altered Mental Status: Hypoglycemia, DKA, hypercapnia, ETOH, overdose, CO poisoning, trauma, myxedema coma, HTN encephalopathy, infection, encephalitis, psychosis, intercranial hemorrhage, hepatic encephalopathy, meningitis, CVA, this is not meant to be an all-inclusive list EKG interpreted by me (3pts min.). @ -As above X-rays interpreted by me (1pt min.). @ -Chest x-ray reveals no obvious acute cardiopulmonary process. CT interpreted by me (1pt min.). @ -CT brain, C-spine, T-spine shows postoperative changes but no obvious acute process U/S interpreted by me (1pt. min.). @ -None done What testing was considered but not performed or refused? (CT, X-rays, U/S, labs)? Why? @ -None What meds were considered but not given or refused? Why? @ -None Did you discuss the management of the patient with other professionals (professionals i.e. , RAYMUNDO, ELECTRONEURODIAGNOSTIC TECHNOLOGIST, lab, RT, psych nurse, pediatric social worker, help desk specialist, teacher, transport corps officer, continuous pillowcase cutter)? Give summary @ -Discussed with admitting provider, Dr. Fountain who accepted the admission. Was smoking cessation discussed for >3mins.? @ -No Was critical care preformed (if so, how long)? @ -No Were there social determinants of health that impacted care today? How? (Homelessness, low income, unemployed, alcoholism, drug addiction, transportation, low edu. Level, literacy, decrease access to med. care, intermediate, rehab)? @ -No Was there de-escalation of care discussed even if they declined (Discuss DNR or withdrawal of care, Hospice)? DNR status @ -No What co-morbidities impacted this encounter? (DM, HTN, Smoking, COPD, CAD, Cancer, CVA, ARF, Chemo, Hep., AIDS, mental health diagnosis, sleep apnea, morbid obesity)? @ -Recent spine surgery Was patient admitted / discharged? Hospital course, mention meds given and route, prescriptions, significant lab abnormalities, going to OR and other pertinent info. @ -Presents with visual hallucinations for the last day and a half. Unknown if it is related to his newer pain medication, oxycodone or possibly related to recent spine surgery. He has no other acute complaints. Is only seeing ants marching on the james and on the floors in the corners of the rooms. This is never happened before. Has no other acute complaints. We will obtain an altered mental status workup as well as CT imaging of the spine and brain. Patient was in agreement this plan. Vital signs within acceptable limits. Patient's imaging returned negative for any obvious acute process. Labs returned remarkable for mild leukocytosis of 11.5. Hemoglobin is 10.6 which does appear to be his baseline. UDS positive for opiates and oxycodone as well as TCAs which is expected. Remainder the workup unremarkable. While waiting for urine, bladder scan was performed and patient had 1300 cc of urine in his bladder. Patient appears to have urinary retention. Kramer catheter was placed. Urinalysis returned unremarkable for infection. We discussed results with the patient as well as family. Patient will be admitted for the hallucinations. Consult placed to neurology as well as patient's surgery, Dr. Araujo. They were agreeable with this plan. We will avoid oxycodone at this time as this could be contributory to his current issue. I discussed the case with the admitting provider, Dr. Fountain who accepte d the admission. Urology consulted for the urinary retention. Undiagnosed new problem with uncertain prognosis? @ -No Drug Therapy requiring intensive monitoring for toxicity (Heparin, Nitro, Insuli n, Cardizem)? @ -No Were any procedures done? @ -No Diagnosis/symptom? @ -Weakness, hallucinations, urinary retention Acute, or Chronic, or Acute on Chronic? @ -Acute Uncomplicated (without systemic symptoms) or Complicated (systemic symptoms)? @ -Complicated Side effects of treatment? @ -None Exacerbation, Progression, or Severe Exacerbation] @ -No Poses a threat to life or bodily function? @ -Potentially, yes - Lab Data Result diagrams: 04/21/24 22:09 04/21/24 22:09 Lab Results 04/21/24 04/21/24 04/21/24 Range/Units 22:09 22:09 22:09 WBC 11.5 H (3.8-10.6) k/uL RBC 4.15 L (4.30-5.90) m/uL Hgb 10.6 L (13.0-17.5) gm/dL Hct 33.3 L (39.0-53.0) % MCV 80.2 (80.0-100.0) fL MCH 25.7 (25.0-35.0) pg MCHC 32.0 (31.0-37.0) g/dL RDW 15.4 (11.5-15.5) % Plt Count 360 (150-450) k/uL MPV 6.7 Neutrophils % 73 % Lymphocytes % 16 % Monocytes % 6 % Eosinophils % 3 % Basophils % 0 % Neutrophils # 8.4 H (1.3-7.7) k/uL Lymphocytes # 1.8 (1.0-4.8) k/uL Monocytes # 0.7 (0-1.0) k/uL Eosinophils # 0.4 (0-0.7) k/uL Basophils # 0.0 (0-0.2) k/uL Hypochromasia Slight PT 11.2 (10.0-12.5) sec INR 1.0 (<1.2) APTT 22.4 (22.0-30.0) sec VBG pH (7.31-7.41) VBG pCO2 (37-51) mmHg VBG HCO3 (24-28) mmol/L Sodium 135 L (137-145) mmol/L Potassium 4.3 (3.5-5.1) mmol/L Chloride 98 (98-107) mmol/L Carbon Dioxide 27 (22-30) mmol/L Anion Gap 10 mmol/L BUN 24 H (9-20) mg/dL Creatinine 1.11 (0.66-1.25) mg/dL Est GFR (CKD-EPI)AfAm 72 (>60 ml/min/1.73 sqM) Est GFR (CKD-EPI)NonAf 63 (>60 ml/min/1.73 sqM) Glucose 137 H (74-99) mg/dL Calcium 9.0 (8.4-10.2) mg/dL Total Bilirubin 0.7 (0.2-1.3) mg/dL AST 20 (17-59) U/L ALT 21 (4-49) U/L Alkaline Phosphatase 111 (38-126) U/L Ammonia (<30) umol/L NT-Pro-B Natriuret Pep 511 pg/mL Total Protein 6.8 (6.3-8.2) g/dL Albumin 4.2 (3.5-5.0) g/dL Urine Color Urine Appearance (Clear) Urine pH (5.0-8.0) Ur Specific [place] (1.001-1.035) Urine Protein (Negative) Urine Glucose (UA) (Negative) Urine Ketones (Negative) Urine Blood (Negative) Urine Nitrite (Negative) Urine Bilirubin (Negative) Urine Urobilinogen (<2.0) mg/dL Ur Leukocyte Esterase (Negative) Urine Opiates Screen (NotDetected) Ur Oxycodone Screen (NotDetected) Urine Methadone Screen (NotDetected) Ur Barbiturates Screen (NotDetected) U Tricyclic Antidepress (NotDetected) Ur Phencyclidine Scrn (NotDetected) Ur Amphetamines Screen (NotDetected) U Methamphetamines Scrn (NotDetected) U Benzodiazepines Scrn (NotDetected) Urine Cocaine Screen (NotDetected) U Marijuana (THC) Screen (NotDetected) Serum Alcohol <10 mg/dL Influenza Type A (PCR) (Not Detectd) Influenza Type B (PCR) (Not Detectd) RSV (PCR) (Not Detectd) SARS-CoV-2 (PCR) (Not Detectd) 04/21/24 04/21/24 04/21/24 Range/Units 22:09 22:09 22:09 WBC (3.8-10.6) k/uL RBC (4.30-5.90) m/uL Hgb (13.0-17.5) gm/dL Hct (39.0-53.0) % MCV (80.0-100.0) fL MCH (25.0-35.0) pg MCHC (31.0-37.0) g/dL RDW (11.5-15.5) % Plt Count (150-450) k/uL MPV Neutrophils % % Lymphocytes % % Monocytes % % Eosinophils % % Basophils % % Neutrophils # (1.3-7.7) k/uL Lymphocytes # (1.0-4.8) k/uL Monocytes # (0-1.0) k/uL Eosinophils # (0-0.7) k/uL Basophils # (0-0.2) k/uL Hypochromasia PT (10.0-12.5) sec INR (<1.2) APTT (22.0-30.0) sec VBG pH 7.39 (7.31-7.41) VBG pCO2 46 (37-51) mmHg VBG HCO3 27 (24-28) mmol/L Sodium (137-145) mmol/L Potassium (3.5-5.1) mmol/L Chloride (98-107) mmol/L Carbon Dioxide (22-30) mmol/L Anion Gap mmol/L BUN (9-20) mg/dL Creatinine (0.66-1.25) mg/dL Est GFR (CKD-EPI)AfAm (>60 ml/min/1.73 sqM) Est GFR (CKD-EPI)NonAf (>60 ml/min/1.73 sqM) Glucose (74-99) mg/dL Calcium (8.4-10.2) mg/dL Total Bilirubin (0.2-1.3) mg/dL AST (17-59) U/L ALT (4-49) U/L Alkaline Phosphatase (38-126) U/L Ammonia <9 (<30) umol/L NT-Pro-B Natriuret Pep pg/mL Total Protein (6.3-8.2) g/dL Albumin (3.5-5.0) g/dL Urine Color Urine Appearance (Clear) Urine pH (5.0-8.0) Ur Specific [place] (1.001-1.035) Urine Protein (Negative) Urine Glucose (UA) (Negative) Urine Ketones (Negative) Urine Blood (Negative) Urine Nitrite (Negative) Urine Bilirubin (Negative) Urine Urobilinogen (<2.0) mg/dL Ur Leukocyte Esterase (Negative) Urine Opiates Screen (NotDetected) Ur Oxycodone Screen (NotDetected) Urine Methadone Screen (NotDetected) Ur Barbiturates Screen (NotDetected) U Tricyclic Antidepress (NotDetected) Ur Phencyclidine Scrn (NotDetected) Ur Amphetamines Screen (NotDetected) U Methamphetamines Scrn (NotDetected) U Benzodiazepines Scrn (NotDetected) Urine Cocaine Screen (NotDetected) U Marijuana (THC) Screen (NotDetected) Serum Alcohol mg/dL Influenza Type A (PCR) Not Detected (Not Detectd) Influenza Type B (PCR) Not Detected (Not Detectd) RSV (PCR) Not Detected (Not Detectd) SARS-CoV-2 (PCR) Not Detected (Not Detectd) 04/21/24 Range/Units 23:40 WBC (3.8-10.6) k/uL RBC (4.30-5.90) m/uL Hgb (13.0-17.5) gm/dL Hct (39.0-53.0) % MCV (80.0-100.0) fL MCH (25.0-35.0) pg MCHC (31.0-37.0) g/dL RDW (11.5-15.5) % Plt Count (150-450) k/uL MPV Neutrophils % % Lymphocytes % % Monocytes % % Eosinophils % % Basophils % % Neutrophils # (1.3-7.7) k/uL Lymphocytes # (1.0-4.8) k/uL Monocytes # (0-1.0) k/uL Eosinophils # (0-0.7) k/uL Basophils # (0-0.2) k/uL Hypochromasia PT (10.0-12.5) sec INR (<1.2) APTT (22.0-30.0) sec VBG pH (7.31-7.41) VBG pCO2 (37-51) mmHg VBG HCO3 (24-28) mmol/L Sodium (137-145) mmol/L Potassium (3.5-5.1) mmol/L Chloride (98-107) mmol/L Carbon Dioxide (22-30) mmol/L Anion Gap mmol/L BUN (9-20) mg/dL Creatinine (0.66-1.25) mg/dL Est GFR (CKD-EPI)AfAm (>60 ml/min/1.73 sqM) Est GFR (CKD-EPI)NonAf (>60 ml/min/1.73 sqM) Glucose (74-99) mg/dL Calcium (8.4-10.2) mg/dL Total Bilirubin (0.2-1.3) mg/dL AST (17-59) U/L ALT (4-49) U/L Alkaline Phosphatase (38-126) U/L Ammonia (<30) umol/L NT-Pro-B Natriuret Pep pg/mL Total Protein (6.3-8.2) g/dL Albumin (3.5-5.0) g/dL Urine Color Colorless Urine Appearance Clear (Clear) Urine pH 6.5 (5.0-8.0) Ur Specific [place] 1.010 (1.001-1.035) Urine Protein Negative (Negative) Urine Glucose (UA) 2+ H (Negative) Urine Ketones Negative (Negative) Urine Blood Negative (Negative) Urine Nitrite Negative (Negative) Urine Bilirubin Negative (Negative) Urine Urobilinogen <2.0 (<2.0) mg/dL Ur Leukocyte Esterase Negative (Negative) Urine Opiates Screen Detected H (NotDetected) Ur Oxycodone Screen Detected H (NotDetected) Urine Methadone Screen Not Detected (NotDetected) Ur Barbiturates Screen Not Detected (NotDetected) U Tricyclic Antidepress Detected H (NotDetected) Ur Phencyclidine Scrn Not Detected (NotDetected) Ur Amphetamines Screen Not Detected (NotDetected) U Methamphetamines Scrn Not Detected (NotDetected) U Benzodiazepines Scrn Not Detected (NotDetected) Urine Cocaine Screen Not Detected (NotDetected) U Marijuana (THC) Screen Not Detected (NotDetected) Serum Alcohol mg/dL Influenza Type A (PCR) (Not Detectd) Influenza Type B (PCR) (Not Detectd) RSV (PCR) (Not Detectd) SARS-CoV-2 (PCR) (Not Detectd) - EKG Data -: EKG Interpreted by Me EKG Comments: 12-lead Electrocardiogram Interpretation Note EKG was reviewed and interpreted by myself. 12-lead ECG performed at 2253 is interpreted by me as revealing normal sinus rhythm at a rate of 70 beats per minute. Hammond is normal. MT interval is 191 ms, QRS duration is 86 ms, QTc is 4 to 32 ms.. There were no ST or T wave abnormalities to suggest myocardial ischemia or injury. R wave progression across the precordium was satisfactory. By my interpretation this EKG is non-diagnostic for acute ischemia. Disposition Clinical Impression: Weakness, Visual hallucinations, Urinary retention Disposition: ADMITTED IP TO THIS HOSP Condition: Stable Referrals: Pete Fountain MD [Primary Care Provider] - 1-2 days Time of Disposition: 02:21
[2024-04-21 22:55] LABS: VBG PH 7.39 (7.31-7.41)
[2024-04-21 22:57] LABS: Basophils % (A) 0 %; Eosinophils # (A) 0.4 k/uL (0-0.7); Eosinophils % (A) 3 %; HCT 33.3 % (39.0-53.0); HGB 10.6 gm/dL (13.0-17.5); Hypochromasia Slight; Lymphocytes # (A) 1.8 k/uL (1.0-4.8); Lymphocytes % (A) 16 %; MCH 25.7 pg (25.0-35.0); MCV 80.2 fL (80.0-100.0); Mean Platelet Volume 6.7; Monocytes # (A) 0.7 k/uL (0-1.0); Monocytes % (A) 6 %; Neutrophils # (A) 8.4 k/uL (1.3-7.7); Neutrophils % (A) 73 %; Platelet Count 360 k/uL (150-450); RBC 4.15 m/uL (4.30-5.90); RDW 15.4 % (11.5-15.5); WBC 11.5 k/uL (3.8-10.6)
[2024-04-21 23:07] LABS: ALT 21 U/L (4-49); AST 20 U/L (17-59); African American GFR (CKD) 72 (>60 ml/min/1.73 sqM); Albumin 4.2 g/dL (3.5-5.0); Alcohol <10 mg/dL; Alkaline Phosphatase 111 U/L (38-126); Anion Gap 10 mmol/L; Blood Urea Nitrogen 24 mg/dL (9-20); Carbon Dioxide 27 mmol/L (22-30); Chloride 98 mmol/L (98-107); Glucose 137 mg/dL (74-99); Non-African American GFR(CKD) 63 (>60 ml/min/1.73 sqM); Potassium 4.3 mmol/L (3.5-5.1); Sodium 135 mmol/L (137-145); Total Bilirubin 0.7 mg/dL (0.2-1.3); Total Protein 6.8 g/dL (6.3-8.2)
[2024-04-21 23:13] LABS: Partial Thromboplastin Time 22.4 sec (22.0-30.0); Prothrombin Time 11.2 sec (10.0-12.5)
[2024-04-21 23:15] LABS: NT-Pro-B-Type Natriuretic Pept 511 pg/mL
[2024-04-21] MEDS: HYDROcodone/APAP 5-325MG 1 EACH TAB PO STA (23:24)
[2024-04-21 23:33] LABS: Influenza A Not Detected (Not Detectd); Influenza B Not Detected (Not Detectd); RSV Not Detected (Not Detectd)
[2024-04-22 00:20] LABS: Appearance,Urine Clear (Clear); Bilirubin,Urine Negative (Negative); Blood,Urine Negative (Negative); Color,Urine Colorless; Glucose,Urine (UA) 2+ (Negative); Ketones,Urine Negative (Negative); Leukocyte Esterase,Urine Negative (Negative); Nitrite,Urine Negative (Negative); PH, Urine 6.5 (5.0-8.0); Protein,Urine Negative (Negative); Urobilinogen,Urine <2.0 mg/dL (<2.0)
--- NOTE | 2024-04-22 00:21 | XR ---
EXAM: XR Chest, 1 View CLINICAL HISTORY: ITS.REASON XR Reason: altered mental status TECHNIQUE: Frontal view of the chest. COMPARISON: No relevant prior studies available. FINDINGS: Lungs: Unremarkable. No consolidation. Pleural space: Unremarkable. No pneumothorax. Heart: Cardiomegaly. Mediastinum: Unremarkable. Bones/joints: Recent cervical fusion hardware. Lower thoracolumbar fusion hardware. IMPRESSION: No acute findings in the chest.
[2024-04-22 00:51] LABS: Amphetamine Screen,Urine Not Detected (NotDetected); Barbiturate Screen,Urine Not Detected (NotDetected); Benzodiazepines Screen,Urine Not Detected (NotDetected); Cocaine Screen,Urine Not Detected (NotDetected); Methadone Screen, Urine Not Detected (NotDetected); Opiate Screen,Urine Detected (NotDetected); Oxycodone Screen, Urine Detected (NotDetected); Phencyclidine Screen,Urine Not Detected (NotDetected); Tricyclic Antidepressant,Urine Detected (NotDetected); Urn Cannabinoid Scrn Not Detected (NotDetected)
--- NOTE | 2024-04-22 01:53 | CT ---
EXAM: CT Thoracic Spine Without Intravenous Contrast CLINICAL HISTORY: ITS.REASON CT Reason: recent surgery, hallucinating TECHNIQUE: Axial computed tomography images of the thoracic spine without intravenous contrast. CTDI is 16 mGy and DLP is 522 mGy-cm. This CT exam was performed using one or more of the following dose reduction techniques: automated exposure control, adjustment of the mA and/or kV according to patient size, and/or use of iterative reconstruction technique. COMPARISON: No relevant prior studies available. FINDINGS: Extensive postop changes. There is lucency around the screws at T10 bilaterally and on the left at T11 Vertebrae: No acute fracture. No sagittal subluxation. Discs/spinal canal/neural foramina: No spinal canal stenosis. Soft tissues: Unremarkable. IMPRESSION: No acute findings. There is lucency around the screws at T10 bilaterally and on the left at T11
--- NOTE | 2024-04-22 02:06 | CT ---
EXAM: CT Head Without Intravenous Contrast CLINICAL HISTORY: ITS.REASON CT Reason: Altered mental status TECHNIQUE: Axial computed tomography images of the head/brain without intravenous contrast. CTDI is 45.2 mGy and DLP is 1126 mGy-cm. This CT exam was performed using one or more of the following dose reduction techniques: automated exposure control, adjustment of the mA and/or kV according to patient size, and/or use of iterative reconstruction technique. COMPARISON: No relevant prior studies available. FINDINGS: Brain: No hemorrhage or mass effect. Ventricles: No hydrocephalus. Bones/joints: Unremarkable. Soft tissues: Unremarkable. Sinuses: No air fluid level. Mastoid air cells: Clear. IMPRESSION: No acute hemorrhage, hydrocephalus, or mass effect. EXAM: CT Cervical Spine Without Intravenous Contrast CLINICAL HISTORY: ITS.REASON CT Reason: Altered mental status TECHNIQUE: Axial computed tomography images of the cervical spine without intravenous contrast. CTDI is 16.4 mGy and DLP is 552.3 mGy-cm. This CT exam was performed using one or more of the following dose reduction techniques: automated exposure control, adjustment of the mA and/or kV according to patient size, and/or use of iterative reconstruction technique. COMPARISON: No relevant prior studies available. FINDINGS: Extensive postop changes. Expected soft tissue changes. Overall evaluation limited due to streak artifact IMPRESSION: Extensive postop changes. Expected soft tissue changes. Overall evaluation limited due to streak artifact
[2024-04-22] MEDS ORDERED: ONDANSETRON 4 MG/2 ML VIAL IVP PRN (02:21)
[2024-04-22] MEDS ORDERED: NALOXONE 0.4 MG/ML 1 ML VIAL IV PRN (02:21)
[2024-04-22] MEDS: HYDROcodone/APAP 7.5-325MG 1 EACH TAB PO ONE ×2 (03:21→03:25)
[2024-04-22 06:33] LABS: Glucose,Whole Blood 113 mg/dL (70-110)
[2024-04-22] MEDS ORDERED: DEXTROSE 50% SYRINGE 50 ML IVP PRN ×2 (09:49)
--- NOTE | 2024-04-22 09:50 | P.HPIM ---
History of Present Illness H&P Date: 04/22/24 Primitivo Benjamin is an 79-year-old male patient who presents to the ER with complaints of hallucinations. Patient was recently and admitted for cervical fusion on April 13, 2024 and discharged home on April 17, 2024 apparently. Patient was recovering well but started to have increased hallucinations over the past few days. Patient has a past medical history of asthma, CAD, chest pain, GERD, hard of hearing, hyperlipidemia, hypertension, previous heart cath with stents. Chest x-ray completed showing no acute findings. Thoracic spine CT showing no acute findings there is lucency around the screws of T10 bilaterally and on the left at T11. Head and cervical spine CT completed showing no acute hemorrhage hydrocephalus or mass effect extensive postoperative changes. Lab work completed showing WBC of 11.5, hemoglobin 10.6 ABGs within normal limits, creatinine 1.11 bun 24, ammonia less than 9. UA negative influenza RSV and COVID-19 negative. UA positive for opioids, oxycodone and tricyclic antidepressants. At this time patient is resting comfortably in bed patient is very sleepy. Current vital signs temp 97.9, heart rate 60, respiratory rate 18, blood pressure 154/71 with a pulse ox of 97% on room air. Patient denies chest pain or shortness of breath. Patient denies nausea vomiting or diarrhea. Patient denies any urinary burning or frequency. At this time patient will be admitted neurology urology and orthopedic services consulted Review of Systems Please refer to HPI otherwise unremarkable Past Medical History Past Medical History: Asthma, Coronary Artery Disease (CAD), Chest Pain / Angina, Diabetes Mellitus, GERD/Reflux, Hearing Disorder / Deafness, Hyperlipidemia, Hypertension Additional Past Medical History / Comment(s): IDDM. Hx chronic back pain, chronic pain syndrome. Neuropathy bilateral feet, [place]/uses hearing aids bilaterally. Rash to rt leg -irritation from socks and swelling to ankles. History of Any Multi-Drug Resistant Organisms: None Reported Past Surgical History: Heart Catheterization With Stent, Orthopedic Surgery Additional Past Surgical History / Comment(s): trigger 2nd digit left hand 12-13-19, trigger finger release rt hand,Cervical fusion, back lami/injections, neck sx, carpal tunnel surgery, colonoscopy/benign polypectomy. 3 stents placed 05/2021 and 04/2023. total of 5 heart caths. Past Anesthesia/Blood Transfusion Reactions: No Reported Reaction Additional Past Anesthesia/Blood Transfusion Reaction / Comment(s): no problems with prior blood transfusion. Date of Last Stent Placement:: May 2023 x3 stent total Past Psychological History: No Psychological Hx Reported Additional Psychological History / Comment(s): . Smoking Status: Never smoker Past Alcohol Use History: None Reported Past Drug Use History: None Reported - Past Family History Father Family Medical History: Myocardial Infarction ([place]) Additional Family Medical History / Comment(s): Passed at age 72. Mother Family Medical History: Myocardial Infarction ([place]) Additional Family Medical History / Comment(s): Passed at age 77. Brother(s) Family Medical History: Myocardial Infarction ([place]) Additional Family Medical History / Comment(s): 3 brothers passed from [place] in 50's. Sister(s) Family Medical History: Myocardial Infarction ([place]) Additional Family Medical History / Comment(s): sister 50s Medications and Allergies Home Medications Medication Instructions Recorded Confirmed Type amLODIPine BESYLATE [Norvasc] 10 mg PO QAM 04/19/14 04/12/24 History Insulin Glargine (Lantus) [Lantus 90 unit SQ HS 07/20/19 04/12/24 History Vial] INSULIN LISPRO (humaLOG) [humaLOG] 20 - 40 units SQ AC-TID 01/09/20 04/12/24 History Atorvastatin [Lipitor] 40 mg PO HS 09/19/22 04/12/24 History Omeprazole [PriLOSEC] 20 mg PO BID 11/21/22 04/12/24 History Nitroglycerin Sl Tabs [Nitrostat] 0.4 mg SL Q5M PRN 06/18/23 04/12/24 History Pregabalin [Lyrica] 150 mg PO BID 06/18/23 04/12/24 History HYDROcodone/APAP 7.5-325MG [[place] 1 tab PO Q8H PRN 12/03/23 04/12/24 History 7.5-325] Aspirin 81 mg PO QAM 04/01/24 04/12/24 History Ezetimibe [Zetia] 10 mg PO QAM 04/01/24 04/12/24 History Metoprolol Tartrate [Lopressor] 12.5 mg PO BID 04/01/24 04/12/24 History Tamsulosin [Flomax] 0.4 mg PO HS 04/01/24 04/12/24 History Cyclobenzaprine [Flexeril] 10 mg PO TID PRN #60 tab 04/16/24 Rx Naproxen [Naprosyn] 500 mg PO DAILY #14 tablet 04/16/24 Rx Pregabalin [Lyrica] 150 mg PO BID #60 cap 04/16/24 Rx Sennosides/Docusate Sodium [[place]enna 2 each PO DAILY PRN #30 tab 04/16/24 Rx Plus 8.6-50 mg Tablet] cefaDROXiL [Duricef] 500 mg PO Q12HR #10 cap 04/16/24 Rx oxyCODONE-APAP 10-325MG [Percocet 1 tab PO Q4HR PRN #40 tab 04/16/24 Rx 10-325 mg] diphenhydrAMINE HCL [Benadryl] 25 mg PO HS 15 Days #15 tab 04/17/24 Rx predniSONE 5 mg PO DAILY 20 Days #30 tab 04/17/24 Rx Allergies Allergy/AdvReac Type Severity Reaction Status Date / Time No Known Allergies Allergy Verified 04/21/24 21:29 Physical Exam Vitals: Vital Signs Temp Pulse Pulse Resp BP BP Pulse Ox 04/22/24 08:00 58 L 18 04/22/24 07:39 97.9 F 58 L 18 154/71 97 04/22/24 04:23 97.7 F 60 16 144/75 94 L 04/22/24 03:00 64 159/82 04/22/24 02:00 63 169/91 04/22/24 00:31 70 148/76 04/21/24 23:51 71 18 152/84 96 04/21/24 21:25 97.8 F 83 20 132/73 98 Intake and Output 04/21/24 04/22/24 04/22/24 22:59 06:59 14:59 Intake Total 0 Output Total 1300 Balance -1300 Intake: Oral 0 Output: Urine 1300 Other: # Voids 0 Weight 90.718 kg 90.718 kg Head normocephalic Neck supple Lungs clear to auscultation bilaterally no wheezing or crackles Heart regular rate and rhythm S1-S2, no rub or gallop Abdomen is soft nontender nondistended positive bowel sounds no hepatosplenomegaly Extremities no edema Neuro alert and orientated to 3. Sleepy Results CBC & Chem 7: 04/21/24 22:09 04/21/24 22:09 Labs: Abnormal Lab Results - Last 24 Hours (Table) 04/21/24 04/21/24 04/21/24 Range/Units 22:09 22:09 23:40 WBC 11.5 H (3.8-10.6) k/uL RBC 4.15 L (4.30-5.90) m/uL Hgb 10.6 L (13.0-17.5) gm/dL Hct 33.3 L (39.0-53.0) % Neutrophils # 8.4 H (1.3-7.7) k/uL Sodium 135 L (137-145) mmol/L BUN 24 H (9-20) mg/dL Glucose 137 H (74-99) mg/dL POC Glucose (mg/dL) (70-110) mg/dL Urine Glucose (UA) 2+ H (Negative) Urine Opiates Screen Detected H (NotDetected) Ur Oxycodone Screen Detected H (NotDetected) U Tricyclic Antidepress Detected H (NotDetected) 04/22/24 Range/Units 06:31 WBC (3.8-10.6) k/uL RBC (4.30-5.90) m/uL Hgb (13.0-17.5) gm/dL Hct (39.0-53.0) % Neutrophils # (1.3-7.7) k/uL Sodium (137-145) mmol/L BUN (9-20) mg/dL Glucose (74-99) mg/dL POC Glucose (mg/dL) 113 H (70-110) mg/dL Urine Glucose (UA) (Negative) Urine Opiates Screen (NotDetected) Ur Oxycodone Screen (NotDetected) U Tricyclic Antidepress (NotDetected) Thrombosis Risk Factor Assmnt - Choose All That Apply Any of the Below Risk Factors Present?: No Other Risk Factors: Yes Each Risk Factor Represents 3 Points: Age 75 years or older Thrombosis Risk Factor Assessment Total Risk Factor Score: 3 Thrombosis Risk Factor Assessment Level: Moderate Risk Assessment and Plan Assessment: 1. Generalized weakness and hallucinations 2. Status post cervical spine surgery on 04/13/2024 3. Urinary retention 4. History of insulin-dependent diabetes mellitus 5. History of essential hypertension 6. History of hyperlipidemia 7. History of coronary artery disease 8. History of GERD DVT prophylaxis SCDs due to recent spinal surgery. GI prophylaxis Protonix Kramer catheter placed for urinary retention urology services consulted Neurology services consulted Orthopedic services consulted Repeat labs ordered Time with Patient: Greater than 30 (Greater than 60% of the total time spent in counseling and coordination of care)
[2024-04-22 11:36] LABS: Glucose,Whole Blood 132 mg/dL (70-110)
[2024-04-22] MEDS: INSULIN ASPART (NovoLOG) 100 UNIT/ML VIAL SQ SCH (12:13)
--- NOTE | 2024-04-22 14:13 | P.CNOR ---
History of Present Illness - [facility] Consult date: 04/22/24 Requesting physician: Maninder Guillen Consult reason: other (recent C/T spine surgery) History of present illness: Patient is an 79-year-old male who presents to the ER last night due to complaints of hallucinations. On 04/13/2024 patient did have spine surgery in the form of C3-C7 ACDF and C2-T2 posterior cervical decompression and fusion. Patient was discharged home from the hospital on 04/17/2024. Orthopedics was consulted due to recent surgery. was present during encounter and gave most of the patient's history. mentions that patient had been taking oxycodone at home and believes that this has been leading to some mental fogginess and hallucinations. Patient denies any other symptoms. Denies any fevers or chills. He says he has no issues with the incisions. mention she has been changing dressings daily. Patient's did mention he had some swelling over the anterior cervical incision but this has resolved over the past couple days. Patient denies any current neck pain. He says he has been up walking under his own power. Patient's mentions they have just been taking [place] since stopping the oxycodone. Patient's mentions he has been having some urinary issues and has only been able to urinate a little bit of the time and has been retaining a lot of urine. Patient's also mentions patient has not had a bowel movement in about a week. Patient mentions he does not have any abdominal pain or distention. Patient denies any other orthopedic complaints at this time in regards to his surgery on the neck. Past Medical History Past Medical History: Asthma, Coronary Artery Disease (CAD), Chest Pain / Angina, Diabetes Mellitus, GERD/Reflux, Hearing Disorder / Deafness, Hyperlipi demia, Hypertension Additional Past Medical History / Comment(s): IDDM. Hx chronic back pain, chronic pain syndrome. Neuropathy bilateral feet, [id number]/uses hearing aids bilatera lly. Rash to rt leg -irritation from socks and swelling to ankles. History of Any Multi-Drug Resistant Organisms: None Reported Past Surgical History: Heart Catheterization With Stent, Orthopedic Surgery Additional Past Surgical History / Comment(s): trigger 2nd digit left hand 12-13-19, trigger finger release rt hand,Cervical fusion, back lami/injections, neck sx, carpal tunnel surgery, colonoscopy/benign polypectomy. 3 stents placed 05/2021 and 04/2023. total of 5 heart caths. Past Anesthesia/Blood Transfusion Reactions: No Reported Reaction Additional Past Anesthesia/Blood Transfusion Reaction / Comm: no problems with prior blood transfusion. Date of Last Stent Placement:: May 2023 x3 stent total Past Psychological History: No Psychological Hx Reported Smoking Status: Never smoker Past Alcohol Use History: None Reported Past Drug Use History: None Reported - Past Family History Father Family Medical History: Myocardial Infarction ([place]) Additional Family Medical History / Comment(s): Passed at age 72. Mother Family Medical History: Myocardial Infarction ([place]) Additional Family Medical History / Comment(s): Passed at age 77. Brother(s) Family Medical History: Myocardial Infarction ([place]) Additional Family Medical History / Comment(s): 3 brothers passed from [place] in 50's. Sister(s) Family Medical History: Myocardial Infarction ([place]) Additional Family Medical History / Comment(s): sister 50s Medications and Allergies Home Medications Medication Instructions Recorded Confirmed Type amLODIPine BESYLATE [Norvasc] 10 mg PO QAM 04/19/14 04/22/24 History Insulin Glargine (Lantus) [Lantus 90 unit SQ HS 07/20/19 04/22/24 History Vial] INSULIN LISPRO (humaLOG) [humaLOG] 20 - 40 units SQ AC-TID 01/09/20 04/22/24 History Atorvastatin [Lipitor] 40 mg PO HS 09/19/22 04/22/24 History Omeprazole [PriLOSEC] 20 mg PO BID 11/21/22 04/22/24 History Nitroglycerin Sl Tabs [Nitrostat] 0.4 mg SL Q5M PRN 06/18/23 04/22/24 History Pregabalin [Lyrica] 150 mg PO BID 06/18/23 04/22/24 History Aspirin 81 mg PO QAM 04/01/24 04/22/24 History Ezetimibe [Zetia] 10 mg PO QAM 04/01/24 04/22/24 History Tamsulosin [Flomax] 0.4 mg PO HS 04/01/24 04/22/24 History Cyclobenzaprine [Flexeril] 10 mg PO TID PRN #60 tab 04/16/24 04/22/24 Rx Naproxen [Naprosyn] 500 mg PO DAILY #14 tablet 04/16/24 04/22/24 Rx cefaDROXiL [Duricef] 500 mg PO Q12HR #10 cap 04/16/24 04/22/24 Rx oxyCODONE-APAP 10-325MG [Percocet 1 tab PO Q4HR PRN #40 tab 04/16/24 04/22/24 Rx 10-325 mg] Isosorbide Mononitrate ER [Imdur] 60 mg PO DAILY 04/22/24 04/22/24 History Metoprolol Tartrate [Lopressor] 12.5 mg PO BID 04/22/24 04/22/24 History Sennosides/Docusate Sodium [Senna 2 tab PO DAILY PRN 04/22/24 04/22/24 History Plus 8.6-50 mg Tablet] Valsartan [Diovan] 40 mg PO DAILY 04/22/24 04/22/24 History diphenhydrAMINE HCL [Benadryl] 25 mg PO BID 04/22/24 04/22/24 History predniSONE See Taper PO DAILY 04/22/24 04/22/24 History Allergies Allergy/AdvReac Type Severity Reaction Status Date / Time No Known Allergies Allergy Verified 04/22/24 09:45 Physical Examination Hard c-collar in place and dressings in place over anterior and posterior cervical spine. Incisions appear to be healing well are clean dry and intact. [place] overlying the posterior cervical spine. Some minimal swelling near incisions. Sensation is equal, symmetric, bilateral intact throughout extremities on exam. There is some generalized tenderness to palpation over the incisions. Patient does have some limited limited range of motion in the bilateral shoulders due to some referred pain and stiffness. Patient does have full range of motion throughout bilateral elbows and wrist on exam. 4/5 in all major motor groups in bilateral upper and lower extremities. Radial pulse intact, 2+ bilaterally. Cap refill under 3 seconds in digits of upper extremities. Negative [place] bilaterally. Negative clonus bilaterally. Results - Labs Labs: Abnormal Lab Results - Last 24 Hours (Table) 04/21/24 04/21/24 04/21/24 Range/Units 22:09 22:09 23:40 WBC 11.5 H (3.8-10.6) k/uL RBC 4.15 L (4.30-5.90) m/uL Hgb 10.6 L (13.0-17.5) gm/dL Hct 33.3 L (39.0-53.0) % Neutrophils # 8.4 H (1.3-7.7) k/uL Sodium 135 L (137-145) mmol/L BUN 24 H (9-20) mg/dL Glucose 137 H (74-99) mg/dL POC Glucose (mg/dL) (70-110) mg/dL Urine Glucose (UA) 2+ H (Negative) Urine Opiates Screen Detected H (NotDetected) Ur Oxycodone Screen Detected H (NotDetected) U Tricyclic Antidepress Detected H (NotDetected) 04/22/24 04/22/24 Range/Units 06:31 11:34 WBC (3.8-10.6) k/uL RBC (4.30-5.90) m/uL Hgb (13.0-17.5) gm/dL Hct (39.0-53.0) % Neutrophils # (1.3-7.7) k/uL Sodium (137-145) mmol/L BUN (9-20) mg/dL Glucose (74-99) mg/dL POC Glucose (mg/dL) 113 H 132 H (70-110) mg/dL Urine Glucose (UA) (Negative) Urine Opiates Screen (NotDetected) Ur Oxycodone Screen (NotDetected) U Tricyclic Antidepress (NotDetected) H & H 04/21/24 Range/Units 22:09 Hgb 10.6 L (13.0-17.5) gm/dL Hct 33.3 L (39.0-53.0) % Coagulation 04/21/24 Range/Units 22:09 INR 1.0 (<1.2) Result Diagrams: 04/21/24 22:09 04/21/24 22:09 Assessment and Plan Assessment: 1. 1 week s/p C3-C7 ACDF and C2-T2 posterior cervical decompression and fusion Plan: 1. 1 week s/p C3-C7 ACDF and C2-T2 posterior cervical decompression and fusion - surgery performed on 04/13/2024 for C3-C7 ACDF and C2-T2 posterior cervical decompression and fusion. Patient stable at bedside this morning. Pain medication as needed. PT/OT recommendations. Weightbearing as tolerated with walker and assistance as needed. Dressings appear to be clean, intact. Maintain dressings clean and intact at this time. Pain medications as needed. Maintain hard cervical collar on at all times. Patient is stable from orthopedic standpoint. Orthopedics will be available as needed to see patient. 2. Appreciate medical neurology and urology management 3. Pain management -[place] 4. DVT prophylaxis -aspirin 5. GI prophylaxis -Protonix; senna; miralax 6. PT/OT -maintain hard cervical collar on at all times. Weightbearing as to lerated with walker as needed and assistance as needed 7. Encourage incentive spirometer use 8. Appreciate consult Time with Patient: Less than 30
--- NOTE | 2024-04-22 15:53 | P.GSCN ---
History of Present Illness Consult date: 04/22/24 Reason for Consult: Urinary retention Requesting physician: Pete Fountain History of present illness: The patient is an 79-year-old white male who underwent cervical spine laminectomy and fusion on April 13, 2024. He has a long history of BPH, for which he underwent a TURP in 2004. He is being followed by Dr. Forman annually and has been verified to be emptying his bladder. He continues to take tamsulosin. He has noted a diminished urinary stream and a feeling of incomplete bladder emptying. He presented to the ER yesterday reporting hallucinations. Bladder scan in the ER showed a bladder volume of 1300 cc, and a Kramer catheter was placed. Review of Systems - Cardiovascular Reports high blood pressure - Genitourinary Reports as per HPI Past Medical History Past Medical History: Asthma, Coronary Artery Disease (CAD), Chest Pain / Angina, Diabetes Mellitus, GERD/Reflux, Hearing Disorder / Deafness, Hyperlipidemia, Hypertension Additional Past Medical History / Comment(s): IDDM. Hx chronic back pain, chronic pain syndrome. Neuropathy bilateral feet, [place]/uses hearing aids bilaterally. Rash to rt leg -irritation from socks and swelling to ankles. History of Any Multi-Drug Resistant Organisms: None Reported Past Surgical History: Heart Catheterization With Stent, Orthopedic Surgery Additional Past Surgical History / Comment(s): trigger 2nd digit left hand 12-13-19, trigger finger release rt hand,Cervical fusion, back lami/injections, neck sx, carpal tunnel surgery, colonoscopy/benign polypectomy. 3 stents placed 05/2021 and 04/2023. total of 5 heart caths. Past Anesthesia/Blood Transfusion Reactions: No Reported Reaction Additional Past Anesthesia/Blood Transfusion Reaction / Comm: no problems with prior blood transfusion. Date of Last Stent Placement:: May 2023 x3 stent total Past Psychological History: No Psychological Hx Reported Smoking Status: Never smoker Past Alcohol Use History: None Reported Past Drug Use History: None Reported - Past Family History Father Family Medical History: Myocardial Infarction ([place]) Additional Family Medical History / Comment(s): Passed at age 72. Mother Family Medical History: Myocardial Infarction ([place]) Additional Family Medical History / Comment(s): Passed at age 77. Brother(s) Family Medical History: Myocardial Infarction ([place]) Additional Family Medical History / Comment(s): 3 brothers passed from [place] in 50's. Sister(s) Family Medical History: Myocardial Infarction ([place]) Additional Family Medical History / Comment(s): sister 50s Medications and Allergies Home Medications Medication Instructions Recorded Confirmed Type amLODIPine BESYLATE [Norvasc] 10 mg PO QAM 04/19/14 04/22/24 History Insulin Glargine (Lantus) [Lantus 90 unit SQ HS 07/20/19 04/22/24 History Vial] INSULIN LISPRO (humaLOG) [humaLOG] 20 - 40 units SQ AC-TID 01/09/20 04/22/24 History Atorvastatin [Lipitor] 40 mg PO HS 09/19/22 04/22/24 History Omeprazole [PriLOSEC] 20 mg PO BID 11/21/22 04/22/24 History Nitroglycerin Sl Tabs [Nitrostat] 0.4 mg SL Q5M PRN 06/18/23 04/22/24 History Pregabalin [Lyrica] 150 mg PO BID 06/18/23 04/22/24 History Aspirin 81 mg PO QAM 04/01/24 04/22/24 History Ezetimibe [Zetia] 10 mg PO QAM 04/01/24 04/22/24 History Tamsulosin [Flomax] 0.4 mg PO HS 04/01/24 04/22/24 History Cyclobenzaprine [Flexeril] 10 mg PO TID PRN #60 tab 04/16/24 04/22/24 Rx Naproxen [Naprosyn] 500 mg PO DAILY #14 tablet 04/16/24 04/22/24 Rx cefaDROXiL [Duricef] 500 mg PO Q12HR #10 cap 04/16/24 04/22/24 Rx oxyCODONE-APAP 10-325MG [Percocet 1 tab PO Q4HR PRN #40 tab 04/16/24 04/22/24 Rx 10-325 mg] Isosorbide Mononitrate ER [Imdur] 60 mg PO DAILY 04/22/24 04/22/24 History Metoprolol Tartrate [Lopressor] 12.5 mg PO BID 04/22/24 04/22/24 History Sennosides/Docusate Sodium [Senna 2 tab PO DAILY PRN 04/22/24 04/22/24 History Plus 8.6-50 mg Tablet] Valsartan [Diovan] 40 mg PO DAILY 04/22/24 04/22/24 History diphenhydrAMINE HCL [Benadryl] 25 mg PO BID 04/22/24 04/22/24 History predniSONE See Taper PO DAILY 04/22/24 04/22/24 History Allergies Allergy/AdvReac Type Severity Reaction Status Date / Time No Known Allergies Allergy Verified 04/22/24 09:45 Surgical - Exam Vital Signs Temp Pulse Resp BP Pulse Ox 97.8 F 83 20 132/73 98 04/21/24 21:25 04/21/24 21:25 04/21/24 21:04/21/24:04/21/24: - General well developed, well nourished, no distress - Respiratory normal respiratory effort - Psychiatric oriented to time, oriented to person, oriented to place, speech is normal, memory intact Results - Labs 04/21/24 22:09 04/21/24 22:09 Abnormal Lab Results - Last 24 Hours (Table) 04/21/24 04/21/24 04/21/24 Range/Units 22:09 22:09 23:40 WBC 11.5 H (3.8-10.6) k/uL RBC 4.15 L (4.30-5.90) m/uL Hgb 10.6 L (13.0-17.5) gm/dL Hct 33.3 L (39.0-53.0) % Neutrophils # 8.4 H (1.3-7.7) k/uL Sodium 135 L (137-145) mmol/L BUN 24 H (9-20) mg/dL Glucose 137 H (74-99) mg/dL Urine Glucose (UA) 2+ H (Negative) Urine Opiates Screen Detected H (NotDetected) Ur Oxycodone Screen Detected H (NotDetected) U Tricyclic Antidepress Detected H (NotDetected) Diabetes panel 04/21/24 Range/Units 22:09 Sodium 135 L (137-145) mmol/L Potassium 4.3 (3.5-5.1) mmol/L Chloride 98 (98-107) mmol/L Carbon Dioxide 27 (22-30) mmol/L BUN 24 H (9-20) mg/dL Creatinine 1.11 (0.66-1.25) mg/dL Glucose 137 H (74-99) mg/dL Calcium 9.0 (8.4-10.2) mg/dL AST 20 (17-59) U/L ALT 21 (4-49) U/L Alkaline Phosphatase 111 (38-126) U/L Total Protein 6.8 (6.3-8.2) g/dL Albumin 4.2 (3.5-5.0) g/dL Calcium panel 04/21/24 Range/Units 22:09 Calcium 9.0 (8.4-10.2) mg/dL Albumin 4.2 (3.5-5.0) g/dL Pituitary panel 04/21/24 Range/Units 22:09 Sodium 135 L (137-145) mmol/L Potassium 4.3 (3.5-5.1) mmol/L Chloride 98 (98-107) mmol/L Carbon Dioxide 27 (22-30) mmol/L BUN 24 H (9-20) mg/dL Creatinine 1.11 (0.66-1.25) mg/dL Glucose 137 H (74-99) mg/dL Calcium 9.0 (8.4-10.2) mg/dL Adrenal panel 04/21/24 Range/Units 22:09 Sodium 135 L (137-145) mmol/L Potassium 4.3 (3.5-5.1) mmol/L Chloride 98 (98-107) mmol/L Carbon Dioxide 27 (22-30) mmol/L BUN 24 H (9-20) mg/dL Creatinine 1.11 (0.66-1.25) mg/dL Glucose 137 H (74-99) mg/dL Calcium 9.0 (8.4-10.2) mg/dL Total Bilirubin 0.7 (0.2-1.3) mg/dL AST 20 (17-59) U/L ALT 21 (4-49) U/L Alkaline Phosphatase 111 (38-126) U/L Total Protein 6.8 (6.3-8.2) g/dL Albumin 4.2 (3.5-5.0) g/dL Assessment and Plan (1) Urinary retention Current Visit: Yes Status: Acute Code(s): R33.9 - RETENTION OF URINE, UNSPECIFIED SNOMED Code(s): 853907297 Plan: The Kramer catheter she will remain in place to allow the bladder to regain tone. I anticipate that the patient will be discharged home with the catheter and follow-up with Dr. Mccarthy. He should continue to take tamsulosin. Time with Patient: Greater than 30
[2024-04-22 16:27] LABS: Glucose,Whole Blood 147 mg/dL (70-110)
[2024-04-22] MEDS: ATORVASTATIN 40 MG TAB PO SCH (20:00)
[2024-04-22] MEDS: TAMSULOSIN 0.4 MG CAP.ER.24H PO SCH (20:00)
[2024-04-22] MEDS: HYDROcodone/APAP 5-325MG 1 EACH TAB PO PRN (20:00)
[2024-04-22 20:40] LABS: Glucose,Whole Blood 232 mg/dL (70-110)
[2024-04-22] MEDS: METOPROLOL TARTRATE 12.5 MG TAB PO SCH (21:02)
--- NOTE | 2024-04-22 23:25 | P.CNNES ---
History of Present Illness Consult date: 04/22/24 Requesting physician: Maninder Guillen Reason for Consult: Visual hallucination History of Present Illness: Patient is a 79-year-old male came to the hospital yesterday at 9:18 PM for altered mental status. Patient's significant other was also present, who also provided with a history. Patient had undergone anterior cervical discectomy and fusion at C3-4, C5-6, C6-7 with insertion of biomechanical devices, cages x 3 and removal of hardware at C4-5, on 04/13/2024. He was discharged on 04/17/2024 on Friday. He was doing well for a couple days. However when they he started having some delusions. Patient and his significant other were watching [place] [employer] movie together, when he told her and pointed to "that little boy". Apparently this boy was in the movie and patient had delusions that he was in the home. Then he felt that his daughter was at his their house although she was not. He was seeing ants all over the floor. Patient told his significant other to put luggage out. When she asked where they were heading, he said to the home, although they were already in the home. Patient went to the toilet and told her to get the Tylenol immediately because borderline to the toilet is spraying water all over. She checked it out, and there was no leakage. It appeared that patient was discharged on oxycodone, and he was taking oxycodone 10 mg every 4 hours. He took the last dose yesterday morning at 8 AM. Today he has much improved and has not had any more hallucinations. Patient is now on [place], which he has been on before for his chronic back issues. Patient denies any focal symptoms whatsoever like slurred speech, facial droop, loss of vision, focal numbness, tingling dizziness or vertigo. Vital signs on arrival blood pressure 132/73, pulse rate 83 temperature 97.8. Patient has been afebrile. Blood test shows WBC 11.5 hemoglobin 10.6, normal platelets. PT PTT normal, VBG with pH of 7.29, pCO2 46, HCO3 27. Sodium 135 potassium 4.3, BUN 24 creatinine 1.11. Hepatic panel is normal. UA negative. Urine toxicology positive for opiates, oxycodone, tricyclic antidepressant. Blood alcohol level negative. Influenza, RSV and coronavirus PCR negative. Chest x-ray showed no acute findings. Thoracic spine CT showed no acute findings. There is lucency around the screws at T10 bilaterally and on the left at T11. CT scan of head showed no acute hemorrhage, hydrocephalus or mass effect. I personally reviewed CT head, agree with the findings. CT of the cervical spine showed extensive postoperative changes. Expected soft tissue changes. Overall evaluation limited due to streak artifact. EKG shows sinus rhythm.. Review of Systems All pertinent positive and negative review of systems mentioned in the HPI otherwise unremarkable. Past Medical History Past Medical History: Asthma, Coronary Artery Disease (CAD), Chest Pain / Angina, Diabetes Mellitus, GERD/Reflux, Hearing Disorder / Deafness, Hyperlipidemia, Hypertension Additional Past Medical History / Comment(s): IDDM. Hx chronic back pain, chronic pain syndrome. Neuropathy bilateral feet, [place]AL[place]SI[place]/uses hearing aids bilaterally. Rash to rt leg -irritation from socks and swelling to ankles. History of Any Multi-Drug Resistant Organisms: None Reported Past Surgical History: Heart Catheterization With Stent, Orthopedic Surgery Additional Past Surgical History / Comment(s): trigger 2nd digit left hand 10-20, trigger finger release rt hand,Cervical fusion, back lami/injections, neck sx, carpal tunnel surgery, colonoscopy/benign polypectomy. 3 stents placed 05/2021 and 04/2023. total of 5 heart caths. Past Anesthesia/Blood Transfusion Reactions: No Reported Reaction Additional Past Anesthesia/Blood Transfusion Reaction / Comment(s): no problems with prior blood transfusion. Date of Last Stent Placement:: May 2023 x3 stent total Past Psychological History: No Psychological Hx Reported Smoking Status: Never smoker Past Alcohol Use History: None Reported Past Drug Use History: None Reported - Past Family History Father Family Medical History: Myocardial Infarction ([place]) Additional Family Medical History / Comment(s): Passed at age 72. Mother Family Medical History: Myocardial Infarction ([place]) Additional Family Medical History / Comment(s): Passed at age 77. Brother(s) Family Medical History: Myocardial Infarction ([place]) Additional Family Medical History / Comment(s): 3 brothers passed from [place] in 50's. Sister(s) Family Medical History: Myocardial Infarction ([place]) Additional Family Medical History / Comment(s): sister 50s Medications and Allergies Home Medications Medication Instructions Recorded Confirmed Type amLODIPine BESYLATE [Norvasc] 10 mg PO QAM 04/19/14 04/22/24 History Insulin Glargine (Lantus) [Lantus 90 unit SQ HS 07/20/19 04/22/24 History Vial] INSULIN LISPRO (humaLOG) [humaLOG] 20 - 40 units SQ AC-TID 01/09/20 04/22/24 History Atorvastatin [Lipitor] 40 mg PO HS 09/19/22 04/22/24 History Omeprazole [PriLOSEC] 20 mg PO BID 11/21/22 04/22/24 History Nitroglycerin Sl Tabs [Nitrostat] 0.4 mg SL Q5M PRN 06/18/23 04/22/24 History Pregabalin [Lyrica] 150 mg PO BID 06/18/23 04/22/24 History Aspirin 81 mg PO QAM 04/01/24 04/22/24 History Ezetimibe [Zetia] 10 mg PO QAM 04/01/24 04/22/24 History Tamsulosin [Flomax] 0.4 mg PO HS 04/01/24 04/22/24 History Cyclobenzaprine [Flexeril] 10 mg PO TID PRN #60 tab 04/16/24 04/22/24 Rx Naproxen [Naprosyn] 500 mg PO DAILY #14 tablet 04/16/24 04/22/24 Rx cefaDROXiL [Duricef] 500 mg PO Q12HR #10 cap 04/16/24 04/22/24 Rx oxyCODONE-APAP 10-325MG [Percocet 1 tab PO Q4HR PRN #40 tab 04/16/24 04/22/24 Rx 10-325 mg] Isosorbide Mononitrate ER [Imdur] 60 mg PO DAILY 04/22/24 04/22/24 History Metoprolol Tartrate [Lopressor] 12.5 mg PO BID 04/22/24 04/22/24 History Sennosides/Docusate Sodium [Senna 2 tab PO DAILY PRN 04/22/24 04/22/24 History Plus 8.6-50 mg Tablet] Valsartan [Diovan] 40 mg PO DAILY 04/22/24 04/22/24 History diphenhydrAMINE HCL [Benadryl] 25 mg PO BID 04/22/24 04/22/24 History predniSONE See Taper PO DAILY 04/22/24 04/22/24 History Allergies Allergy/AdvReac Type Severity Reaction Status Date / Time No Known Allergies Allergy Verified 04/22/24 09:45 Physical Examination - Vital Signs Vital Signs: Vital Signs Temp Pulse Pulse Resp BP BP Pulse Ox 04/22/24 13:24 98.5 F 73 17 147/73 95 04/22/24 08:00 58 L 18 04/22/24 07:39 97.9 F 58 L 18 154/71 97 04/22/24 04:23 97.7 F 60 16 144/75 94 L 04/22/24 03:00 64 159/82 04/22/24 02:00 63 169/91 04/22/24 00:31 70 148/76 04/21/24 23:51 71 18 152/84 96 04/21/24 21:25 97.8 F 83 20 132/73 98 Intake and Output 04/21/24 04/22/24 04/22/24 22:59 06:59 14:59 Intake Total 0 Output Total 1300 Balance -1300 Intake: Oral 0 Output: Urine 1300 Other: Voiding Method External Catheter # Voids 0 Weight 90.718 kg 90.718 kg Results - Laboratory Findings CBC and BMP: 04/21/24 22:09 04/21/24 22:09 Abnormal Lab Findings: Abnormal Labs 04/21/24 04/21/24 04/21/24 22:09 22:09 23:40 WBC 11.5 H RBC 4.15 L Hgb 10.6 L Hct 33.3 L Neutrophils # 8.4 H Sodium 135 L BUN 24 H Glucose 137 H POC Glucose (mg/dL) Urine Glucose (UA) 2+ H Urine Opiates Screen Detected H Ur Oxycodone Screen Detected H U Tricyclic Antidepress Detected H 04/22/24 04/22/24 06:31 11:34 WBC RBC Hgb Hct Neutrophils # Sodium BUN Glucose POC Glucose (mg/dL) 113 H 132 H Urine Glucose (UA) Urine Opiates Screen Ur Oxycodone Screen U Tricyclic Antidepress Assessment and Plan Assessment: * Delirium, likely due to opiates for pain control. Patient was receiving oxycodone 10/325 mg, every 4 hours, which likely resulted in delirium. * Status post anterior cervical discectomy and fusion 04/13/2024 * Diabetes * Hypertension * Hyperlipidemia * Coronary artery disease * Hard of hearing Plan: * Patient's delusions and hallucinations have resolved since stopping oxycodone. * Patient's mentation and sensorium is normal. No other workup indicated. * Limit use of opiates, anticholinergics, sedatives and hypnotics. Patient is d oing well on [place]. * Neurologically clear. We will sign off. * Thank you for the consult.
[2024-04-23 06:12] LABS: Glucose,Whole Blood 128 mg/dL (70-110)
[2024-04-23] MEDS: PANTOPRAZOLE 40 MG TABLET PO SCH (06:30)
[2024-04-23] MEDS: ISOSORBIDE MONONITRATE ER 60 MG TAB.ER.24H PO SCH (08:16)
[2024-04-23] MEDS: amLODIPine 10 MG TAB PO SCH (08:16)
[2024-04-23] MEDS: SENNOSIDES 8.6 MG TAB PO SCH (08:16)
[2024-04-23] MEDS: ASPIRIN 81 MG PO SCH (08:16)
[2024-04-23] MEDS: EZETIMIBE 10 MG TAB PO SCH (08:16)
--- NOTE | 2024-04-23 09:30 | P.PN ---
Subjective Progress Note Date: 04/23/24 Primitivo Benjamin is an 79-year-old male patient who presents to the ER with complaints of hallucinations. Patient was recently and admitted for cervical fusion on April 13, 2024 and discharged home on April 17, 2024 apparently. Patient was recovering well but started to have increased hallucinations over the past few days. Patient has a past medical history of asthma, CAD, chest pain, GERD, hard of hearing, hyperlipidemia, hypertension, previous heart cath with stents. Chest x-ray completed showing no acute findings. Thoracic spine CT showing no acute findings there is lucency around the screws of T10 bilaterally and on the left at T11. Head and cervical spine CT completed showing no acute hemorrhage hydrocephalus or mass effect extensive postoperative changes. Lab work completed showing WBC of 11.5, hemoglobin 10.6 ABGs within normal limits, creatinine 1.11 bun 24, ammonia less than 9. UA negative influenza RSV and COVID-19 negative. UA positive for opioids, oxycodone and tricyclic antidepressants. At this time patient is resting comfortably in bed patient is very sleepy. Current vital signs temp 97.9, heart rate 60, respiratory rate 18, blood pressure 154/71 with a pulse ox of 97% on room air. Patient denies chest pain or shortness of breath. Patient denies nausea v omiting or diarrhea. Patient denies any urinary burning or frequency. At this time patient will be admitted neurology urology and orthopedic services consulted On 04/23/2024 patient is alert and oriented x 3 more alert and follows all commands today. Patient was evaluated by neurology services confusion likely secondary from opioids. Patient also evaluated by urology services Kramer catheter placed and recommend discharge with Kramer and follow-up outpatient. Orthopedic services also evaluated patient continue to recover postoperatively and follow-up outpatient. At this time patient complaining of constipation patient maintained on senna and milk of mag. Patient denies chest pain or sh ortness of breath. Patient denies nausea vomiting or diarrhea. Patient denies any urinary burning or frequency. Current vital signs temp 98.3, heart rate 66, respiratory rate 18, blood pressure 150/75 with a pulse ox of 97% on room air Objective - Vital Signs Vital signs: Vital Signs Temp 97.9 F 04/23/24 01:11 Pulse 86 04/23/24 08:00 Resp 16 04/23/24 08:00 BP 176/99 04/23/24 08:00 Pulse Ox 97 04/23/24 01:11 FiO2 Intake & Output 04/22/24 04/23/24 04/23/24 18:59 06:59 18:59 Output Total 1100 500 Balance -1100 -500 Output: Urine 1100 500 Other: Voiding Method External Catheter External Catheter External Catheter - Exam Head normocephalic Neck supple Lungs clear to auscultation bilaterally no wheezing or crackles Heart regular rate and rhythm S1-S2, no rub or gallop Abdomen is soft nontender nondistended positive bowel sounds no hepatosplenomegaly Extremities no edema Neuro alert and orientated to 3. - Labs CBC & Chem 7: 04/21/24 22:09 04/21/24 22:09 Labs: Abnormal Lab Results - Last 24 Hours (Table) 04/22/24 04/22/24 04/22/24 Range/Units 11:34 16:23 20:38 POC Glucose (mg/dL) 132 H 147 H 232 H (70-110) mg/dL 04/23/24 Range/Units 06:11 POC Glucose (mg/dL) 128 H (70-110) mg/dL Assessment and Plan Assessment: 1. Generalized weakness and hallucinations. Resolved 2. Status post cervical spine surgery on 04/13/2024 3. Urinary retention. Kramer catheter placed patient to be DC'd with Kramer catheter in place 4. History of insulin-dependent diabetes mellitus 5. History of essential hypertension 6. History of hyperlipidemia 7. History of coronary artery disease 8. History of GERD DVT prophylaxis SCDs due to recent spinal surgery. GI prophylaxis Protonix Kramer catheter placed for urinary retention urology services consulted Neurology services consulted Orthopedic services consulted Repeat labs ordered
[2024-04-23 10:52] LABS: ALT 19 U/L (10-49); AST 16 U/L (14-35); Albumin 3.9 g/dL (3.8-4.9); Alkaline Phosphatase 111 U/L (41-126); BUN/Creat Ratio 17.18 Ratio (12.00-20.00); Blood Urea Nitrogen 18.9 mg/dL (9.0-27.0); Calcium 8.9 mg/dL (8.7-10.3); Carbon Dioxide 23.3 mmol/L (21.6-31.8); Chloride 102 mmol/L (96-109); Globulin 2.3 g/dL (1.6-3.3); Glucose 123 mg/dL (70-110); Potassium 4.4 mmol/L (3.5-5.5); Sodium 138 mmol/L (135-145); Total Bilirubin 0.4 mg/dL (0.3-1.2); Total Protein 6.2 g/dL (6.2-8.2)
[2024-04-23 10:57] LABS: Basophils % (A) 0.9 %; Eosinophils # (A) 1.07 X 10*3/uL (0.04-0.35); Eosinophils % (A) 9.5 %; HCT 35.1 % (39.6-50.0); Lymphocytes # (A) 2.31 X 10*3/uL (0.90-5.00); Lymphocytes % (A) 20.6 %; MCH 25.2 pg (27.0-32.0); MCHC 31.3 g/dL (32.0-37.0); MCV 80.5 FL (80.0-97.0); Mean Platelet Volume 9.9 FL (9.5-12.2); Monocytes # (A) 0.98 X 10*3/uL (0.20-1.00); Monocytes % (A) 8.7 %; NRBC Per 100 WBC 0 X 10*3/uL (0.00-0.01); Neutrophils # (A) 6.72 X 10*3/uL (1.80-7.70); Neutrophils % (A) 59.8 %; Platelet Count 367 X 10*3/uL (140-440); RBC 4.36 X 10*6/uL (4.40-5.60); RDW 16.2 % (11.5-14.5); WBC 11.24 X 10*3/uL (4.50-10.00)
[2024-04-23 11:09] LABS: Glucose,Whole Blood 209 mg/dL (70-110)
--- NOTE | 2024-04-23 12:46 | P.PN ---
Subjective Progress Note Date: 04/23/24 Principal diagnosis: Urinary retention Mr. Gould was found to be in urinary retention at the time of presentation to the ER, and a Kramer catheter was placed. The catheter remains in place and is draining clear yellow urine. Objective - Vital Signs Vital signs: Vital Signs Temp 97.9 F 04/23/24 01:11 Pulse 86 04/23/24 08:00 Resp 16 04/23/24 08:00 BP 176/99 04/23/24 08:00 Pulse Ox 97 04/23/24 01:11 FiO2 Intake & Output 04/22/24 04/23/24 04/23/24 18:59 06:59 18:59 Output Total 1100 500 Balance -1100 -500 Output: Urine 1100 500 Other: Voiding Method External Catheter External Catheter External Catheter - Constitutional General appearance: Present: average body habitus, cooperative, no acute dist ress - Psychiatric Psychiatric: Present: A&O x's 3 - Labs CBC & Chem 7: 04/23/24 03:12 04/23/24 03:12 Labs: Abnormal Lab Results - Last 24 Hours (Table) 04/22/24 04/22/24 04/23/24 Range/Units 16:23 20:38 03:12 WBC (4.50-10.00) X 10*3/uL RBC (4.40-5.60) X 10*6/uL Hgb (13.0-17.0) g/dL Hct (39.6-50.0) % MCH (27.0-32.0) pg MCHC (32.0-37.0) g/dL RDW (11.5-14.5) % Immature Gran # (0.00-0.04) X 10*3/uL Eosinophils # (0.04-0.35) X 10*3/uL Anion Gap (4.00-12.00) mmol/L Glucose (70-110) mg/dL POC Glucose (mg/dL) 147 H 232 H (70-110) mg/dL Hemoglobin A1c 7.6 H (<=6.0) % 04/23/24 04/23/24 04/23/24 Range/Units 03:12 03:12 06:11 WBC 11.24 H (4.50-10.00) X 10*3/uL RBC 4.36 L (4.40-5.60) X 10*6/uL Hgb 11.0 L (13.0-17.0) g/dL Hct 35.1 L (39.6-50.0) % MCH 25.2 L (27.0-32.0) pg MCHC 31.3 L (32.0-37.0) g/dL RDW 16.2 H (11.5-14.5) % Immature Gran # 0.06 H (0.00-0.04) X 10*3/uL Eosinophils # 1.07 H (0.04-0.35) X 10*3/uL Anion Gap 12.70 H (4.00-12.00) mmol/L Glucose 123 H (70-110) mg/dL POC Glucose (mg/dL) 128 H (70-110) mg/dL Hemoglobin A1c (<=6.0) % 04/23/24 Range/Units 11:07 WBC (4.50-10.00) X 10*3/uL RBC (4.40-5.60) X 10*6/uL Hgb (13.0-17.0) g/dL Hct (39.6-50.0) % MCH (27.0-32.0) pg MCHC (32.0-37.0) g/dL RDW (11.5-14.5) % Immature Gran # (0.00-0.04) X 10*3/uL Eosinophils # (0.04-0.35) X 10*3/uL Anion Gap (4.00-12.00) mmol/L Glucose (70-110) mg/dL POC Glucose (mg/dL) 209 H (70-110) mg/dL Hemoglobin A1c (<=6.0) % Assessment and Plan (1) Urinary retention Current Visit: Yes Status: Acute Code(s): R33.9 - RETENTION OF URINE, UNSPECIFIED SNOMED Code(s): 856717336 Plan: The Kramer catheter she will remain in place to allow the bladder to regain tone. The patient will be discharged home with the catheter and follow-up with Dr. Mccarthy. He should continue to take tamsulosin. Please notify me if I can be of any further assistance.
[2024-04-23] MEDS: LACTULOSE 20 GM/30 ML CUP PO ONE (17:05)
[2024-04-23 17:21] LABS: Glucose,Whole Blood 160 mg/dL (70-110)
[2024-04-23] MEDS: MAGNESIUM HYDROXIDE 2,400 MG/30 ML CUP PO PRN (17:59)
[2024-04-23 20:44] LABS: Glucose,Whole Blood 204 mg/dL (70-110)
[2024-04-24 06:13] LABS: Glucose,Whole Blood 150 mg/dL (70-110)
[2024-04-24 10:02] LABS: Basophils # (A) 0.09 X 10*3/uL (0.00-0.10); Basophils % (A) 0.8 %; Eosinophils % (A) 9.2 %; HCT 32.5 % (39.6-50.0); HGB 10.2 g/dL (13.0-17.0); Lymphocytes # (A) 2.18 X 10*3/uL (0.90-5.00); Lymphocytes % (A) 18.3 %; MCH 25.4 pg (27.0-32.0); MCHC 31.4 g/dL (32.0-37.0); MCV 80.8 FL (80.0-97.0); Mean Platelet Volume 9.9 FL (9.5-12.2); Monocytes # (A) 0.97 X 10*3/uL (0.20-1.00); Monocytes % (A) 8.1 %; NRBC Per 100 WBC 0 X 10*3/uL (0.00-0.01); Neutrophils # (A) 7.52 X 10*3/uL (1.80-7.70); Neutrophils % (A) 63.1 %; Platelet Count 384 X 10*3/uL (140-440); RBC 4.02 X 10*6/uL (4.40-5.60); RDW 16.3 % (11.5-14.5); WBC 11.92 X 10*3/uL (4.50-10.00)
[2024-04-24 10:37] LABS: Glucose,Whole Blood 239 mg/dL (70-110)
[2024-04-24 12:14] LABS: ALT 19 U/L (10-49); AST 13 U/L (14-35); Albumin 3.8 g/dL (3.8-4.9); Albumin/Globulin Ratio 1.73 Ratio (1.60-3.17); Alkaline Phosphatase 109 U/L (41-126); BUN/Creat Ratio 17.83 Ratio (12.00-20.00); Blood Urea Nitrogen 21.4 mg/dL (9.0-27.0); Calcium 8.6 mg/dL (8.7-10.3); Carbon Dioxide 23.4 mmol/L (21.6-31.8); Chloride 100 mmol/L (96-109); Globulin 2.2 g/dL (1.6-3.3); Glucose 148 mg/dL (70-110); Potassium 4.4 mmol/L (3.5-5.5); Sodium 134 mmol/L (135-145); Total Bilirubin 0.3 mg/dL (0.3-1.2)
--- NOTE | 2024-04-24 12:53 | P.PN ---
Subjective Progress Note Date: 04/23/24 Patient was seen for a follow-up. Patient states he had a BM after many days. Patient states he has not had any more hallucinations/delusions. Everything is all cleared. Denies any neurological symptoms. Objective - Vital Signs Vital signs: Vital Signs Temp 98.1 F 04/23/24 13:48 Pulse 68 04/23/24 13:48 Resp 17 04/23/24 13:48 BP 112/61 04/23/24 13:48 Pulse Ox 96 04/23/24 13:48 FiO2 Intake & Output 04/22/24 04/23/24 04/23/24 18:59 06:59 18:59 Output Total 1100 500 Balance -1100 -500 Output: Urine 1100 500 Other: Voiding Method External Catheter External Catheter External Catheter - Exam Mentation normal. Sensorium clear. Neurological examination nonfocal. - Labs CBC & Chem 7: 04/24/24 03:50 04/24/24 03:50 Labs: Abnormal Lab Results - Last 24 Hours (Table) 04/22/24 04/23/24 04/23/24 Range/Units 20:38 03:12 03:12 WBC 11.24 H (4.50-10.00) X 10*3/uL RBC 4.36 L (4.40-5.60) X 10*6/uL Hgb 11.0 L (13.0-17.0) g/dL Hct 35.1 L (39.6-50.0) % MCH 25.2 L (27.0-32.0) pg MCHC 31.3 L (32.0-37.0) g/dL RDW 16.2 H (11.5-14.5) % Immature Gran # 0.06 H (0.00-0.04) X 10*3/uL Eosinophils # 1.07 H (0.04-0.35) X 10*3/uL Anion Gap (4.00-12.00) mmol/L Glucose (70-110) mg/dL POC Glucose (mg/dL) 232 H (70-110) mg/dL Hemoglobin A1c 7.6 H (<=6.0) % 04/23/24 04/23/24 04/23/24 Range/Units 03:12 06:11 11:07 WBC (4.50-10.00) X 10*3/uL RBC (4.40-5.60) X 10*6/uL Hgb (13.0-17.0) g/dL Hct (39.6-50.0) % MCH (27.0-32.0) pg MCHC (32.0-37.0) g/dL RDW (11.5-14.5) % Immature Gran # (0.00-0.04) X 10*3/uL Eosinophils # (0.04-0.35) X 10*3/uL Anion Gap 12.70 H (4.00-12.00) mmol/L Glucose 123 H (70-110) mg/dL POC Glucose (mg/dL) 128 H 209 H (70-110) mg/dL Hemoglobin A1c (<=6.0) % Assessment and Plan Assessment: * Delirium, likely due to opiates for pain control. Patient was receiving oxycodone 10/325 mg, every 4 hours, which likely resulted in delirium. * Status post anterior cervical discectomy and fusion 04/13/2024 * Diabetes * Hypertension * Hyperlipidemia * Coronary artery disease * Urinary retention, urology following * Hard of hearing Plan: * Patient's delusions and hallucinations have resolved since stopping oxycodone. He has been stable for last 48 hours. * Patient's mentation and sensorium is normal. No other workup indicated. * Limit use of opiates, anticholinergics, sedatives and hypnotics. Patient is doing well on [place]. * Neurologically clear. We will sign off. Please reconsult if any concerns.
--- NOTE | 2024-04-24 14:56 | P.PN ---
Subjective Progress Note Date: 04/24/24 Primitivo Benjamin is an 79-year-old male patient who presents to the ER with complaints of hallucinations. Patient was recently and admitted for cervical fusion on April 13, 2024 and discharged home on April 17, 2024 apparently. Patient was recovering well but started to have increased hallucinations over the past few days. Patient has a past medical history of asthma, CAD, chest pain, GERD, hard of hearing, hyperlipidemia, hypertension, previous heart cath with stents. Chest x-ray completed showing no acute findings. Thoracic spine CT showing no acute findings there is lucency around the screws of T10 bilaterally and on the left at T11. Head and cervical spine CT completed showing no acute hemorrhage hydrocephalus or mass effect extensive postoperative changes. Lab work completed showing WBC of 11.5, hemoglobin 10.6 ABGs within normal limits, creatinine 1.11 bun 24, ammonia less than 9. UA negative influenza RSV and COVID-19 negative. UA positive for opioids, oxycodone and tricyclic antidepressants. At this time patient is resting comfortably in bed patient is very sleepy. Current vital signs temp 97.9, heart rate 60, respiratory rate 18, blood pressure 154/71 with a pulse ox of 97% on room air. Patient denies chest pain or shortness of breath. Patient denies nausea v omiting or diarrhea. Patient denies any urinary burning or frequency. At this time patient will be admitted neurology urology and orthopedic services consulted On 04/23/2024 patient is alert and oriented x 3 more alert and follows all commands today. Patient was evaluated by neurology services confusion likely secondary from opioids. Patient also evaluated by urology services Kramer catheter placed and recommend discharge with Kramer and follow-up outpatient. Orthopedic services also evaluated patient continue to recover postoperatively and follow-up outpatient. At this time patient complaining of constipation patient maintained on senna and milk of mag. Patient denies chest pain or sh ortness of breath. Patient denies nausea vomiting or diarrhea. Patient denies any urinary burning or frequency. Current vital signs temp 98.3, heart rate 66, respiratory rate 18, blood pressure 150/75 with a pulse ox of 97% on room air On 04/24/2024 patient was seen and examined on the medical floor he is alert and oriented in no apparent distress there is no fever or chills no headache or dizz iness no chest pain no shortness of breath no cough no nausea or vomiting no abdominal pain no diarrhea and no urinary symptoms. Patient is having generalized weakness and was not able to continue with physical therapy today, will monitor till tomorrow. Patient had urinary retention and has a Kramer catheter in at this time. Recommendation by urology is to keep Kramer catheter in at the time of discharge and follow-up with Dr. Forman as outpatient. Objective - Vital Signs Vital signs: Vital Signs Temp 98.0 F 04/24/24 08:05 Pulse 75 04/24/24 08:05 Resp 17 04/24/24 08:05 BP 121/62 04/24/24 08:05 Pulse Ox 98 04/24/24 08:05 FiO2 Intake & Output 04/23/24 04/24/24 04/24/24 18:59 06:59 18:59 Intake Total 450 Output Total 400 600 Balance 50 -600 Intake: Oral 450 Output: Urine 400 600 Other: Voiding Method External Catheter External Catheter # Voids 1 - Exam Head normocephalic Neck supple Lungs clear to auscultation bilaterally no wheezing or crackles Heart regular rate and rhythm S1-S2, no rub or gallop Abdomen is soft nontender nondistended positive bowel sounds no hepatosplenomegaly Extremities no edema Neuro alert and orientated to 3. - Labs CBC & Chem 7: 04/24/24 03:50 04/24/24 03:50 Labs: Abnormal Lab Results - Last 24 Hours (Table) 04/23/24 04/23/24 04/24/24 Range/Units 17:19 20:42 03:50 WBC 11.92 H (4.50-10.00) X 10*3/uL RBC 4.02 L (4.40-5.60) X 10*6/uL Hgb 10.2 L (13.0-17.0) g/dL Hct 32.5 L (39.6-50.0) % MCH 25.4 L (27.0-32.0) pg MCHC 31.4 L (32.0-37.0) g/dL RDW 16.3 H (11.5-14.5) % Immature Gran # 0.06 H (0.00-0.04) X 10*3/uL Eosinophils # 1.10 H (0.04-0.35) X 10*3/uL Sodium (135-145) mmol/L Glucose (70-110) mg/dL POC Glucose (mg/dL) 160 H 204 H (70-110) mg/dL Calcium (8.7-10.3) mg/dL AST (14-35) U/L Total Protein (6.2-8.2) g/dL 04/24/24 04/24/24 04/24/24 Range/Units 03:50 06:12 10:34 WBC (4.50-10.00) X 10*3/uL RBC (4.40-5.60) X 10*6/uL Hgb (13.0-17.0) g/dL Hct (39.6-50.0) % MCH (27.0-32.0) pg MCHC (32.0-37.0) g/dL RDW (11.5-14.5) % Immature Gran # (0.00-0.04) X 10*3/uL Eosinophils # (0.04-0.35) X 10*3/uL Sodium 134 L (135-145) mmol/L Glucose 148 H (70-110) mg/dL POC Glucose (mg/dL) 150 H 239 H (70-110) mg/dL Calcium 8.6 L (8.7-10.3) mg/dL AST 13 L (14-35) U/L Total Protein 6.0 L (6.2-8.2) g/dL Assessment and Plan Assessment: 1. Generalized weakness and hallucinations. Resolved 2. Status post cervical spine surgery on 04/13/2024 3. Urinary retention. Kramer catheter placed patient to be DC'd with Kramer catheter in place 4. History of insulin-dependent diabetes mellitus 5. History of essential hypertension 6. History of hyperlipidemia 7. History of coronary artery disease 8. History of GERD DVT prophylaxis SCDs due to recent spinal surgery. GI prophylaxis Protonix Kramer catheter placed for urinary retention urology services consulted Neurology services consulted Orthopedic services consulted Repeat labs ordered
[2024-04-24 16:34] LABS: Glucose,Whole Blood 178 mg/dL (70-110)
[2024-04-24 20:51] LABS: Glucose,Whole Blood 205 mg/dL (70-110)
[2024-04-25 06:38] LABS: Glucose,Whole Blood 164 mg/dL (70-110)
[2024-04-25 08:14] VITALS: BP 169/88; PULSE 65; RESP 17; TEMP 98.2
--- NOTE | 2024-04-25 11:21 | P.DS ---
Providers Date of admission: 04/22/24 02:21 Expected date of discharge: 04/25/24 Attending physician: Pete Fountain Consults: 04/22/24 02:21 Consult Physician Routine Consulting Provider: Martin Araujo Consult Reason/Comments: recent C/T spine surgery Do you want consulting provider notified?: Yes Consult Physician Routine Consulting Provider: Talisha Joseph Consult Reason/Comments: visual hallucinations Do you want consulting provider notified?: Yes 04/22/24 02:38 Consult Physician Routine Consulting Provider: Donal Castellanos Consult Reason/Comments: urinary retention Do you want consulting provider notified?: Yes Primary care physician: Pete Fountain [facility] Course: Discharge diagnosis 1. Generalized weakness and hallucinations. Resolved 2. Status post cervical spine surgery on 04/13/2024 3. Urinary retention. Kramer catheter placed patient to be DC'd with Kramer catheter in place 4. History of insulin-dependent diabetes mellitus 5. History of essential hypertension 6. History of hyperlipidemia 7. History of coronary artery disease 8. History of GERD Hospital course Primitivo Benjamin is an 79-year-old male patient who presents to the ER with complaints of hallucinations. Patient was recently and admitted for cervical fusion on April 13, 2024 and discharged home on April 17, 2024 apparently. Patient was recovering well but started to have increased hallucinations over the past few days. Patient has a past medical history of asthma, CAD, chest pain, GERD, hard of hearing, hyperlipidemia, hypertension, previous heart cath with stents. Chest x-ray completed showing no acute findings. Thoracic spine CT showing no acute findings there is lucency around the screws of T10 bilaterally and on the left at T11. Head and cervical spine CT completed showing no acute hemorrhage hydrocephalus or mass effect extensive postoperative changes. Lab work completed showing WBC of 11.5, hemoglobin 10.6 ABGs within normal limits, creatinine 1.11 bun 24, ammonia less than 9. UA negative influenza RSV and COVID-19 negative. UA positive for opioids, oxycodone and tricyclic antidepressants. At this time patient is resting comfortably in bed patient is very sleepy. Current vital signs temp 97.9, heart rate 60, respiratory rate 18, blood pressure 154/71 with a pulse ox of 97% on room air. Patient denies chest pain or shortness of breath. Patient denies nausea vomiting or diarrhea. Patient denies any urinary burning or frequency. At this time patient will be admitted neurology urology and orthopedic services consulted On 04/23/2024 patient is alert and oriented x 3 more alert and follows all commands today. Patient was evaluated by neurology services confusion likely secondary from opioids. Patient also evaluated by urology services Kramer catheter placed and recommend discharge with Kramer and follow-up outpatient. Orthopedic services also evaluated patient continue to recover postoperatively and follow-up outpatient. At this time patient complaining of constipation patient maintained on senna and milk of mag. Patient denies chest pain or shortness of breath. Patient denies nausea vomiting or diarrhea. Patient denies any urinary burning or frequency. Current vital signs temp 98.3, heart rate 66, respiratory rate 18, blood pressure 150/75 with a pulse ox of 97% on room air On 04/24/2024 patient was seen and examined on the medical floor he is alert and oriented in no apparent distress there is no fever or chills no headache or dizziness no chest pain no shortness of breath no cough no nausea or vomiting no abdominal pain no diarrhea and no urinary symptoms. Patient is having generalized weakness and was not able to continue with physical therapy today, will monitor till tomorrow. Patient had urinary retention and has a Kramer catheter in at this time. Recommendation by urology is to keep Kramer catheter in at the time of discharge and follow-up with Dr. Forman as outpatient. On 04/25/2024 patient is alert and oriented x 3. Patient is very eager to be DC'd home. Patient did have bowel movement yesterday. Patient will be DC'd home with Kramer catheter and follow-up outpatient with urology services for further management. At this time patient denies chest pain or shortness of breath. Patient denies nausea vomiting or diarrhea. Patient denies any urinary burning or frequency Patient Condition at Discharge: Stable Plan - Discharge Summary Discharge Rx Participant: Yes New Discharge Prescriptions: New HYDROcodone/APAP 5-325MG [[place] 5-325] 1 each PO Q4HR PRN 3 Days #18 tab PRN Reason: Moderate Pain (Scale 4 To 6) Continue amLODIPine BESYLATE [Norvasc] 10 mg PO QAM Insulin Glargine (Lantus) [Lantus Vial] 90 unit SQ HS INSULIN LISPRO (humaLOG) [humaLOG] 20 - 40 units SQ AC-TID Aspirin 81 mg PO QAM Sennosides/Docusate Sodium [Senna Plus 8.6-50 mg Tablet] 2 tab PO DAILY PRN PRN Reason: Constipation Tamsulosin [Flomax] 0.4 mg PO HS 30 Days #30 cap Atorvastatin [Lipitor] 40 mg PO HS Omeprazole [PriLOSEC] 20 mg PO BID Nitroglycerin Sl Tabs [Nitrostat] 0.4 mg SL Q5M PRN PRN Reason: Chest Pain Ezetimibe [Zetia] 10 mg PO QAM Isosorbide Mononitrate ER [Imdur] 60 mg PO DAILY Metoprolol Tartrate [Lopressor] 12.5 mg PO BID Discontinued Pregabalin [Lyrica] 150 mg PO BID cefaDROXiL [Duricef] 500 mg PO Q12HR #10 cap Naproxen [Naprosyn] 500 mg PO DAILY #14 tablet diphenhydrAMINE HCL [Benadryl] 25 mg PO BID predniSONE See Taper PO DAILY Valsartan [Diovan] 40 mg PO DAILY Cyclobenzaprine [Flexeril] 10 mg PO TID PRN #60 tab PRN Reason: Muscle Spasm oxyCODONE-APAP 10-325MG [Percocet 10-325 mg] 1 tab PO Q4HR PRN #40 tab PRN Reason: Pain Discharge Medication List amLODIPine BESYLATE [Norvasc] 10 mg PO QAM 04/19/14 [History] Insulin Glargine (Lantus) [Lantus Vial] 90 unit SQ HS 07/20/19 [History] INSULIN LISPRO (humaLOG) [humaLOG] 20 - 40 units SQ AC-TID 01/09/20 [History] Atorvastatin [Lipitor] 40 mg PO HS 09/19/22 [History] Omeprazole [PriLOSEC] 20 mg PO BID 11/21/22 [History] Nitroglycerin Sl Tabs [Nitrostat] 0.4 mg SL Q5M PRN 06/18/23 [History] Aspirin 81 mg PO QAM 04/01/24 [History] Ezetimibe [Zetia] 10 mg PO QAM 04/01/24 [History] Isosorbide Mononitrate ER [Imdur] 60 mg PO DAILY 04/22/24 [History] Metoprolol Tartrate [Lopressor] 12.5 mg PO BID 04/22/24 [History] Sennosides/Docusate Sodium [Senna Plus 8.6-50 mg Tablet] 2 tab PO DAILY PRN 04/22/24 [History] Tamsulosin [Flomax] 0.4 mg PO HS 30 Days #30 cap 04/23/24 [Rx] HYDROcodone/APAP 5-325MG [[place] 5-325] 1 each PO Q4HR PRN 3 Days #18 tab 04/25/24 [Rx] Follow up Appointment(s)/Referral(s): Pete Fountain MD [Primary Care Provider] - 1-2 days Demetrius Mccarthy MD [STAFF PHYSICIAN] - 1 Week [facility] Visiting Nurse, [NON-STAFF] - As Needed
[2024-04-25 11:32] LABS: Glucose,Whole Blood 200 mg/dL (70-110)
== END 2024-04-25 12:55 | disposition home or self-care (01) | DRG 880 ==
LOC: EC 21:18 → 4SSUR 04-22 02:21
PROVIDERS: ADMIT Internal Medicine; ATTEND Internal Medicine
DX: R44.3 Hallucinations, unspecified (principal); F05 Delirium due to known physiological condition; E11.42 Type 2 diabetes mellitus with diabetic polyneuropathy; I10 Essential (primary) hypertension; J45.909 Unspecified asthma, uncomplicated; Z79.4 Long term (current) use of insulin; R53.1 Weakness; Z11.52 Encounter for screening for COVID-19; E78.5 Hyperlipidemia, unspecified; G89.4 Chronic pain syndrome; H91.90 Unspecified hearing loss, unspecified ear; T40.605A Adverse effect of unspecified narcotics, initial encounter; I25.10 Atherosclerotic heart disease of native coronary artery without angina pectoris; K59.00 Constipation, unspecified; N40.1 Benign prostatic hyperplasia with lower urinary tract symptoms; R33.8 Other retention of urine; Z79.82 Long term (current) use of aspirin; Z79.899 Other long term (current) drug therapy; Z82.49 Family history of ischemic heart disease and other diseases of the circulatory system; Z98.1 Arthrodesis status; X58.XXXA Exposure to other specified factors, initial encounter
CPT/HCPCS: 36415; 51798; 70450; 71045; 72125; 72128; 80053; 80306; 80320; 81003; 82140; 82803; 83036; 83880; 85025; 85610; 85730; 87636; 93005; 99285

== ENCOUNTER 2024-05-14 14:35 | Emergency (ER) | payer MEDICARE ==
--- NOTE | 2024-05-14 14:45 | ED ---
Male Urogenital HPI - General Source: patient, family, RN notes reviewed Mode of arrival: ambulatory Limitations: no limitations <Alexandria Sapp - Last Filed: 05/14/24 14:44> - General Source: patient, family, RN notes reviewed Mode of arrival: ambulatory Limitations: no limitations <Romario Olsen - Last Filed: 05/14/24 16:10> - General Stated complaint: abd pain Time Seen by Provider: 05/14/24 14:44 - History of Present Illness Initial comments: Quick note: 79-year-old male presented the ER for evaluation of urinary retention. Patient is following up with Dr. Castellanos. Patient states he has had a weak flow over the past couple of days. No fevers. (Alexandria Sapp) Patient is an 79-year-old male present to the emergency department with concern with urinary retention. Patient had his catheter removed 4 days ago. Patient is having difficulty urinating today. Just prior to my evaluation patient did urinate with resolution of his symptoms. Patient did have some suprapubic pressure prior to this. Patient states he is currently symptom-free. (Romario Olsen) - Related Data Home Medications Medication Instructions Recorded Confirmed amLODIPine BESYLATE [Norvasc] 10 mg PO QAM 04/19/14 04/22/24 Insulin Glargine (Lantus) [Lantus 90 unit SQ HS 07/20/19 04/22/24 Vial] INSULIN LISPRO (humaLOG) [humaLOG] 20 - 40 units SQ AC-TID 01/09/20 04/22/24 Atorvastatin [Lipitor] 40 mg PO HS 09/19/22 04/22/24 Omeprazole [PriLOSEC] 20 mg PO BID 11/21/22 04/22/24 Nitroglycerin Sl Tabs [Nitrostat] 0.4 mg SL Q5M PRN 06/18/23 04/22/24 Aspirin 81 mg PO QAM 04/01/24 04/22/24 Ezetimibe [Zetia] 10 mg PO QAM 04/01/24 04/22/24 Isosorbide Mononitrate ER [Imdur] 60 mg PO DAILY 04/22/24 04/22/24 Metoprolol Tartrate [Lopressor] 12.5 mg PO BID 04/22/24 04/22/24 Sennosides/Docusate Sodium [Senna 2 tab PO DAILY PRN 04/22/24 04/22/24 Plus 8.6-50 mg Tablet] Previous Rx's Medication Instructions Recorded Tamsulosin [Flomax] 0.4 mg PO HS 30 Days #30 cap 04/23/24 HYDROcodone/APAP 5-325MG [[place] 1 each PO Q4HR PRN 3 Days #18 tab 04/25/24 5-325] Allergies Allergy/AdvReac Type Severity Reaction Status Date / Time No Known Allergies Allergy Verified 05/14/24 15:00 Review of Systems ROS Other: All systems not noted in ROS Statement are negative. <Alexandria Sapp - Last Filed: 05/14/24 14:44> ROS Other: All systems not noted in ROS Statement are negative. Constitutional: Denies: fever Eyes: Denies: eye pain ENT: Denies: ear pain Cardiovascular: Denies: chest pain Genitourinary: Reports: as per HPI Musculoskeletal: Denies: back pain <Romario Olsen - Last Filed: 05/14/24 16:10> ROS Statement: Those systems with pertinent positive or pertinent negative responses have been documented in the HPI. Past Medical History Past Medical History: Asthma, Coronary Artery Disease (CAD), Chest Pain / Angina, Diabetes Mellitus, GERD/Reflux, Hearing Disorder / Deafness, Hyperlipidemia, Hypertension Additional Past Medical History / Comment(s): IDDM. Hx chronic back pain, chronic pain syndrome. Neuropathy bilateral feet, [place]/uses hearing aids bilaterally. Rash to rt leg -irritation from socks and swelling to ankles. History of Any Multi-Drug Resistant Organisms: None Reported Past Surgical History: Heart Catheterization With Stent, Orthopedic Surgery Additional Past Surgical History / Comment(s): trigger 2nd digit left hand 10-12-20, trigger finger release rt hand,Cervical fusion, back lami/injections, neck sx, carpal tunnel surgery, colonoscopy/benign polypectomy. 3 stents placed 05/2021 and 04/2023. total of 5 heart caths. Past Anesthesia/Blood Transfusion Reactions: No Reported Reaction Additional Past Anesthesia/Blood Transfusion Reaction / Comment(s): no problems with prior blood transfusion. Date of Last Stent Placement:: May 2023 x3 stent total Past Psychological History: No Psychological Hx Reported Smoking Status: Never smoker Past Alcohol Use History: None Reported Past Drug Use History: None Reported - Past Family History Father Family Medical History: Myocardial Infarction ([place]) Additional Family Medical History / Comment(s): Passed at age 72. Mother Family Medical History: Myocardial Infarction ([place]) Additional Family Medical History / Comment(s): Passed at age 77. Brother(s) Family Medical History: Myocardial Infarction ([place]) Additional Family Medical History / Comment(s): 3 brothers passed from [place] in 50's. Sister(s) Family Medical History: Myocardial Infarction ([place]) Additional Family Medical History / Comment(s): sister 50s <Alexandria Sapp - Last Filed: 05/14/24 14:44> General Exam <Alexandria Sapp - Last Filed: 05/14/24 14:44> Limitations: no limitations General appearance: alert, in no apparent distress Head exam: Present: normocephalic Eye exam: Present: normal appearance Neck exam: Present: other (Cervical collar in place) Respiratory exam: Present: normal lung sounds bilaterally Cardiovascular Exam: Present: regular rate, normal rhythm GI/Abdominal exam: Present: soft. Absent: tenderness exam: Present: normal inspection. Absent: testicular tenderness Neurological exam: Present: alert Psychiatric exam: Present: normal affect, normal mood Skin exam: Present: normal color <Romario Olsen - Last Filed: 05/14/24 16:10> - General Exam Comments Initial Comments: Visual Physical Exam Vital signs reviewed General: Well-appearing, nontoxic, no acute distress. Head: Normocephalic, atraumatic Eyes: PERRLA, EOMI ENT: Airway patent Chest: Nonlabored breathing Skin: No visual rash, normal skin tone Neuro: Alert and oriented 3 Musculoskeletal: No gross abnormalities (Alexandria Sapp) Course Vital Signs 05/14/24 14:56 Temperature 98.5 F Pulse Rate 73 Respiratory 18 Rate Blood Pressure 127/60 O2 Sat by Pulse 96 Oximetry Medical Decision Making <Alexandria Sapp - Last Filed: 05/14/24 14:44> <Romario Olsen - Last Filed: 05/14/24 16:10> - Medical Decision Making I performed the quick note portion of this chart. Electronically signed by Alexandria Sapp PA-C (Alexandria aSpp) Was pt. sent in by a medical professional or institution ([facility], [employer], urgent care, hospital, or usp...) When possible be specific @ -No Did you speak to anyone other than the patient for history (EMS, parent, family, police, friend...)? What history was obtained from this source @ - is present and helps provide additional history of having cervical fusion done a few weeks ago Did you review nursing and triage notes (agree or disagree)? Why? @ -I reviewed and agree with nursing and triage notes Were old charts reviewed (outside hosp., previous admission, EMS record, old EKG, old radiological studies, urgent care reports/EKG's, usp records)? Report findings @ -No old charts were reviewed Differential Diagnosis (chest pain, altered mental status, abdominal pain women, abdominal pain men, vaginal bleeding, weakness, fever, dyspnea, syncope, head ache, dizziness, GI bleed, back pain, seizure, CVA, palpatations, mental health, musculoskeletal)? @ -Differential Abdominal Pain Men: Appendicitis, cholecystitis, diverticulosis, ischemic bowel, pancreatitis, hepatitis, UTI, gastroenteritis, AAA, incarcerated hernia, bowel obstruction, constipation, inflammatory bowel, hepatitis, peptic ulcer disease, splenic infarction, perforated viscus, testicular torsion, this is not meant to be an all-inclusive list EKG interpreted by me (3pts min.). @ -As above X-rays interpreted by me (1pt min.). @ -None done CT interpreted by me (1pt min.). @ -None done U/S interpreted by me (1pt. min.). @ -None done What testing was considered but not performed or refused? (CT, X-rays, U/S, labs)? Why? @ -None What meds were considered but not given or refused? Why? @ -None Did you discuss the management of the patient with other professionals (professionals i.e. [facility], [employer], lab, RT, psych nurse, social work nurse, family lawyer, teacher, tax compliance officer, manager of case management)? Give summary @ -No Was smoking cessation discussed for >3mins.? @ -No Was critical care preformed (if so, how long)? @ -No Were there social determinants of health that impacted care today? How? (Homelessness, low income, unemployed, alcoholism, drug addiction, transportation, low edu. Level, literacy, decrease access to med. care, halfway, rehab)? @ -No Was there de-escalation of care discussed even if they declined (Discuss DNR or withdrawal of care, Hospice)? DNR status @ -No What co-morbidities impacted this encounter? (DM, HTN, Smoking, COPD, CAD, Cancer, CVA, ARF, Chemo, Hep., AIDS, mental health diagnosis, sleep apnea, morbid obesity)? @ -History of recent cervical fusion with problems with urination following this. Patient did have catheter placed and removed just a few days ago. Was patient admitted / discharged? Hospital course, mention meds given and route, prescriptions, significant lab abnormalities, going to OR and other pertinent info. @ -Patient presents with urinary retention. Patient is able to urinate in emergency department. Repeat bladder scan with 144. Patient is symptom-free and refuses Kramer catheter. Patient states he does have an appointment with his urologist on Friday and will keep that Undiagnosed new problem with uncertain prognosis? @ -No Drug Therapy requiring intensive monitoring for toxicity (Heparin, Nitro, Insulin, Cardizem)? @ -No Were any procedures done? @ -No Diagnosis/symptom? @ -Urinary retention, resolved Acute, or Chronic, or Acute on Chronic? @ -Acute Uncomplicated (without systemic symptoms) or Complicated (systemic symptoms)? @ -Default Side effects of treatment? @ -No Exacerbation, Progression, or Severe Exacerbation? @ -No Poses a threat to life or bodily function? How? (Chest pain, [place], [place], pneumonia, PE, COPD, DKA, ARF, appy, cholecystitis, CVA, Diverticulitis, Homicidal, Suicidal, threat to staff... and all critical care pts) @ -No (Romario Olsen) Disposition <Alexandria Sapp - Last Filed: 05/14/24 14:44> Is patient prescribed a controlled substance at d/c from ED?: No Time of Disposition: 16:10 <Romario Olsen - Last Filed: 05/14/24 16:10> Clinical Impression: Urinary retention Disposition: HOME SELF-CARE Condition: Stable Instructions (If sedation given, give patient instructions): Urinary Retention in Men (ED) Additional Instructions: Please follow-up with your urologist Friday as planned. Please do also follow- up with your primary care physician and surgeon. Return for unable to urinate, abdominal discomfort, fever, worsening or changing symptoms or any other concerns. Referrals: Pete Fountain MD [Primary Care Provider] - 1-2 days
[2024-05-14 15:00] VITALS: RESP 18; TEMP 98.5
[2024-05-14 16:33] VITALS: BP 145/77; PULSE 67
== END 2024-05-14 16:33 | disposition home or self-care (01) ==
LOC: EC 14:35
DX: R33.9 Retention of urine, unspecified (principal)
CPT/HCPCS: 51798; 99284

== ENCOUNTER 2024-05-16 13:31 | Emergency (ER) | payer MEDICARE ==
--- NOTE | 2024-05-16 13:40 | ED ---
Male Urogenital HPI - General Chief complaint: Urogenital Stated complaint: Urogenital issues Time Seen by Provider: 05/16/24 13:38 Source: patient, family, RN notes reviewed Mode of arrival: ambulatory Limitations: no limitations - History of Present Illness Initial comments: 79-year-old male presenting to the emergency department for complaint of urinary retention. States that he has been unable to urinate over the past few hours. This is a recurrent issue for the patient he was in the emergency department on Friday with similar symptoms however since he was in the emergency department he was able to urinate and was discharged home in stable condition. Patient has no ointment scheduled with his urologist, Dr. Castellanos, tomorrow. Earlier this morning patient endorses postvoid burning. Denies hematuria, flank pain, nausea, vomiting, fevers, chills. - Related Data Home Medications Medication Instructions Recorded Confirmed amLODIPine BESYLATE [Norvasc] 10 mg PO QAM 04/19/14 04/22/24 Insulin Glargine (Lantus) [Lantus 90 unit SQ HS 07/20/19 04/22/24 Vial] INSULIN LISPRO (humaLOG) [humaLOG] 20 - 40 units SQ AC-TID 01/09/20 04/22/24 Atorvastatin [Lipitor] 40 mg PO HS 09/19/22 04/22/24 Omeprazole [PriLOSEC] 20 mg PO BID 11/21/22 04/22/24 Nitroglycerin Sl Tabs [Nitrostat] 0.4 mg SL Q5M PRN 06/18/23 04/22/24 Aspirin 81 mg PO QAM 04/01/24 04/22/24 Ezetimibe [Zetia] 10 mg PO QAM 04/01/24 04/22/24 Isosorbide Mononitrate ER [Imdur] 60 mg PO DAILY 04/22/24 04/22/24 Metoprolol Tartrate [Lopressor] 12.5 mg PO BID 04/22/24 04/22/24 Sennosides/Docusate Sodium [Senna 2 tab PO DAILY PRN 04/22/24 04/22/24 Plus 8.6-50 mg Tablet] Previous Rx's Medication Instructions Recorded Tamsulosin [Flomax] 0.4 mg PO HS 30 Days #30 cap 04/23/24 HYDROcodone/APAP 5-325MG [[place] 1 each PO Q4HR PRN 3 Days #18 tab 04/25/24 5-325] Allergies Allergy/AdvReac Type Severity Reaction Status Date / Time oxycodone Allergy Hallucinati Verified 05/16/24 13:37 ons Review of Systems ROS Statement: Those systems with pertinent positive or pertinent negative responses have been documented in the HPI. ROS Other: All systems not noted in ROS Statement are negative. Past Medical History Past Medical History: Asthma, Coronary Artery Disease (CAD), Chest Pain / Angina, Diabetes Mellitus, GERD/Reflux, Hearing Disorder / Deafness, Hyperlipidemia, Hypertension Additional Past Medical History / Comment(s): IDDM. Hx chronic back pain, chronic pain syndrome. Neuropathy bilateral feet, SNOQUALMIE/uses hearing aids bilaterally. Rash to rt leg -irritation from socks and swelling to ankles. History of Any Multi-Drug Resistant Organisms: None Reported Past Surgical History: Heart Catheterization With Stent, Orthopedic Surgery Additional Past Surgical History / Comment(s): trigger 2nd digit left hand 10-20, trigger finger release rt hand,Cervical fusion, back lami/injections, neck sx, carpal tunnel surgery, colonoscopy/benign polypectomy. 3 stents placed 05/2021 and 04/2023. total of 5 heart caths. Past Anesthesia/Blood Transfusion Reactions: No Reported Reaction Additional Past Anesthesia/Blood Transfusion Reaction / Comment(s): no problems with prior blood transfusion. Date of Last Stent Placement:: May 2023 x3 stent total Past Psychological History: No Psychological Hx Reported Smoking Status: Never smoker Past Alcohol Use History: None Reported Past Drug Use History: None Reported - Past Family History Father Family Medical History: Myocardial Infarction (NH) Additional Family Medical History / Comment(s): Passed at age 72. Mother Family Medical History: Myocardial Infarction (NH) Additional Family Medical History / Comment(s): Passed at age 77. Brother(s) Family Medical History: Myocardial Infarction (NH) Additional Family Medical History / Comment(s): 3 brothers passed from NH in 50's. Sister(s) Family Medical History: Myocardial Infarction (NH) Additional Family Medical History / Comment(s): sister 50s General Exam Limitations: no limitations General appearance: alert, in no apparent distress Neck exam: Present: normal inspection. Absent: tenderness, meningismus, lymph adenopathy Respiratory exam: Present: normal lung sounds bilaterally. Absent: respiratory distress, wheezes, rales, rhonchi, stridor Cardiovascular Exam: Present: regular rate, normal rhythm, normal heart sounds. Absent: systolic murmur, diastolic murmur, rubs, gallop, clicks GI/Abdominal exam: Present: soft, tenderness (suprapubic to palpation), normal bowel sounds. Absent: distended, guarding, rebound, rigid Back exam: Present: normal inspection. Absent: CVA tenderness (R), CVA tenderness (L) Course Vital Signs 05/16/24 13:35 Temperature 97.6 F Pulse Rate 80 Respiratory 16 Rate Blood Pressure 169/82 O2 Sat by Pulse 94 L Oximetry Medical Decision Making - Medical Decision Making Was pt. sent in by a medical professional or institution (, PA, DOG BEAUTICIAN, urgent care, hospital, or retirement...) When possible be specific @ -No Did you speak to anyone other than the patient for history (EMS, parent, family, police, friend...)? What history was obtained from this source @ -No Did you review nursing and triage notes (agree or disagree)? Why? @ -I reviewed and agree with nursing and triage notes Were old charts reviewed (outside hosp., previous admission, EMS record, old EKG, old radiological studies, urgent care reports/EKG's, retirement records)? Report findings @ -No old charts were reviewed Differential Diagnosis (chest pain, altered mental status, abdominal pain women, abdominal pain men, vaginal bleeding, weakness, fever, dyspnea, syncope, headache, dizziness, GI bleed, back pain, seizure, CVA, palpatations, mental health, musculoskeletal)? @ -Differential Abdominal Pain Men: Appendicitis, cholecystitis, diverticulosis, ischemic bowel, pancreatitis, hepatitis, UTI, gastroenteritis, AAA, incarcerated hernia, bowel obstruction, constipation, inflammatory bowel, hepatitis, peptic ulcer disease, splenic infarction, perforated viscus, testicular torsion, this is not meant to be an all-inclusive list EKG interpreted by me (3pts min.). @ -None X-rays interpreted by me (1pt min.). @ -None done CT interpreted by me (1pt min.). @ -None done U/S interpreted by me (1pt. min.). @ -None done What testing was considered but not performed or refused? (CT, X-rays, U/S, labs)? Why? @ -None What meds were considered but not given or refused? Why? @ -None Did you discuss the management of the patient with other professionals (professionals i.e. , PA, DOG BEAUTICIAN, lab, RT, psych nurse, medical social worker, food and drug inspector, teacher, landcare officer, renal case manager)? Give summary @ -No Was smoking cessation discussed for >3mins.? @ -No Was critical care preformed (if so, how long)? @ -No Were there social determinants of health that impacted care today? How? (Homelessness, low income, unemployed, alcoholism, drug addiction, transportation, low edu. Level, literacy, decrease access to med. care, fpc, rehab)? @ -No Was there de-escalation of care discussed even if they declined (Discuss DNR or withdrawal of care, Hospice)? DNR status @ -No What co-morbidities impacted this encounter? (DM, HTN, Smoking, COPD, CAD, Cancer, CVA, ARF, Chemo, Hep., AIDS, mental health diagnosis, sleep apnea, morbid obesity)? @ -None Was patient admitted / discharged? Hospital course, mention meds given and route, prescriptions, significant lab abnormalities, going to OR and other pertinent info. @ -Discharge. 79-year-old male presenting with urinary retention. Abdominal examination markable for severe tenderness palpation with mild distention. Nursing staff completed bladder scan at bedside remarkable for 354 mL. Reevaluation nursing staff stated that patient was able to urinate on his own with no assistance of a catheter. Urinalysis unremarkable. His patient was able to void on his own no necessity for catheter at this time. Additionally, suprapubic tenderness has resolved post urination. Appointment scheduled tomorrow with urology. Return parameters discussed. Case discussed with Dr. Mireles Undiagnosed new problem with uncertain prognosis? @ -No Drug Therapy requiring intensive monitoring for toxicity (Heparin, Nitro, Insulin, Cardizem)? @ -No Were any procedures done? @ -No Diagnosis/symptom? @ -urinary retention Acute, or Chronic, or Acute on Chronic? @ -acute Uncomplicated (without systemic symptoms) or Complicated (systemic symptoms)? @ -uncomplicated Side effects of treatment? @ -No Exacerbation, Progression, or Severe Exacerbation? @ -No Poses a threat to life or bodily function? How? (Chest pain, [place], NH, pneumonia, PE, COPD, DKA, ARF, appy, cholecystitis, CVA, Diverticulitis, Homicidal, Suicidal, threat to staff... and all critical care pts) @ -No - Lab Data Lab Results 05/16/24 Range/Units 14:24 Urine Color Colorless Urine Appearance Clear (Clear) Urine pH 6.5 (5.0-8.0) Ur Specific [place] 1.007 (1.001-1.035) Urine Protein Negative (Negative) Urine Glucose (UA) Negative (Negative) Urine Ketones Negative (Negative) Urine Blood Negative (Negative) Urine Nitrite Negative (Negative) Urine Bilirubin Negative (Negative) Urine Urobilinogen <2.0 (<2.0) mg/dL Ur Leukocyte Esterase Negative (Negative) Disposition Clinical Impression: Urinary retention Disposition: HOME SELF-CARE Condition: Good Instructions (If sedation given, give patient instructions): Urinary Retention in Men (ED) Additional Instructions: Please return to the Emergency Department if symptoms worsen or any other concerns. Follow-up as scheduled tomorrow with urology for further evaluation. Is patient prescribed a controlled substance at d/c from ED?: No Referrals: Pete Fountain MD [Primary Care Provider] - 1-2 days Time of Disposition: 14:44
[2024-05-16 14:30] LABS: Appearance,Urine Clear (Clear); Bilirubin,Urine Negative (Negative); Blood,Urine Negative (Negative); Color,Urine Colorless; Glucose,Urine (UA) Negative (Negative); Ketones,Urine Negative (Negative); Leukocyte Esterase,Urine Negative (Negative); Nitrite,Urine Negative (Negative); PH, Urine 6.5 (5.0-8.0); Protein,Urine Negative (Negative); Specific Gravity,Urine 1.007 (1.001-1.035); Urobilinogen,Urine <2.0 mg/dL (<2.0)
[2024-05-16 15:02] VITALS: BP 154/89; PULSE 81; RESP 18; TEMP 97.8
== END 2024-05-16 15:02 | disposition home or self-care (01) ==
LOC: EC 13:31
DX: R33.9 Retention of urine, unspecified (principal); Z88.8 Allergy status to other drugs, medicaments and biological substances
CPT/HCPCS: 51798; 81003; 99284

== ENCOUNTER → 2024-05-24 | Outpatient (CLI) | payer MEDICARE ==
[2024-05-24 15:28] LABS: African American GFR (CKD) 70 (>60 ml/min/1.73 sqM); Blood Urea Nitrogen 28 mg/dL (9-20); Non-African American GFR(CKD) 61 (>60 ml/min/1.73 sqM)
--- NOTE | 2024-05-24 16:16 | CT ---
EXAMINATION TYPE: CT abdomen w con CT DLP: 1722.2 mGycm, Automated exposure control for dose reduction was used. DATE OF EXAM: 05/24/2024 4:05 PM COMPARISON: CT chest abdomen pelvis 12/05/2020, CT abdomen and pelvis 01/09/2020 CLINICAL INDICATION:Male, 79 years old with history of N28.1 CYST OF KIDNEY; Kidney cyst. TECHNIQUE: Standard CT of the abdomen following the administration of 100 cc of Isovue 300 IV contr ast material and oral contrast. Coronal and sagittal reformats were performed. FINDINGS: LOWER CHEST: Posterior dependent subsegmental atelectasis is noted. Mild cardiomegaly. Moderate coron handy atherosclerotic calcifications. No pericardial effusion. ABDOMEN LIVER: Unremarkable GALLBLADDER AND BILE DUCTS: Layering increased densities within the lumen consistent with gallstones are present. No biliary ductal dilatation. PANCREAS: Unremarkable. SPLEEN: Nonenlarged. Calcified granuloma. ADRENAL GLANDS: Unremarkable. KIDNEYS AND URETERS: No evidence of hydronephrosis or renal calculus. The kidneys enhance symmetrical ly. Contrast is demonstrated within both collecting systems and proximal ureters on the delayed phase . Mildly complex right mid kidney 1 cm cyst. PELVIS BLADDER: Underdistended with anterior wall thickening measuring up to 9 mm. ABDOMEN & PELVIS STOMACH AND BOWEL: Stomach and duodenum are unremarkable. Enteric contrast reaches the mid small sabrina l. Redundant sigmoid colon. Distal colonic diverticulosis without evidence for acute diverticulitis. No focal bowel wall thickening or surrounding inflammatory changes. The appendix is within normal [place] its. No evidence of bowel obstruction. PERITONEUM: No evidence of pneumoperitoneum or free fluid. VASCULATURE: Mild to moderate atherosclerotic calcifications are present throughout the abdominal aor ta and its branches. No evidence of aortic aneurysm. MUSCULOSKELETAL: No acute osseous abnormalities. Extensive postsurgical changes of the thoracolumbar spine. There is extension into the bilateral iliac bones. Moderate degenerative disease of the mid to lower thoracic spine most pronounced at the T9-T10 level. There is again lucency surrounding the lef t T10 screw which extends somewhat superiorly into the T9-T10 disc space. Probable seroma within the laminectomy bed. LYMPH NODES: No evidence for lymphadenopathy. SOFT TISSUE/ABDOMINAL WALL: Unremarkable IMPRESSION: 1. Mildly complex right mid kidney 1 cm cyst. May represent a proteinaceous/hemorrhagic cyst versus other etiologies. Recommend further evaluation with renal ultrasound. 2. Diverticulosis without evidence for acute diverticulitis. 3. Anterior urinary bladder wall thickening with under distention. Probably related to under distenti on versus cystitis. Correlate with urinalysis. 4. Cholelithiasis. 5. Extensive postsurgical changes of the thoracolumbar spine as described above. [facility], , 05/24/2024 4:13 PM
== END | disposition home or self-care (01) ==
LOC: RADCTMAIN 14:49
PROVIDERS: ATTEND Urology
DX: K80.20 Calculus of gallbladder without cholecystitis without obstruction (principal); K57.30 Diverticulosis of large intestine without perforation or abscess without bleeding; N28.1 Cyst of kidney, acquired; N32.89 Other specified disorders of bladder; Z98.890 Other specified postprocedural states
CPT/HCPCS: 82565; 84520; 74160; 36415; Q9967

== ENCOUNTER 2024-06-19 18:05 | Emergency (ER) | payer MEDICARE ==
--- NOTE | 2024-06-19 18:37 | ED ---
General Adult HPI - General Chief complaint: Extremity Problem,Nontraumatic Stated complaint: R Arm Pain Time Seen by Provider: 06/19/24 18:21 Source: patient, RN notes reviewed Mode of arrival: wheelchair Limitations: no limitations - History of Present Illness Initial comments: This is an 79-year-old male with history including CAD, stents, hypertension, hyperlipidemia, DM and cervical spine surgery 8 weeks ago presenting with right upper extremity pain (10/) x 3 weeks. Patient states pain worsens with movement of arm/hand, especially forearm and hand/fingers. Patient states he had cervical spine surgery performed by Dr. Araujo on 04/13/2024 with upcoming appointment next week on 06/23/2024. States he was advised to wear a cervical collar whenever possible since that time, which he has been doing. Patient endorses concern for blood clot in upper extremity. Denies fever, chills, hemiplegia, dysarthria, ataxia, chest pain, dyspnea, abdominal pain, N/V/D. Onset/Timin -: week(s) Location: right, upper extremity Radiation: distal Severity scale (1-10): 10 Quality: aching Consistency: constant Worsens with: movement Associated Symptoms: diaphoresis - Related Data Home Medications Medication Instructions Recorded Confirmed amLODIPine BESYLATE [Norvasc] 10 mg PO QAM 04/19/14 04/22/24 Insulin Glargine (Lantus) [Lantus 90 unit SQ HS 07/20/19 04/22/24 Vial] INSULIN LISPRO (humaLOG) [humaLOG] 20 - 40 units SQ AC-TID 01/09/20 04/22/24 Atorvastatin [Lipitor] 40 mg PO HS 09/19/22 04/22/24 Omeprazole [PriLOSEC] 20 mg PO BID 11/21/22 04/22/24 Nitroglycerin Sl Tabs [Nitrostat] 0.4 mg SL Q5M PRN 06/18/23 04/22/24 Aspirin 81 mg PO QAM 04/01/24 04/22/24 Ezetimibe [Zetia] 10 mg PO QAM 04/01/24 04/22/24 Isosorbide Mononitrate ER [Imdur] 60 mg PO DAILY 04/22/24 04/22/24 Metoprolol Tartrate [Lopressor] 12.5 mg PO BID 04/22/24 04/22/24 Sennosides/Docusate Sodium [Senna 2 tab PO DAILY PRN 04/22/24 04/22/24 Plus 8.6-50 mg Tablet] Previous Rx's Medication Instructions Recorded Tamsulosin [Flomax] 0.4 mg PO HS 30 Days #30 cap 04/23/24 HYDROcodone/APAP 5-325MG [[place] 1 each PO Q4HR PRN 3 Days #18 tab 04/25/24 5-325] predniSONE 50 mg PO DAILY #5 tab 06/19/24 Allergies Allergy/AdvReac Type Severity Reaction Status Date / Time oxycodone Allergy Hallucinati Verified 06/19/24 18:11 ons Review of Systems ROS Statement: Those systems with pertinent positive or pertinent negative responses have been documented in the HPI. ROS Other: All systems not noted in ROS Statement are negative. Past Medical History Past Medical History: Asthma, Coronary Artery Disease (CAD), Chest Pain / Angina, Diabetes Mellitus, GERD/Reflux, Hearing Disorder / Deafness, Hy perlipidemia, Hypertension Additional Past Medical History / Comment(s): IDDM. Hx chronic back pain, chronic pain syndrome. Neuropathy bilateral feet, ALEK[place]GIK/uses hearing aids b ilaterally. Rash to rt leg -irritation from socks and swelling to ankles. History of Any Multi-Drug Resistant Organisms: None Reported Past Surgical History: Heart Catheterization With Stent, Orthopedic Surgery Additional Past Surgical History / Comment(s): trigger 2nd digit left hand 10-12-20, trigger finger release rt hand,Cervical fusion, back lami/injections, neck sx, carpal tunnel surgery, colonoscopy/benign polypectomy. 3 stents placed 05/2021 and 04/2023. total of 5 heart caths. Past Anesthesia/Blood Transfusion Reactions: No Reported Reaction Additional Past Anesthesia/Blood Transfusion Reaction / Comment(s): no problems with prior blood transfusion. Date of Last Stent Placement:: May 2023 x3 stent total Past Psychological History: No Psychological Hx Reported Smoking Status: Never smoker Past Alcohol Use History: None Reported Past Drug Use History: None Reported - Past Family History Father Family Medical History: Myocardial Infarction ([place]) Additional Family Medical History / Comment(s): Passed at age 72. Mother Family Medical History: Myocardial Infarction ([place]) Additional Family Medical History / Comment(s): Passed at age 77. Brother(s) Family Medical History: Myocardial Infarction ([place]) Additional Family Medical History / Comment(s): 3 brothers passed from [place] in 50's. Sister(s) Family Medical History: Myocardial Infarction ([place]) Additional Family Medical History / Comment(s): sister 50s General Exam Limitations: no limitations General appearance: alert, in distress, other (Patient in cervical collar. Advised by Dr. Araujo to wear cervical collar following surgery which he has been doing for the past 8 weeks) Head exam: Present: atraumatic, normocephalic, normal inspection Eye exam: Present: normal appearance, PERRL, EOMI. Absent: scleral icterus, conjunctival injection, periorbital swelling ENT exam: Present: normal exam, mucous membranes moist Neck exam: Present: normal inspection. Absent: tenderness, meningismus, lymphadenopathy Respiratory exam: Present: normal lung sounds bilaterally. Absent: respiratory distress, wheezes, rales, rhonchi, stridor, accessory muscle use, decreased breath sounds, prolonged expiratory Cardiovascular Exam: Present: regular rate, normal rhythm, normal heart sounds. Absent: systolic murmur, diastolic murmur, rubs, gallop, clicks GI/Abdominal exam: Present: soft, normal bowel sounds. Absent: distended, tenderness, guarding, rebound, rigid Extremities exam: Present: full ROM, normal capillary refill. Absent: tenderness, pedal edema, joint swelling, calf tenderness Right Shoulder Exam: Present: normal inspection, full ROM Upper Arm exam: Present: normal inspection, full ROM Elbow exam: Present: normal inspection, full ROM. Absent: tenderness, swelling, erythema Forearm Wrist exam: Present: normal inspection, full ROM, other (Normal sensation in forearm). Absent: tenderness, swelling, erythema Hand Wrist exam: Present: full ROM, other (Patient notes paresthesia on radial and ulnar aspect of right hand. [place] strength 5/5 with left recovery agent being slightly stronger than right recovery agent). Absent: tenderness, swelling, ecchymosis, erythema Vascular: Present: normal capillary refill, radial pulse (2+ bilaterally) Back exam: Present: normal inspection Neurological exam: Present: alert, oriented X3, CN II-XII intact Psychiatric exam: Present: normal affect, normal mood Skin exam: Present: warm, dry, intact, normal color. Absent: rash Course Vital Signs 06/19/24 06/19/24 18:06 20:59 Temperature 97.5 F L 98.3 F Pulse Rate 73 66 Respiratory 17 20 Rate Blood Pressure 146/71 141/71 O2 Sat by Pulse 97 96 Oximetry Medical Decision Making - Medical Decision Making Was pt. sent in by a medical professional or institution (, PA, ENGRAVER LETTER, urgent care, hospital, or long term...) When possible be specific @ -No Did you speak to anyone other than the patient for history (EMS, parent, family, police, friend...)? What history was obtained from this source @ -No Did you review nursing and triage notes (agree or disagree)? Why? @ -I reviewed and agree with nursing and triage notes Were old charts reviewed (outside hosp., previous admission, EMS record, old EKG , old radiological studies, urgent care reports/EKG's, long term records)? Report findings @ -No old charts were reviewed Differential Diagnosis (chest pain, altered mental status, abdominal pain women, abdominal pain men, vaginal bleeding, weakness, fever, dyspnea, syncope, headache, dizziness, GI bleed, back pain, seizure, CVA, palpatations, mental health, musculoskeletal)? @ -Differential Chest Pain: Stable Angina, Unstable Angina, STEMI, NSTEMI Aortic Dissection, Pneumothorax, Musculoskeletal, Esophageal Spasm GERD, Cholecystitis, Pancreatitis, Zoster, this is not meant to be an all-inclusive list. Differential Musculoskeletal Muscular strain, contusion, ligament sprain, fracture, arthritis, septic arthritis, bursitis, cellulitis, muscle spasm, nerve compression, DVT, arterial occlusion, herpes zoster, electrolyte abnormality, tumor.... This is not meant to be in all inclusive list EKG interpreted by me (3pts min.). @ -Sinus rhythm without ST deviation or T wave inversion. Ventricular rate 69 bpm, KHADRA 160 ms, QRS 100 ms, QTc 410 ms. X-rays interpreted by me (1pt min.). @ -CXR shows no acute cardiopulmonary process. Cervical spine x-ray shows no hardware abnormality or acute osseous abnormality. CT interpreted by me (1pt min.). @ -None done U/S interpreted by me (1pt. min.). @ -RUE Doppler ultrasound shows no evidence for DVT. What testing was considered but not performed or refused? (CT, X-rays, U/S, labs)? Why? @ -None What meds were considered but not given or refused? Why? @ -None Did you discuss the management of the patient with other professionals (professionals i.e. , PA, ENGRAVER LETTER, lab, RT, psych nurse, social security specialist, dog or horse racing official, teacher, senior credit officer, briefcase sewer)? Give summary @ -No Was smoking cessation discussed for >3mins.? @ -No Was critical care preformed (if so, how long)? @ -No Were there social determinants of health that impacted care today? How? (Homelessness, low income, unemployed, alcoholism, drug addiction, transportation, low edu. Level, literacy, decrease access to med. care, [facility], rehab)? @ -No Was there de-escalation of care discussed even if they declined (Discuss DNR or withdrawal of care, Hospice)? DNR status @ -No What co-morbidities impacted this encounter? (DM, HTN, Smoking, COPD, CAD, Cancer, CVA, ARF, Chemo, Hep., AIDS, mental health diagnosis, sleep apnea, morbid obesity)? @ -None Was patient admitted / discharged? Hospital course, mention meds given and route, prescriptions, significant lab abnormalities, going to OR and other pertinent info. @ -Lab work shows stable iron deficient anemia and hyperglycemia 200. CXR shows no acute cardiopulmonary process. Cervical spine x-ray shows no hardware abnormality or acute osseous abnormality. RUE Doppler ultrasound shows no evidence for DVT. Patient provided IV Dilaudid with pain going from 10/10 to 4/10. Prednisone sent to patient's pharmacy. Advised continue [place] use and follow-up with orthopedic appointment later this week. Discussed patient with Dr. Garcia. Undiagnosed new problem with uncertain prognosis? @ -No Drug Therapy requiring intensive monitoring for toxicity (Heparin, Nitro, Insulin, Cardizem)? @ -No Were any procedures done? @ -No Diagnosis/symptom? @ -Cervical radiculopathy Acute, or Chronic, or Acute on Chronic? @ -Acute Uncomplicated (without systemic symptoms) or Complicated (systemic symptoms)? @ -Complicated Side effects of treatment? @ -No Exacerbation, Progression, or Severe Exacerbation? @ -No Poses a threat to life or bodily function? How? (Chest pain, [place], [place], pneumonia, PE, COPD, DKA, ARF, appy, cholecystitis, CVA, Diverticulitis, Homicidal, Suici mounika, threat to staff... and all critical care pts) @ -No - Lab Data Result diagrams: 06/19/24 18:37 06/19/24 18:37 Lab Results 06/19/24 06/19/24 06/19/24 Range/Units 18:37 18:37 18:37 WBC 6.58 (4.50-10.00) 10*3/uL RBC 4.58 (4.40-5.60) 10*6/uL Hgb 11.8 L (13.0-17.0) g/dL Hct 36.4 L (39.6-50.0) % MCV 79.5 L (80.0-97.0) fL MCH 25.8 L (27.0-32.0) pg MCHC 32.4 (32.0-37.0) g/dL Plt Count 407 (140-440) 10*3/uL MPV 9.7 (9.5-12.2) fL Immature Gran % (Auto) 0.5 % Neutrophils % 52.8 % Lymphocytes % 28.3 % Monocytes % 10.2 % Eosinophils % 6.8 % Basophils % 1.4 % Immature Gran # 0.03 (0.00-0.04) 10*3/uL Neutrophils # 3.48 (1.80-7.70) 10*3/uL Lymphocytes # 1.86 (0.90-5.00) 10*3/uL Monocytes # 0.67 (0.20-1.00) 10*3/uL Eosinophils # 0.45 H (0.04-0.35) 10*3/uL Basophils # 0.09 (0.00-0.10) 10*3/uL PT 10.6 (10.0-12.5) sec INR 0.9 (<1.2) APTT 23.4 (22.0-30.0) sec Sodium 136 L (137-145) mmol/L Potassium 4.5 (3.5-5.1) mmol/L Chloride 100 (98-107) mmol/L Carbon Dioxide 27 (22-30) mmol/L Anion Gap 9 mmol/L BUN 17 (9-20) mg/dL Creatinine 1.00 (0.66-1.25) mg/dL Est GFR (CKD-EPI)AfAm 82 (>60 ml/min/1.73 sqM) Est GFR (CKD-EPI)NonAf 71 (>60 ml/min/1.73 sqM) Glucose 200 H (74-99) mg/dL Calcium 9.8 (8.4-10.2) mg/dL Magnesium 1.8 (1.6-2.3) mg/dL Total Bilirubin 0.5 (0.2-1.3) mg/dL AST 21 (17-59) U/L ALT 19 (4-49) U/L Alkaline Phosphatase 108 (38-126) U/L Troponin I (0.000-0.034) ng/mL Total Protein 6.9 (6.3-8.2) g/dL Albumin 4.2 (3.5-5.0) g/dL 06/19/24 Range/Units 18:37 WBC (4.50-10.00) 10*3/uL RBC (4.40-5.60) 10*6/uL Hgb (13.0-17.0) g/dL Hct (39.6-50.0) % MCV (80.0-97.0) fL MCH (27.0-32.0) pg MCHC (32.0-37.0) g/dL Plt Count (140-440) 10*3/uL MPV (9.5-12.2) fL Immature Gran % (Auto) % Neutrophils % % Lymphocytes % % Monocytes % % Eosinophils % % Basophils % % Immature Gran # (0.00-0.04) 10*3/uL Neutrophils # (1.80-7.70) 10*3/uL Lymphocytes # (0.90-5.00) 10*3/uL Monocytes # (0.20-1.00) 10*3/uL Eosinophils # (0.04-0.35) 10*3/uL Basophils # (0.00-0.10) 10*3/uL PT (10.0-12.5) sec INR (<1.2) APTT (22.0-30.0) sec Sodium (137-145) mmol/L Potassium (3.5-5.1) mmol/L Chloride (98-107) mmol/L Carbon Dioxide (22-30) mmol/L Anion Gap mmol/L BUN (9-20) mg/dL Creatinine (0.66-1.25) mg/dL Est GFR (CKD-EPI)AfAm (>60 ml/min/1.73 sqM) Est GFR (CKD-EPI)NonAf (>60 ml/min/1.73 sqM) Glucose (74-99) mg/dL Calcium (8.4-10.2) mg/dL Magnesium (1.6-2.3) mg/dL Total Bilirubin (0.2-1.3) mg/dL AST (17-59) U/L ALT (4-49) U/L Alkaline Phosphatase (38-126) U/L Troponin I <0.012 (0.000-0.034) ng/mL Total Protein (6.3-8.2) g/dL Albumin (3.5-5.0) g/dL Disposition Clinical Impression: Cervical radiculopathy Disposition: HOME SELF-CARE Condition: Good Instructions (If sedation given, give patient instructions): Cervical Radiculopathy (ED) Additional Instructions: Continue [place] use as previously directed. Follow-up with orthopedic appointment on Friday for ongoing care. Prescriptions: predniSONE 50 mg PO DAILY #5 tab Is patient prescribed a controlled substance at d/c from ED?: No Referrals: Pete Fountain MD [Primary Care Provider] - 1-2 days Time of Disposition: 20:25
[2024-06-19] MEDS: HYDROmorphone 1 MG/ML 1 ML SYRINGE IVP STA (18:40)
[2024-06-19 18:57] LABS: Basophils # (A) 0.09 10*3/uL (0.00-0.10); Basophils % (A) 1.4 %; Eosinophils # (A) 0.45 10*3/uL (0.04-0.35); Eosinophils % (A) 6.8 %; HCT 36.4 % (39.6-50.0); HGB 11.8 g/dL (13.0-17.0); Lymphocytes # (A) 1.86 10*3/uL (0.90-5.00); Lymphocytes % (A) 28.3 %; MCH 25.8 pg (27.0-32.0); MCHC 32.4 g/dL (32.0-37.0); MCV 79.5 fL (80.0-97.0); Mean Platelet Volume 9.7 fL (9.5-12.2); Monocytes # (A) 0.67 10*3/uL (0.20-1.00); Monocytes % (A) 10.2 %; Neutrophils # (A) 3.48 10*3/uL (1.80-7.70); Neutrophils % (A) 52.8 %; Platelet Count 407 10*3/uL (140-440); RBC 4.58 10*6/uL (4.40-5.60); RDW 17.6 % (11.5-14.5); WBC 6.58 10*3/uL (4.50-10.00)
--- NOTE | 2024-06-19 19:04 | XR ---
EXAMINATION TYPE: XR chest 2V DATE OF EXAM: 06/19/2024 7:00 PM COMPARISON: Multiple prior chest radiograph, most recently dated 04/21/2024. CLINICAL INDICATION: Male, 79 years old with history of Chest Pain; [facility] TECHNIQUE: XR chest 2V Frontal and lateral views of the chest. FINDINGS: Lungs/Pleura: There is no evidence of pleural effusion, focal consolidation, or pneumothorax. Mild l eft lung base atelectasis. Pulmonary vascularity: Unremarkable. Heart/mediastinum: Cardiomegaly. Musculoskeletal: No acute osseous pathology. Fusion hardware in the partially visualized thoracolumba r and cervical spine. Other findings: None IMPRESSION: No acute cardiopulmonary disease/process. [facility], , 06/19/2024 7:02 PM
[2024-06-19 19:06] LABS: INR 0.9 (<1.2)
[2024-06-19 19:07] LABS: Partial Thromboplastin Time 23.4 sec (22.0-30.0); Prothrombin Time 10.6 sec (10.0-12.5)
[2024-06-19 19:08] LABS: ALT 19 U/L (4-49); AST 21 U/L (17-59); African American GFR (CKD) 82 (>60 ml/min/1.73 sqM); Albumin 4.2 g/dL (3.5-5.0); Alkaline Phosphatase 108 U/L (38-126); Anion Gap 9 mmol/L; Blood Urea Nitrogen 17 mg/dL (9-20); Calcium 9.8 mg/dL (8.4-10.2); Carbon Dioxide 27 mmol/L (22-30); Chloride 100 mmol/L (98-107); Glucose 200 mg/dL (74-99); Magnesium 1.8 mg/dL (1.6-2.3); Non-African American GFR(CKD) 71 (>60 ml/min/1.73 sqM); Potassium 4.5 mmol/L (3.5-5.1); Sodium 136 mmol/L (137-145); Total Bilirubin 0.5 mg/dL (0.2-1.3); Total Protein 6.9 g/dL (6.3-8.2)
--- NOTE | 2024-06-19 19:08 | XR ---
EXAMINATION TYPE: XR cervical spine comp DATE OF EXAM: 06/19/2024 7:00 PM COMPARISON: Prior radiographs, most recently dated 08/13/2021. CLINICAL INDICATION: Male, 79 years old with history of Neck surgery, RUE pain; PHH, pain TECHNIQUE: The cervical spine was imaged in frontal, lateral, odontoid and bilateral oblique. FINDINGS: Posterior cervical spinal fusion hardware visualized spanning C2-T1. No definite periprosthetic loose jennifer or acute fracture. Intervertebral disc spacer device is noted at C3-C4, C5-C6 and C6-C7. Multile brenda facet arthropathy. IMPRESSION: No acute osseous abnormality or evidence of acute hardware complication. [facility], , 06/19/2024 7:05 PM
--- NOTE | 2024-06-19 19:44 | US ---
EXAMINATION TYPE: US venous doppler duplex UE RT DATE OF EXAM: 06/19/2024 COMPARISON: NONE CLINICAL INDICATION: Male, 79 years old with history of RUE pain, surgery 3 weeks ago; Right arm pain x 3 weeks. Pt had neck surgery in Apr 2024. TECHNIQUE: Grayscale, color Doppler and spectral Doppler imaging of the upper extremity. SIDE PERFORMED: Right VESSELS IMAGED: IJV Subclavian Vein Axilla Vein Brachial Vein(s) Radial Paired Veins Ulnar Paired Veins Cephalic Vein* Basilic Vein* (*superficial vessels) FINDINGS: Right Arm: No evidence for DVT Grayscale, color doppler, spectral doppler imaging performed of the deep veins of the upper extremiti es. IMPRESSION: No evidence for DVT. [facility], , 06/19/2024 7:41 PM
[2024-06-19 21:02] VITALS: BP 141/71; PULSE 66; RESP 20; TEMP 98.3
== END 2024-06-19 21:05 | disposition home or self-care (01) ==
LOC: EC 18:05
DX: M54.12 Radiculopathy, cervical region (principal); E78.5 Hyperlipidemia, unspecified; E11.40 Type 2 diabetes mellitus with diabetic neuropathy, unspecified; I10 Essential (primary) hypertension; I25.10 Atherosclerotic heart disease of native coronary artery without angina pectoris; Z88.5 Allergy status to narcotic agent
CPT/HCPCS: 36415; 93005; 80053; 83735; 84484; 85025; 85610; 85730; 72050; 71046; 93971; 99284; 96374; J1171

== ENCOUNTER 2024-08-23 00:14 | Inpatient (IN) | payer MEDICARE ==
--- NOTE | 2024-08-23 00:18 | ED ---
Chest Pain HPI - General Stated Complaint: chest pain Time Seen by Provider: 08/23/24 00:17 Source: RN notes reviewed, old records reviewed Mode of arrival: ambulatory Limitations: no limitations - History of Present Illness Initial Comments: This is a 79-year-old male to the ER for evaluation abdominal pain chest pain does feel feverish does feel flushed positive nausea no vomiting epigastric abdominal pain with chest pain took nitro felt he was going to pass out became sweaty and short of breath. Patient does have a long history of heart disease with prior stents MD Complaint: chest pain -: hour(s) Onset: during rest, during exertion Pain Location: substernal, left chest Pain Radiation: none Severity: moderate Severity scale (1-10): 5 Consistency: constant Improves With: nothing Worsens With: nothing Anginal Symptoms: nausea, vomiting, diaphoresis, dyspnea, sense of impending doom Other Symptoms: palpitations Treatments Prior to Arrival: none - Related Data Home Medications Medication Instructions Recorded Confirmed amLODIPine BESYLATE [Norvasc] 10 mg PO DAILY 04/19/14 08/23/24 Insulin Glargine (Lantus) [Lantus 70 unit SQ HS 07/20/19 08/23/24 Vial] INSULIN LISPRO (humaLOG) [humaLOG] 15 - 20 units SQ AC-TID 01/09/20 08/23/24 Atorvastatin [Lipitor] 40 mg PO HS 09/19/22 08/23/24 Omeprazole [PriLOSEC] 20 mg PO BID 11/21/22 08/23/24 Nitroglycerin Sl Tabs [Nitrostat] 0.4 mg SL Q5M PRN 06/18/23 08/23/24 Ezetimibe [Zetia] 10 mg PO DAILY 04/01/24 08/23/24 Isosorbide Mononitrate ER [Imdur] 60 mg PO DAILY 04/22/24 08/23/24 Metoprolol Tartrate [Lopressor] 12.5 mg PO BID 04/22/24 08/23/24 HYDROcodone/APAP 5-325MG [[place] 1 tab PO QID 07/07/24 08/23/24 5-325] Pregabalin [Lyrica] 225 mg PO BID 07/07/24 08/23/24 Cyclobenzaprine [Flexeril] 5 mg PO HS PRN 08/23/24 08/23/24 Previous Rx's Medication Instructions Recorded Tamsulosin [Flomax] 0.4 mg PO HS 30 Days #30 cap 04/23/24 Aspirin 81 mg PO DAILY 30 Days #30 tab 07/07/24 Ticagrelor [Brilinta] 90 mg PO BID 30 Days #60 tab 08/25/24 Allergies Allergy/AdvReac Type Severity Reaction Status Date / Time oxycodone AdvReac Hallucinati Verified 08/23/24 09:15 ons Review of Systems ROS Statement: Those systems with pertinent positive or pertinent negative responses have been documented in the HPI. ROS Other: All systems not noted in ROS Statement are negative. EKG Findings - EKG Comments: EKG Findings:: EKG sinus 79 MD 214 QRS 87 QTc 376. Repeat. EKG is sinus 94 MD 198 QRS 97 QTc 392 Past Medical History Past Medical History: Asthma, Coronary Artery Disease (CAD), Chest Pain / Angina, Diabetes Mellitus, GERD/Reflux, Hearing Disorder / Deafness, Hyperlipidemia, Hypertension Additional Past Medical History / Comment(s): IDDM. Hx chronic back pain, chronic pain syndrome. Neuropathy bilateral feet, [place]/uses hearing aids bilaterally. Rash to rt leg -irritation from socks and swelling to ankles. History of Any Multi-Drug Resistant Organisms: None Reported Past Surgical History: Heart Catheterization With Stent, Orthopedic Surgery Additional Past Surgical History / Comment(s): trigger 2nd digit left hand 10--20, trigger finger release rt hand,Cervical fusion, back lami/injections, neck sx, carpal tunnel surgery, colonoscopy/benign polypectomy. 3 stents placed 05/2021 and 04/2023. total of 5 heart caths. Past Anesthesia/Blood Transfusion Reactions: No Reported Reaction Additional Past Anesthesia/Blood Transfusion Reaction / Comment(s): no problems with prior blood transfusion. Date of Last Stent Placement:: May 2023 x3 stent total Past Psychological History: No Psychological Hx Reported Smoking Status: Never smoker Past Alcohol Use History: None Reported Past Drug Use History: None Reported - Past Family History Father Family Medical History: Myocardial Infarction ([place]) Additional Family Medical History / Comment(s): Passed at age 72. Mother Family Medical History: Myocardial Infarction ([place]) Additional Family Medical History / Comment(s): Passed at age 77. Brother(s) Family Medical History: Myocardial Infarction ([place]) Additional Family Medical History / Comment(s): 3 brothers passed from [place] in 50's. Sister(s) Family Medical History: Myocardial Infarction ([place]) Additional Family Medical History / Comment(s): sister 50s General Exam General appearance: alert, in no apparent distress, anxious Head exam: Present: atraumatic, normocephalic, normal inspection Eye exam: Present: normal appearance, PERRL, EOMI. Absent: scleral icterus, conjunctival injection, periorbital swelling ENT exam: Present: normal exam, mucous membranes moist Neck exam: Present: normal inspection. Absent: tenderness, meningismus, lymphadenopathy Respiratory exam: Present: normal lung sounds bilaterally. Absent: respiratory distress, wheezes, rales, rhonchi, stridor Cardiovascular Exam: Present: normal rhythm, tachycardia, normal heart sounds. Absent: systolic murmur, diastolic murmur, rubs, gallop, clicks GI/Abdominal exam: Present: soft, normal bowel sounds. Absent: distended, tenderness, guarding, rebound, rigid Extremities exam: Present: normal inspection, full ROM, normal capillary refill. Absent: tenderness, pedal edema, joint swelling, calf tenderness Back exam: Present: normal inspection Neurological exam: Present: alert, oriented X3, CN II-XII intact Psychiatric exam: Present: normal affect, normal mood Skin exam: Present: warm, dry, intact, normal color. Absent: rash Course Vital Signs 08/23/24 08/23/24 08/23/24 00:19 00:43 03:48 Temperature 100.8 F H Pulse Rate 98 69 Pulse Rate [ 95 Right Sitting Radial] Respiratory 20 18 Rate Blood Pressure 188/84 136/77 O2 Sat by Pulse 93 L 93 L Oximetry 08/23/24 08/23/24 08/23/24 07:28 08:00 11:00 Temperature 98.4 F Pulse Rate 70 74 71 Pulse Rate [ Right Sitting Radial] Respiratory 18 18 16 Rate Blood Pressure 146/72 144/75 141/64 O2 Sat by Pulse 93 L 93 L Oximetry 08/23/24 08/23/24 08/23/24 17:00 17:45 18:00 Temperature 99 F Pulse Rate 70 70 71 Pulse Rate [ Right Sitting Radial] Respiratory 18 18 18 Rate Blood Pressure 153/86 161/80 158/74 O2 Sat by Pulse 95 94 L 93 L Oximetry 08/23/24 08/23/24 08/24/24 19:13 22:28 02:19 Temperature Pulse Rate 74 70 73 Pulse Rate [ Right Sitting Radial] Respiratory 18 18 16 Rate Blood Pressure 145/79 118/78 110/64 O2 Sat by Pulse 93 L 92 L 95 Oximetry 08/24/24 08/24/24 08/24/24 05:31 06:19 07:29 Temperature Pulse Rate 58 L 58 L 61 Pulse Rate [ Right Sitting Radial] Respiratory 16 16 18 Rate Blood Pressure 124/66 128/64 130/66 O2 Sat by Pulse 94 L 93 L Oximetry 08/24/24 08/24/24 08:29 10:22 Temperature 97.8 F 97.8 F Pulse Rate 72 80 Pulse Rate [ Right Sitting Radial] Respiratory 18 18 Rate Blood Pressure 146/75 123/94 O2 Sat by Pulse 94 L 98 Oximetry - Reevaluation(s) Reevaluation #1: 08/23/24 01:36 Medical records reviewed Reevaluation #2: 08/23/24 01:37 Patient fevers improved symptoms improving Reevaluation #3: 08/23/24 04:06 Patient informed of results questions answered Reevaluation #4: Was pt. sent in by a medical professional or institution (, PA, CARROTER, urgent care, hospital, or fci...) When possible be specific @ -no Did you speak to anyone other than the patient for history (EMS, parent, family, police, friend...)? What history was obtained from this source @ -no Did you review nursing and triage notes (agree or disagree)? Why? @ -agree Are old charts reviewed (outside hosp., previous admission, EMS record, old EKG, old radiological studies, urgent care reports/EKG's, fci records)? Report findings @ -yes Differential Diagnosis (chest pain, altered mental status, abdominal pain women, abdominal pain men, vaginal bleeding, weakness, fever, dyspnea, syncope, headache, dizziness, GI bleed, back pain, seizure, CVA, palpatations, mental health, musculoskeletal)? @ -prior EKG interpreted by me (3pts min.). @ -yes X-rays interpreted by me (1pt min.). @ -yes negative for acute disease CT interpreted by me (1pt min.). @ -yes negative for acute disease U/S interpreted by me (1pt. min.). @ -yes negative for acute disease What testing was considered but not performed or refused? (CT, X-rays, U/S, labs)? Why? @ -none What meds were considered but not given or refused? Why? @ -none Did you discuss the management of the patient with other professionals (professionals i.e. DrMiley, PA, CARROTER, lab, RT, psych nurse, social work associate, pressure washer, teacher, credit administration officer, bilingual patient support caseworker)? Give summary @ -no Was smoking cessation discussed for >3mins.? @ -no Was critical care preformed (if so, how long)? @ -no Were there social determinants of health that impacted care today? How? (Homelessness, low income, unemployed, alcoholism, drug addiction, transportation, low edu. Level, literacy, decrease access to med. care, long term, rehab)? @ -none Was there de-escalation of care discussed even if they declined (Discuss DNR or withdrawal of care, Hospice)? DNR status @ -no What co-morbidities impacted this encounter? (DM, HTN, Smoking, COPD, CAD, Cancer, CVA, ARF, Chemo, Hep., AIDS, mental health diagnosis, sleep apnea, morbid obesity)? @ -none Was patient admitted / discharged? Hospital course, mention meds given and route, prescriptions, significant lab abnormalities, going to OR and other pertinent info. @ - 79 male to the ER for evaluation of chest pain chest pain with fever. No cause of fever here in the ER patient will be admitted to the chest pain observation Admitted Undiagnosed new problem with uncertain prognosis? @ -no Drug Therapy requiring intensive monitoring for toxicity (Heparin, Nitro, Insulin, Cardizem)? @ -no Were any procedures done? @ -no Diagnosis/symptom? @ -Chest pain with fever Acute, or Chronic, or Acute on Chronic? @ -Acute Uncomplicated (without systemic symptoms) or Complicated (systemic symptoms)? @ -Complicated Side effects of treatment? @ -no Exacerbation, Progression, or Severe Exacerbation? @ -exacerbation Poses a threat to life or bodily function? How? (Chest pain, [place], [place], pneumonia, PE, COPD, DKA, ARF, appy, cholecystitis, CVA, Diverticulitis, Homicidal, Suicidal, threat to staff... and all critical care pts) @ -yes extremes of age Reevaluation #5: Differential Chest Pain: Stable Angina, Unstable Angina, STEMI, NSTEMI Aortic Dissection, Pneumothorax, Musculoskeletal, Esophageal Spasm GERD, Cholecystitis, Pancreatitis, Zoster, this is not meant to be an all-inclusive list. Differential Fever: Pneumonia, viral URI, endocarditis, myocarditis, pericarditis, otitis, sinusitis, peritonsillar Abscess, retropharyngeal Abscess, epiglottitis, peritonitis, appendicitis, Jennifer cystitis, diverticulitis, hepatitis, colitis, UTI, PID, TOA, pyelonephritis, prostatitis, epididymitis, meningitis, encep halitis, pulmonary embolism, CVA, thyroid storm, pancreatitis, adrenal crisis, cavernous sinus thrombosis, this is not meant to be an all-inclusive list. - Consultations Consultation #1: Spoke with Dr. Fountain who agrees to admit this patient Chest Pain MDM - MDM 79 male to the ER for evaluation of chest pain chest pain with fever. No cause of fever here in the ER patient will be admitted to the chest pain observation Disposition Clinical Impression: Chest pain, Weakness, Fever, CAD (coronary artery disease) Disposition: ADMITTED IP TO THIS HOSP Condition: Undetermined Is patient prescribed a controlled substance at d/c from ED?: No Time of Disposition: 04:00
[2024-08-23 00:24] LABS: Glucose,Whole Blood 201 mg/dL (70-110)
[2024-08-23] MEDS: ONDANSETRON 4 MG/2 ML VIAL IVP STA (00:31)
[2024-08-23] MEDS: MORPHINE SULFATE 4 MG/ML SYRINGE IV STA (00:33)
[2024-08-23] MEDS: LACTATED RINGERS 1,000 ML IV SCH (00:36)
[2024-08-23 00:41] LABS: Basophils # (A) 0.03 10*3/uL (0.00-0.10); Basophils % (A) 0.4 %; Eosinophils # (A) 0.38 10*3/uL (0.04-0.35); Eosinophils % (A) 5.5 %; HCT 36.2 % (39.6-50.0); HGB 11.7 g/dL (13.0-17.0); Lymphocytes # (A) 0.92 10*3/uL (0.90-5.00); Lymphocytes % (A) 13.4 %; MCH 25.3 pg (27.0-32.0); MCHC 32.3 g/dL (32.0-37.0); MCV 78.2 fL (80.0-97.0); Mean Platelet Volume 9.3 fL (9.5-12.2); Monocytes % (A) 10.2 %; Neutrophils # (A) 4.79 10*3/uL (1.80-7.70); Neutrophils % (A) 69.9 %; Platelet Count 198 10*3/uL (140-440); RBC 4.63 10*6/uL (4.40-5.60); RDW 17.7 % (11.5-14.5); WBC 6.86 10*3/uL (4.50-10.00)
[2024-08-23] MEDS: ACETAMINOPHEN IV (For NPO) 1,000 MG in EMPTY BAG 1 BAG IVPB STA (00:50)
[2024-08-23 00:51] LABS: ALT 25 U/L (4-49); AST 24 U/L (17-59); African American GFR (CKD) 61 (>60 ml/min/1.73 sqM); Albumin 4.1 g/dL (3.5-5.0); Alkaline Phosphatase 111 U/L (38-126); Anion Gap 14 mmol/L; Blood Urea Nitrogen 25 mg/dL (9-20); Carbon Dioxide 22 mmol/L (22-30); Chloride 98 mmol/L (98-107); Glucose 193 mg/dL (74-99); Magnesium 1.6 mg/dL (1.6-2.3); Non-African American GFR(CKD) 53 (>60 ml/min/1.73 sqM); Phosphorus 4.1 mg/dL (2.5-4.5); Potassium 4.2 mmol/L (3.5-5.1); Sodium 134 mmol/L (137-145); Total Bilirubin 0.6 mg/dL (0.2-1.3); Total Protein 6.8 g/dL (6.3-8.2)
[2024-08-23 01:00] LABS: NT-Pro-B-Type Natriuretic Pept 127 pg/mL
--- NOTE | 2024-08-23 01:20 | XR ---
EXAM: XR Chest, 1 View CLINICAL HISTORY: XR Reason: cp TECHNIQUE: Frontal view of the chest. COMPARISON: 04/21/2024 FINDINGS: Lungs: Low lung volumes with central bronchovascular crowding. Small amount of bibasilar subsegmental atelectasis, similar to previous. Pleural space: Unremarkable. No pneumothorax. Heart: The cardiac silhouette is mildly enlarged, exaggerated by technique. Mediastinum: Unremarkable. Normal mediastinal contour. Bones/joints: Previous multilevel fusion and instrumentation throughout the cervical and upper thoracic spine as well as the upper lumbar spine. Mild degenerative changes of the right shoulder. No acute fracture. Upper abdomen: Unremarkable as visualized. No pneumoperitoneum under the diaphragm. IMPRESSION: 1. The cardiac silhouette is mildly enlarged, exaggerated by technique. 2. Low lung volumes with central bronchovascular crowding. Small amount of bibasilar subsegmental atelectasis, similar to previous.
[2024-08-23 01:34] LABS: INR 0.9 (<1.2); Partial Thromboplastin Time 22.4 sec (22.0-30.0); Prothrombin Time 10.3 sec (10.0-12.5)
--- NOTE | 2024-08-23 01:41 | US ---
EXAM: US Abdomen Limited, Gallbladder CLINICAL HISTORY: US Reason: pain TECHNIQUE: Real-time ultrasound of the right upper quadrant with image documentation. COMPARISON: CT scan from 12/05/2020 FINDINGS: Liver: The liver measures 13.7 cm is probable mild fatty infiltration. No focal liver lesion is seen. Gallbladder: The gallbladder is normally distended. No visible gallstones, wall thickening, or surrounding fluid. Common bile duct: The common bile duct is nondilated measuring 4 mm. Pancreas: The pancreas is mostly obscured by bowel gas. Right kidney: Unremarkable. No stones. No hydronephrosis. The right kidney measures 10.2 cm. IMPRESSION: The gallbladder is normally distended. No visible gallstones, wall thickening, or surrounding fluid. Sonographic Madden's sign is negative.
[2024-08-23] MEDS: IPRATROPIUM-ALBUTEROL 3 ML NEB INHALATION STA (03:10)
--- NOTE | 2024-08-23 03:59 | CT ---
EXAM: CT Angiography Chest With Intravenous Contrast CLINICAL HISTORY: ITS.REASON CT Reason: cp TECHNIQUE: Axial computed tomographic angiography images of the chest with intravenous contrast. CTDI is 23.5 mGy and DLP is 726 mGy-cm. This CT exam was performed using one or more of the following dose reduction techniques: automated exposure control, adjustment of the mA and/or kV according to patient size, and/or use of iterative reconstruction technique. MIP reconstructed images were created and reviewed. COMPARISON: No relevant prior studies available. FINDINGS: Pulmonary arteries: Unremarkable. No pulmonary embolism. Aorta: No acute findings. No thoracic aortic aneurysm. Lungs: Dependent atelectasis at the lung bases. No mass. Pleural space: Unremarkable. No significant effusion. No pneumothorax. Heart: Cardiomegaly. No significant pericardial effusion. No evidence of RV dysfunction. Bones/joints: Multilevel posterior thoracolumbar fusion hardware. No acute fracture. No dislocation. Soft tissues: Unremarkable. Lymph nodes: Unremarkable. No enlarged lymph nodes. IMPRESSION: No pulmonary embolism.
[2024-08-23] MEDS: KETOROLAC 15 MG/ML 1 ML VIAL IVP STA (04:01)
[2024-08-23] MEDS ORDERED: ONDANSETRON 4 MG/2 ML VIAL IVP PRN (04:04)
[2024-08-23] MEDS ORDERED: NALOXONE 0.4 MG/ML 1 ML VIAL IV PRN (04:04)
[2024-08-23] MEDS ORDERED: SODIUM CHLORIDE 0.9% 1,000 ML IV SCH (04:15)
[2024-08-23 04:39] LABS: Appearance,Urine Clear (Clear); Bilirubin,Urine Negative (Negative); Blood,Urine Negative (Negative); Color,Urine Colorless; Glucose,Urine (UA) 3+ (Negative); Ketones,Urine Negative (Negative); Leukocyte Esterase,Urine Negative (Negative); Nitrite,Urine Negative (Negative); PH, Urine 5.5 (5.0-8.0); Protein,Urine Negative (Negative); Specific Gravity,Urine 1.026 (1.001-1.035); Urobilinogen,Urine <2.0 mg/dL (<2.0)
[2024-08-23 05:07] LABS: Influenza A Not Detected (Not Detectd); Influenza B Not Detected (Not Detectd); RSV Not Detected (Not Detectd)
[2024-08-23] MEDS: MORPHINE SULFATE 4 MG/ML SYRINGE IV PRN (13:06)
[2024-08-23] MEDS ORDERED: HEPARIN SODIUM 1,000 UN/ML (10ML VL) IV PRN (17:30)
--- NOTE | 2024-08-23 17:36 | P.HPIM ---
History of Present Illness H&P Date: 08/23/24 Primitivo Benjamin, is an 79-year-old male who presented to [facility] emergency room with a chief complaint of chest pain He was evaluated in the emergency room vital examination on presentation revealed a temperature of 100.8 pulse 98 respiration 20 blood pressure 188/84 pulse ox 93% on room air Laboratory data revealed a temperature of 6.86 hemoglobin 11.7 platelet count 198 D-dimer 2.16 BUN 25 creatinine 1.27 Testing in the emergency room revealed chest x-ray revealed low lung volumes and small amount of bibasilar subsegmental atelectasis similar to previous, chest CT angiogram revealed no evidence of pulmonary embolism Patient was admitted to medical floor for further evaluation and treatment, cardiology consultation was requested Past Medical History Past Medical History: Asthma, Coronary Artery Disease (CAD), Chest Pain / Mena na, Diabetes Mellitus, GERD/Reflux, Hearing Disorder / Deafness, Hyperlipidemia, Hypertension Additional Past Medical History / Comment(s): IDDM. Hx chronic back pain, chronic pain syndrome. Neuropathy bilateral feet, [place]/uses hearing aids bilaterally. Rash to rt leg -irritation from socks and swelling to ankles. History of Any Multi-Drug Resistant Organisms: None Reported Past Surgical History: Heart Catheterization With Stent, Orthopedic Surgery Additional Past Surgical History / Comment(s): trigger 2nd digit left hand 10-20, trigger finger release rt hand,Cervical fusion, back lami/injections, neck sx, carpal tunnel surgery, colonoscopy/benign polypectomy. 3 stents placed 05/2021 and 04/2023. total of 5 heart caths. Past Anesthesia/Blood Transfusion Reactions: No Reported Reaction Additional Past Anesthesia/Blood Transfusion Reaction / Comment(s): no problems with prior blood transfusion. Date of Last Stent Placement:: May 2023 x3 stent total Past Psychological History: No Psychological Hx Reported Smoking Status: Never smoker Past Alcohol Use History: None Reported Past Drug Use History: None Reported - Past Family History Father Family Medical History: Myocardial Infarction ([place]) Additional Family Medical History / Comment(s): Passed at age 72. Mother Family Medical History: Myocardial Infarction ([place]) Additional Family Medical History / Comment(s): Passed at age 77. Brother(s) Family Medical History: [place]ocardial Infarction ([place]) Additional Family Medical History / Comment(s): 3 brothers passed from [place] in 50's. Sister(s) Family Medical History: Myocardial Infarction ([place]) Additional Family Medical History / Comment(s): sister 50s Medications and Allergies Home Medications Medication Instructions Recorded Confirmed Type amLODIPine BESYLATE [Norvasc] 10 mg PO DAILY 04/19/14 08/23/24 History Insulin Glargine (Lantus) [Lantus 70 unit SQ HS 07/20/19 08/23/24 History Vial] INSULIN LISPRO (humaLOG) [humaLOG] 15 - 20 units SQ AC-TID 01/09/20 08/23/24 History Atorvastatin [Lipitor] 40 mg PO HS 09/19/22 08/23/24 History Omeprazole [PriLOSEC] 20 mg PO BID 11/21/22 08/23/24 History Nitroglycerin Sl Tabs [Nitrostat] 0.4 mg SL Q5M PRN 06/18/23 08/23/24 History Ezetimibe [Zetia] 10 mg PO DAILY 04/01/24 08/23/24 History Isosorbide Mononitrate ER [Imdur] 60 mg PO DAILY 04/22/24 08/23/24 History Metoprolol Tartrate [Lopressor] 12.5 mg PO BID 04/22/24 08/23/24 History Tamsulosin [Flomax] 0.4 mg PO HS 30 Days #30 cap 04/23/24 08/23/24 Rx Aspirin 81 mg PO DAILY 30 Days #30 tab 07/07/24 08/23/24 Rx HYDROcodone/APAP 5-325MG [[place] 1 tab PO QID 07/07/24 08/23/24 History 5-325] Pregabalin [Lyrica] 225 mg PO BID 07/07/24 08/23/24 History Cyclobenzaprine [Flexeril] 5 mg PO HS PRN 08/23/24 08/23/24 History Allergies Allergy/AdvReac Type Severity Reaction Status Date / Time oxycodone AdvReac Hallucinati Verified 08/23/24 09:15 ons Physical Exam Vitals: Vital Signs Temp Pulse Pulse Resp BP Pulse Ox 08/23/24 08:00 98.4 F 74 18 144/75 93 L 08/23/24 07:28 70 18 146/72 93 L 08/23/24 03:48 69 18 136/77 93 L 08/23/24 00:43 95 08/23/24 00:19 100.8 F H 98 20 188/84 93 L Intake and Output 08/22/24 08/23/24 08/23/24 22:59 06:59 14:59 Other: Weight 95.254 kg In general patient is alert and oriented x 3 in no distress HEENT head normocephalic and atraumatic Neck is supple no JVD no goiter no lymphadenopathy no carotid bruit Chest examination is clear to auscultation no crackles no wheezing Cardiac exam reveals regular heart sounds S1 and S2 no gallops no murmurs Abdomen is soft nontender no organomegaly with normal bowel sounds Extremity exam reveals no edema no cyanosis or clubbing Neurological examination reveals no gross focal deficits Results CBC & Chem 7: 08/23/24 00:20 08/23/24 00:20 Labs: Abnormal Lab Results - Last 24 Hours (Table) 08/23/24 08/23/24 08/23/24 Range/Units 00:20 00:20 00:20 Hgb 11.7 L (13.0-17.0) g/dL Hct 36.2 L (39.6-50.0) % MCV 78.2 L (80.0-97.0) fL MCH 25.3 L (27.0-32.0) pg MPV 9.3 L (9.5-12.2) fL Eosinophils # 0.38 H (0.04-0.35) 10*3/uL D-Dimer 2.16 H (<0.60) mg/L FEU Sodium 134 L (137-145) mmol/L BUN 25 H (9-20) mg/dL Creatinine 1.27 H (0.66-1.25) mg/dL Glucose 193 H (74-99) mg/dL POC Glucose (mg/dL) (70-110) mg/dL Plasma Lactic Acid Hossein (0.7-2.0) mmol/L Troponin I (0.000-0.034) ng/mL Urine Glucose (UA) (Negative) 08/23/24 08/23/24 08/23/24 Range/Units 00:20 00:23 03:49 Hgb (13.0-17.0) g/dL Hct (39.6-50.0) % MCV (80.0-97.0) fL MCH (27.0-32.0) pg MPV (9.5-12.2) fL Eosinophils # (0.04-0.35) 10*3/uL D-Dimer (<0.60) mg/L FEU Sodium (137-145) mmol/L BUN (9-20) mg/dL Creatinine (0.66-1.25) mg/dL Glucose (74-99) mg/dL POC Glucose (mg/dL) 201 H (70-110) mg/dL Plasma Lactic Acid Hossein 3.1 H* (0.7-2.0) mmol/L Troponin I (0.000-0.034) ng/mL Urine Glucose (UA) 3+ H (Negative) 08/23/24 Range/Units 06:53 Hgb (13.0-17.0) g/dL Hct (39.6-50.0) % MCV (80.0-97.0) fL MCH (27.0-32.0) pg MPV (9.5-12.2) fL Eosinophils # (0.04-0.35) 10*3/uL D-Dimer (<0.60) mg/L FEU Sodium (137-145) mmol/L BUN (9-20) mg/dL Creatinine (0.66-1.25) mg/dL Glucose (74-99) mg/dL POC Glucose (mg/dL) (70-110) mg/dL Plasma Lactic Acid Hossein (0.7-2.0) mmol/L Troponin I 0.372 H* (0.000-0.034) ng/mL Urine Glucose (UA) (Negative) Assessment and Plan Plan: Episode of chest pain Known history of coronary artery disease with previous history of angioplasty and stent placement Underlying history of hypertension Underlying history of diabetes mellitus Underlying history of peripheral vascular disease Underlying history of asthma without evidence of exacerbation At this time patient was seen and examined Home medications reviewed and reordered Cardiology consultation was requested Will follow closely
[2024-08-23] MEDS: PANTOPRAZOLE 40 MG TABLET PO SCH (17:57)
[2024-08-23] MEDS: ISOSORBIDE MONONITRATE ER 60 MG TAB.ER.24H PO SCH (17:58)
[2024-08-23] MEDS: CYCLOBENZAPRINE 5 MG TAB PO PRN (17:58)
[2024-08-23 17:59] LABS: Glucose,Whole Blood 114 mg/dL (70-110)
[2024-08-23] MEDS: ASPIRIN 81 MG PO SCH (18:05)
[2024-08-23 18:12] LABS: Basophils # (A) 0.03 10*3/uL (0.00-0.10); Basophils % (A) 0.8 %; Eosinophils # (A) 0.28 10*3/uL (0.04-0.35); Eosinophils % (A) 7.1 %; HCT 38.7 % (39.6-50.0); HGB 12.2 g/dL (13.0-17.0); Lymphocytes # (A) 0.86 10*3/uL (0.90-5.00); Lymphocytes % (A) 21.8 %; MCH 24.7 pg (27.0-32.0); MCHC 31.5 g/dL (32.0-37.0); MCV 78.3 fL (80.0-97.0); Mean Platelet Volume 9.5 fL (9.5-12.2); Monocytes # (A) 0.41 10*3/uL (0.20-1.00); Monocytes % (A) 10.4 %; Neutrophils # (A) 2.35 10*3/uL (1.80-7.70); Neutrophils % (A) 59.6 %; Platelet Count 166 10*3/uL (140-440); RBC 4.94 10*6/uL (4.40-5.60); RDW 17.7 % (11.5-14.5); WBC 3.94 10*3/uL (4.50-10.00)
[2024-08-23] MEDS: HEPARIN SODIUM 1,000 UN/ML (10ML VL) IV ONE (18:17)
[2024-08-23] MEDS: HEPARIN SOD,PORK IN 0.45% NACL 25,000 UNIT in 0.45% NACL 1 250ML.BAG IV SCH (18:21)
[2024-08-23 18:22] LABS: Partial Thromboplastin Time 24.9 sec (22.0-30.0); Prothrombin Time 11.4 sec (10.0-12.5)
[2024-08-23] MEDS: INSULIN LISPRO (HumaLOG) 100 UNIT/ML 10 mL VL SQ SCH (18:22)
[2024-08-23] MEDS: HYDROcodone/APAP 5-325MG 1 EACH TAB PO SCH (19:15)
[2024-08-23] MEDS: ATORVASTATIN 40 MG TAB PO SCH (21:22)
[2024-08-23] MEDS: METOPROLOL TARTRATE 12.5 MG TAB PO SCH (21:23)
[2024-08-23] MEDS: PREGABALIN 75 MG CAP PO SCH (21:23)
[2024-08-23] MEDS: TAMSULOSIN 0.4 MG CAP.ER.24H PO SCH (21:23)
[2024-08-23] MEDS: INSULIN GLARGINE (LANTUS) 100 UNIT/ML SYR SQ SCH (21:24)
[2024-08-24 08:07] LABS: Basophils # (A) 0.03 10*3/uL (0.00-0.10); Basophils % (A) 0.6 %; Eosinophils # (A) 0.49 10*3/uL (0.04-0.35); Eosinophils % (A) 10.5 %; HGB 11.9 g/dL (13.0-17.0); Immature Platelet Fraction 4.5 % (1.1-6.1); Lymphocytes # (A) 0.95 10*3/uL (0.90-5.00); Lymphocytes % (A) 20.4 %; MCH 24.8 pg (27.0-32.0); MCHC 31.3 g/dL (32.0-37.0); MCV 79.3 fL (80.0-97.0); Mean Platelet Volume 10.2 fL (9.5-12.2); Monocytes # (A) 0.55 10*3/uL (0.20-1.00); Monocytes % (A) 11.8 %; Neutrophils % (A) 55.8 %; Platelet Count 123 10*3/uL (140-440); RBC 4.79 10*6/uL (4.40-5.60); RDW 17.8 % (11.5-14.5); WBC 4.66 10*3/uL (4.50-10.00)
[2024-08-24] MEDS: EZETIMIBE 10 MG TAB PO SCH (08:24)
[2024-08-24] MEDS: amLODIPine 10 MG TAB PO SCH (08:24)
[2024-08-24 08:49] LABS: Glucose,Whole Blood 84 mg/dL (70-110)
[2024-08-24] MEDS ORDERED: ALPRAZolam 0.5 MG TAB PO PRN (09:04)
[2024-08-24] MEDS ORDERED: ALPRAZolam 0.25 MG TAB PO PRN (09:04)
[2024-08-24] MEDS ORDERED: NITROGLYCERIN SL TABS 0.4 MG TAB SUBLINGUAL PRN ×2 (09:04→11:55)
[2024-08-24] MEDS: ASPIRIN 325 MG TAB PO STA (09:19)
[2024-08-24] MEDS: ATORVASTATIN 80 MG TAB PO STA (09:42)
[2024-08-24] MEDS: ASPIRIN 81 MG PO ONE (10:45)
[2024-08-24] MEDS: fentaNYL (PF) 50 MCG/1 ML VIAL IVP ONE (10:46)
[2024-08-24] MEDS: LIDOCAINE 1% INJ 10MG/ML (20 ML MDV) SQ ONE (10:46)
[2024-08-24] MEDS: VERAPAMIL SYRINGE (5 MG/10 ML) INTRAARTER ONE (10:48)
[2024-08-24] MEDS: HEPARIN SODIUM 1,000 UN/ML (10ML VL) IVP ONE (10:49)
[2024-08-24] MEDS: TICAGRELOR 90 MG TAB PO ONE (11:00)
[2024-08-24] MEDS: SODIUM CHLORIDE 0.9% 1,000 ML IV ONE (11:03)
[2024-08-24] MEDS: HEPARIN SODIUM,PORCINE (1 ML) 2,500 UNIT in SODIUM CHLORIDE 0.9% 250 ML IRRIGATION PRN (11:04)
[2024-08-24] MEDS: HEPARIN SODIUM,PORCINE 10,000 UNIT in SODIUM CHLORIDE 0.9% 1,000 ML IRRIGATION PRN (11:04)
[2024-08-24] MEDS: IOPAMIDOL-370 100ML BTL INJ ONE ×2 (11:18→11:40)
[2024-08-24] MEDS ORDERED: ZOLPIDEM 5 MG TAB PO PRN (11:55)
[2024-08-24] MEDS ORDERED: RX INFO: IV CONTRAST WAS GIVEN 1 EACH MISC MISCELLANE PRN (11:55)
[2024-08-24] MEDS ORDERED: ATROPINE SULFATE 0.1 MG/ML 10ML SYRINGE IV PRN (11:55)
[2024-08-24] MEDS ORDERED: MAG HYDROX/AL HYDROX/SIMETH 30 ML CUP PO PRN (11:55)
--- NOTE | 2024-08-24 12:08 | P.CARDCATH ---
Date of Procedure: 08/24/24 Description of Procedure: Cardiac Catheterization: The patient is an 79-year-old male with a known history of CAD, status post multivessel stenting, last time in April 2023, history of hypertension, hyperlipidemia, diabetes mellitus who presented with symptoms of chest discomfort, no EKG changes and mild troponin elevation. He was evaluated by Dr. Donis. Recommendations were made regarding cardiac catheterization, the risks and the complications were discussed with the patient who is in full unde rstanding and agreement. Procedure Description: Patient was brought to production laborer in fasting semi-sedated state after receiving Fentanyl and Benadryl achieiving moderate conscious sedated state. Using Xylocaine Anesthesia and modified Seldinger technique, a 6-St Lucian sheath was introduced in the right radial artery . Subsequently, selective coronary angiography was performed using a 5-St Lucian 3.5 bend Magi catheter. Multiple views of the coronary artery including hemiaxial views were obtained. The 5 [place] Lucian pigtail catheter was used to cross the aortic valve and LVEDP was calculated. PCI: After removing the catheters a 6 [place] Lucian CLS 3.5 guiding catheter was introduced into the system and after cannulating the left main a 0.014 BMW J-wire was positioned in the mid LAD. Subsequently a 3.0 x 12 mm trek balloon was advanced and inflation at 8 lex was done. After removing the balloon a milabent Tillman eye IVUS catheter was introduced and revealed moderate calcified lesion with distal lumen in the LAD of 3.5 mm and in the left main 4.5 to 5 mm in diameter. Subsequently a 0.014 BMW J-wire was positioned in the distal left circumflex. After removing the catheter a 3.5 x 18 mm Xience Skypoint stent was advanced deployed at 16 lex. After removing the balloon repeat IVUS imaging was performed and subsequently a 3.75 x 12 mm NC trek balloon was advanced and 1 inflation at 10 lex in the distal segment of the stent was performed and subsequently a 4.5 x 8 mm NC trek balloon was advanced in the left main and 1 inflation at 12 lex was done. After the last inflation the BMW J-wire was reintroduced in the left circumflex. Attempt to advance a 3.0 x 12 mm trek balloon were unsuccessful. The decision was made to treat the ostium LAD conservatively, it had a KYLE-3 flow. After removing the wires images were obtained and revealed stable successful stenting. Following that, catheter and sheath were removed. Hemostasis was obtained with deployment of vascular band . There was no immediate complication. Patient was returned to room in stable condition. Of note, the patient received a total of 6000 units of intravenous heparin as well as intra-arterial verapamil. He received a loading dose of Brilinta. His ACT was monitored. He had mild chest discomfort that resolved at the end of the procedure. Findings: Left main: This is a large size vessel, bifurcating into LAD and left circumflex, left main has no obstructive disease. LAD: This is a large size vessel, reaching to the apex, giving rise to a moderately sized diagonal in the midsegment. The LAD at the ostium has a 99% stenosis. The stented segment in the mid LAD is patent. There is mild disease proximal to the stent of 20%. The rest of the vessel has intimal disease with no high-grade stenosis. Left circumflex: This is a large nondominant vessel giving rise to 2 obtuse marginal branch. The ostium of the left circumflex has a 30 to 40% plaque. The stented segment in the first OM is patent with no significant in-stent restenosis. The ostium of the first OM has a 40 to 60% plaque. The proximal left circumflex stented segment is patent with mild in-stent restenosis. There is a 30 to 40% plaque in the proximal segment of the second OM. RCA: This is a large dominant vessel tortuous proximally. The stented segment in the proximal left circumflex is patent with no significant in-stent restenosi s. There is diffuse intimal disease in the mid and distal left circumflex with no high-grade stenosis. Left Ventriculogram: Not performed Hemodynamics: There was no gradient across the aortic valve, LVEDP was 8-12 mmHg Conclusion: 1. Severe stenosis at the ostium of the LAD 2. Patent stent in the mid LAD, OM1, proximal left circumflex and proximal RCA with mild in-stent restenosis 3. Mild to moderate disease at the ostium of the left circumflex 4. Right dominance 5. Successful stenting of the ostium of the LAD with reduction stenosis from 99% to less than 5% with 60 to 70% lesion in the ostium of the left circumflex with KYLE-3 flow. Recommendations: The patient will continue on aspirin and Brilinta for 1 year without any interruption in addition to aggressive coronary risks modifications, attempting to maintain LDL below 70 mg/dL. The findings and the recommendations were discussed with the patient and the family and they were in full understanding and agreement. Duration of sedation is 54 minutes.
--- NOTE | 2024-08-24 12:35 | P.CRDCN ---
History of Present Illness History of present illness: HISTORY OF PRESENT ILLNESS: This is a 79-year-old male with a past medical history significant for coronary artery disease with previous stenting, hypertension, hyperlipidemia, diabetes, peripheral vascular disease, and obesity. Patient follows in the office with Dr. Aranda. We have been asked to see the patient in consultation for elevated troponins. Patient examined at the bedside in the emergency room. Patient initially presented to the hospital for chief complaint of epigastric pain. He reports having mild chest discomfort as well. He denies any shortness of breath. He denies any radiation of the pain. Patient was found to have elevated troponins was started on IV heparin. At the time of examination he denies any chest pain or pressure. DIAGNOSTICS: - EKG reveals sinus mechanism with nonspecific ST-T wave changes - Chest xray cardiac silhouette mildly enlarged, exaggerated by technique. Low lung volumes with central bronchovascular crowding. Small amount of bibasilar subsegmental atelectasis similar to previous - Laboratory data: WBC 4.66. Hemoglobin 11.9. Platelet count 123. Sodium 134. Potassium 4.2. BUN 25. Creatinine 1.27. Troponin 0.012. 0.372. 0.391. - Current home cardiac medications include aspirin 81 mg daily, Lipitor 40 mg daily, Zetia 10 mg daily, Imdur 60 mg daily, metoprolol tartrate 12.5 mg twice a day, amlodipine 10 mg daily. - Most recent echocardiogram obtained in December 2023 revealed ejection fraction 55 to 60%, mild concentric LVH, no significant valvular disease - Cardiac catheterization history: April 2023 revealing severe stenosis in proximal left circumflex, patent stent in LAD, RCA, and first OM. Mild disease in the LAD and RCA. Patient underwent successful stenting of the ostium and proximal left circumflex. REVIEW OF SYSTEMS: At the time of my exam: CONSTITUTIONAL: Denies fever or chills. HEENT: Denies blurred vision, vision changes, or eye pain. Denies hemoptysis CARDIOVASCULAR: Denies chest pain. Denies orthopnea. Denies PND. Denies palpitations RESPIRATORY: Denies shortness of breath. GASTROINTESTINAL: Denies abdominal pain. Denies nausea or vomiting. HEMATOLOGIC: Denies bleeding disorders. GENITOURINARY: Denies any blood in urine. SKIN: Denies pruitis. Denies rash. PHYSICAL EXAM: VITAL SIGNS: Reviewed. GENERAL: Well-developed in no acute distress. HEENT: Head is normocephalic. Pupils are equal, round. Sclerae anicteric. Mucous membranes of the mouth are moist. Neck supple. No JVD or thyromegaly LUNGS: Respirations even and unlabored. Lungs essentially clear to auscultation bilaterally. HEART: Regular rate and rhythm. S1 and S2 heard. ABDOMEN: Soft. Nondistended. Nontender. EXTREMITIES: Normal range of motion. No clubbing or cyanosis. Peripheral pulses intact. No lower extremity edema NEUROLOGIC: Awake and alert. Oriented x 3. ASSESSMENT: Non-STEMI Coronary artery disease with previous multivessel stenting Hypertension Hyperlipidemia Diabetes Peripheral vascular disease Obesity: BMI 31.0 PLAN: Continue IV heparin Resume home cardiac medications Obtain 2D echo to assess cardiac structure and function Patient to undergo cardiac catheterization today with Dr. Aranda Further recommendations pending patient course Nurse practitioner note has been reviewed by physician. Signing provider agrees with the documented findings, assessment, and plan of care documented by GAME PROTECTOR as a scribe. Past Medical History Past Medical History: Asthma, Coronary Artery Disease (CAD), Chest Pain / Angina, Diabetes Mellitus, GERD/Reflux, Hearing Disorder / Deafness, Hyperlipidemia, Hypertension Additional Past Medical History / Comment(s): IDDM. Hx chronic back pain, chronic pain syndrome. Neuropathy bilateral feet, [place]/uses hearing aids bilaterally. Rash to rt leg -irritation from socks and swelling to ankles. History of Any Multi-Drug Resistant Organisms: None Reported Past Surgical History: Heart Catheterization With Stent, Orthopedic Surgery Additional Past Surgical History / Comment(s): trigger 2nd digit left hand 10-12-20, trigger finger release rt hand,Cervical fusion, back lami/injections, neck sx, carpal tunnel surgery, colonoscopy/benign polypectomy. 3 stents placed 05/2021 and 04/2023. total of 5 heart caths. Past Anesthesia/Blood Transfusion Reactions: No Reported Reaction Additional Past Anesthesia/Blood Transfusion Reaction / Comment(s): no problems with prior blood transfusion. Date of Last Stent Placement:: May 2023 x3 stent total Past Psychological History: No Psychological Hx Reported Smoking Status: Never smoker Past Alcohol Use History: None Reported Past Drug Use History: None Reported - Past Family History Father Family Medical History: Myocardial Infarction (PR) Additional Family Medical History / Comment(s): Passed at age 72. Mother Family Medical History: Myocardial Infarction (PR) Additional Family Medical History / Comment(s): Passed at age 77. Brother(s) Family Medical History: Myocardial Infarction (PR) Additional Family Medical History / Comment(s): 3 brothers passed from PR in 50's. Sister(s) Family Medical History: Myocardial Infarction (PR) Additional Family Medical History / Comment(s): sister 50s Medications and Allergies Home Medications Medication Instructions Recorded Confirmed Type amLODIPine BESYLATE [Norvasc] 10 mg PO DAILY 04/19/14 08/23/24 History Insulin Glargine (Lantus) [Lantus 70 unit SQ HS 07/20/19 08/23/24 History Vial] INSULIN LISPRO (humaLOG) [humaLOG] 15 - 20 units SQ AC-TID 01/09/20 08/23/24 History Atorvastatin [Lipitor] 40 mg PO HS 09/19/22 08/23/24 History Omeprazole [PriLOSEC] 20 mg PO BID 11/21/22 08/23/24 History Nitroglycerin Sl Tabs [Nitrostat] 0.4 mg SL Q5M PRN 06/18/23 08/23/24 History Ezetimibe [Zetia] 10 mg PO DAILY 04/01/24 08/23/24 History Isosorbide Mononitrate ER [Imdur] 60 mg PO DAILY 04/22/24 08/23/24 History Metoprolol Tartrate [Lopressor] 12.5 mg PO BID 04/22/24 08/23/24 History Tamsulosin [Flomax] 0.4 mg PO HS 30 Days #30 cap 04/23/24 08/23/24 Rx Aspirin 81 mg PO DAILY 30 Days #30 tab 07/07/24 08/23/24 Rx HYDROcodone/APAP 5-325MG [Canadensis 1 tab PO QID 07/07/24 08/23/24 History 5-325] Pregabalin [Lyrica] 225 mg PO BID 07/07/24 08/23/24 History Cyclobenzaprine [Flexeril] 5 mg PO HS PRN 08/23/24 08/23/24 History Allergies Allergy/AdvReac Type Severity Reaction Status Date / Time oxycodone AdvReac Hallucinati Verified 08/23/24 09:15 ons Physical Exam Vitals: Vital Signs Temp Pulse Resp BP Pulse Ox 08/24/24 10:22 97.8 F 80 18 123/94 98 08/24/24 08:29 97.8 F 72 18 146/75 94 L 08/24/24 07:29 61 18 130/66 08/24/24 06:19 58 L 16 128/64 93 L 08/24/24 05:31 58 L 16 124/66 94 L 08/24/24 02:19 73 16 110/64 95 08/23/24 22:28 70 18 118/78 92 L 08/23/24 19:13 74 18 145/79 93 L 08/23/24 18:00 71 18 158/74 93 L 08/23/24 17:45 99 F 70 18 161/80 94 L 08/23/24 17:00 70 18 153/86 95 Intake and Output 08/23/24 08/24/24 08/24/24 22:59 06:59 14:59 Intake Total 123.165 614.457 Balance 123.165 614.457 Intake: IV 550 Intake, IV Titration 123.165 64.457 Amount Heparin Sod,Pork in 0.45% 123.165 64.457 NaCl 25,000 unit In 0.45 % NaCl 1 250ml.bag @ 18 UNITS/KG/HR 17.146 mls/hr IV .[id number] [facility] Rx#: [id number] Results 08/24/24 07:48 08/23/24 00:20 Coagulation 08/23/24 08/23/24 08/24/24 Range/Units 17:39 23:58 07:48 PT 11.4 (10.0-12.5) sec APTT 24.9 >200.0 H* 64.1 H (22.0-30.0) sec CBC 08/23/24 08/24/24 Range/Units 17:39 07:48 WBC 3.94 L 4.66 (4.50-10.00) 10*3/uL RBC 4.94 4.79 (4.40-5.60) 10*6/uL Hgb 12.2 L 11.9 L (13.0-17.0) g/dL Hct 38.7 L 38.0 L (39.6-50.0) % Plt Count 166 123 L (140-440) 10*3/uL Current Medications Generic Name Dose Route Start Last Admin Trade Name Freq PRN Reason Stop Dose Admin Hydrocodone Bitart/Acetaminophen 1 each 08/23/24 18:00 08/24/24 08:24 Hydrocodone/Apap 5-325mg 1 Each Tab PO 1 each QID SYDNEY Administration Al Hydroxide/Mg Hydroxide 30 ml 08/24/24 11:55 Mag Hydrox/Al Hydrox/Simeth 30 Ml Cup PO Q4HR PRN Heartburn Alprazolam 0.25 mg 08/24/24 09:04 Alprazolam 0.25 Mg Tab PO Q6HR PRN Mild Anxiety Alprazolam 0.5 mg 08/24/24 09:04 Alprazolam 0.5 Mg Tab PO Q6HR PRN Moderate Anxiety Amlodipine Besylate 10 mg 08/24/24 09:00 08/24/24 08:24 Amlodipine 10 Mg Tab PO 10 mg DAILY SYDNEY Administration Aspirin 81 mg 08/23/24 16:15 08/24/24 08:27 Aspirin 81 Mg PO 81 mg DAILY SYDNEY Administration Atorvastatin Calcium 40 mg 08/23/24 21:00 08/23/24 21:22 Atorvastatin 40 Mg Tab PO 40 mg HS SYDNEY Administration Atropine Sulfate 0.5 mg 08/24/24 11:55 Atropine Sulfate 0.1 Mg/Ml 10ml Syringe IV ONCE PRN Symptomatic Bradycardia Cyclobenzaprine HCl 5 mg 08/23/24 16:11 08/23/24 17:58 Cyclobenzaprine 5 Mg Tab PO 5 mg HS PRN Administration Muscle Spasm Ezetimibe 10 mg 08/24/24 09:00 08/24/24 08:24 Ezetimibe 10 Mg Tab PO 10 mg DAILY SYDNEY Administration Lactated Ringer's 1,000 mls @ 130 mls/hr 08/23/24 00:30 08/24/24 08:24 Lactated Ringers IV 130 mls/hr .[id number] SYDNEY Administration Heparin Sodium (Porcine) 10, 1,001 mls @ 999 mls/hr 08/25/24 07:00 08/24/24 11:04 000 unit/ Sodium Chloride IRRIGATION 08/25/24 23:00 50 mls ONCE PRN Administration INTRA-OP Heparin Sodium (Porcine) 2,500 250.5 mls @ 250 mls/hr 08/25/24 07:00 08/24/24 11:04 unit/ Sodium Chloride IRRIGATION 08/25/24 23:00 50 mls ONCE PRN Administration INTRA-OP Sodium Chloride 1,000 ml/ IV 1,000 mls @ 95.254 mls/hr 08/24/24 09:15 Solution IV .[id number] SYDNEY 1 ML/KG/HR Sodium Chloride 1,000 ml/ IV 1,000 mls @ 95.254 mls/hr 08/24/24 12:00 Solution IV 08/24/24 14:59 .[id number] SYDNEY 1 ML/KG/HR Insulin Glargine 70 unit 08/23/24 21:00 08/23/24 21:24 Insulin Glargine (Lantus) 100 Unit/Ml Syr SQ 70 unit HS SYDNEY Administration Insulin Human Lispro 15 unit 08/23/24 17:30 08/24/24 08:11 Insulin Lispro (Humalog) 100 Unit/Ml 10 Ml Vl SQ Not Given AC-TID SYDNEY Isosorbide Mononitrate 60 mg 08/23/24 16:15 08/24/24 08:24 Isosorbide Mononitrate Er 60 Mg Tab.Er.24h PO 60 mg DAILY SYDNEY Administration Metoprolol Tartrate 12.5 mg 08/23/24 21:00 08/24/24 08:24 Metoprolol Tartrate 12.5 Mg Tab PO 12.5 mg BID SYDNEY Administration Miscellaneous Information 1 each 08/24/24 11:55 Rx Info: Iv Contrast Was Given 1 Each Misc MISCELLANE 08/26/24 11:55 DAILY PRN Per Protocol Morphine Sulfate 4 mg 08/23/24 04:04 08/23/24 17:55 Morphine Sulfate 4 Mg/Ml Syringe IV 4 mg Q4HR PRN Administration Severe Pain (Scale 7 to 10) Naloxone HCl 0.2 mg 08/23/24 04:04 Naloxone 0.4 Mg/Ml 1 Ml Vial IV Q2M PRN Opioid Reversal Nitroglycerin 0.4 mg 08/24/24 09:04 Nitroglycerin Sl Tabs 0.4 Mg Tab SUBLINGUAL Q5M PRN Chest Pain Ondansetron HCl 4 mg 08/23/24 04:04 Ondansetron 4 Mg/2 Ml Vial IVP Q8HR PRN Nausea And Vomiting Pantoprazole Sodium 40 mg 08/23/24 17:30 08/24/24 08:24 Pantoprazole 40 Mg Tablet PO 40 mg AC-BRKFST SYDNEY Administration Pregabalin 225 mg 08/23/24 21:00 08/24/24 08:24 Pregabalin 75 Mg Cap PO 225 mg BID SYDNEY Administration Tamsulosin HCl 0.4 mg 08/23/24 21:00 08/23/24 21:23 Tamsulosin 0.4 Mg Cap.Er.24h PO 0.4 mg HS [facility] Administration Ticagrelor 90 mg 08/24/24 21:00 Ticagrelor 90 Mg Tab PO BID [facility] Protocol Zolpidem Tartrate 5 mg 08/24/24 11:55 Zolpidem 5 Mg Tab PO HS PRN Insomnia Intake and Output 08/23/24 08/24/24 08/24/24 22:59 06:59 14:59 Intake Total 123.165 614.457 Balance 123.165 614.457 Intake: IV 550 Intake, IV Titration 123.165 64.457 Amount Heparin Sod,Pork in 0.45% 123.165 64.457 NaCl 25,000 unit In 0.45 % NaCl 1 250ml.bag @ 18 UNITS/KG/HR 17.146 mls/hr IV .[id number] [facility] Rx#: [id number] 08/24/24 07:48 08/23/24 00:20
--- NOTE | 2024-08-24 12:46 | P.PN ---
Subjective Progress Note Date: 08/24/24 Primitivo Benjamin, is an 79-year-old male who presented to [facility] emergency room with a chief complaint of chest pain He was evaluated in the emergency room vital examination on presentation revealed a temperature of 100.8 pulse 98 respiration 20 blood pressure 188/84 pulse ox 93% on room air Laboratory data revealed a temperature of 6.86 hemoglobin 11.7 platelet count 198 D-dimer 2.16 BUN 25 creatinine 1.27 Testing in the emergency room revealed chest x-ray revealed low lung volumes and small amount of bibasilar subsegmental atelectasis similar to previous, chest CT angiogram revealed no evidence of pulmonary embolism Patient was admitted to medical floor for further evaluation and treatment, cardiology consultation was requested On 08/24/2024 patient is alert and oriented x 3 status post cardiac catheterization with stent placement to the ostium of the LAD patient to cont inue on Brilinta and aspirin for 1 year. Per nursing staff patient will be monitored on selective care today with hopeful discharge home tomorrow. Patient denies chest pain or shortness of breath. Patient denies nausea vomiting or diarrhea. Patient denies any urinary burning or frequency Objective - Vital Signs Vital signs: Vital Signs Temp 97.8 F 08/24/24 10:22 Pulse 80 08/24/24 10:22 Resp 18 08/24/24 10:22 BP 123/94 08/24/24 10:22 Pulse Ox 98 08/24/24 10:22 FiO2 Intake & Output 08/23/24 08/24/24 08/24/24 18:59 06:59 18:59 Intake Total 123.165 614.457 Balance 123.165 614.457 Intake: IV 550 Intake, IV Titration 123.165 64.457 Amount Heparin Sod,Pork in 0.45% 123.165 64.457 NaCl 25,000 unit In 0.45 % NaCl 1 250ml.bag @ 18 UNITS/KG/HR 17.146 mls/hr IV .[id number] [facility] Rx#: [id number] - Exam In general patient is alert and oriented x 3 in no distress HEENT head normocephalic and atraumatic Neck is supple no JVD no goiter no lymphadenopathy no carotid bruit Chest examination is clear to auscultation no crackles no wheezing Cardiac exam reveals regular heart sounds S1 and S2 no gallops no murmurs Abdomen is soft nontender no organomegaly with normal bowel sounds Extremity exam reveals no edema no cyanosis or clubbing Neurological examination reveals no gross focal deficits - Labs CBC & Chem 7: 08/24/24 07:48 08/23/24 00:20 Labs: Abnormal Lab Results - Last 24 Hours (Table) 08/23/24 08/23/24 08/23/24 Range/Units 17:39 17:58 23:58 WBC 3.94 L (4.50-10.00) 10*3/uL Hgb 12.2 L (13.0-17.0) g/dL Hct 38.7 L (39.6-50.0) % MCV 78.3 L (80.0-97.0) fL MCH 24.7 L (27.0-32.0) pg MCHC 31.5 L (32.0-37.0) g/dL Plt Count (140-440) 10*3/uL Lymphocytes # 0.86 L (0.90-5.00) 10*3/uL Eosinophils # (0.04-0.35) 10*3/uL APTT >200.0 H* (22.0-30.0) sec POC Glucose (mg/dL) 114 H (70-110) mg/dL 08/24/24 08/24/24 Range/Units 07:48 07:48 WBC (4.50-10.00) 10*3/uL Hgb 11.9 L (13.0-17.0) g/dL Hct 38.0 L (39.6-50.0) % MCV 79.3 L (80.0-97.0) fL MCH 24.8 L (27.0-32.0) pg MCHC 31.3 L (32.0-37.0) g/dL Plt Count 123 L (140-440) 10*3/uL Lymphocytes # (0.90-5.00) 10*3/uL Eosinophils # 0.49 H (0.04-0.35) 10*3/uL APTT 64.1 H (22.0-30.0) sec POC Glucose (mg/dL) (70-110) mg/dL Assessment and Plan Plan: Episode of chest pain Status post cardiac catheterization with stent to the LAD on 08/24/2024 Known history of coronary artery disease with previous history of angioplasty and stent placement Underlying history of hypertension. Underlying history of diabetes mellitus Underlying history of peripheral vascular disease Underlying history of asthma without evidence of exacerbation At this time patient was seen and examined Home medications reviewed and reordered Cardiology consultation was requested Will follow closely
[2024-08-24] MEDS: SODIUM CHLORIDE 0.9% 1,000 ML in EMPTY BAG 1 BAG IV SCH ×2 (16:13)
[2024-08-24 16:41] LABS: Glucose,Whole Blood 208 mg/dL (70-110)
[2024-08-24 16:48] VITALS: RESP 18
[2024-08-24 20:11] LABS: Glucose,Whole Blood 196 mg/dL (70-110)
[2024-08-24] MEDS: TICAGRELOR 90 MG TAB PO SCH (21:38)
[2024-08-25 04:49] VITALS: TEMP 98.1
[2024-08-25 05:44] LABS: Glucose,Whole Blood 160 mg/dL (70-110)
[2024-08-25 08:23] VITALS: BP 135/70; PULSE 87
[2024-08-25 08:33] LABS: African American GFR (CKD) >90 (>60 ml/min/1.73 sqM); Anion Gap 7 mmol/L; Blood Urea Nitrogen 13 mg/dL (9-20); Calcium 8.8 mg/dL (8.4-10.2); Carbon Dioxide 23 mmol/L (22-30); Chloride 105 mmol/L (98-107); Glucose 135 mg/dL (74-99); Non-African American GFR(CKD) 80 (>60 ml/min/1.73 sqM); Potassium 4.1 mmol/L (3.5-5.1); Sodium 135 mmol/L (137-145)
--- NOTE | 2024-08-25 10:57 | P.PN ---
Subjective HISTORY OF PRESENT ILLNESS: This is a 79-year-old male with a past medical history significant for coronary artery disease with previous stenting, hypertension, hyperlipidemia, diabetes, peripheral vascular disease, and obesity. Patient follows in the office with Dr. Aranda. We have been asked to see the patient in consultation for elevated tr oponins. Patient examined at the bedside in the emergency room. Patient initially presented to the hospital for chief complaint of epigastric pain. He reports having mild chest discomfort as well. He denies any shortness of breath. He denies any radiation of the pain. Patient was found to have elevated troponins was started on IV heparin. At the time of examination he denies any chest pain or pressure. DIAGNOSTICS: - EKG reveals sinus mechanism with nonspecific ST-T wave changes - Chest xray cardiac silhouette mildly enlarged, exaggerated by technique. Low lung volumes with central bronchovascular crowding. Small amount of bibasilar subsegmental atelectasis similar to previous - Laboratory data: WBC 4.66. Hemoglobin 11.9. Platelet count 123. Sodium 134. Potassium 4.2. BUN 25. Creatinine 1.27. Troponin 0.012. 0.372. 0.391. - Current home cardiac medications include aspirin 81 mg daily, Lipitor 40 mg daily, Zetia 10 mg daily, Imdur 60 mg daily, metoprolol tartrate 12.5 mg twice a day, amlodipine 10 mg daily. - Most recent echocardiogram obtained in December 2023 revealed ejection fraction 55 to 60%, mild concentric LVH, no significant valvular disease - Cardiac catheterization history: April 2023 revealing severe stenosis in proximal left circumflex, patent stent in LAD, RCA, and first OM. Mild disease in the LAD and RCA. Patient underwent successful stenting of the ostium and proximal left circumflex. 08/25/2024 Patient examined this morning at the bedside. He is status post cardiac catheterization yesterday with Dr. Aranda revealing severe stenosis at the ostium of the LAD. Patent stent in the mid LAD, OM1, proximal left circumflex, and proximal RCA with mild in-stent restenosis, mild to moderate disease in the ostium of the left circumflex. Patient underwent stenting of the ostium of the LAD. Patient currently denies any chest pain or pressure. She denies any shortness of breath. Vital signs are stable. He is hoping to be discharged lou today. PHYSICAL EXAM: VITAL SIGNS: Reviewed. GENERAL: Well-developed in no acute distress. HEENT: Head is normocephalic. Pupils are equal, round. Sclerae anicteric. Mucous membranes of the mouth are moist. Neck supple. No JVD or thyromegaly LUNGS: Respirations even and unlabored. Lungs essentially clear to auscultation bilaterally. HEART: Regular rate and rhythm. S1 and S2 heard. ABDOMEN: Soft. Nondistended. Nontender. EXTREMITIES: Normal range of motion. No clubbing or cyanosis. Peripheral pulses intact. No lower extremity edema NEUROLOGIC: Awake and alert. Oriented x 3. ASSESSMENT: Non-STEMI, status post cardiac catheterization with stenting of the ostium of the LAD Coronary artery disease with previous multivessel stenting Hypertension Hyperlipidemia Diabetes Peripheral vascular disease Obesity: BMI 31.0 PLAN: Continue dual antiplatelet therapy with aspirin and Brilinta for 12 months Continue high intensity statin. LDL goal less than 70 Continue additional cardiac medications including Zetia, Imdur, metoprolol Patient is stable for discharge home today from a cardiac standpoint Patient to follow-up postdischarge in the office with Dr. Aranda Nurse practitioner note has been reviewed by physician. Signing provider agrees with the documented findings, assessment, and plan of care documented by CONSERVATION TECHNICIAN as a scribe. Objective - Vital Signs Vital signs: Vital Signs Temp 98.1 F 08/25/24 08:00 Pulse 87 08/25/24 08:00 Resp 18 08/25/24 08:00 BP 135/70 08/25/24 08:00 Pulse Ox 97 08/25/24 08:00 FiO2 Intake & Output 08/24/24 08/25/24 08/25/24 18:59 06:59 18:59 Intake Total 1454.457 360 Output Total 400 Balance 1054.457 360 Weight 95.254 kg 84.4 kg Intake: IV 550 Intake, IV Titration 64.457 Amount Heparin Sod,Pork in 0.45% 64.457 NaCl 25,000 unit In 0.45 % NaCl 1 250ml.bag @ 18 UNITS/KG/HR 17.146 mls/hr IV .[id number] SYDNEY Rx#: [id number] Oral 840 360 Output: Urine 400 Other: # Voids 2 1 - Labs CBC & Chem 7: 08/24/24 07:48 08/25/24 07:06 Labs: Abnormal Lab Results - Last 24 Hours (Table) 08/24/24 08/24/24 08/25/24 Range/Units 16:40 20:09 05:42 Sodium (137-145) mmol/L Glucose (74-99) mg/dL POC Glucose (mg/dL) 208 H 196 H 160 H (70-110) mg/dL 08/25/24 Range/Units 07:06 Sodium 135 L (137-145) mmol/L Glucose 135 H (74-99) mg/dL POC Glucose (mg/dL) (70-110) mg/dL
[2024-08-25 12:02] LABS: Glucose,Whole Blood 175 mg/dL (70-110)
[2024-08-25 14:20] VITALS: BMI 27.4
--- NOTE | 2024-08-25 14:48 | P.DS ---
Providers Date of admission: 08/24/24 14:25 Expected date of discharge: 08/25/24 Attending physician: Pete Fountain Consults: 08/23/24 04:04 Consult Physician Routine Consulting Provider: Ree Aranda Consult Reason/Comments: cp Do you want consulting provider notified?: Yes 08/23/24 17:31 Consult Physician Routine Consulting Provider: Charanjit Moore V Consult Reason/Comments: chest pain Do you want consulting provider notified?: Yes 08/24/24 11:55 Consult Physician Routine Consulting Provider: [facility] Consult Reason/Comments: Post Interventional Patient Do you want consulting provider notified?: Already Contacted Primary care physician: Peteroxana JessicaEssie [facility] Course: Diagnosis on discharge: Episode of chest pain Status post cardiac catheterization with stent to the LAD on 08/24/2024 Known history of coronary artery disease with previous history of angioplasty and stent placement Underlying history of hypertension. Underlying history of diabetes mellitus Underlying history of peripheral vascular disease Underlying history of asthma without evidence of exacerbation Hospital course: Primitivo Benjamin, is an 79-year-old male who presented to [facility] emergency room with a chief complaint of chest pain He was evaluated in the emergency room vital examination on presentation revealed a temperature of 100.8 pulse 98 respiration 20 blood pressure 188/84 pulse ox 93% on room air Laboratory data revealed a temperature of 6.86 hemoglobin 11.7 platelet count 198 D-dimer 2.16 BUN 25 creatinine 1.27 Testing in the emergency room revealed chest x-ray revealed low lung volumes and small amount of bibasilar subsegmental atelectasis similar to previous, chest CT angiogram revealed no evidence of pulmonary embolism Patient was admitted to medical floor for further evaluation and treatment, cardiology consultation was requested On 08/24/2024 patient is alert and oriented x 3 status post cardiac catheterization with stent placement to the ostium of the LAD patient to continue on Brilinta and aspirin for 1 year. Per nursing staff patient will be monitored on selective care today with hopeful discharge home tomorrow. Patient denies chest pain or shortness of breath. Patient denies nausea vomiting or diarrhea. Patient denies any urinary burning or frequency 08/25/2024 patient was seen and examined on the medical floor he is alert and oriented x 3 in no apparent distress there is no fever or chills no headache or dizziness no chest pain no shortness of breath no cough no nausea or vomiting no abdominal pain no diarrhea no urinary symptoms. Patient was cleared for discharge, a prescription for Brilinta was sent to patient's pharmacy, portance of taking medications as prescribed emphasized to patient, will be discharged to home today follow-up in our office within 1 week follow-up with cardiology in 1 to 2-week Patient Condition at Discharge: Undetermined Plan - Discharge Summary Discharge Rx Participant: Yes New Discharge Prescriptions: New Ticagrelor [Brilinta] 90 mg PO BID 30 Days #60 tab Continue amLODIPine BESYLATE [Norvasc] 10 mg PO DAILY Insulin Glargine (Lantus) [Lantus Vial] 70 unit SQ HS INSULIN LISPRO (humaLOG) [humaLOG] 15 - 20 units SQ AC-TID Tamsulosin [Flomax] 0.4 mg PO HS 30 Days #30 cap Pregabalin [Lyrica] 225 mg PO BID Aspirin 81 mg PO DAILY 30 Days #30 tab Cyclobenzaprine [Flexeril] 5 mg PO HS PRN PRN Reason: Muscle Spasm Atorvastatin [Lipitor] 40 mg PO HS Omeprazole [PriLOSEC] 20 mg PO BID Nitroglycerin Sl Tabs [Nitrostat] 0.4 mg SL Q5M PRN PRN Reason: Chest Pain Ezetimibe [Zetia] 10 mg PO DAILY Isosorbide Mononitrate ER [Imdur] 60 mg PO DAILY Metoprolol Tartrate [Lopressor] 12.5 mg PO BID HYDROcodone/APAP 5-325MG [[place] 5-325] 1 tab PO QID Discharge Medication List amLODIPine BESYLATE [Norvasc] 10 mg PO DAILY 04/19/14 [History] Insulin Glargine (Lantus) [Lantus Vial] 70 unit SQ HS 07/20/19 [History] INSULIN LISPRO (humaLOG) [humaLOG] 15 - 20 units SQ AC-TID 01/09/20 [History] Atorvastatin [Lipitor] 40 mg PO HS 09/19/22 [History] Omeprazole [PriLOSEC] 20 mg PO BID 11/21/22 [History] Nitroglycerin Sl Tabs [Nitrostat] 0.4 mg SL Q5M PRN 06/18/23 [History] Ezetimibe [Zetia] 10 mg PO DAILY 04/01/24 [History] Isosorbide Mononitrate ER [Imdur] 60 mg PO DAILY 04/22/24 [History] Metoprolol Tartrate [Lopressor] 12.5 mg PO BID 04/22/24 [History] Tamsulosin [Flomax] 0.4 mg PO HS 30 Days #30 cap 04/23/24 [Rx] Aspirin 81 mg PO DAILY 30 Days #30 tab 07/07/24 [Rx] HYDROcodone/APAP 5-325MG [[place] 5-325] 1 tab PO QID 07/07/24 [History] Pregabalin [Lyrica] 225 mg PO BID 07/07/24 [History] Cyclobenzaprine [Flexeril] 5 mg PO HS PRN 08/23/24 [History] Ticagrelor [Brilinta] 90 mg PO BID 30 Days #60 tab 08/25/24 [Rx] Follow up Appointment(s)/Referral(s): None,Stated [REFERRING] - 1-2 days
== END 2024-08-25 15:15 | disposition home or self-care (01) | DRG 322 ==
LOC: EC 00:14 → 6NMEDSUR 04:05 → 3SCARD 08:46 → OBSVTOIN 08-24 14:25 → 3SCARD 08-24 14:57
PROVIDERS: ADMIT Internal Medicine; ATTEND Internal Medicine
PROC: B2111ZZ Fluoroscopy of Multiple Coronary Arteries using Low Osmolar Contrast (ICD-10-PCS; 2024-08-24)
PROC: 027034Z Dilation of Coronary Artery, One Artery with Drug-eluting Intraluminal Device, Percutaneous Approach (ICD-10-PCS; principal; 2024-08-24 10:30)
PROC: B241ZZ3 Ultrasonography of Multiple Coronary Arteries, Intravascular (ICD-10-PCS; 2024-08-24 10:30)
PROC: 4A023N7 Measurement of Cardiac Sampling and Pressure, Left Heart, Percutaneous Approach (ICD-10-PCS; 2024-08-24 10:30)
DX: I21.4 Non-ST elevation (NSTEMI) myocardial infarction (principal); T82.855A Stenosis of coronary artery stent, initial encounter; E11.51 Type 2 diabetes mellitus with diabetic peripheral angiopathy without gangrene; E66.9 Obesity, unspecified; I10 Essential (primary) hypertension; J45.909 Unspecified asthma, uncomplicated; E11.42 Type 2 diabetes mellitus with diabetic polyneuropathy; Z79.4 Long term (current) use of insulin; I25.10 Atherosclerotic heart disease of native coronary artery without angina pectoris; Z68.31 Body mass index [BMI] 31.0-31.9, adult; E78.5 Hyperlipidemia, unspecified; Y83.1 Surgical operation with implant of artificial internal device as the cause of abnormal reaction of the patient, or of later complication, without mention of misadventure at the time of the procedure; G89.4 Chronic pain syndrome; H91.90 Unspecified hearing loss, unspecified ear; Z79.899 Other long term (current) drug therapy; Z79.82 Long term (current) use of aspirin; Z79.02 Long term (current) use of antithrombotics/antiplatelets; Z97.4 Presence of external hearing-aid; Z82.49 Family history of ischemic heart disease and other diseases of the circulatory system
CPT/HCPCS: 36415; 71045; 71275; 76705; 80048; 80053; 81003; 83605; 83690; 83735; 83880; 84100; 84484; 85025; 85379; 85610; 85730; 87636; 92978; 93005; 93458; 96365; 96366; 96367; 96375; 96376; 99285